=== PATIENT | male | born 1925 | race Caucasian/White ===

== ENCOUNTER 2017-01-08 12:32 | Emergency (ER) | payer OTHER, BC ==
[2017-01-08 12:47] VITALS: TEMP 98.4; BMI 31.3
--- NOTE | 2017-01-08 13:03 | PDOC ---
History of Present Illness - General History Source: Patient, Spouse - History of Present Illness Occurred: reports: this morning Pain Location: reports: lower extremity <Starla Ledbetter - Last Filed: 01/08/17 18:55> <Brianna Hoang - Last Filed: 01/08/17 20:58> - General Chief Complaint: Pain Stated Complaint: HIP PAIN Time Seen by Provider: 01/08/17 12:46 Past History - Past Medical History Anemia: No Asthma: No Cancer: Yes (PROSTATE) Cardiac Disorders: No CVA: Yes (TIA) COPD: Yes CHF: No Dementia: No Diabetes: No GI Disorders: No Disorders: Yes HTN: Yes Hypercholesterolemia: No Liver Disease: No Suicide Attempt (Hx): No Seizures: No Thyroid Disease: No - Surgical History Abdominal Surgery: No Appendectomy: No Cardiac Surgery: Yes (Stents) Cholecystectomy: No Lung Surgery: No Neurologic Surgery: No - Psycho/Social/Smoking Cessation Hx Anxiety: No Suicidal Ideation: No Smoking Status: No Smoking History: Former smoker Have you smoked in the past 12 months: No Number of Cigarettes Smoked Daily: 0 If you are a former smoker, when did you quit?: over 20 years go Information on smoking cessation initiated: No Hx Alcohol Use: No Drug/Substance Use Hx: No Substance Use Type: None Hx Substance Use Treatment: No <Starla Ledbetter - Last Filed: 01/08/17 18:55> <Brianna Hoang - Last Filed: 01/08/17 20:58> - Past Medical History Allergies/Adverse Reactions: Allergies Allergy/AdvReac Type Severity Reaction Status Date / Time Anesthetics - Angle Type- Allergy Unknown Verified 01/08/17 12:45 Parabens [Anesthetics - Angle Type] latex Allergy Verified 01/08/17 12:45 Home Medications: Ambulatory Orders Albuterol 0.083% Nebulizer Lela [Ventolin 0.083% Nebulizer Soln -] 1 neb NEB BID 09/30/14 Amlodipine Besylate [Norvasc -] 5 mg PO DAILY 09/30/14 Aspirin/Dipyridamole [Aggrenox -] 1 combo PO BID 09/30/14 Cholecalciferol (Vitamin D3) [Vitamin D3] 1,000 unit PO DAILY 09/30/14 Cholestyramine/Sucrose [Cholestyramine Packet] 4 gm PO BID PRN 09/30/14 Fluticasone Propionate [Flovent Hfa] 110 mg IH BID 09/30/14 Levetiracetam [Keppra -] 750 mg PO BID 09/30/14 Lipase/Protease/Amylase [Pancrease EC Capsule] 4 each PO DAILY 09/30/14 Loratadine 10 mg PO DAILY 09/30/14 Losartan Potassium 50 mg PO DAILY 09/30/14 Montelukast Na [Singulair -] 10 mg PO HS 09/30/14 Simvastatin [Zocor] 20 mg PO HS 09/30/14 Solifenacin Succinate [Vesicare] 10 mg PO DAILY 09/30/14 Tamsulosin HCl [Flomax -] 0.4 mg PO DAILY 09/30/14 Tiotropium [place] [Spiriva] 1 inh PO DAILY 09/30/14 Lipase/Protease/Amylase [Pancrelipase 5,000 Dr Capsule -] 2 each PO BIDWM #60 cap 10/06/14 Oxymetazoline 0.05% Nasal Soln [Afrin -] 2 spray NS BID PRN #7 spraybtl Ranitidine [Zantac -] 150 mg PO BID #30 tablet 10/06/14 Sulfamethoxazole/Trimethoprim [Bactrim DS -] 1 tab PO BID #14 tablet 01/08/17 Tramadol HCl 50 mg PO Q6H #20 tablet MDD 200mg 01/08/17 Review of Systems - Review of Systems Constitutional: No: Chills, Fever HEENTM: No: Difficulty Swallowing Respiratory: No: Shortness of Breath Cardiac (ROS): No: Chest Pain ABD/GI: No: Nausea, Vomiting : Yes: Flank Pain. No: Dysuria, Hematuria Musculoskeletal: Yes: Joint Pain. No: Back Pain Neurological: Yes: Dizziness. No: Headache, Weakness <Starla Ledbetter - Last Filed: 01/08/17 18:55> *Physical Exam - Vital Signs Last Vital Signs Temp Pulse Resp BP Pulse Ox 98.4 F 88 20 149/74 98 01/08/17 12:39 01/08/17 12:39 01/08/17 12:39 01/08/17 12:39 01/08/17 12:39 - Physical Exam General Appearance: Yes: Appropriately Dressed. No: Apparent Distress HEENT: positive: Normal Voice Neck: positive: Supple Respiratory/Chest: positive: Lungs Clear, Normal Breath Sounds. negative: Respiratory Distress Gastrointestinal/Abdominal: positive: Soft Musculoskeletal: negative: CVA Tenderness Extremity: positive: Normal Inspection, Tender (poorly localized ttp over R flank, no rash) Integumentary: positive: Dry, Warm Neurologic: positive: Fully Oriented, Alert, Normal Mood/Affect, Motor Strength 5/5, Finger to Nose. negative: Facial Droop (Magalie intact, no drift) <Starla Ledbetter - Last Filed: 01/08/17 18:55> - Vital Signs Last Vital Signs Temp Pulse Resp BP Pulse Ox 98.4 F 76 20 116/55 96 01/08/17 12:39 01/08/17 20:07 01/08/17 20:07 01/08/17 20:07 01/08/17 20:07 <Brianna Hoang - Last Filed: 01/08/17 20:58> ED Treatment Course - LABORATORY CBC & Chemistry Diagram: 01/08/17 13:36 01/08/17 13:36 - RADIOLOGY Radiology Studies Ordered: Category Date Time Status CHEST X-RAY PORTABLE* [RAD] Stat Radiology 01/08/17 12:57 Ordered HIP & PELVIS-RIGHT [RAD] Stat Radiology 01/08/17 12:57 Ordered RIBS BILATERAL [RAD] Stat Radiology 01/08/17 12:56 Ordered SPINE-LUMBAR SACRAL [RAD] Stat Radiology 01/08/17 12:57 Ordered <GormaniaStarla - Last Filed: 01/08/17 18:55> - LABORATORY CBC & Chemistry Diagram: 01/08/17 13:36 01/08/17 13:36 - ADDITIONAL ORDERS Additional order review: Laboratory Results 01/08/17 01/08/17 13:36 13:31 Sodium 139 Potassium 5.1 Chloride 102 Carbon Dioxide 26 Anion Gap 11 BUN 31 H D Creatinine 1.2 Creat Clearance w eGFR 57.01 Random Glucose 97 Calcium 9.1 Total Bilirubin 0.4 AST 22 D ALT 20 D Alkaline Phosphatase 68 Creatine Kinase 114 Troponin I < 0.02 Total Protein 7.1 Albumin 3.5 Urine Color Ltyellow Urine Appearance Clear Urine pH 5.0 Ur Specific [place] 1.019 Urine Protein Negative Urine Glucose (UA) Negative Urine Ketones Negative Urine Blood 2+ H Urine Nitrite Negative Urine Bilirubin Negative Urine Urobilinogen Negative Ur Leukocyte Esterase 2+ H Urine RBC 47 Urine WBC 42 Ur Epithelial Cells Rare 01/08/17 13:36 RBC 4.41 MCV 91.7 MCHC 32.2 RDW 16.0 H MPV 7.7 Neutrophils % 86.5 H D Lymphocytes % 6.2 L D Monocytes % 6.2 Eosinophils % 0.4 D Basophils % 0.7 - Medications Given in the ED: ED Medications Discontinued Medications Generic Name Dose Route Start Last Admin Trade Name Jordon PRN Reason Stop Dose Admin Diazepam 5 mg 01/08/17 13:29 01/08/17 13:52 Valium - PO 01/08/17 13:30 5 mg ONCE ONE Administration Ceftriaxone Sodium 1 gm/ 50 mls @ 100 mls/hr 01/08/17 17:56 01/08/17 18:22 Dextrose IVPB 01/08/17 18:25 100 mls/hr ONCE ONE Administration Ketorolac Tromethamine 30 mg 01/08/17 13:30 01/08/17 14:07 Toradol Injection - IVPUSH 01/08/17 13:31 30 mg ONCE ONE Administration Tramadol HCl 50 mg 01/08/17 17:45 01/08/17 17:54 Ultram - PO 01/08/17 17:46 50 mg ONCE ONE Administration <Brianna Hoang - Last Filed: 01/08/17 20:58> Medical Decision Making - Medical Decision Making 01/08/17 12:58 89 yo M, obesity, bladder cancer s/p surgery, prostate ca, s/p chemo/xrt, COPD on oxygen, HTN, CAD w/ stents, CHF, CVA/TIA, ambulate w/ walker, BIB for R hip pain. pt reports waking up with R hip pain this am, unable to describe, constant and has not been able to bear weight since. Denies trauma. Took tylenol w/ no relief. States he has "all sorts of pain" chronically but that this pain is new. Also c/o "whooziness" this am, similar to in the past. Denies vertigo, visual changes, n/v, focal weakness, chest pain or sob. See exam R sided pain No trauma Unclear source at this time as has poorly localized tenderness on exam ?MSK vs renal stone -pain control -XRs -reassess -labs ?dizziness Recurrent No focal deficit on exam No chest/resp complaints -ekg/cxr/labs 01/08/17 13:05 01/08/17 15:49 Wbc 12 w/ +bld and LE on ua. Ucx sent. Will give abx for possibly pyelo as per d /w Dr Geronimo. Will dry scan r/o stone at this time. Pain improved at present 01/08/17 17:48 XRs w/ disc disease to LS spine as d/w ED attg. CR without no stone or s/o infection. Pt continues to c/o pain though improved. Will continue to manage pain and reassess 01/08/17 17:57 01/08/17 18:27 01/08/17 18:56 Pain improved and pt able to bear weight. insisting on us admitting pt as she states she is afraid she cannot adequately care for pt at home. I explained to spouse that as pt feeling better, it is worth it to send him home on pain meds and abx and see if he continues to improve. I explained to her that pt can always return for persistent or worsening of sxs but that here is no medical reason to admit at this time and that ED cannot perform social admissions. informed that she can f/u with PMD to assist w/ home care going forward. verbalized understanding but states she will write "under protest" on discharge paper. offered transport but states she has a close family friend who can come pick pt up and bring his oxygen tank. ED nurse aware 01/08/17 19:08 01/08/17 19:12 <Starla Ledbetter - Last Filed: 01/08/17 18:55> *DC/Admit/Observation/Transfer <Starla Ledbetter - Last Filed: 01/08/17 18:55> <Brianna Hoang - Last Filed: 01/08/17 20:58> Diagnosis at time of Disposition: Flank pain - Discharge Dispostion Disposition: HOME Condition at time of disposition: Improved - Prescriptions Prescriptions: Sulfamethoxazole/Trimethoprim [Bactrim DS -] 1 tab PO BID #14 tablet Tramadol HCl 50 mg PO Q6H #20 tablet MDD 200mg - Referrals Referrals: Karli Walsh MD [Primary Care Provider] - - Patient Instructions Printed Discharge Instructions: Low Back Pain Additional Instructions: Please take medications as prescribed Return to ED for persistent and/or worsening symptoms Please follow with your PMD for assistance with home services
[2017-01-08] MEDS ORDERED: diazePAM 5 MG TABLET PO ONE (13:29)
[2017-01-08] MEDS ORDERED: KETOROLAC TROMETHAMINE 30 MG/1 ML VIAL IVPUSH ONE (13:30)
[2017-01-08] MEDS ORDERED: KETOROLAC TROMETHAMINE 30 MG/1 ML VIAL ONE (13:35)
[2017-01-08] MEDS ORDERED: diazePAM 5 MG TABLET ONE (13:35)
[2017-01-08 14:44] LABS: BASOPHIL 0.7 % (0-2.0); EOSINOPHIL 0.4 % (0-4.5); MCH 29.6 pg (25.7-33.7); MCHC 32.2 g/dl (32.0-35.9); MEAN CELL VOLUME 91.7 fl (80-96); MEAN PLT VOLUME 7.7 fl (7.5-11.1); NEUTROPHILS 86.5 % (42.8-82.8); PLATELET COUNT 172 K/MM3 (134-434)
[2017-01-08 14:59] LABS: ALBUMIN 3.5 g/dl (3.4-5.0); ANION GAP 11 (8-16); BILIRUBIN,TOTAL 0.4 mg/dL (0.2-1.0); CALCIUM 9.1 mg/dL (8.5-10.1); CO2 26 mmol/L (21-32); COCKROFT - GAULT 53.54; CREATININE 1.2 mg/dL (0.7-1.3); GLUCOSE,RANDOM 97 mg/dL (74-106); SGPT/ALT 20 U/L (12-78); TOT PROT 7.1 g/dl (6.4-8.2)
[2017-01-08 15:02] LABS: ALK PHOS 68 U/L (45-117); TROPONIN I < 0.02 ng/ml (0.00-0.05)
[2017-01-08 15:03] LABS: SGOT/AST 22 U/L (15-37)
[2017-01-08 15:26] LABS: URINE APPEARANCE CLEAR; URINE BILIRUBIN NEGATIVE (NEGATIVE); URINE COLOR LTYELLOW; URINE GLUCOSE (UA) NEGATIVE (NEGATIVE); URINE KETONE NEGATIVE (NEGATIVE); URINE NITRITE NEGATIVE (NEGATIVE); URINE PROTEIN NEGATIVE (NEGATIVE); URINE UROBILINOGEN NEGATIVE E.U./dl (0.2-1.0)
[2017-01-08 15:36] LABS: URINE BLOOD 2+ (NEGATIVE); URINE LEUK ESTERASE 2+ (NEGATIVE)
[2017-01-08 16:00] LABS: URINE RBC 47 /hpf (0-3); URINE WBC 42 /hpf (3-5)
--- NOTE | 2017-01-08 17:35 | PDOC ---
[id number] 98 01/08/17 12:39 01/08/17 12:39 01/08/17 12:39 01/08/17 12:39 01/08/17 12:39 ED Treatment Course - LABORATORY CBC & Chemistry Diagram: 01/08/17 13:36 01/08/17 13:36 - ADDITIONAL ORDERS Additional order review: Laboratory Results 01/08/17 01/08/17 13:36 13:31 Sodium 139 Potassium 5.1 Chloride 102 Carbon Dioxide 26 Anion Gap 11 BUN 31 H D Creatinine 1.2 Creat Clearance w eGFR 57.01 Random Glucose 97 Calcium 9.1 Total Bilirubin 0.4 AST 22 D ALT 20 D Alkaline Phosphatase 68 Creatine Kinase 114 Troponin I < 0.02 Total Protein 7.1 Albumin 3.5 Urine Color Ltyellow Urine Appearance Clear Urine pH 5.0 Ur Specific [place] 1.019 Urine Protein Negative Urine Glucose (UA) Negative Urine Ketones Negative Urine Blood 2+ H Urine Nitrite Negative Urine Bilirubin Negative Urine Urobilinogen Negative Ur Leukocyte Esterase 2+ H Urine RBC 47 Urine WBC 42 Ur Epithelial Cells Rare 01/08/17 13:36 RBC 4.41 MCV 91.7 MCHC 32.2 RDW 16.0 H MPV 7.7 Neutrophils % 86.5 H D Lymphocytes % 6.2 L D Monocytes % 6.2 Eosinophils % 0.4 D Basophils % 0.7 - Medications Given in the ED: ED Medications Discontinued Medications Generic Name Dose Route Start Last Admin Trade Name Freq PRN Reason Stop Dose Admin Diazepam 5 mg 01/08/17 13:29 01/08/17 13:52 Valium - PO 01/08/17 13:30 5 mg ONCE ONE Administration Ketorolac Tromethamine 30 mg 01/08/17 13:30 01/08/17 14:07 Toradol Injection - IVPUSH 01/08/17 13:31 30 mg ONCE ONE Administration Medical Decision Making - Medical Decision Making 01/08/17 17:34 Patient seen and evaluated with the nurse practitioner. I agree with the overall evaluation, assessment, and management with the following summary of visit: 89-year-old male with nonspecific right-sided abdominal pain but no other localizing complaints. Workup reveals white count of 12, chemistries within normal limits, negative troponin, but urinalysis with elevated red and white blood cells. Will check CT abdomen and pelvis to rule out obstruction or neoplastic pathology , would otherwise treat for UTI/pyelonephritis with oral antibiotics given well- appearing and afebrile. *DC/Admit/Observation/Transfer Diagnosis at time of Disposition: Flank pain - Discharge Dispostion Disposition: HOME Condition at time of disposition: Improved - Prescriptions Prescriptions: Sulfamethoxazole/Trimethoprim [Bactrim DS -] 1 tab PO BID #14 tablet Tramadol HCl 50 mg PO Q6H #20 tablet MDD 200mg - Referrals Referrals: Karli Walsh MD [Primary Care Provider] - - Patient Instructions Printed Discharge Instructions: Low Back Pain Additional Instructions: Please take medications as prescribed Return to ED for persistent and/or worsening symptoms Please follow with your PMD for assistance with home services
[2017-01-08] MEDS ORDERED: traMADol HCL 50 MG TABLET PO ONE (17:45)
[2017-01-08] MEDS ORDERED: traMADol HCL 50 MG TABLET ONE (17:49)
[2017-01-08] MEDS ORDERED: CEFTRIAXONE 1 GM in DEXTROSE 5%-WATER - 50 ML IVPB ONE (17:56)
[2017-01-08] MEDS ORDERED: CEFTRIAXONE 50 ML ONE (18:00)
[2017-01-08 20:08] VITALS: BP 116/55; PULSE 76
--- NOTE | 2017-01-09 13:30 | EKG ---
Test Reason : Blood Pressure : / mmHG Vent. Rate : 124 BPM Atrial Rate : 077 BPM P-R Int : 000 ms QRS Dur : 148 ms QT Int : 422 ms P-R-T Axes : 040 -28 020 degrees QTc Int : 606 ms SINUS TACHYCARDIA WITH 1ST DEGREE A-V BLOCK RIGHT BUNDLE BRANCH BLOCK ABNORMAL ECG Confirmed by AVANI JOY MD ([id number]) on 01/09/2017 1:30:10 PM Referred By: Confirmed By:AVANI JOY MD
== END 2017-01-08 20:09 | disposition home or self-care (01) ==
LOC: JER 12:32
PROC: 3E03329 Introduction of Other Anti-infective into Peripheral Vein, Percutaneous Approach (ICD-10-PCS; principal; 2017-01-08)
PROC: 3E0333Z Introduction of Anti-inflammatory into Peripheral Vein, Percutaneous Approach (ICD-10-PCS; 2017-01-08)
DX: R10.31 Right lower quadrant pain (principal); I25.10 Atherosclerotic heart disease of native coronary artery without angina pectoris; I11.0 Hypertensive heart disease with heart failure; Z95.5 Presence of coronary angioplasty implant and graft; Z86.73 Personal history of transient ischemic attack (TIA), and cerebral infarction without residual deficits; J44.9 Chronic obstructive pulmonary disease, unspecified; Z99.81 Dependence on supplemental oxygen; Z85.46 Personal history of malignant neoplasm of prostate; Z85.51 Personal history of malignant neoplasm of bladder
CPT/HCPCS: 36415; 71010-TC; 71111-TC; 72100-TC; 73523-TC; 74176-TC; 80053; 81003; 81015; 82550; 84484; 85025; 87086; 93005; 93010; 96365; 96375; 99282-25

== ENCOUNTER 2017-03-08 02:50 | Inpatient (IN) | payer OTHER, BC ==
[2017-03-08 03:10] VITALS: BMI 31.3
[2017-03-08 03:16] LABS: BASOPHIL 0.3 % (0-2.0); EOSINOPHIL 1.4 % (0-4.5); MCH 29.8 pg (25.7-33.7); MCHC 32.6 g/dl (32.0-35.9); MEAN CELL VOLUME 91.6 fl (80-96); MEAN PLT VOLUME 8.5 fl (7.5-11.1); PLATELET COUNT 222 K/MM3 (134-434); RDW 16.2 % (11.9-15.9); WHITE BLOOD COUNT 18.7 K/mm3 (4.0-10.0)
--- NOTE | 2017-03-08 03:29 | PDOC ---
History of Present Illness - General History Source: Patient, EMS, Family, Old Records Exam Limitations: No Limitations - History of Present Illness Initial Comments: 03/08/17 03:56 The patient is a 89 year old male, accompanied by , with a significant past medical history of CHF, COPD, CVA/TIA, hypertension, PVD, prostate cancer, cardiac stents, BIBA to the emergency department today for further evaluation of sudden worsening shortness of breath since. As per EMS the patient was non verbal but was responsive. In the ED the patients confirmed his living will to be DNR and DNI. EMS administered 1 duoneb en route to the emergency department. PCP: Dr. Walsh (not affiliated with [facility]) <Pardeep Marvin - Last Filed: 03/08/17 03:56> <Zora Mccallum - Last Filed: 03/08/17 05:19> - General Chief Complaint: Respiratory Distress Stated Complaint: DIFFICULTY BREATHING Time Seen by Provider: 03/08/17 03:04 Past History <Pardeep Marvin - Last Filed: 03/08/17 03:56> - Past Medical History Anemia: No Asthma: No Cancer: Yes (PROSTATE) Cardiac Disorders: No CVA: Yes (TIA) COPD: Yes CHF: No Dementia: No Diabetes: No GI Disorders: No Disorders: Yes HTN: Yes Hypercholesterolemia: No Liver Disease: No Suicide Attempt (Hx): No Seizures: No Thyroid Disease: No - Surgical History Abdominal Surgery: No Appendectomy: No Cardiac Surgery: Yes (Stents) Cholecystectomy: No Lung Surgery: No Neurologic Surgery: No - Psycho/Social/Smoking Cessation Hx Anxiety: No Suicidal Ideation: No Smoking Status: No Smoking History: Unknown if ever smoked Have you smoked in the past 12 months: No Number of Cigarettes Smoked Daily: 0 If you are a former smoker, when did you quit?: over 20 years go Information on smoking cessation initiated: No Hx Alcohol Use: No Drug/Substance Use Hx: No Substance Use Type: None Hx Substance Use Treatment: No <Zora Mccallum - Last Filed: 03/08/17 05:19> - Past Medical History Allergies/Adverse Reactions: Allergies Allergy/AdvReac Type Severity Reaction Status Date / Time Anesthetics - Angle Type- Allergy Unknown Verified 03/08/17 03:04 Parabens [Anesthetics - Angle Type] latex Allergy Verified 03/08/17 03:04 Home Medications: Ambulatory Orders Albuterol 0.083% Nebulizer Lela [Ventolin 0.083% Nebulizer Soln -] 1 neb NEB BID 09/30/14 Amlodipine Besylate [Norvasc -] 5 mg PO DAILY 09/30/14 Aspirin/Dipyridamole [Aggrenox -] 1 combo PO BID 09/30/14 Cholecalciferol (Vitamin D3) [Vitamin D3] 1,000 unit PO DAILY 09/30/14 Cholestyramine/Sucrose [Cholestyramine Packet] 4 gm PO BID PRN 09/30/14 Fluticasone Propionate [Flovent Hfa] 110 mg IH BID 09/30/14 Levetiracetam [Keppra -] 750 mg PO BID 09/30/14 Lipase/Protease/Amylase [Pancrease EC Capsule] 4 each PO DAILY 09/30/14 Loratadine 10 mg PO DAILY 09/30/14 Losartan Potassium 50 mg PO DAILY 09/30/14 Montelukast Na [Singulair -] 10 mg PO HS 09/30/14 Simvastatin [Zocor] 20 mg PO HS 09/30/14 Solifenacin Succinate [Vesicare] 10 mg PO DAILY 09/30/14 Tamsulosin HCl [Flomax -] 0.4 mg PO DAILY 09/30/14 Tiotropium [place] [Spiriva] 1 inh PO DAILY 09/30/14 Lipase/Protease/Amylase [Pancrelipase 5,000 Dr Capsule -] 2 each PO BIDWM #60 cap 10/06/14 Oxymetazoline 0.05% Nasal Soln [Afrin -] 2 spray NS BID PRN #7 spraybtl Ranitidine [Zantac -] 150 mg PO BID #30 tablet 10/06/14 Sulfamethoxazole/Trimethoprim [Bactrim DS -] 1 tab PO BID #14 tablet 01/08/17 Tramadol HCl 50 mg PO Q6H #20 tablet MDD 200mg 01/08/17 Review of Systems - Review of Systems Able to Perform ROS?: Yes Comments:: 03/08/17 03:56 GENERAL/CONSTITUTIONAL: No fever or chills. No weakness. HEAD, EYES, EARS, NOSE AND THROAT: No change in vision. No ear pain or discharge. No sore throat. GASTROINTESTINAL: No nausea, vomiting, diarrhea or constipation. GENITOURINARY: No dysuria, frequency, or change in urination. CARDIOVASCULAR: No chest pain. RESPIRATORY: (+) Shortness of breath. No cough, wheezing, or hemoptysis. MUSCULOSKELETAL: No joint or muscle swelling or pain. No neck or back pain. SKIN: No rash NEUROLOGIC: No headache, vertigo, loss of consciousness, or change in strength/ sensation. ENDOCRINE: No increased thirst. No abnormal weight change. HEMATOLOGIC/LYMPHATIC: No anemia, easy bleeding, or history of blood clots. ALLERGIC/IMMUNOLOGIC: No hives or skin allergy. <Pardeep Marvin - Last Filed: 03/08/17 03:56> *Physical Exam - Vital Signs Last Vital Signs Temp Pulse Resp BP Pulse Ox 82 32 H 125/59 89 L 03/08/17 03:39 03/08/17 03:39 03/08/17 03:39 03/08/17 03:32 - Physical Exam Comments: 03/08/17 03:56 GENERAL: (+) Awake, alert, diaphoretic HEAD: No signs of trauma EYES: PERRLA, EOMI, sclera anicteric, conjunctiva clear ENT: Auricles normal inspection, nares patent, Moist mucosa NECK: Normal ROM, supple, no lymphadenopathy, JVD, or masses LUNGS: (+) Severe respiratory distress with accessory muscle use and decreased breath sound. HEART: (+) Tachycardic regular rhythm, normal S1 and S2, no murmurs, rubs or gallops ABDOMEN: Soft, nontender, normoactive bowel sounds. No guarding, no rebound. No masses EXTREMITIES: Normal range of motion, no edema. No clubbing or cyanosis. No cords, erythema, or tenderness. NEUROLOGICAL: Normal speech SKIN: (+) Cool, clammy, normal turgor, no rashes or lesions noted. <Pardeep Marvin - Last Filed: 03/08/17 03:56> - Vital Signs Last Vital Signs Temp Pulse Resp BP Pulse Ox 121 H 28 H 125/59 91 L 03/08/17 03:05 03/08/17 02:55 03/08/17 02:55 03/08/17 03:05 <Zora Mccallum - Last Filed: 03/08/17 05:19> Heart Score/ECG Review #1 General ECG Interpretation: Sinus Rhythm, Normal Rate (sinus tachycardia 110, RBBB), Normal Intervals, No acute ischemic changes Compared to previous ECG there are: No significant change - [place]: Left [place] Deviation <Zora Mccallum - Last Filed: 03/08/17 05:19> ED Treatment Course - LABORATORY CBC & Chemistry Diagram: 03/08/17 03:10 03/08/17 03:10 - ADDITIONAL ORDERS Additional order review: Laboratory Results 03/08/17 03/08/17 03/08/17 03:10 03:10 03:10 INR 0.92 PTT (Actin FS) 24.9 L Sodium 141 Potassium 4.9 Chloride 106 Carbon Dioxide 22 Anion Gap 13 BUN 43 H D Creatinine 1.9 H D Creat Clearance w eGFR 33.54 Random Glucose 111 H Calcium 8.7 Total Bilirubin 0.7 D AST 18 ALT 18 Alkaline Phosphatase 60 Creatine Kinase 160 D CK-MB (CK-2) Rel Index Cancelled Troponin I 0.28 H D B-Natriuretic Peptide 1591.26 H Total Protein 6.9 Albumin 3.6 03/08/17 03:10 RBC 4.41 MCV 91.6 MCHC 32.6 RDW 16.2 H MPV 8.5 D Neutrophils % 94.0 H Lymphocytes % 4.1 L D Monocytes % 0.2 L D Eosinophils % 1.4 D Basophils % 0.3 <Pardeep Marvin - Last Filed: 03/08/17 03:56> - LABORATORY CBC & Chemistry Diagram: 03/08/17 03:10 03/08/17 03:10 - ADDITIONAL ORDERS Additional order review: 03/08/17 03:10 RBC 4.41 MCV 91.6 MCHC 32.6 RDW 16.2 H MPV 8.5 D Neutrophils % 94.0 H Lymphocytes % 4.1 L D Monocytes % 0.2 L D Eosinophils % 1.4 D Basophils % 0.3 - RADIOLOGY Radiology Studies Ordered: Category Date Time Status CHEST X-RAY PORTABLE* [RAD] Stat Radiology 03/08/17 03:06 Ordered <Zora Mccallum - Last Filed: 03/08/17 05:19> Medical Decision Making - Critical Care Time Total Critical Care Time (minutes): 30 Critical Care Statement: The care of this patient involved high complexity decision making to prevent further life threatening deterioration of the patient 's condition and/or to evalute & treat vital organ system(s) failure or risk of failure. - Medical Decision Making 03/08/17 03:24 89 yo male with h/o metastatic bladder cancer HTN CAD HLD, severe end stage ecmphysema copd, currently DNR DNI, here wtih sudden onset worsenig sob . pt became very labored and sob. no f/c no cough . no cp. on EMS arrival pt was in resp distress, found to be hypoxic in 80's and hypotensive. 80's systolic. given IVF, due to DNR DNI not intubated in feild. levophed started. duoneb, and 10mg decodron. on cp pt improved and more alert on arrival. at bedside who is health care proxy. on exam awake, alert, diaphoretic, sever resp distress with accessory muscle use , tachypneic, decreased breath sounds bilaterally. heart reg tachycardia, no mrg. abd soft NT ND ext cool clammy. no edema. differential: copd exacerbation PE CHF pneumonia, [place] plan ekg labs port cxr continued BIPAP labs. per discussion with pt health care proxy present pt is DNR DNI., ok with Bipap. 03/08/17 03:30 03/08/17 03:34 03/08/17 05:15 <Zora Mccallum - Last Filed: 03/08/17 05:19> *DC/Admit/Observation/Transfer - Attestations Scribe Attestion: 03/08/17 03:56 Documentation prepared by Pardeep Marvin, acting as medical dermatologist for Zora Mccallum MD. <Pardeep Marvin - Last Filed: 03/08/17 03:56> - Discharge Dispostion Admit: Yes <Zora Mccallum - Last Filed: 03/08/17 05:19> Diagnosis at time of Disposition: COPD (chronic obstructive pulmonary disease), Pneumonia - Discharge Dispostion Condition at time of disposition: Critical - Referrals Referrals: Karli Walsh MD [Primary Care Provider] -
[2017-03-08 03:37] LABS: INR 0.92 (0.82-1.09); PROTHROMBIN TIME (PATIENT) 10.1 SEC (9.98-11.88)
[2017-03-08 03:40] LABS: ACTIVATED PTT 24.9 SECONDS (26.9-34.4)
[2017-03-08 03:43] LABS: ALBUMIN 3.6 g/dl (3.4-5.0); ANION GAP 13 (8-16); BILIRUBIN,TOTAL 0.7 mg/dL (0.2-1.0); CALCIUM 8.7 mg/dL (8.5-10.1); CO2 22 mmol/L (21-32); CREATININE 1.9 mg/dL (0.7-1.3); GLUCOSE,RANDOM 111 mg/dL (74-106); SGOT/AST 18 U/L (15-37); SGPT/ALT 18 U/L (12-78); TOT PROT 6.9 g/dl (6.4-8.2)
[2017-03-08 03:45] LABS: ALK PHOS 60 U/L (45-117); TROPONIN I 0.28 ng/ml (0.00-0.05)
[2017-03-08] MEDS ORDERED: PIPERACILLIN/TAZOB 3.375 GM 3.375 GM in DEXTROSE 5%-WATER - 50 ML IVPB ONE (04:39)
[2017-03-08] MEDS ORDERED: VANCOMYCIN 1 GRAM (PRE-DOCKED) 1,000 MG/250 ML BAG IVPB ONE (04:42)
[2017-03-08] MEDS ORDERED: ALBUTEROL SO4 2.5/IPRATROPIUM 0.5 INH SOL 3 ML VIAL.NEB. NEB ONE ×3 (04:42→12:05)
[2017-03-08] MEDS ORDERED: PIPERACILLIN/TAZOB 3.375 GM 50 ML IVPB ONE (04:45)
[2017-03-08] MEDS ORDERED: VANCOMYCIN 1 GRAM (PRE-DOCKED) 250 ML IVPB ONE (04:45)
[2017-03-08] MEDS ORDERED: SODIUM CHLORIDE 0.9% 1000 ML INFUS.BAG IV ONE (05:19)
--- NOTE | 2017-03-08 05:34 | HP ---
CHIEF COMPLAINT: sob PCP: Dr. Walsh HISTORY OF PRESENT ILLNESS: This is an 89 year old male with significant PMHx of COPD, CHF, CAD, COPD, CVA, brought to the emergency room by EMS, due to worsening shortness of breath. Patient is on 3L of [place] at home 24hrs per day. As per patient was doing well , went to graduation green party, went home, about 1pm daughter noticed he wasn't himself and he vomiting on himself. They asked him to go to the bathroom to wash up and then noticed him to start to deteriorate, un able to ambulate and unresponsive. states that he usually gets short of breath the humiditiy and gets URIs frequency As per chart patient was non verbal but responsive. En route to ER patient was hypotensive, systolic in the 80s, and hypoxic. He was given a duoneb treatment and started on levophed. Arrival to ER , blood pressure improved. Patient still hypoxic. He was started on BiPAP. ROS as per . Denies fever, chills, nausea, chest pain, palpitations. states that hes was recently finished course of antibiotics, ciprofloxacin 500mg bid for 8 days, for UTI. states that he is incontinent of urine at times due to hx of prostate CA. She also stats that after antibiotics he usually has bouts of diarrhea and currently on lactobacillus. ER course notable for tachycardia, tachypnea, leukocytosis. CXR revealing RLL infiltrate. DNR/DNI Recent Travel: no PAST MEDICAL HISTORY: COPD, CAD, COPD, CVA, CHF PAST SURGICAL HISTORY: s/p 2 stents; bladder surgery 2014 to remove cancerous polyps; Social History: Smoking:heavy smoker quit 10-12 years ago Alcohol:1-2 glasses of wine per day Drugs: no Family History: Allergies Anesthetics - Angle Type- Parabens [Anesthetics - Angle Type] Allergy (Unknown, Verified 03/08/17 03:04) latex Allergy (Verified 03/08/17 03:04) HOME MEDICATIONS: Home Medications Medication Instructions Recorded Albuterol 0.083% Nebulizer Lela 1 neb NEB BID 09/30/14 [Ventolin 0.083% Nebulizer Soln -] Amlodipine Besylate [Norvasc -] 5 mg PO DAILY 09/30/14 Aspirin/Dipyridamole [Aggrenox -] 1 combo PO BID 09/30/14 Cholecalciferol (Vitamin D3) 1,000 unit PO DAILY 09/30/14 [Vitamin D3] Cholestyramine/Sucrose 4 gm PO BID PRN 09/30/14 [Cholestyramine Packet] Fluticasone Propionate [Flovent 110 mg IH BID 09/30/14 Hfa] Levetiracetam [Keppra -] 750 mg PO BID 09/30/14 Lipase/Protease/Amylase [Pancrease 4 each PO DAILY 09/30/14 EC Capsule] Loratadine 10 mg PO DAILY 09/30/14 Losartan Potassium 50 mg PO DAILY 09/30/14 Montelukast Na [Singulair -] 10 mg PO HS 09/30/14 Simvastatin [Zocor] 20 mg PO HS 09/30/14 Solifenacin Succinate [Vesicare] 10 mg PO DAILY 09/30/14 Tamsulosin HCl [Flomax -] 0.4 mg PO DAILY 09/30/14 Tiotropium [place] [Spiriva] 1 inh PO DAILY 09/30/14 Lipase/Protease/Amylase 2 each PO BIDWM #60 cap 10/06/14 [Pancrelipase 5,000 Dr Capsule -] Oxymetazoline 0.05% Nasal Soln 2 spray NS BID PRN #7 spraybtl 10/06/14 [Afrin -] Ranitidine [Zantac -] 150 mg PO BID #30 tablet 10/06/14 Sulfamethoxazole/Trimethoprim 1 tab PO BID #14 tablet 01/08/17 [Bactrim DS -] Tramadol HCl 50 mg PO Q6H #20 tablet MDD 200mg 01/08/17 PHYSICAL EXAMINATION Vital Signs - 24 hr 03/08/17 03/08/17 03/08/17 02:55 03:05 03:32 Pulse Rate 120 H 121 H Pulse Rate [ Left Apical] Respiratory 28 H Rate Blood Pressure 125/59 Blood Pressure [Right Arm] O2 Sat by Pulse 90 L 91 L 89 L Oximetry (%) 03/08/17 03/08/17 03:39 05:12 Pulse Rate Pulse Rate [ 82 Left Apical] Respiratory 32 H Rate Blood Pressure Blood Pressure 125/59 [Right Arm] O2 Sat by Pulse 93 L Oximetry (%) GENERAL: Awake, alert, on BiAP, not able to talk; when i asked if he was in pain he nodded yes HEAD: Normal with no signs of trauma. EYES: Pupils equal, round and reactive to light, extraocular movements intact, sclera anicteric, conjunctiva clear. No lid lag. LUNGS: scattered rhonchi HEART:distant heart sound Regular rate and rhythm, normal S1 and S2 ABDOMEN: Soft, nontender, obese, normoactive bowel sounds, no guarding, no rebound, no masses. UPPER EXTREMITIES: 2+ pulses, warm, well-perfused. No cyanosis. No clubbing. No peripheral edema. LOWER EXTREMITIES: 2+ pulses, warm, well-perfused. No calf tenderness. no edema NEUROLOGICAL: on bipap; non verbal SKIN: Warm, dry, normal turgor, no rashes or lesions noted, normal capillary refill. Laboratory Results - last 24 hr 03/08/17 03/08/17 03/08/17 03:10 03:10 03:10 WBC 18.7 H D RBC 4.41 Hgb 13.1 Hct 40.4 MCV 91.6 MCHC 32.6 RDW 16.2 H Plt Count 222 D MPV 8.5 D Neutrophils % 94.0 H Lymphocytes % 4.1 L D Monocytes % 0.2 L D Eosinophils % 1.4 D Basophils % 0.3 INR 0.92 PTT (Actin FS) 24.9 L Sodium 141 Potassium 4.9 Chloride 106 Carbon Dioxide 22 Anion Gap 13 BUN 43 H D Creatinine 1.9 H D Creat Clearance w eGFR 33.54 Random Glucose 111 H Calcium 8.7 Total Bilirubin 0.7 D AST 18 ALT 18 Alkaline Phosphatase 60 Creatine Kinase 160 D Creatine Kinase Index 1.2 CK-MB (CK-2) 1.994 CK-MB (CK-2) Rel Index Troponin I 0.28 H D B-Natriuretic Peptide 1591.26 H Total Protein 6.9 Albumin 3.6 Blood Type Antibody Screen 03/08/17 03/08/17 03:10 03:10 WBC RBC Hgb Hct MCV MCHC RDW Plt Count MPV Neutrophils % Lymphocytes % Monocytes % Eosinophils % Basophils % INR PTT (Actin FS) Sodium Potassium Chloride Carbon Dioxide Anion Gap BUN Creatinine Creat Clearance w eGFR Random Glucose Calcium Total Bilirubin AST ALT Alkaline Phosphatase Creatine Kinase Creatine Kinase Index CK-MB (CK-2) CK-MB (CK-2) Rel Index Cancelled Troponin I B-Natriuretic Peptide Total Protein Albumin Blood Type O POSITIVE Antibody Screen Negative Current Medications Generic Name Dose Route Start Last Admin Trade Name Freq PRN Reason Stop Dose Admin Aclidinium [place] 1 puff 03/08/17 10:00 Tudorza - IH BID SHELBIE Albuterol/Ipratropium 1 amp 03/08/17 06:00 Duoneb - NEB QIDR SHELBIE Amlodipine Besylate 5 mg 03/08/17 10:00 Norvasc - PO DAILY [facility] Dipyridamole/Aspirin 1 combo 03/08/17 10:00 Aggrenox - PO BID [facility] Heparin Sodium (Porcine) 5,000 unit 03/08/17 10:00 Heparin - SQ Q8H-IV [facility] Vancomycin HCl 1,250 mg/ 250 mls @ 250 mls/hr 03/09/17 05:31 Dextrose IVPB 03/09/17 06:30 ONCE ONE Protocol Levetiracetam 750 mg 03/08/17 10:00 Keppra - PO BID [facility] Losartan Potassium 50 mg 03/08/17 10:00 Cozaar - PO DAILY [facility] Methylprednisolone Sodium Succinate 40 mg 03/08/17 12:00 Solu-Medrol - IVPB DAILY [facility] Montelukast Sodium 10 mg 03/08/17 22:00 Singulair - PO HS [facility] Piperacillin Sod/Tazobactam Sod 4.5 gm 03/08/17 09:00 Zosyn 4.5gm Ivpb (Pre-Docked) IVPB Q6H-IV [facility] Tamsulosin HCl 0.4 mg 03/08/17 08:30 Flomax - PO DAILY@0830 [facility] ASSESSMENT/PLAN: 89 year old male with significant PMHx of COPD, CHF, CAD, COPD, CVA, brought to the emergency room by EMS due to shortness of breath, found to be in acute respiratory failure and hypotensive. Admitted for septic secondary to pneumonia. #sepsis secondary to community pneumonia with acute hypoxic respiratory failure: -Sepsis protocol activated -hypotension resolved with levophed -currently on BiPAP -trend wbc -lactic acid 4.8; repeat 2 hrs -stat IV vancomycin and zosyn in ER -continue vancomycin 1250mg IVPB daily -continue zosyn 4.45 IVPB q8h daily -follow up blood cultures -CXR showing RLL infiltrate -ID consulted -r/o dvt; LE doppler #COPD: on home O2 (3L [place]) -albuterol/ipratropium duoneb Q4h -singular 10mg po qd -turdoza 1 buff bid shelbie -solumedrol 40mg IV daily #elevated troponin most likely due to sepsis -trend second -tele -ecg no st/t wave abnormalities #acute kidney injury stage II most likely secondary to sepsis -BUN 43/Cr 1.9, trend -baseline Cr 1.2 -urine lytes, cr; calculate FeNA; -gentle hydration due to CHF -avoid nephro toxic agents #hx of congestive heart failure: -elevated BNP ; does not seem to be in overload -no crackles; no edema #hypertension: -norvasc 5mg po daily -hold losartan due to YEISON; bp stable FEN: Fluids: 75 mls hr Electrolytes: wnl Diet:low na VTE: heparin sq Disposition: tele Problem List - Problem (1) Sepsis Code(s): A41.9 - SEPSIS, UNSPECIFIED ORGANISM (2) Elevated troponin Code(s): R74.8 - ABNORMAL LEVELS OF OTHER SERUM ENZYMES (3) YEISON (acute kidney injury) Code(s): N17.9 - ACUTE KIDNEY FAILURE, UNSPECIFIED Visit type - Emergency Visit Emergency Visit: Yes ED Registration Date: 03/08/17 Care time: The patient presented to the Emergency Department on the above date and was hospitalized for further evaluation of their emergent condition. - New Patient This patient is new to me today: Yes Date on this admission: 03/08/17 - Critical Care Critical Care patient: Yes Total Critical Care Time (in minutes): 35 Critical Care Statement: The care of this patient involved high complexity decision making to prevent further life threatening deterioration of the patient 's condition and/or to evalute & treat vital organ system(s) failure or risk of failure.
[2017-03-08 06:03] LABS: ARTERIAL BLD GAS O2 SATURATION 97.1 % (90-98.9); ARTERIAL BLOOD GAS BASE EXCESS -2.6 meq/l (-2-2); ARTERIAL BLOOD GAS HCO3 21.7 meq/L (22-26); ARTERIAL BLOOD GAS PO2 93.1 mmHg (68-100); ARTERIAL BLOOD GAS pH 7.37 (7.35-7.45)
[2017-03-08 06:05] LABS: ART PUNCT SITE RIGHT BRACHIAL; LPM/O2% 80; MECH. VENT. BIPAP; PT. ON O2? YES; TYPE OF O2 bipap
[2017-03-08 06:06] LABS: VENT RATE 20; VT/PRESS IPAP 16/ EPAP 6
[2017-03-08 06:08] LABS: METHEMOGLOBIN 0.6 % (0.4-1.5)
[2017-03-08] MEDS ORDERED: SODIUM CHLORIDE 1,000 ML IV SCH (07:30)
[2017-03-08] MEDS: ALBUTEROL SO4 2.5/IPRATROPIUM 0.5 INH SOL 3 ML VIAL.NEB. NEB SCH ×3 (07:34→19:07)
--- NOTE | 2017-03-08 07:52 | PN ---
Teaching Attending Note Name of Resident: Rosa Wheatley ATTENDING PHYSICIAN STATEMENT I saw and evaluated the patient. I reviewed the resident's note and discussed the case with the resident. I agree with the resident's findings and plan as documented. SUBJECTIVE: Patient unable to give history due to acute respiratory distress. On bipap, history taken from as documented in H&P OBJECTIVE:Responsive to verbal stimuli, alert and on bipap. B/l scatter rhonchi , distant heart sounds, abdomen soft non distended, NT, BS+, Extremities no edema. ASSESSMENT AND PLAN: Sepsis secondary to CAP, with acute respiratory failure, BIPAP prn and oxygen 3L, trend lactic acid, gentle IVF hydration monitor for fluid overload. Troponin most likely demand ischemia, trend and cardiac monitoring. ID consult Dr Farley. Advance directives: DNR/DNI.
[2017-03-08] MEDS: TAMSULOSIN HCL 0.4 MG CAP.ER.24H (FP) PO SCH (09:00)
[2017-03-08] MEDS ORDERED: PIPERACILLIN/TAZOB 4.5 GM/100 ML PRE-DOCKED IVPB SCH (09:00)
[2017-03-08 09:10] LABS: URINE APPEARANCE CLOUDY; URINE BILIRUBIN NEGATIVE (NEGATIVE); URINE COLOR YELLOW; URINE GLUCOSE (UA) NEGATIVE (NEGATIVE); URINE KETONE NEGATIVE (NEGATIVE); URINE NITRITE NEGATIVE (NEGATIVE); URINE PROTEIN NEGATIVE (NEGATIVE); URINE UROBILINOGEN NEGATIVE E.U./dl (0.2-1.0)
[2017-03-08 09:14] LABS: URINE BLOOD 2+ (NEGATIVE); URINE LEUK ESTERASE 2+ (NEGATIVE)
[2017-03-08 09:19] LABS: URINE BACTERIA MODERATE /hpf (NONE SEEN); URINE HYALINE CAST 4 /lpf; URINE MUCUS RARE; URINE RBC 12 /hpf (0-3); URINE WBC 52 /hpf (3-5)
[2017-03-08] MEDS ORDERED: HEPARIN NA (PORCINE) 5,000 UNITS/ML 1ML VIAL SQ SCH (10:00)
[2017-03-08] MEDS ORDERED: LOSARTAN POTASSIUM 50 MG TABLET (FP) PO SCH (10:00)
--- NOTE | 2017-03-08 10:29 | HOSP ---
Subjective - Review of Symptoms Events since last encounter: Patient is on Bipap, Short of breath .No fever or chills. Temperature 97.8 F 03/08/17 06:01 Pulse Rate 70 03/08/17 10:00 Respiratory Rate 22 03/08/17 10:00 Blood Pressure 140/80 03/08/17 10:00 O2 Sat by Pulse Oximetry (%) 100 03/08/17 10:00 GENERAL: Awake, alert, on BiAP, not able to talk; when i asked if he was in pain he nodded yes HEAD: Normal with no signs of trauma. EYES: Pupils equal, round and reactive to light, extraocular movements intact, sclera anicteric, conjunctiva clear. LUNGS: scattered rhonchi, Decreased BS BL, on Bipap. HEART:distant heart sound Regular rate and rhythm, normal S1 and S2 ABDOMEN: Soft, nontender, obese, normoactive bowel sounds, no guarding, no rebound, no masses. EXTREMITIES: 2+ pulses, warm, well-perfused. No cyanosis. No clubbing. No peripheral edema. NEUROLOGICAL: on bipap; non verbal SKIN: Warm, dry, normal turgor, no rashes or lesions noted, normal capillary refill. CBCD WBC 18.7 K/mm3 (4.0-10.0) H D 03/08/17 03:10 RBC 4.41 M/mm3 (4.00-5.60) 03/08/17 03:10 Hgb 13.1 GM/dL (11.7-16.9) 03/08/17 03:10 Hct 40.4 % (35.4-49) 03/08/17 03:10 MCV 91.6 fl (80-96) 03/08/17 03:10 MCHC 32.6 g/dl (32.0-35.9) 03/08/17 03:10 RDW 16.2 % (11.9-15.9) H 03/08/17 03:10 Plt Count 222 K/MM3 (134-434) D 03/08/17 03:10 MPV 8.5 fl (7.5-11.1) D 03/08/17 03:10 CMP Sodium 141 mmol/L (136-145) 03/08/17 03:10 Potassium 4.9 mmol/L (3.5-5.1) 03/08/17 03:10 Chloride 106 mmol/L (98-107) 03/08/17 03:10 Carbon Dioxide 22 mmol/L (21-32) 03/08/17 03:10 Anion Gap 13 (8-16) 03/08/17 03:10 BUN 43 mg/dL (7-18) H D 03/08/17 03:10 Creatinine 1.9 mg/dL (0.7-1.3) H D 03/08/17 03:10 Creat Clearance w eGFR 33.54 (>60) 03/08/17 03:10 Random Glucose 111 mg/dL (74-106) H 03/08/17 03:10 Calcium 8.7 mg/dL (8.5-10.1) 03/08/17 03:10 Total Bilirubin 0.7 mg/dL (0.2-1.0) D 03/08/17 03:10 AST 18 U/L (15-37) 03/08/17 03:10 ALT 18 U/L (12-78) 03/08/17 03:10 Alkaline Phosphatase 60 U/L (45-117) 03/08/17 03:10 Total Protein 6.9 g/dl (6.4-8.2) 03/08/17 03:10 Albumin 3.6 g/dl (3.4-5.0) 03/08/17 03:10 CARDIAC ENZYMES Creatine Kinase 160 IU/L (39-308) D 03/08/17 03:10 Troponin I 0.28 ng/ml (0.00-0.05) H D 03/08/17 03:10 Current Medications Generic Name Dose Route Start Last Admin Trade Name Freq PRN Reason Stop Dose Admin Aclidinium [place] 1 puff 03/08/17 10:00 Tudorza - IH BID [facility] Albuterol/Ipratropium 1 amp 03/08/17 06:00 03/08/17 07:34 Duoneb - NEB 1 amp QIDR CAREY Administration Amlodipine Besylate 5 mg 03/08/17 10:00 Norvasc - PO DAILY [facility] Dipyridamole/Aspirin 1 combo 03/08/17 10:00 Aggrenox - PO BID [facility] Heparin Sodium (Porcine) 5,000 unit 03/08/17 22:00 Heparin - SQ BID [facility] Vancomycin HCl 1,250 mg/ 250 mls @ 250 mls/hr 03/09/17 05:31 Dextrose IVPB 03/09/17 06:30 ONCE ONE Protocol Azithromycin 500 mg/ Dextrose 250 mls @ 250 mls/hr 03/08/17 10:30 IVPB DAILY [facility] Ceftriaxone Sodium 1 gm/ 50 mls @ 100 mls/hr 03/08/17 10:30 Dextrose IVPB DAILY [facility] Levetiracetam 750 mg 03/08/17 10:00 Keppra - PO BID [facility] Methylprednisolone Sodium Succinate 40 mg 03/08/17 10:15 Solu-Medrol - IVPB Q8H [facility] Montelukast Sodium 10 mg 03/08/17 22:00 Singulair - PO HS [facility] Tamsulosin HCl 0.4 mg 03/08/17 08:30 Flomax - PO DAILY@0830 [facility] Home Medications Medication Instructions Recorded Albuterol 0.083% Nebulizer Lela 1 neb NEB BID 09/30/14 [Ventolin 0.083% Nebulizer Soln -] Amlodipine Besylate [Norvasc -] 5 mg PO DAILY 09/30/14 Aspirin/Dipyridamole [Aggrenox -] 1 combo PO BID 09/30/14 Cholecalciferol (Vitamin D3) 1,000 unit PO DAILY 09/30/14 [Vitamin D3] Cholestyramine/Sucrose 4 gm PO BID PRN 09/30/14 [Cholestyramine Packet] Fluticasone Propionate [Flovent 110 mg IH BID 09/30/14 Hfa] Levetiracetam [Keppra -] 750 mg PO BID 09/30/14 Lipase/Protease/Amylase [Pancrease 4 each PO DAILY 09/30/14 EC Capsule] Loratadine 10 mg PO DAILY 09/30/14 Losartan Potassium 50 mg PO DAILY 09/30/14 Montelukast Na [Singulair -] 10 mg PO HS 09/30/14 Simvastatin [Zocor] 20 mg PO HS 09/30/14 Solifenacin Succinate [Vesicare] 10 mg PO DAILY 09/30/14 Tamsulosin HCl [Flomax -] 0.4 mg PO DAILY 09/30/[address] [place] [Spiriva] 1 inh PO DAILY 09/30/14 Lipase/Protease/Amylase 2 each PO BIDWM #60 cap 10/06/14 [Pancrelipase 5,000 Dr Capsule -] Oxymetazoline 0.05% Nasal Soln 2 spray NS BID PRN #7 spraybtl 10/06/14 [Afrin -] Ranitidine [Zantac -] 150 mg PO BID #30 tablet 10/06/14 Sulfamethoxazole/Trimethoprim 1 tab PO BID #14 tablet 01/08/17 [Bactrim DS -] Tramadol HCl 50 mg PO Q6H #20 tablet MDD 200mg 01/08/17 CXR showing RLL infiltrate A/P: 89 year old male with significant PMHx of COPD, CHF, CAD, COPD, CVA, brought to the emergency room by EMS due to shortness of breath, found to be in acute respiratory failure and hypotensive. Admitted for septic secondary to pneumonia. #Acute sepsis due to community acquired pneumonia with acute hypoxic respiratory failure: ID consulted ; patient is on Bipap, elevated lactic acid 4.8; on IV vancomycin, Rocephin, Zithromax. #Acute COPD exacerbation: dependent on home O2 (3L [place]): albuterol/ipratropium ; singular , ;turdoza ; On solumedrol 40mg IV daily #elevated troponin most likely due to sepsis; will trend second ;admitted on tele; ecg no st/t wave abnormalities #acute kidney injury ;BUN 43/Cr 1.9, trend creatinine #hypertension: On norvasc 5mg po daily continue. Hold losartan due to YEISON; bp stable #hx of congestive heart failure VTE: heparin sq Physical Examination Vital Signs: Vital Signs Temperature 97.8 F 03/08/17 06:01 Pulse Rate 70 03/08/17 10:00 Respiratory Rate 22 03/08/17 10:00 Blood Pressure 140/80 03/08/17 10:00 O2 Sat by Pulse Oximetry (%) 100 03/08/17 10:00
[2017-03-08] MEDS ORDERED: CEFTRIAXONE 50 ML IVPB SCH (10:30)
[2017-03-08] MEDS: ASPIRIN/DIPYRIDAMOLE 25 MG/200 MG CAPSULE (FP) PO SCH ×2 (11:00→23:27)
[2017-03-08] MEDS: levETIRAcetam 250 MG TABLET (FP) PO SCH ×2 (11:00→23:27)
[2017-03-08] MEDS: methylPREDNISolone NA SUCC 40 MG/1 ML VIAL IVPB SCH ×2 (11:00→19:39)
[2017-03-08] MEDS: amLODIPine BESYLATE 5 MG TABLET (FP) PO SCH (11:00)
[2017-03-08] MEDS ORDERED: AZITHROMYCIN IVPB 250 ML IVPB ONE (11:03)
[2017-03-08] MEDS ORDERED: CEFTRIAXONE 50 ML ONE (11:03)
[2017-03-08] MEDS: AZITHROMYCIN IVPB 250 ML IVPB SCH (11:34)
[2017-03-08] MEDS: ACLIDINIUM BROMIDE 400 MCG/INH AERO.POWD IH SCH ×2 (11:44→23:28)
[2017-03-08] MEDS ORDERED: methylPREDNISolone NA SUCC 40 MG/1 ML VIAL IVPB SCH (12:00)
--- NOTE | 2017-03-08 13:36 | CON.NEP ---
Consult Consult Specialty:: Nephrology Referred by:: Dr Jin Reason for Consultation:: YEISON - History of Present Illness Chief Complaint: Dyspnea History of Present Illness: This is an 89 year old male with significant PMHx of COPD, CHF, CAD with Stent , COPD, and CVA brought to the emergency room by EMS for worsening shortness of breath. Patient on continuous oxygen at 3L/min at home. Pt is a poor historian so information obtained from the chart. He denies any CP or palpitations. Had vomiting prior to admission as per family member. He denies any prior kidney issues . As per earlier documentation and per patient was doing well, went to graduation constitution party then had some vomiting. he even had an episode of unresponsiveness and noted to be hypotensive by EMS . Pt now on BiPAP Recently treated for a UTI CXR now suggesting RLL infiltrate. 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: CVA, Dementia, TIA Cardio/Vascular: Yes: CAD, HTN Pulmonary: Yes: COPD Renal/: Yes: Cancer (prostate) - Alcohol/Substance Use Hx Alcohol Use: No - Smoking History Smoking history: Former smoker Have you smoked in the past 12 months: No Aproximately how many cigarettes per day: 0 If you are a former smoker, when did you quit?: over 20 years go - Social History Usual Living Arrangement: With Spouse ADL: Family Assistance History of Recent Travel: No Home Medications - Allergies Allergies/Adverse Reactions: Allergies Allergy/AdvReac Type Severity Reaction Status Date / Time Anesthetics - Angle Type- Allergy Unknown Verified 03/08/17 03:04 Parabens [Anesthetics - Angle Type] latex Allergy Verified 03/08/17 03:04 - Home Medications Home Medications: Ambulatory Orders Albuterol 0.083% Nebulizer Lela [Ventolin 0.083% Nebulizer Soln -] 1 neb NEB BID 09/30/14 Amlodipine Besylate [Norvasc -] 5 mg PO DAILY 09/30/14 Aspirin/Dipyridamole [Aggrenox -] 1 combo PO BID 09/30/14 Cholecalciferol (Vitamin D3) [Vitamin D3] 1,000 unit PO DAILY 09/30/14 Cholestyramine/Sucrose [Cholestyramine Packet] 4 gm PO BID PRN 09/30/14 Fluticasone Propionate [Flovent Hfa] 110 mg IH BID 09/30/14 Levetiracetam [Keppra -] 750 mg PO BID 09/30/14 Lipase/Protease/Amylase [Pancrease EC Capsule] 4 each PO DAILY 09/30/14 Loratadine 10 mg PO DAILY 09/30/14 Losartan Potassium 50 mg PO DAILY 09/30/14 Montelukast Na [Singulair -] 10 mg PO HS 09/30/14 Simvastatin [Zocor] 20 mg PO HS 09/30/14 Solifenacin Succinate [Vesicare] 10 mg PO DAILY 09/30/14 Tamsulosin HCl [Flomax -] 0.4 mg PO DAILY 09/30/14 Tiotropium [place] [Spiriva] 1 inh PO DAILY 09/30/14 Lipase/Protease/Amylase [Pancrelipase 5,000 Dr Capsule -] 2 each PO BIDWM #60 cap 10/06/14 Oxymetazoline 0.05% Nasal Soln [Afrin -] 2 spray NS BID PRN #7 spraybtl Ranitidine [Zantac -] 150 mg PO BID #30 tablet 10/06/14 Sulfamethoxazole/Trimethoprim [Bactrim DS -] 1 tab PO BID #14 tablet 01/08/17 Tramadol HCl 50 mg PO Q6H #20 tablet MDD 200mg 01/08/17 Review of Systems Unable to obtain ROS, reason: Pt is confused Nephrology Consult - Height Height: 5 ft 7 in - Weight Weight: 200 lb - BMI Body Mass Index (BMI): 31.3 - Lab Results CBC,BMP: Laboratory Tests 03/08/17 03/08/17 03:10 08:00 WBC 18.7 H D RBC 4.41 Hgb 13.1 Hct 40.4 MCV 91.6 MCHC 32.6 RDW 16.2 H Plt Count 222 D Neutrophils % 94.0 H Urine Nitrite Negative Hyaline Casts 4 Laboratory Tests 03/08/17 05:50 ABG pH 7.37 ABG pCO2 at Pt Temp 38.1 ABG pO2 at Pt Temp 93.1 ABG HCO3 21.7 L ABG O2 Sat (Measured) 97.1 Laboratory Tests 03/08/17 03/08/17 03/08/17 03:10 05:25 07:12 Sodium 141 Potassium 4.9 Chloride 106 Carbon Dioxide 22 Anion Gap 13 BUN 43 H D Creatinine 1.9 H D Creat Clearance w eGFR 33.54 Random Glucose 111 H Lactic Acid 4.8 H* 4.3 H* Calcium 8.7 Total Bilirubin 0.7 D AST 18 ALT 18 Alkaline Phosphatase 60 Creatine Kinase 160 D Creatine Kinase Index 1.2 CK-MB (CK-2) 1.994 Troponin I 0.28 H D B-Natriuretic Peptide 1591.26 H Total Protein 6.9 Albumin 3.6 03/08/17 11:39 Sodium Potassium Chloride Carbon Dioxide Anion Gap BUN Creatinine Creat Clearance w eGFR Random Glucose Lactic Acid Calcium Total Bilirubin AST ALT Alkaline Phosphatase Creatine Kinase Creatine Kinase Index CK-MB (CK-2) Troponin I 0.95 H* D B-Natriuretic Peptide Total Protein Albumin U/A: Laboratory Tests 03/08/17 08:00 Urine Color Yellow Urine Appearance Cloudy Urine pH 5.0 Ur Specific [place] 1.020 Urine Protein Negative Urine Glucose (UA) Negative Urine Ketones Negative Urine Blood 2+ H Urine Bilirubin Negative Urine Urobilinogen Negative Ur Leukocyte Esterase 2+ H Urine RBC 12 Urine WBC 52 Ur Epithelial Cells Rare Urine Bacteria Moderate Urine Mucus Rare Anion Gap: Anion Gap Anion Gap 13 (8-16) 03/08/17 03:10 - Imaging Chest X-ray: Report Reviewed, Image Reviewed EKG: Other (NSR with RBBB) - Physical Examination Vital Signs: Vital Signs Temperature 99.1 F 03/08/17 11:44 Pulse Rate 73 03/08/17 12:08 Respiratory Rate 23 03/08/17 12:08 Blood Pressure 145/83 03/08/17 12:08 O2 Sat by Pulse Oximetry (%) 100 03/08/17 12:32 Constitutional: Yes: Calm, Other (BiPAP in place) Neck: Yes: Supple, Other (OBESE NECK and unable to appreciate a JVD) Cardiovascular: Yes: S1, S2. No: JVD Respiratory: Yes: Diminished, On BiPap, Other (Decreased BS Bilaterally) Gastrointestinal: Yes: Soft. No: Tenderness, Rebound Edema: No Neurological: Yes: Other (Alert and coooperative but non oriented to year or name of the hospital) Assessment/Plan Impression YEISON from sepsis and prior use of an ARB and Bactrim- R/O ATN since pt had documented hypotension Sepsis from pneumonia +/- Urinary tract infection CHF by history though clinically compensated - Note BNP elevated but difficult to interpret given the renal disease COPD in ex Smoker exacerbated by a pneumonia ? aspiration at time pt became unresponsive CAD with stent and increased TNI from demand ischemia R/O CAD H/O U Bladder polyp and possible BPH based on pre admission meds S/P CVA on Keppra Plan Alan Culture Empiric Abx Cautious IVF now that boluses given since pt has an enlarged heart on CXR and h/ o CHF - 1/2 NS 75 cc/hr Renal and U Bladder US Urine for Spot Na and Cr BiPAP Rpt labs in am Cardiology , Pulmonary and ID consults pending DNR/DNI in effect Awaiting admission to telemetry Discussed with the hospitalist Thank You Dr Hinson
[2017-03-08] MEDS ORDERED: SODIUM CHLORIDE 0.45% 1,000 ML IV SCH (14:00)
--- NOTE | 2017-03-08 14:35 | CONSULT ---
Consult Consult Specialty:: infectious Reason for Consultation:: ams,asp pna - History of Present Illness Chief Complaint: ams History of Present Illness: 89 year old male with significant PMHx of COPD, CHF, CAD with Stent , COPD, and CVA brought to the emergency room by EMS for worsening shortness of breath. Patient on continuous oxygen at 3L/min at home. Pt is on venti mask and also does not remember exact sequence of events so most of the history obtained from the charts As per earlier documentation patient was doing well, went to graduation green party then had some vomiting. 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: CVA, Dementia, TIA Cardio/Vascular: Yes: CAD, HTN Pulmonary: Yes: COPD Renal/: Yes: Cancer (prostate) - Alcohol/Substance Use Hx Alcohol Use: No - Smoking History Smoking history: Former smoker Have you smoked in the past 12 months: No Aproximately how many cigarettes per day: 0 If you are a former smoker, when did you quit?: over 20 years go - Social History Usual Living Arrangement: With Spouse ADL: Family Assistance History of Recent Travel: No Home Medications - Allergies Allergies/Adverse Reactions: Allergies Allergy/AdvReac Type Severity Reaction Status Date / Time Anesthetics - Angle Type- Allergy Unknown Verified 03/08/17 03:04 Parabens [Anesthetics - Angle Type] latex Allergy Verified 03/08/17 03:04 - Home Medications Home Medications: Ambulatory Orders Albuterol 0.083% Nebulizer Lela [Ventolin 0.083% Nebulizer Soln -] 1 neb NEB BID 09/30/14 Amlodipine Besylate [Norvasc -] 5 mg PO DAILY 09/30/14 Aspirin/Dipyridamole [Aggrenox -] 1 combo PO BID 09/30/14 Cholecalciferol (Vitamin D3) [Vitamin D3] 1,000 unit PO DAILY 09/30/14 Cholestyramine/Sucrose [Cholestyramine Packet] 4 gm PO BID PRN 09/30/14 Fluticasone Propionate [Flovent Hfa] 110 mg IH BID 09/30/14 Levetiracetam [Keppra -] 750 mg PO BID 09/30/14 Lipase/Protease/Amylase [Pancrease EC Capsule] 4 each PO DAILY 09/30/14 Loratadine 10 mg PO DAILY 09/30/14 Losartan Potassium 50 mg PO DAILY 09/30/14 Montelukast Na [Singulair -] 10 mg PO HS 09/30/14 Simvastatin [Zocor] 20 mg PO HS 09/30/14 Solifenacin Succinate [Vesicare] 10 mg PO DAILY 09/30/14 Tamsulosin HCl [Flomax -] 0.4 mg PO DAILY 09/30/14 Tiotropium [place] [Spiriva] 1 inh PO DAILY 09/30/14 Lipase/Protease/Amylase [Pancrelipase 5,000 Dr Capsule -] 2 each PO BIDWM #60 cap 10/06/14 Oxymetazoline 0.05% Nasal Soln [Afrin -] 2 spray NS BID PRN #7 spraybtl Ranitidine [Zantac -] 150 mg PO BID #30 tablet 10/06/14 Sulfamethoxazole/Trimethoprim [Bactrim DS -] 1 tab PO BID #14 tablet 01/08/17 Tramadol HCl 50 mg PO Q6H #20 tablet MDD 200mg 01/08/17 Review of Systems Unable to obtain ROS, reason: unable to obtain Physical Exam Vital Signs: Vital Signs Temperature 99.1 F 03/08/17 11:44 Pulse Rate 73 03/08/17 12:08 Respiratory Rate 23 03/08/17 12:08 Blood Pressure 145/83 03/08/17 12:08 O2 Sat by Pulse Oximetry (%) 100 03/08/17 12:32 Constitutional: Yes: Moderate Distress, Obese Eyes: Yes: Conjunctiva Clear HENT: Yes: Atraumatic Neck: Yes: Supple, Trachea Midline Cardiovascular: Yes: Tachycardia, S1, S2 Respiratory: Yes: On BiPap, Poor Air Entry, Rhonchi Gastrointestinal: Yes: Normal Bowel Sounds, Soft, Tenderness (left lower quadrant) Musculoskeletal: Yes: WNL Extremities: Yes: WNL Neurological: Yes: Alert, Other Psychiatric: Yes: Alert, Other Imaging - Results Chest X-ray: Report Reviewed, Image Reviewed Assessment/Plan Problem List - Problems (1) COPD (chronic obstructive pulmonary disease) Code(s): J44.9 - CHRONIC OBSTRUCTIVE PULMONARY DISEASE, UNSPECIFIED (2) Elevated troponin Code(s): R74.8 - ABNORMAL LEVELS OF OTHER SERUM ENZYMES (3) Pneumonia Code(s): J18.9 - PNEUMONIA, UNSPECIFIED ORGANISM (4) Acute respiratory failure Code(s): J96.00 - ACUTE RESPIRATORY FAILURE, UNSP W HYPOXIA OR HYPERCAPNIA after looking at the history patient probably ahs asp pna also patient c/o of left lower quadrant pain plan abx ct scan of abd pul going to follow resp support rest as per primary swallow studies
--- NOTE | 2017-03-08 15:16 | CON.PULM ---
Consult Consult Specialty:: PULM/CCM Referred by:: JOSHUA Reason for Consultation:: Acute Respiratory Failure - History of Present Illness Chief Complaint: SOB History of Present Illness: 89 M, COPD, CHF, CAD, COPD, and CVA. Admitted via the ER due to progressive shortness of breath. Patient is maintained on 3L NC O2. Apparently he was out with family and developed a change a mental status and then vomited on himself. Patient was placed on NIPPV due to severe acute respiratory distress. He is lethargic but arousable. He is a DNR/DNI. No travel history or sick contacts. 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, TIA Cardio/Vascular: Yes: CAD, HTN Pulmonary: Yes: COPD Renal/: Yes: Cancer (prostate) - Alcohol/Substance Use Hx Alcohol Use: No - Smoking History Smoking history: Former smoker Have you smoked in the past 12 months: No Aproximately how many cigarettes per day: 0 If you are a former smoker, when did you quit?: over 20 years go - Social History Usual Living Arrangement: With Spouse ADL: Family Assistance History of Recent Travel: No Home Medications - Allergies Allergies/Adverse Reactions: Allergies Allergy/AdvReac Type Severity Reaction Status Date / Time Anesthetics - Angle Type- Allergy Unknown Verified 03/08/17 03:04 Parabens [Anesthetics - Angle Type] latex Allergy Verified 03/08/17 03:04 - Home Medications Home Medications: Ambulatory Orders Albuterol 0.083% Nebulizer Lela [Ventolin 0.083% Nebulizer Soln -] 1 neb NEB BID 09/30/14 Amlodipine Besylate [Norvasc -] 5 mg PO DAILY 09/30/14 Aspirin/Dipyridamole [Aggrenox -] 1 combo PO BID 09/30/14 Cholecalciferol (Vitamin D3) [Vitamin D3] 1,000 unit PO DAILY 09/30/14 Cholestyramine/Sucrose [Cholestyramine Packet] 4 gm PO BID PRN 09/30/14 Fluticasone Propionate [Flovent Hfa] 110 mg IH BID 09/30/14 Levetiracetam [Keppra -] 750 mg PO BID 09/30/14 Lipase/Protease/Amylase [Pancrease EC Capsule] 4 each PO DAILY 09/30/14 Loratadine 10 mg PO DAILY 09/30/14 Losartan Potassium 50 mg PO DAILY 09/30/14 Montelukast Na [Singulair -] 10 mg PO HS 09/30/14 Simvastatin [Zocor] 20 mg PO HS 09/30/14 Solifenacin Succinate [Vesicare] 10 mg PO DAILY 09/30/14 Tamsulosin HCl [Flomax -] 0.4 mg PO DAILY 09/30/14 Tiotropium [place] [Spiriva] 1 inh PO DAILY 09/30/14 Lipase/Protease/Amylase [Pancrelipase 5,000 Dr Capsule -] 2 each PO BIDWM #60 cap 10/06/14 Oxymetazoline 0.05% Nasal Soln [Afrin -] 2 spray NS BID PRN #7 spraybtl Ranitidine [Zantac -] 150 mg PO BID #30 tablet 10/06/14 Sulfamethoxazole/Trimethoprim [Bactrim DS -] 1 tab PO BID #14 tablet 01/08/17 Tramadol HCl 50 mg PO Q6H #20 tablet MDD 200mg 01/08/17 Review of Systems Unable to obtain ROS, reason: not able to provide Physical Exam Vital Sings: Vital Signs Temperature 99.1 F 03/08/17 11:44 Pulse Rate 73 03/08/17 12:08 Respiratory Rate 23 03/08/17 12:08 Blood Pressure 145/83 03/08/17 12:08 O2 Sat by Pulse Oximetry (%) 100 03/08/17 14:38 Constitutional: Yes: Moderate Distress Eyes: Yes: Conjunctiva Clear HENT: Yes: Atraumatic, Normocephalic Neck: Yes: Supple, Trachea Midline Cardiovascular: Yes: Tachycardia Respiratory: Yes: Accessory Muscle Use, Diminished, On BiPap, Rhonchi, SOB, Tachypnea. No: Stridor, Wheezes ...Inspection: Yes: WNL ...Clubbing: No Gastrointestinal: Yes: Normal Bowel Sounds, Soft Musculoskeletal: Yes: WNL Extremities: Yes: WNL Edema: No Peripheral Pulses WNL: Yes Integumentary: Yes: WNL Neurological: Yes: Confusion, Lethargy Labs: ABG Results ABG pH 7.37 (7.35-7.45) 03/08/17 05:50 ABG pCO2 at Pt Temp 38.1 mmHg (35-45) 03/08/17 05:50 ABG pO2 at Pt Temp 93.1 mmHg (68-100) 03/08/17 05:50 ABG HCO3 21.7 meq/L (22-26) L 03/08/17 05:50 ABG O2 Sat (Measured) 97.1 % (90-98.9) 03/08/17 05:50 ABG O2 Content 17.1 % vol (15-22) 03/08/17 05:50 ABG Base Excess -2.6 meq/l (-2-2) L 03/08/17 05:50 Imaging - Results Chest X-ray: Report Reviewed, Image Reviewed Problem List - Problems (1) COPD (chronic obstructive pulmonary disease) Code(s): J44.9 - CHRONIC OBSTRUCTIVE PULMONARY DISEASE, UNSPECIFIED (2) Elevated troponin Code(s): R74.8 - ABNORMAL LEVELS OF OTHER SERUM ENZYMES (3) Pneumonia Code(s): J18.9 - PNEUMONIA, UNSPECIFIED ORGANISM (4) Acute respiratory failure Code(s): J96.00 - ACUTE RESPIRATORY FAILURE, UNSP W HYPOXIA OR HYPERCAPNIA Assessment/Plan Agree with current NIPPV settings Aspiration precautions IV Medrol BD TX Check cultures Agree with ABX coverage Patient is DNR/DNI 4S/4W monitoring Will follow Thank you. Dr Falk
[2017-03-08] MEDS ORDERED: methylPREDNISolone NA SUCC 40 MG/1 ML VIAL ONE (19:32)
[2017-03-08] MEDS: PIPERACILLIN/TAZOB 2.25 GM 50 ML IVPB SCH (19:39)
[2017-03-08] MEDS: MONTELUKAST NA 10 MG TABLET PO SCH (23:27)
[2017-03-08] MEDS: HEPARIN NA (PORCINE) 5,000 UNITS/ML 1ML VIAL SQ SCH (23:27)
[2017-03-09] MEDS: methylPREDNISolone NA SUCC 40 MG/1 ML VIAL IVPB SCH ×3 (03:40→17:17)
[2017-03-09] MEDS: PIPERACILLIN/TAZOB 2.25 GM 50 ML IVPB SCH ×3 (03:40→17:16)
[2017-03-09] MEDS ORDERED: VANCOMYCIN 1,250 MG in DEXTROSE 5%-WATER - 250 ML IVPB ONE (05:31)
[2017-03-09] MEDS: ALBUTEROL SO4 2.5/IPRATROPIUM 0.5 INH SOL 3 ML VIAL.NEB. NEB SCH ×5 (06:40→23:27)
[2017-03-09 08:19] LABS: MCHC 32.6 g/dl (32.0-35.9); MEAN CELL VOLUME 92.2 fl (80-96); MEAN PLT VOLUME 8.5 fl (7.5-11.1); RDW 16.3 % (11.9-15.9); WHITE BLOOD COUNT 21.2 K/mm3 (4.0-10.0)
[2017-03-09 08:38] LABS: ALBUMIN 2.8 g/dl (3.4-5.0); ALK PHOS 49 U/L (45-117); ANION GAP 11 (8-16); BILIRUBIN,TOTAL 0.5 mg/dL (0.2-1.0); CALCIUM 7.5 mg/dL (8.5-10.1); CO2 24 mmol/L (21-32); CREATININE 1.4 mg/dL (0.7-1.3); GLUCOSE,RANDOM 141 mg/dL (74-106); SGOT/AST 61 U/L (15-37); SGPT/ALT 24 U/L (12-78); TOT PROT 5.9 g/dl (6.4-8.2)
[2017-03-09 09:25] LABS: PLATELET COUNT 117 K/MM3 (134-434); PLATELET ESTIMATE DECREASED (NORMAL)
[2017-03-09] MEDS: ASPIRIN/DIPYRIDAMOLE 25 MG/200 MG CAPSULE (FP) PO SCH ×2 (10:03→21:56)
[2017-03-09] MEDS: HEPARIN NA (PORCINE) 5,000 UNITS/ML 1ML VIAL SQ SCH ×2 (10:03→21:57)
[2017-03-09] MEDS: TAMSULOSIN HCL 0.4 MG CAP.ER.24H (FP) PO SCH (10:03)
[2017-03-09] MEDS: levETIRAcetam 250 MG TABLET (FP) PO SCH ×2 (10:03→21:56)
[2017-03-09] MEDS: AZITHROMYCIN IVPB 250 ML IVPB SCH (10:04)
[2017-03-09] MEDS: amLODIPine BESYLATE 5 MG TABLET (FP) PO SCH (10:04)
[2017-03-09] MEDS ORDERED: PT OWN MED DRAWER 7, Y5N ONE (10:06)
--- NOTE | 2017-03-09 10:54 | PN ---
Progress Note, Physician History of Present Illness: Pt is in less respiratory distress Off BIPAP at this time He is oriebted to the name of the hospital but ot the year NS at 75 cc/hr FeNA < 1% Blood and Urine Cultures negative to date Official report of the renal sonogram pending however no hydronephrosis noted and thinning of the cortices present based on my review of the study DNR/DNI in effect - Current Medication List Current Medications: Active Medications Aclidinium [place] (Tudorza -) 1 puff IH BID [facility] Last Admin: 03/08/17 23:28 Dose: Not Given Albuterol/Ipratropium (Duoneb -) 1 amp NEB QIDR [facility] Last Admin: 03/09/17 06:40 Dose: 1 amp Amlodipine Besylate (Norvasc -) 5 mg PO DAILY [facility] Last Admin: 03/09/17 10:04 Dose: 5 mg Dipyridamole/Aspirin (Aggrenox -) 1 combo PO BID [facility] Last Admin: 03/09/17 10:03 Dose: 1 combo Heparin Sodium (Porcine) (Heparin -) 5,000 unit SQ BID [facility] Last Admin: 03/09/17 10:03 Dose: 5,000 unit Azithromycin (Zithromax 500mg Ivpb (Pre-Docked)) 250 mls @ 250 mls/hr IVPB DAILY [facility] Last Admin: 03/09/17 10:04 Dose: 250 mls/hr Sodium Chloride (1/2 Normal Saline) 1,000 mls @ 75 mls/hr IV ASDIR [facility] Last Admin: 03/08/17 14:10 Dose: 75 mls/hr Piperacillin Sod/Tazobactam Sod (Zosyn 2.25gm Ivpb (Pre-Docked)) 50 mls @ 100 mls/hr IVPB Q8H-IV [facility] PRN Reason: Protocol Last Admin: 03/09/17 10:04 Dose: 100 mls/hr Levetiracetam (Keppra -) 750 mg PO BID [facility] Last Admin: 03/09/17 10:03 Dose: 750 mg Methylprednisolone Sodium Succinate (Solu-Medrol -) 40 mg IVPB Q8H [facility] Last Admin: 03/09/17 10:03 Dose: 40 mg Montelukast Sodium (Singulair -) 10 mg PO HS [facility] Last Admin: 03/08/17 23:27 Dose: 10 mg Tamsulosin HCl (Flomax -) 0.4 mg PO DAILY@0830 [facility] Last Admin: 03/09/17 10:03 Dose: 0.4 mg - Objective Vital Signs: Vital Signs Temperature 97.5 F L 03/09/17 08:00 Pulse Rate 79 03/09/17 08:00 Respiratory Rate 20 03/09/17 08:00 Blood Pressure 141/61 03/09/17 08:00 O2 Sat by Pulse Oximetry (%) 96 03/08/17 22:40 Neck: Yes: Other (Obese and difficult to appreciate the presence or absence of JVD) Cardiovascular: Yes: S1, S2 Respiratory: Yes: Rhonchi Gastrointestinal: Yes: Soft. 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 aspiration since pt had a period of unresponsiveness CAD with stent and increased TNI from demand ischemia R/O CAD H/O U Bladder polyp and possible BPH based on pre admission meds S/P CVA on Keppra Anemia with thrombocytopenia Plan Begin to reduce IVF since pt now eating Renal and U Bladder US- official report pending BiPAP prn Rpt labs in am DNR/DNI in effect Dr Hinson
[2017-03-09] MEDS: ACLIDINIUM BROMIDE 400 MCG/INH AERO.POWD IH SCH (11:54)
[2017-03-09] MEDS: SODIUM CHLORIDE 0.45% 1,000 ML IV SCH (12:59)
--- NOTE | 2017-03-09 14:58 | CON.CARD ---
Consult Consult Specialty:: cardiology Reason for Consultation:: bradycardia - History of Present Illness Chief Complaint: Pt A&O; occasional sharp stabbing chest pain; + dyspnea on mild exertion History of Present Illness: The patient is a 89 year old male, accompanied by , with a significant past medical history of CHF, COPD, CVA/TIA, hypertension, PVD, prostate cancer, cardiac stents, BIBA to the emergency department today for further evaluation of sudden worsening shortness of breath since. As per EMS the patient was non verbal but was responsive. In the ED the patients confirmed his living will to be DNR and DNI. EMS administered 1 duoneb en route to the emergency department. PCP: Dr. 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 Cardio/Vascular: Yes: CAD, HTN Pulmonary: Yes: COPD Renal/: Yes: Cancer (prostate) - Past Surgical History Past Surgical History: Yes: Carotid Endarterectomy (carotid "stent" about 2 years go), Stent (carotid; denies cardiac stent) - Alcohol/Substance Use Hx Alcohol Use: No - Smoking History Smoking history: Former smoker Have you smoked in the past 12 months: No Aproximately how many cigarettes per day: 0 If you are a former smoker, when did you quit?: over 20 years go - Social History Usual Living Arrangement: With Spouse ADL: Family Assistance History of Recent Travel: No Home Medications - Allergies Allergies/Adverse Reactions: Allergies Allergy/AdvReac Type Severity Reaction Status Date / Time Anesthetics - Angle Type- Allergy Unknown Verified 03/08/17 03:04 Parabens [Anesthetics - Angle Type] latex Allergy Verified 03/08/17 03:04 - Home Medications Home Medications: Ambulatory Orders Albuterol 0.083% Nebulizer Lela [Ventolin 0.083% Nebulizer Soln -] 1 neb NEB BID 09/30/14 Amlodipine Besylate [Norvasc -] 5 mg PO DAILY 09/30/14 Aspirin/Dipyridamole [Aggrenox -] 1 combo PO BID 09/30/14 Cholecalciferol (Vitamin D3) [Vitamin D3] 1,000 unit PO DAILY 09/30/14 Cholestyramine/Sucrose [Cholestyramine Packet] 4 gm PO BID PRN 09/30/14 Fluticasone Propionate [Flovent Hfa] 110 mg IH BID 09/30/14 Levetiracetam [Keppra -] 750 mg PO BID 09/30/14 Lipase/Protease/Amylase [Pancrease EC Capsule] 4 each PO DAILY 09/30/14 Loratadine 10 mg PO DAILY 09/30/14 Losartan Potassium 50 mg PO DAILY 09/30/14 Montelukast Na [Singulair -] 10 mg PO HS 09/30/14 Simvastatin [Zocor] 20 mg PO HS 09/30/14 Solifenacin Succinate [Vesicare] 10 mg PO DAILY 09/30/14 Tamsulosin HCl [Flomax -] 0.4 mg PO DAILY 09/30/14 Tiotropium [place] [Spiriva] 1 inh PO DAILY 09/30/14 Lipase/Protease/Amylase [Pancrelipase 5,000 Dr Capsule -] 2 each PO BIDWM #60 cap 10/06/14 Oxymetazoline 0.05% Nasal Soln [Afrin -] 2 spray NS BID PRN #7 spraybtl Ranitidine [Zantac -] 150 mg PO BID #30 tablet 10/06/14 Sulfamethoxazole/Trimethoprim [Bactrim DS -] 1 tab PO BID #14 tablet 01/08/17 Tramadol HCl 50 mg PO Q6H #20 tablet MDD 200mg 01/08/17 Family Disease History - Family Disease History Family History: Denies Review of Systems - Review of Systems Constitutional: reports: Weakness Eyes: reports: No Symptoms HENT: reports: No Symptoms Neck: reports: No Symptoms Cardiovascular: reports: Chest Pain, Shortness of Breath Respiratory: reports: Exercise Intolerance, SOB Gastrointestinal: reports: Indigestion Genitourinary: reports: No Symptoms Breasts: reports: No Symptoms Reported Musculoskeletal: reports: Muscle Weakness Integumentary: reports: No Symptoms Neurological: reports: Weakness Psychiatric: reports: Anxiety - Risk Factors Known Risk Factors: Yes: Age, Gender, Hypercholesterolemia, Hypertension, Physical Inactivity, Prior [place] /Emb Stroke, Smoking (quit 20 yrs ago) Vital Signs: Vital Signs Temperature 97.5 F L 03/09/17 08:00 Pulse Rate 80 03/09/17 11:37 Respiratory Rate 20 03/09/17 08:00 Blood Pressure 141/61 03/09/17 08:00 O2 Sat by Pulse Oximetry (%) 95 03/09/17 11:37 Constitutional: Yes: Calm Eyes: Yes: WNL HENT: Yes: WNL Neck: Yes: WNL Respiratory: Yes: Diminished Gastrointestinal: Yes: Soft, Abdomen, Obese Renal/: No: Anuria Cardiovascular: Yes: Regular Rate and Rhythm Heart Sounds: Yes: S1 (split), S2 (normal) Murmur: Yes: Systolic Murmur, Grade 2 Musculoskeletal: Yes: Muscle Weakness Extremities: Yes: WNL Edema: No Peripheral Pulses WNL: No Peripheral Pulses: 1+ Left Doralis Pedis, 1+ Right Dorsalis Pedis Integumentary: Yes: WNL Neurological: Yes: Alert, Oriented, Weakness (mild rightsided weakness) Psychiatric: Yes: WNL - Other Data Labs, Other Data: CBC, BMP 03/09/17 08:11 03/09/17 08:11 INR, PTT INR 0.92 (0.82-1.09) 03/08/17 03:10 Abnormal Lab Results 03/09/17 03/09/17 03/09/17 08:11 08:11 08:25 WBC 21.2 H RBC 3.73 L Hgb 11.2 L D Hct 34.4 L RDW 16.3 H Plt Count 117 L D Neutrophils % 88.0 H Lymphocytes % 1.0 L D BUN 40 H Creatinine 1.4 H D Random Glucose 141 H D Lactic Acid 2.4 H* Calcium 7.5 L AST 61 H D Total Protein 5.9 L Albumin 2.8 L D Ejection Fraction %: LVEF > or = 40 % (normal LVEF 09/2014 ECHO) Imaging - Results Chest X-ray: Image Reviewed (cardiolmegaly; basilar changes) EKG: Image Reviewed (NSR; 1st degree AVBlock) Problem List - Problems (1) COPD (chronic obstructive pulmonary disease) Assessment/Plan: on bronchodilators, O2 per traveling operator. Code(s): J44.9 - CHRONIC OBSTRUCTIVE PULMONARY DISEASE, UNSPECIFIED (2) Elevated troponin Assessment/Plan: Pt denies hx [place]. TNI 0.28-->0.95; normal CKMB. EKG : NSR: 1st degree AVB; no acute ST-T changes. F/u prior cardiac workup, including stress test. (Pt is DNR/DNI). Code(s): R74.8 - ABNORMAL LEVELS OF OTHER SERUM ENZYMES (3) CVA (cerebral vascular accident) Assessment/Plan: f/u prior records. Code(s): I63.9 - CEREBRAL INFARCTION, UNSPECIFIED (4) Carotid artery stenosis Assessment/Plan: pt reports having had ?left carotid artery stent about 2 yrs ago. Aggressive control of lipids; start statin. F/u records ([facility]) of prior cardiac and carotid workup. Code(s): I65.29 - OCCLUSION AND STENOSIS OF UNSPECIFIED CAROTID ARTERY (5) Sleep apnea Assessment/Plan: consider sleep studies Code(s): G47.30 - SLEEP APNEA, UNSPECIFIED
--- NOTE | 2017-03-09 15:27 | PN ---
Progress Note (short form) - Note Progress Note: Patient seen and examined on the Telemetry unit. Awake on 50% VM. Mildly tachypneic at rest, but less so than yesterday. (Required NIPPV). Intake & Output 03/06/17 03/07/17 03/08/17 03/09/17 23:59 23:59 23:59 23:59 Intake Total 525 750 Output Total 1000 1100 Balance -475 -350 Weight 200 lb Last Vital Signs Temp Pulse Resp BP Pulse Ox 98.3 F 78 21 134/59 95 03/09/17 14:40 03/09/17 14:40 03/09/17 14:40 03/09/17 14:40 03/09/17 11:37 Active Medications Aclidinium [place] (Tudorza -) 1 puff IH BID [facility] Last Admin: 03/09/17 11:54 Dose: 1 puff Albuterol/Ipratropium (Duoneb -) 1 amp NEB QIDR [facility] Last Admin: 03/09/17 11:37 Dose: 1 amp Amlodipine Besylate (Norvasc -) 5 mg PO DAILY [facility] Last Admin: 03/09/17 10:04 Dose: 5 mg Dipyridamole/Aspirin (Aggrenox -) 1 combo PO BID [facility] Last Admin: 03/09/17 10:03 Dose: 1 combo Heparin Sodium (Porcine) (Heparin -) 5,000 unit SQ BID [facility] Last Admin: 03/09/17 10:03 Dose: 5,000 unit Azithromycin (Zithromax 500mg Ivpb (Pre-Docked)) 250 mls @ 250 mls/hr IVPB DAILY [facility] Last Admin: 03/09/17 10:04 Dose: 250 mls/hr Piperacillin Sod/Tazobactam Sod (Zosyn 2.25gm Ivpb (Pre-Docked)) 50 mls @ 100 mls/hr IVPB Q8H-IV [facility] PRN Reason: Protocol Last Admin: 03/09/17 10:04 Dose: 100 mls/hr Sodium Chloride (1/2 Normal Saline) 1,000 mls @ 50 mls/hr IV ASDIR [facility] Last Admin: 03/09/17 12:59 Dose: 50 mls/hr Levetiracetam (Keppra -) 750 mg PO BID [facility] Last Admin: 03/09/17 10:03 Dose: 750 mg Methylprednisolone Sodium Succinate (Solu-Medrol -) 40 mg IVPB Q8H [facility] Last Admin: 03/09/17 10:03 Dose: 40 mg Montelukast Sodium (Singulair -) 10 mg PO HS [facility] Last Admin: 03/08/17 23:27 Dose: 10 mg Tamsulosin HCl (Flomax -) 0.4 mg PO DAILY@0830 [facility] Last Admin: 03/09/17 10:03 Dose: 0.4 mg Constitutional: Yes: Moderate Distress Eyes: Yes: Conjunctiva Clear HENT: Yes: Atraumatic, Normocephalic Neck: Yes: Supple, Trachea Midline Cardiovascular: Yes: Tachycardia Respiratory: Yes: Accessory Muscle Use, Diminished, On BiPap, Rhonchi, SOB, Tachypnea. No: Stridor, Wheezes ...Inspection: Yes: WNL ...Clubbing: No Gastrointestinal: Yes: Normal Bowel Sounds, Soft Musculoskeletal: Yes: WNL Extremities: Yes: WNL Edema: No Peripheral Pulses WNL: Yes Integumentary: Yes: WNL Neurological: Yes: Confusion, Lethargy Labs: Laboratory Results - last 24 hr 03/08/17 03/08/17 03/09/17 15:00 15:00 05:35 WBC RBC Hgb Hct MCV MCHC RDW Plt Count MPV Neutrophils % Lymphocytes % Monocytes % Band Neutrophils Platelet Estimate Platelet Comment Sodium 141 Potassium 4.7 Chloride 106 Carbon Dioxide 27 D Anion Gap BUN Creatinine Creat Clearance w eGFR Random Glucose Lactic Acid Calcium Total Bilirubin AST ALT Alkaline Phosphatase Total Protein Albumin Ur Random Sodium 47 Urine Creatinine 132.0 03/09/17 03/09/17 03/09/17 08:11 08:11 08:25 WBC 21.2 H RBC 3.73 L Hgb 11.2 L D Hct 34.4 L MCV 92.2 MCHC 32.6 RDW 16.3 H Plt Count 117 L D MPV 8.5 Neutrophils % 88.0 H Lymphocytes % 1.0 L D Monocytes % 5.0 D Band Neutrophils 6.0 Platelet Estimate Decreased Platelet Comment No clumping noted Sodium 140 Potassium 4.6 Chloride 105 Carbon Dioxide 24 Anion Gap 11 BUN 40 H Creatinine 1.4 H D Creat Clearance w eGFR 47.72 Random Glucose 141 H D Lactic Acid 2.4 H* Calcium 7.5 L Total Bilirubin 0.5 D AST 61 H D ALT 24 D Alkaline Phosphatase 49 Total Protein 5.9 L Albumin 2.8 L D Ur Random Sodium Urine Creatinine Problem List - Problems (1) COPD (chronic obstructive pulmonary disease) Code(s): J44.9 - CHRONIC OBSTRUCTIVE PULMONARY DISEASE, UNSPECIFIED (2) Elevated troponin Code(s): R74.8 - ABNORMAL LEVELS OF OTHER SERUM ENZYMES (3) Pneumonia Code(s): J18.9 - PNEUMONIA, UNSPECIFIED ORGANISM (4) Acute respiratory failure Code(s): J96.00 - ACUTE RESPIRATORY FAILURE, UNSP W HYPOXIA OR HYPERCAPNIA Assessment/Plan 50% VM O2 alternating with NIPPV as needed Aspiration precautions IV Medrol BD TX Follow cultures Agree with ABX coverage DNR/DNI D/C LAMA as the patient is on Dupned and unlikely can effectively use his inhaling device Dr Falk Problem List - Problems (1) COPD (chronic obstructive pulmonary disease) Code(s): J44.9 - CHRONIC OBSTRUCTIVE PULMONARY DISEASE, UNSPECIFIED (2) Elevated troponin Code(s): R74.8 - ABNORMAL LEVELS OF OTHER SERUM ENZYMES (3) Pneumonia Code(s): J18.9 - PNEUMONIA, UNSPECIFIED ORGANISM (4) Acute respiratory failure Code(s): J96.00 - ACUTE RESPIRATORY FAILURE, UNSP W HYPOXIA OR HYPERCAPNIA
[2017-03-09 18:17] LABS: CHOLESTEROL 117 mg/dL (50-200); LDL CHOLESTEROL (ONLY SJRH) 35 mg/dL (5-100)
--- NOTE | 2017-03-09 19:52 | EKG ---
Test Reason : Blood Pressure : / mmHG Vent. Rate : 080 BPM Atrial Rate : 080 BPM P-R Int : 220 ms QRS Dur : 152 ms QT Int : 418 ms P-R-T Axes : 013 -14 020 degrees QTc Int : 482 ms SINUS RHYTHM WITH 1ST DEGREE A-V BLOCK WITH OCCASIONAL PREMATURE VENTRICULAR COMPLEXES RIGHT BUNDLE BRANCH BLOCK ABNORMAL ECG WHEN COMPARED WITH ECG OF 08-MAR-2017 03:05, PREMATURE VENTRICULAR COMPLEXES ARE NOW PRESENT Confirmed by TUCKER SHARMA, DANYELLE ([id number]) on 03/09/2017 7:51:42 PM Referred By: PHIL CESAR Confirmed By:DANYELLE CEBALLOS MD
--- NOTE | 2017-03-09 19:59 | EKG ---
Test Reason : Blood Pressure : / mmHG Vent. Rate : 110 BPM Atrial Rate : 110 BPM P-R Int : 194 ms QRS Dur : 136 ms QT Int : 346 ms P-R-T Axes : -10 -39 042 degrees QTc Int : 468 ms SINUS TACHYCARDIA LEFT AXIS DEVIATION NONSPECIFIC ST ABNORMALITY RIGHT BUNDLE BRANCH BLOCK ABNORMAL ECG WHEN COMPARED WITH ECG OF 08-JAN-2017 14:32, HEART RATE HAS INCREASED Confirmed by DANYELLE CEBALLOS MD ([id number]) on 03/09/2017 7:59:00 PM Referred By: Confirmed By:DANYELLE CEBALLOS MD
--- NOTE | 2017-03-09 20:34 | PN ---
Progress Note (short form) - Note Progress Note: Patient is feeling better. Temperature 98.8 F 03/09/17 17:00 Pulse Rate 74 03/09/17 17:00 Respiratory Rate 18 03/09/17 17:00 Blood Pressure 145/64 03/09/17 17:00 O2 Sat by Pulse Oximetry (%) 95 03/09/17 11:37 GENERAL: Awake, alert, on BiAP, not able to talk; when i asked if he was in pain he nodded yes HEAD: Normal with no signs of trauma. EYES: Pupils equal, round and reactive to light, extraocular movements intact, sclera anicteric, conjunctiva clear. LUNGS: scattered rhonchi, Decreased BS BL, on Bipap. HEART:distant heart sound Regular rate and rhythm, normal S1 and S2 ABDOMEN: Soft, nontender, obese, normoactive bowel sounds, no guarding, no rebound, no masses. EXTREMITIES: 2+ pulses, warm, well-perfused. No cyanosis. No clubbing. No peripheral edema. NEUROLOGICAL: on bipap; non verbal SKIN: Warm, dry, normal turgor, no rashes or lesions noted, normal capillary refill. CBCD WBC 21.2 K/mm3 (4.0-10.0) H 03/09/17 08:11 RBC 3.73 M/mm3 (4.00-5.60) L 03/09/17 08:11 Hgb 11.2 GM/dL (11.7-16.9) L D 03/09/17 08:11 Hct 34.4 % (35.4-49) L 03/09/17 08:11 MCV 92.2 fl (80-96) 03/09/17 08:11 MCHC 32.6 g/dl (32.0-35.9) 03/09/17 08:11 RDW 16.3 % (11.9-15.9) H 03/09/17 08:11 Plt Count 117 K/MM3 (134-434) L D 03/09/17 08:11 MPV 8.5 fl (7.5-11.1) 03/09/17 08:11 CMP Sodium 140 mmol/L (136-145) 03/09/17 08:11 Potassium 4.6 mmol/L (3.5-5.1) 03/09/17 08:11 Chloride 105 mmol/L (98-107) 03/09/17 08:11 Carbon Dioxide 24 mmol/L (21-32) 03/09/17 08:11 Anion Gap 11 (8-16) 03/09/17 08:11 BUN 40 mg/dL (7-18) H 03/09/17 08:11 Creatinine 1.4 mg/dL (0.7-1.3) H D 03/09/17 08:11 Creat Clearance w eGFR 47.72 (>60) 03/09/17 08:11 Random Glucose 141 mg/dL (74-106) H D 03/09/17 08:11 Calcium 7.5 mg/dL (8.5-10.1) L 03/09/17 08:11 Total Bilirubin 0.5 mg/dL (0.2-1.0) D 03/09/17 08:11 AST 61 U/L (15-37) H D 03/09/17 08:11 ALT 24 U/L (12-78) D 03/09/17 08:11 Alkaline Phosphatase 49 U/L (45-117) 03/09/17 08:11 Total Protein 5.9 g/dl (6.4-8.2) L 03/09/17 08:11 Albumin 2.8 g/dl (3.4-5.0) L D 03/09/17 08:11 CARDIAC ENZYMES Creatine Kinase 160 IU/L (39-308) D 03/08/17 03:10 Troponin I 0.95 ng/ml (0.00-0.05) H* D 03/08/17 11:39 Current Medications Generic Name Dose Route Start Last Admin Trade Name Freq PRN Reason Stop Dose Admin Albuterol/Ipratropium 1 amp 03/08/17 06:00 03/09/17 18:31 Duoneb - NEB 1 amp QIDR [facility] Administration Amlodipine Besylate 5 mg 03/08/17 10:00 03/09/17 10:04 Norvasc - PO 5 mg DAILY [facility] Administration Atorvastatin Calcium 10 mg 03/09/17 22:00 Lipitor - PO HS C[facility] Dipyridamole/Aspirin 1 combo 03/08/17 10:00 03/09/17 10:03 Aggrenox - PO 1 combo BID [facility] Administration Heparin Sodium (Porcine) 5,000 unit 03/08/17 22:00 03/09/17 10:03 Heparin - SQ 5,000 unit BID [facility] Administration Azithromycin 250 mls @ 250 mls/hr 03/08/17 10:30 03/09/17 10:04 Zithromax 500mg Ivpb (Pre-Docked) IVPB 250 mls/hr DAILY [facility] Administration Piperacillin Sod/Tazobactam Sod 50 mls @ 100 mls/hr 03/08/17 18:00 03/09/17 17: 16 Zosyn 2.25gm Ivpb (Pre-Docked) IVPB 100 mls/hr Q8H-IV [facility] Administration Protocol Sodium Chloride 1,000 mls @ 50 mls/hr 03/09/17 11:06 03/09/17 12:59 1/2 Normal Saline IV 50 mls/hr ASDIR [facility] Administration Levetiracetam 750 mg 03/08/17 10:00 03/09/17 10:03 Keppra - PO 750 mg BID [facility] Administration Methylprednisolone Sodium Succinate 40 mg 03/08/17 10:15 03/09/17 17:17 Solu-Medrol - IVPB 40 mg Q8H [facility] Administration Montelukast Sodium 10 mg 03/08/17 22:00 03/08/17 23:27 Singulair - PO 10 mg HS [facility] Administration Tamsulosin HCl 0.4 mg 03/08/17 08:30 03/09/17 10:03 Flomax - PO 0.4 mg DAILY@0830 [facility] Administration Home Medications Medication Instructions Recorded Albuterol 0.083% Nebulizer Lela 1 neb NEB BID 09/30/14 [Ventolin 0.083% Nebulizer Soln -] Amlodipine Besylate [Norvasc -] 5 mg PO DAILY 09/30/14 Aspirin/Dipyridamole [Aggrenox -] 1 combo PO BID 09/30/14 Cholecalciferol (Vitamin D3) 1,000 unit PO DAILY 09/30/14 [Vitamin D3] Cholestyramine/Sucrose 4 gm PO BID PRN 09/30/14 [Cholestyramine Packet] Fluticasone Propionate [Flovent 110 mg IH BID 09/30/14 Hfa] Levetiracetam [Keppra -] 750 mg PO BID 09/30/14 Lipase/Protease/Amylase [Pancrease 4 each PO DAILY 09/30/14 EC Capsule] Loratadine 10 mg PO DAILY 09/30/14 Losartan Potassium 50 mg PO DAILY 09/30/14 Montelukast Na [Singulair -] 10 mg PO HS 09/30/14 Simvastatin [Zocor] 20 mg PO HS 09/30/14 Solifenacin Succinate [Vesicare] 10 mg PO DAILY 09/30/14 Tamsulosin HCl [Flomax -] 0.4 mg PO DAILY 09/30/14 Tiotropium [place] [Spiriva] 1 inh PO DAILY 09/30/14 Lipase/Protease/Amylase 2 each PO BIDWM #60 cap 10/06/14 [Pancrelipase 5,000 Dr Capsule -] Oxymetazoline 0.05% Nasal Soln 2 spray NS BID PRN #7 spraybtl 10/06/14 [Afrin -] Ranitidine [Zantac -] 150 mg PO BID #30 tablet 10/06/14 Sulfamethoxazole/Trimethoprim 1 tab PO BID #14 tablet 01/08/17 [Bactrim DS -] Tramadol HCl 50 mg PO Q6H #20 tablet MDD 200mg 01/08/17 CXR showing RLL infiltrate A/P: 89 year old male with significant PMHx of COPD, CHF, CAD, COPD, CVA, brought to the emergency room by EMS due to shortness of breath, found to be in acute respiratory failure and hypotensive. Admitted for septic shock secondary to pneumonia. #s/p Acute sepsis due to community acquired pneumonia with acute hypoxic respiratory failure: On zosyn and Zithromax continue as per ID recommendations #Acute COPD exacerbation: dependent on home O2 (3L NC): albuterol/ipratropium ; singular , ;turdoza ; On solumedrol 40mg IV daily continue #elevated troponin most likely due to sepsis; will trend second ;admitted on tele; ecg no st/t wave abnormalities #acute kidney injury ;BUN 43/Cr 1.9-->1.4 today , trend creatinine #hypertension: On norvasc 5mg po daily continue. Hold losartan due to YEISON; bp stable #hx of congestive heart failure continue meds VTE: heparin sq Visit type - Emergency Visit Emergency Visit: Yes ED Registration Date: 03/08/17 Care time: The patient presented to the Emergency Department on the above date and was hospitalized for further evaluation of their emergent condition. - New Patient This patient is new to me today: No - Critical Care Critical Care patient: No
[2017-03-09] MEDS: ATORVASTATIN CA 10 MG TABLET (FP) PO SCH (21:55)
[2017-03-09] MEDS: MONTELUKAST NA 10 MG TABLET PO SCH (21:56)
[2017-03-10] MEDS: PIPERACILLIN/TAZOB 2.25 GM 50 ML IVPB SCH ×3 (01:28→17:50)
[2017-03-10] MEDS: methylPREDNISolone NA SUCC 40 MG/1 ML VIAL IVPB SCH ×3 (02:09→17:50)
[2017-03-10] MEDS: SODIUM CHLORIDE 0.45% 1,000 ML IV SCH (05:37)
[2017-03-10] MEDS: ALBUTEROL SO4 2.5/IPRATROPIUM 0.5 INH SOL 3 ML VIAL.NEB. NEB SCH ×3 (06:08→18:43)
[2017-03-10 07:52] LABS: BASOPHIL 0.2 % (0-2.0); MCH 30.2 pg (25.7-33.7); MCHC 32.7 g/dl (32.0-35.9); MEAN CELL VOLUME 92.3 fl (80-96); MEAN PLT VOLUME 8.8 fl (7.5-11.1); NEUTROPHILS 95.2 % (42.8-82.8); PLATELET COUNT 116 K/MM3 (134-434); RDW 16.2 % (11.9-15.9); WHITE BLOOD COUNT 17.9 K/mm3 (4.0-10.0)
[2017-03-10 08:24] LABS: ANION GAP 11 (8-16); BILIRUBIN,TOTAL 0.6 mg/dL (0.2-1.0); CALCIUM 8.2 mg/dL (8.5-10.1); CO2 26 mmol/L (21-32); CREATININE 1.1 mg/dL (0.7-1.3); GLUCOSE,RANDOM 146 mg/dL (74-106); SGOT/AST 54 U/L (15-37); SGPT/ALT 41 U/L (12-78); TOT PROT 6.3 g/dl (6.4-8.2)
[2017-03-10 08:25] LABS: ALK PHOS 60 U/L (45-117)
[2017-03-10] MEDS: AZITHROMYCIN IVPB 250 ML IVPB SCH (09:17)
[2017-03-10] MEDS: HEPARIN NA (PORCINE) 5,000 UNITS/ML 1ML VIAL SQ SCH ×2 (09:17→21:44)
[2017-03-10] MEDS: ASPIRIN/DIPYRIDAMOLE 25 MG/200 MG CAPSULE (FP) PO SCH ×2 (09:17→21:42)
[2017-03-10] MEDS: levETIRAcetam 250 MG TABLET (FP) PO SCH ×2 (09:17→21:42)
[2017-03-10] MEDS: amLODIPine BESYLATE 5 MG TABLET (FP) PO SCH ×2 (09:17→17:50)
[2017-03-10] MEDS: TAMSULOSIN HCL 0.4 MG CAP.ER.24H (FP) PO SCH (09:17)
--- NOTE | 2017-03-10 10:54 | CONSULT ---
Admitting History and Physical - Primary Care Physician PCP: Yves Jin - Admission History of Present Illness: 89 year old male with significant PMHx of COPD, CHF, CAD, COPD, CVA, brought to the emergency room by EMS due to shortness of breath, found to be in acute respiratory failure and hypotensive. Admitted for septic secondary to pneumonia. 50% VM O2 alternating with Bipap as needed Pt reports that he started vomiting after he ate 24 hours ago, became SOB, and went to the hospital. He had breakfast and lunch yesterday, vomited after both, made NPO. He reports that he does not heave and vomit but rather the food comes back up and he spits it out. He has a h/o mild dysphagia, coughing on particulate items such as rice. He was placed on Omeprazole about 2 yrs ago,which he had continued on, with improved swallowing until recently. He reports burning at times in chest and burping. He reports drinking OJ, iced tea, seltzer. He eats dinner at 5, reclines after diinner on the couch, and is in bed by 8. History Source: Patient, Family Member Limitations to Obtaining History: No Limitations - Past Medical History [employer]: Yes: CVA, TIA Cardiovascular: Yes: CAD, HTN Pulmonary: Yes: COPD Renal/: Yes: Cancer (prostate) - Past Surgical History Past Surgical History: Yes: Carotid Endarterectomy (carotid "stent" about 2 years go), Stent (carotid; denies cardiac stent) - Smoking History Smoking history: Former smoker Have you smoked in the past 12 months: No Aproximately how many cigarettes per day: 0 If you are a former smoker, when did you quit?: over 20 years go - Alcohol/Substance Use Hx Alcohol Use: No - Social History ADL: Family Assistance History of Recent Travel: No History - Admission Reason For Visit: CHRONIC OBSTRUCTION PULMONARY DISEASE - Diagnostics X-ray: Report Reviewed - General Mental Status: Alert and Oriented (Good historian), Awake and Alert, Able to Follow Commands Attention: Intact Ability to Follow Directions: Excellent Head/Neck Control: WFL - Hearing Hearing: Functional Speech Evaluation - Communication Primary Language: SALVADOREAN Communication: Yes: Within Normal Limits Oral Expression Ability: Yes: No Impairment - Speech Production Intelligibility: Yes: WNL - Speech Characteristics Voice Loudness: Normal Voice Pitch: Yes: Normal Voice Phonatory-based Quality: Yes: Normal Speech Pattern: Normal Speech Clarity: < 100% Nasal Resonance: Normal Articulation: Yes: Precise - Swallow Evaluation/Bedside Assessment Oral Secretions: Yes: WFL Dentition: Yes: Adequate Facial Symmetry at Rest: Symmetrical Facial Symmetry on Retraction: Symmetrical Against Resistance Opening: Normal Against Resistance Closing: Normal Pucker Lips: Normal Smile: Normal Lingual Movement: Normal Lingual Speed of Movement: Normal Lingual Movement Strgth Against Opposition: Normal Lingual Movement Characteristics: Normal Laryngeal Movement: Able to Palpate Timing of Swallow: WFL Coughing/Throat Clear: No Recommendations - Speech Evaluation, Impression/Plan Impression: Speech/cognition intact. Oral/pharyngeal swallowing function overtly seems intact. Suspect esophageal dysphagia r/o candidiasis, GERD, stricture, tertiary contractions, Schatski's ring,etc. Pt swallowed full cup of water well. However, 1-2 min later, pt reported isomething comming back up, and expectorating thick white bubbly phlegm. - Dysphagia Impressions/Plan Swallowing Skills: Impaired Dysphagia Impressions: Risk of Aspiration, Ongoing Evaluation *Silent aspiration: cannot be R/O at bedside Recommendations: GI Consult, MBS w Esophagus - Recommendations Diet Consistency: NPO Liquids: NPO
--- NOTE | 2017-03-10 11:26 | PN ---
Progress Note, Physician History of Present Illness: PULMONARY ALERT,MILDLY DYSPNEIC ON NASAL O2 - Current Medication List Current Medications: Active Medications Albuterol/Ipratropium (Duoneb -) 1 amp NEB QIDR [facility] Last Admin: 03/10/17 11:12 Dose: 1 amp Amlodipine Besylate (Norvasc -) 5 mg PO DAILY [facility] Last Admin: 03/10/17 09:17 Dose: 5 mg Atorvastatin Calcium (Lipitor -) 10 mg PO HS [facility] Last Admin: 03/09/17 21:55 Dose: 10 mg Dipyridamole/Aspirin (Aggrenox -) 1 combo PO BID [facility] Last Admin: 03/10/17 09:17 Dose: 1 combo Heparin Sodium (Porcine) (Heparin -) 5,000 unit SQ BID [facility] Last Admin: 03/10/17 09:17 Dose: 5,000 unit Azithromycin (Zithromax 500mg Ivpb (Pre-Docked)) 250 mls @ 250 mls/hr IVPB DAILY [facility] Last Admin: 03/10/17 09:17 Dose: 250 mls/hr Piperacillin Sod/Tazobactam Sod (Zosyn 2.25gm Ivpb (Pre-Docked)) 50 mls @ 100 mls/hr IVPB Q8H-IV [facility] PRN Reason: Protocol Last Admin: 03/10/17 09:17 Dose: 100 mls/hr Sodium Chloride (1/2 Normal Saline) 1,000 mls @ 50 mls/hr IV ASDIR [facility] Last Admin: 03/10/17 05:37 Dose: 50 mls/hr Levetiracetam (Keppra -) 750 mg PO BID [facility] Last Admin: 03/10/17 09:17 Dose: 750 mg Methylprednisolone Sodium Succinate (Solu-Medrol -) 40 mg IVPB Q8H [facility] Last Admin: 03/10/17 09:17 Dose: 40 mg Montelukast Sodium (Singulair -) 10 mg PO HS [facility] Last Admin: 03/09/17 21:56 Dose: 10 mg Tamsulosin HCl (Flomax -) 0.4 mg PO DAILY@0830 [facility] Last Admin: 03/10/17 09:17 Dose: 0.4 mg - Objective Vital Signs: Vital Signs Temperature 98.2 F 03/10/17 08:30 Pulse Rate 73 03/10/17 11:12 Respiratory Rate 20 06/26/17 08:30 Blood Pressure 176/66 03/10/17 08:30 O2 Sat by Pulse Oximetry (%) 94 L 03/10/17 11:12 Constitutional: Yes: Calm, Obese Eyes: Yes: WNL HENT: Yes: WNL Neck: Yes: WNL Cardiovascular: Yes: Regular Rate and Rhythm, S1, S2 Respiratory: Yes: Rhonchi (SCATTERED JUDITH RHONCHI) Gastrointestinal: Yes: Normal Bowel Sounds, Soft Extremities: Yes: WNL Edema: No Labs: CBC, BMP 03/10/17 05:57 03/10/17 05:57 INR, PTT INR 0.92 (0.82-1.09) 03/08/17 03:10 Assessment/Plan Problem List - Problems (1) COPD (chronic obstructive pulmonary disease) Code(s): J44.9 - CHRONIC OBSTRUCTIVE PULMONARY DISEASE, UNSPECIFIED (2) Elevated troponin Code(s): R74.8 - ABNORMAL LEVELS OF OTHER SERUM ENZYMES (3) Pneumonia Code(s): J18.9 - PNEUMONIA, UNSPECIFIED ORGANISM (4) Acute respiratory failure Code(s): J96.00 - ACUTE RESPIRATORY FAILURE, UNSP W HYPOXIA OR HYPERCAPNIA Assessment/Plan NASAL O2 ,NIPPV as needed Aspiration precautions IV Medrol same dose BD TX ABX Chest x-ray DR CHILD
--- NOTE | 2017-03-10 13:36 | PN ---
Progress Note, Physician History of Present Illness: Pt seen and examined at bedside. He is awake and appears comfortable. - Current Medication List Current Medications: Active Medications Albuterol/Ipratropium (Duoneb -) 1 amp NEB QIDR [facility] Last Admin: 03/10/17 11:12 Dose: 1 amp Amlodipine Besylate (Norvasc -) 5 mg PO DAILY [facility] Last Admin: 03/10/17 09:17 Dose: 5 mg Atorvastatin Calcium (Lipitor -) [address] [facility] Last Admin: 03/09/17 21:55 Dose: 10 mg Dipyridamole/Aspirin (Aggrenox -) 1 combo PO BID [facility] Last Admin: 03/10/17 09:17 Dose: 1 combo Heparin Sodium (Porcine) (Heparin -) 5,000 unit SQ BID [facility] Last Admin: 03/10/17 09:17 Dose: 5,000 unit Azithromycin (Zithromax 500mg Ivpb (Pre-Docked)) 250 mls @ 250 mls/hr IVPB DAILY [facility] Last Admin: 03/10/17 09:17 Dose: 250 mls/hr Piperacillin Sod/Tazobactam Sod (Zosyn 2.25gm Ivpb (Pre-Docked)) 50 mls @ 100 mls/hr IVPB Q8H-IV [facility] PRN Reason: Protocol Last Admin: 03/10/17 09:17 Dose: 100 mls/hr Sodium Chloride (1/2 Normal Saline) 1,000 mls @ 50 mls/hr IV ASDIR [facility] Last Admin: 03/10/17 05:37 Dose: 50 mls/hr Levetiracetam (Keppra -) 750 mg PO BID [facility] Last Admin: 03/10/17 09:17 Dose: 750 mg Methylprednisolone Sodium Succinate (Solu-Medrol -) 40 mg IVPB Q8H [facility] Last Admin: 03/10/17 09:17 Dose: 40 mg Montelukast Sodium (Singulair -) [address] [facility] Last Admin: 03/09/17 21:56 Dose: 10 mg Tamsulosin HCl (Flomax -) 0.4 mg PO DAILY@0830 [facility] Last Admin: 03/10/17 09:17 Dose: 0.4 mg - Objective Vital Signs: Vital Signs Temperature 98.2 F 03/10/17 08:30 Pulse Rate 73 03/10/17 11:12 Respiratory Rate 20 03/10/17 08:30 Blood Pressure 176/66 03/10/17 08:30 O2 Sat by Pulse Oximetry (%) 94 L 03/10/17 11:12 Constitutional: Yes: Calm Eyes: Yes: Conjunctiva Clear HENT: Yes: Atraumatic Cardiovascular: Yes: S1, S2 Respiratory: Yes: Diminished, On Nasal O2 Gastrointestinal: Yes: Soft Genitourinary: Yes: Sal Present Musculoskeletal: Yes: WNL Edema: Yes Edema: LLE: 1+, RLE: 1+ Neurological: Yes: Oriented Psychiatric: Yes: Oriented Labs: CBC, BMP 03/10/17 05:57 03/10/17 05:57 INR, PTT INR 0.92 (0.82-1.09) 03/08/17 03:10 Problem List - Problems (1) YEISON (acute kidney injury) Code(s): N17.9 - ACUTE KIDNEY FAILURE, UNSPECIFIED (2) COPD (chronic obstructive pulmonary disease) Code(s): J44.9 - CHRONIC OBSTRUCTIVE PULMONARY DISEASE, UNSPECIFIED (3) Sepsis Code(s): A41.9 - SEPSIS, UNSPECIFIED ORGANISM Assessment/Plan Current Medications Generic Name Dose Route Start Last Admin Trade Name Freq PRN Reason Stop Dose Admin Albuterol/Ipratropium 1 amp 03/08/17 06:00 03/10/17 11:12 Duoneb - NEB 1 amp QIDR [facility] Administration Amlodipine Besylate 5 mg 03/08/17 10:00 03/10/17 09:17 Norvasc - PO 5 mg DAILY [facility] Administration Atorvastatin Calcium 10 mg 03/09/17 22:00 03/09/17 21:55 Lipitor - PO 10 mg HS [facility] Administration Dipyridamole/Aspirin 1 combo 03/08/17 10:00 03/10/17 09:17 Aggrenox - PO 1 combo BID [facility] Administration Heparin Sodium (Porcine) 5,000 unit 03/08/17 22:00 03/10/17 09:17 Heparin - SQ 5,000 unit BID [facility] Administration Azithromycin 250 mls @ 250 mls/hr 03/08/17 10:30 03/10/17 09:17 Zithromax 500mg Ivpb (Pre-Docked) IVPB 250 mls/hr DAILY [facility] Administration Piperacillin Sod/Tazobactam Sod 50 mls @ 100 mls/hr 03/08/17 18:00 03/10/17 09: 17 Zosyn 2.25gm Ivpb (Pre-Docked) IVPB 100 mls/hr Q8H-IV [facility] Administration Protocol Sodium Chloride 1,000 mls @ 50 mls/hr 03/09/17 11:06 03/10/17 05:37 1/2 Normal Saline IV 50 mls/hr ASDIR [facility] Administration Levetiracetam 750 mg 03/08/17 10:00 03/10/17 09:17 Keppra - PO 750 mg BID [facility] Administration Methylprednisolone Sodium Succinate 40 mg 03/08/17 10:15 03/10/17 09:17 Solu-Medrol - IVPB 40 mg Q8H [facility] Administration Montelukast Sodium 10 mg 03/08/17 22:00 03/09/17 21:56 Singulair - PO 10 mg HS [facility] Administration Tamsulosin HCl 0.4 mg 03/08/17 08:30 03/10/17 09:17 Flomax - PO 0.4 mg DAILY@0830 [facility] Administration Laboratory Tests 03/08/17 03/09/17 03/10/17 03:10 08:11 05:57 Creatinine 1.9 H D 1.4 H D 1.1 D Impression 1. YEISON 2. Sepsis 3. hx CHF 4. COPD 5. CAD 6. hx CVA 7. anemia Plan - observe off of fluids, will stop saline - arb on hold for now - bactrim may have causes elevated creatinine - renal ultrasound reviewed, negative hydro - monitor urine output - follow up echo Dr Avelar
--- NOTE | 2017-03-10 14:40 | PN ---
Progress Note, Physician History of Present Illness: much better on nasal o2 awake and aler - Current Medication List Current Medications: Active Medications Albuterol/Ipratropium (Duoneb -) 1 amp NEB QIDR [facility] Last Admin: 03/10/17 11:12 Dose: 1 amp Amlodipine Besylate (Norvasc -) 5 mg PO DAILY [facility] Last Admin: 03/10/17 09:17 Dose: 5 mg Atorvastatin Calcium (Lipitor -) 10 mg PO [facility] Last Admin: 03/09/17 21:55 Dose: 10 mg Dipyridamole/Aspirin (Aggrenox -) 1 combo PO BID [facility] Last Admin: 03/10/17 09:17 Dose: 1 combo Heparin Sodium (Porcine) (Heparin -) 5,000 unit SQ BID [facility] Last Admin: 03/10/17 09:17 Dose: 5,000 unit Azithromycin (Zithromax 500mg Ivpb (Pre-Docked)) 250 mls @ 250 mls/hr IVPB DAILY [facility] Last Admin: 03/10/17 09:17 Dose: 250 mls/hr Piperacillin Sod/Tazobactam Sod (Zosyn 2.25gm Ivpb (Pre-Docked)) 50 mls @ 100 mls/hr IVPB Q8H-IV [facility] PRN Reason: Protocol Last Admin: 03/10/17 09:17 Dose: 100 mls/hr Levetiracetam (Keppra -) 750 mg PO BID [facility] Last Admin: 03/10/17 09:17 Dose: 750 mg Methylprednisolone Sodium Succinate (Solu-Medrol -) 40 mg IVPB Q8H [facility] Last Admin: 03/10/17 09:17 Dose: 40 mg Montelukast Sodium (Singulair -) 10 mg PO [facility] Last Admin: 03/09/17 21:56 Dose: 10 mg Tamsulosin HCl (Flomax -) 0.4 mg PO DAILY@0830 [facility] Last Admin: 03/10/17 09:17 Dose: 0.4 mg - Objective Vital Signs: Vital Signs Temperature 98.2 F 03/10/17 08:30 Pulse Rate 73 03/10/17 11:12 Respiratory Rate 20 03/10/17 08:30 Blood Pressure 176/66 03/10/17 08:30 O2 Sat by Pulse Oximetry (%) 94 L 03/10/17 11:12 Constitutional: Yes: No Distress, Calm Cardiovascular: Yes: S1, S2 Respiratory: Yes: On Nasal O2, Poor Air Entry, Rhonchi Gastrointestinal: Yes: Normal Bowel Sounds, Soft Extremities: Yes: Other Edema: LLE: Trace, RLE: Trace Neurological: Yes: Alert Psychiatric: Yes: Alert Labs: CBC, BMP 03/10/17 05:57 03/10/17 05:57 INR, PTT INR 0.92 (0.82-1.09) 03/08/17 03:10 Assessment/Plan Problem List - Problems (1) COPD (chronic obstructive pulmonary disease) Code(s): J44.9 - CHRONIC OBSTRUCTIVE PULMONARY DISEASE, UNSPECIFIED (2) Elevated troponin Code(s): R74.8 - ABNORMAL LEVELS OF OTHER SERUM ENZYMES (3) Pneumonia Code(s): J18.9 - PNEUMONIA, UNSPECIFIED ORGANISM (4) Acute respiratory failure Code(s): J96.00 - ACUTE RESPIRATORY FAILURE, UNSP W HYPOXIA OR HYPERCAPNIA blood cx result noted probably a contaminant plan abx resp support bld cx reordered continue abx incentive shelby
--- NOTE | 2017-03-10 16:18 | PN ---
Progress Note, Physician History of Present Illness: seen and examined today, on bipap. awake and alert. states he is feeling better. - Current Medication List Current Medications: Active Medications Albuterol/Ipratropium (Duoneb -) 1 amp NEB QIDR [facility] Last Admin: 03/10/17 11:12 Dose: 1 amp Amlodipine Besylate (Norvasc -) 5 mg PO DAILY [facility] Last Admin: 03/10/17 09:17 Dose: 5 mg Atorvastatin Calcium (Lipitor -) 10 mg PO HS [facility] Last Admin: 03/09/17 21:55 Dose: 10 mg Dipyridamole/Aspirin (Aggrenox -) 1 combo PO BID [facility] Last Admin: 03/10/17 09:17 Dose: 1 combo Heparin Sodium (Porcine) (Heparin -) 5,000 unit SQ BID [facility] Last Admin: 03/10/17 09:17 Dose: 5,000 unit Azithromycin (Zithromax 500mg Ivpb (Pre-Docked)) 250 mls @ 250 mls/hr IVPB DAILY [facility] Last Admin: 03/10/17 09:17 Dose: 250 mls/hr Piperacillin Sod/Tazobactam Sod (Zosyn 2.25gm Ivpb (Pre-Docked)) 50 mls @ 100 mls/hr IVPB Q8H-IV [facility] PRN Reason: Protocol Last Admin: 03/10/17 09:17 Dose: 100 mls/hr Levetiracetam (Keppra -) 750 mg PO BID [facility] Last Admin: 03/10/17 09:17 Dose: 750 mg Methylprednisolone Sodium Succinate (Solu-Medrol -) 40 mg IVPB Q8H [facility] Last Admin: 03/10/17 09:17 Dose: 40 mg Montelukast Sodium (Singulair -) 10 mg PO HS [facility] Last Admin: 03/09/17 21:56 Dose: 10 mg Tamsulosin HCl (Flomax -) 0.4 mg PO DAILY@0830 [facility] Last Admin: 03/10/17 09:17 Dose: 0.4 mg - Objective Vital Signs: Vital Signs Temperature 98 F 03/10/17 14:39 Pulse Rate 75 03/10/17 14:39 Respiratory Rate 22 03/10/17 14:39 Blood Pressure 154/67 03/10/17 14:39 O2 Sat by Pulse Oximetry (%) 94 L 03/10/17 11:12 Constitutional: Yes: No Distress, Calm Eyes: Yes: Conjunctiva Clear, EOM Intact, PERRL HENT: Yes: Atraumatic, Normocephalic Neck: Yes: Supple, Trachea Midline Cardiovascular: Yes: Regular Rate and Rhythm, S1, S2. No: Bradycardia, Tachycardia, Pulse Irregular, Bruit, JVD, Gallop, Murmur, Rub, S3, S4, Varicosities Respiratory: Yes: Regular, Diminished, On BiPap. No: Rales, Rhonchi, SOB, Wheezes Gastrointestinal: Yes: Normal Bowel Sounds, Soft. No: Distention, Tenderness Edema: No Peripheral Pulses WNL: Yes Peripheral Pulses: Left Doralis Pedis: 2+, Right Dorsalis Pedis: 2+ Neurological: Yes: Alert, Oriented Psychiatric: Yes: Alert, Oriented Labs: CBC, BMP 03/10/17 05:57 03/10/17 05:57 INR, PTT INR 0.92 (0.82-1.09) 03/08/17 03:10 - ....Imaging Chest X-ray: Report Reviewed, Image Reviewed EKG: Report Reviewed, Image Reviewed Other: Report Reviewed, Image Reviewed (tele-nsr, frequent pvcs) Assessment/Plan 89 year old man with a history of HTN, HLD, CAD prior stents, Chronic HF ( unknown type), past CVA/TIA, COPD, Prostate Ca, PVD admitted sob, AMS. SOB-likely secondary to COPD -echo showed no sig structural heart disease, normal LV function, no sig valvular abnl, no change from echo 2014 -would not recc diuresis at this time -pulmonary f/up -ok to dc tele, no sig arrhythmias AMS-unclear etiology, h/o CVA -awake and alert today -as per PMD CAD-troponin did not significantly trend up, unlikely type 1 SC -currently on Aggrenox, ok to use this for CAD (ASA) -no bblocker given h/o sig conduction disease -cont Lipitor HTN-above goal -cont norvasc -holding ARB for now due to JEVON, plan to resume if possible HLD -cont Lipitor Carotid stenosis-with reported stent 2 years ago -cont asa and statin
--- NOTE | 2017-03-10 16:49 | PN ---
Physical Exam: SUBJECTIVE: Patient seen and examined at bedside. No overnight events. No new complaints. Breathing improved. Denies CP, NAVARRETE, palpitations, abd.pain, N/V. OBJECTIVE: Vital Signs Period Temp Pulse Resp BP Sys/Bush Pulse Ox Last 24 Hr 98 F-99.2 F 73-84 18-22 145-177/64-77 94-97 GENERAL: awake and alert, NAD HEAD: AT/NC EYES: PERRL, EOMI, sclera anicteric, conjunctiva clear. No ptosis. NECK:Supple, no jvd LUNGS:on Bipap., diminshed breath sounds. HEART: RRR, S1S2 ABDOMEN: Soft, NT, ND, BS(+) EXTREMITIES: 2+ pulses, warm, well-perfused, no edema. NEUROLOGICAL: Cranial nerves II through XII grossly intact. Normal speech, gait not observed. Laboratory Results - last 24 hr 03/09/17 03/09/17 03/09/17 17:49 17:49 21:54 WBC RBC Hgb Hct MCV MCHC RDW Plt Count MPV Neutrophils % Lymphocytes % Monocytes % Eosinophils % Basophils % Sodium Potassium Chloride Carbon Dioxide Anion Gap BUN Creatinine Creat Clearance w eGFR POC Glucometer 153 Random Glucose Calcium Magnesium Total Bilirubin AST ALT Alkaline Phosphatase Total Protein Albumin Triglycerides 87 Cholesterol 117 Total LDL Cholesterol 35 D HDL Cholesterol 68 H D TSH 0.19 L 03/10/17 03/10/17 03/10/17 05:15 05:57 05:57 WBC 17.9 H RBC 3.70 L Hgb 11.2 L Hct 34.2 L MCV 92.3 MCHC 32.7 RDW 16.2 H Plt Count 116 L MPV 8.8 Neutrophils % 95.2 H Lymphocytes % 1.5 L D Monocytes % 3.1 L Eosinophils % 0.0 D Basophils % 0.2 Sodium 140 Potassium 4.5 Chloride 103 Carbon Dioxide 26 Anion Gap 11 BUN 39 H Creatinine 1.1 D Creat Clearance w eGFR > 60 POC Glucometer 150 Random Glucose 146 H Calcium 8.2 L Magnesium 3.0 H Total Bilirubin 0.6 AST 54 H ALT 41 D Alkaline Phosphatase 60 D Total Protein 6.3 L Albumin 3.0 L Triglycerides Cholesterol Total LDL Cholesterol HDL Cholesterol TSH Active Medications Generic Name Dose Route Start Last Admin Trade Name Freq PRN Reason Stop Dose Admin Albuterol/Ipratropium 1 amp 03/08/17 06:00 03/10/17 11:12 Duoneb - NEB 1 amp QIDR CAREY Administration Amlodipine Besylate 5 mg 03/08/17 10:00 03/10/17 09:17 Norvasc - PO 5 mg DAILY CAREY Administration Atorvastatin Calcium 10 mg 03/09/17 22:00 03/09/17 21:55 Lipitor - PO 10 mg HS CAREY Administration Dipyridamole/Aspirin 1 combo 03/08/17 10:00 03/10/17 09:17 Aggrenox - PO 1 combo BID CAREY Administration Heparin Sodium (Porcine) 5,000 unit 03/08/17 22:00 03/10/17 09:17 Heparin - SQ 5,000 unit BID CAREY Administration Azithromycin 250 mls @ 250 mls/hr 03/08/17 10:30 03/10/17 09:17 Zithromax 500mg Ivpb (Pre-Docked) IVPB 250 mls/hr DAILY CAREY Administration Piperacillin Sod/Tazobactam Sod 50 mls @ 100 mls/hr 03/08/17 18:00 03/10/17 09: 17 Zosyn 2.25gm Ivpb (Pre-Docked) IVPB 100 mls/hr Q8H-IV CAREY Administration Protocol Levetiracetam 750 mg 03/08/17 10:00 03/10/17 09:17 Keppra - PO 750 mg BID CAREY Administration Methylprednisolone Sodium Succinate 40 mg 03/08/17 10:15 03/10/17 09:17 Solu-Medrol - IVPB 40 mg Q8H CAREY Administration Montelukast Sodium 10 mg 03/08/17 22:00 03/09/17 21:56 Singulair - PO 10 mg HS CAREY Administration Tamsulosin HCl 0.4 mg 03/08/17 08:30 03/10/17 09:17 Flomax - PO 0.4 mg DAILY@0830 CAREY Administration ASSESSMENT/PLAN: 89 year old male with significant PMHx of COPD, CHF, CAD, COPD, CVA, brought to the emergency room by EMS due to shortness of breath, found to be in acute respiratory failure and hypotensive. Admitted for sepsis secondary to pneumonia. Problem List - Problems (1) Sepsis Assessment/Plan: * secondary to PNA * WBC trending down * Blood cultures show Coag negative staph * Will continue Zosyn and Azithromycin * ID consult appreciated. * repeat CBC in AM (2) Pneumonia Assessment/Plan: * Continue with current Abx regimen. * repeat CXR in AM * Aspiration precautions. Qualifiers: (3) COPD (chronic obstructive pulmonary disease) Assessment/Plan: * Continue supplemental O2 * Bipap PRN * Continue solumedrol IV 40mg Q8H * Continue Singulair * Duoneb QID * Pulmonary consult appreciated. (4) YEISON (acute kidney injury) Assessment/Plan: * Improved. * Will continue to trend. (5) CHF (congestive heart failure) Assessment/Plan: * Echo-no sig structural heart disease, normal LV function, no sig valvular abnl , no change from echo 2014 * Cardio consult appreciated * No diuresis at this time * Will D/C tele (6) CVA (cerebral vascular accident) Assessment/Plan: * Continue Aggrenox and Lipitor. (7) CAD (coronary artery disease) Assessment/Plan: * Continue Lipitor and aggrenox * NO BB 2/2 h/o conduction disease. (8) HTN (hypertension) Assessment/Plan: * Continue Amlodipine 5mg PO daily * Will resume ARB as YEISON has resolved. Visit type - Emergency Visit Emergency Visit: Yes ED Registration Date: 03/08/17 Care time: The patient presented to the Emergency Department on the above date and was hospitalized for further evaluation of their emergent condition. - New Patient This patient is new to me today: Yes Date on this admission: 03/10/17 - Critical Care Critical Care patient: No - Discharge Referral Referred to [facility] Med P.C.: No
[2017-03-10] MEDS ORDERED: amLODIPine BESYLATE 5 MG TABLET (FP) PO STA (17:50)
--- NOTE | 2017-03-10 20:40 | PN ---
Teaching Attending Note Name of Resident: Ramiro Harley ATTENDING PHYSICIAN STATEMENT I saw and evaluated the patient. I reviewed the resident's note and discussed the case with the resident. I agree with the resident's findings and plan as documented. SUBJECTIVE: Patient is having difficulty swallowing. s/p MBS, NPO for now OBJECTIVE: Vital Signs Temperature 98 F 03/10/17 14:39 Pulse Rate 75 03/10/17 14:39 Respiratory Rate 22 03/10/17 14:39 Blood Pressure 154/67 03/10/17 14:39 O2 Sat by Pulse Oximetry (%) 99 03/10/17 18:42 PE: per resident's note CBCD WBC 17.9 K/mm3 (4.0-10.0) H 03/10/17 05:57 RBC 3.70 M/mm3 (4.00-5.60) L 03/10/17 05:57 Hgb 11.2 GM/dL (11.7-16.9) L 03/10/17 05:57 Hct 34.2 % (35.4-49) L 03/10/17 05:57 MCV 92.3 fl (80-96) 03/10/17 05:57 MCHC 32.7 g/dl (32.0-35.9) 03/10/17 05:57 RDW 16.2 % (11.9-15.9) H 03/10/17 05:57 Plt Count 116 K/MM3 (134-434) L 03/10/17 05:57 MPV 8.8 fl (7.5-11.1) 03/10/17 05:57 CMP Sodium 140 mmol/L (136-145) 03/10/17 05:57 Potassium 4.5 mmol/L (3.5-5.1) 03/10/17 05:57 Chloride 103 mmol/L (98-107) 03/10/17 05:57 Carbon Dioxide 26 mmol/L (21-32) 03/10/17 05:57 Anion Gap 11 (8-16) 03/10/17 05:57 BUN 39 mg/dL (7-18) H 03/10/17 05:57 Creatinine 1.1 mg/dL (0.7-1.3) D 03/10/17 05:57 Creat Clearance w eGFR > 60 (>60) 03/10/17 05:57 Random Glucose 146 mg/dL (74-106) H 03/10/17 05:57 Calcium 8.2 mg/dL (8.5-10.1) L 03/10/17 05:57 Total Bilirubin 0.6 mg/dL (0.2-1.0) 03/10/17 05:57 AST 54 U/L (15-37) H 03/10/17 05:57 ALT 41 U/L (12-78) D 03/10/17 05:57 Alkaline Phosphatase 60 U/L (45-117) D 03/10/17 05:57 Total Protein 6.3 g/dl (6.4-8.2) L 03/10/17 05:57 Albumin 3.0 g/dl (3.4-5.0) L 03/10/17 05:57 CARDIAC ENZYMES Creatine Kinase 160 IU/L (39-308) D 03/08/17 03:10 Troponin I 0.95 ng/ml (0.00-0.05) H* D 03/08/17 11:39 Current Medications Generic Name Dose Route Start Last Admin Trade Name Freq PRN Reason Stop Dose Admin Albuterol/Ipratropium 1 amp 03/08/17 06:00 03/10/17 18:43 Duoneb - NEB 1 amp QIDR CAREY Administration Amlodipine Besylate 5 mg 03/08/17 10:00 03/10/17 17:50 Norvasc - PO 5 mg DAILY CAREY Administration Atorvastatin Calcium 10 mg 03/09/17 22:00 03/09/17 21:55 Lipitor - PO 10 mg HS CAREY Administration Dipyridamole/Aspirin 1 combo 03/08/17 10:00 03/10/17 09:17 Aggrenox - PO 1 combo BID CAREY Administration Heparin Sodium (Porcine) 5,000 unit 03/08/17 22:00 03/10/17 09:17 Heparin - SQ 5,000 unit BID CAREY Administration Azithromycin 250 mls @ 250 mls/hr 03/08/17 10:30 03/10/17 09:17 Zithromax 500mg Ivpb (Pre-Docked) IVPB 250 mls/hr DAILY CAREY Administration Piperacillin Sod/Tazobactam Sod 50 mls @ 100 mls/hr 03/08/17 18:00 03/10/17 17: 50 Zosyn 2.25gm Ivpb (Pre-Docked) IVPB 100 mls/hr Q8H-IV CAREY Administration Protocol Levetiracetam 750 mg 03/08/17 10:00 03/10/17 09:17 Keppra - PO 750 mg BID CAREY Administration Methylprednisolone Sodium Succinate 40 mg 03/08/17 10:15 03/10/17 17:50 Solu-Medrol - IVPB 40 mg Q8H CAREY Administration Montelukast Sodium 10 mg 03/08/17 22:00 03/09/17 21:56 Singulair - PO 10 mg HS CAREY Administration Tamsulosin HCl 0.4 mg 03/08/17 08:30 03/10/17 09:17 Flomax - PO 0.4 mg DAILY@0830 CAREY Administration Home Medications Medication Instructions Recorded Albuterol 0.083% Nebulizer Lela 1 neb NEB BID 09/30/14 [Ventolin 0.083% Nebulizer Soln -] Amlodipine Besylate [Norvasc -] 5 mg PO DAILY 09/30/14 Aspirin/Dipyridamole [Aggrenox -] 1 combo PO BID 09/30/14 Cholecalciferol (Vitamin D3) 1,000 unit PO DAILY 09/30/14 [Vitamin D3] Cholestyramine/Sucrose 4 gm PO BID PRN 09/30/14 [Cholestyramine Packet] Fluticasone Propionate [Flovent 110 mg IH BID 09/30/14 Hfa] Levetiracetam [Keppra -] 750 mg PO BID 09/30/14 Lipase/Protease/Amylase [Pancrease 4 each PO DAILY 09/30/14 EC Capsule] Loratadine 10 mg PO DAILY 09/30/14 Losartan Potassium 50 mg PO DAILY 09/30/14 Montelukast Na [Singulair -] 10 mg PO HS 09/30/14 Simvastatin [Zocor] 20 mg PO HS 09/30/14 Solifenacin Succinate [Vesicare] 10 mg PO DAILY 09/30/14 Tamsulosin HCl [Flomax -] 0.4 mg PO DAILY 09/30/14 Tiotropium [place] [Spiriva] 1 inh PO DAILY 09/30/14 Lipase/Protease/Amylase 2 each PO BIDWM #60 cap 10/06/14 [Pancrelipase 5,000 Dr Capsule -] Oxymetazoline 0.05% Nasal Soln 2 spray NS BID PRN #7 spraybtl 10/06/14 [Afrin -] Ranitidine [Zantac -] 150 mg PO BID #30 tablet 10/06/14 Sulfamethoxazole/Trimethoprim 1 tab PO BID #14 tablet 01/08/17 [Bactrim DS -] Tramadol HCl 50 mg PO Q6H #20 tablet MDD 200mg 01/08/17 CXR showing RLL infiltrate ASSESSMENT AND PLAN: 89 year old male with significant PMHx of COPD, CHF, CAD, COPD, CVA, brought to the emergency room by EMS due to shortness of breath, found to be in acute respiratory failure and hypotensive. Admitted for septic secondary to pneumonia. # Esophageal dysphagia s/p MBS , Gi consult will see the patient #Acute sepsis due to community acquired pneumonia with acute hypoxic respiratory failure: on IV antibiotic continue as per ID #Acute COPD exacerbation: dependent on home O2 (3L NC): albuterol/ipratropium ; singular , ;turdoza ; On solumedrol 40mg Iv continue #elevated troponin most likely due to sepsis; will trend second ;admitted on tele; ecg no st/t wave abnormalities #acute kidney injury ;BUN 43/Cr 1.9-->1.1 today #hypertension: On norvasc 5mg po daily continue. Hold losartan due to YEISON; bp stable #hx of congestive heart failure VTE: heparin sq
[2017-03-10] MEDS: MONTELUKAST NA 10 MG TABLET PO SCH (21:43)
[2017-03-10] MEDS: ATORVASTATIN CA 10 MG TABLET (FP) PO SCH (21:43)
[2017-03-11] MEDS: PIPERACILLIN/TAZOB 2.25 GM 50 ML IVPB SCH ×3 (01:55→18:17)
[2017-03-11] MEDS: methylPREDNISolone NA SUCC 40 MG/1 ML VIAL IVPB SCH ×5 (01:55→21:44)
[2017-03-11] MEDS: ALBUTEROL SO4 2.5/IPRATROPIUM 0.5 INH SOL 3 ML VIAL.NEB. NEB SCH ×4 (06:10→17:57)
[2017-03-11 07:55] LABS: BASOPHIL 0.1 % (0-2.0); MCH 30.1 pg (25.7-33.7); MCHC 32.8 g/dl (32.0-35.9); MEAN CELL VOLUME 91.7 fl (80-96); MEAN PLT VOLUME 8.7 fl (7.5-11.1); NEUTROPHILS 93.6 % (42.8-82.8); PLATELET COUNT 136 K/MM3 (134-434); RDW 15.7 % (11.9-15.9); WHITE BLOOD COUNT 13.2 K/mm3 (4.0-10.0)
[2017-03-11 08:23] LABS: ANION GAP 9 (8-16); CALCIUM 8.2 mg/dL (8.5-10.1); CO2 27 mmol/L (21-32); CREATININE 1.1 mg/dL (0.7-1.3); GLUCOSE,RANDOM 154 mg/dL (74-106)
--- NOTE | 2017-03-11 08:37 | PN ---
Progress Note (short form) - Note Progress Note: GASTROENTEROLOGY CONSULT ORDER PLACED IN COMPUTER BUT NEVER CALLED INTO MY SERVICE. I NOTICED CONSULT ORDER TODAY BUT WILL B UNAVAILABLE FOR THE NEXT 10 DAYS. PLEASE CALL ANOTHER CITY LIBRARY DIRECTOR. SPOKE WITH NURSING STAFF. WILL CALL THE HOSPITALIST KANE SMALLS MD
--- NOTE | 2017-03-11 09:22 | PN ---
Progress Note (short form) - Note Progress Note: Awake on 50% VM. Mildly tachypneic at rest, but has made some clinical improvement. Noted NPO due to suspected aspiration. Intake & Output 03/08/17 03/09/17 03/10/17 03/11/17 23:59 23:59 23:59 23:59 Intake Total 191 944 5100 50 Output Total 1000 1700 1450 400 Balance -475 -950 -110 -350 Weight 200 lb Last Vital Signs Temp Pulse Resp BP Pulse Ox 98.3 F 66 22 159/76 96 03/11/17 07:02 03/11/17 07:02 03/11/17 07:02 03/11/17 07:02 03/10/17 23:00 Active Medications Albuterol/Ipratropium (Duoneb -) 1 amp NEB QIDR [facility] Last Admin: 03/11/17 06:10 Dose: 1 amp Amlodipine Besylate (Norvasc -) 5 mg PO DAILY [facility] Last Admin: 03/10/17 17:50 Dose: 5 mg Atorvastatin Calcium (Lipitor -) 10 mg PO HS [facility] Last Admin: 03/10/17 21:43 Dose: 10 mg Dipyridamole/Aspirin (Aggrenox -) 1 combo PO BID [facility] Last Admin: 03/10/17 21:42 Dose: 1 combo Heparin Sodium (Porcine) (Heparin -) 5,000 unit SQ BID [facility] Last Admin: 03/10/17 21:44 Dose: 5,000 unit Azithromycin (Zithromax 500mg Ivpb (Pre-Docked)) 250 mls @ 250 mls/hr IVPB DAILY [facility] Last Admin: 03/10/17 09:17 Dose: 250 mls/hr Piperacillin Sod/Tazobactam Sod (Zosyn 2.25gm Ivpb (Pre-Docked)) 50 mls @ 100 mls/hr IVPB Q8H-IV [facility] PRN Reason: Protocol Last Admin: 03/11/17 01:55 Dose: 100 mls/hr Levetiracetam (Keppra -) 750 mg PO BID [facility] Last Admin: 03/10/17 21:42 Dose: 750 mg Methylprednisolone Sodium Succinate (Solu-Medrol -) 40 mg IVPB Q8H [facility] Last Admin: 03/11/17 01:55 Dose: 40 mg Montelukast Sodium (Singulair -) 10 mg PO HS [facility] Last Admin: 03/10/17 21:43 Dose: 10 mg Tamsulosin HCl (Flomax -) 0.4 mg PO DAILY@0830 [facility] Last Admin: 03/10/17 09:17 Dose: 0.4 mg Constitutional: Yes: Mildly tachypneic at rest Eyes: Yes: Conjunctiva Clear HENT: Yes: Atraumatic, Normocephalic Neck: Yes: Supple, Trachea Midline Cardiovascular: Yes: Tachycardia Respiratory: Yes: Diminished, Bilateral Rhonchi, Tachypnea. No: Stridor, Wheezes ...Inspection: Yes: WNL ...Clubbing: No Gastrointestinal: Yes: Normal Bowel Sounds, Soft Musculoskeletal: Yes: WNL Extremities: Yes: WNL Edema: No Peripheral Pulses WNL: Yes Integumentary: Yes: WNL Neurological: Yes: Confusion Labs: Laboratory Results - last 24 hr 03/11/17 03/11/17 06:30 06:30 WBC 13.2 H RBC 3.89 L Hgb 11.7 Hct 35.7 MCV 91.7 MCHC 32.8 RDW 15.7 Plt Count 136 MPV 8.7 Neutrophils % 93.6 H Lymphocytes % 2.1 L D Monocytes % 4.2 Eosinophils % 0.0 Basophils % 0.1 Sodium 142 Potassium 4.4 Chloride 106 Carbon Dioxide 27 Anion Gap 9 BUN 39 H Creatinine 1.1 Random Glucose 154 H Calcium 8.2 L Problem List - Problems (1) COPD (chronic obstructive pulmonary disease) Code(s): J44.9 - CHRONIC OBSTRUCTIVE PULMONARY DISEASE, UNSPECIFIED (2) Elevated troponin Code(s): R74.8 - ABNORMAL LEVELS OF OTHER SERUM ENZYMES (3) Pneumonia Code(s): J18.9 - PNEUMONIA, UNSPECIFIED ORGANISM (4) Acute respiratory failure Code(s): J96.00 - ACUTE RESPIRATORY FAILURE, UNSP W HYPOXIA OR HYPERCAPNIA Assessment/Plan 50% VM O2 NIPPV if respiratory status worsens Aspiration precautions BD TX ABX Taper Medrol DNR/DNI Dr Falk Problem List - Problems (1) COPD (chronic obstructive pulmonary disease) Code(s): J44.9 - CHRONIC OBSTRUCTIVE PULMONARY DISEASE, UNSPECIFIED (2) Elevated troponin Code(s): R74.8 - ABNORMAL LEVELS OF OTHER SERUM ENZYMES (3) Pneumonia Code(s): J18.9 - PNEUMONIA, UNSPECIFIED ORGANISM Qualifiers: Pneumonia type: due to unspecified organism (4) Acute respiratory failure Code(s): J96.00 - ACUTE RESPIRATORY FAILURE, UNSP W HYPOXIA OR HYPERCAPNIA
[2017-03-11] MEDS: TAMSULOSIN HCL 0.4 MG CAP.ER.24H (FP) PO SCH (09:30)
[2017-03-11] MEDS: amLODIPine BESYLATE 5 MG TABLET (FP) PO SCH (10:17)
[2017-03-11] MEDS: ASPIRIN/DIPYRIDAMOLE 25 MG/200 MG CAPSULE (FP) PO SCH ×2 (10:17→21:42)
[2017-03-11] MEDS: levETIRAcetam 250 MG TABLET (FP) PO SCH ×2 (10:17→21:41)
[2017-03-11] MEDS: AZITHROMYCIN IVPB 250 ML IVPB SCH (10:17)
[2017-03-11] MEDS: HEPARIN NA (PORCINE) 5,000 UNITS/ML 1ML VIAL SQ SCH ×2 (10:18→21:44)
--- NOTE | 2017-03-11 11:26 | CON.GI ---
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: CVA, Dementia, TIA Cardio/Vascular: Yes: CAD, HTN Pulmonary: Yes: COPD Gastrointestinal: Yes: Other (HX OF PROGRESSIVE REGURGITATION FOR YEARS, PLACED ON OMEPRAZOLE BY PMD NO WORK UP EVER DONE DESPITE SYMPTOMS) Renal/: Yes: Cancer (prostate) - Past Surgical History Past Surgical History: Yes: Carotid Endarterectomy (carotid "stent" about 2 years go), Stent (carotid; denies cardiac stent) - Alcohol/Substance Use Hx Alcohol Use: No - Smoking History Smoking history: Former smoker Have you smoked in the past 12 months: No Aproximately how many cigarettes per day: 0 If you are a former smoker, when did you quit?: over 20 years go - Social History Usual Living Arrangement: With Spouse ADL: Family Assistance History of Recent Travel: No Home Medications - Allergies Allergies/Adverse Reactions: Allergies Allergy/AdvReac Type Severity Reaction Status Date / Time Anesthetics - Angle Type- Allergy Unknown Verified 03/08/17 03:04 Parabens [Anesthetics - Angle Type] latex Allergy Verified 03/08/17 03:04 - Home Medications Home Medications: Ambulatory Orders Albuterol 0.083% Nebulizer Lela [Ventolin 0.083% Nebulizer Soln -] 1 neb NEB BID 09/30/14 Amlodipine Besylate [Norvasc -] 5 mg PO DAILY 09/30/14 Aspirin/Dipyridamole [Aggrenox -] 1 combo PO BID 09/30/14 Cholecalciferol (Vitamin D3) [Vitamin D3] 1,000 unit PO DAILY 09/30/14 Cholestyramine/Sucrose [Cholestyramine Packet] 4 gm PO BID PRN 09/30/14 Fluticasone Propionate [Flovent Hfa] 110 mg IH BID 09/30/14 Levetiracetam [Keppra -] 750 mg PO BID 09/30/14 Lipase/Protease/Amylase [Pancrease EC Capsule] 4 each PO DAILY 09/30/14 Loratadine 10 mg PO DAILY 09/30/14 Losartan Potassium 50 mg PO DAILY 09/30/14 Montelukast Na [Singulair -] 10 mg PO HS 01/16/15 Simvastatin [Zocor] 20 mg PO HS 09/30/14 Solifenacin Succinate [Vesicare] 10 mg PO DAILY 09/30/14 Tamsulosin HCl [Flomax -] 0.4 mg PO DAILY 09/30/14 Tiotropium [place] [Spiriva] 1 inh PO DAILY 09/30/14 Lipase/Protease/Amylase [Pancrelipase 5,000 Dr Capsule -] 2 each PO BIDWM #60 cap 10/06/14 Oxymetazoline 0.05% Nasal Soln [Afrin -] 2 spray NS BID PRN #7 spraybtl Ranitidine [Zantac -] 150 mg PO BID #30 tablet 10/06/14 Sulfamethoxazole/Trimethoprim [Bactrim DS -] 1 tab PO BID #14 tablet 01/08/17 Tramadol HCl 50 mg PO Q6H #20 tablet MDD 200mg 01/08/17 Family Disease History - Family Disease History Family History: Unremarkable Review of Systems - Review of Systems Constitutional: reports: Chills Eyes: reports: No Symptoms HENT: reports: No Symptoms Neck: reports: No Symptoms Cardiovascular: reports: No Symptoms Respiratory: reports: Cough, SOB, SOB on Exertion Gastrointestinal: reports: Other (REGURITATION ONE OTR TWO HOURS AFTER MELAS, NEVER HAD ESOPHAGEAL FOOD IMPACTION, THIS ADMISSION FOR PNEUMONIA) Musculoskeletal: reports: No Symptoms Neurological: reports: No Symptoms Endocrine: reports: No Symptoms Physical Exam-GI Vital Signs: Vital Signs Temperature 98.3 F 03/11/17 07:02 Pulse Rate 66 03/11/17 07:02 Respiratory Rate 22 03/11/17 07:02 Blood Pressure 159/76 03/11/17 07:02 O2 Sat by Pulse Oximetry (%) 96 03/10/17 23:00 Constitutional: Yes: Obese Eyes: Yes: Conjunctiva Clear HENT: Yes: Normocephalic Neck: Yes: Supple Cardiovascular: Yes: Regular Rate and Rhythm Respiratory: Yes: Diminished, Rhonchi ...Auscultate: Yes: Normoactive Bowel Sounds ...Palpate: Yes: Soft, Other (NONTENDER) Extremities: Yes: WNL Labs: CBC, BMP 03/11/17 06:30 03/11/17 06:30 INR, PTT INR 0.92 (0.82-1.09) 03/08/17 03:10 Imaging - Results Chest X-ray: Image Reviewed Cat Scan: Image Reviewed Problem List - Problems (1) Regurgitation Assessment/Plan: HE HAS HAD THIS SYMPTOMS FOR YEARS! HE HAS HAD NO WORKUP. THE SYMPTOMS HAVE BEEN GETTING WORSE NOW. HE IS NOT CLINICALLY WELL ENOUGH YET FOR EGD. SPOKE WITH SPEECH PATHOLOGIST AND THE SWALLOWING WAS GOOD BUT SHE QUESTIONED ESOPHAGEAL DYSMOTILITY. WILL ORDER AN ESOPHAGRAM. IF EGD IS NEEDED THEN WILL NEED PULMONARY AND MEDICAL CLEARANCE TO PERFORM. KANE SMALLS MD Code(s): R11.10 - VOMITING, UNSPECIFIED (2) Esophageal dysmotility Code(s): K22.4 - DYSKINESIA OF ESOPHAGUS (3) Pneumonia Code(s): J18.9 - PNEUMONIA, UNSPECIFIED ORGANISM Qualifiers: Pneumonia type: due to unspecified organism
--- NOTE | 2017-03-11 12:55 | PN ---
Progress Note, BUSINESS PLANNING MANAGER - Note Progress Note: Case reviewed with GI. Dys whole diet/thin liquids ordered. No vomiting reported after breakfast. However, pt was reported to be coughing this am. Staff and pt unsure if this was before or after PO intake. Compensatory strategies reviewed with pt and staff, HOB elevated during and after meals, alternating solid with liquid, slow intake, small bites. Pending esophagram, for further assessment of esophageal structure and function.
[2017-03-11] MEDS: SODIUM CHLORIDE 0.45% 1,000 ML IV SCH (13:31)
--- NOTE | 2017-03-11 13:58 | PN ---
Progress Note, Physician History of Present Illness: patient has suspected aspiration stable says he is improving slowly on nasal cannula and bipap - Current Medication List Current Medications: Active Medications Albuterol/Ipratropium (Duoneb -) 1 amp NEB QIDR [facility] Last Admin: 03/11/17 06:10 Dose: 1 amp Amlodipine Besylate (Norvasc -) 5 mg PO DAILY [facility] Last Admin: 03/11/17 10:17 Dose: 5 mg Atorvastatin Calcium (Lipitor -) 10 mg PO [facility] Last Admin: 03/10/17 21:43 Dose: 10 mg Dipyridamole/Aspirin (Aggrenox -) 1 combo PO BID [facility] Last Admin: 03/11/17 10:17 Dose: 1 combo Heparin Sodium (Porcine) (Heparin -) 5,000 unit SQ BID [facility] Last Admin: 03/11/17 10:18 Dose: 5,000 unit Piperacillin Sod/Tazobactam Sod (Zosyn 2.25gm Ivpb (Pre-Docked)) 50 mls @ 100 mls/hr IVPB Q8H-IV [facility] PRN Reason: Protocol Last Admin: 03/11/17 09:17 Dose: 100 mls/hr Lactobacillus Acidophilus (Bacid -) 1 tab PO BID [facility] Levetiracetam (Keppra -) 750 mg PO BID [facility] Last Admin: 03/11/17 10:17 Dose: 750 mg Methylprednisolone Sodium Succinate (Solu-Medrol -) 30 mg IVPB BID [facility] Last Admin: 03/11/17 10:18 Dose: 30 mg Montelukast Sodium (Singulair -) 10 mg PO [facility] Last Admin: 03/10/17 21:43 Dose: 10 mg Tamsulosin HCl (Flomax -) 0.4 mg PO DAILY@0830 [facility] Last Admin: 03/11/17 09:30 Dose: 0.4 mg - Objective Vital Signs: Vital Signs Temperature 98.3 F 03/11/17 07:02 Pulse Rate 66 03/11/17 07:02 Respiratory Rate 22 03/11/17 07:02 Blood Pressure 159/76 03/11/17 07:02 O2 Sat by Pulse Oximetry (%) 96 03/10/17 23:00 Constitutional: Yes: No Distress, Calm, Obese Cardiovascular: Yes: Regular Rate and Rhythm Respiratory: Yes: Regular, On BiPap, On Nasal O2, Poor Air Entry, Other Gastrointestinal: Yes: Normal Bowel Sounds, Soft Musculoskeletal: Yes: WNL Extremities: Yes: WNL Neurological: Yes: Alert, Oriented Psychiatric: Yes: Alert Labs: CBC, BMP 03/11/17 06:30 03/11/17 06:30 INR, PTT INR 0.92 (0.82-1.09) 03/08/17 03:10 Assessment/Plan Problem List - Problems (1) COPD (chronic obstructive pulmonary disease) Code(s): J44.9 - CHRONIC OBSTRUCTIVE PULMONARY DISEASE, UNSPECIFIED (2) Elevated troponin Code(s): R74.8 - ABNORMAL LEVELS OF OTHER SERUM ENZYMES (3) Pneumonia Code(s): J18.9 - PNEUMONIA, UNSPECIFIED ORGANISM (4) Acute respiratory failure Code(s): J96.00 - ACUTE RESPIRATORY FAILURE, UNSP W HYPOXIA OR HYPERCAPNIA blood cx result noted probably a contaminant plan abx resp support bld cx awaited continue abx incentive [place]
[2017-03-11] MEDS ORDERED: FUROSEMIDE 40 MG/4 ML INJECTABLE VIAL IVPUSH ONE (14:27)
--- NOTE | 2017-03-11 15:11 | PN ---
Progress Note, Physician History of Present Illness: Pt seen and examined at bedside. He is more awake and alert today. - Current Medication List Current Medications: Active Medications Albuterol/Ipratropium (Duoneb -) 1 amp NEB QIDR [facility] Last Admin: 03/11/17 12:17 Dose: 1 amp Amlodipine Besylate (Norvasc -) 5 mg PO DAILY [facility] Last Admin: 03/11/17 10:17 Dose: 5 mg Atorvastatin Calcium (Lipitor -) 10 mg PO [facility] Last Admin: 03/10/17 21:43 Dose: 10 mg Dipyridamole/Aspirin (Aggrenox -) 1 combo PO BID [facility] Last Admin: 03/11/17 10:17 Dose: 1 combo Heparin Sodium (Porcine) (Heparin -) 5,000 unit SQ BID [facility] Last Admin: 03/11/17 10:18 Dose: 5,000 unit Piperacillin Sod/Tazobactam Sod (Zosyn 2.25gm Ivpb (Pre-Docked)) 50 mls @ 100 mls/hr IVPB Q8H-IV [facility] PRN Reason: Protocol Last Admin: 03/11/17 09:17 Dose: 100 mls/hr Lactobacillus Acidophilus (Bacid -) 1 tab PO BID [facility] Levetiracetam (Keppra -) 750 mg PO BID [facility] Last Admin: 03/11/17 10:17 Dose: 750 mg Methylprednisolone Sodium Succinate (Solu-Medrol -) 30 mg IVPB BID [facility] Last Admin: 03/11/17 10:18 Dose: 30 mg Montelukast Sodium (Singulair -) 10 mg PO [facility] Last Admin: 03/10/17 21:43 Dose: 10 mg Tamsulosin HCl (Flomax -) 0.4 mg PO DAILY@0830 [facility] Last Admin: 03/11/17 09:30 Dose: 0.4 mg - Objective Vital Signs: Vital Signs Temperature 98.3 F 03/11/17 07:02 Pulse Rate 66 03/11/17 07:02 Respiratory Rate 22 03/11/17 07:02 Blood Pressure 159/76 03/11/17 07:02 O2 Sat by Pulse Oximetry (%) 96 03/10/17 23:00 Constitutional: Yes: Calm Eyes: Yes: Conjunctiva Clear HENT: Yes: Atraumatic Neck: Yes: Supple Cardiovascular: Yes: S1, S2 Respiratory: Yes: On Nasal O2, Wheezes Gastrointestinal: Yes: Soft, Abdomen, Obese Genitourinary: Yes: Batista Present Musculoskeletal: Yes: Muscle Weakness Edema: Yes Edema: LLE: Trace, RLE: Trace Neurological: Yes: Oriented Psychiatric: Yes: Oriented Labs: CBC, BMP 03/11/17 06:30 03/11/17 06:30 INR, PTT INR 0.92 (0.82-1.09) 03/08/17 03:10 Problem List - Problems (1) YEISON (acute kidney injury) Code(s): N17.9 - ACUTE KIDNEY FAILURE, UNSPECIFIED (2) COPD (chronic obstructive pulmonary disease) Code(s): J44.9 - CHRONIC OBSTRUCTIVE PULMONARY DISEASE, UNSPECIFIED (3) Sepsis Code(s): A41.9 - SEPSIS, UNSPECIFIED ORGANISM Assessment/Plan Current Medications Generic Name Dose Route Start Last Admin Trade Name Freq PRN Reason Stop Dose Admin Albuterol/Ipratropium 1 amp 03/08/17 06:00 03/11/17 12:17 Duoneb - NEB 1 amp QIDR [facility] Administration Amlodipine Besylate 5 mg 03/08/17 10:00 03/11/17 10:17 Norvasc - PO 5 mg DAILY [facility] Administration Atorvastatin Calcium 10 mg 03/09/17 22:00 03/10/17 21:43 Lipitor - PO 10 mg HS [facility] Administration Dipyridamole/Aspirin 1 combo 03/08/17 10:00 03/11/17 10:17 Aggrenox - PO 1 combo BID [facility] Administration Heparin Sodium (Porcine) 5,000 unit 03/08/17 22:00 03/11/17 10:18 Heparin - SQ 5,000 unit BID [facility] Administration Piperacillin Sod/Tazobactam Sod 50 mls @ 100 mls/hr 03/08/17 18:00 03/11/17 09: 17 Zosyn 2.25gm Ivpb (Pre-Docked) IVPB 100 mls/hr Q8H-IV [facility] Administration Protocol Lactobacillus Acidophilus 1 tab 03/11/17 22:00 Bacid - PO BID [facility] Levetiracetam 750 mg 03/08/17 10:00 03/11/17 10:17 Keppra - PO 750 mg BID [facility] Administration Methylprednisolone Sodium Succinate 30 mg 03/11/17 09:30 03/11/17 10:18 Solu-Medrol - IVPB 30 mg BID [facility] Administration Montelukast Sodium 10 mg 03/08/17 22:00 03/10/17 21:43 Singulair - PO 10 mg HS [facility] Administration Tamsulosin HCl 0.4 mg 03/08/17 08:30 03/11/17 09:30 Flomax - PO 0.4 mg DAILY@0830 [facility] Administration Impression 1. YEISON 2. Sepsis 3. hx CHF 4. COPD 5. CAD 6. hx CVA 7. anemia Plan - pt is stable off of fluids - repeat labs in am - avoid bactrim - can restart ARB in am - can d/c batista catheter - echo reviewed Dr Avelar
--- NOTE | 2017-03-11 15:12 | PN ---
Teaching Attending Note Name of Resident: Ramiro Harley ATTENDING PHYSICIAN STATEMENT I saw and evaluated the patient. I reviewed the resident's note and discussed the case with the resident. I agree with the resident's findings and plan as documented. SUBJECTIVE: Patient is feeling better, breathing better, s/p swallowing evaluation. OBJECTIVE: Vital Signs Temperature 98.3 F 03/11/17 07:02 Pulse Rate 66 03/11/17 07:02 Respiratory Rate 22 03/11/17 07:02 Blood Pressure 159/76 03/11/17 07:02 O2 Sat by Pulse Oximetry (%) 96 03/10/17 23:00 CBCD WBC 13.2 K/mm3 (4.0-10.0) H 03/11/17 06:30 RBC 3.89 M/mm3 (4.00-5.60) L 03/11/17 06:30 Hgb 11.7 GM/dL (11.7-16.9) 03/11/17 06:30 Hct 35.7 % (35.4-49) 03/11/17 06:30 MCV 91.7 fl (80-96) 03/11/17 06:30 MCHC 32.8 g/dl (32.0-35.9) 03/11/17 06:30 RDW 15.7 % (11.9-15.9) 03/11/17 06:30 Plt Count 136 K/MM3 (134-434) 03/11/17 06:30 MPV 8.7 fl (7.5-11.1) 03/11/17 06:30 CMP Sodium 142 mmol/L (136-145) 03/11/17 06:30 Potassium 4.4 mmol/L (3.5-5.1) 03/11/17 06:30 Chloride 106 mmol/L (98-107) 03/11/17 06:30 Carbon Dioxide 27 mmol/L (21-32) 03/11/17 06:30 Anion Gap 9 (8-16) 03/11/17 06:30 BUN 39 mg/dL (7-18) H 03/11/17 06:30 Creatinine 1.1 mg/dL (0.7-1.3) 03/11/17 06:30 Creat Clearance w eGFR > 60 (>60) 03/10/17 05:57 Random Glucose 154 mg/dL (74-106) H 03/11/17 06:30 Calcium 8.2 mg/dL (8.5-10.1) L 03/11/17 06:30 Total Bilirubin 0.6 mg/dL (0.2-1.0) 03/10/17 05:57 AST 54 U/L (15-37) H 03/10/17 05:57 ALT 41 U/L (12-78) D 03/10/17 05:57 Alkaline Phosphatase 60 U/L (45-117) D 03/10/17 05:57 Total Protein 6.3 g/dl (6.4-8.2) L 03/10/17 05:57 Albumin 3.0 g/dl (3.4-5.0) L 03/10/17 05:57 CARDIAC ENZYMES Creatine Kinase 160 IU/L (39-308) D 03/08/17 03:10 Troponin I 0.95 ng/ml (0.00-0.05) H* D 03/08/17 11:39 Current Medications Generic Name Dose Route Start Last Admin Trade Name Aaronq PRN Reason Stop Dose Admin Albuterol/Ipratropium 1 amp 03/08/17 06:00 03/11/17 12:17 Duoneb - NEB 1 amp QIDR [facility] Administration Amlodipine Besylate 5 mg 03/08/17 10:00 03/11/17 10:17 Norvasc - PO 5 mg DAILY [facility] Administration Atorvastatin Calcium 10 mg 03/09/17 22:00 03/10/17 21:43 Lipitor - PO 10 mg HS [facility] Administration Dipyridamole/Aspirin 1 combo 03/08/17 10:00 03/11/17 10:17 Aggrenox - PO 1 combo BID [facility] Administration Heparin Sodium (Porcine) 5,000 unit 03/08/17 22:00 03/11/17 10:18 Heparin - SQ 5,000 unit BID [facility] Administration Piperacillin Sod/Tazobactam Sod 50 mls @ 100 mls/hr 03/08/17 18:00 03/11/17 09: 17 Zosyn 2.25gm Ivpb (Pre-Docked) IVPB 100 mls/hr Q8H-IV [facility] Administration Protocol Lactobacillus Acidophilus 1 tab 03/11/17 22:00 Bacid - PO BID [facility] Levetiracetam 750 mg 03/08/17 10:00 03/11/17 10:17 Keppra - PO 750 mg BID [facility] Administration Methylprednisolone Sodium Succinate 30 mg 03/11/17 09:30 03/11/17 10:18 Solu-Medrol - IVPB 30 mg BID [facility] Administration Montelukast Sodium 10 mg 03/08/17 22:00 03/10/17 21:43 Singulair - PO 10 mg HS [facility] Administration Tamsulosin HCl 0.4 mg 03/08/17 08:30 03/11/17 09:30 Flomax - PO 0.4 mg DAILY@0830 [facility] Administration Home Medications Medication Instructions Recorded Albuterol 0.083% Nebulizer Lela 1 neb NEB BID 09/30/14 [Ventolin 0.083% Nebulizer Soln -] Amlodipine Besylate [Norvasc -] 5 mg PO DAILY 09/30/14 Aspirin/Dipyridamole [Aggrenox -] 1 combo PO BID 09/30/14 Cholecalciferol (Vitamin D3) 1,000 unit PO DAILY 09/30/14 [Vitamin D3] Cholestyramine/Sucrose 4 gm PO BID PRN 09/30/14 [Cholestyramine Packet] Fluticasone Propionate [Flovent 110 mg IH BID 09/30/14 Hfa] Levetiracetam [Keppra -] 750 mg PO BID 09/30/14 Lipase/Protease/Amylase [Pancrease 4 each PO DAILY 09/30/14 EC Capsule] Loratadine 10 mg PO DAILY 09/30/14 Losartan Potassium 50 mg PO DAILY 09/30/14 Montelukast Na [Singulair -] 10 mg PO HS 09/30/14 Simvastatin [Zocor] 20 mg PO HS 09/30/14 Solifenacin Succinate [Vesicare] 10 mg PO DAILY 09/30/14 Tamsulosin HCl [Flomax -] 0.4 mg PO DAILY 09/30/14 Tiotropium [place] [Spiriva] 1 inh PO DAILY 09/30/14 Lipase/Protease/Amylase 2 each PO BIDWM #60 cap 10/06/14 [Pancrelipase 5,000 Dr Capsule -] Oxymetazoline 0.05% Nasal Soln 2 spray NS BID PRN #7 spraybtl 10/06/14 [Afrin -] Ranitidine [Zantac -] 150 mg PO BID #30 tablet 10/06/14 Sulfamethoxazole/Trimethoprim 1 tab PO BID #14 tablet 01/08/17 [Bactrim DS -] Tramadol HCl 50 mg PO Q6H #20 tablet MDD 200mg 01/08/17 Microbiology 03/08/17 05:30 Blood - Peripheral Venous Blood Culture - Preliminary Staphylococcus Coagulase Neg 03/08/17 05:31 Blood - Peripheral Venous Blood Culture - Preliminary Gram Positive Bacillus 03/10/17 13:00 Stool Clostridium difficile Antigen (LAMONTE) - Final 03/10/17 13:00 Stool Clostridium difficile Toxin Assay - Final 03/08/17 08:00 Urine - Urine Sal Urine Culture - Final NO GROWTH OBTAINED PE: per resident's note CXR showing RLL infiltrate ASSESSMENT AND PLAN: 89 year old male with significant PMHx of COPD, CHF, CAD, COPD, CVA, brought to the emergency room by EMS due to shortness of breath, found to be in acute respiratory failure and hypotensive. Admitted for severe sepsis secondary to pneumonia. # Esophageal dysphagia s/p MBS , Gi consult , patient is going for esophagram today, follow the result. possible need of EGD #s/p Acute severe sepsis, pre due to community acquired pneumonia with acute hypoxic respiratory failure: ID consulted ; patient is on NC now s/p Bipap, elevated lactic acid 4.8; on Zosyn now s/p IV vancomycin, Rocephin, Zithromax. # S/p Acute respiratory failure s/p BIpap. due to CAP on IV zosyn now #Acute COPD exacerbation: dependent on home O2 (3L NC): albuterol/ipratropium ; singular , ;turdoza ; On solumedrol continue #elevated troponin most likely due to sepsis; admitted on tele; ecg no st/t wave abnormalities #acute kidney injury ;BUN 43/Cr 1.9-->1.1 today , trend creatinine #hypertension: On norvasc 5mg po daily continue. Hold losartan due to YEISON; bp is stable now #hx of congestive heart failure VTE: heparin sq Esophogram result is pending, possible needing EGD ; GI Festus
--- NOTE | 2017-03-11 16:12 | PN ---
Physical Exam: SUBJECTIVE: Patient seen and examined at bedside. No overnight events. No new complaints. Breathing has improved. Off bipap. Denies CP,NAVARRETE, palpitations, abd. pain, N/V. OBJECTIVE: Vital Signs Period Temp Pulse Resp BP Sys/Bush Pulse Ox Last 24 Hr 98.3 F 66 22-22 159/76 96-99 GENERAL: awake and alert, NAD HEAD: AT/NC EYES: PERRL, EOMI, sclera anicteric, conjunctiva clear. No ptosis. NECK:Supple, no jvd LUNGS:on Bipap., diminshed breath sounds. HEART: RRR, S1S2 ABDOMEN: Soft,obese NT, ND, BS(+) EXTREMITIES: 2+ pulses, warm, well-perfused, no edema. NEUROLOGICAL: Cranial nerves II through XII grossly intact. Normal speech, gait not observed. Laboratory Results - last 24 hr 03/11/17 03/11/17 06:30 06:30 WBC 13.2 H RBC 3.89 L Hgb 11.7 Hct 35.7 MCV 91.7 MCHC 32.8 RDW 15.7 Plt Count 136 MPV 8.7 Neutrophils % 93.6 H Lymphocytes % 2.1 L D Monocytes % 4.2 Eosinophils % 0.0 Basophils % 0.1 Sodium 142 Potassium 4.4 Chloride 106 Carbon Dioxide 27 Anion Gap 9 BUN 39 H Creatinine 1.1 Random Glucose 154 H Calcium 8.2 L Active Medications Generic Name Dose Route Start Last Admin Trade Name Freq PRN Reason Stop Dose Admin Albuterol/Ipratropium 1 amp 03/08/17 06:00 03/11/17 12:17 Duoneb - NEB 1 amp QIDR [facility] Administration Amlodipine Besylate 5 mg 03/08/17 10:00 03/11/17 10:17 Norvasc - PO 5 mg DAILY [facility] Administration Atorvastatin Calcium 10 mg 03/09/17 22:00 03/10/17 21:43 Lipitor - PO 10 mg HS [facility] Administration Dipyridamole/Aspirin 1 combo 03/08/17 10:00 03/11/17 10:17 Aggrenox - PO 1 combo BID [facility] Administration Heparin Sodium (Porcine) 5,000 unit 03/08/17 22:00 03/11/17 10:18 Heparin - SQ 5,000 unit BID [facility] Administration Piperacillin Sod/Tazobactam Sod 50 mls @ 100 mls/hr 03/08/17 18:00 03/11/17 09: 17 Zosyn 2.25gm Ivpb (Pre-Docked) IVPB 100 mls/hr Q8H-IV [facility] Administration Protocol Lactobacillus Acidophilus 1 tab 03/11/17 22:00 Bacid - PO BID [facility] Levetiracetam 750 mg 03/08/17 10:00 03/11/17 10:17 Keppra - PO 750 mg BID [facility] Administration Methylprednisolone Sodium Succinate 30 mg 03/11/17 09:30 03/11/17 10:18 Solu-Medrol - IVPB 30 mg BID [facility] Administration Montelukast Sodium 10 mg 03/08/17 22:00 03/10/17 21:43 Singulair - PO 10 mg HS [facility] Administration Tamsulosin HCl 0.4 mg 03/08/17 08:30 03/11/17 09:30 Flomax - PO 0.4 mg DAILY@0830 [facility] Administration ASSESSMENT/PLAN: 89 year old male with significant PMHx of COPD, CHF, CAD, COPD, CVA, brought to the emergency room by EMS due to shortness of breath, found to be in acute respiratory failure and hypotensive. Admitted for sepsis secondary to pneumonia. Problem List - Problems (1) Sepsis Assessment/Plan: * secondary to PNA * WBC trending down * Blood cultures show Coag negative staph * Will continue Zosyn and Azithromycin * ID consult appreciated. * repeat CBC in AM (2) Pneumonia Assessment/Plan: * Continue with current Abx regimen. * repeat CXR in AM * Aspiration precautions. Qualifiers: (3) COPD (chronic obstructive pulmonary disease) Assessment/Plan: * Continue supplemental O2 * Bipap PRN * Continue solumedrol IV 40mg Q8H * Continue Singulair * Duoneb QID * Pulmonary consult appreciated. (4) YEISON (acute kidney injury) Assessment/Plan: * Improved. * Back to baseline. * Will continue to trend. (5) CHF (congestive heart failure) Assessment/Plan: * Echo-no sig structural heart disease, normal LV function, no sig valvular abnl , no change from echo 2014 * Cardio consult appreciated * Given 40mg IV lasix x1 * Will restart ARB as renal function at baseline. (6) CVA (cerebral vascular accident) Assessment/Plan: * Continue Aggrenox and Lipitor. (7) CAD (coronary artery disease) Assessment/Plan: * Continue Lipitor and aggrenox * NO BB 2/2 h/o conduction disease. (8) HTN (hypertension) Assessment/Plan: * Continue Amlodipine 5mg PO daily * Will resume ARB as YEISON has resolved. Visit type - Emergency Visit Emergency Visit: Yes ED Registration Date: 03/08/17 Care time: The patient presented to the Emergency Department on the above date and was hospitalized for further evaluation of their emergent condition. - New Patient This patient is new to me today: No - Critical Care Critical Care patient: No - Discharge Referral Referred to [facility] Med P.C.: No
[2017-03-11] MEDS: CHOLESTYRAMINE/SUCROSE 4 GM PACKET PO SCH ×2 (18:17→21:43)
[2017-03-11] MEDS: ATORVASTATIN CA 10 MG TABLET (FP) PO SCH (21:41)
[2017-03-11] MEDS: MONTELUKAST NA 10 MG TABLET PO SCH (21:42)
[2017-03-11] MEDS: LACTOBACILLUS ACIDOPHILUS 1 EACH TAB (FP) PO SCH (21:42)
[2017-03-12] MEDS: PIPERACILLIN/TAZOB 2.25 GM 50 ML IVPB SCH ×3 (02:38→17:50)
[2017-03-12] MEDS: ALBUTEROL SO4 2.5/IPRATROPIUM 0.5 INH SOL 3 ML VIAL.NEB. NEB SCH ×4 (06:15→17:11)
[2017-03-12 07:59] LABS: MCH 30.6 pg (25.7-33.7); MCHC 33.9 g/dl (32.0-35.9); MEAN CELL VOLUME 90.4 fl (80-96); MEAN PLT VOLUME 8.4 fl (7.5-11.1); PLATELET COUNT 132 K/MM3 (134-434); RDW 15.3 % (11.9-15.9); WHITE BLOOD COUNT 9.8 K/mm3 (4.0-10.0)
[2017-03-12 08:23] LABS: ANION GAP 9 (8-16); CO2 28 mmol/L (21-32); CREATININE 1.2 mg/dL (0.7-1.3); GLUCOSE,RANDOM 137 mg/dL (74-106)
[2017-03-12] MEDS: methylPREDNISolone NA SUCC 40 MG/1 ML VIAL IVPB SCH ×3 (10:01→21:15)
[2017-03-12] MEDS: LOSARTAN POTASSIUM 50 MG TABLET (FP) PO SCH (10:02)
[2017-03-12] MEDS: CHOLESTYRAMINE/ASPARTAME 4 GM PACKET PO SCH ×2 (10:02→21:51)
[2017-03-12] MEDS: HEPARIN NA (PORCINE) 5,000 UNITS/ML 1ML VIAL SQ SCH ×2 (10:02→21:52)
[2017-03-12] MEDS: ASPIRIN/DIPYRIDAMOLE 25 MG/200 MG CAPSULE (FP) PO SCH ×2 (10:02→21:51)
[2017-03-12] MEDS: LACTOBACILLUS ACIDOPHILUS 1 EACH TAB (FP) PO SCH ×2 (10:02→21:51)
[2017-03-12] MEDS: TAMSULOSIN HCL 0.4 MG CAP.ER.24H (FP) PO SCH (10:02)
[2017-03-12] MEDS: levETIRAcetam 250 MG TABLET (FP) PO SCH ×2 (10:02→21:51)
[2017-03-12] MEDS: amLODIPine BESYLATE 5 MG TABLET (FP) PO SCH (10:03)
[2017-03-12 10:06] LABS: PLATELET ESTIMATE SLT DECREASED (NORMAL)
--- NOTE | 2017-03-12 10:18 | PN ---
Progress Note, Physician History of Present Illness: seen and examined today in nad. states he is feeling slightly better today. no overnight events. no new complaints. - Current Medication List Current Medications: Active Medications Albuterol/Ipratropium (Duoneb -) 1 amp NEB QIDR [facility] Last Admin: 03/12/17 06:15 Dose: 1 amp Amlodipine Besylate (Norvasc -) 5 mg PO DAILY [facility] Last Admin: 03/12/17 10:03 Dose: 5 mg Atorvastatin Calcium (Lipitor -) 10 mg PO HS [facility] Last Admin: 03/11/17 21:41 Dose: 10 mg Cholestyramine Resin (Questran Light Packet -) 4 gm PO BID [facility] Last Admin: 03/12/17 10:02 Dose: 4 gm Dipyridamole/Aspirin (Aggrenox -) 1 combo PO BID [facility] Last Admin: 03/12/17 10:02 Dose: 1 combo Heparin Sodium (Porcine) (Heparin -) 5,000 unit SQ BID [facility] Last Admin: 03/12/17 10:02 Dose: 5,000 unit Piperacillin Sod/Tazobactam Sod (Zosyn 2.25gm Ivpb (Pre-Docked)) 50 mls @ 100 mls/hr IVPB Q8H-IV [facility] PRN Reason: Protocol Last Admin: 03/12/17 10:02 Dose: 100 mls/hr Lactobacillus Acidophilus (Bacid -) 1 tab PO BID [facility] Last Admin: 03/12/17 10:02 Dose: 1 tab Levetiracetam (Keppra -) 750 mg PO BID [facility] Last Admin: 03/12/17 10:02 Dose: 750 mg Losartan Potassium (Cozaar -) 50 mg PO DAILY [facility] Last Admin: 03/12/17 10:02 Dose: 50 mg Methylprednisolone Sodium Succinate (Solu-Medrol -) 30 mg IVPB BID [facility] Last Admin: 03/12/17 10:01 Dose: 30 mg Montelukast Sodium (Singulair -) 10 mg PO HS [facility] Last Admin: 03/11/17 21:42 Dose: 10 mg Tamsulosin HCl (Flomax -) 0.4 mg PO DAILY@0830 [facility] Last Admin: 03/12/17 10:02 Dose: 0.4 mg - Objective Vital Signs: Vital Signs Temperature 97.8 F 03/11/17 16:00 Pulse Rate 62 03/12/17 00:40 Respiratory Rate 18 03/11/17 21:00 Blood Pressure 163/71 03/11/17 16:00 O2 Sat by Pulse Oximetry (%) 95 03/12/17 00:40 Constitutional: Yes: No Distress, Calm Eyes: Yes: Conjunctiva Clear, EOM Intact, PERRL HENT: Yes: Atraumatic, Normocephalic Neck: Yes: Supple, Trachea Midline Cardiovascular: Yes: Regular Rate and Rhythm, S1, S2. No: Bradycardia, Tachycardia, Pulse Irregular, Bruit, JVD, Gallop, Murmur, Rub, S3, S4, Varicosities Respiratory: Yes: Regular, Cough, Wheezes (throughout). No: Rales, Rhonchi Gastrointestinal: Yes: Normal Bowel Sounds, Soft. No: Distention, Tenderness Musculoskeletal: Yes: Muscle Weakness Edema: No Peripheral Pulses WNL: Yes Peripheral Pulses: Left Doralis Pedis: 2+, Right Dorsalis Pedis: 2+ Neurological: Yes: Alert, Oriented Psychiatric: Yes: Alert, Oriented Labs: CBC, BMP 03/12/17 06:30 03/12/17 06:30 INR, PTT INR 0.92 (0.82-1.09) 03/08/17 03:10 - ....Imaging Chest X-ray: Report Reviewed, Image Reviewed EKG: Report Reviewed, Image Reviewed Other: Report Reviewed, Image Reviewed Assessment/Plan 89 year old man with a history of HTN, HLD, CAD prior stents, Chronic HF ( unknown type), past CVA/TIA, COPD, Prostate Ca, PVD admitted sob, AMS. SOB-wheezing throughout, no rales on exam, appears primarily secondary to COPD -echo showed no sig structural heart disease, normal LV function, no sig valvular abnl, no change from echo 2015 -despite elevated bnp pt clinically and radiographically does not appear in significant CHF -he was given 1 dose of IV lasix yesterday, would hold off on further lasix at this time, bun/creat verenice today -would dose Lasix prn at this point -pulmonary f/up AMS-unclear etiology, h/o CVA -awake and alert currently -as per PMD CAD-troponin did not significantly trend up, unlikely type 1 NV -currently on Aggrenox, ok to use this for CAD (ASA) -no bblocker given h/o sig conduction disease -cont Lipitor HTN-mildly above snf goal -Losartan was resumed, monitor for adequate BP response, monitor creatinine -cont norvasc HLD -cont Lipitor Carotid stenosis-with reported stent 2 years ago -cont asa and statin
--- NOTE | 2017-03-12 12:53 | PN ---
Progress Note, Physician History of Present Illness: improving feeling better on bipap - Current Medication List Current Medications: Active Medications Albuterol/Ipratropium (Duoneb -) 1 amp NEB QIDR [facility] Last Admin: 03/12/17 12:10 Dose: 1 amp Amlodipine Besylate (Norvasc -) 5 mg PO DAILY [facility] Last Admin: 03/12/17 10:03 Dose: 5 mg Atorvastatin Calcium (Lipitor -) 10 mg PO HS [facility] Last Admin: 03/11/17 21:41 Dose: 10 mg Cholestyramine Resin (Questran Light Packet -) 4 gm PO BID [facility] Last Admin: 03/12/17 10:02 Dose: 4 gm Dipyridamole/Aspirin (Aggrenox -) 1 combo PO BID [facility] Last Admin: 03/12/17 10:02 Dose: 1 combo Heparin Sodium (Porcine) (Heparin -) 5,000 unit SQ BID [facility] Last Admin: 03/12/17 10:02 Dose: 5,000 unit Piperacillin Sod/Tazobactam Sod (Zosyn 2.25gm Ivpb (Pre-Docked)) 50 mls @ 100 mls/hr IVPB Q8H-IV [facility] PRN Reason: Protocol Last Admin: 03/12/17 10:02 Dose: 100 mls/hr Lactobacillus Acidophilus (Bacid -) 1 tab PO BID [facility] Last Admin: 03/12/17 10:02 Dose: 1 tab Levetiracetam (Keppra -) 750 mg PO BID [facility] Last Admin: 03/12/17 10:02 Dose: 750 mg Losartan Potassium (Cozaar -) 50 mg PO DAILY [facility] Last Admin: 03/12/17 10:02 Dose: 50 mg Methylprednisolone Sodium Succinate (Solu-Medrol -) 30 mg IVPB BID [facility] Last Admin: 03/12/17 10:01 Dose: 30 mg Montelukast Sodium (Singulair -) 10 mg PO HS [facility] Last Admin: 03/11/17 21:42 Dose: 10 mg Tamsulosin HCl (Flomax -) 0.4 mg PO DAILY@0830 [facility] Last Admin: 03/12/17 10:02 Dose: 0.4 mg - Objective Vital Signs: Vital Signs Temperature 97.8 F 03/11/17 16:00 Pulse Rate 67 03/12/17 10:10 Respiratory Rate 18 03/11/17 21:00 Blood Pressure 163/71 03/11/17 16:00 O2 Sat by Pulse Oximetry (%) 98 03/12/17 10:10 Constitutional: Yes: No Distress, Calm Cardiovascular: Yes: S1, S2 Respiratory: Yes: On BiPap, Other Gastrointestinal: Yes: Normal Bowel Sounds, Soft Musculoskeletal: Yes: WNL Extremities: Yes: WNL Neurological: Yes: Alert, Oriented Psychiatric: Yes: Alert Labs: CBC, BMP 03/12/17 06:30 03/12/17 06:30 INR, PTT INR 0.92 (0.82-1.09) 03/08/17 03:10 Assessment/Plan Problem List - Problems (1) COPD (chronic obstructive pulmonary disease) Code(s): J44.9 - CHRONIC OBSTRUCTIVE PULMONARY DISEASE, UNSPECIFIED (2) Elevated troponin Code(s): R74.8 - ABNORMAL LEVELS OF OTHER SERUM ENZYMES (3) Pneumonia Code(s): J18.9 - PNEUMONIA, UNSPECIFIED ORGANISM (4) Acute respiratory failure Code(s): J96.00 - ACUTE RESPIRATORY FAILURE, UNSP W HYPOXIA OR HYPERCAPNIA blood cx result noted probably a contaminant plan abx resp support repeat blood cx negative continue abx incentive shelby await for final plan before deescalating
--- NOTE | 2017-03-12 13:17 | PN ---
Progress Note, Physician History of Present Illness: Pt seen and examined at bedside. He is currently on BIPAP. - Current Medication List Current Medications: Active Medications Albuterol/Ipratropium (Duoneb -) 1 amp NEB QIDR [facility] Last Admin: 03/12/17 12:10 Dose: 1 amp Amlodipine Besylate (Norvasc -) 5 mg PO DAILY [facility] Last Admin: 03/12/17 10:03 Dose: 5 mg Atorvastatin Calcium (Lipitor -) 10 mg PO HS [facility] Last Admin: 03/11/17 21:41 Dose: 10 mg Cholestyramine Resin (Questran Light Packet -) 4 gm PO BID [facility] Last Admin: 03/12/17 10:02 Dose: 4 gm Dipyridamole/Aspirin (Aggrenox -) 1 combo PO BID [facility] Last Admin: 03/12/17 10:02 Dose: 1 combo Heparin Sodium (Porcine) (Heparin -) 5,000 unit SQ BID [facility] Last Admin: 03/12/17 10:02 Dose: 5,000 unit Piperacillin Sod/Tazobactam Sod (Zosyn 2.25gm Ivpb (Pre-Docked)) 50 mls @ 100 mls/hr IVPB Q8H-IV [facility] PRN Reason: Protocol Last Admin: 03/12/17 10:02 Dose: 100 mls/hr Lactobacillus Acidophilus (Bacid -) 1 tab PO BID [facility] Last Admin: 03/12/17 10:02 Dose: 1 tab Levetiracetam (Keppra -) 750 mg PO BID [facility] Last Admin: 03/12/17 10:02 Dose: 750 mg Losartan Potassium (Cozaar -) 50 mg PO DAILY [facility] Last Admin: 03/12/17 10:02 Dose: 50 mg Methylprednisolone Sodium Succinate (Solu-Medrol -) 30 mg IVPB BID [facility] Last Admin: 03/12/17 10:01 Dose: 30 mg Montelukast Sodium (Singulair -) 10 mg PO HS [facility] Last Admin: 03/11/17 21:42 Dose: 10 mg Tamsulosin HCl (Flomax -) 0.4 mg PO DAILY@0830 [facility] Last Admin: 03/12/17 10:02 Dose: 0.4 mg - Objective Vital Signs: Vital Signs Temperature 97.8 F 03/11/17 16:00 Pulse Rate 67 03/12/17 10:10 Respiratory Rate 18 06/27/17 21:00 Blood Pressure 163/71 03/11/17 16:00 O2 Sat by Pulse Oximetry (%) 98 03/12/17 10:10 Constitutional: Yes: Calm Eyes: Yes: Conjunctiva Clear HENT: Yes: Atraumatic Neck: Yes: Supple Cardiovascular: Yes: S1, S2 Respiratory: Yes: On BiPap, Wheezes Gastrointestinal: Yes: Soft, Abdomen, Obese Genitourinary: Yes: Sal Present Musculoskeletal: Yes: Muscle Weakness Edema: LLE: Trace, RLE: Trace Neurological: Yes: Oriented Psychiatric: Yes: Oriented Labs: CBC, BMP 03/12/17 06:30 03/12/17 06:30 INR, PTT INR 0.92 (0.82-1.09) 03/08/17 03:10 Problem List - Problems (1) YEISON (acute kidney injury) Code(s): N17.9 - ACUTE KIDNEY FAILURE, UNSPECIFIED (2) COPD (chronic obstructive pulmonary disease) Code(s): J44.9 - CHRONIC OBSTRUCTIVE PULMONARY DISEASE, UNSPECIFIED (3) Sepsis Code(s): A41.9 - SEPSIS, UNSPECIFIED ORGANISM Assessment/Plan Current Medications Generic Name Dose Route Start Last Admin Trade Name Freq PRN Reason Stop Dose Admin Albuterol/Ipratropium 1 amp 03/08/17 06:00 03/12/17 12:10 Duoneb - NEB 1 amp QIDR [facility] Administration Amlodipine Besylate 5 mg 03/08/17 10:00 03/12/17 10:03 Norvasc - PO 5 mg DAILY [facility] Administration Atorvastatin Calcium 10 mg 03/09/17 22:00 03/11/17 21:41 Lipitor - PO 10 mg HS [facility] Administration Cholestyramine Resin 4 gm 03/12/17 10:00 03/12/17 10:02 Questran Light Packet - PO 4 gm BID [facility] Administration Dipyridamole/Aspirin 1 combo 03/08/17 10:00 03/12/17 10:02 Aggrenox - PO 1 combo BID [facility] Administration Heparin Sodium (Porcine) 5,000 unit 03/08/17 22:00 03/12/17 10:02 Heparin - SQ 5,000 unit BID [facility] Administration Piperacillin Sod/Tazobactam Sod 50 mls @ 100 mls/hr 03/08/17 18:00 03/12/17 10: 02 Zosyn 2.25gm Ivpb (Pre-Docked) IVPB 100 mls/hr Q8H-IV [facility] Administration Protocol Lactobacillus Acidophilus 1 tab 03/11/17 22:00 03/12/17 10:02 Bacid - PO 1 tab BID [facility] Administration Levetiracetam 750 mg 03/08/17 10:00 03/12/17 10:02 Keppra - PO 750 mg BID [facility] Administration Losartan Potassium 50 mg 03/12/17 10:00 03/12/17 10:02 Cozaar - PO 50 mg DAILY [facility] Administration Methylprednisolone Sodium Succinate 30 mg 03/11/17 09:30 03/12/17 10:01 Solu-Medrol - IVPB 30 mg BID [facility] Administration Montelukast Sodium 10 mg 03/08/17 22:00 03/11/17 21:42 Singulair - PO 10 mg HS [facility] Administration Tamsulosin HCl 0.4 mg 03/08/17 08:30 03/12/17 10:02 Flomax - PO 0.4 mg DAILY@0830 [facility] Administration Impression 1. YEISON 2. Sepsis 3. hx CHF 4. COPD 5. CAD 6. hx CVA 7. anemia Plan - renal function is stabilizing - repeat labs in am - monitor response to lasix - repeat labs in am - will follow pt - cont with cristopher Avelar
--- NOTE | 2017-03-12 14:08 | PN ---
Progress Note (short form) - Note Progress Note: PULMONARY VSS/AFEBRILE FAMILY PRESENT N/C O2 5L/M ANICTERIC SCATTERED RHONCHI S1S2 BS+ SOFT 1+ EDEMA LABS/MEDS/IMAGING/MICRO/REVIEWED (1) COPD (chronic obstructive pulmonary disease) Code(s): J44.9 - CHRONIC OBSTRUCTIVE PULMONARY DISEASE, UNSPECIFIED (2) Elevated troponin Code(s): R74.8 - ABNORMAL LEVELS OF OTHER SERUM ENZYMES (3) Pneumonia Code(s): J18.9 - PNEUMONIA, UNSPECIFIED ORGANISM (4) Acute respiratory failure Code(s): J96.00 - ACUTE RESPIRATORY FAILURE, UNSP W HYPOXIA OR HYPERCAPNIA 50% VM O2 when not on bipap NIPPV if respiratory status worsens Aspiration precautions BD TX ABX Medrol DNR/DNI Elizabeth PELLETIER MD
--- NOTE | 2017-03-12 15:27 | PN ---
Physical Exam: SUBJECTIVE: Patient seen and examined at bedside. No overnight events. No new complaints. Breathing has improved. Continues to require bipap. Denies CP,NAVARRETE, palpitations, abd. pain, N/V OBJECTIVE: Vital Signs Period Temp Pulse Resp BP Sys/Bush Pulse Ox Last 24 Hr 97.8 F-98.0 F 62-73 16-20 151-163/61-71 95-98 GENERAL: awake and alert, NAD HEAD: AT/NC EYES: PERRL, EOMI, sclera anicteric, conjunctiva clear. No ptosis. NECK:Supple, no jvd LUNGS:on Bipap.,CTAB HEART: RRR, S1S2 ABDOMEN: Soft,obese NT, ND, BS(+) EXTREMITIES: 2+ pulses, warm, well-perfused, no edema. NEUROLOGICAL: Cranial nerves II through XII grossly intact. Normal speech, gait not observed. Laboratory Results - last 24 hr 03/12/17 03/12/17 06:30 06:30 WBC 9.8 RBC 3.90 L Hgb 11.9 Hct 35.2 L MCV 90.4 MCHC 33.9 RDW 15.3 Plt Count 132 L MPV 8.4 Neutrophils % 87.0 H Lymphocytes % 6.0 L D Monocytes % 4.0 Eosinophils % 0.0 Basophils % 0.0 Band Neutrophils 3.0 D Differential Comment Manual diff done Platelet Estimate Slt decreased Platelet Comment No clumping noted Sodium 142 Potassium 4.2 Chloride 105 Carbon Dioxide 28 Anion Gap 9 BUN 41 H Creatinine 1.2 Random Glucose 137 H Calcium 8.0 L Active Medications Generic Name Dose Route Start Last Admin Trade Name Aaronq PRN Reason Stop Dose Admin Albuterol/Ipratropium 1 amp 03/08/17 06:00 03/12/17 12:10 Duoneb - NEB 1 amp QIDR [facility] Administration Amlodipine Besylate 5 mg 03/08/17 10:00 03/12/17 10:03 Norvasc - PO 5 mg DAILY [facility] Administration Atorvastatin Calcium 10 mg 03/09/17 22:00 03/11/17 21:41 Lipitor - PO 10 mg HS [facility] Administration Cholestyramine Resin 4 gm 03/12/17 10:00 03/12/17 10:02 Questran Light Packet - PO 4 gm BID [facility] Administration Dipyridamole/Aspirin 1 combo 03/08/17 10:00 03/12/17 10:02 Aggrenox - PO 1 combo BID [facility] Administration Heparin Sodium (Porcine) 5,000 unit 03/08/17 22:00 03/12/17 10:02 Heparin - SQ 5,000 unit BID [facility] Administration Piperacillin Sod/Tazobactam Sod 50 mls @ 100 mls/hr 03/08/17 18:00 03/12/17 10: 02 Zosyn 2.25gm Ivpb (Pre-Docked) IVPB 100 mls/hr Q8H-IV [facility] Administration Protocol Lactobacillus Acidophilus 1 tab 03/11/17 22:00 03/12/17 10:02 Bacid - PO 1 tab BID [facility] Administration Levetiracetam 750 mg 03/08/17 10:00 03/12/17 10:02 Keppra - PO 750 mg BID [facility] Administration Losartan Potassium 50 mg 03/12/17 10:00 03/12/17 10:02 Cozaar - PO 50 mg DAILY [facility] Administration Methylprednisolone Sodium Succinate 40 mg 03/12/17 15:00 Solu-Medrol - IVPB Q6H-IV [facility] Montelukast Sodium 10 mg 03/08/17 22:00 03/11/17 21:42 Singulair - PO 10 mg HS [facility] Administration Tamsulosin HCl 0.4 mg 03/08/17 08:30 03/12/17 10:02 Flomax - PO 0.4 mg DAILY@0830 [facility] Administration ASSESSMENT/PLAN: 89 year old male with significant PMHx of COPD, CHF, CAD, COPD, CVA, brought to the emergency room by EMS due to shortness of breath, found to be in acute respiratory failure and hypotensive. Admitted for sepsis secondary to pneumonia Problem List - Problems (1) Sepsis Assessment/Plan: * secondary to PNA * WBC trending down * Repeat Blood cultures (-) * Will continue Zosyn and Azithromycin * ID consult appreciated. * repeat CBC in AM (2) Pneumonia Assessment/Plan: * Continue with current Abx regimen. * repeat CXR in AM * Aspiration precautions. Qualifiers: (3) COPD (chronic obstructive pulmonary disease) Assessment/Plan: * Continue supplemental O2 * Bipap PRN * Continue solumedrol IV 40mg Q6H * Continue Singulair * Duoneb QID * Pulmonary consult appreciated. (4) YEISON (acute kidney injury) Assessment/Plan: * Improved. * Back to baseline. * Will continue to trend. (5) CHF (congestive heart failure) Assessment/Plan: * Echo-no sig structural heart disease, normal LV function, no sig valvular abnl , no change from echo 2015 * Cardio consult appreciated * Losartan 50mg PO daily. (6) CVA (cerebral vascular accident) Assessment/Plan: * Continue Aggrenox and Lipitor. * Keppra 750mg PO BID (7) CAD (coronary artery disease) Assessment/Plan: * Continue Lipitor and aggrenox * NO BB 2/2 h/o conduction disease. (8) HTN (hypertension) Assessment/Plan: * Continue Amlodipine 5mg PO daily and Losartan 50mg Po daily (9) DVT prophylaxis Assessment/Plan: * Heparin 5000 units BID SQ Visit type - Emergency Visit Emergency Visit: Yes ED Registration Date: 03/08/17 Care time: The patient presented to the Emergency Department on the above date and was hospitalized for further evaluation of their emergent condition. - New Patient This patient is new to me today: No - Critical Care Critical Care patient: No - Discharge Referral Referred to [facility] Med P.C.: No
--- NOTE | 2017-03-12 18:44 | PN ---
Teaching Attending Note Name of Resident: Ramiro Harley ATTENDING PHYSICIAN STATEMENT I saw and evaluated the patient. I reviewed the resident's note and discussed the case with the resident. I agree with the resident's findings and plan as documented. SUBJECTIVE: seen at 12 pm. SOB is better , denies any abd pain. has diarrhea OBJECTIVE: NAD , awake,alert , cooperative CV: RRR Lungs: good air entry . clear b/l Abd : sfdot, decreased breath sounds , obese . Ext : no edema ASSESSMENT AND PLAN: 89 y/o gentleman with h/o COPD, CHF,HTN, CAD, COPD, CVA who presneted with worsening SOBand was found to have acute resp failure due to acute COPD exacerbation and possible aspiration PNA 1- Acute resp failure due to COPD exacerbation and possible aspiration PNA improved clinically, but still requires BIPAP - cont BIPAP - cont Zosyn - cont steroid taper and Nebs - looks euvolemic , no evidence of acute CHF 2- YEISON : improved . renal US reviewed. stable cr. 3- h/o CAD : cont aggrenox . NOt on BB due to conduction abn appreciate CArd input 4- Dysphagia : with possible motility abnormality on MBS . - follow esophageogram results - Even if he needs EGD , Resp status makes it too risky at this point 5- HLOC OB to chair
[2017-03-12] MEDS: MONTELUKAST NA 10 MG TABLET PO SCH (21:51)
[2017-03-12] MEDS: ATORVASTATIN CA 10 MG TABLET (FP) PO SCH (21:51)
[2017-03-13] MEDS ORDERED: PT OWN MED DRAWER 7, Y5N ONE ×2 (01:29→11:17)
[2017-03-13] MEDS: PIPERACILLIN/TAZOB 2.25 GM 50 ML IVPB SCH ×3 (01:59→17:23)
[2017-03-13] MEDS: methylPREDNISolone NA SUCC 40 MG/1 ML VIAL IVPB SCH ×3 (02:03→17:22)
[2017-03-13] MEDS: ALBUTEROL SO4 2.5/IPRATROPIUM 0.5 INH SOL 3 ML VIAL.NEB. NEB SCH ×5 (06:03→23:04)
[2017-03-13 07:02] LABS: ANION GAP 9 (8-16); CALCIUM 8.5 mg/dL (8.5-10.1); CO2 28 mmol/L (21-32); CREATININE 1.2 mg/dL (0.7-1.3); GLUCOSE,RANDOM 150 mg/dL (74-106)
[2017-03-13 07:07] LABS: MCH 30.2 pg (25.7-33.7); MCHC 33.1 g/dl (32.0-35.9); MEAN CELL VOLUME 91.3 fl (80-96); MEAN PLT VOLUME 8.4 fl (7.5-11.1); PLATELET COUNT 140 K/MM3 (134-434); RDW 15.7 % (11.9-15.9); WHITE BLOOD COUNT 18.7 K/mm3 (4.0-10.0)
[2017-03-13] MEDS: LOSARTAN POTASSIUM 50 MG TABLET (FP) PO SCH ×2 (07:56→11:22)
[2017-03-13] MEDS: amLODIPine BESYLATE 5 MG TABLET (FP) PO SCH ×2 (07:56→11:23)
[2017-03-13] MEDS: TAMSULOSIN HCL 0.4 MG CAP.ER.24H (FP) PO SCH (08:49)
--- NOTE | 2017-03-13 09:08 | PN ---
Progress Note (short form) - Note Progress Note: Awake and responsive on BiPAP. FiO2 reduced to 30% from 50%. No documented acute events overnight. Intake & Output 03/10/17 03/11/17 03/12/17 03/13/17 23:59 23:59 23:59 23:59 Intake Total 1340 1050 450 150 Output Total 1450 1902 Balance -110 -852 450 150 Last Vital Signs Temp Pulse Resp BP Pulse Ox 98.0 F 66 18 190/71 95 03/13/17 06:00 03/13/17 06:00 03/13/17 06:00 03/13/17 06:00 03/13/17 03:00 Active Medications Albuterol/Ipratropium (Duoneb -) 1 amp NEB QIDR [facility] Last Admin: 03/13/17 06:03 Dose: 1 amp Amlodipine Besylate (Norvasc -) 5 mg PO DAILY [facility] Last Admin: 03/13/17 07:56 Dose: 5 mg Atorvastatin Calcium (Lipitor -) 10 mg PO HS [facility] Last Admin: 03/12/17 21:51 Dose: 10 mg Cholestyramine Resin (Questran Light Packet -) 4 gm PO BID [facility] Last Admin: 03/12/17 21:51 Dose: 4 gm Dipyridamole/Aspirin (Aggrenox -) 1 combo PO BID [facility] Last Admin: 03/12/17 21:51 Dose: 1 combo Heparin Sodium (Porcine) (Heparin -) 5,000 unit SQ BID [facility] Last Admin: 03/12/17 21:52 Dose: 5,000 unit Piperacillin Sod/Tazobactam Sod (Zosyn 2.25gm Ivpb (Pre-Docked)) 50 mls @ 100 mls/hr IVPB Q8H-IV [facility] PRN Reason: Protocol Last Admin: 03/13/17 01:59 Dose: 100 mls/hr Lactobacillus Acidophilus (Bacid -) 1 tab PO BID [facility] Last Admin: 03/12/17 21:51 Dose: 1 tab Levetiracetam (Keppra -) 750 mg PO BID [facility] Last Admin: 03/12/17 21:51 Dose: 750 mg Losartan Potassium (Cozaar -) 50 mg PO DAILY [facility] Last Admin: 03/13/17 07:56 Dose: 50 mg Methylprednisolone Sodium Succinate (Solu-Medrol -) 40 mg IVPB Q6H-IV [facility] Last Admin: 03/13/17 08:49 Dose: 40 mg Montelukast Sodium (Singulair -) 10 mg PO HS [facility] Last Admin: 03/12/17 21:51 Dose: 10 mg Tamsulosin HCl (Flomax -) 0.4 mg PO DAILY@0830 [facility] Last Admin: 03/13/17 08:49 Dose: 0.4 mg Constitutional: Yes: Awake and responsive Eyes: Yes: Conjunctiva Clear HENT: Yes: Atraumatic, Normocephalic Neck: Yes: Supple, Trachea Midline Cardiovascular: Yes: Tachycardia Respiratory: Yes: Diminished, Bilateral Rhonchi, Tachypnea. No: Stridor, Wheezes ...Inspection: Yes: WNL ...Clubbing: No Gastrointestinal: Yes: Normal Bowel Sounds, Soft Musculoskeletal: Yes: WNL Extremities: Yes: WNL Edema: No Peripheral Pulses WNL: Yes Integumentary: Yes: WNL Neurological: Yes: Confusion Labs: Laboratory Results - last 24 hr 03/12/17 03/13/17 03/13/17 06:30 06:00 06:00 WBC 9.8 18.7 H D RBC 3.90 L 3.99 L Hgb 11.9 12.1 Hct 35.2 L 36.5 MCV 90.4 91.3 MCHC 33.9 33.1 RDW 15.3 15.7 Plt Count 132 L 140 MPV 8.4 8.4 Neutrophils % 87.0 H Lymphocytes % 6.0 L D Monocytes % 4.0 Eosinophils % 0.0 Basophils % 0.0 Band Neutrophils 3.0 D Differential Comment Manual diff done Platelet Estimate Slt decreased Platelet Comment No clumping noted Sodium 145 Potassium 4.7 Chloride 108 H Carbon Dioxide 28 Anion Gap 9 BUN 42 H Creatinine 1.2 Random Glucose 150 H Calcium 8.5 Problem List - Problems (1) COPD (chronic obstructive pulmonary disease) Code(s): J44.9 - CHRONIC OBSTRUCTIVE PULMONARY DISEASE, UNSPECIFIED (2) Elevated troponin Code(s): R74.8 - ABNORMAL LEVELS OF OTHER SERUM ENZYMES (3) Pneumonia Code(s): J18.9 - PNEUMONIA, UNSPECIFIED ORGANISM (4) Acute respiratory failure Code(s): J96.00 - ACUTE RESPIRATORY FAILURE, UNSP W HYPOXIA OR HYPERCAPNIA Assessment/Plan Trial of 40% VM O2 NIPPV as needed Aspiration precautions BD TX ABX Taper Medrol DNR/DNI Dr Falk Problem List - Problems (1) COPD (chronic obstructive pulmonary disease) Code(s): J44.9 - CHRONIC OBSTRUCTIVE PULMONARY DISEASE, UNSPECIFIED Qualifiers : COPD type: COPD with acute lower respiratory infection Qualified Code(s): J44.0 - Chronic obstructive pulmonary disease with acute lower respiratory infection (2) Elevated troponin Code(s): R74.8 - ABNORMAL LEVELS OF OTHER SERUM ENZYMES (3) Pneumonia Code(s): J18.9 - PNEUMONIA, UNSPECIFIED ORGANISM Qualifiers: Pneumonia type: due to unspecified organism (4) Acute respiratory failure Code(s): J96.00 - ACUTE RESPIRATORY FAILURE, UNSP W HYPOXIA OR HYPERCAPNIA
[2017-03-13] MEDS: LACTOBACILLUS ACIDOPHILUS 1 EACH TAB (FP) PO SCH ×2 (11:21→22:14)
[2017-03-13] MEDS: ASPIRIN/DIPYRIDAMOLE 25 MG/200 MG CAPSULE (FP) PO SCH ×2 (11:21→22:13)
[2017-03-13] MEDS: CHOLESTYRAMINE/ASPARTAME 4 GM PACKET PO SCH ×2 (11:23→22:15)
[2017-03-13] MEDS: HEPARIN NA (PORCINE) 5,000 UNITS/ML 1ML VIAL SQ SCH ×2 (11:23→22:14)
[2017-03-13] MEDS: levETIRAcetam 250 MG TABLET (FP) PO SCH ×2 (11:23→22:14)
--- NOTE | 2017-03-13 12:41 | PN ---
Progress Note, Physician History of Present Illness: seen and examined today in nad. states his sob is about the same as yesterday. still coughing and wheezing. no overnight events. no new complaints. - Current Medication List Current Medications: Active Medications Albuterol/Ipratropium (Duoneb -) 1 amp NEB QIDR [facility] Last Admin: 03/13/17 12:00 Dose: 1 amp Amlodipine Besylate (Norvasc -) 5 mg PO DAILY [facility] Last Admin: 03/13/17 11:23 Dose: Not Given Atorvastatin Calcium (Lipitor -) 10 mg PO HS [facility] Last Admin: 03/12/17 21:51 Dose: 10 mg Cholestyramine Resin (Questran Light Packet -) 4 gm PO BID [facility] Last Admin: 03/13/17 11:23 Dose: 4 gm Dipyridamole/Aspirin (Aggrenox -) 1 combo PO BID [facility] Last Admin: 03/13/17 11:21 Dose: 1 combo Heparin Sodium (Porcine) (Heparin -) 5,000 unit SQ BID [facility] Last Admin: 03/13/17 11:23 Dose: 5,000 unit Piperacillin Sod/Tazobactam Sod (Zosyn 2.25gm Ivpb (Pre-Docked)) 50 mls @ 100 mls/hr IVPB Q8H-IV [facility] PRN Reason: Protocol Last Admin: 03/13/17 11:23 Dose: 100 mls/hr Lactobacillus Acidophilus (Bacid -) 1 tab PO BID [facility] Last Admin: 03/13/17 11:21 Dose: 1 tab Levetiracetam (Keppra -) 750 mg PO BID [facility] Last Admin: 03/13/17 11:23 Dose: 750 mg Losartan Potassium (Cozaar -) 50 mg PO DAILY [facility] Last Admin: 03/13/17 11:22 Dose: Not Given Methylprednisolone Sodium Succinate (Solu-Medrol -) 40 mg IVPB Q8H-IV [facility] Montelukast Sodium (Singulair -) 10 mg PO [facility] Last Admin: 03/12/17 21:51 Dose: 10 mg Tamsulosin HCl (Flomax -) 0.4 mg PO DAILY@0830 [facility] Last Admin: 03/13/17 08:49 Dose: 0.4 mg - Objective Vital Signs: Vital Signs Temperature 98.0 F 03/13/17 06:00 Pulse Rate 66 03/13/17 06:00 Respiratory Rate 18 03/13/17 06:00 Blood Pressure 190/71 03/13/17 06:00 O2 Sat by Pulse Oximetry (%) 95 03/13/17 03:00 Constitutional: Yes: No Distress, Calm, Obese Eyes: Yes: Conjunctiva Clear, EOM Intact HENT: Yes: Atraumatic, Normocephalic Neck: Yes: Supple, Trachea Midline Cardiovascular: Yes: Regular Rate and Rhythm, S1, S2. No: Bradycardia, Tachycardia, Pulse Irregular, Bruit, JVD, Gallop, Murmur, Rub, S3, S4, Varicosities Respiratory: Yes: Regular, Cough, Wheezes. No: Rales, Rhonchi, SOB Gastrointestinal: Yes: Normal Bowel Sounds, Soft. No: Distention, Tenderness Edema: No Peripheral Pulses WNL: Yes Peripheral Pulses: Left Doralis Pedis: 2+, Right Dorsalis Pedis: 2+ Neurological: Yes: Alert, Oriented Psychiatric: Yes: Alert, Oriented Labs: CBC, BMP 03/13/17 06:00 03/13/17 06:00 INR, PTT INR 0.92 (0.82-1.09) 03/08/17 03:10 - ....Imaging Chest X-ray: Report Reviewed, Image Reviewed EKG: Report Reviewed, Image Reviewed Other: Report Reviewed, Image Reviewed Assessment/Plan 89 year old man with a history of HTN, HLD, CAD prior stents, Chronic HF ( unknown type), past CVA/TIA, COPD, Prostate Ca, PVD admitted sob, AMS. SOB-primarily secondary to COPD -still wheezing and coughing -echo showed no sig structural heart disease, normal LV function, no sig valvular abnl, no change from echo 2015 -overall euvolemic -hold off on further lasix at this time, bun/creat verenice today -dose Lasix prn -pulmonary following AMS-unclear etiology, h/o CVA -has remained awake and alert -as per PMD CAD-troponin did not significantly trend up, unlikely type 1 [place] -on Aggrenox, ok to use this for CAD (ASA) -no bblocker given h/o sig conduction disease -cont Lipitor HTN-variable but overall improving -cont Losartan and monitor creatinine -cont norvasc HLD -cont Lipitor Carotid stenosis-with reported stent 2 years ago -cont asa and statin
--- NOTE | 2017-03-13 12:42 | PN ---
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 Compensatory strategies reviewed with pt and staff, HOB elevated during and after meals, alternating solid with liquid, slow intake, small bites. Selected Entries 03/12/17 03/12/17 03/12/17 09:51 15:19 17:00 Breakfast 75% Lunch 100% Supper Temperature 98.0 F 98.7 F 03/12/17 03/12/17 03/13/17 22:00 22:35 06:00 Breakfast Lunch Supper 100% Temperature 98.4 F 98.0 F 03/13/17 11:58 Breakfast 100% Lunch Supper Temperature Laboratory Tests 03/11/17 03/12/17 03/13/17 06:30 06:30 06:00 WBC 13.2 H 9.8 18.7 H D Pt reports reduced appetite today, however, tolerating food without difficulty.
--- NOTE | 2017-03-13 14:11 | PN ---
Progress Note, Physician History of Present Illness: Pt seen and examined at bedside. He is awake and alert. He is out of bed to chair today. - Current Medication List Current Medications: Active Medications Albuterol/Ipratropium (Duoneb -) 1 amp NEB QIDR [facility] Last Admin: 03/13/17 12:00 Dose: 1 amp Amlodipine Besylate (Norvasc -) 5 mg PO DAILY [facility] Last Admin: 03/13/17 11:23 Dose: Not Given Atorvastatin Calcium (Lipitor -) 10 mg PO HS [facility] Last Admin: 03/12/17 21:51 Dose: 10 mg Cholestyramine Resin (Questran Light Packet -) 4 gm PO BID [facility] Last Admin: 03/13/17 11:23 Dose: 4 gm Dipyridamole/Aspirin (Aggrenox -) 1 combo PO BID [facility] Last Admin: 03/13/17 11:21 Dose: 1 combo Heparin Sodium (Porcine) (Heparin -) 5,000 unit SQ BID [facility] Last Admin: 03/13/17 11:23 Dose: 5,000 unit Piperacillin Sod/Tazobactam Sod (Zosyn 2.25gm Ivpb (Pre-Docked)) 50 mls @ 100 mls/hr IVPB Q8H-IV [facility] PRN Reason: Protocol Last Admin: 03/13/17 11:23 Dose: 100 mls/hr Lactobacillus Acidophilus (Bacid -) 1 tab PO BID [facility] Last Admin: 03/13/17 11:21 Dose: 1 tab Levetiracetam (Keppra -) 750 mg PO BID [facility] Last Admin: 03/13/17 11:23 Dose: 750 mg Losartan Potassium (Cozaar -) 50 mg PO DAILY [facility] Last Admin: 03/13/17 11:22 Dose: Not Given Methylprednisolone Sodium Succinate (Solu-Medrol -) 40 mg IVPB Q8H-IV [facility] Montelukast Sodium (Singulair -) 10 mg PO HS [facility] Last Admin: 03/12/17 21:51 Dose: 10 mg Tamsulosin HCl (Flomax -) 0.4 mg PO DAILY@0830 [facility] Last Admin: 03/13/17 08:49 Dose: 0.4 mg - Objective Vital Signs: Vital Signs Temperature 97.2 F L 03/13/17 10:35 Pulse Rate 56 L 03/13/17 11:50 Respiratory Rate 20 03/13/17 10:35 Blood Pressure 142/64 03/13/17 10:35 O2 Sat by Pulse Oximetry (%) 95 03/13/17 11:50 Constitutional: Yes: Calm Eyes: Yes: Conjunctiva Clear HENT: Yes: Atraumatic Neck: Yes: Supple Cardiovascular: Yes: S1, S2 Respiratory: Yes: On Nasal O2, Wheezes Gastrointestinal: Yes: Soft, Abdomen, Obese Genitourinary: Yes: WNL Musculoskeletal: Yes: WNL Edema: No Neurological: Yes: Oriented Psychiatric: Yes: Oriented Labs: CBC, BMP 03/13/17 06:00 03/13/17 06:00 INR, PTT INR 0.92 (0.82-1.09) 03/08/17 03:10 Problem List - Problems (1) YEISON (acute kidney injury) Code(s): N17.9 - ACUTE KIDNEY FAILURE, UNSPECIFIED (2) COPD (chronic obstructive pulmonary disease) Code(s): J44.9 - CHRONIC OBSTRUCTIVE PULMONARY DISEASE, UNSPECIFIED Qualifiers : COPD type: COPD with acute lower respiratory infection Qualified Code(s): J44.0 - Chronic obstructive pulmonary disease with acute lower respiratory infection (3) Sepsis Code(s): A41.9 - SEPSIS, UNSPECIFIED ORGANISM Assessment/Plan Current Medications Generic Name Dose Route Start Last Admin Trade Name Freq PRN Reason Stop Dose Admin Albuterol/Ipratropium 1 amp 03/08/17 06:00 03/13/17 12:00 Duoneb - NEB 1 amp QIDR [facility] Administration Amlodipine Besylate 5 mg 03/08/17 10:00 03/13/17 11:23 Norvasc - PO Not Given DAILY [facility] Atorvastatin Calcium 10 mg 03/09/17 22:00 03/12/17 21:51 Lipitor - PO 10 mg HS [facility] Administration Cholestyramine Resin 4 gm 03/12/17 10:00 03/13/17 11:23 Questran Light Packet - PO 4 gm BID [facility] Administration Dipyridamole/Aspirin 1 combo 03/08/17 10:00 03/13/17 11:21 Aggrenox - PO 1 combo BID [facility] Administration Heparin Sodium (Porcine) 5,000 unit 03/08/17 22:00 03/13/17 11:23 Heparin - SQ 5,000 unit BID [facility] Administration Piperacillin Sod/Tazobactam Sod 50 mls @ 100 mls/hr 03/08/17 18:00 03/13/17 11: 23 Zosyn 2.25gm Ivpb (Pre-Docked) IVPB 100 mls/hr Q8H-IV [facility] Administration Protocol Lactobacillus Acidophilus 1 tab 03/11/17 22:00 03/13/17 11:21 Bacid - PO 1 tab BID [facility] Administration Levetiracetam 750 mg 03/08/17 10:00 03/13/17 11:23 Keppra - PO 750 mg BID [facility] Administration Losartan Potassium 50 mg 03/12/17 10:00 03/13/17 11:22 Cozaar - PO Not Given DAILY [facility] Methylprednisolone Sodium Succinate 40 mg 03/13/17 18:00 Solu-Medrol - IVPB Q8H-IV [facility] Montelukast Sodium 10 mg 03/08/17 22:00 03/12/17 21:51 Singulair - PO 10 mg HS [facility] Administration Tamsulosin HCl 0.4 mg 03/08/17 08:30 03/13/17 08:49 Flomax - PO 0.4 mg DAILY@0830 [facility] Administration Impression 1. YEISON 2. Sepsis 3. hx CHF 4. COPD 5. CAD 6. hx CVA 7. anemia Plan - renal function is stable - cont current meds - will hold off lasix today - will follow pt - cont with cristopher Avelar
--- NOTE | 2017-03-13 14:23 | PN ---
Teaching Attending Note Name of Resident: Ramiro Harley ATTENDING PHYSICIAN STATEMENT I saw and evaluated the patient. I reviewed the resident's note and discussed the case with the resident. I agree with the resident's findings and plan as documented. SUBJECTIVE: seen at 8 am no fever or chills , no abd pain. SOB has improved . BP was elevated this am . had no NAVARRETE , change in vision, CP or weakness OBJECTIVE: NAD awake,alert , cooperative CV: RRR Lungs: good air entry . clear b/l Abd : soft, decreased breath sounds , obese . Ext : no edema ASSESSMENT AND PLAN: 89 y/o gentleman with h/o COPD, CHF,HTN, CAD, COPD, CVA who presented with worsening SOB and was found to have acute resp failure due to acute COPD exacerbation and possible aspiration PNA 1- Acute resp failure due to COPD exacerbation and possible aspiration PNA clinically improved. the sudden increase in WBC is likely due to steroids - BIPAP and Venti mask - cont Zosyn - cont steroid and Nebs - euvolemic . 2- YEISON: improved. stable cr. 3- HTN urgency : no sx . Steroids are likely contributing . gave his AM meds early . BP improved . 4- H/o CAD : cont aggrenox . Not on BB due to conduction abn 5- Dysphagia : with possible motility abnormality on MBS . - follow esophageogram results - high risk resp wiseman for EGD at this point 6- HLOC OB to chair
--- NOTE | 2017-03-13 15:56 | PN ---
Physical Exam: SUBJECTIVE:Patient seen and examined at bedside. No overnight events. No new complaints. Breathing has improved. Continues to require bipap. Denies CP,NAVARRETE, palpitations, abd. pain, N/V OBJECTIVE: Vital Signs Period Temp Pulse Resp BP Sys/Bush Pulse Ox Last 24 Hr 97.2 F-98.7 F 49-75 16-20 125-196/57-91 94-98 GENERAL: awake and alert, NAD HEAD: AT/NC EYES: PERRL, EOMI, sclera anicteric, conjunctiva clear. No ptosis. NECK:Supple, no jvd LUNGS:on Bipap.,CTAB HEART: RRR, S1S2 ABDOMEN: Soft,obese NT, ND, BS(+) EXTREMITIES: 2+ pulses, warm, well-perfused, no edema. NEUROLOGICAL: Cranial nerves II through XII grossly intact. Normal speech, gait not observed. Laboratory Results - last 24 hr 03/13/17 03/13/17 06:00 06:00 WBC 18.7 H D RBC 3.99 L Hgb 12.1 Hct 36.5 MCV 91.3 MCHC 33.1 RDW 15.7 Plt Count 140 MPV 8.4 Sodium 145 Potassium 4.7 Chloride 108 H Carbon Dioxide 28 Anion Gap 9 BUN 42 H Creatinine 1.2 Random Glucose 150 H Calcium 8.5 Active Medications Generic Name Dose Route Start Last Admin Trade Name Freq PRN Reason Stop Dose Admin Albuterol/Ipratropium 1 amp 03/08/17 06:00 03/13/17 12:00 Duoneb - NEB 1 amp QIDR [facility] Administration Amlodipine Besylate 5 mg 03/08/17 10:00 03/13/17 11:23 Norvasc - PO Not Given DAILY [facility] Atorvastatin Calcium 10 mg 03/09/17 22:00 03/12/17 21:51 Lipitor - PO 10 mg HS [facility] Administration Cholestyramine Resin 4 gm 03/12/17 10:00 03/13/17 11:23 Questran Light Packet - PO 4 gm BID [facility] Administration Dipyridamole/Aspirin 1 combo 03/08/17 10:00 03/13/17 11:21 Aggrenox - PO 1 combo BID [facility] Administration Heparin Sodium (Porcine) 5,000 unit 03/08/17 22:00 03/13/17 11:23 Heparin - SQ 5,000 unit BID [facility] Administration Piperacillin Sod/Tazobactam Sod 50 mls @ 100 mls/hr 03/08/17 18:00 03/13/17 11: 23 Zosyn 2.25gm Ivpb (Pre-Docked) IVPB 100 mls/hr Q8H-IV [facility] Administration Protocol Lactobacillus Acidophilus 1 tab 03/11/17 22:00 03/13/17 11:21 Bacid - PO 1 tab BID [facility] Administration Levetiracetam 750 mg 03/08/17 10:00 03/13/17 11:23 Keppra - PO 750 mg BID [facility] Administration Losartan Potassium 50 mg 03/12/17 10:00 03/13/17 11:22 Cozaar - PO Not Given DAILY [facility] Methylprednisolone Sodium Succinate 40 mg 03/13/17 18:00 Solu-Medrol - IVPB Q8H-IV [facility] Montelukast Sodium 10 mg 03/08/17 22:00 03/12/17 21:51 Singulair - PO 10 mg HS [facility] Administration Tamsulosin HCl 0.4 mg 03/08/17 08:30 03/13/17 08:49 Flomax - PO 0.4 mg DAILY@0830 [facility] Administration ASSESSMENT/PLAN: 89 year old male with significant PMHx of COPD, CHF, CAD, COPD, CVA, brought to the emergency room by EMS due to shortness of breath, found to be in acute respiratory failure and hypotensive. Admitted for sepsis secondary to pneumonia Problem List - Problems (1) Sepsis Assessment/Plan: * secondary to PNA * WBC spiked today most likely from Steroids. * Repeat Blood cultures (-) * Will continue Zosyn * ID consult appreciated. * repeat CBC in AM (2) Pneumonia Assessment/Plan: * Continue with current Abx regimen. * repeat CXR * Aspiration precautions. Qualifiers: (3) COPD (chronic obstructive pulmonary disease) Assessment/Plan: * Continue supplemental O2 * Bipap PRN * Continue solumedrol IV 40mg Q6H * Continue Singulair * Duoneb QID * Pulmonary consult appreciated. (4) YEISON (acute kidney injury) Assessment/Plan: * Improved. * Back to baseline. * Will continue to trend. (5) CHF (congestive heart failure) Assessment/Plan: * Echo-no sig structural heart disease, normal LV function, no sig valvular abnl , no change from echo 2014 * Cardio consult appreciated * Losartan 50mg PO daily. (6) CVA (cerebral vascular accident) Assessment/Plan: * Continue Aggrenox and Lipitor. * Keppra 750mg PO BID (7) CAD (coronary artery disease) Assessment/Plan: * Continue Lipitor and aggrenox * NO BB 2/2 h/o conduction disease. (8) HTN (hypertension) Assessment/Plan: * Continue Amlodipine 5mg PO daily and Losartan 50mg Po daily (9) DVT prophylaxis Assessment/Plan: * Heparin 5000 units BID SQ Visit type - Emergency Visit Emergency Visit: Yes ED Registration Date: 03/08/17 Care time: The patient presented to the Emergency Department on the above date and was hospitalized for further evaluation of their emergent condition. - New Patient This patient is new to me today: No - Critical Care Critical Care patient: No - Discharge Referral Referred to [facility] No
--- NOTE | 2017-03-13 16:21 | PN ---
Progress Note, Physician History of Present Illness: patient stable spoke with the patient still requiring resp support also patients mental status still not at par requiring bipap - Current Medication List Current Medications: Active Medications Albuterol/Ipratropium (Duoneb -) 1 amp NEB QIDR [facility] Last Admin: 03/13/17 12:00 Dose: 1 amp Amlodipine Besylate (Norvasc -) 5 mg PO DAILY [facility] Last Admin: 03/13/17 11:23 Dose: Not Given Atorvastatin Calcium (Lipitor -) 10 mg PO HS [facility] Last Admin: 03/12/17 21:51 Dose: 10 mg Cholestyramine Resin (Questran Light Packet -) 4 gm PO BID [facility] Last Admin: 03/13/17 11:23 Dose: 4 gm Dipyridamole/Aspirin (Aggrenox -) 1 combo PO BID [facility] Last Admin: 03/13/17 11:21 Dose: 1 combo Heparin Sodium (Porcine) (Heparin -) 5,000 unit SQ BID [facility] Last Admin: 03/13/17 11:23 Dose: 5,000 unit Piperacillin Sod/Tazobactam Sod (Zosyn 2.25gm Ivpb (Pre-Docked)) 50 mls @ 100 mls/hr IVPB Q8H-IV [facility] PRN Reason: Protocol Last Admin: 03/13/17 11:23 Dose: 100 mls/hr Lactobacillus Acidophilus (Bacid -) 1 tab PO BID [facility] Last Admin: 03/13/17 11:21 Dose: 1 tab Levetiracetam (Keppra -) 750 mg PO BID [facility] Last Admin: 03/13/17 11:23 Dose: 750 mg Losartan Potassium (Cozaar -) 50 mg PO DAILY [facility] Last Admin: 03/13/17 11:22 Dose: Not Given Methylprednisolone Sodium Succinate (Solu-Medrol -) 40 mg IVPB Q8H-IV [facility] Montelukast Sodium (Singulair -) 10 mg PO [facility] Last Admin: 03/12/17 21:51 Dose: 10 mg Tamsulosin HCl (Flomax -) 0.4 mg PO DAILY@0830 [facility] Last Admin: 03/13/17 08:49 Dose: 0.4 mg - Objective Vital Signs: Vital Signs Temperature 98.2 F 03/13/17 14:17 Pulse Rate 75 03/13/17 14:17 Respiratory Rate 16 03/13/17 14:17 Blood Pressure 125/57 03/13/17 14:17 O2 Sat by Pulse Oximetry (%) 95 03/13/17 11:50 Constitutional: Yes: No Distress, Calm, Obese Cardiovascular: Yes: Regular Rate and Rhythm Respiratory: Yes: On BiPap, On Nasal O2, Poor Air Entry Gastrointestinal: Yes: Normal Bowel Sounds, Soft Musculoskeletal: Yes: WNL Extremities: Yes: WNL Neurological: Yes: Alert, Other Psychiatric: Yes: Alert Labs: CBC, BMP 03/13/17 06:00 03/13/17 06:00 INR, PTT INR 0.92 (0.82-1.09) 03/08/17 03:10 Assessment/Plan Problem List - Problems (1) COPD (chronic obstructive pulmonary disease) Code(s): J44.9 - CHRONIC OBSTRUCTIVE PULMONARY DISEASE, UNSPECIFIED (2) Elevated troponin Code(s): R74.8 - ABNORMAL LEVELS OF OTHER SERUM ENZYMES (3) Pneumonia Code(s): J18.9 - PNEUMONIA, UNSPECIFIED ORGANISM (4) Acute respiratory failure Code(s): J96.00 - ACUTE RESPIRATORY FAILURE, UNSP W HYPOXIA OR HYPERCAPNIA blood cx result noted probably a contaminant plan abx resp support repeat blood cx negative continue abx incentive shelby patients wbc has jumped up could be due to steroids will await to see repeat wbc count
[2017-03-13] MEDS: ATORVASTATIN CA 10 MG TABLET (FP) PO SCH (22:14)
[2017-03-13] MEDS: MONTELUKAST NA 10 MG TABLET PO SCH (22:14)
[2017-03-14] MEDS: PIPERACILLIN/TAZOB 2.25 GM 50 ML IVPB SCH ×3 (01:24→17:26)
[2017-03-14] MEDS: methylPREDNISolone NA SUCC 40 MG/1 ML VIAL IVPB SCH ×3 (01:24→17:26)
[2017-03-14] MEDS: ALBUTEROL SO4 2.5/IPRATROPIUM 0.5 INH SOL 3 ML VIAL.NEB. NEB SCH ×4 (06:51→23:30)
[2017-03-14 08:28] LABS: ANION GAP 10 (8-16); CALCIUM 8.7 mg/dL (8.5-10.1); CO2 27 mmol/L (21-32); GLUCOSE,RANDOM 118 mg/dL (74-106)
[2017-03-14] MEDS: TAMSULOSIN HCL 0.4 MG CAP.ER.24H (FP) PO SCH (08:35)
[2017-03-14 09:33] LABS: MCH 29.9 pg (25.7-33.7); MCHC 32.6 g/dl (32.0-35.9); MEAN CELL VOLUME 91.8 fl (80-96); MEAN PLT VOLUME 8.4 fl (7.5-11.1); PLATELET COUNT 136 K/MM3 (134-434); RDW 15.5 % (11.9-15.9); WHITE BLOOD COUNT 20.9 K/mm3 (4.0-10.0)
[2017-03-14] MEDS ORDERED: PT OWN MED DRAWER 7, Y5N ONE (09:45)
[2017-03-14] MEDS: LOSARTAN POTASSIUM 50 MG TABLET (FP) PO SCH (09:57)
[2017-03-14] MEDS: LACTOBACILLUS ACIDOPHILUS 1 EACH TAB (FP) PO SCH ×2 (09:57→22:08)
[2017-03-14] MEDS: levETIRAcetam 250 MG TABLET (FP) PO SCH ×2 (09:57→22:08)
[2017-03-14] MEDS: ASPIRIN/DIPYRIDAMOLE 25 MG/200 MG CAPSULE (FP) PO SCH ×2 (09:57→22:08)
[2017-03-14] MEDS: amLODIPine BESYLATE 5 MG TABLET (FP) PO SCH (09:58)
[2017-03-14] MEDS: CHOLESTYRAMINE/ASPARTAME 4 GM PACKET PO SCH ×2 (09:58→22:08)
[2017-03-14] MEDS: HEPARIN NA (PORCINE) 5,000 UNITS/ML 1ML VIAL SQ SCH ×2 (10:01→22:07)
[2017-03-14 11:55] LABS: PLATELET ESTIMATE DECREASED (NORMAL)
--- NOTE | 2017-03-14 12:06 | PN ---
Progress Note (short form) - Note Progress Note: PULMONARY VSS/AFEBRILE N/C O2 ANICTERIC SCATTERED RHONCHI LESS S1S2 BS+ SOFT 1+ EDEMA LABS/MEDS/IMAGING/MICRO/REVIEWED (1) COPD (chronic obstructive pulmonary disease) Code(s): J44.9 - CHRONIC OBSTRUCTIVE PULMONARY DISEASE, UNSPECIFIED (2) Elevated troponin Code(s): R74.8 - ABNORMAL LEVELS OF OTHER SERUM ENZYMES (3) Pneumonia Code(s): J18.9 - PNEUMONIA, UNSPECIFIED ORGANISM (4) Acute respiratory failure Code(s): J96.00 - ACUTE RESPIRATORY FAILURE, UNSP W HYPOXIA OR HYPERCAPNIA 50% VM O2 when not on bipap NIPPV if respiratory status worsens Aspiration precautions BD TX ABX Medrol Reduced DNR/DNI R LIYAH SHARMA
--- NOTE | 2017-03-14 13:37 | PN ---
Progress Note, Physician History of Present Illness: patient still continues to be confused according to the patient does not remember what he spoke in the morning says now he feels lousy mentions that he was feeling fine in the morning - Current Medication List Current Medications: Active Medications Albuterol/Ipratropium (Duoneb -) 1 amp NEB QIDR [facility] Last Admin: 03/14/17 11:05 Dose: 1 amp Amlodipine Besylate (Norvasc -) 5 mg PO DAILY [facility] Last Admin: 03/14/17 09:58 Dose: 5 mg Atorvastatin Calcium (Lipitor -) 10 mg PO HS [facility] Last Admin: 03/13/17 22:14 Dose: 10 mg Cholestyramine Resin (Questran Light Packet -) 4 gm PO BID [facility] Last Admin: 03/14/17 09:58 Dose: 4 gm Dipyridamole/Aspirin (Aggrenox -) 1 combo PO BID [facility] Last Admin: 03/14/17 09:57 Dose: 1 combo Heparin Sodium (Porcine) (Heparin -) 5,000 unit SQ BID [facility] Last Admin: 03/14/17 10:01 Dose: 5,000 unit Piperacillin Sod/Tazobactam Sod (Zosyn 2.25gm Ivpb (Pre-Docked)) 50 mls @ 100 mls/hr IVPB Q8H-IV [facility] PRN Reason: Protocol Last Admin: 03/14/17 10:00 Dose: 100 mls/hr Lactobacillus Acidophilus (Bacid -) 1 tab PO BID [facility] Last Admin: 03/14/17 09:57 Dose: 1 tab Levetiracetam (Keppra -) 750 mg PO BID [facility] Last Admin: 03/14/17 09:57 Dose: 750 mg Losartan Potassium (Cozaar -) 50 mg PO DAILY [facility] Last Admin: 03/14/17 09:57 Dose: 50 mg Methylprednisolone Sodium Succinate (Solu-Medrol -) 20 mg IVPB Q8H-IV [facility] Montelukast Sodium (Singulair -) 10 mg PO HS [facility] Last Admin: 03/13/17 22:14 Dose: 10 mg Tamsulosin HCl (Flomax -) 0.4 mg PO DAILY@0830 [facility] Last Admin: 03/14/17 08:35 Dose: 0.4 mg - Objective Vital Signs: Vital Signs Temperature 98 F 03/14/17 08:45 Pulse Rate 66 03/14/17 11:56 Respiratory Rate 24 03/14/17 08:45 Blood Pressure 134/51 03/14/17 11:40 O2 Sat by Pulse Oximetry (%) 93 L 03/14/17 11:56 Constitutional: Yes: No Distress, Calm, Other Cardiovascular: Yes: S1, S2 Respiratory: Yes: On Nasal O2, Poor Air Entry, Rhonchi Gastrointestinal: Yes: Normal Bowel Sounds, Soft Musculoskeletal: Yes: Other Extremities: Yes: Other Edema: LLE: Trace, RLE: Trace Neurological: Yes: Alert, Oriented Psychiatric: Yes: Alert Labs: CBC, BMP 03/14/17 09:15 03/14/17 07:40 INR, PTT INR 0.92 (0.82-1.09) 03/08/17 03:10 Assessment/Plan Problem List - Problems (1) COPD (chronic obstructive pulmonary disease) Code(s): J44.9 - CHRONIC OBSTRUCTIVE PULMONARY DISEASE, UNSPECIFIED (2) Elevated troponin Code(s): R74.8 - ABNORMAL LEVELS OF OTHER SERUM ENZYMES (3) Pneumonia Code(s): J18.9 - PNEUMONIA, UNSPECIFIED ORGANISM (4) Acute respiratory failure Code(s): J96.00 - ACUTE RESPIRATORY FAILURE, UNSP W HYPOXIA OR HYPERCAPNIA blood cx result noted probably a contaminant plan will stop abx tomorrow after seeing wbc wbc slightly increased everything negative so far
--- NOTE | 2017-03-14 15:01 | PN ---
Progress Note, Physician History of Present Illness: Pt seen and examined at bedside. He is awake and alert. He is out of bed to chair. Pt still has shortness of breath, most of which is chronic. - Current Medication List Current Medications: Active Medications Albuterol/Ipratropium (Duoneb -) 1 amp NEB QIDR [facility] Last Admin: 03/14/17 11:05 Dose: 1 amp Amlodipine Besylate (Norvasc -) 5 mg PO DAILY [facility] Last Admin: 03/14/17 09:58 Dose: 5 mg Atorvastatin Calcium (Lipitor -) 10 mg PO HS [facility] Last Admin: 03/13/17 22:14 Dose: 10 mg Cholestyramine Resin (Questran Light Packet -) 4 gm PO BID [facility] Last Admin: 03/14/17 09:58 Dose: 4 gm Dipyridamole/Aspirin (Aggrenox -) 1 combo PO BID [facility] Last Admin: 03/14/17 09:57 Dose: 1 combo Heparin Sodium (Porcine) (Heparin -) 5,000 unit SQ BID [facility] Last Admin: 03/14/17 10:01 Dose: 5,000 unit Piperacillin Sod/Tazobactam Sod (Zosyn 2.25gm Ivpb (Pre-Docked)) 50 mls @ 100 mls/hr IVPB Q8H-IV [facility] PRN Reason: Protocol Last Admin: 03/14/17 10:00 Dose: 100 mls/hr Lactobacillus Acidophilus (Bacid -) 1 tab PO BID [facility] Last Admin: 03/14/17 09:57 Dose: 1 tab Levetiracetam (Keppra -) 750 mg PO BID [facility] Last Admin: 03/14/17 09:57 Dose: 750 mg Losartan Potassium (Cozaar -) 50 mg PO DAILY [facility] Last Admin: 03/14/17 09:57 Dose: 50 mg Methylprednisolone Sodium Succinate (Solu-Medrol -) 20 mg IVPB Q8H-IV [facility] Montelukast Sodium (Singulair -) 10 mg PO HS [facility] Last Admin: 03/13/17 22:14 Dose: 10 mg Tamsulosin HCl (Flomax -) 0.4 mg PO DAILY@0830 [facility] Last Admin: 03/14/17 08:35 Dose: 0.4 mg - Objective Vital Signs: Vital Signs Temperature 98 F 03/14/17 08:45 Pulse Rate 66 03/14/17 11:56 Respiratory Rate 24 03/14/17 08:45 Blood Pressure 134/51 03/14/17 11:40 O2 Sat by Pulse Oximetry (%) 93 L 03/14/17 11:56 Constitutional: Yes: Calm Eyes: Yes: Conjunctiva Clear Neck: Yes: Supple Cardiovascular: Yes: S1, S2 Respiratory: Yes: On Nasal O2, Rhonchi Gastrointestinal: Yes: Normal Bowel Sounds, Soft Genitourinary: Yes: WNL Musculoskeletal: Yes: WNL Edema: Yes Edema: LLE: Trace, RLE: Trace Neurological: Yes: Oriented Psychiatric: Yes: Oriented Labs: CBC, BMP 03/14/17 09:15 03/14/17 07:40 INR, PTT INR 0.92 (0.82-1.09) 03/08/17 03:10 Problem List - Problems (1) YEISON (acute kidney injury) Code(s): N17.9 - ACUTE KIDNEY FAILURE, UNSPECIFIED (2) COPD (chronic obstructive pulmonary disease) Code(s): J44.9 - CHRONIC OBSTRUCTIVE PULMONARY DISEASE, UNSPECIFIED Qualifiers : COPD type: COPD with acute lower respiratory infection Qualified Code(s): J44.0 - Chronic obstructive pulmonary disease with acute lower respiratory infection (3) Sepsis Code(s): A41.9 - SEPSIS, UNSPECIFIED ORGANISM Assessment/Plan Current Medications Generic Name Dose Route Start Last Admin Trade Name Freq PRN Reason Stop Dose Admin Albuterol/Ipratropium 1 amp 03/08/17 06:00 03/14/17 11:05 Duoneb - NEB 1 amp QIDR [facility] Administration Amlodipine Besylate 5 mg 03/08/17 10:00 03/14/17 09:58 Norvasc - PO 5 mg DAILY [facility] Administration Atorvastatin Calcium 10 mg 03/09/17 22:00 03/13/17 22:14 Lipitor - PO 10 mg HS [facility] Administration Cholestyramine Resin 4 gm 03/12/17 10:00 03/14/17 09:58 Questran Light Packet - PO 4 gm BID [facility] Administration Dipyridamole/Aspirin 1 combo 03/08/17 10:00 03/14/17 09:57 Aggrenox - PO 1 combo BID [facility] Administration Heparin Sodium (Porcine) 5,000 unit 03/08/17 22:00 03/14/17 10:01 Heparin - SQ 5,000 unit BID [facility] Administration Piperacillin Sod/Tazobactam Sod 50 mls @ 100 mls/hr 03/08/17 18:00 03/14/17 10: 00 Zosyn 2.25gm Ivpb (Pre-Docked) IVPB 100 mls/hr Q8H-IV [facility] Administration Protocol Lactobacillus Acidophilus 1 tab 03/11/17 22:00 03/14/17 09:57 Bacid - PO 1 tab BID [facility] Administration Levetiracetam 750 mg 03/08/17 10:00 03/14/17 09:57 Keppra - PO 750 mg BID [facility] Administration Losartan Potassium 50 mg 03/12/17 10:00 03/14/17 09:57 Cozaar - PO 50 mg DAILY [facility] Administration Methylprednisolone Sodium Succinate 20 mg 03/14/17 18:00 Solu-Medrol - IVPB Q8H-IV [facility] Montelukast Sodium 10 mg 03/08/17 22:00 03/13/17 22:14 Singulair - PO 10 mg HS [facility] Administration Tamsulosin HCl 0.4 mg 03/08/17 08:30 03/14/17 08:35 Flomax - PO 0.4 mg DAILY@0830 [facility] Administration Impression 1. YEISON 2. Sepsis 3. hx CHF 4. COPD 5. CAD 6. hx CVA 7. anemia Plan - start low potassium diet - will give dose of lasix - repeat labs in am - cardio follow up - bipap as needed - will follow pt - cont with cristopher Avelar
[2017-03-14] MEDS ORDERED: FUROSEMIDE 40 MG TABLET (FP) PO ONE (15:03)
--- NOTE | 2017-03-14 16:24 | PN ---
Physical Exam: SUBJECTIVE: Patient seen and examined at bedside.No overnight events. No new complaints.breathing is a liitle better . OBJECTIVE: Vital Signs Period Temp Pulse Resp BP Sys/Bush Pulse Ox Last 24 Hr 97.6 F-98.5 F 66-75 18-24 134-165/51-74 93-97 GENERAL: awake and alert, NAD HEAD: AT/NC EYES: PERRL, EOMI, sclera anicteric, conjunctiva clear. No ptosis. NECK:Supple, no jvd LUNGS:on Bipap.,CTAB HEART: RRR, S1S2 ABDOMEN: Soft,obese NT, ND, BS(+) EXTREMITIES: 2+ pulses, warm, well-perfused, no edema. NEUROLOGICAL: Cranial nerves II through XII grossly intact. Normal speech, gait not observed. Laboratory Results - last 24 hr 03/14/17 03/14/17 03/14/17 07:40 07:40 09:15 WBC Cancelled 20.9 H Corrected WBC (auto) Cancelled RBC Cancelled 3.99 L Hgb Cancelled 11.9 Hct Cancelled 36.7 MCV Cancelled 91.8 MCHC Cancelled 32.6 RDW Cancelled 15.5 Plt Count Cancelled 136 MPV Cancelled 8.4 Neutrophils % 96.0 H Lymphocytes % 1.0 L D Monocytes % 3.0 L Differential Comment Cancelled Manual diff done Platelet Estimate Cancelled Decreased Platelet Comment Cancelled RBC Morphology Cancelled Sodium 143 Potassium 5.5 H Chloride 106 Carbon Dioxide 27 Anion Gap 10 BUN 44 H Creatinine 1.0 Random Glucose 118 H D Calcium 8.7 Active Medications Generic Name Dose Route Start Last Admin Trade Name Jordon PRN Reason Stop Dose Admin Albuterol/Ipratropium 1 amp 03/08/17 06:00 03/14/17 11:05 Duoneb - NEB 1 amp QIDR [facility] Administration Amlodipine Besylate 5 mg 03/08/17 10:00 03/14/17 09:58 Norvasc - PO 5 mg DAILY C[facility] Administration Atorvastatin Calcium 10 mg 03/09/17 22:00 03/13/17 22:14 Lipitor - PO 10 mg HS C[facility]Y Administration Cholestyramine Resin 4 gm 03/12/17 10:00 03/14/17 09:58 Questran Light Packet - PO 4 gm BID [facility] Administration Dipyridamole/Aspirin 1 combo 03/08/17 10:00 03/14/17 09:57 Aggrenox - PO 1 combo BID [facility] Administration Heparin Sodium (Porcine) 5,000 unit 03/08/17 22:00 03/14/17 10:01 Heparin - SQ 5,000 unit BID [facility] Administration Piperacillin Sod/Tazobactam Sod 50 mls @ 100 mls/hr 03/08/17 18:00 03/14/17 10: 00 Zosyn 2.25gm Ivpb (Pre-Docked) IVPB 100 mls/hr Q8H-IV [facility] Administration Protocol Lactobacillus Acidophilus 1 tab 03/11/17 22:00 03/14/17 09:57 Bacid - PO 1 tab BID [facility] Administration Levetiracetam 750 mg 03/08/17 10:00 03/14/17 09:57 Keppra - PO 750 mg BID [facility] Administration Losartan Potassium 50 mg 03/12/17 10:00 03/14/17 09:57 Cozaar - PO 50 mg DAILY [facility] Administration Methylprednisolone Sodium Succinate 20 mg 03/14/17 18:00 Solu-Medrol - IVPB Q8H-IV [facility] Montelukast Sodium 10 mg 03/08/17 22:00 03/13/17 22:14 Singulair - PO 10 mg HS C[facility] Administration Tamsulosin HCl 0.4 mg 03/08/17 08:30 03/14/17 08:35 Flomax - PO 0.4 mg DAILY@0830 C[facility] Administration ASSESSMENT/PLAN: 89 year old male with significant PMHx of COPD, CHF, CAD, COPD, CVA, brought to the emergency room by EMS due to shortness of breath, found to be in acute respiratory failure and hypotensive. Admitted for sepsis secondary to pneumonia Problem List - Problems (1) Sepsis Assessment/Plan: * secondary to PNA * WBC spiked today most likely from Steroids. * Repeat Blood cultures (-) * Will continue Zosyn * ID consult appreciated. * repeat CBC in AM (2) Pneumonia Assessment/Plan: * Continue with current Abx regimen. * repeat CXR * Aspiration precautions. Qualifiers: (3) COPD (chronic obstructive pulmonary disease) Assessment/Plan: * Continue supplemental O2 * Bipap PRN * Continue solumedrol IV 40mg Q6H * Continue Singulair * Duoneb QID * Pulmonary consult appreciated. (4) YEISON (acute kidney injury) Assessment/Plan: * Improved. * Back to baseline. * Will continue to trend. (5) CHF (congestive heart failure) Assessment/Plan: * Echo-no sig structural heart disease, normal LV function, no sig valvular abnl , no change from echo 2015 * Cardio consult appreciated * Losartan 50mg PO daily. (6) CVA (cerebral vascular accident) Assessment/Plan: * Continue Aggrenox and Lipitor. * Keppra 750mg PO BID (7) CAD (coronary artery disease) Assessment/Plan: * Continue Lipitor and aggrenox * NO BB 2/2 h/o conduction disease. (8) HTN (hypertension) Assessment/Plan: * Continue Amlodipine 5mg PO daily and Losartan 50mg Po daily (9) DVT prophylaxis Assessment/Plan: * Heparin 5000 units BID SQ Visit type - Emergency Visit Emergency Visit: Yes ED Registration Date: 03/08/17 Care time: The patient presented to the Emergency Department on the above date and was hospitalized for further evaluation of their emergent condition. - New Patient This patient is new to me today: No - Critical Care Critical Care patient: No - Discharge Referral Referred to [facility] Med [facility] No
--- NOTE | 2017-03-14 18:07 | PN ---
Teaching Attending Note Name of Resident: Ramiro Harley ATTENDING PHYSICIAN STATEMENT I saw and evaluated the patient. I reviewed the resident's note and discussed the case with the resident. I agree with the resident's findings and plan as documented. SUBJECTIVE: no fever or chills . feels better . no abd pain OBJECTIVE: NAD Awake,alert , cooperative CV: RRR Lungs: good air entry . clear b/l Ext : no edema ASSESSMENT AND PLAN: 89 y/o gentleman with h/o COPD, CHF,HTN, CAD, COPD, CVA who presented with worsening SOB and was found to have acute resp failure due to acute COPD exacerbation and possible aspiration PNA 1- Acute resp failure due to COPD exacerbation and possible aspiration PNA clinically improved. leukocytosis might be due to steorids - stable on NC . venti mask and BIPAP as needed - cont Zosyn, possible dc tomorrow - cont steroid taper and Nebs 2- YEISON: improved. stable cr. dose of lasix today 3- HTN : improved . cont meds 4- H/o CAD : cont aggrenox . Not on BB due to conduction abn 5- Dysphagia : with esophageogram showing dysmotility . - high risk resp [facility] for EGD at this point 6- HLOC OB to chair
[2017-03-14] MEDS: ATORVASTATIN CA 10 MG TABLET (FP) PO SCH (22:08)
[2017-03-14] MEDS: MONTELUKAST NA 10 MG TABLET PO SCH (22:09)
[2017-03-15] MEDS: methylPREDNISolone NA SUCC 40 MG/1 ML VIAL IVPB SCH ×3 (01:30→18:05)
[2017-03-15] MEDS: PIPERACILLIN/TAZOB 2.25 GM 50 ML IVPB SCH ×3 (01:31→18:05)
[2017-03-15] MEDS: ALBUTEROL SO4 2.5/IPRATROPIUM 0.5 INH SOL 3 ML VIAL.NEB. NEB SCH ×4 (06:55→23:20)
[2017-03-15] MEDS: amLODIPine BESYLATE 5 MG TABLET (FP) PO SCH ×2 (07:03→11:04)
[2017-03-15] MEDS ORDERED: amLODIPine BESYLATE 5 MG TABLET (FP) PO ONE ×2 (07:41→11:45)
[2017-03-15 09:16] LABS: ALBUMIN 2.9 g/dl (3.4-5.0); ANION GAP 11 (8-16); CALCIUM 8.6 mg/dL (8.5-10.1); CO2 24 mmol/L (21-32); CREATININE 1.2 mg/dL (0.7-1.3); GLUCOSE,RANDOM 122 mg/dL (74-106); SGPT/ALT 27 U/L (12-78)
[2017-03-15 09:18] LABS: ALK PHOS 49 U/L (45-117); BILIRUBIN,TOTAL 0.5 mg/dL (0.2-1.0); TOT PROT 5.9 g/dl (6.4-8.2)
[2017-03-15 09:24] LABS: SGOT/AST 21 U/L (15-37)
[2017-03-15] MEDS: HEPARIN NA (PORCINE) 5,000 UNITS/ML 1ML VIAL SQ SCH ×2 (11:03→21:38)
[2017-03-15] MEDS: CHOLESTYRAMINE/ASPARTAME 4 GM PACKET PO SCH ×2 (11:03→21:38)
[2017-03-15] MEDS: levETIRAcetam 250 MG TABLET (FP) PO SCH ×2 (11:03→21:38)
[2017-03-15] MEDS: ASPIRIN/DIPYRIDAMOLE 25 MG/200 MG CAPSULE (FP) PO SCH ×2 (11:03→21:37)
[2017-03-15] MEDS: LACTOBACILLUS ACIDOPHILUS 1 EACH TAB (FP) PO SCH ×2 (11:03→21:38)
--- NOTE | 2017-03-15 11:03 | PN ---
Progress Note (short form) - Note Progress Note: PULMONARY DIARRHEA CONTINUES/C.DIFF- VSS/AFEBRILE N/C O2 ANICTERIC SCATTERED RHONCHI LESS S1S2 BS+ SOFT 1+ EDEMA LABS/MEDS/IMAGING/MICRO/REVIEWED (1) COPD (chronic obstructive pulmonary disease) Code(s): J44.9 - CHRONIC OBSTRUCTIVE PULMONARY DISEASE, UNSPECIFIED (2) Elevated troponin Code(s): R74.8 - ABNORMAL LEVELS OF OTHER SERUM ENZYMES (3) Pneumonia Code(s): J18.9 - PNEUMONIA, UNSPECIFIED ORGANISM (4) Acute respiratory failure Code(s): J96.00 - ACUTE RESPIRATORY FAILURE, UNSP W HYPOXIA OR HYPERCAPNIA Check ABG on nasal o2 NIPPV if respiratory status worsens Aspiration precautions BD TX ABX Medrol Reduced DNR/DNI Elizabeth PELLETIER MD
[2017-03-15] MEDS: LOSARTAN POTASSIUM 50 MG TABLET (FP) PO SCH (11:04)
[2017-03-15] MEDS: TAMSULOSIN HCL 0.4 MG CAP.ER.24H (FP) PO SCH (11:04)
[2017-03-15 13:23] LABS: URINE APPEARANCE CLOUDY; URINE BILIRUBIN NEGATIVE (NEGATIVE); URINE COLOR YELLOW; URINE GLUCOSE (UA) NEGATIVE (NEGATIVE); URINE KETONE NEGATIVE (NEGATIVE); URINE NITRITE NEGATIVE (NEGATIVE); URINE PROTEIN NEGATIVE (NEGATIVE); URINE UROBILINOGEN NEGATIVE E.U./dl (0.2-1.0)
[2017-03-15 13:24] LABS: URINE BLOOD 3+ (NEGATIVE); URINE LEUK ESTERASE TRACE (NEGATIVE)
[2017-03-15 13:28] LABS: URINE MUCUS RARE; URINE RBC 603 /hpf (0-3); URINE WBC 7 /hpf (3-5)
[2017-03-15 13:45] LABS: ARTERIAL BLOOD GAS BASE EXCESS 0.6 meq/l (-2-2); ARTERIAL BLOOD GAS PO2 61.7 mmHg (68-100); ARTERIAL BLOOD GAS pH 7.49 (7.35-7.45)
[2017-03-15 13:46] LABS: ALLENS TEST POSITIVE; ART PUNCT SITE LEFT RADIAL; LPM/O2% 3L; PT. ON O2? YES; TYPE OF O2 N/C
--- NOTE | 2017-03-15 14:19 | PN ---
Progress Note, Physician - Current Medication List Current Medications: Active Medications Albuterol/Ipratropium (Duoneb -) 1 amp NEB QIDR [facility] Last Admin: 03/15/17 11:30 Dose: 1 amp Amlodipine Besylate (Norvasc -) 10 mg PO DAILY [facility] Atorvastatin Calcium (Lipitor -) 10 mg PO HS [facility] Last Admin: 03/14/17 22:08 Dose: 10 mg Cholestyramine Resin (Questran Light Packet -) 4 gm PO BID [facility] Last Admin: 03/15/17 11:03 Dose: 4 gm Dipyridamole/Aspirin (Aggrenox -) 1 combo PO BID [facility] Last Admin: 03/15/17 11:03 Dose: 1 combo Heparin Sodium (Porcine) (Heparin -) 5,000 unit SQ BID [facility] Last Admin: 03/15/17 11:03 Dose: 5,000 unit Piperacillin Sod/Tazobactam Sod (Zosyn 2.25gm Ivpb (Pre-Docked)) 50 mls @ 100 mls/hr IVPB Q8H-IV [facility] PRN Reason: Protocol Last Admin: 03/15/17 11:02 Dose: 100 mls/hr Lactobacillus Acidophilus (Bacid -) 1 tab PO BID [facility] Last Admin: 03/15/17 11:03 Dose: 1 tab Levetiracetam (Keppra -) 750 mg PO BID [facility] Last Admin: 03/15/17 11:03 Dose: 750 mg Losartan Potassium (Cozaar -) 50 mg PO DAILY [facility] Last Admin: 03/15/17 11:04 Dose: 50 mg Methylprednisolone Sodium Succinate (Solu-Medrol -) 20 mg IVPB Q8H-IV [facility] Last Admin: 03/15/17 11:02 Dose: 20 mg Montelukast Sodium (Singulair -) 10 mg PO HS [facility] Last Admin: 03/14/17 22:09 Dose: 10 mg Tamsulosin HCl (Flomax -) 0.4 mg PO DAILY@0830 [facility] Last Admin: 03/15/17 11:04 Dose: 0.4 mg - Objective Vital Signs: Vital Signs Temperature 97.6 F 03/15/17 07:51 Pulse Rate 66 03/15/17 11:30 Respiratory Rate 20 03/15/17 07:51 Blood Pressure 145/69 03/15/17 07:51 O2 Sat by Pulse Oximetry (%) 93 L 03/15/17 11:30 Eyes: Yes: WNL, Conjunctiva Clear, EOM Intact HENT: Yes: WNL, Atraumatic, Normocephalic Neck: Yes: WNL, Supple, Trachea Midline Cardiovascular: Yes: WNL, Regular Rate and Rhythm Respiratory: Yes: WNL, Regular, CTA Bilaterally Gastrointestinal: Yes: WNL, Normal Bowel Sounds Genitourinary: Yes: WNL Musculoskeletal: Yes: WNL Extremities: Yes: WNL Edema: No Integumentary: Yes: WNL Neurological: Yes: WNL, Alert, Oriented ...Motor Strength: WNL Psychiatric: Yes: WNL Labs: CBC, BMP 03/15/17 08:20 INR, PTT INR 0.92 (0.82-1.09) 03/08/17 03:10 Assessment/Plan 89 year old man with a history of HTN, HLD, CAD prior stents, Chronic HF ( unknown type), past CVA/TIA, COPD, Prostate Ca, PVD admitted sob, AMS. SOB-primarily secondary to COPD -still wheezing and coughing -echo showed no sig structural heart disease, normal LV function, no sig valvular abnl, no change from echo 2015 -overall euvolemic -hold off on further lasix at this time, bun/creat verenice today -dose Lasix prn -pulmonary following AMS-unclear etiology, h/o CVA -has remained awake and alert -as per PMD CAD-troponin did not significantly trend up, unlikely type 1 [place] -on Aggrenox, ok to use this for CAD (ASA) -no bblocker given h/o sig conduction disease -cont Lipitor HTN-variable but overall improving -cont Losartan and monitor creatinine -cont norvasc HLD -cont Lipitor Carotid stenosis-with reported stent 2 years ago -cont asa and statin
--- NOTE | 2017-03-15 14:30 | PN ---
Physical Exam: SUBJECTIVE: Patient seen and examined at bedside. Pt complains of burning on urination. Pt states he did not sleep well due to feeling anxious and admits to diarrhea overnight. Pt also mentioned he does not get erections anymore. He attributes this to aging. Pt denies headache, CP, abdominal pain, SOB, n/v, difficulty eating or drinking. OBJECTIVE: Vital Signs Period Temp Pulse Resp BP Sys/Bush Pulse Ox Last 24 Hr 97.6 F-982 F 66-78 20-20 145-205/54-98 91-93 GENERAL: The patient is awake, alert, and fully oriented, in no acute distress. HEAD: Normal with no signs of trauma. EYES: PERRL, extraocular movements grossly intact, sclera anicteric, conjunctiva clear. No ptosis. ENT: Ears normal, nares patent, oropharynx clear without exudates, moist mucous membranes. Nasal canula in place. NECK: Trachea midline, full range of motion, supple. LUNGS: Diffuse expiratory wheezing present. Breath sounds equal, no crackles, no accessory muscle use. HEART: Regular rate and rhythm, S1, S2 without murmur, rub or gallop. ABDOMEN: Soft, tenderness in LLQ (chronic), nondistended, normoactive bowel sounds, no guarding, no rebound, no hepatosplenomegaly, no masses. EXTREMITIES: 2+ DP and radial pulses, warm, well-perfused, 1+ ankle edema bilaterally. NEUROLOGICAL: Cranial nerves II through XII grossly intact. Normal speech, gait not observed. PSYCH: Normal mood, normal affect. SKIN: Warm, dry, normal turgor, no rashes or lesions noted Laboratory Results - last 24 hr 03/14/17 03/14/17 03/15/17 17:20 19:50 08:20 Puncture Site ABG pH ABG pCO2 at Pt Temp ABG pO2 at Pt Temp ABG HCO3 ABG O2 Sat (Measured) ABG O2 Content ABG Base Excess Damián Test O2 Delivery Device Oxygen Flow Rate PEEP Sodium 137 Potassium 4.8 5.3 H Plasma Potassium Cancelled Chloride 102 Carbon Dioxide 24 Anion Gap 11 BUN 48 H Creatinine 1.2 Creat Clearance w eGFR 57.01 Random Glucose 122 H Calcium 8.6 Total Bilirubin 0.5 AST 21 D ALT 27 D Alkaline Phosphatase 49 Total Protein 5.9 L Albumin 2.9 L Urine Color Urine Appearance Urine pH Urine Protein Urine Glucose (UA) Urine Ketones Urine Blood Urine Nitrite Urine Bilirubin Urine Urobilinogen Ur Leukocyte Esterase Urine RBC Urine WBC Urine Mucus 03/15/17 03/15/17 12:45 13:40 Puncture Site Left radial ABG pH 7.49 H ABG pCO2 at Pt Temp 30.9 L ABG pO2 at Pt Temp 61.7 L D ABG HCO3 23.0 ABG O2 Sat (Measured) 92.0 ABG O2 Content 14.7 L ABG Base Excess 0.6 Damián Test Positive O2 Delivery Device N/c Oxygen Flow Rate 3l PEEP 0.0 Sodium Potassium Plasma Potassium Chloride Carbon Dioxide Anion Gap BUN Creatinine Creat Clearance w eGFR Random Glucose Calcium Total Bilirubin AST ALT Alkaline Phosphatase Total Protein Albumin Urine Color Yellow Urine Appearance Cloudy Urine pH 5.0 Urine Protein Negative Urine Glucose (UA) Negative Urine Ketones Negative Urine Blood 3+ H Urine Nitrite Negative Urine Bilirubin Negative Urine Urobilinogen Negative Ur Leukocyte Esterase Trace H D Urine RBC 603 Urine WBC 7 Urine Mucus Rare Active Medications Generic Name Dose Route Start Last Admin Trade Name Aaronq PRN Reason Stop Dose Admin Albuterol/Ipratropium 1 amp 03/08/17 06:00 03/15/17 11:30 Duoneb - NEB 1 amp QIDR [facility] Administration Amlodipine Besylate 10 mg 03/16/17 10:00 Norvasc - PO DAILY [facility] Atorvastatin Calcium 10 mg 03/09/17 22:00 03/14/17 22:08 Lipitor - PO 10 mg HS C[facility]Y Administration Cholestyramine Resin 4 gm 03/12/17 10:00 03/15/17 11:03 Questran Light Packet - PO 4 gm BID [facility] Administration Dipyridamole/Aspirin 1 combo 03/08/17 10:00 03/15/17 11:03 Aggrenox - PO 1 combo BID [facility] Administration Heparin Sodium (Porcine) 5,000 unit 03/08/17 22:00 03/15/17 11:03 Heparin - SQ 5,000 unit BID [facility] Administration Piperacillin Sod/Tazobactam Sod 50 mls @ 100 mls/hr 03/08/17 18:00 03/15/17 11: 02 Zosyn 2.25gm Ivpb (Pre-Docked) IVPB 100 mls/hr Q8H-IV [facility] Administration Protocol Lactobacillus Acidophilus 1 tab 03/11/17 22:00 07/01/17 11:03 Bacid - PO 1 tab BID [facility] Administration Levetiracetam 750 mg 03/08/17 10:00 03/15/17 11:03 Keppra - PO 750 mg BID [facility] Administration Losartan Potassium 50 mg 03/12/17 10:00 03/15/17 11:04 Cozaar - PO 50 mg DAILY [facility] Administration Methylprednisolone Sodium Succinate 20 mg 03/14/17 18:00 03/15/17 11:02 Solu-Medrol - IVPB 20 mg Q8H-IV [facility] Administration Montelukast Sodium 10 mg 03/08/17 22:00 03/14/17 22:09 Singulair - PO 10 mg HS [facility] Administration Tamsulosin HCl 0.4 mg 03/08/17 08:30 03/15/17 11:04 Flomax - PO 0.4 mg DAILY@0830 [facility] Administration ASSESSMENT/PLAN: 89 y/o gentleman with h/o COPD, CHF, HTN, CAD, COPD, CVA who presented with worsening SOB and was found to have acute resp failure due to acute COPD exacerbation and possible aspiration PNA # Acute resp failure due to COPD exacerbation and possible aspiration PNA. - Wheezing slightly worse today. - leukocytosis might be due to steorids - stable on NC. venti mask and BIPAP as needed - cont Zosyn 2.25mg IVPB Q8. On day 8 - Singulair 10mg - cont steroid taper Solumedrol -Mar 12 (10:00) 30mg IVPB (1 dose) -Mar 12 (15:00) - (09:00) 40mg IVPB Q6H (4 doses) -Mar 13 (18:00) - (10:00) 40mg IVPB Q8H (3 doses) - Nebs Solumedrol 20mg IVPB Q8 -repeat CXR tomorrow due to worsening expiratory wheeze -last CXR on Mar 13 without new effusion or infiltrates # YEISON: improved - Cr stable at 1.0-1.2 - dose of lasix today # Dysuria - UA today (03/15) positive for blood (3+), trace leukocyte esterase, and 7 unine wbcs - Urine culture pending - Continue Zosyn 2.25mg IVPB Q8 # HTN: uncontrolled - BP spiked to 205/98 this AM. Pt given extra dose of Norvasc - Norvasc increased from 5 to 10mg PO daily # H/o CAD : cont aggrenox . - Not on BB due to conduction abn # Dysphagia : with esophageogram showing dysmotility - EGD to be considered at a future date as pt is currently high risk due to Bipap # HLOC - OB to chair # Diet -Dysphagia Whole diet # DVT ppx -Heparin 5,000 u SQH BID # Erectile Dysfunction -Will refer to outpatient for further care # Continue home meds Visit type - Emergency Visit Emergency Visit: No - New Patient This patient is new to me today: Yes Date on this admission: 03/15/17 - Critical Care Critical Care patient: No
[2017-03-15 14:39] LABS: MCH 29.9 pg (25.7-33.7); MCHC 32.7 g/dl (32.0-35.9); MEAN CELL VOLUME 91.6 fl (80-96); PLATELET COUNT 130 K/MM3 (134-434); RDW 15.9 % (11.9-15.9); WHITE BLOOD COUNT 15.7 K/mm3 (4.0-10.0)
--- NOTE | 2017-03-15 15:59 | PN ---
Teaching Attending Note Name of Resident: Nathaniel Canas ATTENDING PHYSICIAN STATEMENT I saw and evaluated the patient. I reviewed the resident's note and discussed the case with the resident. I agree with the resident's findings and plan as documented. SUBJECTIVE: no fever or chills. feels his breathing is worse today. used BIPAP at night last night . still has dysuria . OBJECTIVE: NAD Awake,alert , cooperative CV: RRR Lungs: good air entry . b/l wheezes Ext : no edema Abd; soft , TTP in LLQ , , no rebound tenderness or guarding , ND,ND , NL BS. ASSESSMENT AND PLAN: 89 y/o gentleman with h/o COPD, CHF,HTN, CAD, COPD, CVA who presented with worsening SOB and was found to have acute resp failure due to acute COPD exacerbation and possible aspiration PNA 1- Acute resp failure due to COPD exacerbation and possible aspiration PNA clinically improved. leukocytosis might be due to steorids ( improved ) - cont BIPAP at night and periodically during the day - will stop zosyn today - cont Zosyn, possible dc tomorrow - cont steroid taper and Nebs 2- YEISON: improved. stable cr. hyperkalemia , mild, reepat level 3- HTN : improved . cont meds 4- Dysuria : repeat UA with 7 WBCs. but with significant RBC . this was a straight cath, possible trauma leadingto hematuria. will repeat UA tomorrow 5- diarrhea : repeat c diff pending 6- H/o CAD : cont aggrenox . Not on BB due to conduction abn 7- Dysphagia : with esophageogram showing dysmotility . - high risk resp [facility] for EGD at this point 8- HLOC PT eval
--- NOTE | 2017-03-15 16:20 | PN ---
Progress Note, Physician History of Present Illness: patient stable still breathing not good using bipap and nasal cannula - Current Medication List Current Medications: Active Medications Albuterol/Ipratropium (Duoneb -) 1 amp NEB QIDR [facility] Last Admin: 03/15/17 11:30 Dose: 1 amp Amlodipine Besylate (Norvasc -) 10 mg PO DAILY [facility] Atorvastatin Calcium (Lipitor -) 10 mg PO HS [facility] Last Admin: 03/14/17 22:08 Dose: 10 mg Cholestyramine Resin (Questran Light Packet -) 4 gm PO BID [facility] Last Admin: 03/15/17 11:03 Dose: 4 gm Dipyridamole/Aspirin (Aggrenox -) 1 combo PO BID [facility] Last Admin: 03/15/17 11:03 Dose: 1 combo Heparin Sodium (Porcine) (Heparin -) 5,000 unit SQ BID [facility] Last Admin: 03/15/17 11:03 Dose: 5,000 unit Piperacillin Sod/Tazobactam Sod (Zosyn 2.25gm Ivpb (Pre-Docked)) 50 mls @ 100 mls/hr IVPB Q8H-IV [facility] PRN Reason: Protocol Last Admin: 03/15/17 11:02 Dose: 100 mls/hr Lactobacillus Acidophilus (Bacid -) 1 tab PO BID [facility] Last Admin: 03/15/17 11:03 Dose: 1 tab Levetiracetam (Keppra -) 750 mg PO BID [facility] Last Admin: 03/15/17 11:03 Dose: 750 mg Losartan Potassium (Cozaar -) 50 mg PO DAILY [facility] Last Admin: 03/15/17 11:04 Dose: 50 mg Methylprednisolone Sodium Succinate (Solu-Medrol -) 20 mg IVPB Q8H-IV [facility] Last Admin: 03/15/17 11:02 Dose: 20 mg Montelukast Sodium (Singulair -) 10 mg PO HS [facility] Last Admin: 03/14/17 22:09 Dose: 10 mg Multi-Ingredient Ointment (Zinc Oxide) 1 applic TP BID [facility] Nystatin (Nystop Powder -) 1 applic TP DAILY [facility] Tamsulosin HCl (Flomax -) 0.4 mg PO DAILY@0830 [facility] Last Admin: 03/15/17 11:04 Dose: 0.4 mg - Objective Vital Signs: Vital Signs Temperature 98.6 F 03/15/17 14:30 Pulse Rate 79 03/15/17 14:30 Respiratory Rate 18 03/15/17 14:30 Blood Pressure 157/62 03/15/17 14:30 O2 Sat by Pulse Oximetry (%) 93 L 03/15/17 11:30 Constitutional: Yes: No Distress, Calm, Obese Cardiovascular: Yes: Regular Rate and Rhythm Respiratory: Yes: On BiPap, On Nasal O2, Poor Air Entry Gastrointestinal: Yes: Normal Bowel Sounds, Soft Musculoskeletal: Yes: WNL Extremities: Yes: WNL Neurological: Yes: Alert, Oriented Psychiatric: Yes: Alert, Oriented Labs: CBC, BMP 03/15/17 08:20 03/15/17 08:20 INR, PTT INR 0.92 (0.82-1.09) 03/08/17 03:10 Assessment/Plan Problem List - Problems (1) COPD (chronic obstructive pulmonary disease) Code(s): J44.9 - CHRONIC OBSTRUCTIVE PULMONARY DISEASE, UNSPECIFIED (2) Elevated troponin Code(s): R74.8 - ABNORMAL LEVELS OF OTHER SERUM ENZYMES (3) Pneumonia Code(s): J18.9 - PNEUMONIA, UNSPECIFIED ORGANISM (4) Acute respiratory failure Code(s): J96.00 - ACUTE RESPIRATORY FAILURE, UNSP W HYPOXIA OR HYPERCAPNIA blood cx result noted probably a contaminant plan stop abx tomorrow wbc has stabilized patient still with resp issues physio
--- NOTE | 2017-03-15 16:25 | PN ---
Progress Note, Physician History of Present Illness: Pt seen and examined at bedside. He denies dysuria or heamturia - Current Medication List Current Medications: Active Medications Albuterol/Ipratropium (Duoneb -) 1 amp NEB QIDR [facility] Last Admin: 03/15/17 11:30 Dose: 1 amp Amlodipine Besylate (Norvasc -) 10 mg PO DAILY [facility] Atorvastatin Calcium (Lipitor -) 10 mg PO HS [facility] Last Admin: 03/14/17 22:08 Dose: 10 mg Cholestyramine Resin (Questran Light Packet -) 4 gm PO BID [facility] Last Admin: 03/15/17 11:03 Dose: 4 gm Dipyridamole/Aspirin (Aggrenox -) 1 combo PO BID [facility] Last Admin: 03/15/17 11:03 Dose: 1 combo Heparin Sodium (Porcine) (Heparin -) 5,000 unit SQ BID [facility] Last Admin: 03/15/17 11:03 Dose: 5,000 unit Piperacillin Sod/Tazobactam Sod (Zosyn 2.25gm Ivpb (Pre-Docked)) 50 mls @ 100 mls/hr IVPB Q8H-IV [facility] PRN Reason: Protocol Last Admin: 03/15/17 11:02 Dose: 100 mls/hr Lactobacillus Acidophilus (Bacid -) 1 tab PO BID [facility] Last Admin: 03/15/17 11:03 Dose: 1 tab Levetiracetam (Keppra -) 750 mg PO BID [facility] Last Admin: 03/15/17 11:03 Dose: 750 mg Losartan Potassium (Cozaar -) 50 mg PO DAILY [facility] Last Admin: 03/15/17 11:04 Dose: 50 mg Methylprednisolone Sodium Succinate (Solu-Medrol -) 20 mg IVPB Q8H-IV [facility] Last Admin: 03/15/17 11:02 Dose: 20 mg Montelukast Sodium (Singulair -) 10 mg PO HS [facility] Last Admin: 03/14/17 22:09 Dose: 10 mg Multi-Ingredient Ointment (Zinc Oxide) 1 applic TP BID [facility] Nystatin (Nystop Powder -) 1 applic TP DAILY [facility] Tamsulosin HCl (Flomax -) 0.4 mg PO DAILY@0830 [facility] Last Admin: 03/15/17 11:04 Dose: 0.4 mg - Objective Vital Signs: Vital Signs Temperature 98.6 F 03/15/17 14:30 Pulse Rate 79 03/15/17 14:30 Respiratory Rate 18 03/15/17 14:30 Blood Pressure 157/62 03/15/17 14:30 O2 Sat by Pulse Oximetry (%) 93 L 03/15/17 11:30 Constitutional: Yes: Calm Eyes: Yes: Conjunctiva Clear HENT: Yes: Atraumatic Neck: Yes: Supple Cardiovascular: Yes: S1, S2 Respiratory: Yes: On Nasal O2 Gastrointestinal: Yes: Normal Bowel Sounds, Soft Genitourinary: Yes: WNL Edema: Yes Edema: LLE: Trace, RLE: Trace Neurological: Yes: Oriented Psychiatric: Yes: Oriented Labs: CBC, BMP 03/15/17 08:20 03/15/17 08:20 INR, PTT INR 0.92 (0.82-1.09) 03/08/17 03:10 Problem List - Problems (1) YEISON (acute kidney injury) Code(s): N17.9 - ACUTE KIDNEY FAILURE, UNSPECIFIED (2) COPD (chronic obstructive pulmonary disease) Code(s): J44.9 - CHRONIC OBSTRUCTIVE PULMONARY DISEASE, UNSPECIFIED Qualifiers : COPD type: COPD with acute lower respiratory infection Qualified Code(s): J44.0 - Chronic obstructive pulmonary disease with acute lower respiratory infection (3) Sepsis Code(s): A41.9 - SEPSIS, UNSPECIFIED ORGANISM Assessment/Plan Current Medications Generic Name Dose Route Start Last Admin Trade Name Freq PRN Reason Stop Dose Admin Albuterol/Ipratropium 1 amp 03/08/17 06:00 03/15/17 11:30 Duoneb - NEB 1 amp QIDR C[facility]Y Administration Amlodipine Besylate 10 mg 03/16/17 10:00 Norvasc - PO DAILY C[facility] Atorvastatin Calcium 10 mg 03/09/17 22:00 03/14/17 22:08 Lipitor - PO 10 mg HS C[facility] Administration Cholestyramine Resin 4 gm 03/12/17 10:00 03/15/17 11:03 Questran Light Packet - PO 4 gm BID C[facility]Y Administration Dipyridamole/Aspirin 1 combo 03/08/17 10:00 03/15/17 11:03 Aggrenox - PO 1 combo BID [facility] Administration Heparin Sodium (Porcine) 5,000 unit 03/08/17 22:00 03/15/17 11:03 Heparin - SQ 5,000 unit BID [facility] Administration Piperacillin Sod/Tazobactam Sod 50 mls @ 100 mls/hr 03/08/17 18:00 03/15/17 11: 02 Zosyn 2.25gm Ivpb (Pre-Docked) IVPB 100 mls/hr Q8H-IV [facility] Administration Protocol Lactobacillus Acidophilus 1 tab 03/11/17 22:00 03/15/17 11:03 Bacid - PO 1 tab BID C[facility] Administration Levetiracetam 750 mg 03/08/17 10:00 03/15/17 11:03 Keppra - PO 750 mg BID [facility] Administration Losartan Potassium 50 mg 03/12/17 10:00 03/15/17 11:04 Cozaar - PO 50 mg DAILY [facility] Administration Methylprednisolone Sodium Succinate 20 mg 03/14/17 18:00 03/15/17 11:02 Solu-Medrol - IVPB 20 mg Q8H-IV [facility] Administration Montelukast Sodium 10 mg 03/08/17 22:00 03/14/17 22:09 Singulair - PO 10 mg HS [facility] Administration Multi-Ingredient Ointment 1 applic 03/15/17 22:00 Zinc Oxide TP BID [facility] Nystatin 1 applic 03/15/17 16:00 Nystop Powder - TP DAILY [facility] Tamsulosin HCl 0.4 mg 03/08/17 08:30 03/15/17 11:04 Flomax - PO 0.4 mg DAILY@0830 [facility] Administration Impression 1. YEISON 2. Sepsis 3. hx CHF 4. COPD 5. CAD 6. hx CVA 7. anemia 8. hyperkalemia Plan - discussed meds with pt and his . He was on Losartan on the past and it was stopped secondary to hyperkalemia - will stop losartan - can start hydralazine - repeat labs in am - bp has been elevated - bipap as needed - will follow pt Dr Avelar
[2017-03-15] MEDS: NYSTATIN POWDER 100,000 UNITS/GM - 15 GM TOPICAL POWDER TP SCH (17:55)
[2017-03-15] MEDS: hydrALAZINE HCL 10 MG TABLET PO SCH (21:37)
[2017-03-15] MEDS: MONTELUKAST NA 10 MG TABLET PO SCH (21:38)
[2017-03-15] MEDS: ATORVASTATIN CA 10 MG TABLET (FP) PO SCH (21:38)
[2017-03-15] MEDS: ZINC OXIDE 20% TOPICAL OINTMENT 30 GM TUBE TP SCH (21:39)
[2017-03-16] MEDS: PIPERACILLIN/TAZOB 2.25 GM 50 ML IVPB SCH ×2 (02:34→13:41)
[2017-03-16] MEDS: methylPREDNISolone NA SUCC 40 MG/1 ML VIAL IVPB SCH ×3 (02:34→17:15)
[2017-03-16] MEDS: HEPARIN NA (PORCINE) 5,000 UNITS/ML 1ML VIAL SQ SCH ×3 (06:11→21:31)
[2017-03-16] MEDS: ALBUTEROL SO4 2.5/IPRATROPIUM 0.5 INH SOL 3 ML VIAL.NEB. NEB SCH ×2 (06:55→11:45)
[2017-03-16 08:56] LABS: ANION GAP 11 (8-16); CALCIUM 8.3 mg/dL (8.5-10.1); CO2 26 mmol/L (21-32); CREATININE 1.1 mg/dL (0.7-1.3); GLUCOSE,RANDOM 122 mg/dL (74-106)
--- NOTE | 2017-03-16 10:17 | PN ---
Progress Note (short form) - Note Progress Note: PULMONARY VSS/AFEBRILE N/C O2 ANICTERIC SCATTERED RHONCHI LESS S1S2 BS+ SOFT 1+ EDEMA LABS/MEDS/IMAGING/MICRO/ABG/REVIEWED (1) COPD (chronic obstructive pulmonary disease) Code(s): J44.9 - CHRONIC OBSTRUCTIVE PULMONARY DISEASE, UNSPECIFIED (2) Elevated troponin Code(s): R74.8 - ABNORMAL LEVELS OF OTHER SERUM ENZYMES (3) Pneumonia Code(s): J18.9 - PNEUMONIA, UNSPECIFIED ORGANISM (4) Acute respiratory failure Code(s): J96.00 - ACUTE RESPIRATORY FAILURE, UNSP W HYPOXIA OR HYPERCAPNIA NIPPV if respiratory status worsens Aspiration precautions BD TX ABX Medrol Reduced DNR/DNI R LIYAH SHARMA
[2017-03-16] MEDS ORDERED: PT OWN MED DRAWER 7, Y5N ONE (11:23)
[2017-03-16] MEDS: TAMSULOSIN HCL 0.4 MG CAP.ER.24H (FP) PO SCH (11:35)
[2017-03-16] MEDS: CHOLESTYRAMINE/ASPARTAME 4 GM PACKET PO SCH ×2 (11:37→21:32)
[2017-03-16] MEDS: LACTOBACILLUS ACIDOPHILUS 1 EACH TAB (FP) PO SCH ×2 (11:38→21:31)
[2017-03-16] MEDS: ASPIRIN/DIPYRIDAMOLE 25 MG/200 MG CAPSULE (FP) PO SCH ×2 (11:38→21:30)
[2017-03-16] MEDS: levETIRAcetam 250 MG TABLET (FP) PO SCH ×2 (11:39→21:31)
[2017-03-16] MEDS: amLODIPine BESYLATE 5 MG TABLET (FP) PO SCH (11:39)
[2017-03-16] MEDS: NYSTATIN POWDER 100,000 UNITS/GM - 15 GM TOPICAL POWDER TP SCH (11:40)
[2017-03-16] MEDS: ZINC OXIDE 20% TOPICAL OINTMENT 30 GM TUBE TP SCH ×2 (11:42→21:32)
--- NOTE | 2017-03-16 12:09 | PN ---
Progress Note, Physician - Current Medication List Current Medications: Active Medications Albuterol/Ipratropium (Duoneb -) 1 amp NEB QIDR [facility] Last Admin: 03/16/17 11:45 Dose: 1 amp Amlodipine Besylate (Norvasc -) 10 mg PO DAILY [facility] Last Admin: 03/16/17 11:39 Dose: 10 mg Atorvastatin Calcium (Lipitor -) 10 mg PO HS [facility] Last Admin: 03/15/17 21:38 Dose: 10 mg Cholestyramine Resin (Questran Light Packet -) 4 gm PO BID [facility] Last Admin: 03/16/17 11:37 Dose: 4 gm Dipyridamole/Aspirin (Aggrenox -) 1 combo PO BID [facility] Last Admin: 03/16/17 11:38 Dose: 1 combo Heparin Sodium (Porcine) (Heparin -) 5,000 unit SQ TID [facility] Last Admin: 03/16/17 06:11 Dose: 5,000 unit Hydralazine HCl (Apresoline -) 10 mg PO BID [facility] Last Admin: 03/15/17 21:37 Dose: 10 mg Piperacillin Sod/Tazobactam Sod (Zosyn 2.25gm Ivpb (Pre-Docked)) 50 mls @ 100 mls/hr IVPB Q8H-IV [facility] PRN Reason: Protocol Last Admin: 03/16/17 02:34 Dose: 100 mls/hr Lactobacillus Acidophilus (Bacid -) 1 tab PO BID [facility] Last Admin: 03/16/17 11:38 Dose: 1 tab Levetiracetam (Keppra -) 750 mg PO BID [facility] Last Admin: 03/16/17 11:39 Dose: 750 mg Methylprednisolone Sodium Succinate (Solu-Medrol -) 20 mg IVPB Q8H-IV [facility] Last Admin: 03/16/17 11:42 Dose: 20 mg Montelukast Sodium (Singulair -) 10 mg PO HS [facility] Last Admin: 03/15/17 21:38 Dose: 10 mg Multi-Ingredient Ointment (Zinc Oxide) 1 applic TP BID [facility] Last Admin: 03/16/17 11:42 Dose: 1 applic Nystatin (Nystop Powder -) 1 applic TP DAILY [facility] Last Admin: 03/16/17 11:40 Dose: 1 applic Tamsulosin HCl (Flomax -) 0.4 mg PO DAILY@0830 [facility] Last Admin: 03/16/17 11:35 Dose: 0.4 mg - Objective Vital Signs: Vital Signs Temperature 98.8 F 03/16/17 08:41 Pulse Rate 62 03/16/17 11:52 Respiratory Rate 20 03/16/17 08:41 Blood Pressure 145/61 03/16/17 08:41 O2 Sat by Pulse Oximetry (%) 96 03/16/17 12:00 Eyes: Yes: WNL, Conjunctiva Clear, EOM Intact HENT: Yes: WNL, Atraumatic, Normocephalic Neck: Yes: WNL, Supple, Trachea Midline Cardiovascular: Yes: WNL, Regular Rate and Rhythm Respiratory: Yes: Diminished Gastrointestinal: Yes: WNL, Normal Bowel Sounds Genitourinary: Yes: WNL Musculoskeletal: Yes: WNL Extremities: Yes: WNL Edema: Yes Edema: LLE: 1+, RLE: 1+ Integumentary: Yes: WNL Neurological: Yes: WNL, Alert, Oriented ...Motor Strength: WNL Psychiatric: Yes: WNL Labs: CBC, BMP 03/15/17 08:20 03/16/17 07:50 INR, PTT INR 0.92 (0.82-1.09) 03/08/17 03:10 Assessment/Plan 89 year old man with a history of HTN, HLD, CAD prior stents, Chronic HF ( unknown type), past CVA/TIA, COPD, Prostate Ca, PVD admitted sob, AMS. SOB-primarily secondary to COPD -still wheezing and coughing -echo showed no sig structural heart disease, normal LV function, no sig valvular abnl, no change from echo 2015 -overall euvolemic -hold off on further lasix at this time, bun/creat verenice today -dose Lasix prn -pulmonary following AMS-unclear etiology, h/o CVA -has remained awake and alert -as per PMD CAD-troponin did not significantly trend up, unlikely type 1 UT -on Aggrenox, ok to use this for CAD (ASA) -no bblocker given h/o sig conduction disease -cont Lipitor HTN-variable but overall improving -cont Losartan and monitor creatinine -cont norvasc HLD -cont Lipitor Carotid stenosis-with reported stent 2 years ago -cont asa and statin
[2017-03-16] MEDS: hydrALAZINE HCL 10 MG TABLET PO SCH ×2 (13:04→21:31)
[2017-03-16] MEDS ORDERED: LOPERAMIDE HCL 2 MG CAPSULE PO PRN (13:36)
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
--- NOTE | 2017-03-16 15:48 | PN ---
Progress Note, Physician History of Present Illness: says he is ok but b breathing is lousy - Current Medication List Current Medications: Active Medications Albuterol/Ipratropium (Duoneb -) 1 amp NEB QIDR [facility] Last Admin: 03/16/17 11:45 Dose: 1 amp Amlodipine Besylate (Norvasc -) 10 mg PO DAILY [facility] Last Admin: 03/16/17 11:39 Dose: 10 mg Atorvastatin Calcium (Lipitor -) [address] [facility] Last Admin: 03/15/17 21:38 Dose: 10 mg Bacitracin (Bacitracin -) 1 applic TP DAILY [facility] Cholestyramine Resin (Questran Light Packet -) 4 gm PO BID [facility] Last Admin: 03/16/17 11:37 Dose: 4 gm Dipyridamole/Aspirin (Aggrenox -) 1 combo PO BID [facility] Last Admin: 03/16/17 11:38 Dose: 1 combo Heparin Sodium (Porcine) (Heparin -) 5,000 unit SQ TID [facility] Last Admin: 03/16/17 06:11 Dose: 5,000 unit Hydralazine HCl (Apresoline -) 10 mg PO BID [facility] Last Admin: 03/16/17 13:04 Dose: 10 mg Lactobacillus Acidophilus (Bacid -) 1 tab PO BID [facility] Last Admin: 03/16/17 11:38 Dose: 1 tab Levetiracetam (Keppra -) 750 mg PO BID [facility] Last Admin: 03/16/17 11:39 Dose: 750 mg Loperamide HCl (Imodium -) 2 mg PO Q8H PRN PRN Reason: DIARRHEA Methylprednisolone Sodium Succinate (Solu-Medrol -) 20 mg IVPB Q8H-IV [facility] Last Admin: 03/16/17 11:42 Dose: 20 mg Montelukast Sodium (Singulair -) [address] [facility] Last Admin: 03/15/17 21:38 Dose: 10 mg Multi-Ingredient Ointment (Zinc Oxide) 1 applic TP BID [facility] Last Admin: 03/16/17 11:42 Dose: 1 applic Nystatin (Nystop Powder -) 1 applic TP DAILY [facility] Last Admin: 03/16/17 11:40 Dose: 1 applic Tamsulosin HCl (Flomax -) 0.4 mg PO DAILY@0830 [facility] Last Admin: 03/16/17 11:35 Dose: 0.4 mg - Objective Vital Signs: Vital Signs Temperature 98.8 F 03/16/17 08:41 Pulse Rate 62 03/16/17 11:52 Respiratory Rate 20 03/16/17 08:41 Blood Pressure 145/61 03/16/17 08:41 O2 Sat by Pulse Oximetry (%) 96 03/16/17 12:00 Constitutional: Yes: No Distress, Calm Cardiovascular: Yes: Regular Rate and Rhythm Respiratory: Yes: Regular, On BiPap, On Nasal O2, Poor Air Entry, Rhonchi Gastrointestinal: Yes: Normal Bowel Sounds, Soft Musculoskeletal: Yes: WNL Extremities: Yes: WNL Neurological: Yes: Alert, Oriented Psychiatric: Yes: Alert, Oriented Labs: CBC, BMP 03/15/17 08:20 03/16/17 07:50 INR, PTT INR 0.92 (0.82-1.09) 03/08/17 03:10 Assessment/Plan Problem List - Problems (1) COPD (chronic obstructive pulmonary disease) Code(s): J44.9 - CHRONIC OBSTRUCTIVE PULMONARY DISEASE, UNSPECIFIED (2) Elevated troponin Code(s): R74.8 - ABNORMAL LEVELS OF OTHER SERUM ENZYMES (3) Pneumonia Code(s): J18.9 - PNEUMONIA, UNSPECIFIED ORGANISM (4) Acute respiratory failure Code(s): J96.00 - ACUTE RESPIRATORY FAILURE, UNSP W HYPOXIA OR HYPERCAPNIA plan agree with stopping abx resp support rest continue current mgmt close watch on wbc
--- NOTE | 2017-03-16 16:10 | PN ---
Progress Note, Physician History of Present Illness: Pt seen and examined at bedside. He is awake and alert. He has no complaints today. - Current Medication List Current Medications: Active Medications Albuterol/Ipratropium (Duoneb -) 1 amp NEB QIDR [facility] Last Admin: 03/16/17 11:45 Dose: 1 amp Amlodipine Besylate (Norvasc -) 10 mg PO DAILY [facility] Last Admin: 03/16/17 11:39 Dose: 10 mg Atorvastatin Calcium (Lipitor -) 10 mg PO HS [facility] Last Admin: 03/15/17 21:38 Dose: 10 mg Bacitracin (Bacitracin -) 1 applic TP DAILY [facility] Cholestyramine Resin (Questran Light Packet -) 4 gm PO BID [facility] Last Admin: 03/16/17 11:37 Dose: 4 gm Dipyridamole/Aspirin (Aggrenox -) 1 combo PO BID [facility] Last Admin: 03/16/17 11:38 Dose: 1 combo Heparin Sodium (Porcine) (Heparin -) 5,000 unit SQ TID [facility] Last Admin: 03/16/17 06:11 Dose: 5,000 unit Hydralazine HCl (Apresoline -) 10 mg PO BID [facility] Last Admin: 03/16/17 13:04 Dose: 10 mg Lactobacillus Acidophilus (Bacid -) 1 tab PO BID [facility] Last Admin: 03/16/17 11:38 Dose: 1 tab Levetiracetam (Keppra -) 750 mg PO BID [facility] Last Admin: 03/16/17 11:39 Dose: 750 mg Loperamide HCl (Imodium -) 2 mg PO Q8H PRN PRN Reason: DIARRHEA Methylprednisolone Sodium Succinate (Solu-Medrol -) 20 mg IVPB Q8H-IV [facility] Last Admin: 03/16/17 11:42 Dose: 20 mg Montelukast Sodium (Singulair -) 10 mg PO HS [facility] Last Admin: 03/15/17 21:38 Dose: 10 mg Multi-Ingredient Ointment (Zinc Oxide) 1 applic TP BID [facility] Last Admin: 03/16/17 11:42 Dose: 1 applic Nystatin (Nystop Powder -) 1 applic TP DAILY [facility] Last Admin: 03/16/17 11:40 Dose: 1 applic Tamsulosin HCl (Flomax -) 0.4 mg PO DAILY@0830 [facility] Last Admin: 03/16/17 11:35 Dose: 0.4 mg - Objective Vital Signs: Vital Signs Temperature 98.8 F 03/16/17 08:41 Pulse Rate 62 03/16/17 11:52 Respiratory Rate 20 03/16/17 08:41 Blood Pressure 145/61 03/16/17 08:41 O2 Sat by Pulse Oximetry (%) 96 03/16/17 12:00 Constitutional: Yes: Calm Eyes: Yes: Conjunctiva Clear HENT: Yes: Atraumatic Neck: Yes: Supple Cardiovascular: Yes: S1, S2 Respiratory: Yes: CTA Bilaterally Gastrointestinal: Yes: Normal Bowel Sounds, Soft Genitourinary: Yes: WNL Edema: Yes Edema: LLE: 1+, RLE: 1+ Neurological: Yes: Oriented Psychiatric: Yes: Oriented Labs: CBC, BMP 03/15/17 08:20 03/16/17 07:50 INR, PTT INR 0.92 (0.82-1.09) 03/08/17 03:10 Problem List - Problems (1) YEISON (acute kidney injury) Code(s): N17.9 - ACUTE KIDNEY FAILURE, UNSPECIFIED (2) COPD (chronic obstructive pulmonary disease) Code(s): J44.9 - CHRONIC OBSTRUCTIVE PULMONARY DISEASE, UNSPECIFIED Qualifiers : COPD type: COPD with acute lower respiratory infection Qualified Code(s): J44.0 - Chronic obstructive pulmonary disease with acute lower respiratory infection (3) Sepsis Code(s): A41.9 - SEPSIS, UNSPECIFIED ORGANISM Assessment/Plan Current Medications Generic Name Dose Route Start Last Admin Trade Name Freq PRN Reason Stop Dose Admin Albuterol/Ipratropium 1 amp 03/08/17 06:00 03/16/17 11:45 Duoneb - NEB 1 amp QIDR CAREY Administration Amlodipine Besylate 10 mg 03/16/17 10:00 03/16/17 11:39 Norvasc - PO 10 mg DAILY [facility] Administration Atorvastatin Calcium 10 mg 03/09/17 22:00 03/15/17 21:38 Lipitor - PO 10 mg HS [facility] Administration Bacitracin 1 applic 03/16/17 13:45 Bacitracin - TP DAILY [facility] Cholestyramine Resin 4 gm 03/12/17 10:00 03/16/17 11:37 Questran Light Packet - PO 4 gm BID [facility] Administration Dipyridamole/Aspirin 1 combo 03/08/17 10:00 03/16/17 11:38 Aggrenox - PO 1 combo BID [facility] Administration Heparin Sodium (Porcine) 5,000 unit 03/15/17 22:00 03/16/17 06:11 Heparin - SQ 5,000 unit TID [facility] Administration Hydralazine HCl 10 mg 03/15/17 22:00 03/16/17 13:04 Apresoline - PO 10 mg BID [facility] Administration Lactobacillus Acidophilus 1 tab 03/11/17 22:00 03/16/17 11:38 Bacid - PO 1 tab BID [facility] Administration Levetiracetam 750 mg 03/08/17 10:00 03/16/17 11:39 Keppra - PO 750 mg BID [facility] Administration Loperamide HCl 2 mg 03/16/17 13:36 Imodium - PO Q8H PRN DIARRHEA Methylprednisolone Sodium Succinate 20 mg 03/14/17 18:00 03/16/17 11:42 Solu-Medrol - IVPB 20 mg Q8H-IV [facility] Administration Montelukast Sodium 10 mg 03/08/17 22:00 03/15/17 21:38 Singulair - PO 10 mg HS [facility] Administration Multi-Ingredient Ointment 1 applic 03/15/17 22:00 03/16/17 11:42 Zinc Oxide TP 1 applic BID [facility] Administration Nystatin 1 applic 03/15/17 16:00 03/16/17 11:40 Nystop Powder - TP 1 applic DAILY [facility] Administration Tamsulosin HCl 0.4 mg 03/08/17 08:30 03/16/17 11:35 Flomax - PO 0.4 mg DAILY@0830 [facility] Administration Impression 1. YEISON 2. Sepsis 3. hx CHF 4. COPD 5. CAD 6. hx CVA 7. anemia 8. hyperkalemia Plan - potassium is stable - blood pressure is improving - pt had hyperkalemia in the past with losartan - taper steroids as tolerated - repeat labs in am - bipap as needed - will follow pt Dr Avelar
[2017-03-16 16:38] LABS: URINE APPEARANCE SLCLOUDY; URINE BILIRUBIN NEGATIVE (NEGATIVE); URINE BLOOD 3+ (NEGATIVE); URINE COLOR LTYELLOW; URINE GLUCOSE (UA) NEGATIVE (NEGATIVE); URINE KETONE NEGATIVE (NEGATIVE); URINE LEUK ESTERASE TRACE (NEGATIVE); URINE NITRITE NEGATIVE (NEGATIVE); URINE PROTEIN NEGATIVE (NEGATIVE); URINE UROBILINOGEN NEGATIVE E.U./dl (0.2-1.0)
[2017-03-16 16:40] LABS: URINE MUCUS RARE; URINE RBC 265 /hpf (0-3); URINE WBC 32 /hpf (3-5)
[2017-03-16] MEDS: BACITRACIN 15 GM TUBE TOPICAL OINTMENT TP SCH (16:41)
[2017-03-16] MEDS: ATORVASTATIN CA 10 MG TABLET (FP) PO SCH (21:32)
[2017-03-16] MEDS: MONTELUKAST NA 10 MG TABLET PO SCH (21:32)
[2017-03-17] MEDS: methylPREDNISolone NA SUCC 40 MG/1 ML VIAL IVPB SCH (01:42)
[2017-03-17] MEDS: HEPARIN NA (PORCINE) 5,000 UNITS/ML 1ML VIAL SQ SCH ×3 (06:07→21:29)
[2017-03-17 08:05] LABS: ANION GAP 9 (8-16); CO2 26 mmol/L (21-32); GLUCOSE,RANDOM 127 mg/dL (74-106)
[2017-03-17] MEDS: TAMSULOSIN HCL 0.4 MG CAP.ER.24H (FP) PO SCH (08:07)
[2017-03-17 08:12] LABS: MCH 29.8 pg (25.7-33.7); MCHC 33.1 g/dl (32.0-35.9); MEAN CELL VOLUME 89.9 fl (80-96); MEAN PLT VOLUME 8.4 fl (7.5-11.1); PLATELET COUNT 128 K/MM3 (134-434); RDW 15.8 % (11.9-15.9); WHITE BLOOD COUNT 16.8 K/mm3 (4.0-10.0)
--- NOTE | 2017-03-17 08:39 | PN ---
Physical Exam: SUBJECTIVE: Patient seen and examined at bedside. Pt continues to complain of slight burning during urination and states he still has diarrhea. Pt slept very well with his Bipap last night. No other complaints. Pt denies headache, chest pain, shortness of breath, abdominal pain, nausea, vomiting, weakness. OBJECTIVE: Vital Signs Period Temp Pulse Resp BP Sys/Bush Pulse Ox Last 24 Hr 97.8 F-98.8 F 62-69 20-20 145-162/60-64 93-96 GENERAL: The patient is awake, alert, and fully oriented, in no acute distress. HEAD: Normal with no signs of trauma. EYES: PERRL, extraocular movements intact, sclera anicteric, conjunctiva clear. No ptosis. ENT: Ears normal, nares patent, oropharynx clear without exudates, moist mucous membranes. NECK: Trachea midline, full range of motion, supple. LUNGS: Bilateral inspiratoty and expiratory wheezing. No crackles. No accessory muscle use. HEART: Slightly distant heart sounds. Regular rate and rhythm, S1, S2 without murmur, rub or gallop. ABDOMEN: Soft, nontender, nondistended, normoactive bowel sounds, no guarding, no rebound, no hepatosplenomegaly, no masses. EXTREMITIES: capillary refill <2 sec bilaterally, warm, well-perfused, 1+ pitting edema bilaterally. NEUROLOGICAL: Cranial nerves II through XII grossly intact. Normal speech, gait not observed. PSYCH: Normal mood, normal affect. SKIN: Warm, dry, normal turgor, no rashes or lesions noted Laboratory Results - last 24 hr 03/16/17 03/16/17 03/17/17 07:50 15:15 06:00 Sodium 140 139 Potassium 5.1 5.1 Chloride 103 104 Carbon Dioxide 26 26 Anion Gap 11 9 BUN 51 H 49 H Creatinine 1.1 1.0 Random Glucose 122 H 127 H Calcium 8.3 L 9.0 Urine Color Ltyellow Urine Appearance Slcloudy Urine pH 5.0 Ur Specific [place] 1.015 Urine Protein Negative Urine Glucose (UA) Negative Urine Ketones Negative Urine Blood 3+ H Urine Nitrite Negative Urine Bilirubin Negative Urine Urobilinogen Negative Ur Leukocyte Esterase Trace H Urine RBC 265 Urine WBC 32 Ur Epithelial Cells Rare Urine Mucus Rare Active Medications Generic Name Dose Route Start Last Admin Trade Name Freq PRN Reason Stop Dose Admin Amlodipine Besylate 10 mg 03/16/17 10:00 03/16/17 11:39 Norvasc - PO 10 mg DAILY CAREY Administration Atorvastatin Calcium 10 mg 03/09/17 22:00 03/16/17 21:32 Lipitor - PO 10 mg HS CAREY Administration Bacitracin 1 applic 03/16/17 13:45 03/16/17 16:41 Bacitracin - TP 1 applic DAILY CAREY Administration Cholestyramine Resin 4 gm 03/12/17 10:00 03/16/17 21:32 Questran Light Packet - PO 4 gm BID CAREY Administration Dipyridamole/Aspirin 1 combo 03/08/17 10:00 03/16/17 21:30 Aggrenox - PO 1 combo BID CAREY Administration Heparin Sodium (Porcine) 5,000 unit 03/15/17 22:00 03/17/17 06:07 Heparin - SQ 5,000 unit TID CAREY Administration Hydralazine HCl 10 mg 03/15/17 22:00 03/16/17 21:31 Apresoline - PO 10 mg BID CAREY Administration Lactobacillus Acidophilus 1 tab 03/11/17 22:00 03/16/17 21:31 Bacid - PO 1 tab BID CAREY Administration Levetiracetam 750 mg 03/08/17 10:00 03/16/17 21:31 Keppra - PO 750 mg BID CAREY Administration Loperamide HCl 2 mg 03/16/17 13:36 03/16/17 17:15 Imodium - PO 2 mg Q8H PRN Administration DIARRHEA Methylprednisolone Sodium Succinate 20 mg 03/14/17 18:00 03/17/17 01:42 Solu-Medrol - IVPB 20 mg Q8H-IV CAREY Administration Montelukast Sodium 10 mg 03/08/17 22:00 03/16/17 21:32 Singulair - PO 10 mg HS CARYE Administration Multi-Ingredient Ointment 1 applic 03/15/17 22:00 03/16/17 21:32 Zinc Oxide TP 1 applic BID CAREY Administration Nystatin 1 applic 03/15/17 16:00 03/16/17 11:40 Nystop Powder - TP 1 applic DAILY CAREY Administration Tamsulosin HCl 0.4 mg 03/08/17 08:30 03/17/17 08:07 Flomax - PO 0.4 mg DAILY@0830 CAREY Administration ASSESSMENT/PLAN: 89 y/o gentleman with h/o COPD, CHF, HTN, CAD, COPD, CVA who presented with worsening SOB and was found to have acute resp failure due to acute COPD exacerbation and possible aspiration PNA # Acute resp failure due to COPD exacerbation and possible aspiration PNA. - Wheezing slightly worse this evening. - leukocytosis might be due to steorids - stable on NC. venti mask and BIPAP as needed - Zosyn 2.25mg IVPB Q8 dc'ed by ID Dr. Farley - Singulair 10mg - cont steroid taper Solumedrol - Nebs Solumedrol 20mg IVPB Q8 - CXR today due to worsening insp/expiratory wheeze # YEISON: improved - Cr stable at 1.0-1.2 # Dysuria - UA today (03/15) positive for blood (3+), trace leukocyte esterase, and 7 unine wbcs - Urine culture neg - Zosyn 2.25mg IVPB Q8 dc'ed by ID # HTN: stable - Norvasc increased from 5 to 10mg PO daily # H/o CAD : cont aggrenox . - Not on BB due to conduction abn # Dysphagia : with esophageogram showing dysmotility - EGD to be considered at a future date as pt is currently high risk due to Bipap # HLOC - OB to chair # Diet -Dysphagia Whole diet # DVT ppx -Heparin 5,000 u SQH BID # Erectile Dysfunction -Will refer to outpatient for further care # Continue home meds #FEN -f/u labs -dysphagia whole diet #Dispo Visit type - Emergency Visit Emergency Visit: No - New Patient This patient is new to me today: No - Critical Care Critical Care patient: No
--- NOTE | 2017-03-17 09:57 | PN ---
Progress Note (short form) - Note Progress Note: PULMONARY VSS/AFEBRILE SMILING/SUBJECTIVE IMPROVEMENT N/C O2 ANICTERIC SCATTERED RHONCHI LESS S1S2 BS+ SOFT 1+ EDEMA LABS/MEDS/IMAGING/MICRO/ABG/REVIEWED (1) COPD (chronic obstructive pulmonary disease) Code(s): J44.9 - CHRONIC OBSTRUCTIVE PULMONARY DISEASE, UNSPECIFIED (2) Elevated troponin Code(s): R74.8 - ABNORMAL LEVELS OF OTHER SERUM ENZYMES (3) Pneumonia Code(s): J18.9 - PNEUMONIA, UNSPECIFIED ORGANISM (4) Acute respiratory failure Code(s): J96.00 - ACUTE RESPIRATORY FAILURE, UNSP W HYPOXIA OR HYPERCAPNIA NIPPV if respiratory status worsens Aspiration precautions BD TX ABX Medrol changed to prednisone DNR/DNI R LIYAH SHARMA
[2017-03-17] MEDS: ASPIRIN/DIPYRIDAMOLE 25 MG/200 MG CAPSULE (FP) PO SCH ×2 (10:13→21:29)
[2017-03-17] MEDS: LACTOBACILLUS ACIDOPHILUS 1 EACH TAB (FP) PO SCH ×2 (10:13→22:26)
[2017-03-17] MEDS: hydrALAZINE HCL 10 MG TABLET PO SCH ×2 (10:13→22:23)
[2017-03-17] MEDS: BACITRACIN 15 GM TUBE TOPICAL OINTMENT TP SCH (10:13)
[2017-03-17] MEDS: predniSONE 10 MG TABLET (UD) PO SCH (10:14)
[2017-03-17] MEDS: levETIRAcetam 250 MG TABLET (FP) PO SCH ×2 (10:14→21:44)
[2017-03-17] MEDS: NYSTATIN POWDER 100,000 UNITS/GM - 15 GM TOPICAL POWDER TP SCH (10:15)
[2017-03-17] MEDS: amLODIPine BESYLATE 5 MG TABLET (FP) PO SCH (10:15)
[2017-03-17] MEDS: CHOLESTYRAMINE/ASPARTAME 4 GM PACKET PO SCH ×2 (10:16→21:29)
[2017-03-17] MEDS: ZINC OXIDE 20% TOPICAL OINTMENT 30 GM TUBE TP SCH ×2 (10:16→22:29)
[2017-03-17] MEDS ORDERED: PT OWN MED DRAWER 7, Y5N ONE ×2 (10:43→22:25)
[2017-03-17 10:45] LABS: PLATELET ESTIMATE DECREASED (NORMAL)
--- NOTE | 2017-03-17 13:59 | PN ---
Progress Note, Physician History of Present Illness: stable still feels lousy was not able to do physio - Current Medication List Current Medications: Active Medications Amlodipine Besylate (Norvasc -) 10 mg PO DAILY [facility] Last Admin: 03/17/17 10:15 Dose: 10 mg Atorvastatin Calcium (Lipitor -) 10 mg PO HS [facility] Last Admin: 03/16/17 21:32 Dose: 10 mg Bacitracin (Bacitracin -) 1 applic TP DAILY [facility] Last Admin: 03/17/17 10:13 Dose: 1 applic Cholestyramine Resin (Questran Light Packet -) 4 gm PO BID [facility] Last Admin: 03/17/17 10:16 Dose: 4 gm Dipyridamole/Aspirin (Aggrenox -) 1 combo PO BID [facility] Last Admin: 03/17/17 10:13 Dose: 1 combo Heparin Sodium (Porcine) (Heparin -) 5,000 unit SQ TID [facility] Last Admin: 03/17/17 13:33 Dose: 5,000 unit Hydralazine HCl (Apresoline -) 10 mg PO BID [facility] Last Admin: 03/17/17 10:13 Dose: 10 mg Lactobacillus Acidophilus (Bacid -) 1 tab PO BID [facility] Last Admin: 03/17/17 10:13 Dose: 1 tab Levetiracetam (Keppra -) 750 mg PO BID [facility] Last Admin: 03/17/17 10:14 Dose: 750 mg Loperamide HCl (Imodium -) 2 mg PO Q8H PRN PRN Reason: DIARRHEA Last Admin: 03/16/17 17:15 Dose: 2 mg Montelukast Sodium (Singulair -) 10 mg PO HS [facility] Last Admin: 03/16/17 21:32 Dose: 10 mg Multi-Ingredient Ointment (Zinc Oxide) 1 applic TP BID [facility] Last Admin: 03/17/17 10:16 Dose: 1 applic Nystatin (Nystop Powder -) 1 applic TP DAILY [facility] Last Admin: 03/17/17 10:15 Dose: 1 applic Prednisone (Deltasone -) 30 mg PO DAILY [facility] Last Admin: 03/17/17 10:14 Dose: 30 mg Tamsulosin HCl (Flomax -) 0.4 mg PO DAILY@0830 [facility] Last Admin: 03/17/17 08:07 Dose: 0.4 mg - Objective Vital Signs: Vital Signs Temperature 98.0 F 03/17/17 10:03 Pulse Rate 66 03/17/17 10:32 Respiratory Rate 20 03/17/17 10:03 Blood Pressure 144/70 03/17/17 10:03 O2 Sat by Pulse Oximetry (%) 96 03/17/17 12:10 Constitutional: Yes: Calm, Obese Cardiovascular: Yes: Regular Rate and Rhythm Respiratory: Yes: On Nasal O2, Poor Air Entry Gastrointestinal: Yes: Normal Bowel Sounds, Soft Musculoskeletal: Yes: WNL Extremities: Yes: WNL Neurological: Yes: Alert, Oriented Psychiatric: Yes: Alert Labs: CBC, BMP 03/17/17 06:00 03/17/17 06:00 INR, PTT INR 0.92 (0.82-1.09) 03/08/17 03:10 Assessment/Plan Problem List - Problems (1) COPD (chronic obstructive pulmonary disease) Code(s): J44.9 - CHRONIC OBSTRUCTIVE PULMONARY DISEASE, UNSPECIFIED (2) Elevated troponin Code(s): R74.8 - ABNORMAL LEVELS OF OTHER SERUM ENZYMES (3) Pneumonia Code(s): J18.9 - PNEUMONIA, UNSPECIFIED ORGANISM (4) Acute respiratory failure Code(s): J96.00 - ACUTE RESPIRATORY FAILURE, UNSP W HYPOXIA OR HYPERCAPNIA plan continue monitoring rest as per primary physio
[2017-03-17] MEDS ORDERED: FUROSEMIDE 40 MG/4 ML INJECTABLE VIAL IVPUSH ONE (14:50)
--- NOTE | 2017-03-17 14:52 | PN ---
Physical Exam: SUBJECTIVE: Patient seen and examined at bedside. No overnight events. No new complaints. Breathing continues to be labored. Denies CP,NAVARRETE,palpitations, Abd. pain, N/V. OBJECTIVE: Vital Signs Period Temp Pulse Resp BP Sys/Bush Pulse Ox Last 24 Hr 97.8 F-98.4 F 64-68 20-20 144-162/60-70 93-96 GENERAL: awake and alert, NAD HEAD: AT/NC EYES: PERRL, EOMI, sclera anicteric, conjunctiva clear. No ptosis. NECK:Supple, no jvd LUNGS:scattered rhonci, expiratory wheezing. HEART: RRR, S1S2 ABDOMEN: Soft,obese NT, ND, BS(+) EXTREMITIES: 2+ pulses, warm, well-perfused, 1+ Lower ext. edema. NEUROLOGICAL: Cranial nerves II through XII grossly intact. Normal speech, gait not observed. Laboratory Results - last 24 hr 03/16/17 03/17/17 03/17/17 15:15 06:00 06:00 WBC 16.8 H RBC 4.02 Hgb 12.0 Hct 36.1 MCV 89.9 MCHC 33.1 RDW 15.8 Plt Count 128 L MPV 8.4 Neutrophils % 95.0 H Lymphocytes % 1.0 L Monocytes % 3.0 L D Differential Comment Manual diff done Platelet Estimate Decreased Sodium 139 Potassium 5.1 Chloride 104 Carbon Dioxide 26 Anion Gap 9 BUN 49 H Creatinine 1.0 Random Glucose 127 H Calcium 9.0 Urine Color Ltyellow Urine Appearance Slcloudy Urine pH 5.0 Ur Specific [place] 1.015 Urine Protein Negative Urine Glucose (UA) Negative Urine Ketones Negative Urine Blood 3+ H Urine Nitrite Negative Urine Bilirubin Negative Urine Urobilinogen Negative Ur Leukocyte Esterase Trace H Urine RBC 265 Urine WBC 32 Ur Epithelial Cells Rare Urine Mucus Rare Active Medications Generic Name Dose Route Start Last Admin Trade Name Freq PRN Reason Stop Dose Admin Amlodipine Besylate 10 mg 03/16/17 10:00 03/17/17 10:15 Norvasc - PO 10 mg DAILY CAREY Administration Atorvastatin Calcium 10 mg 03/09/17 22:00 03/16/17 21:32 Lipitor - PO 10 mg HS CAREY Administration Bacitracin 1 applic 03/16/17 13:45 03/17/17 10:13 Bacitracin - TP 1 applic DAILY CAREY Administration Cholestyramine Resin 4 gm 03/12/17 10:00 03/17/17 10:16 Questran Light Packet - PO 4 gm BID CAREY Administration Dipyridamole/Aspirin 1 combo 03/08/17 10:00 03/17/17 10:13 Aggrenox - PO 1 combo BID CAREY Administration Heparin Sodium (Porcine) 5,000 unit 03/15/17 22:00 03/17/17 13:33 Heparin - SQ 5,000 unit TID CAREY Administration Hydralazine HCl 10 mg 03/15/17 22:00 03/17/17 10:13 Apresoline - PO 10 mg BID CAREY Administration Lactobacillus Acidophilus 1 tab 03/11/17 22:00 03/17/17 10:13 Bacid - PO 1 tab BID CAREY Administration Levetiracetam 750 mg 03/08/17 10:00 03/17/17 10:14 Keppra - PO 750 mg BID CAREY Administration Loperamide HCl 2 mg 03/16/17 13:36 03/16/17 17:15 Imodium - PO 2 mg Q8H PRN Administration DIARRHEA Montelukast Sodium 10 mg 03/08/17 22:00 03/16/17 21:32 Singulair - PO 10 mg HS CAREY Administration Multi-Ingredient Ointment 1 applic 03/15/17 22:00 03/17/17 10:16 Zinc Oxide TP 1 applic BID CAREY Administration Nystatin 1 applic 03/15/17 16:00 03/17/17 10:15 Nystop Powder - TP 1 applic DAILY CAREY Administration Prednisone 30 mg 03/17/17 10:00 03/17/17 10:14 Deltasone - PO 30 mg DAILY CAREY Administration Tamsulosin HCl 0.4 mg 03/08/17 08:30 03/17/17 08:07 Flomax - PO 0.4 mg DAILY@0830 CAREY Administration ASSESSMENT/PLAN: 89 year old male with significant PMHx of COPD, CHF, CAD, COPD, CVA, brought to the emergency room by EMS due to shortness of breath, found to be in acute respiratory failure and hypotensive. Admitted for sepsis secondary to pneumonia Problem List - Problems (1) YEISON (acute kidney injury) Assessment/Plan: * Improved. * Back to baseline. * Postassium stable. * hyperkalemia in past on Losartan , therefore stopped. (2) Sepsis Assessment/Plan: * secondary to PNA * afebrile * Repeat Blood cultures (-) * completed antibiotic course. (3) COPD (chronic obstructive pulmonary disease) Assessment/Plan: * Continue supplemental O2 * Bipap PRN * taper steroids * Continue Singulair * Duoneb QID (4) CHF (congestive heart failure) Assessment/Plan: * Echo-no sig structural heart disease, normal LV function, no sig valvular abnl , no change from echo 2014 * Cardio consult appreciated * Losartan 50mg PO daily discontinued. * Sounded congested today will give one time Lasix 20mg IV (5) CVA (cerebral vascular accident) Assessment/Plan: * Continue Aggrenox and Lipitor. * Keppra 750mg PO BID (6) CAD (coronary artery disease) Assessment/Plan: * Continue Lipitor and aggrenox * NO BB 2/2 h/o conduction disease. (7) HTN (hypertension) Assessment/Plan: * Continue Amlodipine 5mg PO daily * started on Hydralazine 10mg BID (8) DVT prophylaxis Assessment/Plan: * Heparin 5000 units BID SQ Visit type - Emergency Visit Emergency Visit: Yes ED Registration Date: 03/08/17 Care time: The patient presented to the Emergency Department on the above date and was hospitalized for further evaluation of their emergent condition. - New Patient This patient is new to me today: No - Critical Care Critical Care patient: No - Discharge Referral Referred to [facility] Med P.C.: No
[2017-03-17] MEDS ORDERED: FUROSEMIDE 40 MG/4 ML INJECTABLE VIAL ONE (15:11)
[2017-03-17] MEDS ORDERED: ALBUTEROL SO4 2.5/IPRATROPIUM 0.5 INH SOL 3 ML VIAL.NEB. NEB PRN (15:22)
--- NOTE | 2017-03-17 16:05 | PN ---
Teaching Attending Note Name of Resident: Ramiro Harley (Nephrology) ATTENDING PHYSICIAN STATEMENT I saw and evaluated the patient. I reviewed the resident's note and discussed the case with the resident. I agree with the resident's findings and plan as documented. Current Medications Generic Name Dose Route Start Last Admin Trade Name Freq PRN Reason Stop Dose Admin Albuterol/Ipratropium 1 amp 03/17/17 15:22 03/17/17 15:54 Duoneb - NEB 1 amp Q6H PRN Administration SHORTNESS OF BREATH Amlodipine Besylate 10 mg 03/16/17 10:00 03/17/17 10:15 Norvasc - PO 10 mg DAILY CAREY Administration Atorvastatin Calcium 10 mg 03/09/17 22:00 03/16/17 21:32 Lipitor - PO 10 mg HS CAREY Administration Bacitracin 1 applic 03/16/17 13:45 03/17/17 10:13 Bacitracin - TP 1 applic DAILY CAREY Administration Cholestyramine Resin 4 gm 03/12/17 10:00 03/17/17 10:16 Questran Light Packet - PO 4 gm BID CAREY Administration Dipyridamole/Aspirin 1 combo 03/08/17 10:00 03/17/17 10:13 Aggrenox - PO 1 combo BID CAREY Administration Heparin Sodium (Porcine) 5,000 unit 03/15/17 22:00 03/17/17 13:33 Heparin - SQ 5,000 unit TID CAREY Administration Hydralazine HCl 10 mg 03/15/17 22:00 03/17/17 10:13 Apresoline - PO 10 mg BID CAREY Administration Lactobacillus Acidophilus 1 tab 03/11/17 22:00 03/17/17 10:13 Bacid - PO 1 tab BID CAREY Administration Levetiracetam 750 mg 03/08/17 10:00 03/17/17 10:14 Keppra - PO 750 mg BID CAREY Administration Loperamide HCl 2 mg 03/16/17 13:36 03/16/17 17:15 Imodium - PO 2 mg Q8H PRN Administration DIARRHEA Montelukast Sodium 10 mg 03/08/17 22:00 03/16/17 21:32 Singulair - PO 10 mg HS CAREY Administration Multi-Ingredient Ointment 1 applic 03/15/17 22:00 03/17/17 10:16 Zinc Oxide TP 1 applic BID CAREY Administration Nystatin 1 applic 03/15/17 16:00 03/17/17 10:15 Nystop Powder - TP 1 applic DAILY CAREY Administration Prednisone 30 mg 03/17/17 10:00 03/17/17 10:14 Deltasone - PO 30 mg DAILY CAREY Administration Tamsulosin HCl 0.4 mg 03/08/17 08:30 03/17/17 08:07 Flomax - PO 0.4 mg DAILY@0830 CAREY Administration Last Vital Signs Temp Pulse Resp BP Pulse Ox 97.8 F 62 20 142/55 96 03/17/17 15:03 03/17/17 15:03 03/17/17 15:03 03/17/17 15:03 03/17/17 12:10 cardio s1s2 reg pulm ronchi GI soft ext trace edema Impression 1. YEISON 2. Sepsis 3. hx CHF 4. COPD 5. CAD 6. hx CVA 7. anemia 8. hyperkalemia Plan - will give dose of lasix - repeat labs in am - monitor blood pressure - taper steroids as tolerated - repeat labs in am - bipap as needed - will follow pt Problem List - Problems (1) YEISON (acute kidney injury) Code(s): N17.9 - ACUTE KIDNEY FAILURE, UNSPECIFIED (2) COPD (chronic obstructive pulmonary disease) Code(s): J44.9 - CHRONIC OBSTRUCTIVE PULMONARY DISEASE, UNSPECIFIED Qualifiers : COPD type: COPD with acute lower respiratory infection Qualified Code(s): J44.0 - Chronic obstructive pulmonary disease with acute lower respiratory infection (3) Sepsis Code(s): A41.9 - SEPSIS, UNSPECIFIED ORGANISM
--- NOTE | 2017-03-17 19:01 | PN ---
Teaching Attending Note Name of Resident: Nathaniel Canas ATTENDING PHYSICIAN STATEMENT I saw and evaluated the patient. I reviewed the resident's note and discussed the case with the resident. I agree with the resident's findings and plan as documented. SUBJECTIVE: seen at 10 am no fever or chills, no abd pain . nO SOB OBJECTIVE: NAD Awake,alert , cooperative CV: RRR Lungs: good air entry. b/l scattered wheezes Ext: no edema ASSESSMENT AND PLAN: 89 y/o gentleman with h/o COPD, CHF,HTN, CAD, COPD, CVA who presented with worsening SOB and was found to have acute resp failure due to acute COPD exacerbation and possible aspiration PNA 1- Acute resp failure due to COPD exacerbation and possible aspiration PNA clinically improved. - cont BIPAP at night and periodically during the day - monitor off ABx -PO steroids and Nebs - dose of lasix today 2- YEISON: improved. stable cr. hyperkalemia resolved cont to hold ARB 3- HTN : improved . cont increased dose of norvasc to 10 cont HZN 10 BID . off losartan now due to hyperkalemia if needed we can increase HZN further 4- Dysuria : no UTI hematuria improved on repaat UA 5- Diarrhea : repeat c diff neg and stool cx neg. no infectious etiology, likely due to abx . and IBS imodium 6- H/o CAD : cont aggrenox . Not on BB due to conduction abn 7- Dysphagia : with esophageogram showing dysmotility . - high risk resp [facility] for EGD at this point 8- HLOC start dc planning. needs rehab
[2017-03-17] MEDS: MONTELUKAST NA 10 MG TABLET PO SCH (21:28)
[2017-03-17] MEDS: ATORVASTATIN CA 10 MG TABLET (FP) PO SCH (21:29)
[2017-03-18] MEDS: HEPARIN NA (PORCINE) 5,000 UNITS/ML 1ML VIAL SQ SCH ×3 (05:46→21:41)
[2017-03-18 08:13] LABS: MCH 30.3 pg (25.7-33.7); MEAN CELL VOLUME 91.7 fl (80-96); MEAN PLT VOLUME 8.4 fl (7.5-11.1); PLATELET COUNT 124 K/MM3 (134-434); RDW 15.7 % (11.9-15.9); WHITE BLOOD COUNT 22.6 K/mm3 (4.0-10.0)
[2017-03-18 08:42] LABS: ANION GAP 9 (8-16); CALCIUM 8.5 mg/dL (8.5-10.1); CO2 26 mmol/L (21-32); GLUCOSE,RANDOM 88 mg/dL (74-106)
[2017-03-18] MEDS ORDERED: PT OWN MED DRAWER 7, Y5N ONE (08:58)
[2017-03-18] MEDS: amLODIPine BESYLATE 5 MG TABLET (FP) PO SCH (09:15)
[2017-03-18] MEDS: CHOLESTYRAMINE/ASPARTAME 4 GM PACKET PO SCH ×2 (09:16→21:41)
[2017-03-18] MEDS: TAMSULOSIN HCL 0.4 MG CAP.ER.24H (FP) PO SCH (09:16)
[2017-03-18] MEDS: predniSONE 10 MG TABLET (UD) PO SCH (09:16)
[2017-03-18] MEDS: levETIRAcetam 250 MG TABLET (FP) PO SCH ×2 (09:16→21:40)
[2017-03-18] MEDS: LACTOBACILLUS ACIDOPHILUS 1 EACH TAB (FP) PO SCH ×2 (09:16→21:39)
[2017-03-18] MEDS: hydrALAZINE HCL 10 MG TABLET PO SCH ×2 (09:17→21:39)
[2017-03-18] MEDS: NYSTATIN POWDER 100,000 UNITS/GM - 15 GM TOPICAL POWDER TP SCH (09:17)
[2017-03-18] MEDS: BACITRACIN 15 GM TUBE TOPICAL OINTMENT TP SCH (09:17)
[2017-03-18] MEDS: ZINC OXIDE 20% TOPICAL OINTMENT 30 GM TUBE TP SCH ×2 (09:17→21:41)
[2017-03-18] MEDS: ASPIRIN/DIPYRIDAMOLE 25 MG/200 MG CAPSULE (FP) PO SCH ×2 (09:20→21:39)
--- NOTE | 2017-03-18 09:29 | PN ---
Progress Note (short form) - Note Progress Note: PULMONARY VSS/AFEBRILE MORE CONGESTED TODAY N/C O2 ANICTERIC SCATTERED RHONCHI S1S2 BS+ SOFT 1+ EDEMA LABS/MEDS/IMAGING/MICRO/ABG/REVIEWED (1) COPD (chronic obstructive pulmonary disease) Code(s): J44.9 - CHRONIC OBSTRUCTIVE PULMONARY DISEASE, UNSPECIFIED (2) Elevated troponin Code(s): R74.8 - ABNORMAL LEVELS OF OTHER SERUM ENZYMES (3) Pneumonia Code(s): J18.9 - PNEUMONIA, UNSPECIFIED ORGANISM (4) Acute respiratory failure Code(s): J96.00 - ACUTE RESPIRATORY FAILURE, UNSP W HYPOXIA OR HYPERCAPNIA NIPPV if respiratory status worsens Aspiration precautions BD TX/CHEST PT/OOB TO CHAIR ABX Medrol changed to prednisone DNR/DNI Elizabeth PELLETIER MD
--- NOTE | 2017-03-18 09:55 | PN ---
Progress Note, Physician - Current Medication List Current Medications: Active Medications Albuterol/Ipratropium (Duoneb -) 1 amp NEB QIDR [facility] Amlodipine Besylate (Norvasc -) 10 mg PO DAILY [facility] Last Admin: 03/18/17 09:15 Dose: 10 mg Atorvastatin Calcium (Lipitor -) 10 mg PO HS [facility] Last Admin: 03/17/17 21:29 Dose: 10 mg Bacitracin (Bacitracin -) 1 applic TP DAILY [facility] Last Admin: 03/18/17 09:17 Dose: 1 applic Cholestyramine Resin (Questran Light Packet -) 4 gm PO BID [facility] Last Admin: 03/18/17 09:16 Dose: 4 gm Dipyridamole/Aspirin (Aggrenox -) 1 combo PO BID [facility] Last Admin: 03/18/17 09:20 Dose: Not Given Heparin Sodium (Porcine) (Heparin -) 5,000 unit SQ TID [facility] Last Admin: 03/18/17 05:46 Dose: 5,000 unit Hydralazine HCl (Apresoline -) 10 mg PO BID [facility] Last Admin: 03/18/17 09:17 Dose: 10 mg Lactobacillus Acidophilus (Bacid -) 1 tab PO BID [facility] Last Admin: 03/18/17 09:16 Dose: 1 tab Levetiracetam (Keppra -) 750 mg PO BID [facility] Last Admin: 03/18/17 09:16 Dose: 750 mg Loperamide HCl (Imodium -) 2 mg PO Q8H PRN PRN Reason: DIARRHEA Last Admin: 03/16/17 17:15 Dose: 2 mg Montelukast Sodium (Singulair -) 10 mg PO [facility] Last Admin: 03/17/17 21:28 Dose: 10 mg Multi-Ingredient Ointment (Zinc Oxide) 1 applic TP BID [facility] Last Admin: 03/18/17 09:17 Dose: 1 applic Nystatin (Nystop Powder -) 1 applic TP DAILY [facility] Last Admin: 03/18/17 09:17 Dose: 1 applic Prednisone (Deltasone -) 30 mg PO DAILY [facility] Last Admin: 03/18/17 09:16 Dose: 30 mg Tamsulosin HCl (Flomax -) 0.4 mg PO DAILY@0830 [facility] Last Admin: 03/18/17 09:16 Dose: 0.4 mg - Objective Vital Signs: Vital Signs Temperature 98 F 07/04/17 06:12 Pulse Rate 62 03/18/17 06:12 Respiratory Rate 20 03/18/17 06:12 Blood Pressure 144/54 03/18/17 06:12 O2 Sat by Pulse Oximetry (%) 96 03/18/17 06:08 Eyes: Yes: WNL, Conjunctiva Clear, EOM Intact HENT: Yes: WNL, Atraumatic, Normocephalic Neck: Yes: WNL, Supple, Trachea Midline Cardiovascular: Yes: WNL, Regular Rate and Rhythm Respiratory: Yes: Diminished Gastrointestinal: Yes: WNL, Normal Bowel Sounds Genitourinary: Yes: WNL Musculoskeletal: Yes: WNL Extremities: Yes: WNL Edema: Yes Edema: LLE: 1+, RLE: 1+ Integumentary: Yes: WNL Neurological: Yes: WNL, Alert, Oriented ...Motor Strength: WNL Psychiatric: Yes: WNL Labs: CBC, BMP 03/18/17 06:10 03/18/17 08:20 INR, PTT INR 0.92 (0.82-1.09) 03/08/17 03:10 Assessment/Plan 89 year old man with a history of HTN, HLD, CAD prior stents, Chronic HF ( unknown type), past CVA/TIA, COPD, Prostate Ca, PVD admitted sob, AMS. SOB-primarily secondary to COPD -still wheezing and coughing -echo showed no sig structural heart disease, normal LV function, no sig valvular abnl, no change from echo 2015 -overall euvolemic -hold off on further lasix at this time, bun/creat verenice today -dose Lasix prn -pulmonary following AMS-unclear etiology, h/o CVA -has remained awake and alert -as per PMD CAD-troponin did not significantly trend up, unlikely type 1 VT -on Aggrenox, ok to use this for CAD (ASA) -no bblocker given h/o sig conduction disease -cont Lipitor HTN-variable but overall improving -cont Losartan and monitor creatinine -cont norvasc HLD -cont Lipitor Carotid stenosis-with reported stent 2 years ago -cont asa and statin
--- NOTE | 2017-03-18 11:13 | PN ---
Progress Note (short form) - Note Progress Note: Subjective: Denies any pain or SOB , used BIPAP at night last night Objective: Vital Signs: Last Vital Signs Temp Pulse Resp BP Pulse Ox 98 F 62 20 144/54 96 03/18/17 06:12 03/18/17 06:12 03/18/17 06:12 03/18/17 06:12 03/18/17 06:08 Laboratory Results - last 24 hr 03/18/17 03/18/17 06:10 08:20 WBC 22.6 H D RBC 3.60 L Hgb 10.9 L Hct 33.0 L MCV 91.7 MCHC 33.0 RDW 15.7 Plt Count 124 L MPV 8.4 Neutrophils % Y Lymphocytes % Y Sodium 141 Potassium 4.2 Chloride 106 Carbon Dioxide 26 Anion Gap 9 BUN 59 H D Creatinine 1.0 Random Glucose 88 D Calcium 8.5 Physical Exam: NAD , Awake,alert , cooperative CV: RRR Lungs: good air entry. course breath sounds and rales Ext: no edema ASSESSMENT AND PLAN: 89 y/o gentleman with h/o COPD, CHF,HTN, CAD, COPD, CVA who presented with worsening SOB and was found to have acute resp failure due to acute COPD exacerbation and possible aspiration PNA 1- Acute resp failure due to COPD exacerbation and possible aspiration PNA vomited yesterday , probably has aspirated again . has increasing rales today on exam - cont BIPAP at night and periodically during the day - monitor off ABx , although leukocytosis has worsened ( could be a stress reaction to aspiration ) . no fever . will hold off resuming ABx -give 20 of PO lasix today -PO steroids and Nebs 2- YEISON: improved. stable cr. hyperkalemia resolved cont to hold ARB 3- HTN : improved . cont increased dose of norvasc to 10 cont HZN 10 BID . off losartan now due to hyperkalemia if needed we can increase HZN further 4- Dysuria : no UTI hematuria ( due to straight cath trauma improved on repaat UA 5- Diarrhea : no infection imodium 6- H/o CAD: cont aggrenox . Not on BB due to conduction abn 7- Dysphagia : with esophageogram showing dysmotility . - high risk resp wiseman for EGD at this point 8- HLOC dicharge planning to rehab . Labs: Imaging: Assessment/Plan: Visit type - Emergency Visit Emergency Visit: Yes ED Registration Date: 03/08/17 Care time: The patient presented to the Emergency Department on the above date and was hospitalized for further evaluation of their emergent condition. - New Patient This patient is new to me today: No - Critical Care Critical Care patient: No
--- NOTE | 2017-03-18 11:14 | PN ---
Progress Note, Physician History of Present Illness: patient still does not feel very well still continues to be sob - Current Medication List Current Medications: Active Medications Albuterol/Ipratropium (Duoneb -) 1 amp NEB QIDR [facility] Amlodipine Besylate (Norvasc -) 10 mg PO DAILY [facility] Last Admin: 03/18/17 09:15 Dose: 10 mg Atorvastatin Calcium (Lipitor -) 10 mg PO HS [facility] Last Admin: 03/17/17 21:29 Dose: 10 mg Bacitracin (Bacitracin -) 1 applic TP DAILY [facility] Last Admin: 03/18/17 09:17 Dose: 1 applic Cholestyramine Resin (Questran Light Packet -) 4 gm PO BID [facility] Last Admin: 03/18/17 09:16 Dose: 4 gm Dipyridamole/Aspirin (Aggrenox -) 1 combo PO BID [facility] Last Admin: 03/18/17 09:20 Dose: Not Given Furosemide (Lasix -) 20 mg PO ONCE ONE Stop: 03/18/17 11:06 Heparin Sodium (Porcine) (Heparin -) 5,000 unit SQ TID [facility] Last Admin: 03/18/17 05:46 Dose: 5,000 unit Hydralazine HCl (Apresoline -) 10 mg PO BID [facility] Last Admin: 03/18/17 09:17 Dose: 10 mg Lactobacillus Acidophilus (Bacid -) 1 tab PO BID [facility] Last Admin: 03/18/17 09:16 Dose: 1 tab Levetiracetam (Keppra -) 750 mg PO BID [facility] Last Admin: 03/18/17 09:16 Dose: 750 mg Loperamide HCl (Imodium -) 2 mg PO Q8H PRN PRN Reason: DIARRHEA Last Admin: 03/16/17 17:15 Dose: 2 mg Montelukast Sodium (Singulair -) 10 mg PO [facility] Last Admin: 03/17/17 21:28 Dose: 10 mg Multi-Ingredient Ointment (Zinc Oxide) 1 applic TP BID [facility] Last Admin: 03/18/17 09:17 Dose: 1 applic Nystatin (Nystop Powder -) 1 applic TP DAILY [facility] Last Admin: 03/18/17 09:17 Dose: 1 applic Prednisone (Deltasone -) 30 mg PO DAILY [facility] Last Admin: 03/18/17 09:16 Dose: 30 mg Tamsulosin HCl (Flomax -) 0.4 mg PO DAILY@0830 [facility] Last Admin: 03/18/17 09:16 Dose: 0.4 mg - Objective Vital Signs: Vital Signs Temperature 98 F 03/18/17 06:12 Pulse Rate 62 03/18/17 06:12 Respiratory Rate 20 03/18/17 06:12 Blood Pressure 144/54 03/18/17 06:12 O2 Sat by Pulse Oximetry (%) 96 03/18/17 06:08 Constitutional: Yes: Calm, Mild Distress, Obese Cardiovascular: Yes: Regular Rate and Rhythm Respiratory: Yes: On BiPap, On Nasal O2, Poor Air Entry, Rhonchi Gastrointestinal: Yes: Normal Bowel Sounds, Soft Musculoskeletal: Yes: Other Extremities: Yes: Other Neurological: Yes: Alert Labs: CBC, BMP 03/18/17 06:10 03/18/17 08:20 INR, PTT INR 0.92 (0.82-1.09) 03/08/17 03:10 - ....Imaging Chest X-ray: Report Reviewed, Image Reviewed Assessment/Plan Problem List - Problems (1) COPD (chronic obstructive pulmonary disease) Code(s): J44.9 - CHRONIC OBSTRUCTIVE PULMONARY DISEASE, UNSPECIFIED (2) Elevated troponin Code(s): R74.8 - ABNORMAL LEVELS OF OTHER SERUM ENZYMES (3) Pneumonia Code(s): J18.9 - PNEUMONIA, UNSPECIFIED ORGANISM (4) Acute respiratory failure Code(s): J96.00 - ACUTE RESPIRATORY FAILURE, UNSP W HYPOXIA OR HYPERCAPNIA wbc has increased close watch on the same plan continue current mgmt will see how patient does incentive shelby rest as per primary
[2017-03-18] MEDS: ALBUTEROL SO4 2.5/IPRATROPIUM 0.5 INH SOL 3 ML VIAL.NEB. NEB SCH ×2 (11:21→23:01)
[2017-03-18] MEDS ORDERED: FUROSEMIDE 20 MG TABLET (FP) PO ONE (12:00)
[2017-03-18 13:19] LABS: PLATELET ESTIMATE SLT DECREASED (NORMAL)
--- NOTE | 2017-03-18 15:25 | PN ---
Progress Note, Physician History of Present Illness: Pt seen and examined at bedside. He is awake. He complains of shortness of breath. - Current Medication List Current Medications: Active Medications Albuterol/Ipratropium (Duoneb -) 1 amp NEB QIDR [facility] Last Admin: 03/18/17 11:21 Dose: 1 amp Amlodipine Besylate (Norvasc -) 10 mg PO DAILY [facility] Last Admin: 03/18/17 09:15 Dose: 10 mg Atorvastatin Calcium (Lipitor -) 10 mg PO HS [facility] Last Admin: 03/17/17 21:29 Dose: 10 mg Bacitracin (Bacitracin -) 1 applic TP DAILY [facility] Last Admin: 03/18/17 09:17 Dose: 1 applic Cholestyramine Resin (Questran Light Packet -) 4 gm PO BID [facility] Last Admin: 03/18/17 09:16 Dose: 4 gm Dipyridamole/Aspirin (Aggrenox -) 1 combo PO BID [facility] Last Admin: 03/18/17 09:20 Dose: Not Given Heparin Sodium (Porcine) (Heparin -) 5,000 unit SQ TID [facility] Last Admin: 03/18/17 13:33 Dose: 5,000 unit Hydralazine HCl (Apresoline -) 10 mg PO BID [facility] Last Admin: 03/18/17 09:17 Dose: 10 mg Lactobacillus Acidophilus (Bacid -) 1 tab PO BID [facility] Last Admin: 03/18/17 09:16 Dose: 1 tab Levetiracetam (Keppra -) 750 mg PO BID [facility] Last Admin: 03/18/17 09:16 Dose: 750 mg Loperamide HCl (Imodium -) 2 mg PO Q8H PRN PRN Reason: DIARRHEA Last Admin: 03/16/17 17:15 Dose: 2 mg Montelukast Sodium (Singulair -) 10 mg PO HS [facility] Last Admin: 03/17/17 21:28 Dose: 10 mg Multi-Ingredient Ointment (Zinc Oxide) 1 applic TP BID [facility] Last Admin: 03/18/17 09:17 Dose: 1 applic Nystatin (Nystop Powder -) 1 applic TP DAILY [facility] 234 [facility] Last Admin: 03/18/17 09:17 Dose: 1 applic Prednisone (Deltasone -) 30 mg PO DAILY [facility] Last Admin: 03/18/17 09:16 Dose: 30 mg Tamsulosin HCl (Flomax -) 0.4 mg PO DAILY@0830 [facility] Last Admin: 03/18/17 09:16 Dose: 0.4 mg - Objective Vital Signs: Vital Signs Temperature 98.1 F 03/18/17 09:00 Pulse Rate 60 03/18/17 11:15 Respiratory Rate 18 03/18/17 09:00 Blood Pressure 135/58 03/18/17 09:00 O2 Sat by Pulse Oximetry (%) 93 L 03/18/17 11:15 Constitutional: Yes: Calm Eyes: Yes: Conjunctiva Clear HENT: Yes: Atraumatic Cardiovascular: Yes: S1, S2 Respiratory: Yes: On Nasal O2, Wheezes Gastrointestinal: Yes: Soft, Abdomen, Obese Genitourinary: Yes: WNL Musculoskeletal: Yes: Muscle Weakness Edema: LLE: Trace, RLE: Trace Neurological: Yes: Oriented Psychiatric: Yes: Oriented Labs: CBC, BMP 03/18/17 06:10 03/18/17 08:20 INR, PTT INR 0.92 (0.82-1.09) 03/08/17 03:10 Problem List - Problems (1) YEISON (acute kidney injury) Code(s): N17.9 - ACUTE KIDNEY FAILURE, UNSPECIFIED (2) COPD (chronic obstructive pulmonary disease) Code(s): J44.9 - CHRONIC OBSTRUCTIVE PULMONARY DISEASE, UNSPECIFIED Qualifiers : COPD type: COPD with acute lower respiratory infection Qualified Code(s): J44.0 - Chronic obstructive pulmonary disease with acute lower respiratory infection (3) Sepsis Code(s): A41.9 - SEPSIS, UNSPECIFIED ORGANISM Assessment/Plan Current Medications Generic Name Dose Route Start Last Admin Trade Name Jordon PRN Reason Stop Dose Admin Albuterol/Ipratropium 1 amp 03/18/17 12:00 03/18/17 11:21 Duoneb - NEB 1 amp QIDR [facility] Administration Amlodipine Besylate 10 mg 03/16/17 10:00 03/18/17 09:15 Norvasc - PO 10 mg DAILY [facility] Administration Atorvastatin Calcium 10 mg 03/09/17 22:00 03/17/17 21:29 Lipitor - PO 10 mg HS [facility] Administration Bacitracin 1 applic 03/16/17 13:45 03/18/17 09:17 Bacitracin - TP 1 applic DAILY [facility] Administration Cholestyramine Resin 4 gm 03/12/17 10:00 03/18/17 09:16 Questran Light Packet - PO 4 gm BID [facility] Administration Dipyridamole/Aspirin 1 combo 03/08/17 10:00 03/18/17 09:20 Aggrenox - PO Not Given BID [facility] Heparin Sodium (Porcine) 5,000 unit 03/15/17 22:00 03/18/17 13:33 Heparin - SQ 5,000 unit TID [facility] Administration Hydralazine HCl 10 mg 03/15/17 22:00 03/18/17 09:17 Apresoline - PO 10 mg BID [facility] Administration Lactobacillus Acidophilus 1 tab 03/11/17 22:00 03/18/17 09:16 Bacid - PO 1 tab BID [facility] Administration Levetiracetam 750 mg 03/08/17 10:00 03/18/17 09:16 Keppra - PO 750 mg BID [facility] Administration Loperamide HCl 2 mg 03/16/17 13:36 03/16/17 17:15 Imodium - PO 2 mg Q8H PRN Administration DIARRHEA Montelukast Sodium 10 mg 03/08/17 22:00 03/17/17 21:28 Singulair - PO 10 mg HS [facility] Administration Multi-Ingredient Ointment 1 applic 03/15/17 22:00 03/18/17 09:17 Zinc Oxide TP 1 applic BID [facility] Administration Nystatin 1 applic 03/15/17 16:00 03/18/17 09:17 Nystop Powder - TP 1 applic DAILY [facility] Administration Prednisone 30 mg 03/17/17 10:00 03/18/17 09:16 Deltasone - PO 30 mg DAILY [facility] Administration Tamsulosin HCl 0.4 mg 03/08/17 08:30 03/18/17 09:16 Flomax - PO 0.4 mg DAILY@0830 [facility] Administration Impression 1. YEISON 2. Sepsis 3. hx CHF 4. COPD 5. CAD 6. hx CVA 7. anemia 8. hyperkalemia Plan - cxr report reviewed - will continue to monitor renal function - agree with dose of lasix, he also received a dose yesterday - cont with hydralazine - pt had hyperkalemia in the past with losartan - taper steroids as tolerated - repeat labs in am - bipap as needed - will follow pt Dr Avelar
[2017-03-18] MEDS: MONTELUKAST NA 10 MG TABLET PO SCH (21:41)
[2017-03-18] MEDS: ATORVASTATIN CA 10 MG TABLET (FP) PO SCH (21:41)
[2017-03-19] MEDS: HEPARIN NA (PORCINE) 5,000 UNITS/ML 1ML VIAL SQ SCH ×2 (06:09→15:04)
[2017-03-19] MEDS: ALBUTEROL SO4 2.5/IPRATROPIUM 0.5 INH SOL 3 ML VIAL.NEB. NEB SCH ×3 (06:50→15:05)
[2017-03-19 08:22] LABS: BASOPHIL 0.1 % (0-2.0); EOSINOPHIL 0.2 % (0-4.5); MCH 29.7 pg (25.7-33.7); MCHC 32.4 g/dl (32.0-35.9); MEAN CELL VOLUME 91.7 fl (80-96); MEAN PLT VOLUME 8.5 fl (7.5-11.1); NEUTROPHILS 90.9 % (42.8-82.8); PLATELET COUNT 129 K/MM3 (134-434); RDW 15.7 % (11.9-15.9); WHITE BLOOD COUNT 17.4 K/mm3 (4.0-10.0)
[2017-03-19 09:07] LABS: ANION GAP 7 (8-16); CALCIUM 8.6 mg/dL (8.5-10.1); CO2 26 mmol/L (21-32); GLUCOSE,RANDOM 96 mg/dL (74-106)
[2017-03-19] MEDS: TAMSULOSIN HCL 0.4 MG CAP.ER.24H (FP) PO SCH (09:14)
--- NOTE | 2017-03-19 10:01 | PN ---
Progress Note, Physician Chief Complaint: feels short of breath this AM No acute distress - Current Medication List Current Medications: Active Medications Albuterol/Ipratropium (Duoneb -) 1 amp NEB QIDR [facility] Last Admin: 03/19/17 06:50 Dose: 1 amp Amlodipine Besylate (Norvasc -) 10 mg PO DAILY [facility] Last Admin: 03/18/17 09:15 Dose: 10 mg Atorvastatin Calcium (Lipitor -) 10 mg PO HS [facility] Last Admin: 03/18/17 21:41 Dose: 10 mg Bacitracin (Bacitracin -) 1 applic TP DAILY [facility] Last Admin: 03/18/17 09:17 Dose: 1 applic Cholestyramine Resin (Questran Light Packet -) 4 gm PO BID [facility] Last Admin: 03/18/17 21:41 Dose: 4 gm Dipyridamole/Aspirin (Aggrenox -) 1 combo PO BID [facility] Last Admin: 03/18/17 21:39 Dose: 1 combo Heparin Sodium (Porcine) (Heparin -) 5,000 unit SQ TID [facility] Last Admin: 03/19/17 06:09 Dose: 5,000 unit Hydralazine HCl (Apresoline -) 10 mg PO BID [facility] Last Admin: 03/18/17 21:39 Dose: 10 mg Lactobacillus Acidophilus (Bacid -) 1 tab PO BID [facility] Last Admin: 03/18/17 21:39 Dose: 1 tab Levetiracetam (Keppra -) 750 mg PO BID [facility] Last Admin: 03/18/17 21:40 Dose: 750 mg Loperamide HCl (Imodium -) 2 mg PO Q8H PRN PRN Reason: DIARRHEA Last Admin: 03/16/17 17:15 Dose: 2 mg Montelukast Sodium (Singulair -) 10 mg PO HS [facility] Last Admin: 03/18/17 21:41 Dose: 10 mg Multi-Ingredient Ointment (Zinc Oxide) 1 applic TP BID [facility] Last Admin: 03/18/17 21:41 Dose: 1 applic Nystatin (Nystop Powder -) 1 applic TP DAILY [facility] Last Admin: 03/18/17 09:17 Dose: 1 applic Prednisone (Deltasone -) 30 mg PO DAILY [facility] Last Admin: 03/18/17 09:16 Dose: 30 mg Tamsulosin HCl (Flomax -) 0.4 mg PO DAILY@0830 [facility] Last Admin: 03/18/17 09:16 Dose: 0.4 mg - Objective Vital Signs: Vital Signs Temperature 98.1 F 03/19/17 06:15 Pulse Rate 62 03/19/17 06:15 Respiratory Rate 20 03/19/17 06:15 Blood Pressure 144/53 03/19/17 06:15 O2 Sat by Pulse Oximetry (%) 98 03/19/17 00:32 Constitutional: Yes: No Distress Eyes: Yes: Conjunctiva Clear Cardiovascular: Yes: Regular Rate and Rhythm Respiratory: Yes: Rhonchi, Other (scattered mild expiratory wheezing) Gastrointestinal: Yes: Soft, Abdomen, Obese Edema: Yes Edema: LLE: 1+, RLE: 1+ Neurological: Yes: Alert Labs: CBC, BMP 03/19/17 06:10 03/19/17 06:10 INR, PTT INR 0.92 (0.82-1.09) 03/08/17 03:10 Assessment/Plan Assessment/Plan 89 year old man with a history of HTN, HLD, CAD prior stents, Chronic diastolic CHF, past CVA/TIA, COPD, Prostate Ca, PVD admitted sob, AMS. SOB-primarily secondary to COPD -still wheezing and coughing -echo showed no sig structural heart disease, normal LV function, no sig valvular abnl, no change from echo 2014 -dose Lasix prn -pulmonary following AMS-unclear etiology, h/o CVA -has remained awake and alert -as per PMD CAD-troponin did not significantly trend up, unlikely type 1 AL -on Aggrenox, ok to use this for CAD (ASA) -no bblocker given h/o sig conduction disease -cont Lipitor HTN-variable but overall improving -cont Losartan and monitor creatinine -cont norvasc HLD -cont Lipitor Carotid stenosis-with reported stent 2 years ago -cont asa and statin
[2017-03-19] MEDS: predniSONE 10 MG TABLET (UD) PO SCH (10:14)
[2017-03-19] MEDS: levETIRAcetam 250 MG TABLET (FP) PO SCH (10:14)
[2017-03-19] MEDS: LACTOBACILLUS ACIDOPHILUS 1 EACH TAB (FP) PO SCH (10:14)
[2017-03-19] MEDS: amLODIPine BESYLATE 5 MG TABLET (FP) PO SCH (10:14)
[2017-03-19] MEDS: ASPIRIN/DIPYRIDAMOLE 25 MG/200 MG CAPSULE (FP) PO SCH (10:14)
[2017-03-19] MEDS: CHOLESTYRAMINE/ASPARTAME 4 GM PACKET PO SCH (10:14)
[2017-03-19] MEDS: hydrALAZINE HCL 10 MG TABLET PO SCH (10:15)
[2017-03-19] MEDS: BACITRACIN 15 GM TUBE TOPICAL OINTMENT TP SCH (10:16)
[2017-03-19] MEDS ORDERED: predniSONE 10 MG TABLET (UD) PO SCH (10:49)
--- NOTE | 2017-03-19 10:49 | PN ---
Progress Note (short form) - Note Progress Note: PULMONARY VSS/AFEBRILE/OOB TO CHAIR LESS CONGESTED TODAY N/C O2 ANICTERIC SCATTERED RHONCHI BILATERALLY S1S2 BS+ SOFT DIMINISHED EDEMA LABS/MEDS/IMAGING/MICRO/ABG/REVIEWED CXR reviewed (1) COPD (chronic obstructive pulmonary disease) Code(s): J44.9 - CHRONIC OBSTRUCTIVE PULMONARY DISEASE, UNSPECIFIED (2) Elevated troponin Code(s): R74.8 - ABNORMAL LEVELS OF OTHER SERUM ENZYMES (3) Pneumonia Code(s): J18.9 - PNEUMONIA, UNSPECIFIED ORGANISM (4) Acute respiratory failure Code(s): J96.00 - ACUTE RESPIRATORY FAILURE, UNSP W HYPOXIA OR HYPERCAPNIA Aspiration precautions BD TX/CHEST PT/OOB TO CHAIR Medrol changed to prednisone to taper DNR/DNI Discharge planning Elizabeth PELLETIER MD
[2017-03-19] MEDS ORDERED: AZITHROMYCIN 250 MG TABLET (FP) PO ONE (11:14)
[2017-03-19] MEDS ORDERED: CEFUROXIME AXETIL 500 MG TABLET PO ONE (11:14)
[2017-03-19] MEDS: NYSTATIN POWDER 100,000 UNITS/GM - 15 GM TOPICAL POWDER TP SCH (11:45)
[2017-03-19] MEDS: ZINC OXIDE 20% TOPICAL OINTMENT 30 GM TUBE TP SCH (11:45)
--- NOTE | 2017-03-19 13:36 | PN ---
Physical Exam: SUBJECTIVE: Patient seen and examined at bedside. No overnight events. No new complaints. Breathing continues to be labored. Denies CP,NAVARRETE,palpitations, Abd. pain, N/V. OBJECTIVE: Vital Signs Period Temp Pulse Resp BP Sys/Bush Pulse Ox Last 24 Hr 97.8 F-98.4 F 64-68 20-20 144-162/60-70 93-96 GENERAL: awake and alert, NAD HEAD: AT/NC EYES: PERRL, EOMI, sclera anicteric, conjunctiva clear. No ptosis. NECK:Supple, no jvd LUNGS:scattered rhonci, expiratory wheezing. HEART: RRR, S1S2 ABDOMEN: Soft,obese NT, ND, BS(+) EXTREMITIES: 2+ pulses, warm, well-perfused,no edema. NEUROLOGICAL: Cranial nerves II through XII grossly intact. Normal speech, gait not observed Laboratory Results - last 24 hr 03/19/17 03/19/17 06:10 06:10 WBC 17.4 H RBC 3.30 L Hgb 9.8 L D Hct 30.2 L MCV 91.7 MCHC 32.4 RDW 15.7 Plt Count 129 L MPV 8.5 Neutrophils % 90.9 H Lymphocytes % 3.6 L D Monocytes % 5.2 D Eosinophils % 0.2 D Basophils % 0.1 D Sodium 141 Potassium 4.1 Chloride 108 H Carbon Dioxide 26 Anion Gap 7 L BUN 52 H Creatinine 1.0 Random Glucose 96 Calcium 8.6 Active Medications Generic Name Dose Route Start Last Admin Trade Name Freq PRN Reason Stop Dose Admin Albuterol/Ipratropium 1 amp 03/18/17 12:00 03/19/17 11:13 Duoneb - NEB 1 amp QIDR [facility] Administration Amlodipine Besylate 10 mg 03/16/17 10:00 03/19/17 10:14 Norvasc - PO 10 mg DAILY [facility] Administration Atorvastatin Calcium 10 mg 03/09/17 22:00 03/18/17 21:41 Lipitor - PO 10 mg HS [facility] Administration Bacitracin 1 applic 03/16/17 13:45 03/19/17 10:16 Bacitracin - TP 1 applic DAILY [facility] Administration Cholestyramine Resin 4 gm 03/12/17 10:00 03/19/17 10:14 Questran Light Packet - PO 4 gm BID [facility] Administration Dipyridamole/Aspirin 1 combo 03/08/17 10:00 03/19/17 10:14 Aggrenox - PO 1 combo BID [facility] Administration Heparin Sodium (Porcine) 5,000 unit 03/15/17 22:00 03/19/17 06:09 Heparin - SQ 5,000 unit TID [facility] Administration Hydralazine HCl 10 mg 03/15/17 22:00 03/19/17 10:15 Apresoline - PO 10 mg BID [facility] Administration Lactobacillus Acidophilus 1 tab 03/11/17 22:00 03/19/17 10:14 Bacid - PO 1 tab BID [facility] Administration Levetiracetam 750 mg 03/08/17 10:00 03/19/17 10:14 Keppra - PO 750 mg BID [facility] Administration Loperamide HCl 2 mg 03/16/17 13:36 03/16/17 17:15 Imodium - PO 2 mg Q8H PRN Administration DIARRHEA Montelukast Sodium 10 mg 03/08/17 22:00 03/18/17 21:41 Singulair - PO 10 mg HS [facility] Administration Multi-Ingredient Ointment 1 applic 03/15/17 22:00 03/19/17 11:45 Zinc Oxide TP 1 applic BID [facility] Administration Nystatin 1 applic 03/15/17 16:00 03/19/17 11:45 Nystop Powder - TP 1 applic DAILY [facility] Administration Prednisone 20 mg 03/19/17 10:49 Deltasone - PO DAILY [facility] Tamsulosin HCl 0.4 mg 03/08/17 08:30 03/19/17 09:14 Flomax - PO 0.4 mg DAILY@0830 [facility] Administration ASSESSMENT/PLAN: 89 year old male with significant PMHx of COPD, CHF, CAD, COPD, CVA, brought to the emergency room by EMS due to shortness of breath, found to be in acute respiratory failure and hypotensive. Admitted for sepsis secondary to pneumonia Problem List - Problems (1) YEISON (acute kidney injury) Assessment/Plan: * Improved. * Back to baseline. * Postassium stable. * hyperkalemia in past on Losartan so it is bieng held (2) Sepsis Assessment/Plan: * secondary to PNA * afebrile * Repeat Blood cultures (-) * completed antibiotic course. (3) COPD (chronic obstructive pulmonary disease) Assessment/Plan: * Continue supplemental O2 * Bipap PRN * taper steroids * Continue Singulair * Duoneb QID (4) CHF (congestive heart failure) Assessment/Plan: * Echo-no sig structural heart disease, normal LV function, no sig valvular abnl , no change from echo 2015 * Cardio consult appreciated * Losartan 50mg PO daily discontinued. * no evidence of fluid overload; no diuretics today. (5) CVA (cerebral vascular accident) Assessment/Plan: * Continue Aggrenox and Lipitor. * Keppra 750mg PO BID (6) CAD (coronary artery disease) Assessment/Plan: * Continue Lipitor and aggrenox * NO BB 2/2 h/o conduction disease. (7) HTN (hypertension) Assessment/Plan: * Continue Amlodipine 5mg PO daily * started on Hydralazine 10mg BID (8) DVT prophylaxis Assessment/Plan: * Heparin 5000 units BID SQ Visit type - Emergency Visit Emergency Visit: Yes ED Registration Date: 03/08/17 Care time: The patient presented to the Emergency Department on the above date and was hospitalized for further evaluation of their emergent condition. - New Patient This patient is new to me today: No - Critical Care Critical Care patient: No
--- NOTE | 2017-03-19 15:00 | PN ---
Progress Note, Physician History of Present Illness: still not feling well breathing still an issues less congested on nasal cannula - Current Medication List Current Medications: Active Medications Albuterol/Ipratropium (Duoneb -) 1 amp NEB QIDR [facility] Last Admin: 03/19/17 11:13 Dose: 1 amp Amlodipine Besylate (Norvasc -) 10 mg PO DAILY [facility] Last Admin: 03/19/17 10:14 Dose: 10 mg Atorvastatin Calcium (Lipitor -) 10 mg PO HS [facility] Last Admin: 03/18/17 21:41 Dose: 10 mg Bacitracin (Bacitracin -) 1 applic TP DAILY [facility] Last Admin: 03/19/17 10:16 Dose: 1 applic Cholestyramine Resin (Questran Light Packet -) 4 gm PO BID [facility] Last Admin: 03/19/17 10:14 Dose: 4 gm Dipyridamole/Aspirin (Aggrenox -) 1 combo PO BID [facility] Last Admin: 03/19/17 10:14 Dose: 1 combo Heparin Sodium (Porcine) (Heparin -) 5,000 unit SQ TID [facility] Last Admin: 03/19/17 06:09 Dose: 5,000 unit Hydralazine HCl (Apresoline -) 10 mg PO BID [facility] Last Admin: 03/19/17 10:15 Dose: 10 mg Lactobacillus Acidophilus (Bacid -) 1 tab PO BID [facility] Last Admin: 03/19/17 10:14 Dose: 1 tab Levetiracetam (Keppra -) 750 mg PO BID [facility] Last Admin: 03/19/17 10:14 Dose: 750 mg Loperamide HCl (Imodium -) 2 mg PO Q8H PRN PRN Reason: DIARRHEA Last Admin: 03/16/17 17:15 Dose: 2 mg Montelukast Sodium (Singulair -) 10 mg PO HS [facility] Last Admin: 03/18/17 21:41 Dose: 10 mg Multi-Ingredient Ointment (Zinc Oxide) 1 applic TP BID [facility] Last Admin: 03/19/17 11:45 Dose: 1 applic Nystatin (Nystop Powder -) 1 applic TP DAILY [facility] Last Admin: 03/19/17 11:45 Dose: 1 applic Prednisone (Deltasone -) 20 mg PO DAILY [facility] Tamsulosin HCl (Flomax -) 0.4 mg PO DAILY@0830 [facility] Last Admin: 03/19/17 09:14 Dose: 0.4 mg - Objective Vital Signs: Vital Signs Temperature 98.1 F 03/19/17 09:00 Pulse Rate 65 03/19/17 11:13 Respiratory Rate 22 03/19/17 09:00 Blood Pressure 124/48 03/19/17 09:00 O2 Sat by Pulse Oximetry (%) 95 03/19/17 11:13 Constitutional: Yes: Calm, Mild Distress, Obese Cardiovascular: Yes: S1, S2 Respiratory: Yes: On Nasal O2, Poor Air Entry, Rales, Rhonchi, Other (bipap use) Gastrointestinal: Yes: Normal Bowel Sounds, Soft Musculoskeletal: Yes: Other Extremities: Yes: Other Neurological: Yes: Alert Psychiatric: Yes: Alert Labs: CBC, BMP 03/19/17 06:10 03/19/17 06:10 INR, PTT INR 0.92 (0.82-1.09) 03/08/17 03:10 Assessment/Plan Problem List - Problems (1) COPD (chronic obstructive pulmonary disease) Code(s): J44.9 - CHRONIC OBSTRUCTIVE PULMONARY DISEASE, UNSPECIFIED (2) Elevated troponin Code(s): R74.8 - ABNORMAL LEVELS OF OTHER SERUM ENZYMES (3) Pneumonia Code(s): J18.9 - PNEUMONIA, UNSPECIFIED ORGANISM (4) Acute respiratory failure Code(s): J96.00 - ACUTE RESPIRATORY FAILURE, UNSP W HYPOXIA OR HYPERCAPNIA wbc has increased close watch on the same plan continue current mgmt patient worked with physio a little nutrition rest as per pulmonary
--- NOTE | 2017-03-19 15:40 | DS ---
Physical Exam: SUBJECTIVE: Patient seen and examined at bedside. Pt complains of mild cough productive of yellow sputum. No other complaints. Pt denies headache, cp, abdominal pain, nausea, vomiting, diarrhea. OBJECTIVE: Vital Signs Period Temp Pulse Resp BP Sys/Bush Pulse Ox Last 24 Hr 98.1 F-99.2 F 62-71 20-22 124-144/48-54 93-98 PHYSICAL EXAM GENERAL: The patient is awake, alert, and fully oriented, in no acute distress. HEAD: Normal with no signs of trauma. EYES: PERRL, extraocular movements intact, sclera anicteric, conjunctiva clear. ENT: Ears normal, nares patent, oropharynx clear without exudates, moist mucous membranes. NECK: Trachea midline, full range of motion, supple. LUNGS: bilateral wheezes and crackles, no accessory muscle use. HEART: Distant heart sounds. Regular rate and rhythm, S1, S2 without murmur, rub or gallop. ABDOMEN: Soft, nontender, nondistended, normoactive bowel sounds, no guarding, no rebound, no hepatosplenomegaly, no masses. EXTREMITIES: 2+ pulses, warm, well-perfused, no edema. NEUROLOGICAL: Cranial nerves II through XII grossly intact. Normal speech, gait not observed. PSYCH: Normal mood, normal affect. SKIN: Warm, dry, normal turgor, no rashes or lesions noted. LABS Laboratory Results - last 24 hr 03/19/17 03/19/17 06:10 06:10 WBC 17.4 H RBC 3.30 L Hgb 9.8 L D Hct 30.2 L MCV 91.7 MCHC 32.4 RDW 15.7 Plt Count 129 L MPV 8.5 Neutrophils % 90.9 H Lymphocytes % 3.6 L D Monocytes % 5.2 D Eosinophils % 0.2 D Basophils % 0.1 D Sodium 141 Potassium 4.1 Chloride 108 H Carbon Dioxide 26 Anion Gap 7 L BUN 52 H Creatinine 1.0 Random Glucose 96 Calcium 8.6 HOSPITAL COURSE: Date of Admission:03/08/17 Date of Discharge: 03/19/17 This is an 89 y/o man with significant past medical history of COPD, CHF, CAD, COPD, CVA who was brought to the ED by EMS on 03/08/17 because of worsening shortness of breath. He was admitted for COPD exacerbation with acute respiratory failure and sepsis possibly 2/2 aspiration pneumonia after vomiting. During his course, he was seen by Nephrology for YEISON (2/2 sepsis), which resolved, ID for PNA and Discharge Summary Reason For Visit: CHRONIC OBSTRUCTION PULMONARY DISEASE Current Active Problems YEISON (acute kidney injury) (Acute) Acute respiratory failure (Acute) CAD (coronary artery disease) (Acute) CHF (congestive heart failure) (Acute) COPD (chronic obstructive pulmonary disease) (Acute) CVA (cerebral vascular accident) (Acute) Carotid artery stenosis (Acute) DVT prophylaxis (Acute) Elevated troponin (Acute) Esophageal dysmotility (Acute) Fall (Acute) HTN (hypertension) (Acute) Head injury (Acute) Pneumonia (Acute) Regurgitation (Acute) Sepsis (Acute) Sleep apnea (Acute) Condition: Critical - Instructions Referrals: Karli Walsh MD [Primary Care Provider] - - Home Medications Comprehensive Discharge Medication List: Ambulatory Orders Albuterol 0.083% Nebulizer Lela [Ventolin 0.083% Nebulizer Soln -] 1 neb NEB BID 09/30/14 Amlodipine Besylate [Norvasc -] 5 mg PO DAILY 09/30/14 Aspirin/Dipyridamole [Aggrenox -] 1 combo PO BID 09/30/14 Cholecalciferol (Vitamin D3) [Vitamin D3] 1,000 unit PO DAILY 09/30/14 Cholestyramine/Sucrose [Cholestyramine Packet] 4 gm PO BID PRN 09/30/14 Fluticasone Propionate [Flovent Hfa] 110 mg IH BID 09/30/14 Levetiracetam [Keppra -] 750 mg PO BID 09/30/14 Lipase/Protease/Amylase [Pancrease EC Capsule] 4 each PO DAILY 09/30/14 Loratadine 10 mg PO DAILY 09/30/14 Losartan Potassium 50 mg PO DAILY 09/30/14 Montelukast Na [Singulair -] 10 mg PO HS 09/30/14 Simvastatin [Zocor] 20 mg PO HS 09/30/14 Solifenacin Succinate [Vesicare] 10 mg PO DAILY 09/30/14 Tamsulosin HCl [Flomax -] 0.4 mg PO DAILY 09/30/14 Tiotropium [place] [Spiriva] 1 inh PO DAILY 09/30/14 Lipase/Protease/Amylase [Pancrelipase 5,000 Dr Capsule -] 2 each PO BIDWM #60 cap 10/06/14 Oxymetazoline 0.05% Nasal Soln [Afrin -] 2 spray NS BID PRN #7 spraybtl Ranitidine [Zantac -] 150 mg PO BID #30 tablet 10/06/14 Sulfamethoxazole/Trimethoprim [Bactrim DS -] 1 tab PO BID #14 tablet 01/08/17 Tramadol HCl 50 mg PO Q6H #20 tablet MDD 200mg 01/08/17 - Discharge Referral [facility]erred to [facility] No
[2017-03-19 15:49] VITALS: BP 112/52; PULSE 72; TEMP 98.4
--- NOTE | 2017-03-19 16:15 | DS ---
Physical Exam: SUBJECTIVE: Patient seen and examined at bedside. He complains of mild cough productive of yellow sputum. No other complaints. Pt denies headache, chest pain , abdominal pain, nausea, vomiting, diarrhea. OBJECTIVE: Vital Signs Period Temp Pulse Resp BP Sys/Bush Pulse Ox Last 24 Hr 98.1 F-99.2 F 62-72 18-22 112-144/48-53 93-98 PHYSICAL EXAM GENERAL: The patient is awake, alert, and fully oriented, in no acute distress. HEAD: Normal with no signs of trauma. EYES: PERRL, extraocular movements intact, sclera anicteric, conjunctiva clear. ENT: Ears normal, nares patent, oropharynx clear without exudates, moist mucous membranes. NECK: Trachea midline, full range of motion, supple. LUNGS: diffuse inspiratory/expiratory wheezes, no crackles, no accessory muscle use. HEART: distant heart sounds. Regular rate and rhythm, S1, S2 without murmur, rub or gallop. ABDOMEN: Soft, nontender, nondistended, normoactive bowel sounds, no guarding, no rebound, no hepatosplenomegaly, no masses. EXTREMITIES: 2+ pulses, warm, well-perfused, no edema. NEUROLOGICAL: Cranial nerves II through XII grossly intact. Normal speech, gait not observed. PSYCH: Normal mood, normal affect. SKIN: Warm, dry, normal turgor, no rashes or lesions noted. LABS Laboratory Results - last 24 hr 03/19/17 03/19/17 06:10 06:10 WBC 17.4 H RBC 3.30 L Hgb 9.8 L D Hct 30.2 L MCV 91.7 MCHC 32.4 RDW 15.7 Plt Count 129 L MPV 8.5 Neutrophils % 90.9 H Lymphocytes % 3.6 L D Monocytes % 5.2 D Eosinophils % 0.2 D Basophils % 0.1 D Sodium 141 Potassium 4.1 Chloride 108 H Carbon Dioxide 26 Anion Gap 7 L BUN 52 H Creatinine 1.0 Random Glucose 96 Calcium 8.6 HOSPITAL COURSE: Date of Admission:03/08/17 Date of Discharge: 03/19/17 This is an 89 yo man with significant PMHx of COPD, CHF, CAD, COPD, CVA, who was brought to the emergency room by EMS, due to worsening shortness of breath. He was admitted with acute respiratory failure and sepsis likely secondary to aspiration pneumonia. Throughout his stay, he was seen by Nephrology for YEISON, which resolved, by ID for his Pneumonia, Cardiology, and by Pulmonology for management of his COPD and pneumonia. The patient received several chest x-rays , modified barium swallow, renal and bladder ultrasounds, and an abdominal CT. Imaging studies revealed a hiatal hernia which will be addressed later on an outpatient basis. He has been on Bipap which has been optimized during his hospital stay. He now uses it when sleeping. He will be going home with Azithromycin and Cefin for his cough and yellow sputum. He will receive a steroid taper and will resume his home medications. [facility]. Minutes to complete discharge: 45 Discharge Summary Reason For Visit: CHRONIC OBSTRUCTION PULMONARY DISEASE Current Active Problems YEISON (acute kidney injury) (Acute) Acute respiratory failure (Acute) Elevated troponin (Acute) Pneumonia (Acute) Sepsis (Acute) CAD (coronary artery disease) (Chronic) CHF (congestive heart failure) (Chronic) COPD (chronic obstructive pulmonary disease) (Chronic) CVA (cerebral vascular accident) (Chronic) Carotid artery stenosis (Chronic) Esophageal dysmotility (Chronic) HTN (hypertension) (Chronic) Regurgitation (Chronic) Sleep apnea (Chronic) Condition: Improved - Instructions Diet, Activity, Other Instructions: You were admitted to the hospital for a lung infection (aspiration pneumonia). You need to: -Take the following medication -Ceftin for 1 week -Azithromycin for 5 days -Take prednisone in tapering doses -all other medications as directed -Follow up -Dr. Catalan (ammonium hydroxide operator) in 1 week -Dr. Walsh in (PCP) 1 week If your symptoms return back please come back to the hospital. BIPAP FOR THE NIGHT O2 4-5 l via NC during the day may take shower Activity as tolerated Aspiration precautions Referrals: Manpreet Acevedo MD [Staff Physician] - Juan Pablo Catalan MD [Staff Physician] - 1 Week Karli Walsh MD [Primary Care Provider] - 1 Week Disposition: HALF-WAY FACILITY - Home Medications Comprehensive Discharge Medication List: Ambulatory Orders Albuterol 0.083% Nebulizer Lela [Ventolin 0.083% Nebulizer Soln -] 1 neb NEB BID 09/30/14 Aspirin/Dipyridamole [Aggrenox -] 1 combo PO BID 09/30/14 Cholecalciferol (Vitamin D3) [Vitamin D3] 1,000 unit PO DAILY 09/30/14 Cholestyramine/Sucrose [Cholestyramine Packet] 4 gm PO BID PRN 09/30/14 Fluticasone Propionate [Flovent Hfa] 110 mg IH BID 09/30/14 Levetiracetam [Keppra -] 750 mg PO BID 09/30/14 Lipase/Protease/Amylase [Pancrease EC Capsule] 4 each PO DAILY 09/30/14 Loratadine 10 mg PO DAILY 09/30/14 Montelukast Na [Singulair -] 10 mg PO HS 09/30/14 Simvastatin [Zocor] 20 mg PO HS 09/30/14 Solifenacin Succinate [Vesicare] 10 mg PO DAILY 09/30/14 Tamsulosin HCl [Flomax -] 0.4 mg PO DAILY 09/30/14 Tiotropium [place] [Spiriva] 1 inh PO DAILY 09/30/14 Lipase/Protease/Amylase [Pancrelipase 5,000 Dr Capsule -] 2 each PO BIDWM #60 cap 10/06/14 Oxymetazoline 0.05% Nasal Soln [Afrin -] 2 spray NS BID PRN #7 spraybtl Ranitidine [Zantac -] 150 mg PO BID #30 tablet 10/06/14 Tramadol HCl 50 mg PO Q6H #20 tablet MDD 200mg 01/08/17 Amlodipine Besylate [Norvasc -] 10 mg PO DAILY #30 tablet 03/19/17 Azithromycin 500 mg PO DAILY #5 tablet 03/19/17 Cefuroxime Axetil [Ceftin -] 500 mg PO BID #14 tablet 03/19/17 Hydralazine HCl 10 mg PO BID #60 tablet 03/19/17 Prednisone [Deltasone -] See Taper PO DAILY #30 tablet 03/19/17 This patient is new to me today: No Emergency Visit: No Critical Care patient: No - Discharge Referral [facility]erred to [facility] No
--- NOTE | 2017-03-19 17:39 | PN ---
Teaching Attending Note Name of Resident: Ramiro Harley (Nephrology) ATTENDING PHYSICIAN STATEMENT I saw and evaluated the patient. I reviewed the resident's note and discussed the case with the resident. I agree with the resident's findings and plan as documented. Current Medications Generic Name Dose Route Start Last Admin Trade Name Freq PRN Reason Stop Dose Admin Albuterol/Ipratropium 1 amp 03/18/17 12:00 03/19/17 15:05 Duoneb - NEB Not Given QIDR CAREY Amlodipine Besylate 10 mg 03/16/17 10:00 03/19/17 10:14 Norvasc - PO 10 mg DAILY CAREY Administration Atorvastatin Calcium 10 mg 03/09/17 22:00 03/18/17 21:41 Lipitor - PO 10 mg HS CAREY Administration Bacitracin 1 applic 03/16/17 13:45 03/19/17 10:16 Bacitracin - TP 1 applic DAILY CAREY Administration Cholestyramine Resin 4 gm 03/12/17 10:00 03/19/17 10:14 Questran Light Packet - PO 4 gm BID CAREY Administration Dipyridamole/Aspirin 1 combo 03/08/17 10:00 03/19/17 10:14 Aggrenox - PO 1 combo BID CAREY Administration Heparin Sodium (Porcine) 5,000 unit 03/15/17 22:00 03/19/17 15:04 Heparin - SQ 5,000 unit TID CAREY Administration Hydralazine HCl 10 mg 03/15/17 22:00 03/19/17 10:15 Apresoline - PO 10 mg BID CAREY Administration Lactobacillus Acidophilus 1 tab 03/11/17 22:00 03/19/17 10:14 Bacid - PO 1 tab BID CAREY Administration Levetiracetam 750 mg 03/08/17 10:00 03/19/17 10:14 Keppra - PO 750 mg BID CAREY Administration Loperamide HCl 2 mg 03/16/17 13:36 03/16/17 17:15 Imodium - PO 2 mg Q8H PRN Administration DIARRHEA Montelukast Sodium 10 mg 03/08/17 22:00 03/18/17 21:41 Singulair - PO 10 mg HS CAREY Administration Multi-Ingredient Ointment 1 applic 03/15/17 22:00 03/19/17 11:45 Zinc Oxide TP 1 applic BID CAREY Administration Nystatin 1 applic 03/15/17 16:00 03/19/17 11:45 Nystop Powder - TP 1 applic DAILY CAREY Administration Prednisone 20 mg 03/19/17 10:49 Deltasone - PO DAILY CAREY Tamsulosin HCl 0.4 mg 03/08/17 08:30 03/19/17 09:14 Flomax - PO 0.4 mg DAILY@0830 CAREY Administration cardio s1s2 pulm wheeze gi soft ext neg edema Impression 1. YEISON 2. Sepsis 3. hx CHF 4. COPD 5. CAD 6. hx CVA 7. anemia 8. hyperkalemia Plan - renal function is stable - creatinine is stable - bun likely elevated secondary to steroid use - cxr reviewed - will hold off lasix today Problem List - Problems (1) YEISON (acute kidney injury) Code(s): N17.9 - ACUTE KIDNEY FAILURE, UNSPECIFIED (2) COPD (chronic obstructive pulmonary disease) Code(s): J44.9 - CHRONIC OBSTRUCTIVE PULMONARY DISEASE, UNSPECIFIED Qualifiers : COPD type: COPD with acute lower respiratory infection Qualified Code(s): J44.0 - Chronic obstructive pulmonary disease with acute lower respiratory infection (3) Sepsis Code(s): A41.9 - SEPSIS, UNSPECIFIED ORGANISM
--- NOTE | 2017-03-19 20:16 | PN ---
Teaching Attending Note Name of Resident: Nathaniel Canas ATTENDING PHYSICIAN STATEMENT I saw and evaluated the patient. I reviewed the resident's note and discussed the case with the resident. I agree with the resident's findings and plan as documented. SUBJECTIVE: Patient is comfortable with no acute distress. OBJECTIVE: Vital Signs Temperature 98.4 F 03/19/17 15:46 Pulse Rate 72 03/19/17 15:46 Respiratory Rate 18 03/19/17 15:46 Blood Pressure 112/52 03/19/17 15:46 O2 Sat by Pulse Oximetry (%) 95 03/19/17 11:13 PE: per resident's note CBCD WBC 17.4 K/mm3 (4.0-10.0) H 03/19/17 06:10 RBC 3.30 M/mm3 (4.00-5.60) L 03/19/17 06:10 Hgb 9.8 GM/dL (11.7-16.9) L D 03/19/17 06:10 Hct 30.2 % (35.4-49) L 03/19/17 06:10 MCV 91.7 fl (80-96) 03/19/17 06:10 MCHC 32.4 g/dl (32.0-35.9) 03/19/17 06:10 RDW 15.7 % (11.9-15.9) 03/19/17 06:10 Plt Count 129 K/MM3 (134-434) L 03/19/17 06:10 MPV 8.5 fl (7.5-11.1) 03/19/17 06:10 CMP Sodium 141 mmol/L (136-145) 03/19/17 06:10 Potassium 4.1 mmol/L (3.5-5.1) 03/19/17 06:10 Chloride 108 mmol/L (98-107) H 03/19/17 06:10 Carbon Dioxide 26 mmol/L (21-32) 03/19/17 06:10 Anion Gap 7 (8-16) L 03/19/17 06:10 BUN 52 mg/dL (7-18) H 03/19/17 06:10 Creatinine 1.0 mg/dL (0.7-1.3) 03/19/17 06:10 Creat Clearance w eGFR 57.01 (>60) 03/15/17 08:20 Random Glucose 96 mg/dL (74-106) 03/19/17 06:10 Calcium 8.6 mg/dL (8.5-10.1) 03/19/17 06:10 Total Bilirubin 0.5 mg/dL (0.2-1.0) 03/15/17 08:20 AST 21 U/L (15-37) D 03/15/17 08:20 ALT 27 U/L (12-78) D 03/15/17 08:20 Alkaline Phosphatase 49 U/L (45-117) 03/15/17 08:20 Total Protein 5.9 g/dl (6.4-8.2) L 03/15/17 08:20 Albumin 2.9 g/dl (3.4-5.0) L 03/15/17 08:20 CARDIAC ENZYMES Creatine Kinase 160 IU/L (39-308) D 03/08/17 03:10 Troponin I 0.95 ng/ml (0.00-0.05) H* D 03/08/17 11:39 Home Medications Medication Instructions Recorded Albuterol 0.083% Nebulizer Lela 1 neb NEB BID 09/30/14 [Ventolin 0.083% Nebulizer Soln -] Aspirin/Dipyridamole [Aggrenox -] 1 combo PO BID 09/30/14 Cholecalciferol (Vitamin D3) 1,000 unit PO DAILY 09/30/14 [Vitamin D3] Cholestyramine/Sucrose 4 gm PO BID PRN 09/30/14 [Cholestyramine Packet] Fluticasone Propionate [Flovent 110 mg IH BID 09/30/14 Hfa] Levetiracetam [Keppra -] 750 mg PO BID 09/30/14 Lipase/Protease/Amylase [Pancrease 4 each PO DAILY 09/30/14 EC Capsule] Loratadine 10 mg PO DAILY 09/30/14 Montelukast Na [Singulair -] 10 mg PO HS 09/30/14 Simvastatin [Zocor] 20 mg PO HS 09/30/14 Solifenacin Succinate [Vesicare] 10 mg PO DAILY 09/30/14 Tamsulosin HCl [Flomax -] 0.4 mg PO DAILY 09/30/14 Tiotropium [place] [Spiriva] 1 inh PO DAILY 09/30/14 Lipase/Protease/Amylase 2 each PO BIDWM #60 cap 10/06/14 [Pancrelipase 5,000 Dr Capsule -] Oxymetazoline 0.05% Nasal Soln 2 spray NS BID PRN #7 spraybtl 10/06/14 [Afrin -] Ranitidine [Zantac -] 150 mg PO BID #30 tablet 10/06/14 Tramadol HCl 50 mg PO Q6H #20 tablet MDD 200mg 01/08/17 Amlodipine Besylate [Norvasc -] 10 mg PO DAILY #30 tablet 03/19/17 Azithromycin 500 mg PO DAILY #5 tablet 03/19/17 Cefuroxime Axetil [Ceftin -] 500 mg PO BID #14 tablet 03/19/17 Hydralazine HCl 10 mg PO BID #60 tablet 03/19/17 Prednisone [Deltasone -] See Taper PO DAILY #30 tablet 03/19/17 ASSESSMENT AND PLAN: 89 y/o gentleman with h/o COPD, CHF,HTN, CAD, COPD, CVA who presented with worsening SOB and was found to have acute resp failure due to acute COPD exacerbation and possible aspiration PNA # s/p Acute resp failure due to COPD exacerbation and possible aspiration PNA continue ceftin and Zithromax # YEISON: improved ;stable cr. # s/p hyperkalemia resolved #HTN : improved . continue norvasc to 10. # Dysuria no UTI # Diarrhea : no infection # H/o CAD: cont aggrenox , Not on BB due to conduction abn # Dysphagia : with esophageogram showing dysmotility, high risk for EGD at this time. Discharged to rehab .
== END 2017-03-19 18:10 | DRG 871 ==
LOC: JER 02:50 → JERBED 05:16 → J4W 21:54 → J8W 03-10 20:20
PROVIDERS: ADMIT Internal Medicine; ATTEND Internal Medicine
PROC: 5A09557 Assistance with Respiratory Ventilation, Greater than 96 Consecutive Hours, Continuous Positive Airway Pressure (ICD-10-PCS; principal; 2017-03-09)
DX: A41.9 Sepsis, unspecified organism (principal); J96.01 Acute respiratory failure with hypoxia; J69.0 Pneumonitis due to inhalation of food and vomit; N17.9 Acute kidney failure, unspecified; J44.1 Chronic obstructive pulmonary disease with (acute) exacerbation; E87.5 Hyperkalemia; R19.7 Diarrhea, unspecified; R13.10 Dysphagia, unspecified; D64.9 Anemia, unspecified; Z86.73 Personal history of transient ischemic attack (TIA), and cerebral infarction without residual deficits; G47.30 Sleep apnea, unspecified; I11.0 Hypertensive heart disease with heart failure; I50.9 Heart failure, unspecified; I25.10 Atherosclerotic heart disease of native coronary artery without angina pectoris; Z98.61 Coronary angioplasty status; R65.20 Severe sepsis without septic shock; Z87.891 Personal history of nicotine dependence; D69.6 Thrombocytopenia, unspecified
CPT/HCPCS: 36415; 36600; 71010-TC; 74150-TC; 74220-TC; 74230-TC; 76775-TC; 76856-TC; 80048; 80051; 80053; 80061; 81003; 81015; 82375; 82550; 82553; 82570; 82803; 83050; 83605; 83721; 83735; 83880; 84132; 84300; 84443; 84484; 85025; 85027; 85610; 85730; 86850; 86900; 86901; 87040; 87045; 87046; 87077; 87086; 87186; 87324; 87449; 92611-GN; 93005; 93010; 93306-TC; 94640; 94660; 97116-GP; 97162-GP; 99285-25; J1644

== ENCOUNTER 2017-03-20 16:58 | Inpatient (IN) | payer OTHER, BC ==
--- NOTE | 2017-03-20 17:04 | PDOC ---
History of Present Illness - General History Source: Spouse Exam Limitations: Clinical Condition - History of Present Illness Initial Comments: The patient is a 89 yo M with a past medical history significant for CHF, CAD, COPD, CVA,and hernia who was discharged from [facility] 24 hours ago to SNF with Azithromycin and Cefin for his cough and yellow sputum who presents with SOB and wheezing. As per patients , patient has also developed diarrhea recently and has been extremely lethargic. As per patients , patient had a PT and OT evaluation today and was able to eat lunch. As per , patient is typically AAOx3 at baseline. Patient denies chest pain but endorses mild abdominal pain and mild nausea. Dr. Farley saw him earlier this afternoon and requested that he return to [facility]. Patient is DNR/DNI. PCP: Dr. Acevedo <Halley Harrington - Last Filed: 03/20/17 20:19> - General History Source: Patient Exam Limitations: No Limitations <Jolie Zapata - Last Filed: 03/20/17 20:35> - General Stated Complaint: SHORTNESS OF BREATH Time Seen by Provider: 03/20/17 17:03 Past History <Halley Harrington - Last Filed: 03/20/17 20:19> - Past Medical History Anemia: No Cancer: Yes (PROSTATE) CVA: Yes (TIA) COPD: Yes Disorders: Yes HTN: Yes Suicide Attempt (Hx): No - Surgical History Cardiac Surgery: Yes (Stents) - Immunization History Immunization Up to Date: Yes - Psycho/Social/Smoking Cessation Hx Anxiety: No Suicidal Ideation: No Smoking Status: No Smoking History: Former smoker Have you smoked in the past 12 months: No Number of Cigarettes Smoked Daily: 0 If you are a former smoker, when did you quit?: over 20 years go Hx Alcohol Use: No Drug/Substance Use Hx: No Substance Use Type: None Hx Substance Use Treatment: No <Jolie Zapata - Last Filed: 03/20/17 20:35> - Past Medical History Allergies/Adverse Reactions: Allergies Allergy/AdvReac Type Severity Reaction Status Date / Time Anesthetics - Angle Type- Allergy Unknown Verified 03/20/17 17:27 Parabens [Anesthetics - Angle Type] latex Allergy Verified 03/20/17 17:27 Home Medications: Ambulatory Orders Albuterol 0.083% Nebulizer Lela [Ventolin 0.083% Nebulizer Soln -] 1 neb NEB BID 09/30/14 Aspirin/Dipyridamole [Aggrenox -] 1 combo PO BID 09/30/14 Cholecalciferol (Vitamin D3) [Vitamin D3] 1,000 unit PO DAILY 09/30/14 Cholestyramine/Sucrose [Cholestyramine Packet] 4 gm PO BID PRN 09/30/14 Fluticasone Propionate [Flovent Hfa] 110 mg IH BID 09/30/14 Levetiracetam [Keppra -] 750 mg PO BID 09/30/14 Lipase/Protease/Amylase [Pancrease EC Capsule] 4 each PO DAILY 09/30/14 Loratadine 10 mg PO DAILY 09/30/14 Montelukast Na [Singulair -] 10 mg PO HS 09/30/14 Simvastatin [Zocor] 20 mg PO HS 09/30/14 Solifenacin Succinate [Vesicare] 10 mg PO DAILY 09/30/14 Tamsulosin HCl [Flomax -] 0.4 mg PO DAILY 09/30/14 Tiotropium [place] [Spiriva] 1 inh PO DAILY 09/30/14 Lipase/Protease/Amylase [Pancrelipase 5,000 Dr Capsule -] 2 each PO BIDWM #60 cap 10/06/14 Oxymetazoline 0.05% Nasal Soln [Afrin -] 2 spray NS BID PRN #7 spraybtl Ranitidine [Zantac -] 150 mg PO BID #30 tablet 10/06/14 Tramadol HCl 50 mg PO Q6H #20 tablet MDD 200mg 01/08/17 Amlodipine Besylate [Norvasc -] 10 mg PO DAILY #30 tablet 03/19/17 Azithromycin 500 mg PO DAILY #5 tablet 03/19/17 Cefuroxime Axetil [Ceftin -] 500 mg PO BID #14 tablet 03/19/17 Hydralazine HCl 10 mg PO BID #60 tablet 03/19/17 Prednisone [Deltasone -] See Taper PO DAILY #30 tablet 03/19/17 Menthol/Zinc Oxide [Calmoseptine Ointment] 71 gm TP QID 03/20/17 Nystatin Powder [Nystop Topical Powder -] 15 gm TP BID 03/20/17 Review of Systems - Review of Systems Able to Perform ROS?: Yes Comments:: GENERAL/CONSTITUTIONAL: (+) lethargy No: fever, chills, loss of appetite. HEAD, EYES, EARS, NOSE AND THROAT: No: change in vision, ear pain, discharge, sore throat, throat swelling. CARDIOVASCULAR: No: chest pain, lightheadedness, palpitations, syncope RESPIRATORY: (+) cough, SOB, wheezing No: hemoptysis, stridor. GASTROINTESTINAL: (+) diarrhea, mild abdominal pain, nausea. No: vomiting, rectal bleeding, constipation. GENITOURINARY: No: dysuria, hematuria, frequency, urgency, flank pain. MUSCULOSKELETAL: No: back pain, neck pain, joint pain, muscle swelling or pain SKIN AND BREASTS: No: lesions, pallor, rash or easy bruising. NEUROLOGIC: No: headache, vertigo, paresthesias, weakness <Halley Harrington - Last Filed: 03/20/17 20:19> *Physical Exam - Physical Exam Comments: GENERAL: Awake and responding to questions. HEAD: Normal with no signs of trauma. EYES: PERRLA, EOMI, sclera anicteric, conjunctiva clear. ENT: Ears normal, nares patent, oropharynx clear without exudates. Dry mucous membranes. NECK: Normal range of motion, supple without lymphadenopathy, JVD, or masses. LUNGS: SOB, diffuse rhonchorous coarse breath sounds bilaterally. HEART: Tachycardia. Unable to appreciate a murmur. Normal S1 and S2 without rub or gallop. ABDOMEN: Soft, nontender, normoactive bowel sounds. No guarding, no rebound. EXTREMITIES: Normal range of motion, no edema. No clubbing or cyanosis. No erythema, or tenderness. NEUROLOGICAL: No gross focal neurological deficits. MUSCULOSKELETAL: Back non-tender to palpation, no CVA tenderness SKIN: Warm, Dry, normal turgor, no rashes or lesions noted. <Halley Harrington - Last Filed: 03/20/17 20:19> Heart Score/ECG Review - ECG Intrepretation Comment:: ECG: Sinus rhythm @ 75 bpm with first degree AV block. R bundle branch block. <Halley Harrington - Last Filed: 03/20/17 20:19> #1 ECG reviewed & interpreted by me at: 18:20 03/20/17 18:20 Twelve-lead EKG was performed and reviewed by me. There is normal sinus rhythm with a normal rate of 75 bpm. The axis is normal. The intervals are normal - pr: 216ms (prolonged), QRS:136ms (prolonged), QTc: 460ms. RBBB. There are no ST elevations or depressions. T wave nml 03/20/17 18:22 <Jolie Zapata - Last Filed: 03/20/17 20:35> ED Treatment Course - LABORATORY CBC & Chemistry Diagram: 03/20/17 17:05 03/20/17 17:05 <Halley Harrington - Last Filed: 03/20/17 20:19> - LABORATORY CBC & Chemistry Diagram: 03/20/17 17:05 03/20/17 17:05 <Jolie Zapata - Last Filed: 03/20/17 20:35> Medical Decision Making - Medical Decision Making Dr. Acevedo was paged @20:08. Awaiting call back. Received call back @ 20:19. Case was discussed. <OdinHalley auguste - Last Filed: 03/20/17 20:19> - Medical Decision Making 03/20/17 17:04 A portion of this note was documented by scribe services under my direction. I have reviewed the details of the note, within reason, and agree with the documentation with the following case summary and management plan written by me. Nursing documentation reviewed and incorporated into medical decision making 03/20/17 18:14 This is an 89 yo M h/o COPD, CHF, CAD, COPD, CVA, who was brought to the emergency room by EMS, due to worsening shortness of breath Pt was discharged yesterday after admission for pneumonia Pt was well this morning this afternoon he reported that he was fatigued He was seen by Dr Farley this afternoon who requested that patient be transferred back to the ER Laboratory Tests 03/19/17 03/20/17 06:10 17:05 WBC 17.4 H 18.8 H Hgb 9.8 L D 9.8 L Hct 30.2 L 29.9 L Plt Count 129 L 186 D 03/20/17 18:16 03/20/17 18:17 03/20/17 18:27 Laboratory Tests 03/19/17 03/20/17 06:10 17:05 Sodium 141 140 Potassium 4.1 5.2 H D Chloride 108 H 107 Carbon Dioxide 26 26 BUN 52 H 59 H Creatinine 1.0 1.1 Random Glucose 174 H D Creatine Kinase 62 Troponin I 0.05 D 03/20/17 20:29 CXR: widened mediastinum CT chest: Ascending Aortic aneurysm 4.4, pneumonic infiltrated L> R Pt seen in the ER by Dr farley he requests that pt be given Ertapenam 03/20/17 20:[address] Acevedo Covered by Dr Chi Admit to [facility] Clinical Impression: respiratory distress, leukocytosis, pneumonia <Jolie Zapata - Last Filed: 03/20/17 20:35> *DC/Admit/Observation/Transfer - Attestations Scribe Attestion: Documentation prepared by Halley Harrington, acting as medical concierge for Jolie Zapata MD/DO. <Halley Harrington - Last Filed: 03/20/17 20:19> - Discharge Dispostion Admit: Yes <Jolie Zapata - Last Filed: 03/20/17 20:35> Diagnosis at time of Disposition: Respiratory distress Pneumonia Qualifiers: Pneumonia type: due to unspecified organism Laterality: bilateral Lung location : lower lobe of lung Qualified Code(s): J18.9 - Pneumonia, unspecified organism - Discharge Dispostion Condition at time of disposition: Stable - Referrals Referrals: Manpreet Acevedo MD [Primary Care Provider] -
[2017-03-20] MEDS ORDERED: ALBUTEROL SO4 2.5/IPRATROPIUM 0.5 INH SOL 3 ML VIAL.NEB. NEB ONE ×2 (17:13→17:44)
[2017-03-20] MEDS ORDERED: SODIUM CHLORIDE 500 ML IV STA (17:17)
[2017-03-20 18:02] LABS: BASOPHIL 0.2 % (0-2.0); EOSINOPHIL 0.1 % (0-4.5); MCH 29.8 pg (25.7-33.7); MCHC 32.8 g/dl (32.0-35.9); MEAN CELL VOLUME 91.1 fl (80-96); MEAN PLT VOLUME 8.7 fl (7.5-11.1); PLATELET COUNT 186 K/MM3 (134-434); WHITE BLOOD COUNT 18.8 K/mm3 (4.0-10.0)
[2017-03-20 18:20] LABS: ALBUMIN 2.7 g/dl (3.4-5.0); ANION GAP 7 (8-16); BILIRUBIN,TOTAL 0.6 mg/dL (0.2-1.0); CALCIUM 8.5 mg/dL (8.5-10.1); CO2 26 mmol/L (21-32); CREATININE 1.1 mg/dL (0.7-1.3); GLUCOSE,RANDOM 174 mg/dL (74-106); SGOT/AST 15 U/L (15-37); SGPT/ALT 26 U/L (12-78); TOT PROT 5.8 g/dl (6.4-8.2)
[2017-03-20] MEDS ORDERED: ERTAPENEM SODIUM 1 GM in SODIUM CHLORIDE 50 ML IVPB ONE (18:21)
[2017-03-20 18:22] LABS: ALK PHOS 53 U/L (45-117); TROPONIN I 0.05 ng/ml (0.00-0.05)
[2017-03-20 18:24] LABS: INR 1.06 (0.82-1.09); PROTHROMBIN TIME (PATIENT) 11.7 SEC (9.98-11.88)
[2017-03-20 18:51] LABS: ARTERIAL BLD GAS O2 SATURATION 92.6 % (90-98.9); ARTERIAL BLOOD GAS BASE EXCESS -1.1 meq/l (-2-2); ARTERIAL BLOOD GAS HCO3 22.5 meq/L (22-26); ARTERIAL BLOOD GAS PO2 65.6 mmHg (68-100); ARTERIAL BLOOD GAS pH 7.43 (7.35-7.45)
[2017-03-20 18:52] LABS: ALLENS TEST POSITIVE; ART PUNCT SITE RIGHT RADIAL; LPM/O2% 3L; PT. ON O2? YES; TYPE OF O2 NASAL
[2017-03-20 18:58] LABS: URINE APPEARANCE CLEAR; URINE BILIRUBIN NEGATIVE (NEGATIVE); URINE COLOR LT. YELLOW; URINE GLUCOSE (UA) NEGATIVE (NEGATIVE); URINE KETONE NEGATIVE (NEGATIVE); URINE NITRITE NEGATIVE (NEGATIVE); URINE PROTEIN NEGATIVE (NEGATIVE); URINE UROBILINOGEN 0.2 E.U/dl E.U./dl (0.2-1.0)
[2017-03-20 19:03] LABS: URINE BLOOD 1+ (NEGATIVE); URINE LEUK ESTERASE TRACE (NEGATIVE)
[2017-03-20 19:05] LABS: PH,URINE 6.5 (5.0-8.0)
[2017-03-20 22:45] LABS: URINE MUCUS RARE; URINE RBC 5 /hpf (0-3); URINE WBC 9 /hpf (3-5); YEAST FEW
[2017-03-20] MEDS ORDERED: OXYMETAZOLINE 0.05% NASAL SOLUTION 15 ML BOTTLE NS PRN (23:00)
[2017-03-20] MEDS ORDERED: CHOLESTYRAMINE/SUCROSE 4 GM PACKET PO SCH (23:11)
[2017-03-20] MEDS ORDERED: ALBUTEROL SO4 0.083% IH SOL 2.5 MG/3 ML VIAL.NEB. NEB SCH (23:30)
[2017-03-21] MEDS ORDERED: ALBUTEROL SO4 0.083% IH SOL 2.5 MG/3 ML VIAL.NEB. NEB SCH (00:21)
[2017-03-21 00:44] VITALS: BMI 32.5
--- NOTE | 2017-03-21 08:22 | PN ---
Progress Note, Physician Chief Complaint: Recently discharged after admission w/ PNA, bacteremia and COPD exacerbation. Now with worsened SOB. Denies chest pain/palps/PND Repeat CT shows bilateral infiltrates c/w PNA. Elevated WBC. CT does not reveal significant pulmonary edema. History of Present Illness: PMH: Prior CVA, Thoracic Aneurysm 4.4 CM, PAD with carotid atheromatous disease , COPD, BPH, former Smoker, chronic HTN Recent Echo in our system reviewed: Normal LV systolic function with no sig valve disease. ALL: Noted in EMR. MEDS: Reviewed in EMR. FH: Non-contributory to this presentation SH: Former smoker, DNR/DNI - Current Medication List Current Medications: Active Medications Aclidinium [place] (Tudorza -) 1 puff IH BID CAREY Albuterol Sulfate (Ventolin 0.083% Nebulizer Soln -) 1 amp NEB BID CAREY Amlodipine Besylate (Norvasc -) 10 mg PO DAILY CAREY Atorvastatin Calcium (Lipitor -) 10 mg PO HS CAREY Cholecalciferol (Vitamin D3 -) 1,000 unit PO DAILY CAREY Cholestyramine Resin (Questran Light Packet -) 4 gm PO BID CAREY Dipyridamole/Aspirin (Aggrenox -) 1 combo PO BID CAREY Hydralazine HCl (Apresoline -) 10 mg PO BID CAREY Levetiracetam 250 mg/ (Levetiracetam 500 mg) 750 mg PO BID CAREY Loratadine (Claritin -) 10 mg PO DAILY CAREY Mometasone Furoate (Asmanex 220mcg -) 1 puff IH HS CAREY Montelukast Sodium (Singulair -) 10 mg PO HS CAREY Non-Formulary Medication (Lipase/Protease/Amylase [Pancrease Ec Capsule]) 4 each PO DAILY CAREY Non-Formulary Medication (Menthol/Zinc Oxide [Calmoseptine Ointment]) 71 gm TP QID CAREY Nystatin (Nystop Powder -) 1 applic TP BID CAREY Oxymetazoline HCl (Afrin -) 2 spray NS BID PRN PRN Reason: NASAL CONGESTION Prednisone (Deltasone -) 20 mg PO DAILY CAREY Ranitidine HCl (Zantac -) 150 mg PO BID CAREY Solifenacin (Vesicare -) 10 mg PO DAILY CAREY Tamsulosin HCl (Flomax -) 0.4 mg PO DAILY CAREY - Objective Vital Signs: Vital Signs Temperature 98.0 F 03/21/17 06:00 Pulse Rate 73 03/21/17 06:00 Respiratory Rate 20 03/21/17 07:00 Blood Pressure 143/58 03/21/17 06:00 O2 Sat by Pulse Oximetry (%) 94 L 03/20/17 22:00 Constitutional: Yes: Calm Eyes: Yes: Conjunctiva Clear Neck: Yes: Supple, Other (No JVD) Cardiovascular: Yes: Regular Rate and Rhythm Respiratory: Yes: Other (Bilateral scattered expiratory wheezing and b/l rhonchi ) Gastrointestinal: Yes: Soft (non-tender) Edema: Yes Edema: LLE: Trace, RLE: Trace Neurological: Yes: Alert Labs: INR, PTT INR 1.06 (0.82-1.09) 03/20/17 17:05 Laboratory Tests 03/19/17 03/19/17 03/20/17 06:10 06:10 17:05 WBC 17.4 H 18.8 H Hgb 9.8 L D 9.8 L Hct 30.2 L Plt Count 129 L 186 D ABG pH ABG pCO2 at Pt Temp ABG pO2 at Pt Temp Oxygen Flow Rate Sodium 141 Potassium 4.1 BUN 52 H Creatinine 1.0 Calcium 8.6 ALT Alkaline Phosphatase Troponin I 03/20/17 03/20/17 17:05 18:42 WBC Hgb Hct Plt Count ABG pH 7.43 ABG pCO2 at Pt Temp 35.0 ABG pO2 at Pt Temp 65.6 L Oxygen Flow Rate 3l Sodium 140 Potassium 5.2 H D BUN 59 H Creatinine 1.1 Calcium ALT 26 Alkaline Phosphatase 53 Troponin I 0.05 D - ....Imaging Chest X-ray: Report Reviewed, Image Reviewed Cat Scan: Report Reviewed, Image Reviewed EKG: Image Reviewed (NSR, RBBB) Problem List - Problems (1) Pneumonia Code(s): J18.9 - PNEUMONIA, UNSPECIFIED ORGANISM Qualifiers: Pneumonia type: due to unspecified organism Laterality: bilateral Lung location: lower lobe of lung Qualified Code(s): J18.9 - Pneumonia, unspecified organism (2) COPD exacerbation Code(s): J44.1 - CHRONIC OBSTRUCTIVE PULMONARY DISEASE W (ACUTE) EXACERBATION (3) Respiratory distress Code(s): R06.00 - DYSPNEA, UNSPECIFIED (4) CVA (cerebral vascular accident) Assessment/Plan: -Old Code(s): I63.9 - CEREBRAL INFARCTION, UNSPECIFIED Qualifiers: CVA mechanism: unspecified Qualified Code(s): I63.9 - Cerebral infarction, unspecified (5) HTN (hypertension) Code(s): I10 - ESSENTIAL (PRIMARY) HYPERTENSION Qualifiers: Hypertension type: essential hypertension Qualified Code(s): I10 - Essential (primary) hypertension (6) Thoracic aneurysm without mention of rupture Code(s): I71.2 - THORACIC AORTIC ANEURYSM, WITHOUT RUPTURE Qualifiers: Presence of rupture: without rupture Qualified Code(s): I71.2 - Thoracic aortic aneurysm, without rupture (7) Peripheral arterial disease Code(s): I73.9 - PERIPHERAL VASCULAR DISEASE, UNSPECIFIED Assessment/Plan 89 year old man with a history of HTN, HLD, CAD, Chronic diastolic CHF, past CVA/TIA, COPD, Prostate Ca, PAD with recent admission for PNA/sepsis, COPD exacerbation now readmitted with respiratory distress, leukocytosis and CT showing bilateral PNA. SOB-primarily secondary to COPD and bilateral PNA. CT does not show significant volume overload. -echo showed no sig structural heart disease, normal LV function, no sig valvular abnl, no change from echo 2015 -Would not diurese at this time, will follow clinically and diurese PRN if volume overload develops. -Suppliment O2 and abx as per ID and Pulmonary. CAD- Mild troponin elevation last admission did not significantly trend up, unlikely type 1 FL. Probably secondary to underlying infection -on Aggrenox, ok to use this for CAD (ASA) -no bblocker given h/o sig conduction disease and COPD -cont Lipitor
--- NOTE | 2017-03-21 09:01 | EKG ---
Test Reason : Blood Pressure : / mmHG Vent. Rate : 075 BPM Atrial Rate : 075 BPM P-R Int : 216 ms QRS Dur : 136 ms QT Int : 412 ms P-R-T Axes : 012 -21 019 degrees QTc Int : 460 ms POOR DATA QUALITY, INTERPRETATION MAY BE ADVERSELY AFFECTED SINUS RHYTHM WITH 1ST DEGREE A-V BLOCK RIGHT BUNDLE BRANCH BLOCK ABNORMAL ECG WHEN COMPARED WITH ECG OF 09-MAR-2017 13:47, PREMATURE VENTRICULAR COMPLEXES ARE NO LONGER PRESENT Confirmed by PARTH KINNEY MD ([id number]) on 03/21/2017 9:01:16 AM Referred By: Confirmed By:PARTH KINNEY MD
--- NOTE | 2017-03-21 09:07 | HP ---
Admitting History and Physical - Primary Care Physician PCP: Manpreet Acevedo - Admission Chief Complaint: worsening SOB, diarrhea History of Present Illness: 89 year old man with significant past medical history of hypertension, hyperlipidemia, CAD, Chronic diastolic CHF, h/o CVA/TIA, COPD, Prostate Ca, PAD with recent admission for PNA/sepsis, COPD exacerbation now readmitted with worsening shortness of breath. He also c/o having loose bowel movements and nausea. CT Chest shows: Bilateral Pneumonia. Patient seen and examined. C/O Shortness of breath which is worse than before. C/O Nausea and mild abdominal discomfort. 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: Yes: CVA, Dementia, TIA Cardiovascular: Yes: CAD, HTN Pulmonary: Yes: COPD Gastrointestinal: Yes: Other (HX OF PROGRESSIVE REGURGITATION FOR YEARS, PLACED ON OMEPRAZOLE BY PMD NO WORK UP EVER DONE DESPITE SYMPTOMS) Renal/: Yes: Cancer (prostate) - Past Surgical History Past Surgical History: Yes: Carotid Endarterectomy (carotid "stent" about 2 years go), Stent (carotid; denies cardiac stent) - Advance Directives Advance Directives: Yes: Living Will, Health Care Proxy, DNR - Smoking History Smoking history: Former smoker Have you smoked in the past 12 months: No Aproximately how many cigarettes per day: 0 If you are a former smoker, when did you quit?: over 20 years go - Alcohol/Substance Use Hx Alcohol Use: No - Social History ADL: Family Assistance History of Recent Travel: No Home Medications - Allergies Allergies/Adverse Reactions: Allergies Allergy/AdvReac Type Severity Reaction Status Date / Time Anesthetics - Angle Type- Allergy Unknown Verified 03/20/17 17:27 Parabens [Anesthetics - Angle Type] latex Allergy Verified 03/20/17 17:27 - Home Medications Home Medications: Ambulatory Orders Albuterol 0.083% Nebulizer Lela [Ventolin 0.083% Nebulizer Soln -] 1 neb NEB BID 09/30/14 Aspirin/Dipyridamole [Aggrenox -] 1 combo PO BID 09/30/14 Cholecalciferol (Vitamin D3) [Vitamin D3] 1,000 unit PO DAILY 09/30/14 Cholestyramine/Sucrose [Cholestyramine Packet] 4 gm PO BID PRN 09/30/14 Fluticasone Propionate [Flovent Hfa] 110 mg IH BID 09/30/14 Levetiracetam [Keppra -] 750 mg PO BID 09/30/14 Lipase/Protease/Amylase [Pancrease EC Capsule] 4 each PO DAILY 09/30/14 Loratadine 10 mg PO DAILY 09/30/14 Montelukast Na [Singulair -] 10 mg PO HS 09/30/14 Simvastatin [Zocor] 20 mg PO HS 09/30/14 Solifenacin Succinate [Vesicare] 10 mg PO DAILY 09/30/14 Tamsulosin HCl [Flomax -] 0.4 mg PO DAILY 09/30/14 Tiotropium [place] [Spiriva] 1 inh PO DAILY 09/30/14 Lipase/Protease/Amylase [Pancrelipase 5,000 Dr Capsule -] 2 each PO BIDWM #60 cap 10/06/14 Oxymetazoline 0.05% Nasal Soln [Afrin -] 2 spray NS BID PRN #7 spraybtl Ranitidine [Zantac -] 150 mg PO BID #30 tablet 10/06/14 Tramadol HCl 50 mg PO Q6H #20 tablet MDD 200mg 01/08/17 Amlodipine Besylate [Norvasc -] 10 mg PO DAILY #30 tablet 03/19/17 Azithromycin 500 mg PO DAILY #5 tablet 03/19/17 Cefuroxime Axetil [Ceftin -] 500 mg PO BID #14 tablet 03/19/17 Hydralazine HCl 10 mg PO BID #60 tablet 03/19/17 Prednisone [Deltasone -] See Taper PO DAILY #30 tablet 03/19/17 Menthol/Zinc Oxide [Calmoseptine Ointment] 71 gm TP QID 03/20/17 Nystatin Powder [Nystop Topical Powder -] 15 gm TP BID 03/20/17 Review of Systems - Review of Systems Constitutional: reports: Lethargy, Weakness Eyes: reports: No Symptoms HENT: reports: No Symptoms Neck: reports: Stiffness Cardiovascular: reports: Shortness of Breath Respiratory: reports: Cough, SOB, Wheezing Gastrointestinal: reports: Nausea Genitourinary: reports: No Symptoms Musculoskeletal: reports: Back Pain Neurological: reports: No Symptoms Physical Examination Vital Signs: Vital Signs Temperature 98.0 F 03/21/17 06:00 Pulse Rate 73 03/21/17 06:00 Respiratory Rate 20 03/21/17 07:00 Blood Pressure 143/58 03/21/17 06:00 O2 Sat by Pulse Oximetry (%) 94 L 03/20/17 22:00 Constitutional: Yes: Moderate Distress, Obese Eyes: Yes: Conjunctiva Clear, EOM Intact HENT: Yes: Atraumatic, Normocephalic Neck: Yes: Supple, Trachea Midline Cardiovascular: Yes: Regular Rate and Rhythm Respiratory: Yes: Diminished (air entry decreased b/l lung base) Gastrointestinal: Yes: Normal Bowel Sounds, Soft ...Rectal Exam: Yes: Deferred Musculoskeletal: Yes: Back Pain Neurological: Yes: Alert, Oriented ...Motor Strength: WNL Psychiatric: Yes: Alert Imaging - Results Chest X-ray: Report Reviewed Cat Scan: Report Reviewed Problem List - Problems (1) Pneumonia Assessment/Plan: Bilateral Infiltrates on CT Scan noted. Leukocytosis. IV abx. Pulmonary and ID consulted. Code(s): J18.9 - PNEUMONIA, UNSPECIFIED ORGANISM Qualifiers: Pneumonia type: due to unspecified organism Laterality: bilateral Lung location: lower lobe of lung Qualified Code(s): J18.9 - Pneumonia, unspecified organism (2) COPD exacerbation Assessment/Plan: With acute exacerbation. O2 NC/Inhaled bronchodilators/Solumedrol. Pulmonary consulted. Code(s): J44.1 - CHRONIC OBSTRUCTIVE PULMONARY DISEASE W (ACUTE) EXACERBATION (3) YEISON (acute kidney injury) Assessment/Plan: BUN a touch high as compared to on the day of discharge. Renal consulted. Code(s): N17.9 - ACUTE KIDNEY FAILURE, UNSPECIFIED (4) Acute respiratory failure Code(s): J96.00 - ACUTE RESPIRATORY FAILURE, UNSP W HYPOXIA OR HYPERCAPNIA (5) CHF (congestive heart failure) Assessment/Plan: Cardiology follow up appreciated. Will continue current management. Code(s): I50.9 - HEART FAILURE, UNSPECIFIED Qualifiers: Congestive heart failure type: unspecified congestive heart failure type Congestive heart failure chronicity: unspecified congestive heart failure chronicity Qualified Code(s): I50.9 - Heart failure, unspecified (6) CVA (cerebral vascular accident) Assessment/Plan: stable. Continue aggrenox Code(s): I63.9 - CEREBRAL INFARCTION, UNSPECIFIED Qualifiers: CVA mechanism: unspecified Qualified Code(s): I63.9 - Cerebral infarction, unspecified (7) HTN (hypertension) Code(s): I10 - ESSENTIAL (PRIMARY) HYPERTENSION Qualifiers: Hypertension type: essential hypertension Qualified Code(s): I10 - Essential (primary) hypertension (8) Duodenitis Assessment/Plan: CT Scan shows duodenitis. Patient with nausea, abdominal discomfort. GI consulted. Code(s): K29.80 - DUODENITIS WITHOUT BLEEDING
[2017-03-21] MEDS ORDERED: levETIRAcetam 250 MG TABLET (FP) PO ONE (09:24)
[2017-03-21] MEDS ORDERED: levETIRAcetam 500 MG TABLET (FP) PO ONE (09:24)
[2017-03-21] MEDS ORDERED: PT OWN MED DRAWER 7, Y5N ONE ×3 (09:25→17:47)
[2017-03-21] MEDS ORDERED: PATIENT'S OWN MEDICATION (NON-FORMULARY) (Menthol/Zinc Oxide [Calmoseptine Ointment] 71 GM TP SCH (10:00)
[2017-03-21] MEDS ORDERED: predniSONE 20 MG TABLET (UD) PO SCH (10:00)
[2017-03-21] MEDS ORDERED: ASPIRIN/DIPYRIDAMOLE 25 MG/200 MG CAPSULE (FP) PO SCH (10:00)
[2017-03-21] MEDS ORDERED: PATIENT'S OWN MEDICATION (NON-FORMULARY) (Levetiracetam [Keppra -] 750 MG) PO SCH (10:00)
[2017-03-21] MEDS ORDERED: RANITIDINE HCL 150 MG TABLET (FP) PO SCH (10:00)
--- NOTE | 2017-03-21 11:12 | CONSULT ---
Consultation: REQUESTING PROVIDER: CONSULT REQUEST: We have been asked to medically evaluate this patient for worsening SOB. CC: Worsening SOB HISTORY OF PRESENT ILLNESS: 89 y/o man with pmh of HTN, diastolic CHF, COPD, prior CVA/TIA, Prostate Ca, PAD , CAD, who was recently admitted for PNA/sepsis and COPD exacerbation and now is readmitted for worsening SOB. Pt was admitted on 03/08 for suspected PNA and COPD exacerbation due to SOB and cough with sputum production and presented with acute mental status change in acute respiratory distress. Pt was managed with Bipap for respiratory support, receiving abx and was discharged on a steroid taper upon improving clinically on 03/19. He saw Dr. Farley in clinic yesterday and was urged to return to ED due to worsening of SOB and declining respiratory status. Patient confirmed increased SOB, abdominal discomfort, and recent diarrhea. He endorses fever, N/V, new chest pain, diarrhea and productive cough. He denies hemoptysis, dysuria, dizziness. Patient has been admitted for prior COPD exacerbation, but has never been intubated. Denies any recent travel, sick contacts, or changes in diet/routine. Source: Patient, prior notes. History limited by patient's clinical condition. PMHx: CAD, HTN COPD - diagnosed roughly 4-5 years ago. GERD - No significant work-up performed Prostate Ca PSHx - Carotid stent/endarterectomy 2 years ago Meds Home Medications Medication Instructions Recorded RX: Albuterol 0.083% Nebulizer Lela 1 neb NEB BID 09/30/14 [Ventolin 0.083% Nebulizer Soln -] RX: Aspirin/Dipyridamole [Aggrenox 1 combo PO BID 09/30/14 -] RX: Cholecalciferol (Vitamin D3) 1,000 unit PO DAILY 09/30/14 [Vitamin D3] RX: Cholestyramine/Sucrose 4 gm PO BID PRN 09/30/14 [Cholestyramine Packet] RX: Fluticasone Propionate 110 mg IH BID 09/30/14 [Flovent Hfa] RX: Levetiracetam [Keppra -] 750 mg PO BID 09/30/14 RX: Lipase/Protease/Amylase 4 each PO DAILY 09/30/14 [Pancrease EC Capsule] RX: Loratadine 10 mg PO DAILY 09/30/14 RX: Montelukast Na [Singulair -] 10 mg PO HS 09/30/14 RX: Simvastatin [Zocor] 20 mg PO HS 09/30/14 RX: Solifenacin Succinate 10 mg PO DAILY 09/30/14 [Vesicare] RX: Tamsulosin HCl [Flomax -] 0.4 mg PO DAILY 09/30/14 RX: Tiotropium [employer] [Spiriva] 1 inh PO DAILY 09/30/14 RX: Lipase/Protease/Amylase 2 each PO BIDWM #60 cap 10/06/14 [Pancrelipase 5,000 Dr Capsule -] RX: Oxymetazoline 0.05% Nasal Soln 2 spray NS BID PRN #7 spraybtl 10/06/14 [Afrin -] RX: Ranitidine [Zantac -] 150 mg PO BID #30 tablet 10/06/14 RX: Tramadol HCl 50 mg PO Q6H #20 tablet MDD 200mg 01/08/17 Cefuroxime Axetil [Ceftin -] 500 mg PO BID #14 tablet 03/19/17 RX: Amlodipine Besylate [Norvasc -] 10 mg PO DAILY #30 tablet 03/19/17 RX: Azithromycin 500 mg PO DAILY #5 tablet 03/19/17 RX: Hydralazine HCl 10 mg PO BID #60 tablet 03/19/17 RX: Prednisone [Deltasone -] See Taper PO DAILY #30 tablet 03/19/17 Menthol/Zinc Oxide [Calmoseptine 71 gm TP QID 03/20/17 Ointment] Nystatin Powder [Nystop Topical 15 gm TP BID 03/20/17 Powder -] Allergies : Allergies Allergy/AdvReac Type Severity Reaction Status Date / Time Anesthetics - Angle Type- Allergy Unknown Verified 03/20/17 17:27 Parabens [Anesthetics - Angle Type] latex Allergy Verified 03/20/17 17:27 Social Hx: No recent travel. Employment Hx not obtained. Family assitance with ADLs Prior smoker, stop 20 years ago. PYs not determined. Denies alcohol, drug use Family Hx: Noncontributory REVIEW OF SYSTEMS: CONSTITUTIONAL: Fevers, malaise Absent: generalized weakness HEENT: Absent: rhinorrhea, nasal congestion, throat pain CARDIOVASCULAR: Chest pain, palpitations, irregular heart rate, BL LE Edema Absent: RESPIRATORY: Worsening SOB, productive cough, dyspnea w/ exertion Absent: orthopnea, hemoptysis GASTROINTESTINAL: Abdominal pain, N/V, diarrhea Absent: constipation, hematochezia GENITOURINARY: Absent: dysuria, hematuria, flank pain MUSCULOSKELETAL: Absent: myalgia, arthralgia, joint swelling SKIN: Absent: rash HEMATOLOGIC/IMMUNOLOGIC: easy bleeding, easy bruising Absent: NEUROLOGIC: Occasional [place] Absent: dizziness, bladder or bowel incontinence PHYSICAL EXAMINATION Vital Signs - 24 hr 03/21/17 03/21/17 03/21/17 02:00 06:00 07:00 Temperature 97.7 F 98.0 F Pulse Rate 70 73 Respiratory 24 20 20 Rate Blood Pressure 117/51 143/58 O2 Sat by Pulse Oximetry (%) 03/21/17 09:48 Temperature Pulse Rate 70 Respiratory Rate Blood Pressure O2 Sat by Pulse 94 L Oximetry (%) GENERAL: Somnolent w/ mild delirium. Significant WOB/respiratory effort. HEAD: Normal with no signs of trauma. No temporal arteritis or wasting. EYES: Pupils equal, round and reactive to light, extraocular movements intact, sclera anicteric, conjunctiva clear. EARS, NOSE, THROAT: Ears normal, nares patent. Dried blood on lips and tongue. NECK: supple without lymphadenopathy. JVD to angle of mandible LUNGS: Bilateral rales across all lung pineda. Prominent expiratory wheeze auscultated bilaterally. No accessory muscle use. No tactile fremitus. HEART: Difficult to appreciate. Distant heart sounds. Regular rate and rhythm, normal S1 and S2 w/o m/c/g/r per limited auscultation. ABDOMEN: Soft, nontender, distended, hypoactive bowel sounds. No guarding, no rebound, no masses. Negative joseph's sign. MUSCULOSKELETAL: No bony deformities or tenderness. No CVA tenderness. Tenderness to palpation over sternum. UPPER EXTREMITIES: warm, well-perfused. No cyanosis. No clubbing. No peripheral edema. LOWER EXTREMITIES: 2+ pulses, cool to touch bilaterally. 2+ bilateral pitting edema. NEUROLOGICAL: Slow speech. Gait not evaluated. PSYCHIATRIC: Cooperative. Intermittent eye contact. Waxing and waning attention during exam. SKIN: Warm, dry, no rashes or lesions noted. Active Medications Generic Name Dose Route Start Last Admin Trade Name Freq PRN Reason Stop Dose Admin Aclidinium [employer] 1 puff 03/21/17 10:00 Tudorza - IH BID [facility] Albuterol/Ipratropium 1 amp 03/21/17 12:00 Duoneb - NEB QIDR [facility] Amlodipine Besylate 10 mg 03/21/17 10:00 Norvasc - PO DAILY [facility] Atorvastatin Calcium 10 mg 03/21/17 22:00 Lipitor - PO HS [facility] Cholecalciferol 1,000 unit 03/21/17 10:00 Vitamin D3 - PO DAILY [facility] Cholestyramine Resin 4 gm 03/21/17 05:58 Questran Light Packet - PO BID [facility] Dipyridamole/Aspirin 1 combo 03/21/17 10:00 Aggrenox - PO BID [facility] Guaifenesin 600 mg 03/21/17 10:00 Mucinex - PO BID [facility] Hydralazine HCl 10 mg 03/21/17 10:00 Apresoline - PO BID [facility] Levetiracetam 250 mg/ 750 mg 03/21/17 10:00 Levetiracetam 500 mg PO BID [facility] Loratadine 10 mg 03/21/17 10:00 Claritin - PO DAILY [facility] Methylprednisolone Sodium Succinate 40 mg 03/21/17 10:00 Solu-Medrol - IVPB Q8H-IV [facility] Mometasone Furoate 1 puff 03/21/17 22:00 Asmanex 220mcg - IH HS [facility] Montelukast Sodium 10 mg 03/21/17 22:00 Singulair - PO HS [facility] Non-Formulary Medication 4 each 03/21/17 10:00 Lipase/Protease/Amylase [Pancrease Ec Capsule] PO DAILY [facility] Non-Formulary Medication 71 gm 03/21/17 10:00 Menthol/Zinc Oxide [Calmoseptine Ointment] TP QID [facility] Nystatin 1 applic 03/21/17 10:00 Nystop Powder - TP BID [facility] Oxymetazoline HCl 2 spray 03/20/17 23:00 Afrin - NS BID PRN [facility]ST[facility] Ranitidine HCl 150 mg 03/21/17 10:00 Zantac - PO BID [facility] Solifenacin 10 mg 03/21/17 10:00 Vesicare - PO DAILY [facility] Tamsulosin HCl 0.4 mg 03/21/17 10:00 Flomax - PO DAILY [facility] Labs: CBC, BMP 03/20/17 17:05 03/20/17 17:05 ABG Results ABG pH 7.43 (7.35-7.45) 03/20/17 18:42 ABG pCO2 at Pt Temp 35.0 mmHg (35-45) 03/20/17 18:42 ABG pO2 at Pt Temp 65.6 mmHg (68-100) L 03/20/17 18:42 ABG HCO3 22.5 meq/L (22-26) 03/20/17 18:42 ABG O2 Sat (Measured) 92.6 % (90-98.9) 03/20/17 18:42 ABG O2 Content 10.8 % vol (15-22) L 03/20/17 18:42 ABG Base Excess -1.1 meq/l (-2-2) 03/20/17 18:42 Microbiology 03/21/17 09:55 Clostridium difficile Antigen (LAMONTE) - Final Stool Clostridium difficile Toxin Assay - Final Laboratory Last Values WBC 18.8 K/mm3 (4.0-10.0) H 03/20/17 17:05 RBC 3.28 M/mm3 (4.00-5.60) L 03/20/17 17:05 Hgb 9.8 GM/dL (11.7-16.9) L 03/20/17 17:05 Hct 29.9 % (35.4-49) L 03/20/17 17:05 MCV 91.1 fl (80-96) 03/20/17 17:05 MCHC 32.8 g/dl (32.0-35.9) 03/20/17 17:05 RDW 16.0 % (11.9-15.9) H 03/20/17 17:05 Plt Count 186 K/MM3 (134-434) D 03/20/17 17:05 MPV 8.7 fl (7.5-11.1) 03/20/17 17:05 Neutrophils % 96.0 % (42.8-82.8) H 03/20/17 17:05 Lymphocytes % 1.7 % (8-40) L D 03/20/17 17:05 Monocytes % 2.0 % (3.8-10.2) L 03/20/17 17:05 Eosinophils % 0.1 % (0-4.5) 03/20/17 17:05 Basophils % 0.2 % (0-2.0) 03/20/17 17:05 INR 1.06 (0.82-1.09) 03/20/17 17:05 PTT (Actin FS) 25.0 SECONDS (26.9-34.4) L 03/20/17 17:05 Puncture Site Right radial 03/20/17 18:42 ABG pH 7.43 (7.35-7.45) 03/20/17 18:42 ABG pCO2 at Pt Temp 35.0 mmHg (35-45) 03/20/17 18:42 ABG pO2 at Pt Temp 65.6 mmHg (68-100) L 03/20/17 18:42 ABG HCO3 22.5 meq/L (22-26) 03/20/17 18:42 ABG O2 Sat (Measured) 92.6 % (90-98.9) 03/20/17 18:42 ABG O2 Content 10.8 % vol (15-22) L 03/20/17 18:42 ABG Base Excess -1.1 meq/l (-2-2) 03/20/17 18:42 Damián Test Positive 03/20/17 18:42 O2 Delivery Device Nasal 03/20/17 18:42 Oxygen Flow Rate 3l 03/20/17 18:42 PEEP 0.0 cmH2O 03/20/17 18:42 Sodium 140 mmol/L (136-145) 03/20/17 17:05 Potassium 5.2 mmol/L (3.5-5.1) H D 03/20/17 17:05 Chloride 107 mmol/L (98-107) 03/20/17 17:05 Carbon Dioxide 26 mmol/L (21-32) 03/20/17 17:05 Anion Gap 7 (8-16) L 03/20/17 17:05 BUN 59 mg/dL (7-18) H 03/20/17 17:05 Creatinine 1.1 mg/dL (0.7-1.3) 03/20/17 17:05 Creat Clearance w eGFR > 60 (>60) 03/20/17 17:05 Random Glucose 174 mg/dL (74-106) H D 03/20/17 17:05 Lactic Acid 1.3 mmol/L (0.4-2.0) 03/20/17 17:05 Calcium 8.5 mg/dL (8.5-10.1) 03/20/17 17:05 Total Bilirubin 0.6 mg/dL (0.2-1.0) 03/20/17 17:05 AST 15 U/L (15-37) D 03/20/17 17:05 ALT 26 U/L (12-78) 03/20/17 17:05 Alkaline Phosphatase 53 U/L (45-117) 03/20/17 17:05 Creatine Kinase 62 IU/L (39-308) 03/20/17 17:05 Troponin I 0.05 ng/ml (0.00-0.05) D 03/20/17 17:05 Total Protein 5.8 g/dl (6.4-8.2) L 03/20/17 17:05 Albumin 2.7 g/dl (3.4-5.0) L 03/20/17 17:05 Urine Color Lt. yellow 03/20/17 18:11 Urine Appearance Clear 03/20/17 18:11 Urine pH 6.5 (5.0-8.0) D 03/20/17 18:11 Ur Specific [place] 1.020 (1.005-1.025) 03/20/17 18:11 Urine Protein Negative (NEGATIVE) 03/20/17 18:11 Urine Glucose (UA) Negative (NEGATIVE) 03/20/17 18:11 Urine Ketones Negative (NEGATIVE) 03/20/17 18:11 Urine Blood 1+ (NEGATIVE) H 03/20/17 18:11 Urine Nitrite Negative (NEGATIVE) 03/20/17 18:11 Urine Bilirubin Negative (NEGATIVE) 03/20/17 18:11 Urine Urobilinogen 0.2 e.u/dl E.U./dl (0.2-1.0) 03/20/17 18:11 Ur Leukocyte Esterase Trace (NEGATIVE) H 03/20/17 18:11 Urine RBC 5 /hpf (0-3) 03/20/17 18:11 Urine WBC 9 /hpf (3-5) 03/20/17 18:11 Ur Epithelial Cells Rare /hpf (FEW) 03/20/17 18:11 Urine Mucus Rare 03/20/17 18:11 Urine Yeast Few 03/20/17 18:11 Blood Type O POSITIVE 03/20/17 17:05 Antibody Screen Negative 03/20/17 17:05 Studies: ECG (03/20) - NSR Rate 75. 1st degree av block. RBBB Echo (03/10) - Suboptimal. Grossly normal ventricular anatomy. Biatrial enlargement. CXR (03/20) - (my read) Increased cardiac silhouette. Widened mediastinum. Possible pericardial effusion. CT (03/20) - (per radiology read) Small pericardial effusion. Aneurysmal dilatation of the aorta. No mediastinal lymphadenopathy. Chronic interstitial thickening in RUL. Bibasilar atelctatic changes and pneumonic infiltrates. Fat stranding suggestive of duodenitis. ASSESSMENT/PLAN: Impression: 89 y/o man with pmh of HTN, diastolic CHF, COPD, Prostate Ca, CAD, who presented to ED in acute respiratory distress on the night of 03/20 with worsening SOB and productive cough w/ new onset diarrhea and abdominal discomfort, following a prior admission for COPD exacerbation and PNA on 03/08 and recent discharge on 03/19. Patient appears toxic, with mild delirium, worsening SOB/dyspnea, elevated WBC w/ left shift, and possible bibasilar infiltrates on CXR. CT notable for possible pericardial effusion. Differential includes a possible HCAP PNA given recent hospitalization w/ concurrent COPD exacerbation, however must also consider possible cardiogenic causes given possible pericardial effusion and clinical findings of JVD, muffled heart sounds , and bilateral rales on lung exam. Recommend abx coverage for HCAP and continuation of steroid regimen/o2 supp/inhaled BA/ICS. Consider escalation to Bipap if respiratory status declines. Plan: #PNA/Sepsis - Blaze/Zosyn for HCAP Coverage - Blood, sputum, urine cx - IV hydration. Monitor volume status - Trend lactate #COPD - Continue Solumedrol 40mg BID - Duoneb #Respiratory Distress - 2nd ABG - Continue 3L NC. Escalate to Bipap if respiratory status worsens #Pericardial effusion - Echo to evaluate for suspected effusion on CT - BNP Irwin Dhillon MD, PGY1 Plan discussed with attending, Dr. Ho Dispo: We will continue to follow the patient. Thank you for this consultative opportunity. Problem List - Problems (1) COPD exacerbation Code(s): J44.1 - CHRONIC OBSTRUCTIVE PULMONARY DISEASE W (ACUTE) EXACERBATION (2) Pneumonia Code(s): J18.9 - PNEUMONIA, UNSPECIFIED ORGANISM Qualifiers: Pneumonia type: due to unspecified organism Laterality: bilateral Lung location: lower lobe of lung Qualified Code(s): J18.9 - Pneumonia, unspecified organism (3) Respiratory distress Code(s): R06.00 - DYSPNEA, UNSPECIFIED (4) Acute respiratory failure Code(s): J96.00 - ACUTE RESPIRATORY FAILURE, UNSP W HYPOXIA OR HYPERCAPNIA Qualifiers: Respiratory failure complication: hypoxia Qualified Code(s): J96.01 - Acute respiratory failure with hypoxia Visit type - Emergency Visit Emergency Visit: No - New Patient This patient is new to me today: Yes Date on this admission: 03/21/17 - Critical Care Critical Care patient: No
[2017-03-21] MEDS: LEVETIRACETAM 250 MG, LEVETIRACETAM 500 MG PO SCH ×2 (11:24→22:30)
[2017-03-21] MEDS: LORATADINE 10 MG TABLET PO SCH (11:25)
[2017-03-21] MEDS: CHOLECALCIFEROL (VITAMIN D3) 1,000 UNIT TABLET (FP) PO SCH (11:25)
[2017-03-21] MEDS: SOLIFENACIN SUCCINATE 5 MG TAB (FP) PO SCH (11:25)
[2017-03-21] MEDS: amLODIPine BESYLATE 10 MG TABLET (FP) PO SCH (11:25)
[2017-03-21] MEDS: TAMSULOSIN HCL 0.4 MG CAP.ER.24H (FP) PO SCH (11:26)
[2017-03-21] MEDS: NYSTATIN POWDER 100,000 UNITS/GM - 15 GM TOPICAL POWDER TP SCH ×2 (11:26→21:33)
[2017-03-21] MEDS: CHOLESTYRAMINE/ASPARTAME 4 GM PACKET PO SCH ×2 (11:27→22:30)
[2017-03-21] MEDS: ACLIDINIUM BROMIDE 400 MCG/INH AERO.POWD IH SCH ×2 (11:27→21:34)
[2017-03-21] MEDS: ALBUTEROL SO4 2.5/IPRATROPIUM 0.5 INH SOL 3 ML VIAL.NEB. NEB SCH ×3 (11:44→23:01)
[2017-03-21] MEDS: methylPREDNISolone NA SUCC 40 MG/1 ML VIAL IVPB SCH ×2 (11:55→18:14)
[2017-03-21] MEDS: guaiFENesin 600 MG TABLET.ER (FP) PO SCH ×2 (11:56→21:29)
[2017-03-21] MEDS ORDERED: PIPERACILLIN/TAZOB 3.375 GM/50 ML PRE-DOCKED IVPB ONE (14:15)
--- NOTE | 2017-03-21 15:08 | CONSULT ---
Consult Consult Specialty:: infectious diseases Referred by:: Reason for Consultation:: pneumonia,resp failure - History of Present Illness Chief Complaint: resp distress History of Present Illness: this patient known to me from the last admission who was discharged and send to rehab patient was evaluated in rehab by and found to be in sever resp distress and using accessory muscles of respiration patient also was lethargic and and was showing signs of ams patient was admitted with resp failure before and with pneumonia and was treated wiht abx that time and was switched to oral abx and then send to rhabd now patient worked up and found to have pneumonia patient also is having bleeding per rectum and is going to be seen by gi currently the patients resp status is improving and is being monitored in icu - History Source History Provided By: Family Member Limitations to Obtaining History: Clinical Condition - Past Medical History 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, 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, 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 Cardio/Vascular: Yes: CAD, HTN Pulmonary: Yes: COPD Gastrointestinal: Yes: Other (HX OF PROGRESSIVE REGURGITATION FOR YEARS, PLACED ON OMEPRAZOLE BY PMD NO WORK UP EVER DONE DESPITE SYMPTOMS) Renal/: Yes: Cancer (prostate) - Past Surgical History Past Surgical History: Yes: Carotid Endarterectomy (carotid "stent" about 2 years go), Stent (carotid; denies cardiac stent) - Alcohol/Substance Use Hx Alcohol Use: No - Smoking History Smoking history: Former smoker Have you smoked in the past 12 months: No Aproximately how many cigarettes per day: 0 If you are a former smoker, when did you quit?: over 20 years go - Social History Usual Living Arrangement: With Spouse ADL: Family Assistance History of Recent Travel: No Home Medications - Allergies Allergies/Adverse Reactions: Allergies Allergy/AdvReac Type Severity Reaction Status Date / Time Anesthetics - Angle Type- Allergy Unknown Verified 03/20/17 17:27 Parabens [Anesthetics - Angle Type] latex Allergy Verified 03/20/17 17:27 - Home Medications Home Medications: Ambulatory Orders Albuterol 0.083% Nebulizer Lela [Ventolin 0.083% Nebulizer Soln -] 1 neb NEB BID 09/30/14 Aspirin/Dipyridamole [Aggrenox -] 1 combo PO BID 09/30/14 Cholecalciferol (Vitamin D3) [Vitamin D3] 1,000 unit PO DAILY 09/30/14 Cholestyramine/Sucrose [Cholestyramine Packet] 4 gm PO BID PRN 09/30/14 Fluticasone Propionate [Flovent Hfa] 110 mg IH BID 09/30/14 Levetiracetam [Keppra -] 750 mg PO BID 09/30/14 Lipase/Protease/Amylase [Pancrease EC Capsule] 4 each PO DAILY 09/30/14 Loratadine 10 mg PO DAILY 09/30/14 Montelukast Na [Singulair -] 10 mg PO HS 09/30/14 Simvastatin [Zocor] 20 mg PO HS 09/30/14 Solifenacin Succinate [Vesicare] 10 mg PO DAILY 09/30/14 Tamsulosin HCl [Flomax -] 0.4 mg PO DAILY 09/30/14 Tiotropium [place] [Spiriva] 1 inh PO DAILY 09/30/14 Lipase/Protease/Amylase [Pancrelipase 5,000 Dr Capsule -] 2 each PO BIDWM #60 cap 10/06/14 Oxymetazoline 0.05% Nasal Soln [Afrin -] 2 spray NS BID PRN #7 spraybtl Ranitidine [Zantac -] 150 mg PO BID #30 tablet 10/06/14 Tramadol HCl 50 mg PO Q6H #20 tablet MDD 200mg 01/08/17 Amlodipine Besylate [Norvasc -] 10 mg PO DAILY #30 tablet 03/19/17 Azithromycin 500 mg PO DAILY #5 tablet 03/19/17 Cefuroxime Axetil [Ceftin -] 500 mg PO BID #14 tablet 03/19/17 Hydralazine HCl 10 mg PO BID #60 tablet 03/19/17 Prednisone [Deltasone -] See Taper PO DAILY #30 tablet 03/19/17 Menthol/Zinc Oxide [Calmoseptine Ointment] 71 gm TP QID 03/20/17 Nystatin Powder [Nystop Topical Powder -] 15 gm TP BID 03/20/17 Review of Systems - Review of Systems Constitutional: reports: Lethargy Eyes: reports: No Symptoms HENT: reports: No Symptoms Neck: reports: No Symptoms Cardiovascular: reports: No Symptoms Respiratory: reports: Cough, SOB, SOB on Exertion Gastrointestinal: reports: No Symptoms Musculoskeletal: reports: No Symptoms Integumentary: reports: No Symptoms Neurological: reports: No Symptoms Endocrine: reports: No Symptoms Hematology/Lymphatic: reports: No Symptoms Psychiatric: reports: No Symptoms Physical Exam Vital Signs: Vital Signs Temperature 98.6 F 03/21/17 14:17 Pulse Rate 84 03/21/17 14:17 Respiratory Rate 21 03/21/17 14:17 Blood Pressure 150/59 03/21/17 14:17 O2 Sat by Pulse Oximetry (%) 93 L 03/21/17 10:00 Constitutional: Yes: Moderate Distress, Other Neck: Yes: Supple, Trachea Midline Cardiovascular: Yes: Regular Rate and Rhythm, Tachycardia Respiratory: Yes: On Nasal O2, Poor Air Entry, Rhonchi Gastrointestinal: Yes: Normal Bowel Sounds, Soft Musculoskeletal: Yes: Other Extremities: Yes: Other Neurological: Yes: Alert, Confusion Psychiatric: Yes: Alert, Other Imaging - Results Chest X-ray: Report Reviewed, Image Reviewed Cat Scan: Report Reviewed, Image Reviewed Other: Report Reviewed, Image Reviewed Assessment/Plan Problem List - Problems (1) Pneumonia Code(s): J18.9 - PNEUMONIA, UNSPECIFIED ORGANISM Qualifiers: Pneumonia type: due to unspecified organism Laterality: bilateral Lung location: lower lobe of lung Qualified Code(s): J18.9 - Pneumonia, unspecified organism (2) COPD exacerbation Code(s): J44.1 - CHRONIC OBSTRUCTIVE PULMONARY DISEASE W (ACUTE) EXACERBATION (3) YEISON (acute kidney injury) Code(s): N17.9 - ACUTE KIDNEY FAILURE, UNSPECIFIED (4) Acute respiratory failure Code(s): J96.00 - ACUTE RESPIRATORY FAILURE, UNSP W HYPOXIA OR HYPERCAPNIA (5) CHF (congestive heart failure) Code(s): I50.9 - HEART FAILURE, UNSPECIFIED Qualifiers: Congestive heart failure type: unspecified congestive heart failure type Congestive heart failure chronicity: unspecified congestive heart failure chronicity Qualified Code(s): I50.9 - Heart failure, unspecified (6) CVA (cerebral vascular accident) Code(s): I63.9 - CEREBRAL INFARCTION, UNSPECIFIED Qualifiers: CVA mechanism: unspecified Qualified Code(s): I63.9 - Cerebral infarction, unspecified (7) HTN (hypertension) Code(s): I10 - ESSENTIAL (PRIMARY) HYPERTENSION Qualifiers: Hypertension type: essential hypertension Qualified Code(s): I10 - Essential (primary) hypertension (8) Duodenitis Code(s): K29.80 - DUODENITIS WITHOUT BLEEDING plan will start patient on abx close monitoring await for gi to evaluate might need transfusions rest continue as per primary icu mgmt cc time 45 min
[2017-03-21] MEDS: hydrALAZINE HCL 50 MG TABLET (FP) PO SCH ×2 (15:39→21:29)
[2017-03-21] MEDS: ZINC OXIDE 20% TOPICAL OINTMENT 30 GM TUBE TP SCH ×2 (15:40→21:36)
--- NOTE | 2017-03-21 15:40 | CONSULT ---
Consultation: REQUESTING PROVIDER: CONSULT REQUEST: We have been asked to medically evaluate this patient for CKD HISTORY OF PRESENT ILLNESS: 89 year old male with significant PMHx of COPD, CHF, CAD, COPD, CVA, brought to the emergency room by EMS c/o having loose bowel movements and nausea. Recently discharged following a admission for sepsis secondary treated with IV antibiotics and discharged in stable condition. Denies CP, NAVARRETE,palpitations, fever, or chills. 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: CVA, Dementia, TIA Cardiovascular: Yes: CAD, HTN Pulmonary: Yes: COPD Gastrointestinal: Yes: Other (HX OF PROGRESSIVE REGURGITATION FOR YEARS, PLACED ON OMEPRAZOLE BY PMD NO WORK UP EVER DONE DESPITE SYMPTOMS) Renal/: Yes: Cancer (prostate) - Past Surgical History Past Surgical History: Yes: Carotid Endarterectomy (carotid "stent" about 2 years go), Stent (carotid; denies cardiac stent) - Advance Directives Advance Directives: Yes: Living Will, Health Care Proxy, DNR - Smoking History Smoking history: Former smoker Have you smoked in the past 12 months: No Aproximately how many cigarettes per day: 0 If you are a former smoker, when did you quit?: over 20 years go - Alcohol/Substance Use Hx Alcohol Use: No REVIEW OF SYSTEMS: CONSTITUTIONAL: (+) generalized weakness, malaise, loss of appetite, Absent: fever, chills, diaphoresis, weight change HEENT: Absent: rhinorrhea, nasal congestion, throat pain, throat swelling, difficulty swallowing, mouth swelling, ear pain, eye pain, visual changes CARDIOVASCULAR: Absent: chest pain, syncope, palpitations, irregular heart rate, lightheadedness , peripheral edema RESPIRATORY:(+)shortness of breath, dyspnea with exertion Absent: cough, , orthopnea, wheezing, stridor, hemoptysis GASTROINTESTINAL:(+)abdominal pain, abdominal distension, nausea, vomiting Absent: , diarrhea, constipation, melena, hematochezia GENITOURINARY: Absent: dysuria, frequency, urgency, hesitancy, hematuria, flank pain, genital pain MUSCULOSKELETAL: Absent: myalgia, arthralgia, joint swelling, back pain, neck pain SKIN: Absent: rash, itching, pallor HEMATOLOGIC/IMMUNOLOGIC: Absent: easy bleeding, easy bruising, lymphadenopathy, frequent infections ENDOCRINE: Absent: unexplained weight gain, unexplained weight loss, heat intolerance, cold intolerance NEUROLOGIC: Absent: headache, focal weakness or paresthesias, dizziness, unsteady gait, seizure, mental status changes, bladder or bowel incontinence PSYCHIATRIC: Absent: anxiety, depression, suicidal or homicidal ideation, hallucinations. PHYSICAL EXAMINATION Vital Signs - 24 hr 03/21/17 14:17 Temperature 98.6 F Pulse Rate 84 Respiratory 21 Rate Blood Pressure 150/59 GENERAL: awake and alert, moderate distress. HEAD: AT/NC EYES: PERRL, EOMI, sclera anicteric, conjunctiva clear. No ptosis. NECK:Supple, no jvd LUNGS:scattered rhonci, expiratory wheezing. HEART: RRR, S1S2 ABDOMEN: Soft,obese , epigastric tenderness, mild distention. EXTREMITIES: 2+ pulses, warm, well-perfused, 1+ Lower ext. edema. Active Medications Generic Name Dose Route Start Last Admin Trade Name Freq PRN Reason Stop Dose Admin Aclidinium [place] 1 puff 03/21/17 10:00 03/21/17 11:27 Tudorza - IH 1 puff BID CAREY Administration Albuterol/Ipratropium 1 amp 03/21/17 12:00 03/21/17 11:44 Duoneb - NEB 1 amp QIDR CAREY Administration Amlodipine Besylate 10 mg 03/21/17 10:00 03/21/17 11:25 Norvasc - PO 10 mg DAILY CAREY Administration Atorvastatin Calcium 10 mg 03/21/17 22:00 Lipitor - PO HS CAREY Cholecalciferol 1,000 unit 03/21/17 10:00 03/21/17 11:25 Vitamin D3 - PO 1,000 unit DAILY CAREY Administration Cholestyramine Resin 4 gm 03/21/17 05:58 03/21/17 11:27 Questran Light Packet - PO 4 gm BID CAREY Administration Guaifenesin 600 mg 03/21/17 10:00 03/21/17 11:56 Mucinex - PO 600 mg BID CAREY Administration Hydralazine HCl 10 mg 03/21/17 10:00 Apresoline - PO BID CAREY Pantoprazole Sodium 80 mg/ 100 mls @ 10 mls/hr 03/21/17 14:45 Sodium Chloride IVPB Q10H CAREY 8 MG/HR Metronidazole 100 mls @ 100 mls/hr 03/21/17 15:15 Flagyl 500mg Premixed Ivpb - IVPB Q8H-IV CAREY Meropenem 1 gm/ Dextrose 100 mls @ 100 mls/hr 03/21/17 15:15 IVPB Q8H-IV CAREY Protocol Levetiracetam 250 mg/ 750 mg 03/21/17 10:00 03/21/17 11:24 Levetiracetam 500 mg PO 750 mg BID CAREY Administration Loratadine 10 mg 03/21/17 10:00 03/21/17 11:25 Claritin - PO 10 mg DAILY CAREY Administration Methylprednisolone Sodium Succinate 40 mg 03/21/17 10:00 03/21/17 11:55 Solu-Medrol - IVPB 40 mg Q8H-IV CAREY Administration Mometasone Furoate 1 puff 03/21/17 22:00 Asmanex 220mcg - IH HS CAREY Montelukast Sodium 10 mg 03/21/17 22:00 Singulair - PO HS CAREY Multi-Ingredient Ointment 1 applic 03/21/17 14:00 Zinc Oxide TP TID CAREY Non-Formulary Medication 4 each 03/21/17 10:00 Lipase/Protease/Amylase [Pancrease Ec Capsule] PO DAILY CAREY Nystatin 1 applic 03/21/17 10:00 03/21/17 11:26 Nystop Powder - TP 1 applic BID CAREY Administration Oxymetazoline HCl 2 spray 03/20/17 23:00 03/21/17 11:28 Afrin - NS 2 spray BID PRN Administration NASAL CONGESTION Piperacillin Sod/Tazobactam Sod 3.375 gm 03/21/17 18:00 Zosyn 3.375gm Ivpb (Pre-Docked) IVPB Q8H-IV CAREY Protocol Solifenacin 10 mg 03/21/17 10:00 03/21/17 11:25 Vesicare - PO 10 mg DAILY CAREY Administration Tamsulosin HCl 0.4 mg 03/21/17 10:00 03/21/17 11:26 Flomax - PO 0.4 mg DAILY CAREY Administration ASSESSMENT/PLAN: 89 year old male with significant PMHx of COPD, CHF, CAD, COPD, CVA, brought to the emergency room by EMS c/o having loose bowel movements and nausea. Admitted for acute GI bleed. Dispo: We will continue to follow the patient. Thank you for this consultative opportunity. Problem List - Problems (1) YEISON (acute kidney injury) Assessment/Plan: * Kidney function is at baseline. * No intervention at this time. * Avoid nephrotoxings. * Will continue to follow. (2) Duodenitis Assessment/Plan: * GI bleed. * Not a candidate for scope, * Evaluated by GI. (3) COPD exacerbation Assessment/Plan: * Continue supplemental O2 * Bipap PRN * taper steroids * Continue Singulair * Duoneb QID (4) HTN (hypertension) Assessment/Plan: * Continue Amlodipine 5mg PO daily * started on Hydralazine 10mg BID (5) CHF (congestive heart failure) Assessment/Plan: * Echo-no sig structural heart disease, normal LV function, no sig valvular abnl , no change from echo 2014 * Cardio consult appreciated * Losartan 50mg PO daily discontinued. * Sounded congested today will give one time Lasix 20mg IV Visit type - Emergency Visit Emergency Visit: Yes ED Registration Date: 03/21/17 Care time: The patient presented to the Emergency Department on the above date and was hospitalized for further evaluation of their emergent condition. - New Patient This patient is new to me today: Yes Date on this admission: 03/21/17 - Critical Care Critical Care patient: No
[2017-03-21 15:48] LABS: MCH 29.4 pg (25.7-33.7); MCHC 31.8 g/dl (32.0-35.9); MEAN CELL VOLUME 92.2 fl (80-96); MEAN PLT VOLUME 8.1 fl (7.5-11.1); PLATELET COUNT 191 K/MM3 (134-434); RDW 16.1 % (11.9-15.9); WHITE BLOOD COUNT 17.2 K/mm3 (4.0-10.0)
--- NOTE | 2017-03-21 15:58 | PN ---
Teaching Attending Note Name of Resident: Ramiro Harley (Nephrology) ATTENDING PHYSICIAN STATEMENT I saw and evaluated the patient. I reviewed the resident's note and discussed the case with the resident. I agree with the resident's findings and plan as documented. Nephrology Consult Please see consult filled out by resident. Pt is an 89 year old male with pmhx of CHF, COPD, CVA, CKD and hyperkalemia who presents with shortness of breath and wheezing. He was discharged from the hospital yesterday. He is now awake. He complains of shortness of breath. Current Medications Generic Name Dose Route Start Last Admin Trade Name Freq PRN Reason Stop Dose Admin Aclidinium [place] 1 puff 03/21/17 10:00 03/21/17 11:27 Tudorza - IH 1 puff BID CAREY Administration Albuterol/Ipratropium 1 amp 03/21/17 12:00 03/21/17 11:44 Duoneb - NEB 1 amp QIDR CAREY Administration Amlodipine Besylate 10 mg 03/21/17 10:00 03/21/17 11:25 Norvasc - PO 10 mg DAILY CAREY Administration Atorvastatin Calcium 10 mg 03/21/17 22:00 Lipitor - PO HS CAREY Cholecalciferol 1,000 unit 03/21/17 10:00 03/21/17 11:25 Vitamin D3 - PO 1,000 unit DAILY CAREY Administration Cholestyramine Resin 4 gm 03/21/17 05:58 03/21/17 11:27 Questran Light Packet - PO 4 gm BID CAREY Administration Guaifenesin 600 mg 03/21/17 10:00 03/21/17 11:56 Mucinex - PO 600 mg BID CAREY Administration Hydralazine HCl 10 mg 03/21/17 10:00 03/21/17 15:39 Apresoline - PO Not Given BID CAREY Pantoprazole Sodium 80 mg/ 100 mls @ 10 mls/hr 03/21/17 14:45 Sodium Chloride IVPB Q10H CAREY 8 MG/HR Metronidazole 100 mls @ 100 mls/hr 03/21/17 15:15 Flagyl 500mg Premixed Ivpb - IVPB Q8H-IV CAREY Meropenem 1 gm/ Dextrose 100 mls @ 100 mls/hr 03/21/17 15:15 IVPB Q8H-IV CAREY Protocol Levetiracetam 250 mg/ 750 mg 03/21/17 10:00 03/21/17 11:24 Levetiracetam 500 mg PO 750 mg BID CAREY Administration Loratadine 10 mg 03/21/17 10:00 03/21/17 11:25 Claritin - PO 10 mg DAILY CAREY Administration Methylprednisolone Sodium Succinate 40 mg 03/21/17 10:00 03/21/17 11:55 Solu-Medrol - IVPB 40 mg Q8H-IV CAREY Administration Mometasone Furoate 1 puff 03/21/17 22:00 Asmanex 220mcg - IH HS CAREY Montelukast Sodium 10 mg 03/21/17 22:00 Singulair - PO HS CAREY Multi-Ingredient Ointment 1 applic 03/21/17 14:00 03/21/17 15:40 Zinc Oxide TP Not Given TID CAREY Non-Formulary Medication 4 each 03/21/17 10:00 Lipase/Protease/Amylase [Pancrease Ec Capsule] PO DAILY CAREY Nystatin 1 applic 03/21/17 10:00 03/21/17 11:26 Nystop Powder - TP 1 applic BID CAREY Administration Oxymetazoline HCl 2 spray 03/20/17 23:00 03/21/17 11:28 Afrin - NS 2 spray BID PRN Administration NASAL CONGESTION Piperacillin Sod/Tazobactam Sod 3.375 gm 03/21/17 18:00 Zosyn 3.375gm Ivpb (Pre-Docked) IVPB Q8H-IV [facility] Protocol Solifenacin 10 mg 03/21/17 10:00 03/21/17 11:25 Vesicare - PO 10 mg DAILY CAREY Administration Tamsulosin HCl 0.4 mg 03/21/17 10:00 03/21/17 11:26 Flomax - PO 0.4 mg DAILY CAREY Administration Laboratory Tests 03/20/17 17:05 Sodium 140 Potassium 5.2 H D BUN 59 H Creatinine 1.1 cardio s1s2 pulm ronchi, tachypnea GI soft ext trace edema neuro awake Impression 1. YEISON has been resolving 2. Sepsis 3. hx CHF 4. COPD 5. CAD 6. hx CVA 7. anemia 8. hyperkalemia 9. GI bleed Plan - monitor renal function - low potassium diet - do not give kayexylate - get echo - will give a dose of lasix - transfer pt to ICU for closer monitoring - discussed with GI - monitor Hg - pulmonary/critical care eval
[2017-03-21] MEDS ORDERED: FUROSEMIDE 40 MG/4 ML INJECTABLE VIAL IVPUSH ONE (16:00)
[2017-03-21 16:13] LABS: ANION GAP 11 (8-16); CALCIUM 8.2 mg/dL (8.5-10.1); CO2 23 mmol/L (21-32); CREATININE 1.2 mg/dL (0.7-1.3)
[2017-03-21 16:18] LABS: GLUCOSE,RANDOM 315 mg/dL (74-106)
--- NOTE | 2017-03-21 16:28 | CONSULT ---
Consultation: REQUESTING PROVIDER: Dr. Acevedo CONSULT REQUEST: We have been asked to medically evaluate this patient for acute GI bleed. HISTORY OF PRESENT ILLNESS: 89 yo M with h/o COPD on home O2 3L at all time, HFpEF, CAD s/p stents, prostate CA and CVA transferred from med-surg to ICU for upper GI bleed and worsening shortness of breath. The patient was re-admitted through ED 2 days ago for sepsis 2/2 community acquired pneumonia in the setting of COPD exacerbation. He was hospitalized from 03/08 to 03/19 for the same diagnosis and discharged to SNF on predisone taper + azitromycin + ceftin. While he was at Dr. Farley's clinic yesterday, patient's found to have respiratory distress and was sent to the ED. Subsequently, he was admitted as inpatient and treated for pneumonia and COPD exacerbation with duoneb QID and solumedrol 40mg IV Q8H. At 5pm today, he's transferred to the unit for suspected acute upper GIB with HGB of 7.1 and acute hypoxemic respiratory distress. Patient denies fever, chills, chest pain, n/v. PMH: As above PSH: s/p 2 stents and endarterectomy; bladder surgery 2014 to remove cancerous polyps FH: Non contributory SH: Living situation: Came from SNF Smoking: heavy smoker quit 10-12 years ago Alcohol: 1-2 glasses of wine daily Drugs: Denies Allergies Allergy/AdvReac Type Severity Reaction Status Date / Time Anesthetics - Angle Type- Allergy Unknown Verified 03/20/17 17:27 Parabens [Anesthetics - Angle Type] latex Allergy Verified 03/20/17 17:27 Home Medications Medication Instructions Recorded Albuterol 0.083% Nebulizer Lela 1 neb NEB BID 09/30/14 [Ventolin 0.083% Nebulizer Soln -] Aspirin/Dipyridamole [Aggrenox -] 1 combo PO BID 09/30/14 Cholecalciferol (Vitamin D3) 1,000 unit PO DAILY 09/30/14 [Vitamin D3] Cholestyramine/Sucrose 4 gm PO BID PRN 09/30/14 [Cholestyramine Packet] Fluticasone Propionate [Flovent 110 mg IH BID 09/30/14 Hfa] Levetiracetam [Keppra -] 750 mg PO BID 09/30/14 Lipase/Protease/Amylase [Pancrease 4 each PO DAILY 09/30/14 EC Capsule] Loratadine 10 mg PO DAILY 09/30/14 Montelukast Na [Singulair -] 10 mg PO HS 09/30/14 Simvastatin [Zocor] 20 mg PO HS 09/30/14 Solifenacin Succinate [Vesicare] 10 mg PO DAILY 09/30/14 Tamsulosin HCl [Flomax -] 0.4 mg PO DAILY 09/30/14 Tiotropium [place] [Spiriva] 1 inh PO DAILY 09/30/14 Lipase/Protease/Amylase 2 each PO BIDWM #60 cap 10/06/14 [Pancrelipase 5,000 Dr Capsule -] Oxymetazoline 0.05% Nasal Soln 2 spray NS BID PRN #7 spraybtl 10/06/14 [Afrin -] Ranitidine [Zantac -] 150 mg PO BID #30 tablet 10/06/14 Tramadol HCl 50 mg PO Q6H #20 tablet MDD 200mg 01/08/17 Amlodipine Besylate [Norvasc -] 10 mg PO DAILY #30 tablet 03/19/17 Azithromycin 500 mg PO DAILY #5 tablet 03/19/17 Cefuroxime Axetil [Ceftin -] 500 mg PO BID #14 tablet 03/19/17 Hydralazine HCl 10 mg PO BID #60 tablet 03/19/17 Prednisone [Deltasone -] See Taper PO DAILY #30 tablet 03/19/17 Menthol/Zinc Oxide [Calmoseptine 71 gm TP QID 03/20/17 Ointment] Nystatin Powder [Nystop Topical 15 gm TP BID 03/20/17 Powder -] REVIEW OF SYSTEMS: CONSTITUTIONAL: generalized weakness, malaise, loss of appetite Absent: fever, chills, diaphoresis, weight change HEENT: Absent: rhinorrhea, nasal congestion, throat pain, throat swelling, difficulty swallowing, mouth swelling, ear pain, eye pain, visual changes CARDIOVASCULAR: Absent: chest pain, syncope, palpitations, irregular heart rate, lightheadedness , peripheral edema RESPIRATORY: cough, shortness of breath, dyspnea with exertion, orthopnea, wheezing Absent: stridor, hemoptysis GASTROINTESTINAL: abdominal pain Absent: , abdominal distension, nausea, vomiting, diarrhea, constipation, melena , hematochezia GENITOURINARY: Absent: dysuria, frequency, urgency, hesitancy, hematuria, flank pain, genital pain MUSCULOSKELETAL: Absent: myalgia, arthralgia, joint swelling, back pain, neck pain SKIN: Absent: rash, itching, pallor HEMATOLOGIC/IMMUNOLOGIC: Absent: easy bleeding, easy bruising, lymphadenopathy, frequent infections ENDOCRINE: Absent: unexplained weight gain, unexplained weight loss, heat intolerance, cold intolerance NEUROLOGIC: Absent: headache, focal weakness or paresthesias, dizziness, unsteady gait, seizure, mental status changes, bladder or bowel incontinence PSYCHIATRIC: Absent: anxiety, depression, suicidal or homicidal ideation, hallucinations. PHYSICAL EXAMINATION Last Vital Signs Temp Pulse Resp BP Pulse Ox 98.4 F 87 38 H 136/46 98 03/21/17 16:00 03/21/17 16:00 03/21/17 16:00 03/21/17 16:00 03/21/17 16:00 GENERAL: Awake, alert, oriented to place only, appears weak, lethargic, able to answer questions and follow commands, in moderate distress on NC 3L HEAD: AC. NT EYES: sclera anicteric, conjunctiva clear NECK: No JVD LUNGS: Poor air entry with bilateral expiratory wheezing and fine crackles at bases. +accessory muscle use. HEART: obscured heart sounds ABDOMEN: Soft, non-distended, normoactive bs, diffusely tender across all quadrants on deep palpations, no guarding, subjective rebound tenderness, dark stool on diaper EXTREMITIES: 2+ pulses, warm, No peripheral edema. SKIN: Warm, dry, normal turgor, no rashes or lesions noted. CBCD WBC 17.2 K/mm3 (4.0-10.0) H 03/21/17 15:00 RBC 2.43 M/mm3 (4.00-5.60) L D 03/21/17 15:00 Hgb 7.1 GM/dL (11.7-16.9) L D 03/21/17 15:00 Hct 22.4 % (35.4-49) L D 03/21/17 15:00 MCV 92.2 fl (80-96) 03/21/17 15:00 MCHC 31.8 g/dl (32.0-35.9) L 03/21/17 15:00 RDW 16.1 % (11.9-15.9) H 03/21/17 15:00 Plt Count 191 K/MM3 (134-434) 03/21/17 15:00 MPV 8.1 fl (7.5-11.1) 03/21/17 15:00 CMP Sodium 144 mmol/L (136-145) 03/21/17 15:00 Potassium 5.0 mmol/L (3.5-5.1) 03/21/17 15:00 Chloride 110 mmol/L (98-107) H 03/21/17 15:00 Carbon Dioxide 23 mmol/L (21-32) 03/21/17 15:00 Anion Gap 11 (8-16) 03/21/17 15:00 BUN 58 mg/dL (7-18) H 03/21/17 15:00 Creatinine 1.2 mg/dL (0.7-1.3) 03/21/17 15:00 Creat Clearance w eGFR > 60 (>60) 03/20/17 17:05 Calcium 8.2 mg/dL (8.5-10.1) L 03/21/17 15:00 Total Bilirubin 0.6 mg/dL (0.2-1.0) 03/20/17 17:05 AST 15 U/L (15-37) D 03/20/17 17:05 ALT 26 U/L (12-78) 03/20/17 17:05 Alkaline Phosphatase 53 U/L (45-117) 03/20/17 17:05 Total Protein 5.8 g/dl (6.4-8.2) L 03/20/17 17:05 Albumin 2.7 g/dl (3.4-5.0) L 03/20/17 17:05 Urine Test Results Urine Color Lt. yellow 03/20/17 18:11 Urine Appearance Clear 03/20/17 18:11 Urine pH 6.5 (5.0-8.0) D 03/20/17 18:11 Ur Specific [place] 1.020 (1.005-1.025) 03/20/17 18:11 Urine Protein Negative (NEGATIVE) 03/20/17 18:11 Urine Glucose (UA) Negative (NEGATIVE) 03/20/17 18:11 Urine Ketones Negative (NEGATIVE) 03/20/17 18:11 Urine Blood 1+ (NEGATIVE) H 03/20/17 18:11 Urine Nitrite Negative (NEGATIVE) 03/20/17 18:11 Urine Bilirubin Negative (NEGATIVE) 03/20/17 18:11 Ur Leukocyte Esterase Trace (NEGATIVE) H 03/20/17 18:11 Urine RBC 5 /hpf (0-3) 03/20/17 18:11 Urine WBC 9 /hpf (3-5) 03/20/17 18:11 Ur Epithelial Cells Rare /hpf (FEW) 03/20/17 18:11 Urine Mucus Rare 03/20/17 18:11 ABG Results ABG pH 7.45 (7.35-7.45) 03/21/17 16:35 ABG pCO2 at Pt Temp 32.1 mmHg (35-45) L 03/21/17 16:35 ABG pO2 at Pt Temp 112.0 mmHg (68-100) H D 03/21/17 16:35 ABG HCO3 21.7 meq/L (22-26) L 03/21/17 16:35 ABG O2 Sat (Measured) 99.1 % (90-98.9) H 03/21/17 16:35 ABG O2 Content 9.7 % vol (15-22) L* 03/21/17 16:35 ABG Base Excess -1.6 meq/l (-2-2) 03/21/17 16:35 Active Medications Generic Name Dose Route Start Last Admin Trade Name Aaronq PRN Reason Stop Dose Admin Aclidinium [place] 1 puff 03/21/17 10:00 03/21/17 11:27 Tudorza - IH 1 puff BID CAREY Administration Albuterol/Ipratropium 1 amp 03/21/17 12:00 03/21/17 11:44 Duoneb - NEB 1 amp QIDR CAREY Administration Amlodipine Besylate 10 mg 03/21/17 10:00 03/21/17 11:25 Norvasc - PO 10 mg DAILY CAREY Administration Atorvastatin Calcium 10 mg 03/21/17 22:00 Lipitor - PO HS [facility] Cholecalciferol 1,000 unit 03/21/17 10:00 03/21/17 11:25 Vitamin D3 - PO 1,000 unit DAILY CAREY Administration Cholestyramine Resin 4 gm 03/21/17 05:58 03/21/17 11:27 Questran Light Packet - PO 4 gm BID CAREY Administration Furosemide 20 mg 03/21/17 16:00 Lasix Injection - IVPUSH 03/21/17 16:01 ONCE ONE Guaifenesin 600 mg 03/21/17 10:00 03/21/17 11:56 Mucinex - PO 600 mg BID CAREY Administration Hydralazine HCl 10 mg 03/21/17 10:00 03/21/17 15:39 Apresoline - PO Not Given BID CAREY Pantoprazole Sodium 80 mg/ 100 mls @ 10 mls/hr 03/21/17 14:45 Sodium Chloride IVPB Q10H CAREY 8 MG/HR Metronidazole 100 mls @ 100 mls/hr 03/21/17 15:15 Flagyl 500mg Premixed Ivpb - IVPB Q8H-IV CAREY Meropenem 1 gm/ Dextrose 100 mls @ 100 mls/hr 03/21/17 15:15 IVPB Q8H-IV CAREY Protocol Levetiracetam 250 mg/ 750 mg 03/21/17 10:00 03/21/17 11:24 Levetiracetam 500 mg PO 750 mg BID CAREY Administration Loratadine 10 mg 03/21/17 10:00 03/21/17 11:25 Claritin - PO 10 mg DAILY CAREY Administration Methylprednisolone Sodium Succinate 40 mg 03/21/17 10:00 03/21/17 11:55 Solu-Medrol - IVPB 40 mg Q8H-IV CAREY Administration Mometasone Furoate 1 puff 03/21/17 22:00 Asmanex 220mcg - IH HS CAREY Montelukast Sodium 10 mg 03/21/17 22:00 Singulair - PO HS CAREY Multi-Ingredient Ointment 1 applic 03/21/17 14:00 03/21/17 15:40 Zinc Oxide TP Not Given TID CAREY Non-Formulary Medication 4 each 03/21/17 10:00 Lipase/Protease/Amylase [Pancrease Ec Capsule] PO DAILY CAREY Nystatin 1 applic 03/21/17 10:00 03/21/17 11:26 Nystop Powder - TP 1 applic BID CAREY Administration Oxymetazoline HCl 2 spray 03/20/17 23:00 03/21/17 11:28 Afrin - NS 2 spray BID PRN Administration NASAL CONGESTION Piperacillin Sod/Tazobactam Sod 3.375 gm 03/21/17 18:00 Zosyn 3.375gm Ivpb (Pre-Docked) IVPB Q8H-IV CAREY Protocol Solifenacin 10 mg 03/21/17 10:00 03/21/17 11:25 Vesicare - PO 10 mg DAILY CAREY Administration Tamsulosin HCl 0.4 mg 03/21/17 10:00 03/21/17 11:26 Flomax - PO 0.4 mg DAILY CAREY Administration Microbiology 03/20/17 17:05 Blood Culture - Preliminary Blood - Peripheral Venous NO GROWTH OBTAINED AFTER 24 HOURS, INCUBATION TO CONTINUE FOR 4 DAYS. 03/20/17 17:05 Blood Culture - Preliminary Blood - Peripheral Venous NO GROWTH OBTAINED AFTER 24 HOURS, INCUBATION TO CONTINUE FOR 4 DAYS. 03/21/17 09:55 Clostridium difficile Antigen (LAMONTE) - Final Stool Clostridium difficile Toxin Assay - Final IMAGING CT chest on 03/21: dilated ascending aorta (4.4cm), chronic interstitial disease in RUL, probably pneumonic infiltrates L > R, fatty infiltrate in pancreas, duodenitis CXR on 03/20: possible pericardial effusion ASSESSMENT/PLAN: 89 yo M with h/o COPD on home O2 3L at all time, HFpEF, CAD s/p stents, prostate CA and CVA transferred from med-surg to ICU for upper GI bleed and worsening shortness of breath. GI: Upper/Lower GI bleed - Diverticulosis vs. Duodenal ulcer - 2 peripheral IV 20G established - 2 PRBC + 20mg lasix IVPUSH in between * recheck CBC after 2nd bag * transfusion threshold < 9 - On protonix gtt - Aggrenox held - EGD when medically stable - GI onboard ID: Sepsis 2/2 pneumonia - Improving - WBC trending down, afrebile, normal lactate - Cultures pending - Started on meropenem 1g IV Q8H (day 1) and flagyl 500mg IV Q8H (day 1) Pulm: Acute hypoxemic respiratory distress - 2/2 COPD exacerbation, in the setting of PNA - Cont. O2 maintain sat between 88 to 92% * BiPAP PRN - Cont. solumedrol 40mg IV BID - Cont. duoneb QID CAREY - Cont. asmanex and turorza and afrin - Pending ECHO to r/o effusion Cardiac: CAD s/p stents; HTN - Cont. all home BP meds - Hold aggrenox - Not on BB due to conduction abnormality Renal: Hyperkalemia - Resolved - YEISON in previous admission - Cont. to monitor Cr - IVF if necessary FEN - Euvolumic, no IVF indicated - Cont. to monitor K+ - NPO Prophylaxis - DVT: SCDs - GI: on protonix gtt Dispo - Cont. to monitor in ICU MANUELA Paul PGY-2 Pager: [phone] Visit type - Emergency Visit Emergency Visit: No - New Patient This patient is new to me today: Yes Date on this admission: 03/21/17 - Critical Care Critical Care patient: Yes Total Critical Care Time (in minutes): 45 Critical Care Statement: The care of this patient involved high complexity decision making to prevent further life threatening deterioration of the patient 's condition and/or to evalute & treat vital organ system(s) failure or risk of failure.
--- NOTE | 2017-03-21 16:29 | PN ---
Teaching Attending Note Name of Resident: Irwin Dhillon ATTENDING PHYSICIAN STATEMENT I saw and evaluated the patient. I reviewed the resident's note and discussed the case with the resident. I agree with the resident's findings and plan as documented. PULMONARY IMP ACUTE ON CHRONIC HYPOXEMIC RESPIRATORY FAILURE HCAP COPD O2 DEPENDENT ? CHF AZOTEMIA LYMPHOMA PERICARDIAL EFFUSION GI BLEED ABDOMINAL PAIN PLAN IV ANTIBIOTICS INHALED BRONCHODILATORS O2 NIPPV IF DEVELOPES INCREASED RESP DISTRESS IVF ECHO F/U CHEST X-RAY CULTURES MONITOR LYTES.CBC TRANSFUSE NEEDED DR CHILD Problem List - Problems (1) COPD exacerbation Code(s): J44.1 - CHRONIC OBSTRUCTIVE PULMONARY DISEASE W (ACUTE) EXACERBATION (2) Duodenitis Code(s): K29.80 - DUODENITIS WITHOUT BLEEDING (3) GI bleed Code(s): K92.2 - GASTROINTESTINAL HEMORRHAGE, UNSPECIFIED (4) Peripheral arterial disease Code(s): I73.9 - PERIPHERAL VASCULAR DISEASE, UNSPECIFIED (5) Pneumonia Code(s): J18.9 - PNEUMONIA, UNSPECIFIED ORGANISM Qualifiers: Pneumonia type: due to unspecified organism Laterality: bilateral Lung location: lower lobe of lung Qualified Code(s): J18.9 - Pneumonia, unspecified organism (6) Respiratory distress Code(s): R06.00 - DYSPNEA, UNSPECIFIED (7) YEISON (acute kidney injury) Code(s): N17.9 - ACUTE KIDNEY FAILURE, UNSPECIFIED (8) CAD (coronary artery disease) Code(s): I25.10 - ATHSCL HEART DISEASE OF [place] CORONARY ARTERY W/O ANG PCTRS Qualifiers: Coronary Disease-Associated Artery/Lesion type: [place] artery [place] vs. transplanted heart: [place] heart Associated angina: angina presence unspecified Qualified Code(s): I25.10 - Atherosclerotic heart disease of [place] coronary artery without angina pectoris (9) CHF (congestive heart failure) Code(s): I50.9 - HEART FAILURE, UNSPECIFIED Qualifiers: Congestive heart failure type: unspecified congestive heart failure type Congestive heart failure chronicity: unspecified congestive heart failure chronicity Qualified Code(s): I50.9 - Heart failure, unspecified (10) CVA (cerebral vascular accident) Code(s): I63.9 - CEREBRAL INFARCTION, UNSPECIFIED Qualifiers: CVA mechanism: unspecified Qualified Code(s): I63.9 - Cerebral infarction, unspecified (11) Acute and chronic respiratory failure with hypoxia Code(s): J96.21 - ACUTE AND CHRONIC RESPIRATORY FAILURE WITH HYPOXIA
[2017-03-21 16:40] LABS: ARTERIAL BLD GAS O2 SATURATION 99.1 % (90-98.9); ARTERIAL BLOOD GAS BASE EXCESS -1.6 meq/l (-2-2); ARTERIAL BLOOD GAS HCO3 21.7 meq/L (22-26); ARTERIAL BLOOD GAS pH 7.45 (7.35-7.45)
[2017-03-21] MEDS: PANTOPRAZOLE SODIUM 80 MG in SODIUM CHLORIDE 100 ML IVPB SCH (16:40)
[2017-03-21 16:42] LABS: ALLENS TEST POSITIVE; ART PUNCT SITE RIGHT RADIAL; LPM/O2% 50; PT. ON O2? YES; TYPE OF O2 VENTI MASK
[2017-03-21] MEDS: METRONIDAZOLE 500 MG PREMIXED 100 ML IVPB SCH ×2 (16:51→17:29)
--- NOTE | 2017-03-21 17:09 | CON.GI ---
Consult Consult Specialty:: Gastroenterology - History of Present Illness Chief Complaint: shortness of breath maroon stool History of Present Illness: this is an 89-year-old male who I saw on his last admission who was readmitted today with progressive shortness of breath nausea vomiting and diarrhea. He does complain of a little bit of abdominal pain. His last hospitalization was for severe bilateral pneumonia this was exacerbated by progressive dysphasia which are I was called on to evaluate. At that point Mr. Oropeza was to much in respiratory distress to do any endoscopic evaluation. An esophagram was performed which revealed a small hiatal hernia and some mild esophageal dysmotility. He was complaining of progressive regurgitation and dysphasia. During that hospitalization he was found that he was aspirating. He was discharged on a dysphagia type diet. It was suggested that he continue a proton pump inhibitor as he was on (Aggrenox) and steroids. He was discharged on prednisone and ranitidine in addition to Aggrenox. He is now back in the hospital with progressive shortness of breath nausea vomiting and diarrhea. He is now having maroon stools and a worsening anemia. He is extremely short of breath. He has trouble carrying on a conversation during this interview. He is is dyspneic at rest. She has not had labs for over 24 hours. - History Source History Provided By: Patient Limitations to Obtaining History: Clinical Condition - Past Medical History BIOCHEMISTRY SPECIALIST: Yes: CVA, Dementia, TIA Cardio/Vascular: Yes: CAD, HTN Pulmonary: Yes: COPD Gastrointestinal: Yes: Other (HX OF PROGRESSIVE REGURGITATION FOR YEARS, PLACED ON OMEPRAZOLE BY PMD NO WORK UP EVER DONE DESPITE SYMPTOMS) Renal/: Yes: Cancer (prostate) - Past Surgical History Past Surgical History: Yes: Carotid Endarterectomy (carotid "stent" about 2 years go), Stent (carotid; denies cardiac stent) - Alcohol/Substance Use Hx Alcohol Use: No - Smoking History Smoking history: Former smoker Have you smoked in the past 12 months: No Aproximately how many cigarettes per day: 0 If you are a former smoker, when did you quit?: over 20 years go - Social History Usual Living Arrangement: With Spouse ADL: Family Assistance History of Recent Travel: No Home Medications - Allergies Allergies/Adverse Reactions: Allergies Allergy/AdvReac Type Severity Reaction Status Date / Time Anesthetics - Angle Type- Allergy Unknown Verified 03/20/17 17:27 Parabens [Anesthetics - Angle Type] latex Allergy Verified 03/20/17 17:27 - Home Medications Home Medications: Ambulatory Orders Albuterol 0.083% Nebulizer Lela [Ventolin 0.083% Nebulizer Soln -] 1 neb NEB BID 09/30/14 Aspirin/Dipyridamole [Aggrenox -] 1 combo PO BID 09/30/14 Cholecalciferol (Vitamin D3) [Vitamin D3] 1,000 unit PO DAILY 09/30/14 Cholestyramine/Sucrose [Cholestyramine Packet] 4 gm PO BID PRN 09/30/14 Fluticasone Propionate [Flovent Hfa] 110 mg IH BID 09/30/14 Levetiracetam [Keppra -] 750 mg PO BID 09/30/14 Lipase/Protease/Amylase [Pancrease EC Capsule] 4 each PO DAILY 09/30/14 Loratadine 10 mg PO DAILY 09/30/14 Montelukast Na [Singulair -] 10 mg PO HS 09/30/14 Simvastatin [Zocor] 20 mg PO HS 09/30/14 Solifenacin Succinate [Vesicare] 10 mg PO DAILY 09/30/14 Tamsulosin HCl [Flomax -] 0.4 mg PO DAILY 09/30/14 Tiotropium [place] [Spiriva] 1 inh PO DAILY 09/30/14 Lipase/Protease/Amylase [Pancrelipase 5,000 Dr Capsule -] 2 each PO BIDWM #60 cap 10/06/14 Oxymetazoline 0.05% Nasal Soln [Afrin -] 2 spray NS BID PRN #7 spraybtl Ranitidine [Zantac -] 150 mg PO BID #30 tablet 10/06/14 Tramadol HCl 50 mg PO Q6H #20 tablet MDD 200mg 01/08/17 Amlodipine Besylate [Norvasc -] 10 mg PO DAILY #30 tablet 03/19/17 Azithromycin 500 mg PO DAILY #5 tablet 03/19/17 Cefuroxime Axetil [Ceftin -] 500 mg PO BID #14 tablet 03/19/17 Hydralazine HCl 10 mg PO BID #60 tablet 03/19/17 Prednisone [Deltasone -] See Taper PO DAILY #30 tablet 03/19/17 Menthol/Zinc Oxide [Calmoseptine Ointment] 71 gm TP QID 03/20/17 Nystatin Powder [Nystop Topical Powder -] 15 gm TP BID 03/20/17 Review of Systems Unable to obtain ROS, reason: Clinical condition Physical Exam-GI Vital Signs: Vital Signs Temperature 98.6 F 03/21/17 14:17 Pulse Rate 84 03/21/17 14:17 Respiratory Rate 21 03/21/17 14:17 Blood Pressure 150/59 03/21/17 14:17 O2 Sat by Pulse Oximetry (%) 93 L 03/21/17 10:00 Constitutional: Yes: Anxious, Mild Distress Eyes: Yes: Conjunctiva Clear HENT: Yes: Atraumatic Neck: Yes: Supple Cardiovascular: Yes: Pulse Irregular Respiratory: Yes: Rales, Rhonchi, SOB ...Auscultate: Yes: Normoactive Bowel Sounds ...Palpate: Yes: Soft ...Rectal Exam: Yes: Guaiac Positive, Other ( dark maroon loose stools) Extremities: Yes: Cool Edema: Yes Labs: CBC, BMP 03/21/17 15:00 03/21/17 15:00 INR, PTT INR 1.06 (0.82-1.09) 03/20/17 17:05 Laboratory Tests 03/20/17 03/20/17 03/20/17 17:05 17:05 17:05 WBC 18.8 H RBC 3.28 L Hgb 9.8 L Hct 29.9 L MCV 91.1 MCH 29.8 MCHC 32.8 RDW 16.0 H Plt Count 186 D MPV 8.7 Neutrophils % 96.0 H Lymphocytes % 1.7 L D Monocytes % 2.0 L Eosinophils % 0.1 Basophils % 0.2 INR 1.06 Sodium 140 Potassium 5.2 H D Chloride 107 Carbon Dioxide 26 Anion Gap 7 L BUN 59 H Creatinine 1.1 Creat Clearance w eGFR > 60 Random Glucose 174 H D Lactic Acid Calcium 8.5 Total Bilirubin 0.6 AST 15 D ALT 26 Alkaline Phosphatase 53 Creatine Kinase 62 Troponin I 0.05 D Total Protein 5.8 L Albumin 2.7 L 03/20/17 17:05 WBC RBC Hgb Hct MCV MCH MCHC RDW Plt Count MPV Neutrophils % Lymphocytes % Monocytes % Eosinophils % Basophils % INR Sodium Potassium Chloride Carbon Dioxide Anion Gap BUN Creatinine Creat Clearance w eGFR Random Glucose Lactic Acid 1.3 Calcium Total Bilirubin AST ALT Alkaline Phosphatase Creatine Kinase Troponin I Total Protein Albumin Imaging - Results Cat Scan: Image Reviewed ( bilateral pneumonia and possible duodenitis) Problem List - Problems (1) GI bleed Assessment/Plan: Both myself and Dr. Avelar have seen the patient today and agree patient be should be transferred to the intensive care unit. I believe is having GI bleed from either an upper source or or diverticulosis. If the patient remains on prednisone and an NSAID prophylactic treatment with an H2 genna is not adequate prophylaxis. Patient needs to be on a proton pump inhibitor alone or proton pump inhibitor plus misprostil. New to thank you Patient is too unstable respiratory wiseman perform any endoscopic procedure at this current time. His vital signs are stable however we do not know what his latest hemoglobin is as he has not had any repeat labs in over 24 hours. I have started him on a Protonix drip. I sent off a repeat CBC and a basic metabolic profile. If the CBC hemoglobin is less than 8 I would start transfusing packed red blood cells today. I stopped the Aggrenox for at least 24 hours. His respiratory status needs to improve before any endoscopic upper or lower evaluation is performed. I discussed these plans with the floor nurse who understands the plan and is calling to arrange transfer to the ICU.. Dr. Collins will be covering today after 5:00 till Friday morning at 8 AM. Code(s): K92.2 - GASTROINTESTINAL HEMORRHAGE, UNSPECIFIED (2) Esophageal dysmotility Code(s): K22.4 - DYSKINESIA OF ESOPHAGUS (3) COPD exacerbation Code(s): J44.1 - CHRONIC OBSTRUCTIVE PULMONARY DISEASE W (ACUTE) EXACERBATION (4) Duodenitis Code(s): K29.80 - DUODENITIS WITHOUT BLEEDING (5) Peripheral arterial disease Code(s): I73.9 - PERIPHERAL VASCULAR DISEASE, UNSPECIFIED (6) Pneumonia Code(s): J18.9 - PNEUMONIA, UNSPECIFIED ORGANISM Qualifiers: Pneumonia type: due to unspecified organism Laterality: bilateral Lung location: lower lobe of lung Qualified Code(s): J18.9 - Pneumonia, unspecified organism (7) Respiratory distress Code(s): R06.00 - DYSPNEA, UNSPECIFIED (8) Thoracic aneurysm without mention of rupture Code(s): I71.2 - THORACIC AORTIC ANEURYSM, WITHOUT RUPTURE Qualifiers: Presence of rupture: without rupture Qualified Code(s): I71.2 - Thoracic aortic aneurysm, without rupture (9) Acute respiratory failure Code(s): J96.00 - ACUTE RESPIRATORY FAILURE, UNSP W HYPOXIA OR HYPERCAPNIA Qualifiers: Respiratory failure complication: hypoxia Qualified Code(s): J96.01 - Acute respiratory failure with hypoxia (10) CHF (congestive heart failure) Code(s): I50.9 - HEART FAILURE, UNSPECIFIED Qualifiers: Congestive heart failure type: unspecified congestive heart failure type Congestive heart failure chronicity: unspecified congestive heart failure chronicity Qualified Code(s): I50.9 - Heart failure, unspecified (11) CVA (cerebral vascular accident) Code(s): I63.9 - CEREBRAL INFARCTION, UNSPECIFIED Qualifiers: CVA mechanism: unspecified Qualified Code(s): I63.9 - Cerebral infarction, unspecified
[2017-03-21] MEDS ORDERED: PIPERACILLIN/TAZOB 3.375 GM/50 ML PRE-DOCKED IVPB SCH (18:00)
[2017-03-21] MEDS: MEROPENEM 1 GM in DEXTROSE 5%-WATER - 100 ML IVPB SCH ×2 (18:14→18:30)
[2017-03-21] MEDS: MOMETASONE FUROATE 220 MCG/IH INHALER IH SCH (21:33)
[2017-03-21] MEDS: MUPIROCIN 2% TOPICAL OINTMENT FOR DECOLONIZATION NS SCH (21:39)
[2017-03-21] MEDS: CHLORHEXIDINE GLUCONATE 4% CLEANSER FOR DECOLONIZATION TP SCH (21:41)
[2017-03-21] MEDS ORDERED: FUROSEMIDE 40 MG/4 ML INJECTABLE VIAL ONE (21:53)
[2017-03-21] MEDS: ATORVASTATIN CA 10 MG TABLET (FP) PO SCH (21:56)
[2017-03-21] MEDS: MONTELUKAST NA 10 MG TABLET PO SCH (21:56)
[2017-03-22] MEDS: PANTOPRAZOLE SODIUM 80 MG in SODIUM CHLORIDE 100 ML IVPB SCH ×3 (01:04→22:17)
[2017-03-22] MEDS: methylPREDNISolone NA SUCC 40 MG/1 ML VIAL IVPB SCH ×3 (01:05→17:16)
[2017-03-22] MEDS: MEROPENEM 1 GM in DEXTROSE 5%-WATER - 100 ML IVPB SCH ×3 (01:05→18:31)
[2017-03-22] MEDS: METRONIDAZOLE 500 MG PREMIXED 100 ML IVPB SCH ×3 (01:05→17:16)
[2017-03-22 05:52] LABS: BASOPHIL 0.2 % (0-2.0); EOSINOPHIL 0.1 % (0-4.5); MCH 29.4 pg (25.7-33.7); MEAN CELL VOLUME 88.9 fl (80-96); NEUTROPHILS 97.6 % (42.8-82.8); PLATELET COUNT 170 K/MM3 (134-434); RDW 16.2 % (11.9-15.9); WHITE BLOOD COUNT 14.3 K/mm3 (4.0-10.0)
[2017-03-22] MEDS: ZINC OXIDE 20% TOPICAL OINTMENT 30 GM TUBE TP SCH ×3 (06:00→22:13)
[2017-03-22] MEDS: ALBUTEROL SO4 2.5/IPRATROPIUM 0.5 INH SOL 3 ML VIAL.NEB. NEB SCH ×4 (06:00→23:30)
[2017-03-22 06:13] LABS: ALBUMIN 2.5 g/dl (3.4-5.0); ALK PHOS 45 U/L (45-117); ANION GAP 11 (8-16); BILIRUBIN,TOTAL 0.8 mg/dL (0.2-1.0); CALCIUM 8.1 mg/dL (8.5-10.1); CO2 25 mmol/L (21-32); CREATININE 1.2 mg/dL (0.7-1.3); GLUCOSE,RANDOM 200 mg/dL (74-106); MAGNESIUM 2.7 mg/dL (1.8-2.4); PHOSPHOROUS 3.3 mg/dL (2.5-4.9); SGOT/AST 8 U/L (15-37); SGPT/ALT 20 U/L (12-78); TOT PROT 5.1 g/dl (6.4-8.2)
[2017-03-22 06:14] LABS: INR 1.03 (0.82-1.09); PROTHROMBIN TIME (PATIENT) 11.3 SEC (9.98-11.88)
[2017-03-22 06:17] LABS: ACTIVATED PTT 25.9 SECONDS (26.9-34.4)
--- NOTE | 2017-03-22 09:31 | PN ---
Progress Note (short form) - Note Progress Note: RENAL Pt is awake and alert he is now in the ICU has a facemask on and is saturating at 98 percent Last Vital Signs Temp Pulse Resp BP Pulse Ox 97.9 F 74 27 H 155/53 98 03/22/17 06:00 03/22/17 06:00 03/22/17 06:00 03/22/17 06:00 03/21/17 21:20 lungs bilat rhonchi cvs s1s2 distant abd soft ext no edema neuro a+ox3 urinates in diaper Current Medications Generic Name Dose Route Start Last Admin Trade Name Freq PRN Reason Stop Dose Admin Acetaminophen 650 mg 03/21/17 17:00 Tylenol - PO Q4H PRN FEVER OR PAIN Aclidinium [place] 1 puff 03/21/17 10:00 03/21/17 21:34 Tudorza - IH 1 puff BID C[facility] Administration Albuterol/Ipratropium 1 amp 03/21/17 12:00 03/22/17 06:00 Duoneb - NEB 1 amp QIDR [facility] Administration Amlodipine Besylate 10 mg 03/21/17 10:00 03/21/17 11:25 Norvasc - PO 10 mg DAILY [facility] Administration Atorvastatin Calcium 10 mg 03/21/17 22:00 03/21/17 21:56 Lipitor - PO 10 mg HS C[facility]Y Administration Chlorhexidine Gluconate 1 applic 03/21/17 22:00 03/21/17 21:41 Hibiclens For Decolonization - TP 1 applic HS [facility]Y Administration Cholecalciferol 1,000 unit 03/21/17 10:00 03/21/17 11:25 Vitamin D3 - PO 1,000 unit DAILY [facility] Administration Cholestyramine Resin 4 gm 03/21/17 05:58 03/21/17 22:30 Questran Light Packet - PO 4 gm BID [facility] Administration Guaifenesin 600 mg 03/21/17 10:00 03/21/17 21:29 Mucinex - PO 600 mg BID [facility] Administration Hydralazine HCl 10 mg 03/21/17 10:00 03/21/17 21:29 Apresoline - PO 10 mg BID [facility] Administration Pantoprazole Sodium 80 mg/ 100 mls @ 10 mls/hr 03/21/17 14:45 03/22/17 01:04 Sodium Chloride IVPB 10 mls/hr Q10H [facility] Administration 8 MG/HR Metronidazole 100 mls @ 100 mls/hr 03/21/17 15:15 03/22/17 01:05 Flagyl 500mg Premixed Ivpb - IVPB 100 mls/hr Q8H-IV [facility] Administration Meropenem 1 gm/ Dextrose 100 mls @ 100 mls/hr 03/21/17 15:15 03/22/17 01:05 IVPB 100 mls/hr Q8H-IV [facility] Administration Protocol Levetiracetam 250 mg/ 750 mg 03/21/17 10:00 03/21/17 22:30 Levetiracetam 500 mg PO 750 mg BID [facility] Administration Loratadine 10 mg 03/21/17 10:00 03/21/17 11:25 Claritin - PO 10 mg DAILY [facility] Administration Methylprednisolone Sodium Succinate 40 mg 03/21/17 10:00 03/22/17 01:05 Solu-Medrol - IVPB 40 mg Q8H-IV [facility] Administration Mometasone Furoate 1 puff 03/21/17 22:00 03/21/17 21:33 Asmanex 220mcg - IH 1 puff HS [facility] Administration Montelukast Sodium 10 mg 03/21/17 22:00 03/21/17 21:56 Singulair - PO 10 mg HS [facility] Administration Multi-Ingredient Ointment 1 applic 03/21/17 14:00 03/22/17 06:00 Zinc Oxide TP 1 applic TID [facility] Administration Mupirocin 1 applic 03/21/17 22:00 03/21/17 21:39 Bactroban Ointment (For Decolonization) - NS 03/26/17 21:59 1 applic BID [facility] Administration Non-Formulary Medication 4 each 03/21/17 10:00 Lipase/Protease/Amylase [Pancrease Ec Capsule] PO DAILY [facility] Nystatin 1 applic 03/21/17 10:00 03/21/17 21:33 Nystop Powder - TP 1 applic BID [facility] Administration Oxymetazoline HCl 2 spray 03/20/17 23:00 03/21/17 11:28 Afrin - NS 2 spray BID PRN Administration NASAL CONGESTION Piperacillin Sod/Tazobactam Sod 3.375 gm 03/21/17 18:00 Zosyn 3.375gm Ivpb (Pre-Docked) IVPB Q8H-IV [facility] Protocol Solifenacin 10 mg 03/21/17 10:00 03/21/17 11:25 Vesicare - PO 10 mg DAILY [facility] Administration Tamsulosin HCl 0.4 mg 03/21/17 10:00 03/21/17 11:26 Flomax - PO 0.4 mg DAILY [facility] Administration CBC, BMP 03/22/17 05:15 03/22/17 05:15 Impression 1. YEISON has been resolving 2. Sepsis 3. hx CHF 4. COPD 5. CAD 6. hx CVA 7. anemia 8. hyperkalemia resolved 9. GI bleed 10. thoracic aortic aneurysm Plan -?need for AFRIN since its an alpha agonist -monitor renal function and hemoglobin -sodium is rising so probably does not need diuretics MV
--- NOTE | 2017-03-22 09:33 | PN ---
Progress Note (short form) - Note Progress Note: PULMONARY/CCM Pt seen and examined in the ICU. On 40% ventimask, reports shortness of breath but does not like mask. +cough with thick sputum. No fevers recorded. Denies abdominal pain. Last Vital Signs Temp Pulse Resp BP Pulse Ox 97.9 F 74 27 H 155/53 98 03/22/17 06:00 03/22/17 06:00 03/22/17 06:00 03/22/17 06:00 03/21/17 21:20 Intake & Output 03/19/17 03/20/17 03/21/17 03/22/17 23:59 23:59 23:59 23:59 Intake Total 0 760 582 Balance 0 760 582 Weight 208 lb Gen: tachypneic at rest Heart: RRR Lung: bilateral rhonchi Abd: soft, nontender Ext: no edema CBC, BMP 03/22/17 05:15 03/22/17 05:15 Active Medications Acetaminophen (Tylenol -) 650 mg PO Q4H PRN PRN Reason: FEVER OR PAIN Aclidinium [place] ([place]udorza -) 1 puff IH BID [facility] Last Admin: 03/21/17 21:34 Dose: 1 puff Albuterol/Ipratropium (Duoneb -) 1 amp NEB QIDR [facility] Last Admin: 03/22/17 06:00 Dose: 1 amp Amlodipine Besylate (Norvasc -) 10 mg PO DAILY [facility] Last Admin: 03/21/17 11:25 Dose: 10 mg Atorvastatin Calcium (Lipitor -) [address] [facility] Last Admin: 03/21/17 21:56 Dose: 10 mg Chlorhexidine Gluconate (Hibiclens For Decolonization -) [address] [facility] Last Admin: 03/21/17 21:41 Dose: 1 applic Cholecalciferol (Vitamin D3 -) 1,000 unit PO DAILY [facility] Last Admin: 03/21/17 11:25 Dose: 1,000 unit Cholestyramine Resin (Questran Light Packet -) 4 gm PO BID [facility] Last Admin: 03/21/17 22:30 Dose: 4 gm Guaifenesin (Mucinex -) 600 mg PO BID [facility] Last Admin: 03/21/17 21:29 Dose: 600 mg Hydralazine HCl (Apresoline -) 10 mg PO BID [facility] Last Admin: 03/21/17 21:29 Dose: 10 mg Pantoprazole Sodium 80 mg/ (Sodium Chloride) 100 mls @ 10 mls/hr IVPB Q10H [facility] PRN Reason: 8 MG/HR Last Admin: 03/22/17 01:04 Dose: 10 mls/hr Metronidazole (Flagyl 500mg Premixed Ivpb -) 100 mls @ 100 mls/hr IVPB Q8H-IV [facility] Last Admin: 03/22/17 01:05 Dose: 100 mls/hr Meropenem 1 gm/ Dextrose 100 mls @ 100 mls/hr IVPB Q8H-IV [facility] PRN Reason: Protocol Last Admin: 03/22/17 01:05 Dose: 100 mls/hr Levetiracetam 250 mg/ (Levetiracetam 500 mg) 750 mg PO BID [facility] Last Admin: 03/21/17 22:30 Dose: 750 mg Loratadine (Claritin -) 10 mg PO DAILY [facility] Last Admin: 03/21/17 11:25 Dose: 10 mg Methylprednisolone Sodium Succinate (Solu-Medrol -) 40 mg IVPB Q8H-IV [facility] Last Admin: 03/22/17 01:05 Dose: 40 mg Mometasone Furoate (Asmanex 220mcg -) [address] [facility] Last Admin: 03/21/17 21:33 Dose: 1 puff Montelukast Sodium (Singulair -) [address] [facility] Last Admin: 03/21/17 21:56 Dose: 10 mg Multi-Ingredient Ointment (Zinc Oxide) 1 applic TP TID [facility] Last Admin: 03/22/17 06:00 Dose: 1 applic Mupirocin (Bactroban Ointment (For Decolonization) -) 1 applic NS BID [facility] Stop: 03/26/17 21:59 Last Admin: 03/21/17 21:39 Dose: 1 applic Non-Formulary Medication (Lipase/Protease/Amylase [Pancrease Ec Capsule]) 4 each PO DAILY [facility] Nystatin (Nystop Powder -) 1 applic TP BID [facility] Last Admin: 03/21/17 21:33 Dose: 1 applic Oxymetazoline HCl (Afrin -) 2 spray NS BID PRN PRN Reason: NASAL CONGESTION Last Admin: 03/21/17 11:28 Dose: 2 spray Piperacillin Sod/Tazobactam Sod (Zosyn 3.375gm Ivpb (Pre-Docked)) 3.375 gm IVPB Q8H-IV [facility] PRN Reason: Protocol Solifenacin (Vesicare -) 10 mg PO DAILY [facility] Last Admin: 03/21/17 11:25 Dose: 10 mg Tamsulosin HCl (Flomax -) 0.4 mg PO DAILY [facility] Last Admin: 03/21/17 11:26 Dose: 0.4 mg A/P Acute on Chronic Hypoxic Respiratory Failure Pneumonia COPD CAD LV Diastolic Dysfunction GI Bleed Anemia Lymphoma - antibiotics per ID - f/u cultures - continue IV medrol - inhaled bronchodilators - O2 to keep SpO2 >90% - aspiration precautions - on protonix gtt - monitor H/H, signs of bleeding - BiPAP as needed to assist in work of breathing - DVT prophylaxis - continue ICU monitoring critical care time spent in reviewing chart, evaluating patient and formulating plan 35 min
--- NOTE | 2017-03-22 09:48 | PN ---
Progress Note, Physician Chief Complaint: Patient with coughing today, notes breathing is "lousy". Notes slight abd pain diffusely. Received PRBC yesterday, this morning hgb 9.2. - Current Medication List Current Medications: Active Medications Acetaminophen (Tylenol -) 650 mg PO Q4H PRN PRN Reason: FEVER OR PAIN Albuterol/Ipratropium (Duoneb -) 1 amp NEB QIDR [facility] Last Admin: 03/22/17 06:00 Dose: 1 amp Amlodipine Besylate (Norvasc -) 10 mg PO DAILY [facility] Last Admin: 03/21/17 11:25 Dose: 10 mg Atorvastatin Calcium (Lipitor -) 10 mg PO HS [facility] Last Admin: 03/21/17 21:56 Dose: 10 mg Chlorhexidine Gluconate (Hibiclens For Decolonization -) 1 applic TP [facility] Last Admin: 03/21/17 21:41 Dose: 1 applic Cholecalciferol (Vitamin D3 -) 1,000 unit PO DAILY [facility] Last Admin: 03/21/17 11:25 Dose: 1,000 unit Cholestyramine Resin (Questran Light Packet -) 4 gm PO BID [facility] Last Admin: 03/21/17 22:30 Dose: 4 gm Guaifenesin (Mucinex -) 600 mg PO BID [facility] Last Admin: 03/21/17 21:29 Dose: 600 mg Hydralazine HCl (Apresoline -) 10 mg PO BID [facility] Last Admin: 03/21/17 21:29 Dose: 10 mg Pantoprazole Sodium 80 mg/ (Sodium Chloride) 100 mls @ 10 mls/hr IVPB Q10H [facility] PRN Reason: 8 MG/HR Last Admin: 03/22/17 01:04 Dose: 10 mls/hr Metronidazole (Flagyl 500mg Premixed Ivpb -) 100 mls @ 100 mls/hr IVPB Q8H-IV [facility] Last Admin: 03/22/17 01:05 Dose: 100 mls/hr Meropenem 1 gm/ Dextrose 100 mls @ 100 mls/hr IVPB Q8H-IV [facility] PRN Reason: Protocol Last Admin: 03/22/17 01:05 Dose: 100 mls/hr Levetiracetam 250 mg/ (Levetiracetam 500 mg) 750 mg PO BID [facility] Last Admin: 03/21/17 22:30 Dose: 750 mg Loratadine (Claritin -) 10 mg PO DAILY [facility] Last Admin: 03/21/17 11:25 Dose: 10 mg Methylprednisolone Sodium Succinate (Solu-Medrol -) 40 mg IVPB Q8H-IV [facility] Last Admin: 03/22/17 01:05 Dose: 40 mg Mometasone Furoate (Asmanex 220mcg -) 1 puff IH HS [facility] Last Admin: 03/21/17 21:33 Dose: 1 puff Montelukast Sodium (Singulair -) 10 mg PO HS [facility] Last Admin: 03/21/17 21:56 Dose: 10 mg Multi-Ingredient Ointment (Zinc Oxide) 1 applic TP TID [facility] Last Admin: 03/22/17 06:00 Dose: 1 applic Mupirocin (Bactroban Ointment (For Decolonization) -) 1 applic NS BID [facility] Stop: 03/26/17 21:59 Last Admin: 03/21/17 21:39 Dose: 1 applic Non-Formulary Medication (Lipase/Protease/Amylase [Pancrease Ec Capsule]) 4 each PO DAILY [facility] Nystatin (Nystop Powder -) 1 applic TP BID [facility] Last Admin: 03/21/17 21:33 Dose: 1 applic Oxymetazoline HCl (Afrin -) 2 spray NS BID PRN PRN Reason: NASAL CONGESTION Last Admin: 03/21/17 11:28 Dose: 2 spray Piperacillin Sod/Tazobactam Sod (Zosyn 3.375gm Ivpb (Pre-Docked)) 3.375 gm IVPB Q8H-IV [facility] PRN Reason: Protocol Solifenacin (Vesicare -) 10 mg PO DAILY [facility] Last Admin: 03/21/17 11:25 Dose: 10 mg Tamsulosin HCl (Flomax -) 0.4 mg PO DAILY [facility] Last Admin: 03/21/17 11:26 Dose: 0.4 mg - Objective Vital Signs: Vital Signs Temperature 97.9 F 03/22/17 06:00 Pulse Rate 74 03/22/17 06:00 Respiratory Rate 27 H 03/22/17 06:00 Blood Pressure 155/53 03/22/17 06:00 O2 Sat by Pulse Oximetry (%) 98 03/21/17 21:20 Constitutional: Yes: Mild Distress (due to coughing, congestion) Eyes: Yes: Conjunctiva Clear, EOM Intact HENT: Yes: Atraumatic, Normocephalic Cardiovascular: Yes: Regular Rate and Rhythm, S1, S2. No: Murmur Respiratory: Yes: Regular, Rhonchi (bilaterally) Gastrointestinal: Yes: Normal Bowel Sounds, Soft, Tenderness (, mild, greatest in LLQ) Edema: No Neurological: Yes: Alert, Oriented Labs: CBC, BMP 03/22/17 05:15 03/22/17 05:15 INR, PTT INR 1.03 (0.82-1.09) 03/22/17 05:15 Assessment/Plan Current Active Problems Acute and chronic respiratory failure with hypoxia (Acute) COPD exacerbation (Acute) Duodenitis (Acute) GI bleed (Acute) Peripheral arterial disease (Acute) Pneumonia (Acute) Respiratory distress (Acute) Thoracic aneurysm without mention of rupture (Acute) -cont abx, O2, breathing tx for bilateral PNA -recheck CBC this afternoon for GI bleed (on protonix drip)
[2017-03-22] MEDS ORDERED: PT OWN MED DRAWER 7, Y5N ONE ×2 (09:50→12:04)
[2017-03-22] MEDS: amLODIPine BESYLATE 10 MG TABLET (FP) PO SCH (09:55)
[2017-03-22] MEDS: TAMSULOSIN HCL 0.4 MG CAP.ER.24H (FP) PO SCH (09:55)
[2017-03-22] MEDS: CHOLECALCIFEROL (VITAMIN D3) 1,000 UNIT TABLET (FP) PO SCH (09:55)
[2017-03-22] MEDS: LEVETIRACETAM 250 MG, LEVETIRACETAM 500 MG PO SCH ×2 (09:56→22:08)
[2017-03-22] MEDS: guaiFENesin 600 MG TABLET.ER (FP) PO SCH ×2 (09:56→22:09)
[2017-03-22] MEDS: LORATADINE 10 MG TABLET PO SCH (09:56)
[2017-03-22] MEDS: SOLIFENACIN SUCCINATE 5 MG TAB (FP) PO SCH (09:56)
[2017-03-22] MEDS: MUPIROCIN 2% TOPICAL OINTMENT FOR DECOLONIZATION NS SCH ×2 (09:57→22:13)
[2017-03-22] MEDS: CHOLESTYRAMINE/ASPARTAME 4 GM PACKET PO SCH ×2 (09:59→22:09)
[2017-03-22] MEDS: NYSTATIN POWDER 100,000 UNITS/GM - 15 GM TOPICAL POWDER TP SCH ×2 (09:59→22:15)
[2017-03-22] MEDS ORDERED: PANTOPRAZOLE SODIUM 100 ML IVPB SCH (10:00)
[2017-03-22] MEDS ORDERED: hydrALAZINE HCL 10 MG TABLET PO SCH (10:46)
[2017-03-22] MEDS: hydrALAZINE HCL 10 MG TABLET PO SCH ×2 (11:09→22:10)
--- NOTE | 2017-03-22 11:15 | PN ---
Progress Note, Physician History of Present Illness: seen and examined today. states his sob is unchanged. no overnight events. - Current Medication List Current Medications: Active Medications Acetaminophen (Tylenol -) 650 mg PO Q4H PRN PRN Reason: FEVER OR PAIN Albuterol/Ipratropium (Duoneb -) 1 amp NEB QIDR [facility] Last Admin: 03/22/17 06:00 Dose: 1 amp Amlodipine Besylate (Norvasc -) 10 mg PO DAILY [facility] Last Admin: 03/22/17 09:55 Dose: 10 mg Atorvastatin Calcium (Lipitor -) 10 mg PO HS [facility] Last Admin: 03/21/17 21:56 Dose: 10 mg Chlorhexidine Gluconate (Hibiclens For Decolonization -) 1 applic TP [facility] Last Admin: 03/21/17 21:41 Dose: 1 applic Cholecalciferol (Vitamin D3 -) 1,000 unit PO DAILY [facility] Last Admin: 03/22/17 09:55 Dose: 1,000 unit Cholestyramine Resin (Questran Light Packet -) 4 gm PO BID [facility] Last Admin: 03/22/17 09:59 Dose: 4 gm Guaifenesin (Mucinex -) 600 mg PO BID [facility] Last Admin: 03/22/17 09:56 Dose: 600 mg Hydralazine HCl (Apresoline -) 10 mg PO BID [facility] Last Admin: 03/22/17 11:09 Dose: 10 mg Pantoprazole Sodium 80 mg/ (Sodium Chloride) 100 mls @ 10 mls/hr IVPB Q10H [facility] PRN Reason: 8 MG/HR Last Admin: 03/22/17 01:04 Dose: 10 mls/hr Metronidazole (Flagyl 500mg Premixed Ivpb -) 100 mls @ 100 mls/hr IVPB Q8H-IV [facility] Last Admin: 03/22/17 09:55 Dose: 100 mls/hr Meropenem 1 gm/ Dextrose 100 mls @ 100 mls/hr IVPB Q8H-IV [facility] PRN Reason: Protocol Last Admin: 03/22/17 11:07 Dose: 100 mls/hr Levetiracetam 250 mg/ (Levetiracetam 500 mg) 750 mg PO BID [facility] Last Admin: 03/22/17 09:56 Dose: 750 mg Loratadine (Claritin -) 10 mg PO DAILY [facility] Last Admin: 03/22/17 09:56 Dose: 10 mg Methylprednisolone Sodium Succinate (Solu-Medrol -) 40 mg IVPB Q8H-IV [facility] Last Admin: 03/22/17 09:54 Dose: 40 mg Mometasone Furoate (Asmanex 220mcg -) 1 puff IH HS [facility] Last Admin: 03/21/17 21:33 Dose: 1 puff Montelukast Sodium (Singulair -) 10 mg PO HS [facility] Last Admin: 03/21/17 21:56 Dose: 10 mg Multi-Ingredient Ointment (Zinc Oxide) 1 applic TP TID [facility] Last Admin: 03/22/17 06:00 Dose: 1 applic Mupirocin (Bactroban Ointment (For Decolonization) -) 1 applic NS BID [facility] Stop: 03/26/17 21:59 Last Admin: 03/22/17 09:57 Dose: 1 applic Non-Formulary Medication (Lipase/Protease/Amylase [Pancrease Ec Capsule]) 4 each PO DAILY [facility] Nystatin (Nystop Powder -) 1 applic TP BID [facility] Last Admin: 03/22/17 09:59 Dose: 1 applic Oxymetazoline HCl (Afrin -) 2 spray NS BID PRN PRN Reason: NASAL CONGESTION Last Admin: 03/21/17 11:28 Dose: 2 spray Piperacillin Sod/Tazobactam Sod (Zosyn 3.375gm Ivpb (Pre-Docked)) 3.375 gm IVPB Q8H-IV [facility] PRN Reason: Protocol Solifenacin (Vesicare -) 10 mg PO DAILY [facility] Last Admin: 03/22/17 09:56 Dose: 10 mg Tamsulosin HCl (Flomax -) 0.4 mg PO DAILY [facility] Last Admin: 03/22/17 09:55 Dose: 0.4 mg - Objective Vital Signs: Vital Signs Temperature 97.9 F 03/22/17 06:00 Pulse Rate 75 03/22/17 10:00 Respiratory Rate 24 03/22/17 10:00 Blood Pressure 148/53 03/22/17 10:00 O2 Sat by Pulse Oximetry (%) 99 03/22/17 10:00 Constitutional: Yes: No Distress, Calm Eyes: Yes: Conjunctiva Clear, EOM Intact, PERRL HENT: Yes: Atraumatic, Normocephalic Neck: Yes: Supple, Trachea Midline Cardiovascular: Yes: Regular Rate and Rhythm, S1, S2. No: Bradycardia, Tachycardia, Pulse Irregular, Bruit, JVD, Gallop, Murmur, Rub, S3, S4, Varicosities Respiratory: Yes: Regular, On Venti-Mask, Rhonchi, Wheezes. No: Rales Gastrointestinal: Yes: Normal Bowel Sounds, Soft. No: Distention, Tenderness Edema: LLE: Trace, RLE: Trace Peripheral Pulses WNL: Yes Peripheral Pulses: Left Doralis Pedis: 2+, Right Dorsalis Pedis: 2+ Integumentary: Yes: WNL Neurological: Yes: Alert, Oriented Psychiatric: Yes: Alert, Oriented Labs: CBC, BMP 03/22/17 05:15 03/22/17 05:15 INR, PTT INR 1.03 (0.82-1.09) 03/22/17 05:15 - ....Imaging Chest X-ray: Report Reviewed, Image Reviewed EKG: Report Reviewed, Image Reviewed Other: Report Reviewed, Image Reviewed (tele-nsr, occ pvcs, no sig arrhythmia) Assessment/Plan 89 year old man with a history of HTN, HLD, CAD, Chronic diastolic CHF, past CVA /TIA, COPD, Prostate Ca, PAD with recent admission for PNA/sepsis, COPD exacerbation now readmitted with respiratory distress, leukocytosis and CT showing bilateral PNA. SOB-primarily secondary to COPD and bilateral PNA. CT does not show significant volume overload, h/o chronic diastolic CHF -echo on recent admission showed no sig structural heart disease, normal LV function, no sig valvular abnl, no change from echo 2014 -pt does not appear to be in decompensated CHF, but monitor closely for development of fluid overload with steroids -mild LE edema noted, no rales on lung exam -pt was given 1 dose of IV Lasix yesterday -Hold additional Lasix at this time, would diurese prn if significant volume overload develops -Suppliment O2 and abx as per ID and Pulmonary. CAD- reported h/o CAD, unknown details, Mild troponin elevation last admission did not significantly trend up, unlikely type 1 GA. Probably secondary to underlying infection -currently stable -clarify why aggrenox stopped (was on this for prior CVA but ASA component beneficial for CAD and PAD) -no bblocker given h/o sig conduction disease and COPD -cont Lipitor HTN-variable but overall improving -cont amlodipine and hydralazine and adjust as needed -previously on Losartan but stopped last admission in setting of JEVON HLD -cont Lipitor Carotid stenosis-with reported stents and CEA -clarify why aggrenox stopped -cont statin
[2017-03-22] MEDS ORDERED: NITROGLYCERIN SUBLINGUAL 1/150 0.4 MG TAB SL ONE (12:15)
[2017-03-22] MEDS ORDERED: NITROGLYCERIN SUBLINGUAL 1/150 0.4 MG TAB ONE (12:17)
--- NOTE | 2017-03-22 12:59 | PN ---
Progress Note, Physician History of Present Illness: patient looks much calmer had a episode of chest pain currently no pain says he feels lousy received 2 units of blood - Current Medication List Current Medications: Active Medications Acetaminophen (Tylenol -) 650 mg PO Q4H PRN PRN Reason: FEVER OR PAIN Albuterol/Ipratropium (Duoneb -) 1 amp NEB QIDR [facility] Last Admin: 03/22/17 11:05 Dose: 1 amp Amlodipine Besylate (Norvasc -) 10 mg PO DAILY [facility] Last Admin: 03/22/17 09:55 Dose: 10 mg Atorvastatin Calcium (Lipitor -) 10 mg PO HS [facility] Last Admin: 03/21/17 21:56 Dose: 10 mg Chlorhexidine Gluconate (Hibiclens For Decolonization -) 1 applic TP [facility] Last Admin: 03/21/17 21:41 Dose: 1 applic Cholecalciferol (Vitamin D3 -) 1,000 unit PO DAILY [facility] Last Admin: 03/22/17 09:55 Dose: 1,000 unit Cholestyramine Resin (Questran Light Packet -) 4 gm PO BID [facility] Last Admin: 03/22/17 09:59 Dose: 4 gm Guaifenesin (Mucinex -) 600 mg PO BID [facility] Last Admin: 03/22/17 09:56 Dose: 600 mg Hydralazine HCl (Apresoline -) 10 mg PO BID [facility] Last Admin: 03/22/17 11:09 Dose: 10 mg Pantoprazole Sodium 80 mg/ (Sodium Chloride) 100 mls @ 10 mls/hr IVPB Q10H [facility] PRN Reason: 8 MG/HR Last Admin: 03/22/17 01:04 Dose: 10 mls/hr Metronidazole (Flagyl 500mg Premixed Ivpb -) 100 mls @ 100 mls/hr IVPB Q8H-IV [facility] Last Admin: 03/22/17 09:55 Dose: 100 mls/hr Meropenem 1 gm/ Dextrose 100 mls @ 100 mls/hr IVPB Q8H-IV [facility] PRN Reason: Protocol Last Admin: 03/22/17 11:07 Dose: 100 mls/hr Levetiracetam 250 mg/ (Levetiracetam 500 mg) 750 mg PO BID [facility] Last Admin: 03/22/17 09:56 Dose: 750 mg Loratadine (Claritin -) 10 mg PO DAILY [facility] Last Admin: 03/22/17 09:56 Dose: 10 mg Methylprednisolone Sodium Succinate (Solu-Medrol -) 40 mg IVPB Q8H-IV [facility] Last Admin: 03/22/17 09:54 Dose: 40 mg Mometasone Furoate (Asmanex 220mcg -) 1 puff IH HS [facility] Last Admin: 03/21/17 21:33 Dose: 1 puff Montelukast Sodium (Singulair -) 10 mg PO HS [facility] Last Admin: 03/21/17 21:56 Dose: 10 mg Multi-Ingredient Ointment (Zinc Oxide) 1 applic TP TID [facility] Last Admin: 03/22/17 06:00 Dose: 1 applic Mupirocin (Bactroban Ointment (For Decolonization) -) 1 applic NS BID [facility] Stop: 03/26/17 21:59 Last Admin: 03/22/17 09:57 Dose: 1 applic Non-Formulary Medication (Lipase/Protease/Amylase [Pancrease Ec Capsule]) 4 each PO DAILY [facility] Nystatin (Nystop Powder -) 1 applic TP BID [facility] Last Admin: 03/22/17 09:59 Dose: 1 applic Oxymetazoline HCl (Afrin -) 2 spray NS BID PRN PRN Reason: NASAL CONGESTION Last Admin: 03/21/17 11:28 Dose: 2 spray Piperacillin Sod/Tazobactam Sod (Zosyn 3.375gm Ivpb (Pre-Docked)) 3.375 gm IVPB Q8H-IV [facility] PRN Reason: Protocol Solifenacin (Vesicare -) 10 mg PO DAILY [facility] Last Admin: 03/22/17 09:56 Dose: 10 mg Tamsulosin HCl (Flomax -) 0.4 mg PO DAILY [facility] Last Admin: 03/22/17 09:55 Dose: 0.4 mg - Objective Vital Signs: Vital Signs Temperature 97.9 F 03/22/17 06:00 Pulse Rate 77 03/22/17 12:00 Respiratory Rate 26 H 03/22/17 12:00 Blood Pressure 161/44 03/22/17 12:00 O2 Sat by Pulse Oximetry (%) 99 03/22/17 10:00 Constitutional: Yes: Calm, Mild Distress Cardiovascular: Yes: Regular Rate and Rhythm, Pulse Irregular, S1, S2 Respiratory: Yes: On Nasal O2, Poor Air Entry, Rhonchi Gastrointestinal: Yes: Normal Bowel Sounds, Soft Musculoskeletal: Yes: WNL Extremities: Yes: WNL Edema: LLE: Trace, RLE: Trace Neurological: Yes: Alert, Oriented Psychiatric: Yes: Alert, Oriented Labs: CBC, BMP 03/22/17 05:15 03/22/17 05:15 INR, PTT INR 1.03 (0.82-1.09) 03/22/17 05:15 Assessment/Plan Problem List - Problems (1) Pneumonia Code(s): J18.9 - PNEUMONIA, UNSPECIFIED ORGANISM Qualifiers: Pneumonia type: due to unspecified organism Laterality: bilateral Lung location: lower lobe of lung Qualified Code(s): J18.9 - Pneumonia, unspecified organism (2) COPD exacerbation Code(s): J44.1 - CHRONIC OBSTRUCTIVE PULMONARY DISEASE W (ACUTE) EXACERBATION (3) YEISON (acute kidney injury) Code(s): N17.9 - ACUTE KIDNEY FAILURE, UNSPECIFIED (4) Acute respiratory failure Code(s): J96.00 - ACUTE RESPIRATORY FAILURE, UNSP W HYPOXIA OR HYPERCAPNIA (5) CHF (congestive heart failure) Code(s): I50.9 - HEART FAILURE, UNSPECIFIED Qualifiers: Congestive heart failure type: unspecified congestive heart failure type Congestive heart failure chronicity: unspecified congestive heart failure chronicity Qualified Code(s): I50.9 - Heart failure, unspecified (6) CVA (cerebral vascular accident) Code(s): I63.9 - CEREBRAL INFARCTION, UNSPECIFIED Qualifiers: CVA mechanism: unspecified Qualified Code(s): I63.9 - Cerebral infarction, unspecified (7) HTN (hypertension) Code(s): I10 - ESSENTIAL (PRIMARY) HYPERTENSION Qualifiers: Hypertension type: essential hypertension Qualified Code(s): I10 - Essential (primary) hypertension (8) Duodenitis Code(s): K29.80 - DUODENITIS WITHOUT BLEEDING plan continue abx continue protonix drip close monitoring of resp status rest as per icu cc time 40 min
--- NOTE | 2017-03-22 14:38 | PN ---
GI Progress Note Subjective: GI ( covering Dr Mortensen): Had two maroon stools today but the 2nd was but a smudge. Hb is 9.2 after transfusion. Denies abdominal pain and wants something to drink. Denies swallowing difficulties. - Objective Vital Signs: Vital Signs Temperature 97.9 F 03/22/17 06:00 Pulse Rate 77 03/22/17 12:00 Respiratory Rate 26 H 03/22/17 12:00 Blood Pressure 161/44 03/22/17 12:00 O2 Sat by Pulse Oximetry (%) 99 03/22/17 10:00 Constitutional: Calm Gastrointestinal Inspection: Yes: Distention ...Auscultate: Yes: Normoactive Bowel Sounds ...Palpate: Yes: Soft, Other (nontender) Labs: CBC, BMP 03/22/17 05:15 03/22/17 05:15 INR, PTT INR 1.03 (0.82-1.09) 03/22/17 05:15 Laboratory Tests 03/20/17 03/21/17 03/22/17 17:05 15:00 05:15 WBC 18.8 H 14.3 H Hgb 9.8 L 7.1 L D 9.2 L D Assessment/Plan GI bleeding, appears to be subsiding. Repeat CBC about to be drawn. Will allow clear liquids. Continue PPI drip.
[2017-03-22 15:56] LABS: MCH 29.2 pg (25.7-33.7); MCHC 32.6 g/dl (32.0-35.9); MEAN CELL VOLUME 89.6 fl (80-96); MEAN PLT VOLUME 7.7 fl (7.5-11.1); PLATELET COUNT 172 K/MM3 (134-434); RDW 16.8 % (11.9-15.9); WHITE BLOOD COUNT 15.7 K/mm3 (4.0-10.0)
[2017-03-22] MEDS ORDERED: NITROGLYCERIN SUBLINGUAL 1/150 0.4 MG TAB SL PRN (18:41)
[2017-03-22 20:26] LABS: TROPONIN I 0.05 ng/ml (0.00-0.05)
[2017-03-22] MEDS: ACETAMINOPHEN 325 MG TABLET (FP) PO PRN (20:31)
[2017-03-22] MEDS: MONTELUKAST NA 10 MG TABLET PO SCH (22:09)
[2017-03-22] MEDS: ATORVASTATIN CA 10 MG TABLET (FP) PO SCH (22:09)
[2017-03-22] MEDS: MOMETASONE FUROATE 220 MCG/IH INHALER IH SCH (22:12)
[2017-03-22] MEDS: CHLORHEXIDINE GLUCONATE 4% CLEANSER FOR DECOLONIZATION TP SCH (22:15)
[2017-03-23] MEDS: ACETAMINOPHEN 325 MG TABLET (FP) PO PRN ×3 (01:02→21:26)
[2017-03-23] MEDS: MEROPENEM 1 GM in DEXTROSE 5%-WATER - 100 ML IVPB SCH ×3 (01:03→17:46)
[2017-03-23] MEDS: methylPREDNISolone NA SUCC 40 MG/1 ML VIAL IVPB SCH ×3 (01:03→17:46)
[2017-03-23] MEDS: METRONIDAZOLE 500 MG PREMIXED 100 ML IVPB SCH ×3 (01:03→17:46)
[2017-03-23 05:46] LABS: BASOPHIL 0.2 % (0-2.0); EOSINOPHIL 0.1 % (0-4.5); MCH 29.5 pg (25.7-33.7); MCHC 32.8 g/dl (32.0-35.9); MEAN CELL VOLUME 89.7 fl (80-96); MEAN PLT VOLUME 7.6 fl (7.5-11.1); PLATELET COUNT 170 K/MM3 (134-434); RDW 16.6 % (11.9-15.9)
[2017-03-23] MEDS: ZINC OXIDE 20% TOPICAL OINTMENT 30 GM TUBE TP SCH ×3 (06:02→22:22)
[2017-03-23 06:19] LABS: ALBUMIN 2.6 g/dl (3.4-5.0); ANION GAP 7 (8-16); CALCIUM 8.1 mg/dL (8.5-10.1); CO2 28 mmol/L (21-32); GLUCOSE,RANDOM 178 mg/dL (74-106); MAGNESIUM 2.7 mg/dL (1.8-2.4)
[2017-03-23] MEDS: ALBUTEROL SO4 2.5/IPRATROPIUM 0.5 INH SOL 3 ML VIAL.NEB. NEB SCH ×4 (06:20→23:05)
[2017-03-23 06:24] LABS: ALK PHOS 48 U/L (45-117); BILIRUBIN,TOTAL 0.4 mg/dL (0.2-1.0); CREATININE 1.2 mg/dL (0.7-1.3); PHOSPHOROUS 3.2 mg/dL (2.5-4.9); SGOT/AST 14 U/L (15-37); SGPT/ALT 20 U/L (12-78); TOT PROT 5.3 g/dl (6.4-8.2)
[2017-03-23 08:53] LABS: TROPONIN I 0.05 ng/ml (0.00-0.05)
[2017-03-23] MEDS: PANTOPRAZOLE SODIUM 80 MG in SODIUM CHLORIDE 100 ML IVPB SCH ×2 (09:07→18:48)
[2017-03-23] MEDS ORDERED: PT OWN MED DRAWER 7, Y5N ONE ×2 (09:23→17:41)
[2017-03-23] MEDS: CHOLECALCIFEROL (VITAMIN D3) 1,000 UNIT TABLET (FP) PO SCH (09:25)
[2017-03-23] MEDS: amLODIPine BESYLATE 10 MG TABLET (FP) PO SCH (09:26)
[2017-03-23] MEDS: TAMSULOSIN HCL 0.4 MG CAP.ER.24H (FP) PO SCH (09:26)
[2017-03-23] MEDS: guaiFENesin 600 MG TABLET.ER (FP) PO SCH ×2 (09:26→21:25)
[2017-03-23] MEDS: LORATADINE 10 MG TABLET PO SCH (09:26)
[2017-03-23] MEDS: SOLIFENACIN SUCCINATE 5 MG TAB (FP) PO SCH (09:26)
[2017-03-23] MEDS: hydrALAZINE HCL 10 MG TABLET PO SCH ×2 (09:27→21:23)
[2017-03-23] MEDS: CHOLESTYRAMINE/ASPARTAME 4 GM PACKET PO SCH ×2 (09:27→21:25)
[2017-03-23] MEDS: LEVETIRACETAM 250 MG, LEVETIRACETAM 500 MG PO SCH ×2 (09:28→21:24)
[2017-03-23] MEDS: MUPIROCIN 2% TOPICAL OINTMENT FOR DECOLONIZATION NS SCH ×2 (09:31→22:22)
[2017-03-23] MEDS: NYSTATIN POWDER 100,000 UNITS/GM - 15 GM TOPICAL POWDER TP SCH ×2 (09:31→22:22)
--- NOTE | 2017-03-23 09:40 | PN ---
Progress Note (short form) - Note Progress Note: PULMONARY/CCM Pt seen and examined in the ICU. Still with shortness of breath and +cough with thick sputum. No fevers recorded. Denies abdominal pain. Saturating better on nasal cannula. Last Vital Signs Temp Pulse Resp BP Pulse Ox 97.1 F L 75 19 158/57 97 03/23/17 06:00 03/23/17 08:00 03/23/17 08:00 03/23/17 08:00 03/22/17 22:00 Intake & Output 03/20/17 03/21/17 03/22/17 03/23/17 23:59 23:59 23:59 23:59 Intake Total 0 760 1852 320 Balance 0 760 1852 320 Weight 208 lb 190 lb 11.2 oz 190 lb 6.4 oz Gen: tachypneic at rest Heart: RRR Lung: bilateral rhonchi Abd: soft, nontender Ext: no edema CBC, BMP 03/23/17 05:15 03/23/17 05:15 Active Medications Acetaminophen (Tylenol -) 650 mg PO Q4H PRN PRN Reason: FEVER OR PAIN Last Admin: 03/23/17 06:02 Dose: 650 mg Albuterol/Ipratropium (Duoneb -) 1 amp NEB QIDR [facility] Last Admin: 03/23/17 06:20 Dose: 1 amp Amlodipine Besylate (Norvasc -) 10 mg PO DAILY [facility] Last Admin: 03/23/17 09:26 Dose: 10 mg Atorvastatin Calcium (Lipitor -) 10 mg PO [facility] Last Admin: 03/22/17 22:09 Dose: 10 mg Chlorhexidine Gluconate (Hibiclens For Decolonization -) 1 applic TP [facility] Last Admin: 03/22/17 22:15 Dose: 1 applic Cholecalciferol (Vitamin D3 -) 1,000 unit PO DAILY [facility] Last Admin: 03/23/17 09:25 Dose: 1,000 unit Cholestyramine Resin (Questran Light Packet -) 4 gm PO BID [facility] Last Admin: 03/23/17 09:27 Dose: 4 gm Guaifenesin (Mucinex -) 600 mg PO BID [facility] Last Admin: 03/23/17 09:26 Dose: 600 mg Hydralazine HCl (Apresoline -) 10 mg PO BID [facility] Last Admin: 03/23/17 09:27 Dose: 10 mg Pantoprazole Sodium 80 mg/ (Sodium Chloride) 100 mls @ 10 mls/hr IVPB Q10H [facility] PRN Reason: 8 MG/HR Last Admin: 03/23/17 09:07 Dose: 10 mls/hr Metronidazole (Flagyl 500mg Premixed Ivpb -) 100 mls @ 100 mls/hr IVPB Q8H-IV [facility] Last Admin: 03/23/17 09:25 Dose: 100 mls/hr Meropenem 1 gm/ Dextrose 100 mls @ 100 mls/hr IVPB Q8H-IV [facility] PRN Reason: Protocol Last Admin: 03/23/17 09:25 Dose: 100 mls/hr Levetiracetam 250 mg/ (Levetiracetam 500 mg) 750 mg PO BID [facility] Last Admin: 03/23/17 09:28 Dose: 750 mg Loratadine (Claritin -) 10 mg PO DAILY [facility] Last Admin: 03/23/17 09:26 Dose: 10 mg Methylprednisolone Sodium Succinate (Solu-Medrol -) 40 mg IVPB Q8H-IV [facility] Last Admin: 03/23/17 09:25 Dose: 40 mg Mometasone Furoate (Asmanex 220mcg -) 1 puff IH [facility] Last Admin: 03/22/17 22:12 Dose: 1 puff Montelukast Sodium (Singulair -) 10 mg PO HS [facility] Last Admin: 03/22/17 22:09 Dose: 10 mg Multi-Ingredient Ointment (Zinc Oxide) 1 applic TP TID [facility] Last Admin: 03/23/17 06:02 Dose: 1 applic Mupirocin (Bactroban Ointment (For Decolonization) -) 1 applic NS BID [facility] Stop: 03/26/17 21:59 Last Admin: 03/23/17 09:31 Dose: 1 applic Nitroglycerin (Nitrostat -) 0.4 mg SL [id number] PRN PRN Reason: CHEST PAIN Non-Formulary Medication (Lipase/Protease/Amylase [Pancrease Ec Capsule]) 4 each PO DAILY [facility] Nystatin (Nystop Powder -) 1 applic TP BID [facility] Last Admin: 03/23/17 09:31 Dose: 1 applic Oxymetazoline HCl (Afrin -) 2 spray NS BID PRN PRN Reason: NASAL CONGESTION Last Admin: 03/21/17 11:28 Dose: 2 spray Piperacillin Sod/Tazobactam Sod (Zosyn 3.375gm Ivpb (Pre-Docked)) 3.375 gm IVPB Q8H-IV [facility] PRN Reason: Protocol Solifenacin (Vesicare -) 10 mg PO DAILY [facility] Last Admin: 03/23/17 09:26 Dose: 10 mg Tamsulosin HCl (Flomax -) 0.4 mg PO DAILY [facility] Last Admin: 03/23/17 09:26 Dose: 0.4 mg A/P Acute on Chronic Hypoxic Respiratory Failure Pneumonia COPD CAD LV Diastolic Dysfunction GI Bleed Anemia Lymphoma - antibiotics per ID - f/u cultures - continue medrol - inhaled bronchodilators - O2 to keep SpO2 >90% - aspiration precautions - on protonix gtt - monitor H/H, signs of bleeding - BiPAP as needed to assist in work of breathing - DVT prophylaxis - continue ICU monitoring critical care time spent in reviewing chart, evaluating patient and formulating plan 35 min
--- NOTE | 2017-03-23 10:20 | PN ---
Progress Note, Physician History of Present Illness: seen and examined today in nad. reported episodes of chest pain yesterday and this am. feeling slightly better today. - Current Medication List Current Medications: Active Medications Acetaminophen (Tylenol -) 650 mg PO Q4H PRN PRN Reason: FEVER OR PAIN Last Admin: 03/23/17 06:02 Dose: 650 mg Albuterol/Ipratropium (Duoneb -) 1 amp NEB QIDR [facility] Last Admin: 03/23/17 06:20 Dose: 1 amp Amlodipine Besylate (Norvasc -) 10 mg PO DAILY [facility] Last Admin: 03/23/17 09:26 Dose: 10 mg Atorvastatin Calcium (Lipitor -) 10 mg PO HS [facility] Last Admin: 03/22/17 22:09 Dose: 10 mg Chlorhexidine Gluconate (Hibiclens For Decolonization -) 1 applic TP [facility] Last Admin: 03/22/17 22:15 Dose: 1 applic Cholecalciferol (Vitamin D3 -) 1,000 unit PO DAILY [facility] Last Admin: 03/23/17 09:25 Dose: 1,000 unit Cholestyramine Resin (Questran Light Packet -) 4 gm PO BID [facility] Last Admin: 03/23/17 09:27 Dose: 4 gm Guaifenesin (Mucinex -) 600 mg PO BID [facility] Last Admin: 03/23/17 09:26 Dose: 600 mg Hydralazine HCl (Apresoline -) 10 mg PO BID [facility] Last Admin: 03/23/17 09:27 Dose: 10 mg Pantoprazole Sodium 80 mg/ (Sodium Chloride) 100 mls @ 10 mls/hr IVPB Q10H [facility] PRN Reason: 8 MG/HR Last Admin: 03/23/17 09:07 Dose: 10 mls/hr Metronidazole (Flagyl 500mg Premixed Ivpb -) 100 mls @ 100 mls/hr IVPB Q8H-IV [facility] Last Admin: 03/23/17 09:25 Dose: 100 mls/hr Meropenem 1 gm/ Dextrose 100 mls @ 100 mls/hr IVPB Q8H-IV [facility] PRN Reason: Protocol Last Admin: 03/23/17 09:25 Dose: 100 mls/hr Levetiracetam 250 mg/ (Levetiracetam 500 mg) 750 mg PO BID [facility] Last Admin: 03/23/17 09:28 Dose: 750 mg Loratadine (Claritin -) 10 mg PO DAILY [facility] Last Admin: 03/23/17 09:26 Dose: 10 mg Methylprednisolone Sodium Succinate (Solu-Medrol -) 40 mg IVPB Q8H-IV [facility] Last Admin: 03/23/17 09:25 Dose: 40 mg Mometasone Furoate (Asmanex 220mcg -) 1 puff IH HS [facility] Last Admin: 03/22/17 22:12 Dose: 1 puff Montelukast Sodium (Singulair -) 10 mg PO HS [facility] Last Admin: 03/22/17 22:09 Dose: 10 mg Multi-Ingredient Ointment (Zinc Oxide) 1 applic TP TID [facility] Last Admin: 03/23/17 06:02 Dose: 1 applic Mupirocin (Bactroban Ointment (For Decolonization) -) 1 applic NS BID [facility] Stop: 03/26/17 21:59 Last Admin: 03/23/17 09:31 Dose: 1 applic Nitroglycerin (Nitrostat -) 0.4 mg SL [id number] PRN PRN Reason: CHEST PAIN Non-Formulary Medication (Lipase/Protease/Amylase [Pancrease Ec Capsule]) 4 each PO DAILY [facility] Nystatin (Nystop Powder -) 1 applic TP BID [facility] Last Admin: 03/23/17 09:31 Dose: 1 applic Oxymetazoline HCl (Afrin -) 2 spray NS BID PRN PRN Reason: NASAL CONGESTION Last Admin: 03/21/17 11:28 Dose: 2 spray Piperacillin Sod/Tazobactam Sod (Zosyn 3.375gm Ivpb (Pre-Docked)) 3.375 gm IVPB Q8H-IV [facility] PRN Reason: Protocol Solifenacin (Vesicare -) 10 mg PO DAILY [facility] Last Admin: 03/23/17 09:26 Dose: 10 mg Tamsulosin HCl (Flomax -) 0.4 mg PO DAILY [facility] Last Admin: 03/23/17 09:26 Dose: 0.4 mg - Objective Vital Signs: Vital Signs Temperature 97.1 F L 03/23/17 06:00 Pulse Rate 75 03/23/17 08:00 Respiratory Rate 19 03/23/17 08:00 Blood Pressure 158/57 03/23/17 08:00 O2 Sat by Pulse Oximetry (%) 97 03/22/17 22:00 Constitutional: Yes: No Distress, Calm, Obese Eyes: Yes: Conjunctiva Clear, EOM Intact, PERRL HENT: Yes: Atraumatic, Normocephalic Neck: Yes: Supple, Trachea Midline Cardiovascular: Yes: Regular Rate and Rhythm, S1, S2. No: Bradycardia, Tachycardia, Pulse Irregular, Bruit, JVD, Gallop, Murmur, Rub, S3, S4, Varicosities Respiratory: Yes: Regular, Diminished, Rhonchi, SOB, Wheezes. No: Rales Gastrointestinal: Yes: Normal Bowel Sounds, Soft. No: Distention, Tenderness Musculoskeletal: Yes: Muscle Weakness Extremities: Yes: WNL Edema: No Peripheral Pulses WNL: Yes Peripheral Pulses: Left Doralis Pedis: 2+, Right Dorsalis Pedis: 2+ Integumentary: Yes: WNL Neurological: Yes: Alert, Oriented Psychiatric: Yes: Alert, Oriented Labs: CBC, BMP 03/23/17 05:15 03/23/17 05:15 INR, PTT INR 1.03 (0.82-1.09) 03/22/17 05:15 - ....Imaging Chest X-ray: Report Reviewed, Image Reviewed EKG: Report Reviewed, Image Reviewed Other: Report Reviewed, Image Reviewed (tele-nsr, pvcs, no sig arrhythmias) Assessment/Plan 89 year old man with a history of HTN, HLD, CAD, Chronic diastolic CHF, past CVA /TIA, COPD, Prostate Ca, PAD with recent admission for PNA/sepsis, COPD exacerbation now readmitted with respiratory distress, leukocytosis and CT showing bilateral PNA. SOB-AE COPD and bilateral PNA, h/o chronic diastolic CHF -echo on recent admission showed no sig structural heart disease, normal LV function, no sig valvular abnl, no change from echo 2014 -does not appear to be in decompensated CHF, but monitoring closely for development of fluid overload with steroids -Cxr today read as clear -holding standing Lasix, diurese prn -receiving supp O2 and Abx Chest pain-reported by RN yesterday afternoon and pt was given NTG SL, h/o reported CAD -when asked today pt states that he has the same episodes of chest pain 4-5x per day for a long time and he has attributed it to a hiatal hernia -cardiac enzymes wnl yesterday, ekg not significantly changed from prior ekgs, no arrhythmias on tele -repeat cardiac enzymes this am were also wnl -clarify why aggrenox stopped (was on this for prior CVA but ASA component beneficial for CAD and PAD) -no bblocker given h/o sig conduction disease and COPD -cont Lipitor HTN-variable, above goal at times -cont amlodipine and hydralazine and adjust as needed -previously on Losartan but stopped last admission in setting of JEVON HLD -cont Lipitor Carotid stenosis-with reported stents and CEA -clarify why aggrenox stopped -cont statin
--- NOTE | 2017-03-23 10:39 | PN ---
Progress Note, Physician History of Present Illness: States feels "about the same" today, but appears more comfortable (was coughing , dyspneic yesterday, more comfortable appearing today). H/H stable yesterday, after the blood transfusion - Current Medication List Current Medications: Active Medications Acetaminophen (Tylenol -) 650 mg PO Q4H PRN PRN Reason: FEVER OR PAIN Last Admin: 03/23/17 06:02 Dose: 650 mg Albuterol/Ipratropium (Duoneb -) 1 amp NEB QIDR [facility] Last Admin: 03/23/17 06:20 Dose: 1 amp Amlodipine Besylate (Norvasc -) 10 mg PO DAILY [facility] Last Admin: 03/23/17 09:26 Dose: 10 mg Atorvastatin Calcium (Lipitor -) 10 mg PO [facility] Last Admin: 03/22/17 22:09 Dose: 10 mg Chlorhexidine Gluconate (Hibiclens For Decolonization -) 1 applic TP [facility] Last Admin: 03/22/17 22:15 Dose: 1 applic Cholecalciferol (Vitamin D3 -) 1,000 unit PO DAILY [facility] Last Admin: 03/23/17 09:25 Dose: 1,000 unit Cholestyramine Resin (Questran Light Packet -) 4 gm PO BID [facility] Last Admin: 03/23/17 09:27 Dose: 4 gm Guaifenesin (Mucinex -) 600 mg PO BID [facility] Last Admin: 03/23/17 09:26 Dose: 600 mg Hydralazine HCl (Apresoline -) 10 mg PO BID [facility] Last Admin: 03/23/17 09:27 Dose: 10 mg Pantoprazole Sodium 80 mg/ (Sodium Chloride) 100 mls @ 10 mls/hr IVPB Q10H [facility] PRN Reason: 8 MG/HR Last Admin: 03/23/17 09:07 Dose: 10 mls/hr Metronidazole (Flagyl 500mg Premixed Ivpb -) 100 mls @ 100 mls/hr IVPB Q8H-IV [facility] Last Admin: 03/23/17 09:25 Dose: 100 mls/hr Meropenem 1 gm/ Dextrose 100 mls @ 100 mls/hr IVPB Q8H-IV [facility] PRN Reason: Protocol Last Admin: 03/23/17 09:25 Dose: 100 mls/hr Levetiracetam 250 mg/ (Levetiracetam 500 mg) 750 mg PO BID [facility] Last Admin: 03/23/17 09:28 Dose: 750 mg Loratadine (Claritin -) 10 mg PO DAILY [facility] Last Admin: 03/23/17 09:26 Dose: 10 mg Methylprednisolone Sodium Succinate (Solu-Medrol -) 40 mg IVPB Q8H-IV [facility] Last Admin: 03/23/17 09:25 Dose: 40 mg Mometasone Furoate (Asmanex 220mcg -) 1 puff IH [facility] Last Admin: 03/22/17 22:12 Dose: 1 puff Montelukast Sodium (Singulair -) 10 mg PO HS [facility] Last Admin: 03/22/17 22:09 Dose: 10 mg Multi-Ingredient Ointment (Zinc Oxide) 1 applic TP TID [facility] Last Admin: 03/23/17 06:02 Dose: 1 applic Mupirocin (Bactroban Ointment (For Decolonization) -) 1 applic NS BID [facility] Stop: 03/26/17 21:59 Last Admin: 03/23/17 09:31 Dose: 1 applic Nitroglycerin (Nitrostat -) 0.4 mg SL [id number] PRN PRN Reason: CHEST PAIN Non-Formulary Medication (Lipase/Protease/Amylase [Pancrease Ec Capsule]) 4 each PO DAILY [facility] Nystatin (Nystop Powder -) 1 applic TP BID [facility] Last Admin: 03/23/17 09:31 Dose: 1 applic Oxymetazoline HCl (Afrin -) 2 spray NS BID PRN PRN Reason: NASAL CONGESTION Last Admin: 03/21/17 11:28 Dose: 2 spray Piperacillin Sod/Tazobactam Sod (Zosyn 3.375gm Ivpb (Pre-Docked)) 3.375 gm IVPB Q8H-IV [facility] PRN Reason: Protocol Solifenacin (Vesicare -) 10 mg PO DAILY [facility] Last Admin: 03/23/17 09:26 Dose: 10 mg Tamsulosin HCl (Flomax -) 0.4 mg PO DAILY [facility] Last Admin: 03/23/17 09:26 Dose: 0.4 mg - Objective Vital Signs: Vital Signs Temperature 97.1 F L 03/23/17 06:00 Pulse Rate 75 03/23/17 08:00 Respiratory Rate 19 03/23/17 08:00 Blood Pressure 158/57 03/23/17 08:00 O2 Sat by Pulse Oximetry (%) 97 03/22/17 22:00 Constitutional: Yes: No Distress, Calm Eyes: Yes: Conjunctiva Clear, EOM Intact HENT: Yes: Atraumatic, Normocephalic Neck: Yes: Supple, Trachea Midline Cardiovascular: Yes: Regular Rate and Rhythm, S1, S2. No: Murmur Respiratory: Yes: Regular, Rhonchi (bilaterally), Wheezes (mild, bilaterally) Gastrointestinal: Yes: Normal Bowel Sounds, Soft. No: Distention, Tenderness Edema: LLE: Trace, RLE: Trace Labs: CBC, BMP 03/23/17 05:15 03/23/17 05:15 INR, PTT INR 1.03 (0.82-1.09) 03/22/17 05:15 Assessment/Plan Current Active Problems Acute and chronic respiratory failure with hypoxia (Acute) COPD exacerbation (Acute) Duodenitis (Acute) GI bleed (Acute) Peripheral arterial disease (Acute) Pneumonia (Acute) Respiratory distress (Acute) Thoracic aneurysm without mention of rupture (Acute) CAD -cont abx, O2, breathing tx for bilateral PNA -follow CBC's, to start on clear diet
--- NOTE | 2017-03-23 10:47 | PN ---
Progress Note (short form) - Note Progress Note: RENAL Pt is awake and alert he is now in the ICU now with O2 by NC Last Vital Signs Temp Pulse Resp BP Pulse Ox 97.1 F L 75 19 158/57 97 03/23/17 06:00 03/23/17 08:00 03/23/17 08:00 03/23/17 08:00 03/22/17 22:00 lungs bilat rhonchi cvs s1s2 distant abd soft ext no edema neuro a+ox3 urinates in diaper Current Medications Generic Name Dose Route Start Last Admin Trade Name Freq PRN Reason Stop Dose Admin Acetaminophen 650 mg 03/21/17 17:00 03/23/17 06:02 Tylenol - PO 650 mg Q4H PRN Administration FEVER OR PAIN Albuterol/Ipratropium 1 amp 03/21/17 12:00 03/23/17 06:20 Duoneb - NEB 1 amp QIDR [facility] Administration Amlodipine Besylate 10 mg 03/21/17 10:00 03/23/17 09:26 Norvasc - PO 10 mg DAILY [facility] Administration Atorvastatin Calcium 10 mg 03/21/17 22:00 03/22/17 22:09 Lipitor - PO 10 mg HS [facility] Administration Chlorhexidine Gluconate 1 applic 03/21/17 22:00 03/22/17 22:15 Hibiclens For Decolonization - TP 1 applic HS [facility] Administration Cholecalciferol 1,000 unit 03/21/17 10:00 03/23/17 09:25 Vitamin D3 - PO 1,000 unit DAILY [facility] Administration Cholestyramine Resin 4 gm 03/21/17 05:58 03/23/17 09:27 Questran Light Packet - PO 4 gm BID [facility] Administration Guaifenesin 600 mg 03/21/17 10:00 03/23/17 09:26 Mucinex - PO 600 mg BID [facility] Administration Hydralazine HCl 10 mg 03/22/17 11:15 03/23/17 09:27 Apresoline - PO 10 mg BID [facility] Administration Pantoprazole Sodium 80 mg/ 100 mls @ 10 mls/hr 03/21/17 14:45 03/23/17 09:07 Sodium Chloride IVPB 10 mls/hr Q10H [facility] Administration 8 MG/HR Metronidazole 100 mls @ 100 mls/hr 03/21/17 15:15 03/23/17 09:25 Flagyl 500mg Premixed Ivpb - IVPB 100 mls/hr Q8H-IV [facility] Administration Meropenem 1 gm/ Dextrose 100 mls @ 100 mls/hr 03/21/17 15:15 03/23/17 09:25 IVPB 100 mls/hr Q8H-IV [facility] Administration Protocol Levetiracetam 250 mg/ 750 mg 03/21/17 10:00 03/23/17 09:28 Levetiracetam 500 mg PO 750 mg BID [facility] Administration Loratadine 10 mg 03/21/17 10:00 03/23/17 09:26 Claritin - PO 10 mg DAILY [facility] Administration Methylprednisolone Sodium Succinate 40 mg 03/21/17 10:00 03/23/17 09:25 Solu-Medrol - IVPB 40 mg Q8H-IV [facility] Administration Mometasone Furoate 1 puff 03/21/17 22:00 03/22/17 22:12 Asmanex 220mcg - IH 1 puff HS [facility] Administration Montelukast Sodium 10 mg 03/21/17 22:00 03/22/17 22:09 Singulair - PO 10 mg HS [facility] Administration Multi-Ingredient Ointment 1 applic 03/21/17 14:00 03/23/17 06:02 Zinc Oxide TP 1 applic TID [facility] Administration Mupirocin 1 applic 03/21/17 22:00 03/23/17 09:31 Bactroban Ointment (For Decolonization) - NS 03/26/17 21:59 1 applic BID [facility] Administration Nitroglycerin 0.4 mg 03/22/17 18:41 Nitrostat - SL [id number] PRN CHEST PAIN Non-Formulary Medication 4 each 03/21/17 10:00 Lipase/Protease/Amylase [Pancrease Ec Capsule] PO DAILY [facility] Nystatin 1 applic 03/21/17 10:00 03/23/17 09:31 Nystop Powder - TP 1 applic BID [facility] Administration Oxymetazoline HCl 2 spray 03/20/17 23:00 03/21/17 11:28 Afrin - NS 2 spray BID PRN Administration NASAL CONGESTION Piperacillin Sod/Tazobactam Sod 3.375 gm 03/21/17 18:00 Zosyn 3.375gm Ivpb (Pre-Docked) IVPB Q8H-IV [facility] Protocol Solifenacin 10 mg 03/21/17 10:00 03/23/17 09:26 Vesicare - PO 10 mg DAILY [facility] Administration Tamsulosin HCl 0.4 mg 03/21/17 10:00 03/23/17 09:26 Flomax - PO 0.4 mg DAILY [facility] Administration CBC, BMP 03/23/17 05:15 03/23/17 05:15 Impression 1. YEISON has been resolving 2. Sepsis 3. hx CHF 4. COPD 5. CAD 6. hx CVA 7. anemia 8. hyperkalemia resolved 9. GI bleed- not actively bleeding 10. thoracic aortic aneurysm Plan -?need for AFRIN since its an alpha agonist -monitor renal function and hemoglobin - muriel BARBOUR
--- NOTE | 2017-03-23 11:07 | PN ---
GI Progress Note Subjective: GI NOte ( covering for Dr Mortensen) : Breathing more comfortably. Tolerated clear liquids. No BMs overnight. - Objective Vital Signs: Vital Signs Temperature 97.1 F L 03/23/17 06:00 Pulse Rate 75 03/23/17 08:00 Respiratory Rate 19 03/23/17 08:00 Blood Pressure 158/57 03/23/17 08:00 O2 Sat by Pulse Oximetry (%) 97 03/22/17 22:00 Constitutional: Calm ...Auscultate: Yes: Normoactive Bowel Sounds ...Palpate: Yes: Soft, Other (nontender) Labs: CBC, BMP 03/23/17 05:15 03/23/17 05:15 INR, PTT INR 1.03 (0.82-1.09) 03/22/17 05:15 Laboratory Tests 03/22/17 03/23/17 03/23/17 15:45 05:15 05:15 Hgb 9.3 L 8.9 L Retic Count BUN 49 H Creatinine 1.2 Ferritin Total Bilirubin 0.4 D AST 14 L D ALT 20 Alkaline Phosphatase 48 03/23/17 03/23/17 05:15 05:15 Hgb Retic Count 2.64 H BUN Creatinine Ferritin 292.313 Total Bilirubin AST ALT Alkaline Phosphatase Assessment/Plan GI bleeding, appears to be subsiding. Will allow full liquids and give Mylanta. Continue PPI drip. Dr. Mortensen will return tomorrow.
[2017-03-23] MEDS: MAG HYDROX/AL HYDROX/SIMETH 30 ML UNIT-DOSE CUP PO SCH ×2 (13:00→17:46)
--- NOTE | 2017-03-23 14:47 | PN ---
Progress Note, Physician History of Present Illness: patient says he is feeling better no bm overnight stable - Current Medication List Current Medications: Active Medications Acetaminophen (Tylenol -) 650 mg PO Q4H PRN PRN Reason: FEVER OR PAIN Last Admin: 03/23/17 06:02 Dose: 650 mg Al Hydroxide/Mg Hydroxide (Mylanta Oral Suspension -) 30 ml PO Q6HPO [facility] Albuterol/Ipratropium (Duoneb -) 1 amp NEB QIDR [facility] Last Admin: 03/23/17 11:11 Dose: 1 amp Amlodipine Besylate (Norvasc -) 10 mg PO DAILY [facility] Last Admin: 03/23/17 09:26 Dose: 10 mg Atorvastatin Calcium (Lipitor -) 10 mg PO HS [facility] Last Admin: 03/22/17 22:09 Dose: 10 mg Chlorhexidine Gluconate (Hibiclens For Decolonization -) 1 applic TP [facility] Last Admin: 03/22/17 22:15 Dose: 1 applic Cholecalciferol (Vitamin D3 -) 1,000 unit PO DAILY [facility] Last Admin: 03/23/17 09:25 Dose: 1,000 unit Cholestyramine Resin (Questran Light Packet -) 4 gm PO BID [facility] Last Admin: 03/23/17 09:27 Dose: 4 gm Guaifenesin (Mucinex -) 600 mg PO BID [facility] Last Admin: 03/23/17 09:26 Dose: 600 mg Hydralazine HCl (Apresoline -) 10 mg PO BID [facility] Last Admin: 03/23/17 09:27 Dose: 10 mg Pantoprazole Sodium 80 mg/ (Sodium Chloride) 100 mls @ 10 mls/hr IVPB Q10H [facility] PRN Reason: 8 MG/HR Last Admin: 03/23/17 09:07 Dose: 10 mls/hr Metronidazole (Flagyl 500mg Premixed Ivpb -) 100 mls @ 100 mls/hr IVPB Q8H-IV [facility] Last Admin: 03/23/17 09:25 Dose: 100 mls/hr Meropenem 1 gm/ Dextrose 100 mls @ 100 mls/hr IVPB Q8H-IV [facility] PRN Reason: Protocol Last Admin: 03/23/17 09:25 Dose: 100 mls/hr Levetiracetam 250 mg/ (Levetiracetam 500 mg) 750 mg PO BID [facility] Last Admin: 03/23/17 09:28 Dose: 750 mg Loratadine (Claritin -) 10 mg PO DAILY [facility] Last Admin: 03/23/17 09:26 Dose: 10 mg Methylprednisolone Sodium Succinate (Solu-Medrol -) 40 mg IVPB Q8H-IV [facility] Last Admin: 03/23/17 09:25 Dose: 40 mg Mometasone Furoate (Asmanex 220mcg -) 1 puff IH HS [facility] Last Admin: 03/22/17 22:12 Dose: 1 puff Montelukast Sodium (Singulair -) 10 mg PO HS [facility] Last Admin: 03/22/17 22:09 Dose: 10 mg Multi-Ingredient Ointment (Zinc Oxide) 1 applic TP TID [facility] Last Admin: 03/23/17 06:02 Dose: 1 applic Mupirocin (Bactroban Ointment (For Decolonization) -) 1 applic NS BID [facility] Stop: 03/26/17 21:59 Last Admin: 03/23/17 09:31 Dose: 1 applic Nitroglycerin (Nitrostat -) 0.4 mg SL [id number] PRN PRN Reason: CHEST PAIN Non-Formulary Medication (Lipase/Protease/Amylase [Pancrease Ec Capsule]) 4 each PO DAILY [facility] Nystatin (Nystop Powder -) 1 applic TP BID [facility] Last Admin: 03/23/17 09:31 Dose: 1 applic Oxymetazoline HCl (Afrin -) 2 spray NS BID PRN PRN Reason: NASAL CONGESTION Last Admin: 03/21/17 11:28 Dose: 2 spray Piperacillin Sod/Tazobactam Sod (Zosyn 3.375gm Ivpb (Pre-Docked)) 3.375 gm IVPB Q8H-IV [facility] PRN Reason: Protocol Solifenacin (Vesicare -) 10 mg PO DAILY [facility] Last Admin: 03/23/17 09:26 Dose: 10 mg Tamsulosin HCl (Flomax -) 0.4 mg PO DAILY [facility] Last Admin: 03/23/17 09:26 Dose: 0.4 mg - Objective Vital Signs: Vital Signs Temperature 97.4 F L 03/23/17 10:00 Pulse Rate 75 03/23/17 10:00 Respiratory Rate 19 03/23/17 10:00 Blood Pressure 154/51 03/23/17 10:00 O2 Sat by Pulse Oximetry (%) 97 03/23/17 10:00 Constitutional: Yes: No Distress, Calm Respiratory: Yes: Regular, Rhonchi, Other (cough) Gastrointestinal: Yes: Normal Bowel Sounds, Soft Musculoskeletal: Yes: WNL Extremities: Yes: WNL Neurological: Yes: Alert, Oriented Psychiatric: Yes: Alert, Oriented Labs: CBC, BMP 03/23/17 05:15 03/23/17 05:15 INR, PTT INR 1.03 (0.82-1.09) 03/22/17 05:15 Assessment/Plan Problem List - Problems (1) Pneumonia Code(s): J18.9 - PNEUMONIA, UNSPECIFIED ORGANISM Qualifiers: Pneumonia type: due to unspecified organism Laterality: bilateral Lung location: lower lobe of lung Qualified Code(s): J18.9 - Pneumonia, unspecified organism (2) COPD exacerbation Code(s): J44.1 - CHRONIC OBSTRUCTIVE PULMONARY DISEASE W (ACUTE) EXACERBATION (3) YEISON (acute kidney injury) Code(s): N17.9 - ACUTE KIDNEY FAILURE, UNSPECIFIED (4) Acute respiratory failure Code(s): J96.00 - ACUTE RESPIRATORY FAILURE, UNSP W HYPOXIA OR HYPERCAPNIA (5) CHF (congestive heart failure) Code(s): I50.9 - HEART FAILURE, UNSPECIFIED Qualifiers: Congestive heart failure type: unspecified congestive heart failure type Congestive heart failure chronicity: unspecified congestive heart failure chronicity Qualified Code(s): I50.9 - Heart failure, unspecified (6) CVA (cerebral vascular accident) Code(s): I63.9 - CEREBRAL INFARCTION, UNSPECIFIED Qualifiers: CVA mechanism: unspecified Qualified Code(s): I63.9 - Cerebral infarction, unspecified (7) HTN (hypertension) Code(s): I10 - ESSENTIAL (PRIMARY) HYPERTENSION Qualifiers: Hypertension type: essential hypertension Qualified Code(s): I10 - Essential (primary) hypertension (8) Duodenitis Code(s): K29.80 - DUODENITIS WITHOUT BLEEDING plan mssa pneumonia continue meropenam await for sensitivities rest continue as per primary once we ahve the sensitivites will down grade cc time 40 min
[2017-03-23] MEDS: ATORVASTATIN CA 10 MG TABLET (FP) PO SCH (21:24)
[2017-03-23] MEDS: CHLORHEXIDINE GLUCONATE 4% CLEANSER FOR DECOLONIZATION TP SCH (21:24)
[2017-03-23] MEDS: MONTELUKAST NA 10 MG TABLET PO SCH (21:38)
[2017-03-23] MEDS: MOMETASONE FUROATE 220 MCG/IH INHALER IH SCH (22:22)
[2017-03-24] MEDS: MAG HYDROX/AL HYDROX/SIMETH 30 ML UNIT-DOSE CUP PO SCH ×4 (00:14→18:38)
[2017-03-24] MEDS: MEROPENEM 1 GM in DEXTROSE 5%-WATER - 100 ML IVPB SCH ×3 (01:47→18:38)
[2017-03-24] MEDS: METRONIDAZOLE 500 MG PREMIXED 100 ML IVPB SCH ×3 (01:47→18:38)
[2017-03-24] MEDS: methylPREDNISolone NA SUCC 40 MG/1 ML VIAL IVPB SCH ×3 (01:48→18:43)
[2017-03-24] MEDS: PANTOPRAZOLE SODIUM 80 MG in SODIUM CHLORIDE 100 ML IVPB SCH ×2 (02:27→16:43)
[2017-03-24 05:39] LABS: MCH 29.6 pg (25.7-33.7); MCHC 32.7 g/dl (32.0-35.9); MEAN CELL VOLUME 90.5 fl (80-96); MEAN PLT VOLUME 7.5 fl (7.5-11.1); PLATELET COUNT 175 K/MM3 (134-434); RDW 16.5 % (11.9-15.9); WHITE BLOOD COUNT 14.9 K/mm3 (4.0-10.0)
[2017-03-24] MEDS: ZINC OXIDE 20% TOPICAL OINTMENT 30 GM TUBE TP SCH ×3 (06:01→21:31)
[2017-03-24] MEDS: ACETAMINOPHEN 325 MG TABLET (FP) PO PRN ×3 (06:02→21:23)
[2017-03-24] MEDS: ALBUTEROL SO4 2.5/IPRATROPIUM 0.5 INH SOL 3 ML VIAL.NEB. NEB SCH ×3 (06:20→17:12)
[2017-03-24 06:34] LABS: ALBUMIN 2.4 g/dl (3.4-5.0); ANION GAP 6 (8-16); CALCIUM 7.8 mg/dL (8.5-10.1); CO2 26 mmol/L (21-32); GLUCOSE,RANDOM 150 mg/dL (74-106); MAGNESIUM 2.7 mg/dL (1.8-2.4); PHOSPHOROUS 2.6 mg/dL (2.5-4.9); SGOT/AST 12 U/L (15-37); SGPT/ALT 20 U/L (12-78)
[2017-03-24 06:36] LABS: ALK PHOS 47 U/L (45-117); BILIRUBIN,TOTAL 0.4 mg/dL (0.2-1.0); TOT PROT 4.8 g/dl (6.4-8.2)
[2017-03-24] MEDS ORDERED: PT OWN MED DRAWER 7, Y5N ONE ×5 (07:44→23:11)
[2017-03-24] MEDS: SOLIFENACIN SUCCINATE 5 MG TAB (FP) PO SCH (09:20)
[2017-03-24] MEDS: LORATADINE 10 MG TABLET PO SCH (09:25)
[2017-03-24] MEDS: TAMSULOSIN HCL 0.4 MG CAP.ER.24H (FP) PO SCH (09:25)
[2017-03-24] MEDS: amLODIPine BESYLATE 10 MG TABLET (FP) PO SCH (09:25)
[2017-03-24] MEDS: guaiFENesin 600 MG TABLET.ER (FP) PO SCH ×2 (09:26→21:24)
--- NOTE | 2017-03-24 09:47 | PN ---
Progress Note, Physician History of Present Illness: seen and examined today in nad. states he thinks his sob is improved today. no overnight events. no new complaints. - Current Medication List Current Medications: Active Medications Acetaminophen (Tylenol -) 650 mg PO Q4H PRN PRN Reason: FEVER OR PAIN Last Admin: 03/24/17 06:02 Dose: 650 mg Al Hydroxide/Mg Hydroxide (Mylanta Oral Suspension -) 30 ml PO Q6HPO [facility] Last Admin: 03/24/17 06:01 Dose: 30 ml Albuterol/Ipratropium (Duoneb -) 1 amp NEB QIDR [facility] Last Admin: 03/24/17 06:20 Dose: 1 amp Amlodipine Besylate (Norvasc -) 10 mg PO DAILY [facility] Last Admin: 03/24/17 09:25 Dose: 10 mg Atorvastatin Calcium (Lipitor -) 10 mg PO HS [facility] Last Admin: 03/23/17 21:24 Dose: 10 mg Chlorhexidine Gluconate (Hibiclens For Decolonization -) 1 applic TP HS [facility] Last Admin: 03/23/17 21:24 Dose: 1 applic Cholecalciferol (Vitamin D3 -) 1,000 unit PO DAILY [facility] Last Admin: 03/23/17 09:25 Dose: 1,000 unit Cholestyramine Resin (Questran Light Packet -) 4 gm PO BID [facility] Last Admin: 03/23/17 21:25 Dose: 4 gm Guaifenesin (Mucinex -) 600 mg PO BID [facility] Last Admin: 03/24/17 09:26 Dose: 600 mg Hydralazine HCl (Apresoline -) 10 mg PO BID [facility] Last Admin: 03/23/17 21:23 Dose: 10 mg Pantoprazole Sodium 80 mg/ (Sodium Chloride) 100 mls @ 10 mls/hr IVPB Q10H [facility] PRN Reason: 8 MG/HR Last Admin: 03/24/17 02:27 Dose: 10 mls/hr Metronidazole (Flagyl 500mg Premixed Ivpb -) 100 mls @ 100 mls/hr IVPB Q8H-IV [facility] Last Admin: 03/24/17 09:23 Dose: 100 mls/hr Meropenem 1 gm/ Dextrose 100 mls @ 100 mls/hr IVPB Q8H-IV [facility] PRN Reason: Protocol Last Admin: 03/24/17 09:23 Dose: 100 mls/hr Levetiracetam 250 mg/ (Levetiracetam 500 mg) 750 mg PO BID [facility] Last Admin: 03/23/17 21:24 Dose: 750 mg Loratadine (Claritin -) 10 mg PO DAILY [facility] Last Admin: 03/24/17 09:25 Dose: 10 mg Methylprednisolone Sodium Succinate (Solu-Medrol -) 40 mg IVPB Q8H-IV [facility] Last Admin: 03/24/17 09:24 Dose: 40 mg Mometasone Furoate (Asmanex 220mcg -) 1 puff IH HS [facility] Last Admin: 03/23/17 22:22 Dose: 1 puff Montelukast Sodium (Singulair -) 10 mg PO HS [facility] Last Admin: 03/23/17 21:38 Dose: 10 mg Multi-Ingredient Ointment (Zinc Oxide) 1 applic TP TID [facility] Last Admin: 03/24/17 06:01 Dose: 1 applic Mupirocin (Bactroban Ointment (For Decolonization) -) 1 applic NS BID [facility] Stop: 03/26/17 21:59 Last Admin: 03/23/17 22:22 Dose: 1 applic Nitroglycerin (Nitrostat -) 0.4 mg SL [id number] PRN PRN Reason: CHEST PAIN Non-Formulary Medication (Lipase/Protease/Amylase [Pancrease Ec Capsule]) 4 each PO DAILY [facility] Nystatin (Nystop Powder -) 1 applic TP BID [facility] Last Admin: 03/23/17 22:22 Dose: 1 applic Oxymetazoline HCl (Afrin -) 2 spray NS BID PRN PRN Reason: NASAL CONGESTION Last Admin: 03/21/17 11:28 Dose: 2 spray Piperacillin Sod/Tazobactam Sod (Zosyn 3.375gm Ivpb (Pre-Docked)) 3.375 gm IVPB Q8H-IV [facility] PRN Reason: Protocol Solifenacin (Vesicare -) 10 mg PO DAILY [facility] Last Admin: 03/24/17 09:20 Dose: 10 mg Tamsulosin HCl (Flomax -) 0.4 mg PO DAILY [facility] Last Admin: 03/24/17 09:25 Dose: 0.4 mg - Objective Vital Signs: Vital Signs Temperature 97.4 F L 03/24/17 09:29 Pulse Rate 76 03/24/17 09:29 Respiratory Rate 22 03/24/17 09:29 Blood Pressure 119/73 03/24/17 09:29 O2 Sat by Pulse Oximetry (%) 96 03/24/17 09:00 Constitutional: Yes: No Distress, Calm, Obese Eyes: Yes: Conjunctiva Clear, EOM Intact, PERRL HENT: Yes: Atraumatic, Normocephalic Neck: Yes: Supple, Trachea Midline Cardiovascular: Yes: Regular Rate and Rhythm, S1, S2. No: Bradycardia, Tachycardia, Pulse Irregular, Bruit, JVD, Gallop, Murmur, Rub, S3, S4, Varicosities Respiratory: Yes: Regular, Diminished, On Nasal O2, Rhonchi, SOB, Wheezes. No: Rales Gastrointestinal: Yes: Normal Bowel Sounds, Soft. No: Distention, Tenderness Musculoskeletal: Yes: Muscle Weakness Edema: LLE: Trace, RLE: Trace Integumentary: Yes: WNL Neurological: Yes: Alert, Oriented Psychiatric: Yes: Alert, Oriented Labs: CBC, BMP 03/24/17 05:05 03/24/17 06:00 INR, PTT INR 1.03 (0.82-1.09) 03/22/17 05:15 - ....Imaging Chest X-ray: Report Reviewed, Image Reviewed EKG: Report Reviewed, Image Reviewed Other: Report Reviewed, Image Reviewed (tele-nsr, no events recorded) Assessment/Plan 89 year old man with a history of HTN, HLD, CAD, Chronic diastolic CHF, past CVA /TIA, COPD, Prostate Ca, PAD with recent admission for PNA/sepsis, COPD exacerbation now readmitted with respiratory distress, leukocytosis and CT showing bilateral PNA. SOB-AE COPD and bilateral PNA, h/o chronic diastolic CHF -Cxr again today read as no pulm edema or sig effusion -echo on recent admission showed no sig structural heart disease, normal LV function, no sig valvular abnl, no change from echo 2014 -holding standing Lasix, diurese prn -receiving supp O2 and Abx Chest pain-reported by RN yesterday afternoon and pt was given NTG SL, h/o reported CAD -pt reports chronic daily episodes of chest pain 4-5x per day attributed to a hiatal hernia -cardiac enzymes wnl, ekg not significantly changed from prior ekgs, no arrhythmias on tele -clarify why aggrenox stopped (was on this for prior CVA but ASA component beneficial for CAD and PAD) -would start ASA 81mg daily if aggrenox no longer needed and if no contraindications -no bblocker given h/o sig conduction disease and COPD -cont Lipitor HTN-variable, above goal at times, currently adequately controlled -cont amlodipine and hydralazine and adjust as needed -previously on Losartan but stopped last admission in setting of JEVON HLD -cont Lipitor Carotid stenosis-with reported stents and CEA -clarify why aggrenox stopped and start ASA as above -cont statin
[2017-03-24 09:48] LABS: PLATELET ESTIMATE ADEQUATE (NORMAL)
[2017-03-24] MEDS: hydrALAZINE HCL 10 MG TABLET PO SCH ×2 (10:08→22:46)
[2017-03-24] MEDS: LEVETIRACETAM 250 MG, LEVETIRACETAM 500 MG PO SCH ×2 (10:08→22:46)
[2017-03-24] MEDS: CHOLESTYRAMINE/ASPARTAME 4 GM PACKET PO SCH ×2 (10:08→22:48)
[2017-03-24] MEDS: CHOLECALCIFEROL (VITAMIN D3) 1,000 UNIT TABLET (FP) PO SCH (10:15)
[2017-03-24] MEDS: MUPIROCIN 2% TOPICAL OINTMENT FOR DECOLONIZATION NS SCH ×2 (10:17→21:30)
--- NOTE | 2017-03-24 10:42 | PN ---
Progress Note (short form) - Note Progress Note: Patient seen and examined. Events over the weekend noted. Breathing improved. Shortness of breath on & off. Denies chest pain, palpitation, dizziness. Afebrile. 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 Cardiovascular: Yes: CAD, HTN Pulmonary: Yes: COPD Gastrointestinal: Yes: Other (HX OF PROGRESSIVE REGURGITATION FOR YEARS, PLACED ON OMEPRAZOLE BY PMD NO WORK UP EVER DONE DESPITE SYMPTOMS) Renal/: Yes: Cancer (prostate) - Past Surgical History Past Surgical History: Yes: Carotid Endarterectomy (carotid "stent" about 2 years go), Stent (carotid; denies cardiac stent) - Advance Directives Advance Directives: Yes: Living Will, Health Care Proxy, DNR - Smoking History Smoking history: Former smoker Have you smoked in the past 12 months: No Aproximately how many cigarettes per day: 0 If you are a former smoker, when did you quit?: over 20 years go - Alcohol/Substance Use Hx Alcohol Use: No - Social History ADL: Family Assistance History of Recent Travel: No Home Medications - Allergies Allergies/Adverse Reactions: Allergies Allergy/AdvReac Type Severity Reaction Status Date / Time Anesthetics - Angle Type- Allergy Unknown Verified 03/20/17 17:27 Parabens [Anesthetics - Angle Type] latex Allergy Verified 03/20/17 17:27 - Home Medications Home Medications: Ambulatory Orders Albuterol 0.083% Nebulizer Lela [Ventolin 0.083% Nebulizer Soln -] 1 neb NEB BID 09/30/14 Aspirin/Dipyridamole [Aggrenox -] 1 combo PO BID 09/30/14 Cholecalciferol (Vitamin D3) [Vitamin D3] 1,000 unit PO DAILY 09/30/14 Cholestyramine/Sucrose [Cholestyramine Packet] 4 gm PO BID PRN 09/30/14 Fluticasone Propionate [Flovent Hfa] 110 mg IH BID 09/30/14 Levetiracetam [Keppra -] 750 mg PO BID 09/30/14 Lipase/Protease/Amylase [Pancrease EC Capsule] 4 each PO DAILY 09/30/14 Loratadine 10 mg PO DAILY 09/30/14 Montelukast Na [Singulair -] 10 mg PO HS 09/30/14 Simvastatin [Zocor] 20 mg PO HS 09/30/14 Solifenacin Succinate [Vesicare] 10 mg PO DAILY 09/30/14 Tamsulosin HCl [Flomax -] 0.4 mg PO DAILY 09/30/14 Tiotropium [place] [Spiriva] 1 inh PO DAILY 09/30/14 Lipase/Protease/Amylase [Pancrelipase 5,000 Dr Capsule -] 2 each PO BIDWM #60 cap 10/06/14 Oxymetazoline 0.05% Nasal Soln [Afrin -] 2 spray NS BID PRN #7 spraybtl Ranitidine [Zantac -] 150 mg PO BID #30 tablet 10/06/14 Tramadol HCl 50 mg PO Q6H #20 tablet MDD 200mg 01/08/17 Amlodipine Besylate [Norvasc -] 10 mg PO DAILY #30 tablet 03/19/17 Azithromycin 500 mg PO DAILY #5 tablet 03/19/17 Cefuroxime Axetil [Ceftin -] 500 mg PO BID #14 tablet 03/19/17 Hydralazine HCl 10 mg PO BID #60 tablet 03/19/17 Prednisone [Deltasone -] See Taper PO DAILY #30 tablet 03/19/17 Menthol/Zinc Oxide [Calmoseptine Ointment] 71 gm TP QID 03/20/17 Nystatin Powder [Nystop Topical Powder -] 15 gm TP BID 03/20/17 Review of Systems - Review of Systems Constitutional: reports: Lethargy, Weakness Eyes: reports: No Symptoms HENT: reports: No Symptoms Neck: reports: Stiffness Cardiovascular: reports: Shortness of Breath Respiratory: reports: Cough, SOB, Wheezing Gastrointestinal: reports: Nausea Genitourinary: reports: No Symptoms Musculoskeletal: reports: Back Pain Neurological: reports: No Symptoms Physical Examination Vital Signs: Vital Signs Period Temp Pulse Resp BP Sys/Bush Pulse Ox Last 24 Hr 97 F-98 F 64-89 18-26 119-166/45-73 94-97 Constitutional: Yes: Moderate Distress, Obese Eyes: Yes: Conjunctiva Clear, EOM Intact HENT: Yes: Atraumatic, Normocephalic Neck: Yes: Supple, Trachea Midline Cardiovascular: Yes: Regular Rate and Rhythm Respiratory: Yes: Diminished (air entry decreased b/l lung base) Gastrointestinal: Yes: Normal Bowel Sounds, Soft ...Rectal Exam: Yes: Deferred Musculoskeletal: Yes: Back Pain Neurological: Yes: Alert, Oriented ...Motor Strength: WNL Psychiatric: Yes: Alert Imaging - Results Chest X-ray: Report Reviewed Cat Scan: Report Reviewed Problem List - Problems (1) Pneumonia Assessment/Plan: Improving. Whit count improving. Continue IV abx. Pulmonary and ID follow up appreciated. Code(s): J18.9 - PNEUMONIA, UNSPECIFIED ORGANISM Qualifiers: Pneumonia type: due to unspecified organism Laterality: bilateral Lung location: lower lobe of lung Qualified Code(s): J18.9 - Pneumonia, unspecified organism (2) COPD exacerbation Assessment/Plan: With acute exacerbation. Improving. Continue O2 NC/Inhaled bronchodilators/Solumedrol. Pulmonary follow up appreciated. Code(s): J44.1 - CHRONIC OBSTRUCTIVE PULMONARY DISEASE W (ACUTE) EXACERBATION (3) YEISON (acute kidney injury) Assessment/Plan: Improving. Renal follow up appreciated. Code(s): N17.9 - ACUTE KIDNEY FAILURE, UNSPECIFIED (4) Acute respiratory failure Code(s): J96.00 - ACUTE RESPIRATORY FAILURE, UNSP W HYPOXIA OR HYPERCAPNIA Improving. Continue current management. (5) CHF (congestive heart failure) Assessment/Plan: Stable. Chest x ray improved. Cardiology follow up appreciated. Will continue current management. Code(s): I50.9 - HEART FAILURE, UNSPECIFIED Qualifiers: Congestive heart failure type: unspecified congestive heart failure type Congestive heart failure chronicity: unspecified congestive heart failure chronicity Qualified Code(s): I50.9 - Heart failure, unspecified (6) CVA (cerebral vascular accident) Assessment/Plan: stable. Aggrenox on hold because of GI bleed Code(s): I63.9 - CEREBRAL INFARCTION, UNSPECIFIED Qualifiers: CVA mechanism: unspecified Qualified Code(s): I63.9 - Cerebral infarction, unspecified (7) HTN (hypertension) Code(s): I10 - ESSENTIAL (PRIMARY) HYPERTENSION Qualifiers: Hypertension type: essential hypertension Qualified Code(s): I10 - Essential (primary) hypertension Reasonable control. Continue current meds. (8) Duodenitis Assessment/Plan: CT Scan shows duodenitis. Patient with nausea, abdominal discomfort. GI follow up appreciated. Code(s): K29.80 - DUODENITIS WITHOUT BLEEDING 9) GI Bleed: S/P Transfusion. Had brownish bowel movement in the morning. H/H down today. Will monitor. GI follow up appreciated. 35 minutes spent with the patient. Problem List - Problems (1) Pneumonia Code(s): J18.9 - PNEUMONIA, UNSPECIFIED ORGANISM Qualifiers: Pneumonia type: due to unspecified organism Laterality: bilateral Lung location: lower lobe of lung Qualified Code(s): J18.9 - Pneumonia, unspecified organism (2) COPD exacerbation Code(s): J44.1 - CHRONIC OBSTRUCTIVE PULMONARY DISEASE W (ACUTE) EXACERBATION (3) YEISON (acute kidney injury) Code(s): N17.9 - ACUTE KIDNEY FAILURE, UNSPECIFIED (4) Acute respiratory failure Code(s): J96.00 - ACUTE RESPIRATORY FAILURE, UNSP W HYPOXIA OR HYPERCAPNIA Qualifiers: Respiratory failure complication: hypoxia Qualified Code(s): J96.01 - Acute respiratory failure with hypoxia (5) CHF (congestive heart failure) Code(s): I50.9 - HEART FAILURE, UNSPECIFIED Qualifiers: Congestive heart failure type: unspecified congestive heart failure type Congestive heart failure chronicity: unspecified congestive heart failure chronicity Qualified Code(s): I50.9 - Heart failure, unspecified (6) CVA (cerebral vascular accident) Code(s): I63.9 - CEREBRAL INFARCTION, UNSPECIFIED Qualifiers: CVA mechanism: unspecified Qualified Code(s): I63.9 - Cerebral infarction, unspecified (7) HTN (hypertension) Code(s): I10 - ESSENTIAL (PRIMARY) HYPERTENSION Qualifiers: Hypertension type: essential hypertension Qualified Code(s): I10 - Essential (primary) hypertension (8) Duodenitis Code(s): K29.80 - DUODENITIS WITHOUT BLEEDING
[2017-03-24] MEDS: NYSTATIN POWDER 100,000 UNITS/GM - 15 GM TOPICAL POWDER TP SCH ×2 (11:00→22:47)
[2017-03-24] MEDS ORDERED: ALBUTEROL SO4 0.083% IH SOL 2.5 MG/3 ML VIAL.NEB. NEB PRN (11:20)
--- NOTE | 2017-03-24 12:02 | PN ---
Teaching Attending Note Name of Resident: Ayan Spears ATTENDING PHYSICIAN STATEMENT I saw and evaluated the patient. I reviewed the resident's note and discussed the case with the resident. I agree with the resident's findings and plan as documented. SUBJECTIVE: Pt seen and examined in the ICU. States breathing is better today but still visibly tachypneic at rest. +nonproductive cough. No fevers recorded. OBJECTIVE: Last Vital Signs Temp Pulse Resp BP Pulse Ox 97.4 F L 89 22 119/73 94 L 03/24/17 09:29 03/24/17 09:57 03/24/17 09:29 03/24/17 09:29 03/24/17 09:57 Intake & Output 03/21/17 03/22/17 03/23/17 03/24/17 23:59 23:59 23:59 23:59 Intake Total 760 1852 2040 370 Output Total 260 Balance 760 1852 1780 370 Weight 190 lb 11.2 oz 190 lb 6.4 oz 194 lb 9.6 oz Gen: tachypneic at rest Heart: RRR Lung: scattered rhonchi, wheezes Abd: soft, nontender Ext: no edema CBC, BMP 03/24/17 05:05 03/24/17 06:00 Active Medications Acetaminophen (Tylenol -) 650 mg PO Q4H PRN PRN Reason: FEVER OR PAIN Last Admin: 03/24/17 06:02 Dose: 650 mg Al Hydroxide/Mg Hydroxide (Mylanta Oral Suspension -) 30 ml PO Q6HPO [facility] Last Admin: 03/24/17 06:01 Dose: 30 ml Albuterol Sulfate (Ventolin 0.083% Nebulizer Soln -) 1 amp NEB Q4H PRN PRN Reason: SHORT OF BREATH/WHEEZING Albuterol/Ipratropium (Duoneb -) 1 amp NEB QIDR [facility] Last Admin: 03/24/17 11:08 Dose: 1 amp Amlodipine Besylate (Norvasc -) 10 mg PO DAILY [facility] Last Admin: 03/24/17 09:25 Dose: 10 mg Atorvastatin Calcium (Lipitor -) 10 mg PO [facility] Last Admin: 03/23/17 21:24 Dose: 10 mg Chlorhexidine Gluconate (Hibiclens For Decolonization -) 1 applic TP HS [facility] Last Admin: 03/23/17 21:24 Dose: 1 applic Cholecalciferol (Vitamin D3 -) 1,000 unit PO DAILY [facility] Last Admin: 03/24/17 10:15 Dose: 1,000 unit Cholestyramine Resin (Questran Light Packet -) 4 gm PO BID [facility] Last Admin: 03/24/17 10:08 Dose: 4 gm Guaifenesin (Mucinex -) 600 mg PO BID [facility] Last Admin: 03/24/17 09:26 Dose: 600 mg Hydralazine HCl (Apresoline -) 10 mg PO BID [facility] Last Admin: 03/24/17 10:08 Dose: 10 mg Pantoprazole Sodium 80 mg/ (Sodium Chloride) 100 mls @ 10 mls/hr IVPB Q10H [facility] PRN Reason: 8 MG/HR Last Admin: 03/24/17 02:27 Dose: 10 mls/hr Metronidazole (Flagyl 500mg Premixed Ivpb -) 100 mls @ 100 mls/hr IVPB Q8H-IV [facility] Last Admin: 03/24/17 09:23 Dose: 100 mls/hr Meropenem 1 gm/ Dextrose 100 mls @ 100 mls/hr IVPB Q8H-IV [facility] PRN Reason: Protocol Last Admin: 03/24/17 09:23 Dose: 100 mls/hr Levetiracetam 250 mg/ (Levetiracetam 500 mg) 750 mg PO BID [facility] Last Admin: 03/24/17 10:08 Dose: 750 mg Loratadine (Claritin -) 10 mg PO DAILY [facility] Last Admin: 03/24/17 09:25 Dose: 10 mg Methylprednisolone Sodium Succinate (Solu-Medrol -) 40 mg IVPB Q8H-IV [facility] Last Admin: 03/24/17 09:24 Dose: 40 mg Mometasone Furoate (Asmanex 220mcg -) 1 puff IH HS [facility] Last Admin: 03/23/17 22:22 Dose: 1 puff Montelukast Sodium (Singulair -) 10 mg PO HS [facility] Last Admin: 03/23/17 21:38 Dose: 10 mg Multi-Ingredient Ointment (Zinc Oxide) 1 applic TP TID [facility] Last Admin: 03/24/17 06:01 Dose: 1 applic Mupirocin (Bactroban Ointment (For Decolonization) -) 1 applic NS BID [facility] Stop: 03/26/17 21:59 Last Admin: 03/24/17 10:17 Dose: 1 applic Nitroglycerin (Nitrostat -) 0.4 mg SL [id number] PRN PRN Reason: CHEST PAIN Non-Formulary Medication (Lipase/Protease/Amylase [Pancrease Ec Capsule]) 4 each PO DAILY [facility] Nystatin (Nystop Powder -) 1 applic TP BID [facility] Last Admin: 03/23/17 22:22 Dose: 1 applic Oxymetazoline HCl (Afrin -) 2 spray NS BID PRN PRN Reason: NASAL CONGESTION Last Admin: 03/21/17 11:28 Dose: 2 spray Piperacillin Sod/Tazobactam Sod (Zosyn 3.375gm Ivpb (Pre-Docked)) 3.375 gm IVPB Q8H-IV [facility] PRN Reason: Protocol Solifenacin (Vesicare -) 10 mg PO DAILY [facility] Last Admin: 03/24/17 09:20 Dose: 10 mg Tamsulosin HCl (Flomax -) 0.4 mg PO DAILY [facility] Last Admin: 03/24/17 09:25 Dose: 0.4 mg ASSESSMENT AND PLAN: Acute on Chronic Hypoxic Respiratory Failure Pneumonia COPD CAD LV Diastolic Dysfunction GI Bleed Anemia Lymphoma - antibiotics per ID - f/u cultures - continue medrol - inhaled bronchodilators - O2 to keep SpO2 >90% - aspiration precautions - on protonix gtt - monitor H/H, signs of bleeding - BiPAP as needed to assist in work of breathing - DVT prophylaxis - continue ICU monitoring critical care time spent in reviewing chart, evaluating patient and formulating plan 35 min
--- NOTE | 2017-03-24 13:31 | PN ---
Physical Exam: SUBJECTIVE: Patient seen and examined at bedside. No overnight events. No new complaints. Feels better overall. Breathing is improved. Denies CP,NAVARRETE, palpitations, N/V. OBJECTIVE: Vital Signs Period Temp Pulse Resp BP Sys/Bush Pulse Ox Last 24 Hr 97 F-98 F 64-89 18-26 119-166/45-73 94-97 GENERAL: awake and alert, moderate distress. HEAD: AT/NC EYES: PERRL, EOMI, sclera anicteric, conjunctiva clear. No ptosis. NECK:Supple, no jvd LUNGS:scattered rhonci, expiratory wheezing. HEART: RRR, S1S2 ABDOMEN: Soft,obese , epigastric tenderness, mild distention. EXTREMITIES: 2+ pulses, warm, well-perfused, 1+ Lower ext. edema. Laboratory Results - last 24 hr 03/24/17 03/24/17 05:05 06:00 WBC 14.9 H RBC 2.79 L Hgb 8.2 L Hct 25.2 L MCV 90.5 MCH 29.6 MCHC 32.7 RDW 16.5 H Plt Count 175 MPV 7.5 Neutrophils % 94.0 H Lymphocytes % 2.0 L D Eosinophils % 1.0 D Band Neutrophils 3.0 Platelet Estimate Adequate Sodium 144 Potassium 4.9 Chloride 112 H Carbon Dioxide 26 Anion Gap 6 L BUN 42 H Creatinine 1.0 Creat Clearance w eGFR > 60 Random Glucose 150 H Calcium 7.8 L Phosphorus 2.6 Magnesium 2.7 H Total Bilirubin 0.4 AST 12 L ALT 20 Alkaline Phosphatase 47 Total Protein 4.8 L Albumin 2.4 L Active Medications Generic Name Dose Route Start Last Admin Trade Name Aaronq PRN Reason Stop Dose Admin Acetaminophen 650 mg 03/21/17 17:00 03/24/17 06:02 Tylenol - PO 650 mg Q4H PRN Administration FEVER OR PAIN Al Hydroxide/Mg Hydroxide 30 ml 03/23/17 12:00 03/24/17 06:01 Mylanta Oral Suspension - PO 30 ml Q6HPO [facility] Administration Albuterol Sulfate 1 amp 03/24/17 11:20 Ventolin 0.083% Nebulizer Soln - NEB Q4H PRN SHORT OF BREATH/WHEEZING Albuterol/Ipratropium 1 amp 03/21/17 12:00 03/24/17 11:08 Duoneb - NEB 1 amp QIDR [facility] Administration Amlodipine Besylate 10 mg 03/21/17 10:00 03/24/17 09:25 Norvasc - PO 10 mg DAILY [facility] Administration Atorvastatin Calcium 10 mg 03/21/17 22:00 03/23/17 21:24 Lipitor - PO 10 mg HS [facility] Administration Chlorhexidine Gluconate 1 applic 03/21/17 22:00 03/23/17 21:24 Hibiclens For Decolonization - TP 1 applic HS [facility] Administration Cholecalciferol 1,000 unit 03/21/17 10:00 03/24/17 10:15 Vitamin D3 - PO 1,000 unit DAILY [facility] Administration Cholestyramine Resin 4 gm 03/21/17 05:58 03/24/17 10:08 Questran Light Packet - PO 4 gm BID [facility] Administration Guaifenesin 600 mg 03/21/17 10:00 03/24/17 09:26 Mucinex - PO 600 mg BID [facility] Administration Hydralazine HCl 10 mg 03/22/17 11:15 03/24/17 10:08 Apresoline - PO 10 mg BID [facility] Administration Pantoprazole Sodium 80 mg/ 100 mls @ 10 mls/hr 03/21/17 14:45 03/24/17 02:27 Sodium Chloride IVPB 10 mls/hr Q10H [facility] Administration 8 MG/HR Metronidazole 100 mls @ 100 mls/hr 03/21/17 15:15 03/24/17 09:23 Flagyl 500mg Premixed Ivpb - IVPB 100 mls/hr Q8H-IV [facility] Administration Meropenem 1 gm/ Dextrose 100 mls @ 100 mls/hr 03/21/17 15:15 03/24/17 09:23 IVPB 100 mls/hr Q8H-IV [facility] Administration Protocol Levetiracetam 250 mg/ 750 mg 03/21/17 10:00 03/24/17 10:08 Levetiracetam 500 mg PO 750 mg BID [facility] Administration Loratadine 10 mg 03/21/17 10:00 03/24/17 09:25 Claritin - PO 10 mg DAILY [facility] Administration Methylprednisolone Sodium Succinate 40 mg 03/21/17 10:00 03/24/17 09:24 Solu-Medrol - IVPB 40 mg Q8H-IV [facility] Administration Mometasone Furoate 1 puff 03/21/17 22:00 03/23/17 22:22 Asmanex 220mcg - IH 1 puff HS [facility] Administration Montelukast Sodium 10 mg 03/21/17 22:00 03/23/17 21:38 Singulair - PO 10 mg HS [facility] Administration Multi-Ingredient Ointment 1 applic 03/21/17 14:00 03/24/17 06:01 Zinc Oxide TP 1 applic TID [facility] Administration Mupirocin 1 applic 03/21/17 22:00 03/24/17 10:17 Bactroban Ointment (For Decolonization) - NS 03/26/17 21:59 1 applic BID [facility] Administration Nitroglycerin 0.4 mg 03/22/17 18:41 Nitrostat - SL [id number] PRN CHEST PAIN Non-Formulary Medication 4 each 03/21/17 10:00 Lipase/Protease/Amylase [Pancrease Ec Capsule] PO DAILY [facility] Nystatin 1 applic 03/21/17 10:00 03/23/17 22:22 Nystop Powder - TP 1 applic BID [facility] Administration Oxymetazoline HCl 2 spray 03/20/17 23:00 03/21/17 11:28 Afrin - NS 2 spray BID PRN Administration NASAL CONGESTION Piperacillin Sod/Tazobactam Sod 3.375 gm 03/21/17 18:00 Zosyn 3.375gm Ivpb (Pre-Docked) IVPB Q8H-IV [facility] Protocol Solifenacin 10 mg 03/21/17 10:00 03/24/17 09:20 Vesicare - PO 10 mg DAILY [facility] Administration Tamsulosin HCl 0.4 mg 03/21/17 10:00 03/24/17 09:25 Flomax - PO 0.4 mg DAILY [facility] Administration ASSESSMENT/PLAN: 89 year old male with significant PMHx of COPD, CHF, CAD, COPD, CVA, brought to the emergency room by EMS c/o having loose bowel movements and nausea. Admitted for acute GI bleed. Problem List - Problems (1) YEISON (acute kidney injury) Assessment/Plan: * Kidney function is at baseline. * No intervention at this time. * Avoid nephrotoxins. (2) Duodenitis Assessment/Plan: * GI bleed. * Not a candidate for scope, * Evaluated by GI. (3) COPD exacerbation Assessment/Plan: * Continue supplemental O2 * Bipap PRN * taper steroids * Continue Singulair * Duoneb QID (4) HTN (hypertension) Assessment/Plan: * Continue Amlodipine 5mg PO daily * started on Hydralazine 10mg BID (5) CHF (congestive heart failure) Assessment/Plan: * Echo pending * Cardio consult appreciated Visit type - Emergency Visit Emergency Visit: Yes ED Registration Date: 03/21/17 Care time: The patient presented to the Emergency Department on the above date and was hospitalized for further evaluation of their emergent condition. - New Patient This patient is new to me today: No - Critical Care Critical Care patient: No - Discharge Referral Referred to [facility] No
--- NOTE | 2017-03-24 13:49 | PN ---
Physical Exam: SUBJECTIVE: Patient seen and examined at bedside. Pt states his breathing is not improved at this time compared to when he came in and state he has a cough with no sputum production. Pt also c/o chronic chest pain and pain is described as sharp with no radiation. Otherwise pt has no new complaints. Pt denies N/V/F/ C. No acute events overnight. OBJECTIVE: Vital Signs Temperature 97.4 F L 03/24/17 10:00 Pulse Rate 74 03/24/17 12:00 Respiratory Rate 22 03/24/17 12:00 Blood Pressure 125/55 03/24/17 12:00 O2 Sat by Pulse Oximetry (%) 94 L 03/24/17 09:57 GENERAL: The patient is awake, alert, and in no acute distress. HEAD: Normal with no signs of trauma. EYES: extraocular movements intact, sclera anicteric ENT: Ears normal, nares patent NECK: Trachea midline LUNGS: b/l wheezing HEART: Regular rate and rhythm, S1, S2 ABDOMEN: Soft, nontender, nondistended, normoactive bowel sounds EXTREMITIES: warm, well-perfused, no edema. NEUROLOGICAL: Normal speech, gait not observed. PSYCH: Normal mood, normal affect. SKIN: Warm, dry Laboratory Results - last 24 hr 03/24/17 03/24/17 05:05 06:00 WBC 14.9 H RBC 2.79 L Hgb 8.2 L Hct 25.2 L MCV 90.5 MCH 29.6 MCHC 32.7 RDW 16.5 H Plt Count 175 MPV 7.5 Neutrophils % 94.0 H Lymphocytes % 2.0 L D Eosinophils % 1.0 D Band Neutrophils 3.0 Platelet Estimate Adequate Sodium 144 Potassium 4.9 Chloride 112 H Carbon Dioxide 26 Anion Gap 6 L BUN 42 H Creatinine 1.0 Creat Clearance w eGFR > 60 Random Glucose 150 H Calcium 7.8 L Phosphorus 2.6 Magnesium 2.7 H Total Bilirubin 0.4 AST 12 L ALT 20 Alkaline Phosphatase 47 Total Protein 4.8 L Albumin 2.4 L Imaging: CXR: no evidence of CHF, pneumothorax, or large pleural effusion. No airspace opacities seen in the visualized lungs. Active Medications Generic Name Dose Route Start Last Admin Trade Name Freq PRN Reason Stop Dose Admin Acetaminophen 650 mg 03/21/17 17:00 03/24/17 06:02 Tylenol - PO 650 mg Q4H PRN Administration FEVER OR PAIN Al Hydroxide/Mg Hydroxide 30 ml 03/23/17 12:00 03/24/17 06:01 Mylanta Oral Suspension - PO 30 ml Q6HPO [facility] Administration Albuterol Sulfate 1 amp 03/24/17 11:20 Ventolin 0.083% Nebulizer Soln - NEB Q4H PRN SHORT OF BREATH/WHEEZING Albuterol/Ipratropium 1 amp 03/21/17 12:00 03/24/17 11:08 Duoneb - NEB 1 amp QIDR [facility] Administration Amlodipine Besylate 10 mg 03/21/17 10:00 03/24/17 09:25 Norvasc - PO 10 mg DAILY [facility] Administration Atorvastatin Calcium 10 mg 03/21/17 22:00 03/23/17 21:24 Lipitor - PO 10 mg HS C[facility] Administration Chlorhexidine Gluconate 1 applic 03/21/17 22:00 03/23/17 21:24 Hibiclens For Decolonization - TP 1 applic HS [facility] Administration Cholecalciferol 1,000 unit 03/21/17 10:00 03/24/17 10:15 Vitamin D3 - PO 1,000 unit DAILY [facility] Administration Cholestyramine Resin 4 gm 03/21/17 05:58 03/24/17 10:08 Questran Light Packet - PO 4 gm BID C[facility] Administration Guaifenesin 600 mg 03/21/17 10:00 03/24/17 09:26 Mucinex - PO 600 mg BID [facility] Administration Hydralazine HCl 10 mg 03/22/17 11:15 03/24/17 10:08 Apresoline - PO 10 mg BID [facility] Administration Pantoprazole Sodium 80 mg/ 100 mls @ 10 mls/hr 03/21/17 14:45 03/24/17 02:27 Sodium Chloride IVPB 10 mls/hr Q10H [facility] Administration 8 MG/HR Metronidazole 100 mls @ 100 mls/hr 03/21/17 15:15 03/24/17 09:23 Flagyl 500mg Premixed Ivpb - IVPB 100 mls/hr Q8H-IV [facility] Administration Meropenem 1 gm/ Dextrose 100 mls @ 100 mls/hr 03/21/17 15:15 03/24/17 09:23 IVPB 100 mls/hr Q8H-IV [facility] Administration Protocol Levetiracetam 250 mg/ 750 mg 03/21/17 10:00 03/24/17 10:08 Levetiracetam 500 mg PO 750 mg BID [facility] Administration Loratadine 10 mg 03/21/17 10:00 03/24/17 09:25 Claritin - PO 10 mg DAILY [facility] Administration Methylprednisolone Sodium Succinate 40 mg 03/21/17 10:00 03/24/17 09:24 Solu-Medrol - IVPB 40 mg Q8H-IV [facility] Administration Mometasone Furoate 1 puff 03/21/17 22:00 03/23/17 22:22 Asmanex 220mcg - IH 1 puff HS [facility] Administration Montelukast Sodium 10 mg 03/21/17 22:00 03/23/17 21:38 Singulair - PO 10 mg HS [facility] Administration Multi-Ingredient Ointment 1 applic 03/21/17 14:00 03/24/17 06:01 Zinc Oxide TP 1 applic TID C[facility] Administration Mupirocin 1 applic 03/21/17 22:00 03/24/17 10:17 Bactroban Ointment (For Decolonization) - NS 03/26/17 21:59 1 applic BID [facility] Administration Nitroglycerin 0.4 mg 03/22/17 18:41 Nitrostat - SL [id number] PRN CHEST PAIN Non-Formulary Medication 4 each 03/21/17 10:00 Lipase/Protease/Amylase [Pancrease Ec Capsule] PO DAILY [facility] Nystatin 1 applic 03/21/17 10:00 03/23/17 22:22 Nystop Powder - TP 1 applic BID [facility] Administration Oxymetazoline HCl 2 spray 03/20/17 23:00 03/21/17 11:28 Afrin - NS 2 spray BID PRN Administration NASAL CONGESTION Piperacillin Sod/Tazobactam Sod 3.375 gm 03/21/17 18:00 Zosyn 3.375gm Ivpb (Pre-Docked) IVPB Q8H-IV C[facility] Protocol Solifenacin 10 mg 03/21/17 10:00 03/24/17 09:20 Vesicare - PO 10 mg DAILY [facility] Administration Tamsulosin HCl 0.4 mg 03/21/17 10:00 03/24/17 09:25 Flomax - PO 0.4 mg DAILY [facility] Administration ASSESSMENT/PLAN: 89 y/o M w/PMH of HTN, HLD, CAD, dCHF, CVA/TIA, COPD, prostate ca, PAD presented to ER with SOB and admitted for SOB/acute respiratory failure secondary to pneumonia with superimposed COPD exacerbation. Currently in ICU. -Neuro -mental status intact -Pulm -Acute on chronic hypoxic respiratory failure secondary to PNA w/ superimposed acute on chronic COPD exacerbation -c/w methylprednisone 40 mg iv q8h, asmanex, duo-neb QIDR, alb nebs q4h prn, singulair -MSSA pna, pending final report -meropenem as per ID -ID on board -O2 supplementation to keep O2 saturation above 90%, bipap PRN -GI -GI bleed, subsiding, H/H stable, continue to monitor -GI on board -Protonix drip Renal -YEISON - BUN 42, Cr 1 -renal on board -Cardio -chronic diastolic CHF -stale at this time -HTN -c/w hydralazine 10 mg po bid, norvasc 10 mg po qd -Not on BB due to conduction abnormality -CAD -c/w atorvastatin 10 mg po qhs -Anemia, normocytic -H/H stable at this time, will continue to monitor -Prophylaxis -DVT ppx : SCDs -GI : on protonix drip -FEN -not on fluids at this time -hyperchloremia- monitor -full liquid, low sodium diet -Code status: -DNR/DNI -Dispo: -continue to monitor in ICU Visit type - Emergency Visit Emergency Visit: Yes ED Registration Date: 03/21/17 Care time: The patient presented to the Emergency Department on the above date and was hospitalized for further evaluation of their emergent condition. - New Patient This patient is new to me today: Yes Date on this admission: 03/24/17 - Critical Care Critical Care patient: Yes Total Critical Care Time (in minutes): 40 Critical Care Statement: The care of this patient involved high complexity decision making to prevent further life threatening deterioration of the patient 's condition and/or to evalute & treat vital organ system(s) failure or risk of failure.
--- NOTE | 2017-03-24 13:50 | EKG ---
Test Reason : Blood Pressure : / mmHG Vent. Rate : 081 BPM Atrial Rate : 081 BPM P-R Int : 226 ms QRS Dur : 140 ms QT Int : 428 ms P-R-T Axes : -12 -25 -15 degrees QTc Int : 497 ms SINUS RHYTHM WITH 1ST DEGREE A-V BLOCK RIGHT BUNDLE BRANCH BLOCK ABNORMAL ECG WHEN COMPARED WITH ECG OF 20-MAR-2017 17:31, NO SIGNIFICANT CHANGE WAS FOUND Confirmed by NARCISO SALAZAR MD ([id number]) on 03/24/2017 1:50:20 PM Referred By: Confirmed By:NARCISO SALAZAR MD
--- NOTE | 2017-03-24 14:03 | PN ---
Teaching Attending Note Name of Resident: Ramiro Harley ATTENDING PHYSICIAN STATEMENT I saw and evaluated the patient. I reviewed the resident's note and discussed the case with the resident. I agree with the resident's findings and plan as documented. Current Medications Generic Name Dose Route Start Last Admin Trade Name Freq PRN Reason Stop Dose Admin Acetaminophen 650 mg 03/21/17 17:00 03/24/17 06:02 Tylenol - PO 650 mg Q4H PRN Administration FEVER OR PAIN Al Hydroxide/Mg Hydroxide 30 ml 03/23/17 12:00 03/24/17 06:01 Mylanta Oral Suspension - PO 30 ml Q6HPO [facility]Y Administration Albuterol Sulfate 1 amp 03/24/17 11:20 Ventolin 0.083% Nebulizer Soln - NEB Q4H PRN SHORT OF BREATH/WHEEZING Albuterol/Ipratropium 1 amp 03/21/17 12:00 03/24/17 11:08 Duoneb - NEB 1 amp QIDR [facility]Y Administration Amlodipine Besylate 10 mg 03/21/17 10:00 03/24/17 09:25 Norvasc - PO 10 mg DAILY [facility] Administration Atorvastatin Calcium 10 mg 03/21/17 22:00 03/23/17 21:24 Lipitor - PO 10 mg HS CAREY Administration Chlorhexidine Gluconate 1 applic 03/21/17 22:00 03/23/17 21:24 Hibiclens For Decolonization - TP 1 applic HS C[facility]Y Administration Cholecalciferol 1,000 unit 03/21/17 10:00 03/24/17 10:15 Vitamin D3 - PO 1,000 unit DAILY [facility] Administration Cholestyramine Resin 4 gm 03/21/17 05:58 03/24/17 10:08 Questran Light Packet - PO 4 gm BID C[facility]Y Administration Guaifenesin 600 mg 03/21/17 10:00 03/24/17 09:26 Mucinex - PO 600 mg BID [facility] Administration Hydralazine HCl 10 mg 03/22/17 11:15 03/24/17 10:08 Apresoline - PO 10 mg BID C[facility] Administration Pantoprazole Sodium 80 mg/ 100 mls @ 10 mls/hr 03/21/17 14:45 03/24/17 02:27 Sodium Chloride IVPB 10 mls/hr Q10H C[facility]Y Administration 8 MG/HR Metronidazole 100 mls @ 100 mls/hr 03/21/17 15:15 03/24/17 09:23 Flagyl 500mg Premixed Ivpb - IVPB 100 mls/hr Q8H-IV [facility] Administration Meropenem 1 gm/ Dextrose 100 mls @ 100 mls/hr 03/21/17 15:15 03/24/17 09:23 IVPB 100 mls/hr Q8H-IV C[facility]Y Administration Protocol Levetiracetam 250 mg/ 750 mg 03/21/17 10:00 03/24/17 10:08 Levetiracetam 500 mg PO 750 mg BID C[facility] Administration Loratadine 10 mg 03/21/17 10:00 03/24/17 09:25 Claritin - PO 10 mg DAILY [facility] Administration Methylprednisolone Sodium Succinate 40 mg 03/21/17 10:00 03/24/17 09:24 Solu-Medrol - IVPB 40 mg Q8H-IV [facility]Y Administration Mometasone Furoate 1 puff 03/21/17 22:00 03/23/17 22:22 Asmanex 220mcg - IH 1 puff HS C[facility]Y Administration Montelukast Sodium 10 mg 03/21/17 22:00 03/23/17 21:38 Singulair - PO 10 mg HS C[facility]Y Administration Multi-Ingredient Ointment 1 applic 03/21/17 14:00 03/24/17 06:01 Zinc Oxide TP 1 applic TID C[facility]Y Administration Mupirocin 1 applic 03/21/17 22:00 03/24/17 10:17 Bactroban Ointment (For Decolonization) - NS 03/26/17 21:59 1 applic BID [facility] Administration Nitroglycerin 0.4 mg 03/22/17 18:41 Nitrostat - SL [id number] PRN CHEST PAIN Non-Formulary Medication 4 each 03/21/17 10:00 Lipase/Protease/Amylase [Pancrease Ec Capsule] PO DAILY [facility] Nystatin 1 applic 03/21/17 10:00 03/23/17 22:22 Nystop Powder - TP 1 applic BID [facility] Administration Oxymetazoline HCl 2 spray 03/20/17 23:00 03/21/17 11:28 Afrin - NS 2 spray BID PRN Administration NASAL CONGESTION Solifenacin 10 mg 03/21/17 10:00 03/24/17 09:20 Vesicare - PO 10 mg DAILY [facility] Administration Tamsulosin HCl 0.4 mg 03/21/17 10:00 03/24/17 09:25 Flomax - PO 0.4 mg DAILY CAREY Administration cardio s1s2 pulm ronchi, tachypnea GI soft ext trace edema neuro awake Impression 1. YEISON has been resolving 2. Sepsis 3. hx CHF 4. COPD 5. CAD 6. hx CVA 7. anemia 8. hyperkalemia 9. GI bleed Plan - renal function is stable - follow up echo - potassium is stable - discussed with resident - will follow PRN - monitor hg
[2017-03-24 14:10] LABS: SERUM IRON 61 ug/dL (38-169); TOTAL IRON BINDING CAPACITY 260 ug/dL (250-450); UIBC 199 ug/dL (111-343)
--- NOTE | 2017-03-24 15:49 | PN ---
GI Progress Note Subjective: GASTROENTEROLOGY SEEN IN THE ICU TODAY BLEEDING HAS SLOWED OR STOPPED BROWN LIQUID STOOL TODAY WITH MILD STREAKS OF [place] STILL TACHYPNEIC AT REST, EXHAUSTED AFTER BEDSIDE PT H&H OK, ON FULL LIQUID DIET, NO ABDOMINAL PAIN - Objective Vital Signs: Vital Signs Temperature 97.6 F 03/24/17 14:00 Pulse Rate 78 03/24/17 14:00 Respiratory Rate 22 03/24/17 14:00 Blood Pressure 133/49 03/24/17 14:00 O2 Sat by Pulse Oximetry (%) 94 L 03/24/17 09:57 Constitutional: Other (TACHYPNEA) Eyes: Yes: Conjunctiva Clear HENT: Yes: Normocephalic Neck: Yes: Supple Cardiovascular: Yes: Regular Rate and Rhythm Respiratory: Yes: Rhonchi, Tachypnea Gastrointestinal Inspection: Yes: WNL ...Auscultate: Yes: Normoactive Bowel Sounds ...Palpate: Yes: Soft Extremities: Yes: WNL Labs: CBC, BMP 03/24/17 05:05 03/24/17 06:00 INR, PTT INR 1.03 (0.82-1.09) 03/22/17 05:15 Problem List - Problems (1) GI bleed Assessment/Plan: RESOLVING, FULL LIQUID DIET, D/C PROTONIX GTT START IV PROTONIX BID SOME LOOSE STOOLS C DIFF NEG 3 DAYS AGO, CK STOOL FAT AND WBC FOLLOW CBC STILL NOT GOOD CANDIDATE FOR SCOPES KANE SMALLS MD ICU TIME :35 MINUTES Code(s): K92.2 - GASTROINTESTINAL HEMORRHAGE, UNSPECIFIED (2) Esophageal dysmotility Code(s): K22.4 - DYSKINESIA OF ESOPHAGUS (3) COPD exacerbation Code(s): J44.1 - CHRONIC OBSTRUCTIVE PULMONARY DISEASE W (ACUTE) EXACERBATION (4) Duodenitis Code(s): K29.80 - DUODENITIS WITHOUT BLEEDING (5) Peripheral arterial disease Code(s): I73.9 - PERIPHERAL VASCULAR DISEASE, UNSPECIFIED (6) Pneumonia Code(s): J18.9 - PNEUMONIA, UNSPECIFIED ORGANISM Qualifiers: Pneumonia type: due to unspecified organism Laterality: bilateral Lung location: lower lobe of lung Qualified Code(s): J18.9 - Pneumonia, unspecified organism (7) Respiratory distress Code(s): R06.00 - DYSPNEA, UNSPECIFIED (8) Thoracic aneurysm without mention of rupture Code(s): I71.2 - THORACIC AORTIC ANEURYSM, WITHOUT RUPTURE Qualifiers: Presence of rupture: without rupture Qualified Code(s): I71.2 - Thoracic aortic aneurysm, without rupture (9) Acute respiratory failure Code(s): J96.00 - ACUTE RESPIRATORY FAILURE, UNSP W HYPOXIA OR HYPERCAPNIA Qualifiers: Respiratory failure complication: hypoxia Qualified Code(s): J96.01 - Acute respiratory failure with hypoxia (10) CHF (congestive heart failure) Code(s): I50.9 - HEART FAILURE, UNSPECIFIED Qualifiers: Congestive heart failure type: unspecified congestive heart failure type Congestive heart failure chronicity: unspecified congestive heart failure chronicity Qualified Code(s): I50.9 - Heart failure, unspecified (11) CVA (cerebral vascular accident) Code(s): I63.9 - CEREBRAL INFARCTION, UNSPECIFIED Qualifiers: CVA mechanism: unspecified Qualified Code(s): I63.9 - Cerebral infarction, unspecified
--- NOTE | 2017-03-24 19:02 | PN ---
Progress Note, Physician History of Present Illness: stable sob off and on gi note noted looks stable from there point of view - Current Medication List Current Medications: Active Medications Acetaminophen (Tylenol -) 650 mg PO Q4H PRN PRN Reason: FEVER OR PAIN Last Admin: 03/24/17 16:48 Dose: 650 mg Al Hydroxide/Mg Hydroxide (Mylanta Oral Suspension -) 30 ml PO Q6HPO CAREY Last Admin: 03/24/17 18:38 Dose: 30 ml Albuterol Sulfate (Ventolin 0.083% Nebulizer Soln -) 1 amp NEB Q4H PRN PRN Reason: SHORT OF BREATH/WHEEZING Albuterol/Ipratropium (Duoneb -) 1 amp NEB QIDR [facility] Last Admin: 03/24/17 17:12 Dose: 1 amp Amlodipine Besylate (Norvasc -) 10 mg PO DAILY [facility] Last Admin: 03/24/17 09:25 Dose: 10 mg Atorvastatin Calcium (Lipitor -) 10 mg PO HS [facility] Last Admin: 03/23/17 21:24 Dose: 10 mg Chlorhexidine Gluconate (Hibiclens For Decolonization -) 1 applic TP HS [facility] Last Admin: 03/23/17 21:24 Dose: 1 applic Cholecalciferol (Vitamin D3 -) 1,000 unit PO DAILY [facility] Last Admin: 03/24/17 10:15 Dose: 1,000 unit Cholestyramine Resin (Questran Light Packet -) 4 gm PO BID [facility] Last Admin: 03/24/17 10:08 Dose: 4 gm Guaifenesin (Mucinex -) 600 mg PO BID [facility] Last Admin: 03/24/17 09:26 Dose: 600 mg Hydralazine HCl (Apresoline -) 10 mg PO BID [facility] Last Admin: 03/24/17 10:08 Dose: 10 mg Metronidazole (Flagyl 500mg Premixed Ivpb -) 100 mls @ 100 mls/hr IVPB Q8H-IV [facility] Last Admin: 03/24/17 18:38 Dose: 100 mls/hr Meropenem 1 gm/ Dextrose 100 mls @ 100 mls/hr IVPB Q8H-IV [facility] PRN Reason: Protocol Last Admin: 03/24/17 18:38 Dose: 100 mls/hr Pantoprazole Sodium (Protonix 40mg Ivpb (Pre-Docked)) 100 mls @ 200 mls/hr IVPB BID [facility] Levetiracetam 250 mg/ (Levetiracetam 500 mg) 750 mg PO BID [facility] Last Admin: 03/24/17 10:08 Dose: 750 mg Loratadine (Claritin -) 10 mg PO DAILY [facility] Last Admin: 03/24/17 09:25 Dose: 10 mg Methylprednisolone Sodium Succinate (Solu-Medrol -) 40 mg IVPB Q8H-IV [facility] Last Admin: 03/24/17 18:43 Dose: 40 mg Mometasone Furoate (Asmanex 220mcg -) 1 puff IH HS [facility] Last Admin: 03/23/17 22:22 Dose: 1 puff Montelukast Sodium (Singulair -) 10 mg PO HS [facility] Last Admin: 03/23/17 21:38 Dose: 10 mg Multi-Ingredient Ointment (Zinc Oxide) 1 applic TP TID [facility] Last Admin: 03/24/17 15:00 Dose: 1 applic Mupirocin (Bactroban Ointment (For Decolonization) -) 1 applic NS BID [facility] Stop: 03/26/17 21:59 Last Admin: 03/24/17 10:17 Dose: 1 applic Nitroglycerin (Nitrostat -) 0.4 mg SL [id number] PRN PRN Reason: CHEST PAIN Non-Formulary Medication (Lipase/Protease/Amylase [Pancrease Ec Capsule]) 4 each PO DAILY [facility] Nystatin (Nystop Powder -) 1 applic TP BID [facility] Last Admin: 03/24/17 11:00 Dose: 1 applic Oxymetazoline HCl (Afrin -) 2 spray NS BID PRN PRN Reason: NASAL CONGESTION Last Admin: 03/21/17 11:28 Dose: 2 spray Solifenacin (Vesicare -) 10 mg PO DAILY [facility] Last Admin: 03/24/17 09:20 Dose: 10 mg Tamsulosin HCl (Flomax -) 0.4 mg PO DAILY [facility] Last Admin: 03/24/17 09:25 Dose: 0.4 mg - Objective Vital Signs: Vital Signs Temperature 97.8 F 03/24/17 18:00 Pulse Rate 80 03/24/17 18:00 Respiratory Rate 26 H 03/24/17 18:00 Blood Pressure 135/50 03/24/17 18:00 O2 Sat by Pulse Oximetry (%) 94 L 03/24/17 09:57 Constitutional: Yes: Calm, Mild Distress Cardiovascular: Yes: Regular Rate and Rhythm Respiratory: Yes: Regular, On Nasal O2, Poor Air Entry Gastrointestinal: Yes: Normal Bowel Sounds, Soft Musculoskeletal: Yes: Other Extremities: Yes: Other Edema: LLE: Trace, RLE: Trace Neurological: Yes: Alert, Oriented Psychiatric: Yes: Alert, Oriented Labs: CBC, BMP 03/24/17 05:05 03/24/17 06:00 INR, PTT INR 1.03 (0.82-1.09) 03/22/17 05:15 Assessment/Plan Problem List - Problems (1) Pneumonia Code(s): J18.9 - PNEUMONIA, UNSPECIFIED ORGANISM Qualifiers: Pneumonia type: due to unspecified organism Laterality: bilateral Lung location: lower lobe of lung Qualified Code(s): J18.9 - Pneumonia, unspecified organism (2) COPD exacerbation Code(s): J44.1 - CHRONIC OBSTRUCTIVE PULMONARY DISEASE W (ACUTE) EXACERBATION (3) YEISON (acute kidney injury) Code(s): N17.9 - ACUTE KIDNEY FAILURE, UNSPECIFIED (4) Acute respiratory failure Code(s): J96.00 - ACUTE RESPIRATORY FAILURE, UNSP W HYPOXIA OR HYPERCAPNIA (5) CHF (congestive heart failure) Code(s): I50.9 - HEART FAILURE, UNSPECIFIED Qualifiers: Congestive heart failure type: unspecified congestive heart failure type Congestive heart failure chronicity: unspecified congestive heart failure chronicity Qualified Code(s): I50.9 - Heart failure, unspecified (6) CVA (cerebral vascular accident) Code(s): I63.9 - CEREBRAL INFARCTION, UNSPECIFIED Qualifiers: CVA mechanism: unspecified Qualified Code(s): I63.9 - Cerebral infarction, unspecified (7) HTN (hypertension) Code(s): I10 - ESSENTIAL (PRIMARY) HYPERTENSION Qualifiers: Hypertension type: essential hypertension Qualified Code(s): I10 - Essential (primary) hypertension (8) Duodenitis Code(s): K29.80 - DUODENITIS WITHOUT BLEEDING plan mssa pneumonia will stop meropenam will switch to cefazolin rest continue as per primary cc time 40 min
[2017-03-24] MEDS ORDERED: ACETAMINOPHEN 325 MG TABLET (FP) ONE (21:13)
[2017-03-24] MEDS: MONTELUKAST NA 10 MG TABLET PO SCH (21:23)
[2017-03-24] MEDS: ATORVASTATIN CA 10 MG TABLET (FP) PO SCH (21:23)
[2017-03-24] MEDS: CHLORHEXIDINE GLUCONATE 4% CLEANSER FOR DECOLONIZATION TP SCH (21:24)
[2017-03-24] MEDS: PANTOPRAZOLE SODIUM 100 ML IVPB SCH (21:29)
[2017-03-24] MEDS: MOMETASONE FUROATE 220 MCG/IH INHALER IH SCH (21:32)
[2017-03-25] MEDS: CEFAZOLIN (PRE-DOCKED) 50 ML IVPB SCH ×2 (01:40→09:28)
[2017-03-25] MEDS: METRONIDAZOLE 500 MG PREMIXED 100 ML IVPB SCH ×2 (01:40→10:09)
[2017-03-25] MEDS: methylPREDNISolone NA SUCC 40 MG/1 ML VIAL IVPB SCH ×3 (01:41→22:11)
[2017-03-25 05:48] LABS: BASOPHIL 0.1 % (0-2.0); EOSINOPHIL 0.1 % (0-4.5); MCH 29.7 pg (25.7-33.7); MCHC 32.7 g/dl (32.0-35.9); MEAN CELL VOLUME 90.9 fl (80-96); MEAN PLT VOLUME 7.2 fl (7.5-11.1); NEUTROPHILS 97.5 % (42.8-82.8); PLATELET COUNT 168 K/MM3 (134-434); RDW 16.4 % (11.9-15.9); WHITE BLOOD COUNT 15.3 K/mm3 (4.0-10.0)
[2017-03-25] MEDS: ALBUTEROL SO4 2.5/IPRATROPIUM 0.5 INH SOL 3 ML VIAL.NEB. NEB SCH ×4 (06:00→19:04)
[2017-03-25] MEDS: ZINC OXIDE 20% TOPICAL OINTMENT 30 GM TUBE TP SCH ×3 (06:12→22:11)
[2017-03-25] MEDS: MAG HYDROX/AL HYDROX/SIMETH 30 ML UNIT-DOSE CUP PO SCH ×4 (06:12→18:15)
[2017-03-25 06:16] LABS: ALBUMIN 2.7 g/dl (3.4-5.0); ALK PHOS 52 U/L (45-117); ANION GAP 9 (8-16); BILIRUBIN,TOTAL 0.5 mg/dL (0.2-1.0); CO2 25 mmol/L (21-32); GLUCOSE,RANDOM 156 mg/dL (74-106); SGOT/AST 17 U/L (15-37); SGPT/ALT 22 U/L (12-78)
[2017-03-25] MEDS: ACETAMINOPHEN 325 MG TABLET (FP) PO PRN (07:30)
[2017-03-25] MEDS ORDERED: PT OWN MED DRAWER 7, Y5N ONE ×3 (08:46→22:03)
[2017-03-25] MEDS: PANTOPRAZOLE SODIUM 100 ML IVPB SCH ×2 (09:00→22:10)
[2017-03-25] MEDS: guaiFENesin 600 MG TABLET.ER (FP) PO SCH ×2 (09:05→22:09)
[2017-03-25] MEDS: SOLIFENACIN SUCCINATE 5 MG TAB (FP) PO SCH (09:06)
[2017-03-25] MEDS: CHOLECALCIFEROL (VITAMIN D3) 1,000 UNIT TABLET (FP) PO SCH (09:06)
[2017-03-25] MEDS: amLODIPine BESYLATE 10 MG TABLET (FP) PO SCH (09:06)
[2017-03-25] MEDS: LORATADINE 10 MG TABLET PO SCH (09:06)
[2017-03-25] MEDS: TAMSULOSIN HCL 0.4 MG CAP.ER.24H (FP) PO SCH (09:06)
[2017-03-25] MEDS: hydrALAZINE HCL 10 MG TABLET PO SCH ×2 (09:07→22:08)
[2017-03-25] MEDS: CHOLESTYRAMINE/ASPARTAME 4 GM PACKET PO SCH ×2 (09:07→22:11)
[2017-03-25] MEDS: LEVETIRACETAM 250 MG, LEVETIRACETAM 500 MG PO SCH ×2 (09:07→22:09)
--- NOTE | 2017-03-25 09:25 | PN ---
Progress Note, Physician Chief Complaint: TELE: NSR, VPCs rare Appears clinically improved, less dyspneic than last week - Current Medication List Current Medications: Active Medications Acetaminophen (Tylenol -) 650 mg PO Q4H PRN PRN Reason: FEVER OR PAIN Last Admin: 03/24/17 21:23 Dose: 650 mg Al Hydroxide/Mg Hydroxide (Mylanta Oral Suspension -) 30 ml PO Q6HPO [facility] Last Admin: 03/25/17 06:12 Dose: 30 ml Albuterol Sulfate (Ventolin 0.083% Nebulizer Soln -) 1 amp NEB Q4H PRN PRN Reason: SHORT OF BREATH/WHEEZING Albuterol/Ipratropium (Duoneb -) 1 amp NEB QIDR [facility] Last Admin: 03/25/17 06:00 Dose: 1 amp Amlodipine Besylate (Norvasc -) 10 mg PO DAILY [facility] Last Admin: 03/24/17 09:25 Dose: 10 mg Atorvastatin Calcium (Lipitor -) 10 mg PO HS [facility] Last Admin: 03/24/17 21:23 Dose: 10 mg Chlorhexidine Gluconate (Hibiclens For Decolonization -) 1 applic TP HS [facility] Last Admin: 03/24/17 21:24 Dose: 1 applic Cholecalciferol (Vitamin D3 -) 1,000 unit PO DAILY [facility] Last Admin: 03/24/17 10:15 Dose: 1,000 unit Cholestyramine Resin (Questran Light Packet -) 4 gm PO BID [facility] Last Admin: 03/24/17 22:48 Dose: 4 gm Guaifenesin (Mucinex -) 600 mg PO BID [facility] Last Admin: 03/24/17 21:24 Dose: 600 mg Hydralazine HCl (Apresoline -) 10 mg PO BID [facility] Last Admin: 03/24/17 22:46 Dose: 10 mg Metronidazole (Flagyl 500mg Premixed Ivpb -) 100 mls @ 100 mls/hr IVPB Q8H-IV [facility] Last Admin: 03/25/17 01:40 Dose: 100 mls/hr Pantoprazole Sodium (Protonix 40mg Ivpb (Pre-Docked)) 100 mls @ 200 mls/hr IVPB BID [facility] Last Admin: 03/24/17 21:29 Dose: 200 mls/hr Cefazolin Sodium (Ancef 1gm Ivpb (Pre-Docked)) 50 mls @ 100 mls/hr IVPB Q8H-IV [facility] Last Admin: 03/25/17 01:40 Dose: 100 mls/hr Levetiracetam 250 mg/ (Levetiracetam 500 mg) 750 mg PO BID [facility] Last Admin: 03/24/17 22:46 Dose: 750 mg Loratadine (Claritin -) 10 mg PO DAILY [facility] Last Admin: 03/24/17 09:25 Dose: 10 mg Methylprednisolone Sodium Succinate (Solu-Medrol -) 40 mg IVPB Q8H-IV [facility] Last Admin: 03/25/17 01:41 Dose: 40 mg Mometasone Furoate (Asmanex 220mcg -) 1 puff IH HS [facility] Last Admin: 03/24/17 21:32 Dose: 1 puff Montelukast Sodium (Singulair -) 10 mg PO HS [facility] Last Admin: 03/24/17 21:23 Dose: 10 mg Multi-Ingredient Ointment (Zinc Oxide) 1 applic TP TID [facility] Last Admin: 03/25/17 06:12 Dose: 1 applic Mupirocin (Bactroban Ointment (For Decolonization) -) 1 applic NS BID [facility] Stop: 03/26/17 21:59 Last Admin: 03/24/17 21:30 Dose: 1 applic Nitroglycerin (Nitrostat -) 0.4 mg SL [id number] PRN PRN Reason: CHEST PAIN Non-Formulary Medication (Lipase/Protease/Amylase [Pancrease Ec Capsule]) 4 each PO DAILY [facility] Nystatin (Nystop Powder -) 1 applic TP BID [facility] Last Admin: 03/24/17 22:47 Dose: 1 applic Oxymetazoline HCl (Afrin -) 2 spray NS BID PRN PRN Reason: NASAL CONGESTION Last Admin: 03/21/17 11:28 Dose: 2 spray Solifenacin (Vesicare -) 10 mg PO DAILY [facility] Last Admin: 03/24/17 09:20 Dose: 10 mg Tamsulosin HCl (Flomax -) 0.4 mg PO DAILY [facility] Last Admin: 03/24/17 09:25 Dose: 0.4 mg - Objective Vital Signs: Vital Signs Temperature 97.8 F 03/25/17 02:00 Pulse Rate 81 03/25/17 08:00 Respiratory Rate 28 H 03/25/17 08:00 Blood Pressure 179/98 03/25/17 08:00 O2 Sat by Pulse Oximetry (%) 96 03/24/17 22:00 Constitutional: Yes: No Distress, Calm Eyes: Yes: Conjunctiva Clear Neck: Yes: Supple Cardiovascular: Yes: Regular Rate and Rhythm Respiratory: Yes: Other (diffusely decreased breath sounds; bilateral rhonchi. No wheezing.) Gastrointestinal: Yes: Soft (non-tender.) Edema: Yes Edema: LLE: 1+, RLE: 1+ Neurological: Yes: Alert Labs: CBC, BMP 03/25/17 05:10 03/25/17 05:10 INR, PTT INR 1.03 (0.82-1.09) 03/22/17 05:15 Microbiology 03/21/17 16:45 Sputum - Expectorated Gram Stain - Final 03/20/17 18:11 Urine - Urine Clean Catch Urine Culture - Final Yeast Like Organism 03/21/17 16:45 Sputum - Expectorated Sputum Culture - Preliminary Presumptive Mssa (Pbp2a Neg) Laboratory Tests 03/25/17 03/25/17 05:10 05:10 WBC 15.3 H Hgb 8.6 L Hct 26.4 L Plt Count 168 Sodium 142 Potassium 5.2 H BUN 39 H Creatinine 1.0 Creat Clearance w eGFR > 60 Random Glucose 156 H Total Bilirubin 0.5 D AST 17 D ALT 22 Alkaline Phosphatase 52 - ....Imaging EKG: Image Reviewed Problem List - Problems (1) Pneumonia Code(s): J18.9 - PNEUMONIA, UNSPECIFIED ORGANISM Qualifiers: Pneumonia type: due to unspecified organism Laterality: bilateral Lung location: lower lobe of lung Qualified Code(s): J18.9 - Pneumonia, unspecified organism (2) COPD exacerbation Code(s): J44.1 - CHRONIC OBSTRUCTIVE PULMONARY DISEASE W (ACUTE) EXACERBATION (3) Respiratory distress Code(s): R06.00 - DYSPNEA, UNSPECIFIED (4) CVA (cerebral vascular accident) Code(s): I63.9 - CEREBRAL INFARCTION, UNSPECIFIED Qualifiers: CVA mechanism: unspecified Qualified Code(s): I63.9 - Cerebral infarction, unspecified (5) HTN (hypertension) Code(s): I10 - ESSENTIAL (PRIMARY) HYPERTENSION Qualifiers: Hypertension type: essential hypertension Qualified Code(s): I10 - Essential (primary) hypertension (6) Thoracic aneurysm without mention of rupture Code(s): I71.2 - THORACIC AORTIC ANEURYSM, WITHOUT RUPTURE Qualifiers: Presence of rupture: without rupture Qualified Code(s): I71.2 - Thoracic aortic aneurysm, without rupture (7) Peripheral arterial disease Code(s): I73.9 - PERIPHERAL VASCULAR DISEASE, UNSPECIFIED Assessment/Plan Assessment/Plan 89 year old man with a history of HTN, HLD, CAD, Chronic diastolic CHF, past CVA /TIA, COPD, Prostate Ca, PAD with recent admission for PNA/sepsis, COPD exacerbation now readmitted with respiratory distress, leukocytosis and CT showing bilateral PNA. SOB-AE COPD and bilateral PNA -echo showed no sig structural heart disease, normal LV function, no sig valvular abnl, no change from echo 2014 -holding standing Lasix, diurese prn -receiving supp O2 and Abx Chest pain-reported by RN yesterday afternoon and pt was given NTG SL, h/o reported CAD -pt reports chronic daily episodes of chest pain 4-5x per day attributed to a hiatal hernia and upon further detailed questioning occur consistently after eating meals. -cardiac enzymes wnl, ekg not significantly changed from prior ekgs, no arrhythmias on tele -would start ASA 81mg daily if aggrenox no longer needed and if no contraindications -no bblocker given h/o sig conduction disease and COPD -cont Lipitor HTN-variable, above goal at times, currently adequately controlled -cont amlodipine and hydralazine and adjust as needed -previously on Losartan but stopped last admission in setting of JEVON Carotid stenosis-with reported stents and CEA -clarify why aggrenox stopped and start ASA as above -cont statin
[2017-03-25] MEDS: MUPIROCIN 2% TOPICAL OINTMENT FOR DECOLONIZATION NS SCH ×2 (09:30→22:09)
--- NOTE | 2017-03-25 10:32 | CONSULT ---
Admitting History and Physical - Primary Care Physician PCP: Manpreet Acevedo - Admission History of Present Illness: 89-year-old male, known to me from last admission, readmitted with progressive shortness of breath nausea vomiting and diarrhea, with acute GI bleed. His last hospitalization was for severe bilateral pneumonia,with pt reporting vomiting after meals, that subsided during hospitalization. MBS was negative for aspiration,but a small HH and mild dysmotility was observed. Swallowing compensatory strategies reviewed with pt and staff on last admission included HOB elevated during and after meals, alternating solid with liquid, slow intake, small bites. PMHx of COPD, CHF, CAD, COPD, CVA Diet orders-03/20 reg, 02/20 clear liquid, 03/23 full liquid Selected Entries 03/24/17 03/24/17 03/24/17 02:00 06:00 09:00 Breakfast 100% Lunch Supper Temperature 97.8 F 97 F L 03/24/17 03/24/17 03/24/17 10:00 13:32 14:00 Breakfast Lunch 100% Supper Temperature 97.4 F L 97.6 F 03/24/17 03/24/17 03/24/17 18:00 22:00 22:40 Breakfast Lunch Supper 100% Temperature 97.8 F 98 F 03/25/17 02:00 Breakfast Lunch Supper Temperature 97.8 F Laboratory Tests 03/23/17 03/24/17 03/25/17 05:15 05:05 05:10 WBC 15.0 H 14.9 H 15.3 H EGD deferred as pt was not medically stable for scoping. / Noted to be coughing on liquids, improved with chin tuck technique per nursing note. Swallowing evaluation order placed. 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 Cardiovascular: Yes: CAD, HTN Pulmonary: Yes: COPD Gastrointestinal: Yes: Other (HX OF PROGRESSIVE REGURGITATION FOR YEARS, PLACED ON OMEPRAZOLE BY PMD NO WORK UP EVER DONE DESPITE SYMPTOMS) Renal/: Yes: Cancer (prostate) - Past Surgical History Past Surgical History: Yes: Carotid Endarterectomy (carotid "stent" about 2 years go), Stent (carotid; denies cardiac stent) - Advance Directives Advance Directives: Yes: Living Will, Health Care Proxy, DNR - Smoking History Smoking history: Former smoker Have you smoked in the past 12 months: No Aproximately how many cigarettes per day: 0 If you are a former smoker, when did you quit?: over 20 years go - Alcohol/Substance Use Hx Alcohol Use: No - Social History ADL: Family Assistance History of Recent Travel: No History - Admission Reason For Visit: RESPIRATORY DISTRESS - Diagnostics X-ray: Report Reviewed - General Mental Status: Alert and Oriented (good historian. o x 3. Appropriate.), Awake and Alert, Able to Follow Commands Attention: Intact (eyes closed but able to open them. Followed all commands and responded to all questions.) Ability to Follow Directions: Good - Hearing Hearing: Functional Hearing Aide: No With Patient: No Speech Evaluation - Communication Primary Language: ARMENIAN Communication: Yes: Within Normal Limits Oral Expression Ability: Yes: No Impairment - Speech Production Able to Make Needs Known: Yes: WNL Intelligibility: Yes: WNL - Speech Characteristics Voice Loudness: Mildly Soft/Quiet Voice Pitch: Yes: Normal Voice Phonatory-based Quality: Yes: Dysphonia (slight, possibly secondary to overall weakness) Speech Pattern: Normal Speech Clarity: < 100% Nasal Resonance: Normal Articulation: Yes: Precise Voice, Other Observations: Yes: Progressively Weak Voice - Language/Verbal Expression Able to Respond to Simple Queries: Yes: WNL Able to Communicate Wants and Needs: Yes: WNL Functional Communication Status: Yes: WNL Attention: Yes: Intact - Memory/Perception halfway Memory: Yes: WNL Short Term Memory: Yes: WNL - Swallow Evaluation/Bedside Assessment Current Nutritional Intake: Full Liquids, Thin Liquids Facial Symmetry at Rest: Symmetrical Facial Symmetry on Retraction: Symmetrical Facial Movement: Controlled Pucker Lips: Normal Smile: Normal Lingual Movement: Normal (c/o pain on tongue tip. Tongue cleaned this am and crust removed. Some yellowish/white crusting remains. Monitor for thrush), Symmetric Lingual Speed of Movement: Normal Lingual Movement Strgth Against Opposition: Normal Lingual Movement Characteristics: Normal Velopharyngeal Movement: Normal Laryngeal Movement: Labored,delay initiation Rate of Intake: WFL Bolus Size: WFL Labial Seal: WFL Oral Prep Time: WFL A-P Transit: WFL Pocketing: None Timing of Swallow: Delayed Coughing/Throat Clear: Yes (thin and nectar) Recommendations - Speech Evaluation, Impression/Plan Impression: Pt on VM, reports coughing when drinking. Deglutition and respiration on reciprocal functions. Increased RR, adversely affects airway protection. Aspiration suspected. - Dysphagia Impressions/Plan Swallowing Skills: Impaired Dysphagia Impressions: Mild Impairment, Moderate Impairment, Suspect Aspiration *Silent aspiration: cannot be R/O at bedside Dysphagia Treatment Plan: Elevate HOB during feed, Other (SINGLE SIPS. NO CONTINUOUS DRINKING) Recommendations: Modified Barium Swallow (if cough with PO intake continues), Other (Monitor pulmonary/nutritional status.) - Recommendations Diet Consistency: Dysphagia Pureed (if approved by GI) Medication Administration: Crushed with applesauce Liquids: Honey Thick Supplement: Magic Cup, Ensure Pudding
[2017-03-25] MEDS ORDERED: FUROSEMIDE 40 MG/4 ML INJECTABLE VIAL IVPUSH ONE ×2 (11:15→22:20)
--- NOTE | 2017-03-25 11:30 | PN ---
Teaching Attending Note Name of Resident: Ayan Spears ATTENDING PHYSICIAN STATEMENT I saw and evaluated the patient. I reviewed the resident's note and discussed the case with the resident. I agree with the resident's findings and plan as documented. SUBJECTIVE: Pt seen and examined in the ICU. States breathing continues to slowly improve. + nonproductive cough. No fevers or chills. No chest pain. OBJECTIVE: Last Vital Signs Temp Pulse Resp BP Pulse Ox 97.8 F 77 26 H 150/59 96 03/25/17 02:00 03/25/17 10:00 03/25/17 10:00 03/25/17 10:00 03/24/17 22:00 Intake & Output 03/22/17 03/23/17 03/24/17 03/25/17 23:59 23:59 23:59 23:59 Intake Total 1852 0 1940 920 Output Total 260 Balance 1852 1780 1940 920 Weight 190 lb 11.2 oz 190 lb 6.4 oz 194 lb 9.6 oz 195 lb 5 oz Gen: less tachypneic Heart: RRR Lung: scattered rhonchi, wheezes Abd: soft, nontender Ext: trace edema CBC, BMP 03/25/17 05:10 03/25/17 05:10 Active Medications Acetaminophen (Tylenol -) 650 mg PO Q4H PRN PRN Reason: FEVER OR PAIN Last Admin: 03/25/17 07:30 Dose: 650 mg Al Hydroxide/Mg Hydroxide (Mylanta Oral Suspension -) 30 ml PO Q6HPO [facility] Last Admin: 03/25/17 06:12 Dose: 30 ml Albuterol Sulfate (Ventolin 0.083% Nebulizer Soln -) 1 amp NEB Q4H PRN PRN Reason: SHORT OF BREATH/WHEEZING Albuterol Sulfate (Ventolin 0.083% Nebulizer Soln -) 2 amp NEB ONCE ONE Stop: 03/25/17 10:57 Albuterol/Ipratropium (Duoneb -) 1 amp NEB QIDR [facility] Last Admin: 03/25/17 06:00 Dose: 1 amp Amlodipine Besylate (Norvasc -) 10 mg PO DAILY [facility] Last Admin: 03/25/17 09:06 Dose: 10 mg Atorvastatin Calcium (Lipitor -) 10 mg PO HS [facility] Last Admin: 03/24/17 21:23 Dose: 10 mg Chlorhexidine Gluconate (Hibiclens For Decolonization -) 1 applic TP HS [facility] Last Admin: 03/24/17 21:24 Dose: 1 applic Cholecalciferol (Vitamin D3 -) 1,000 unit PO DAILY [facility] Last Admin: 03/25/17 09:06 Dose: 1,000 unit Cholestyramine Resin (Questran Light Packet -) 4 gm PO BID [facility] Last Admin: 03/25/17 09:07 Dose: 4 gm Guaifenesin (Mucinex -) 600 mg PO BID [facility] Last Admin: 03/25/17 09:05 Dose: 600 mg Hydralazine HCl (Apresoline -) 10 mg PO BID [facility] Last Admin: 03/25/17 09:07 Dose: 10 mg Metronidazole (Flagyl 500mg Premixed Ivpb -) 100 mls @ 100 mls/hr IVPB Q8H-IV [facility] Last Admin: 03/25/17 10:09 Dose: 100 mls/hr Pantoprazole Sodium (Protonix 40mg Ivpb (Pre-Docked)) 100 mls @ 200 mls/hr IVPB BID [facility] Last Admin: 03/25/17 09:00 Dose: 200 mls/hr Cefazolin Sodium (Ancef 1gm Ivpb (Pre-Docked)) 50 mls @ 100 mls/hr IVPB Q8H-IV [facility] Last Admin: 03/25/17 09:28 Dose: 100 mls/hr Levetiracetam 250 mg/ (Levetiracetam 500 mg) 750 mg PO BID [facility] Last Admin: 03/25/17 09:07 Dose: 750 mg Loratadine (Claritin -) 10 mg PO DAILY [facility] Last Admin: 03/25/17 09:06 Dose: 10 mg Methylprednisolone Sodium Succinate (Solu-Medrol -) 40 mg IVPB BID [facility] Mometasone Furoate (Asmanex 220mcg -) 1 puff IH HS [facility] Last Admin: 03/24/17 21:32 Dose: 1 puff Montelukast Sodium (Singulair -) 10 mg PO HS [facility] Last Admin: 03/24/17 21:23 Dose: 10 mg Multi-Ingredient Ointment (Zinc Oxide) 1 applic TP TID [facility] Last Admin: 03/25/17 06:12 Dose: 1 applic Mupirocin (Bactroban Ointment (For Decolonization) -) 1 applic NS BID [facility] Stop: 03/26/17 21:59 Last Admin: 03/25/17 09:30 Dose: 1 applic Nitroglycerin (Nitrostat -) 0.4 mg SL [id number] PRN PRN Reason: CHEST PAIN Non-Formulary Medication (Lipase/Protease/Amylase [Pancrease Ec Capsule]) 4 each PO DAILY [facility] Nystatin (Nystop Powder -) 1 applic TP BID [facility] Last Admin: 03/24/17 22:47 Dose: 1 applic Oxymetazoline HCl (Afrin -) 2 spray NS BID PRN PRN Reason: NASAL CONGESTION Last Admin: 03/21/17 11:28 Dose: 2 spray Solifenacin (Vesicare -) 10 mg PO DAILY [facility] Last Admin: 03/25/17 09:06 Dose: 10 mg Tamsulosin HCl (Flomax -) 0.4 mg PO DAILY [facility] Last Admin: 03/25/17 09:06 Dose: 0.4 mg ASSESSMENT AND PLAN: Acute on Chronic Hypoxic Respiratory Failure Pneumonia COPD Exacerbation CAD LV Diastolic Dysfunction GI Bleed Anemia Lymphoma - antibiotics per ID - continue medrol, can decrease to 40mg q12h - inhaled bronchodilators - O2 to keep SpO2 >90% - aspiration precautions - continue protonix - BiPAP as needed to assist in work of breathing - DVT prophylaxis - continue ICU monitoring critical care time spent in reviewing chart, evaluating patient and formulating plan 35 min
--- NOTE | 2017-03-25 12:00 | PN ---
Progress Note (short form) - Note Progress Note: Patient seen and examined. Awake, alert. Responds to verbal commands. Labored breathing. Denies chest pain, palpitation. Afebrile. present by the bedside. 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: CVA, Dementia, TIA Cardiovascular: Yes: CAD, HTN Pulmonary: Yes: COPD Gastrointestinal: Yes: Other (HX OF PROGRESSIVE REGURGITATION FOR YEARS, PLACED ON OMEPRAZOLE BY PMD NO WORK UP EVER DONE DESPITE SYMPTOMS) Renal/: Yes: Cancer (prostate) - Past Surgical History Past Surgical History: Yes: Carotid Endarterectomy (carotid "stent" about 2 years go), Stent (carotid; denies cardiac stent) - Advance Directives Advance Directives: Yes: Living Will, Health Care Proxy, DNR - Smoking History Smoking history: Former smoker Have you smoked in the past 12 months: No Aproximately how many cigarettes per day: 0 If you are a former smoker, when did you quit?: over 20 years go - Alcohol/Substance Use Hx Alcohol Use: No - Social History ADL: Family Assistance History of Recent Travel: No Home Medications - Allergies Allergies/Adverse Reactions: Allergies Allergy/AdvReac Type Severity Reaction Status Date / Time Anesthetics - Angle Type- Allergy Unknown Verified 03/20/17 17:27 Parabens [Anesthetics - Angle Type] latex Allergy Verified 03/20/17 17:27 - Home Medications Home Medications: Ambulatory Orders Albuterol 0.083% Nebulizer Lela [Ventolin 0.083% Nebulizer Soln -] 1 neb NEB BID 09/30/14 Aspirin/Dipyridamole [Aggrenox -] 1 combo PO BID 09/30/14 Cholecalciferol (Vitamin D3) [Vitamin D3] 1,000 unit PO DAILY 09/30/14 Cholestyramine/Sucrose [Cholestyramine Packet] 4 gm PO BID PRN 09/30/14 Fluticasone Propionate [Flovent Hfa] 110 mg IH BID 09/30/14 Levetiracetam [Keppra -] 750 mg PO BID 09/30/14 Lipase/Protease/Amylase [Pancrease EC Capsule] 4 each PO DAILY 09/30/14 Loratadine 10 mg PO DAILY 09/30/14 Montelukast Na [Singulair -] 10 mg PO HS 09/30/14 Simvastatin [Zocor] 20 mg PO HS 09/30/14 Solifenacin Succinate [Vesicare] 10 mg PO DAILY 09/30/14 Tamsulosin HCl [Flomax -] 0.4 mg PO DAILY 09/30/14 Tiotropium [place] [Spiriva] 1 inh PO DAILY 09/30/14 Lipase/Protease/Amylase [Pancrelipase 5,000 Dr Capsule -] 2 each PO BIDWM #60 cap 10/06/14 Oxymetazoline 0.05% Nasal Soln [Afrin -] 2 spray NS BID PRN #7 spraybtl Ranitidine [Zantac -] 150 mg PO BID #30 tablet 10/06/14 Tramadol HCl 50 mg PO Q6H #20 tablet MDD 200mg 01/08/17 Amlodipine Besylate [Norvasc -] 10 mg PO DAILY #30 tablet 03/19/17 Azithromycin 500 mg PO DAILY #5 tablet 03/19/17 Cefuroxime Axetil [Ceftin -] 500 mg PO BID #14 tablet 03/19/17 Hydralazine HCl 10 mg PO BID #60 tablet 03/19/17 Prednisone [Deltasone -] See Taper PO DAILY #30 tablet 03/19/17 Menthol/Zinc Oxide [Calmoseptine Ointment] 71 gm TP QID 03/20/17 Nystatin Powder [Nystop Topical Powder -] 15 gm TP BID 03/20/17 Review of Systems - Review of Systems Constitutional: reports: Lethargy, Weakness Eyes: reports: No Symptoms HENT: reports: No Symptoms Neck: reports: Stiffness Cardiovascular: reports: Shortness of Breath Respiratory: reports: Cough, SOB, Wheezing Gastrointestinal: reports: Nausea Genitourinary: reports: No Symptoms Musculoskeletal: reports: Back Pain Neurological: reports: No Symptoms Physical Examination Vital Signs: Vital Signs Period Temp Pulse Resp BP Sys/Bush Pulse Ox Last 24 Hr 97.6 F-99.8 F 68-94 20-31 125-179/48-98 94-97 Constitutional: Yes: Moderate Distress, Obese Eyes: Yes: Conjunctiva Clear, EOM Intact HENT: Yes: Atraumatic, Normocephalic Neck: Yes: Supple, Trachea Midline Cardiovascular: Yes: Regular Rate and Rhythm Respiratory: Yes: Diminished (air entry decreased b/l lung base) Gastrointestinal: Yes: Normal Bowel Sounds, Soft ...Rectal Exam: Yes: Deferred Musculoskeletal: Yes: Back Pain Neurological: Yes: Alert, Oriented ...Motor Strength: WNL Psychiatric: Yes: Alert Imaging - Results Chest X-ray: Report Reviewed Cat Scan: Report Reviewed Active Medications Acetaminophen (Tylenol -) 650 mg PO Q4H PRN PRN Reason: FEVER OR PAIN Last Admin: 03/25/17 07:30 Dose: 650 mg Al Hydroxide/Mg Hydroxide (Mylanta Oral Suspension -) 30 ml PO Q6HPO [facility] Last Admin: 03/25/17 06:12 Dose: 30 ml Albuterol Sulfate (Ventolin 0.083% Nebulizer Soln -) 1 amp NEB Q4H PRN PRN Reason: SHORT OF BREATH/WHEEZING Albuterol Sulfate (Ventolin 0.083% Nebulizer Soln -) 2 amp NEB ONCE ONE Stop: 03/25/17 10:57 Albuterol/Ipratropium (Duoneb -) 1 amp NEB QIDR [facility] Last Admin: 03/25/17 06:00 Dose: 1 amp Amlodipine Besylate (Norvasc -) 10 mg PO DAILY [facility] Last Admin: 03/25/17 09:06 Dose: 10 mg Atorvastatin Calcium (Lipitor -) 10 mg PO HS [facility] Last Admin: 03/24/17 21:23 Dose: 10 mg Chlorhexidine Gluconate (Hibiclens For Decolonization -) 1 applic TP [facility] Last Admin: 03/24/17 21:24 Dose: 1 applic Cholecalciferol (Vitamin D3 -) 1,000 unit PO DAILY [facility] Last Admin: 03/25/17 09:06 Dose: 1,000 unit Cholestyramine Resin (Questran Light Packet -) 4 gm PO BID [facility] Last Admin: 03/25/17 09:07 Dose: 4 gm Guaifenesin (Mucinex -) 600 mg PO BID [facility] Last Admin: 03/25/17 09:05 Dose: 600 mg Hydralazine HCl (Apresoline -) 10 mg PO BID [facility] Last Admin: 03/25/17 09:07 Dose: 10 mg Metronidazole (Flagyl 500mg Premixed Ivpb -) 100 mls @ 100 mls/hr IVPB Q8H-IV [facility] Last Admin: 03/25/17 10:09 Dose: 100 mls/hr Pantoprazole Sodium (Protonix 40mg Ivpb (Pre-Docked)) 100 mls @ 200 mls/hr IVPB BID [facility] Last Admin: 03/25/17 09:00 Dose: 200 mls/hr Cefazolin Sodium (Ancef 1gm Ivpb (Pre-Docked)) 50 mls @ 100 mls/hr IVPB Q8H-IV [facility] Last Admin: 03/25/17 09:28 Dose: 100 mls/hr Levetiracetam 250 mg/ (Levetiracetam 500 mg) 750 mg PO BID [facility] Last Admin: 03/25/17 09:07 Dose: 750 mg Loratadine (Claritin -) 10 mg PO DAILY [facility] Last Admin: 03/25/17 09:06 Dose: 10 mg Methylprednisolone Sodium Succinate (Solu-Medrol -) 40 mg IVPB BID [facility] Mometasone Furoate (Asmanex 220mcg -) 1 puff IH [facility] Last Admin: 03/24/17 21:32 Dose: 1 puff Montelukast Sodium (Singulair -) 10 mg PO HS [facility] Last Admin: 03/24/17 21:23 Dose: 10 mg Multi-Ingredient Ointment (Zinc Oxide) 1 applic TP TID [facility] Last Admin: 03/25/17 06:12 Dose: 1 applic Mupirocin (Bactroban Ointment (For Decolonization) -) 1 applic NS BID [facility] Stop: 03/26/17 21:59 Last Admin: 03/25/17 09:30 Dose: 1 applic Nitroglycerin (Nitrostat -) 0.4 mg SL [id number] PRN PRN Reason: CHEST PAIN Non-Formulary Medication (Lipase/Protease/Amylase [Pancrease Ec Capsule]) 4 each PO DAILY [facility] Nystatin (Nystop Powder -) 1 applic TP BID [facility] Last Admin: 03/24/17 22:47 Dose: 1 applic Oxymetazoline HCl (Afrin -) 2 spray NS BID PRN PRN Reason: NASAL CONGESTION Last Admin: 03/21/17 11:28 Dose: 2 spray Solifenacin (Vesicare -) 10 mg PO DAILY [facility] Last Admin: 03/25/17 09:06 Dose: 10 mg Tamsulosin HCl (Flomax -) 0.4 mg PO DAILY [facility] Last Admin: 03/25/17 09:06 Dose: 0.4 mg Problem List - Problems (1) Pneumonia Assessment/Plan: MSSA Pneumonia Antibiotic switched to Cefazolin. Pulmonary and ID follow up appreciated. Code(s): J18.9 - PNEUMONIA, UNSPECIFIED ORGANISM Qualifiers: Pneumonia type: due to unspecified organism Laterality: bilateral Lung location: lower lobe of lung Qualified Code(s): J18.9 - Pneumonia, unspecified organism (2) COPD exacerbation Assessment/Plan: With acute exacerbation. Improving. Continue O2 NC/Inhaled bronchodilators/Solumedrol. Pulmonary follow up appreciated. Code(s): J44.1 - CHRONIC OBSTRUCTIVE PULMONARY DISEASE W (ACUTE) EXACERBATION (3) YEISON (acute kidney injury) Assessment/Plan: Improving. Renal follow up appreciated. Code(s): N17.9 - ACUTE KIDNEY FAILURE, UNSPECIFIED (4) Acute respiratory failure Code(s): J96.00 - ACUTE RESPIRATORY FAILURE, UNSP W HYPOXIA OR HYPERCAPNIA Improving. Continue current management. BiPaP as needed. (5) CHF (congestive heart failure) Assessment/Plan: Stable. Chest x ray improved. Cardiology follow up appreciated. Will continue current management. Code(s): I50.9 - HEART FAILURE, UNSPECIFIED Qualifiers: Congestive heart failure type: unspecified congestive heart failure type Congestive heart failure chronicity: unspecified congestive heart failure chronicity Qualified Code(s): I50.9 - Heart failure, unspecified (6) CVA (cerebral vascular accident) Assessment/Plan: stable. Aggrenox on hold because of GI bleed Code(s): I63.9 - CEREBRAL INFARCTION, UNSPECIFIED Qualifiers: CVA mechanism: unspecified Qualified Code(s): I63.9 - Cerebral infarction, unspecified (7) HTN (hypertension) Code(s): I10 - ESSENTIAL (PRIMARY) HYPERTENSION Qualifiers: Hypertension type: essential hypertension Qualified Code(s): I10 - Essential (primary) hypertension Reasonable control. Continue current meds. (8) Duodenitis Assessment/Plan: CT Scan shows duodenitis. Patient with nausea, abdominal discomfort. GI follow up appreciated. Code(s): K29.80 - DUODENITIS WITHOUT BLEEDING 9) GI Bleed: S/P Transfusion. H/H stable. GI follow up appreciated. Discussed in detail with about the overall condition of the patient. Reviewed labs, consults with her. More than 35 minutes spent with the patient and the family. Problem List - Problems (1) Pneumonia Code(s): J18.9 - PNEUMONIA, UNSPECIFIED ORGANISM Qualifiers: Pneumonia type: due to unspecified organism Laterality: bilateral Lung location: lower lobe of lung Qualified Code(s): J18.9 - Pneumonia, unspecified organism (2) COPD exacerbation Code(s): J44.1 - CHRONIC OBSTRUCTIVE PULMONARY DISEASE W (ACUTE) EXACERBATION (3) YEISON (acute kidney injury) Code(s): N17.9 - ACUTE KIDNEY FAILURE, UNSPECIFIED (4) Acute respiratory failure Code(s): J96.00 - ACUTE RESPIRATORY FAILURE, UNSP W HYPOXIA OR HYPERCAPNIA Qualifiers: Respiratory failure complication: hypoxia Qualified Code(s): J96.01 - Acute respiratory failure with hypoxia (5) CHF (congestive heart failure) Code(s): I50.9 - HEART FAILURE, UNSPECIFIED Qualifiers: Congestive heart failure type: unspecified congestive heart failure type Congestive heart failure chronicity: unspecified congestive heart failure chronicity Qualified Code(s): I50.9 - Heart failure, unspecified (6) CVA (cerebral vascular accident) Code(s): I63.9 - CEREBRAL INFARCTION, UNSPECIFIED Qualifiers: CVA mechanism: unspecified Qualified Code(s): I63.9 - Cerebral infarction, unspecified (7) HTN (hypertension) Code(s): I10 - ESSENTIAL (PRIMARY) HYPERTENSION Qualifiers: Hypertension type: essential hypertension Qualified Code(s): I10 - Essential (primary) hypertension (8) Duodenitis Code(s): K29.80 - DUODENITIS WITHOUT BLEEDING
--- NOTE | 2017-03-25 12:32 | PN ---
Physical Exam: SUBJECTIVE: Patient seen and examined at bedside in ICU. Pt states he feels better today and his breathing feels better today. He denies fevers, chills, nausea, vomiting, new chest pains, abd pain. OBJECTIVE: Vital Signs Temperature 99.8 F H 03/25/17 11:00 Pulse Rate 77 03/25/17 10:00 Respiratory Rate 26 H 03/25/17 10:00 Blood Pressure 150/59 03/25/17 10:00 O2 Sat by Pulse Oximetry (%) 97 03/25/17 10:00 GENERAL: The patient is awake, alert, and in no acute distress. HEAD: Normal with no signs of trauma. EYES: extraocular movements intact, sclera anicteric ENT: Ears normal, nares patent NECK: Trachea midline LUNGS: b/l wheezing HEART: Regular rate and rhythm, S1, S2 ABDOMEN: Soft, nontender, nondistended, normoactive bowel sounds EXTREMITIES: warm, well-perfused, no edema. NEUROLOGICAL: Normal speech, gait not observed. PSYCH: Normal mood, normal affect. SKIN: Warm, dry Laboratory Results - last 24 hr 03/23/17 03/25/17 03/25/17 05:15 05:10 05:10 WBC 15.3 H RBC 2.90 L Hgb 8.6 L Hct 26.4 L MCV 90.9 MCH 29.7 MCHC 32.7 RDW 16.4 H Plt Count 168 MPV 7.2 L Neutrophils % 97.5 H Lymphocytes % 1.7 L Monocytes % 0.6 L Eosinophils % 0.1 D Basophils % 0.1 Sodium 142 Potassium 5.2 H Chloride 108 H Carbon Dioxide 25 Anion Gap 9 BUN 39 H Creatinine 1.0 Creat Clearance w eGFR > 60 Random Glucose 156 H Calcium 8.0 L Iron 61 TIBC 260 Iron Saturation 23 Total Bilirubin 0.5 D AST 17 D ALT 22 Alkaline Phosphatase 52 Total Protein 5.0 L Albumin 2.7 L Imaging: CXR: L angle not well visualized, R angle blunted, increased congestive changes. Active Medications Generic Name Dose Route Start Last Admin Trade Name Freq PRN Reason Stop Dose Admin Acetaminophen 650 mg 03/21/17 17:00 03/25/17 07:30 Tylenol - PO 650 mg Q4H PRN Administration FEVER OR PAIN Al Hydroxide/Mg Hydroxide 30 ml 03/23/17 12:00 03/25/17 06:12 Mylanta Oral Suspension - PO 30 ml Q6HPO [facility] Administration Albuterol Sulfate 1 amp 03/24/17 11:20 Ventolin 0.083% Nebulizer Soln - NEB Q4H PRN SHORT OF BREATH/WHEEZING Albuterol Sulfate 2 amp 03/25/17 10:56 Ventolin 0.083% Nebulizer Soln - NEB 03/25/17 10:57 ONCE ONE Albuterol/Ipratropium 1 amp 03/21/17 12:00 03/25/17 06:00 Duoneb - NEB 1 amp QIDR [facility] Administration Amlodipine Besylate 10 mg 03/21/17 10:00 03/25/17 09:06 Norvasc - PO 10 mg DAILY [facility] Administration Atorvastatin Calcium 10 mg 03/21/17 22:00 03/24/17 21:23 Lipitor - PO 10 mg HS [facility] Administration Chlorhexidine Gluconate 1 applic 03/21/17 22:00 03/24/17 21:24 Hibiclens For Decolonization - TP 1 applic HS [facility] Administration Cholecalciferol 1,000 unit 03/21/17 10:00 03/25/17 09:06 Vitamin D3 - PO 1,000 unit DAILY [facility] Administration Cholestyramine Resin 4 gm 03/21/17 05:58 03/25/17 09:07 Questran Light Packet - PO 4 gm BID [facility] Administration Guaifenesin 600 mg 03/21/17 10:00 03/25/17 09:05 Mucinex - PO 600 mg BID [facility] Administration Hydralazine HCl 10 mg 03/22/17 11:15 03/25/17 09:07 Apresoline - PO 10 mg BID [facility] Administration Pantoprazole Sodium 100 mls @ 200 mls/hr 03/24/17 22:00 03/25/17 09:00 Protonix 40mg Ivpb (Pre-Docked) IVPB 200 mls/hr BID [facility] Administration Vancomycin HCl 1,250 mg/ 250 mls @ 250 mls/hr 03/25/17 12:23 Dextrose IVPB 03/25/17 13:22 ONCE ONE Protocol Levetiracetam 250 mg/ 750 mg 03/21/17 10:00 03/25/17 09:07 Levetiracetam 500 mg PO 750 mg BID [facility] Administration Loratadine 10 mg 03/21/17 10:00 07/11/17 09:06 Claritin - PO 10 mg DAILY [facility] Administration Methylprednisolone Sodium Succinate 40 mg 03/25/17 22:00 Solu-Medrol - IVPB BID [facility] Mometasone Furoate 1 puff 03/21/17 22:00 03/24/17 21:32 Asmanex 220mcg - IH 1 puff HS [facility] Administration Montelukast Sodium 10 mg 03/21/17 22:00 03/24/17 21:23 Singulair - PO 10 mg HS [facility] Administration Multi-Ingredient Ointment 1 applic 03/21/17 14:00 03/25/17 06:12 Zinc Oxide TP 1 applic TID [facility] Administration Mupirocin 1 applic 03/21/17 22:00 03/25/17 09:30 Bactroban Ointment (For Decolonization) - NS 03/26/17 21:59 1 applic BID [facility] Administration Nitroglycerin 0.4 mg 03/22/17 18:41 Nitrostat - SL [id number] PRN CHEST PAIN Non-Formulary Medication 4 each 03/21/17 10:00 Lipase/Protease/Amylase [Pancrease Ec Capsule] PO DAILY [facility] Nystatin 1 applic 03/21/17 10:00 03/24/17 22:47 Nystop Powder - TP 1 applic BID [facility] Administration Oxymetazoline HCl 2 spray 03/20/17 23:00 03/21/17 11:28 Afrin - NS 2 spray BID PRN Administration NASAL CONGESTION Solifenacin 10 mg 03/21/17 10:00 03/25/17 09:06 Vesicare - PO 10 mg DAILY [facility] Administration Tamsulosin HCl 0.4 mg 03/21/17 10:00 03/25/17 09:06 Flomax - PO 0.4 mg DAILY [facility] Administration ASSESSMENT/PLAN: 89 y/o M w/PMH of HTN, HLD, CAD, dCHF, CVA/TIA, COPD, prostate ca, PAD presented to ER with SOB and admitted for SOB/acute respiratory failure secondary to pneumonia with superimposed COPD exacerbation. Currently in ICU. -Neuro -mental status intact -Pulm -Acute on chronic hypoxic respiratory failure secondary to PNA w/ superimposed acute on chronic COPD exacerbation -c/w methylprednisone 40 mg iv q8h, asmanex, duo-neb QIDR, alb nebs q4h prn, singulair -MRSA pna -d/c'd cefazolin -vanco 1250 mg IV once ordered -contact precautions -ID on board -O2 supplementation to keep O2 saturation above 90%, bipap PRN -GI -GI bleed, subsiding, H/H stable, continue to monitor -GI on board -Protonix 40 mg IV bid Renal -YEISON - BUN 49, Cr 1 -Cardio -chronic diastolic CHF -increased congestive changes on CXR -IV lasix 40 mg once ordered -HTN -c/w hydralazine 10 mg po bid, norvasc 10 mg po qd -Not on BB due to conduction abnormality -CAD -c/w atorvastatin 10 mg po qhs -Anemia, normocytic -H/H stable at this time, will continue to monitor -Prophylaxis -DVT ppx : SCDs -GI : on protonix 40 mg IV bid -FEN -not on fluids at this time -hyperkalemia - alb x2 and lasix iv 40mg once ordered -full liquid, low sodium and potassium diet. -If approved by GI: Dysphagia Pureed (if approved by GI) w/honey thickened liquids. Meds crushed w/applesauce -Code status: -DNR/DNI -Dispo: -continue to monitor in ICU Problem List - Problems (1) Acute and chronic respiratory failure with hypoxia Code(s): J96.21 - ACUTE AND CHRONIC RESPIRATORY FAILURE WITH HYPOXIA (2) COPD exacerbation Code(s): J44.1 - CHRONIC OBSTRUCTIVE PULMONARY DISEASE W (ACUTE) EXACERBATION (3) Duodenitis Code(s): K29.80 - DUODENITIS WITHOUT BLEEDING (4) GI bleed Code(s): K92.2 - GASTROINTESTINAL HEMORRHAGE, UNSPECIFIED (5) Pneumonia Code(s): J18.9 - PNEUMONIA, UNSPECIFIED ORGANISM Qualifiers: Pneumonia type: due to unspecified organism Laterality: bilateral Lung location: lower lobe of lung Qualified Code(s): J18.9 - Pneumonia, unspecified organism (6) YEISON (acute kidney injury) Code(s): N17.9 - ACUTE KIDNEY FAILURE, UNSPECIFIED (7) Acute respiratory failure Code(s): J96.00 - ACUTE RESPIRATORY FAILURE, UNSP W HYPOXIA OR HYPERCAPNIA Qualifiers: Respiratory failure complication: hypoxia Qualified Code(s): J96.01 - Acute respiratory failure with hypoxia (8) CHF (congestive heart failure) Code(s): I50.9 - HEART FAILURE, UNSPECIFIED Qualifiers: Congestive heart failure type: unspecified congestive heart failure type Congestive heart failure chronicity: unspecified congestive heart failure chronicity Qualified Code(s): I50.9 - Heart failure, unspecified (9) DVT prophylaxis Code(s): [id number] - (10) HTN (hypertension) Code(s): I10 - ESSENTIAL (PRIMARY) HYPERTENSION Qualifiers: Hypertension type: essential hypertension Qualified Code(s): I10 - Essential (primary) hypertension Visit type - Emergency Visit Emergency Visit: Yes ED Registration Date: 03/21/17 Care time: The patient presented to the Emergency Department on the above date and was hospitalized for further evaluation of their emergent condition. - New Patient This patient is new to me today: No - Critical Care Critical Care patient: Yes Total Critical Care Time (in minutes): 35 Critical Care Statement: The care of this patient involved high complexity decision making to prevent further life threatening deterioration of the patient 's condition and/or to evalute & treat vital organ system(s) failure or risk of failure.
[2017-03-25] MEDS: NYSTATIN POWDER 100,000 UNITS/GM - 15 GM TOPICAL POWDER TP SCH ×2 (12:36→22:10)
[2017-03-25] MEDS ORDERED: VANCOMYCIN 1,250 MG in DEXTROSE 5%-WATER - 250 ML IVPB ONE (12:45)
[2017-03-25] MEDS ORDERED: ALBUTEROL SO4 0.083% IH SOL 2.5 MG/3 ML VIAL.NEB. NEB ONE ×2 (12:45→13:00)
--- NOTE | 2017-03-25 13:52 | PN ---
Progress Note, Physician History of Present Illness: Pt seen and examined at bedside. He is awake and alert. He does have shortness of breath. - Current Medication List Current Medications: Active Medications Acetaminophen (Tylenol -) 650 mg PO Q4H PRN PRN Reason: FEVER OR PAIN Last Admin: 03/25/17 07:30 Dose: 650 mg Al Hydroxide/Mg Hydroxide (Mylanta Oral Suspension -) 30 ml PO Q6HPO [facility] Last Admin: 03/25/17 06:12 Dose: 30 ml Albuterol Sulfate (Ventolin 0.083% Nebulizer Soln -) 1 amp NEB Q4H PRN PRN Reason: SHORT OF BREATH/WHEEZING Albuterol/Ipratropium (Duoneb -) 1 amp NEB QIDR [facility] Last Admin: 03/25/17 12:05 Dose: 1 amp Amlodipine Besylate (Norvasc -) 10 mg PO DAILY [facility] Last Admin: 03/25/17 09:06 Dose: 10 mg Atorvastatin Calcium (Lipitor -) 10 mg PO HS [facility] Last Admin: 03/24/17 21:23 Dose: 10 mg Chlorhexidine Gluconate (Hibiclens For Decolonization -) 1 applic TP HS [facility] Last Admin: 03/24/17 21:24 Dose: 1 applic Cholecalciferol (Vitamin D3 -) 1,000 unit PO DAILY [facility] Last Admin: 03/25/17 09:06 Dose: 1,000 unit Cholestyramine Resin (Questran Light Packet -) 4 gm PO BID [facility] Last Admin: 03/25/17 09:07 Dose: 4 gm Guaifenesin (Mucinex -) 600 mg PO BID [facility] Last Admin: 03/25/17 09:05 Dose: 600 mg Hydralazine HCl (Apresoline -) 10 mg PO BID [facility] Last Admin: 03/25/17 09:07 Dose: 10 mg Pantoprazole Sodium (Protonix 40mg Ivpb (Pre-Docked)) 100 mls @ 200 mls/hr IVPB BID [facility] Last Admin: 03/25/17 09:00 Dose: 200 mls/hr Vancomycin HCl 1,250 mg/ (Dextrose) 250 mls @ 166.667 mls/hr IVPB ONCE ONE PRN Reason: Protocol Stop: 03/25/17 14:14 Levetiracetam 250 mg/ (Levetiracetam 500 mg) 750 mg PO BID [facility] Last Admin: 03/25/17 09:07 Dose: 750 mg Loratadine (Claritin -) 10 mg PO DAILY [facility] Last Admin: 03/25/17 09:06 Dose: 10 mg Methylprednisolone Sodium Succinate (Solu-Medrol -) 40 mg IVPB BID [facility] Mometasone Furoate (Asmanex 220mcg -) 1 puff IH [facility] Last Admin: 03/24/17 21:32 Dose: 1 puff Montelukast Sodium (Singulair -) 10 mg PO HS [facility] Last Admin: 03/24/17 21:23 Dose: 10 mg Multi-Ingredient Ointment (Zinc Oxide) 1 applic TP TID [facility] Last Admin: 03/25/17 06:12 Dose: 1 applic Mupirocin (Bactroban Ointment (For Decolonization) -) 1 applic NS BID [facility] Stop: 03/26/17 21:59 Last Admin: 03/25/17 09:30 Dose: 1 applic Nitroglycerin (Nitrostat -) 0.4 mg SL [id number] PRN PRN Reason: CHEST PAIN Non-Formulary Medication (Lipase/Protease/Amylase [Pancrease Ec Capsule]) 4 each PO DAILY [facility] Nystatin (Nystop Powder -) 1 applic TP BID [facility] Last Admin: 03/25/17 12:36 Dose: 1 applic Oxymetazoline HCl (Afrin -) 2 spray NS BID PRN PRN Reason: NASAL CONGESTION Last Admin: 03/21/17 11:28 Dose: 2 spray Solifenacin (Vesicare -) 10 mg PO DAILY [facility] Last Admin: 03/25/17 09:06 Dose: 10 mg Tamsulosin HCl (Flomax -) 0.4 mg PO DAILY [facility] Last Admin: 03/25/17 09:06 Dose: 0.4 mg - Objective Vital Signs: Vital Signs Temperature 99.8 F H 03/25/17 11:00 Pulse Rate 77 03/25/17 10:00 Respiratory Rate 26 H 03/25/17 10:00 Blood Pressure 150/59 03/25/17 10:00 O2 Sat by Pulse Oximetry (%) 97 03/25/17 10:00 Constitutional: Yes: Calm Eyes: Yes: Conjunctiva Clear HENT: Yes: Atraumatic Cardiovascular: Yes: S1, S2 Respiratory: Yes: On Venti-Mask, Rhonchi Gastrointestinal: Yes: Soft Genitourinary: Yes: Incontinence Musculoskeletal: Yes: Muscle Weakness Edema: Yes Edema: LLE: 1+, RLE: 1+ Neurological: Yes: Oriented Psychiatric: Yes: Oriented Labs: CBC, BMP 03/25/17 05:10 03/25/17 05:10 INR, PTT INR 1.03 (0.82-1.09) 03/22/17 05:15 Problem List - Problems (1) Acute and chronic respiratory failure with hypoxia Code(s): J96.21 - ACUTE AND CHRONIC RESPIRATORY FAILURE WITH HYPOXIA (2) GI bleed Code(s): K92.2 - GASTROINTESTINAL HEMORRHAGE, UNSPECIFIED Assessment/Plan Current Medications Generic Name Dose Route Start Last Admin Trade Name Freq PRN Reason Stop Dose Admin Acetaminophen 650 mg 03/21/17 17:00 03/25/17 07:30 Tylenol - PO 650 mg Q4H PRN Administration FEVER OR PAIN Al Hydroxide/Mg Hydroxide 30 ml 03/23/17 12:00 03/25/17 06:12 Mylanta Oral Suspension - PO 30 ml Q6HPO [facility] Administration Albuterol Sulfate 1 amp 03/24/17 11:20 Ventolin 0.083% Nebulizer Soln - NEB Q4H PRN SHORT OF BREATH/WHEEZING Albuterol/Ipratropium 1 amp 03/21/17 12:00 03/25/17 12:05 Duoneb - NEB 1 amp QIDR [facility] Administration Amlodipine Besylate 10 mg 03/21/17 10:00 03/25/17 09:06 Norvasc - PO 10 mg DAILY [facility] Administration Atorvastatin Calcium 10 mg 03/21/17 22:00 03/24/17 21:23 Lipitor - PO 10 mg HS [facility] Administration Chlorhexidine Gluconate 1 applic 03/21/17 22:00 03/24/17 21:24 Hibiclens For Decolonization - TP 1 applic HS [facility] Administration Cholecalciferol 1,000 unit 03/21/17 10:00 03/25/17 09:06 Vitamin D3 - PO 1,000 unit DAILY [facility] Administration Cholestyramine Resin 4 gm 03/21/17 05:58 03/25/17 09:07 Questran Light Packet - PO 4 gm BID [facility] Administration Guaifenesin 600 mg 03/21/17 10:00 03/25/17 09:05 Mucinex - PO 600 mg BID [facility] Administration Hydralazine HCl 10 mg 03/22/17 11:15 03/25/17 09:07 Apresoline - PO 10 mg BID [facility] Administration Pantoprazole Sodium 100 mls @ 200 mls/hr 03/24/17 22:00 03/25/17 09:00 Protonix 40mg Ivpb (Pre-Docked) IVPB 200 mls/hr BID [facility] Administration Vancomycin HCl 1,250 mg/ 250 mls @ 166.667 mls/hr 03/25/17 12:45 Dextrose IVPB 03/25/17 14:14 ONCE ONE Protocol Levetiracetam 250 mg/ 750 mg 03/21/17 10:00 03/25/17 09:07 Levetiracetam 500 mg PO 750 mg BID [facility] Administration Loratadine 10 mg 03/21/17 10:00 03/25/17 09:06 Claritin - PO 10 mg DAILY [facility] Administration Methylprednisolone Sodium Succinate 40 mg 03/25/17 22:00 Solu-Medrol - IVPB BID [facility] Mometasone Furoate 1 puff 03/21/17 22:00 03/24/17 21:32 Asmanex 220mcg - IH 1 puff HS [facility] Administration Montelukast Sodium 10 mg 03/21/17 22:00 03/24/17 21:23 Singulair - PO 10 mg HS [facility] Administration Multi-Ingredient Ointment 1 applic 03/21/17 14:00 03/25/17 06:12 Zinc Oxide TP 1 applic TID [facility] Administration Mupirocin 1 applic 03/21/17 22:00 03/25/17 09:30 Bactroban Ointment (For Decolonization) - NS 03/26/17 21:59 1 applic BID [facility] Administration Nitroglycerin 0.4 mg 03/22/17 18:41 Nitrostat - SL [id number] PRN CHEST PAIN Non-Formulary Medication 4 each 03/21/17 10:00 Lipase/Protease/Amylase [Pancrease Ec Capsule] PO DAILY [facility] Nystatin 1 applic 03/21/17 10:00 03/25/17 12:36 Nystop Powder - TP 1 applic BID [facility] Administration Oxymetazoline HCl 2 spray 03/20/17 23:00 03/21/17 11:28 Afrin - NS 2 spray BID PRN Administration NASAL CONGESTION Solifenacin 10 mg 03/21/17 10:00 03/25/17 09:06 Vesicare - PO 10 mg DAILY [facility] Administration Tamsulosin HCl 0.4 mg 03/21/17 10:00 03/25/17 09:06 Flomax - PO 0.4 mg DAILY [facility] Administration Impression 1. YEISON has been resolving 2. Sepsis 3. hx CHF 4. COPD 5. CAD 6. hx CVA 7. anemia 8. hyperkalemia 9. GI bleed Plan - discussed with ICU team - low potassium diet - dose of lasix should help with potassium - monitor hg - discussed with resident - will follow PRN - monitor hg
--- NOTE | 2017-03-25 16:57 | PN ---
Progress Note, Physician History of Present Illness: stable off and on sob says he feels well - Current Medication List Current Medications: Active Medications Acetaminophen (Tylenol -) 650 mg PO Q4H PRN PRN Reason: FEVER OR PAIN Last Admin: 03/25/17 07:30 Dose: 650 mg Al Hydroxide/Mg Hydroxide (Mylanta Oral Suspension -) 30 ml PO Q6HPO [facility] Last Admin: 03/25/17 13:00 Dose: 30 ml Albuterol Sulfate (Ventolin 0.083% Nebulizer Soln -) 1 amp NEB Q4H PRN PRN Reason: SHORT OF BREATH/WHEEZING Albuterol/Ipratropium (Duoneb -) 1 amp NEB QIDR [facility] Last Admin: 03/25/17 12:05 Dose: 1 amp Amlodipine Besylate (Norvasc -) 10 mg PO DAILY [facility] Last Admin: 03/25/17 09:06 Dose: 10 mg Atorvastatin Calcium (Lipitor -) 10 mg PO HS [facility] Last Admin: 03/24/17 21:23 Dose: 10 mg Chlorhexidine Gluconate (Hibiclens For Decolonization -) [address] [facility] Last Admin: 03/24/17 21:24 Dose: 1 applic Cholecalciferol (Vitamin D3 -) 1,000 unit PO DAILY [facility] Last Admin: 03/25/17 09:06 Dose: 1,000 unit Cholestyramine Resin (Questran Light Packet -) 4 gm PO BID [facility] Last Admin: 03/25/17 09:07 Dose: 4 gm Guaifenesin (Mucinex -) 600 mg PO BID [facility] Last Admin: 03/25/17 09:05 Dose: 600 mg Hydralazine HCl (Apresoline -) 10 mg PO BID [facility] Last Admin: 03/25/17 09:07 Dose: 10 mg Pantoprazole Sodium (Protonix 40mg Ivpb (Pre-Docked)) 100 mls @ 200 mls/hr IVPB BID [facility] Last Admin: 03/25/17 09:00 Dose: 200 mls/hr Levetiracetam 250 mg/ (Levetiracetam 500 mg) 750 mg PO BID [facility] Last Admin: 03/25/17 09:07 Dose: 750 mg Loratadine (Claritin -) 10 mg PO DAILY [facility] Last Admin: 03/25/17 09:06 Dose: 10 mg Methylprednisolone Sodium Succinate (Solu-Medrol -) 40 mg IVPB BID [facility] Mometasone Furoate (Asmanex 220mcg -) 1 puff IH HS [facility] Last Admin: 03/24/17 21:32 Dose: 1 puff Montelukast Sodium (Singulair -) 10 mg PO HS [facility] Last Admin: 03/24/17 21:23 Dose: 10 mg Multi-Ingredient Ointment (Zinc Oxide) 1 applic TP TID [facility] Last Admin: 03/25/17 06:12 Dose: 1 applic Mupirocin (Bactroban Ointment (For Decolonization) -) 1 applic NS BID [facility] Stop: 03/26/17 21:59 Last Admin: 03/25/17 09:30 Dose: 1 applic Nitroglycerin (Nitrostat -) 0.4 mg SL [id number] PRN PRN Reason: CHEST PAIN Non-Formulary Medication (Lipase/Protease/Amylase [Pancrease Ec Capsule]) 4 each PO DAILY [facility] Nystatin (Nystop Powder -) 1 applic TP BID [facility] Last Admin: 03/25/17 12:36 Dose: 1 applic Oxymetazoline HCl (Afrin -) 2 spray NS BID PRN PRN Reason: NASAL CONGESTION Last Admin: 03/21/17 11:28 Dose: 2 spray Solifenacin (Vesicare -) 10 mg PO DAILY [facility] Last Admin: 03/25/17 09:06 Dose: 10 mg Tamsulosin HCl (Flomax -) 0.4 mg PO DAILY [facility] Last Admin: 03/25/17 09:06 Dose: 0.4 mg - Objective Vital Signs: Vital Signs Temperature 99.6 F 03/25/17 14:00 Pulse Rate 73 03/25/17 16:00 Respiratory Rate 26 H 03/25/17 16:00 Blood Pressure 153/63 03/25/17 16:00 O2 Sat by Pulse Oximetry (%) 97 03/25/17 10:00 Constitutional: Yes: Calm, Mild Distress Cardiovascular: Yes: S1, S2 Respiratory: Yes: Regular, On Nasal O2, Poor Air Entry, Rhonchi Gastrointestinal: Yes: Normal Bowel Sounds, Soft Musculoskeletal: Yes: Other Extremities: Yes: Other Neurological: Yes: Alert, Oriented Psychiatric: Yes: Alert, Oriented Labs: CBC, BMP 03/25/17 05:10 03/25/17 05:10 INR, PTT INR 1.03 (0.82-1.09) 03/22/17 05:15 Assessment/Plan Problem List - Problems (1) Pneumonia Code(s): J18.9 - PNEUMONIA, UNSPECIFIED ORGANISM Qualifiers: Pneumonia type: due to unspecified organism Laterality: bilateral Lung location: lower lobe of lung Qualified Code(s): J18.9 - Pneumonia, unspecified organism (2) COPD exacerbation Code(s): J44.1 - CHRONIC OBSTRUCTIVE PULMONARY DISEASE W (ACUTE) EXACERBATION (3) YEISON (acute kidney injury) Code(s): N17.9 - ACUTE KIDNEY FAILURE, UNSPECIFIED (4) Acute respiratory failure Code(s): J96.00 - ACUTE RESPIRATORY FAILURE, UNSP W HYPOXIA OR HYPERCAPNIA (5) CHF (congestive heart failure) Code(s): I50.9 - HEART FAILURE, UNSPECIFIED Qualifiers: Congestive heart failure type: unspecified congestive heart failure type Congestive heart failure chronicity: unspecified congestive heart failure chronicity Qualified Code(s): I50.9 - Heart failure, unspecified (6) CVA (cerebral vascular accident) Code(s): I63.9 - CEREBRAL INFARCTION, UNSPECIFIED Qualifiers: CVA mechanism: unspecified Qualified Code(s): I63.9 - Cerebral infarction, unspecified (7) HTN (hypertension) Code(s): I10 - ESSENTIAL (PRIMARY) HYPERTENSION Qualifiers: Hypertension type: essential hypertension Qualified Code(s): I10 - Essential (primary) hypertension (8) Duodenitis Code(s): K29.80 - DUODENITIS WITHOUT BLEEDING 9 mrsa pneumonia patients sputum cx has now been changed to mrsa pneumonia from mssa pneumonia patient got one dose of vanco plan mrsa pneumonia will start vanco on the patient stopped all other abx incentive shelby rest as per primary cc time 40 min
--- NOTE | 2017-03-25 18:30 | PN ---
GI Progress Note Subjective: GASTROENTEROLOGY FEELS OK , SAYS DOESN'T KNOW IF BREATHING IS BETTER BECAUSE HE WAS ASLEEP ALL DAY NO REPORTED BLEEDING STOOL FAT, WBC STILL PENDING H&H STABLE - Objective Vital Signs: Vital Signs Temperature 99.6 F 03/25/17 14:00 Pulse Rate 72 03/25/17 18:00 Respiratory Rate 26 H 03/25/17 18:00 Blood Pressure 151/63 03/25/17 18:00 O2 Sat by Pulse Oximetry (%) 97 03/25/17 10:00 Constitutional: No Distress, Calm Eyes: Yes: Conjunctiva Clear HENT: Yes: Atraumatic Neck: Yes: Supple Cardiovascular: Yes: Regular Rate and Rhythm Respiratory: Yes: Rhonchi, Tachypnea ...Auscultate: Yes: Normoactive Bowel Sounds ...Palpate: Yes: Soft Extremities: Yes: WNL Neurological: Yes: Alert, Oriented Labs: CBC, BMP 03/25/17 05:10 03/25/17 05:10 INR, PTT INR 1.03 (0.82-1.09) 03/22/17 05:15 Problem List - Problems (1) GI bleed Assessment/Plan: RESOLVING, DYSPHAGIA PUREED DIET STARTS TOMORROW, D/C'ed PROTONIX GTT STARTED IV PROTONIX BID SOME LOOSE STOOLS C DIFF NEG 3 DAYS AGO, STOOL FAT AND WBC PENDING FOLLOW CBC STILL NOT GOOD CANDIDATE FOR SCOPES KANE SMALLS MD ICU TIME :35 MINUTES Code(s): K92.2 - GASTROINTESTINAL HEMORRHAGE, UNSPECIFIED (2) Esophageal dysmotility Code(s): K22.4 - DYSKINESIA OF ESOPHAGUS (3) COPD exacerbation Code(s): J44.1 - CHRONIC OBSTRUCTIVE PULMONARY DISEASE W (ACUTE) EXACERBATION (4) Duodenitis Code(s): K29.80 - DUODENITIS WITHOUT BLEEDING (5) Peripheral arterial disease Code(s): I73.9 - PERIPHERAL VASCULAR DISEASE, UNSPECIFIED (6) Pneumonia Code(s): J18.9 - PNEUMONIA, UNSPECIFIED ORGANISM Qualifiers: Pneumonia type: due to unspecified organism Laterality: bilateral Lung location: lower lobe of lung Qualified Code(s): J18.9 - Pneumonia, unspecified organism (7) Respiratory distress Code(s): R06.00 - DYSPNEA, UNSPECIFIED (8) Thoracic aneurysm without mention of rupture Code(s): I71.2 - THORACIC AORTIC ANEURYSM, WITHOUT RUPTURE Qualifiers: Presence of rupture: without rupture Qualified Code(s): I71.2 - Thoracic aortic aneurysm, without rupture (9) Acute respiratory failure Code(s): J96.00 - ACUTE RESPIRATORY FAILURE, UNSP W HYPOXIA OR HYPERCAPNIA Qualifiers: Respiratory failure complication: hypoxia Qualified Code(s): J96.01 - Acute respiratory failure with hypoxia (10) CHF (congestive heart failure) Code(s): I50.9 - HEART FAILURE, UNSPECIFIED Qualifiers: Congestive heart failure type: unspecified congestive heart failure type Congestive heart failure chronicity: unspecified congestive heart failure chronicity Qualified Code(s): I50.9 - Heart failure, unspecified (11) CVA (cerebral vascular accident) Code(s): I63.9 - CEREBRAL INFARCTION, UNSPECIFIED Qualifiers: CVA mechanism: unspecified Qualified Code(s): I63.9 - Cerebral infarction, unspecified
[2017-03-25] MEDS: MOMETASONE FUROATE 220 MCG/IH INHALER IH SCH (22:08)
[2017-03-25] MEDS: ATORVASTATIN CA 10 MG TABLET (FP) PO SCH (22:09)
[2017-03-25] MEDS: CHLORHEXIDINE GLUCONATE 4% CLEANSER FOR DECOLONIZATION TP SCH (22:09)
[2017-03-25] MEDS: MONTELUKAST NA 10 MG TABLET PO SCH (22:11)
[2017-03-26] MEDS ORDERED: hydrALAZINE HCL 20 MG/ML VIAL ONE (03:19)
[2017-03-26] MEDS ORDERED: PT OWN MED DRAWER 7, Y5N ONE ×2 (03:26→08:21)
[2017-03-26] MEDS: MAG HYDROX/AL HYDROX/SIMETH 30 ML UNIT-DOSE CUP PO SCH ×3 (03:31→13:30)
[2017-03-26] MEDS: ALBUTEROL SO4 2.5/IPRATROPIUM 0.5 INH SOL 3 ML VIAL.NEB. NEB SCH ×4 (05:30→17:15)
[2017-03-26 06:14] LABS: BASOPHIL 0.1 % (0-2.0); MCH 29.6 pg (25.7-33.7); MCHC 32.4 g/dl (32.0-35.9); MEAN CELL VOLUME 91.4 fl (80-96); MEAN PLT VOLUME 7.5 fl (7.5-11.1); NEUTROPHILS 95.9 % (42.8-82.8); PLATELET COUNT 159 K/MM3 (134-434); RDW 16.6 % (11.9-15.9); WHITE BLOOD COUNT 16.1 K/mm3 (4.0-10.0)
[2017-03-26 06:36] LABS: ALBUMIN 2.8 g/dl (3.4-5.0); ANION GAP 9 (8-16); CALCIUM 7.6 mg/dL (8.5-10.1); CO2 29 mmol/L (21-32); GLUCOSE,RANDOM 150 mg/dL (74-106)
[2017-03-26 06:39] LABS: ALK PHOS 53 U/L (45-117); BILIRUBIN,TOTAL 0.6 mg/dL (0.2-1.0); SGOT/AST 16 U/L (15-37); SGPT/ALT 22 U/L (12-78); TOT PROT 5.1 g/dl (6.4-8.2)
[2017-03-26] MEDS: ZINC OXIDE 20% TOPICAL OINTMENT 30 GM TUBE TP SCH ×2 (06:44→15:00)
--- NOTE | 2017-03-26 09:13 | PN ---
Progress Note, Physician Chief Complaint: alert Feels less SOB TELE: NSR CXR: reviewed, slight improvement at left base History of Present Illness: Now on isolation for MRSA PNA - Current Medication List Current Medications: Active Medications Acetaminophen (Tylenol -) 650 mg PO Q4H PRN PRN Reason: FEVER OR PAIN Last Admin: 03/25/17 07:30 Dose: 650 mg Al Hydroxide/Mg Hydroxide (Mylanta Oral Suspension -) 30 ml PO Q6HPO [facility] Last Admin: 03/26/17 06:44 Dose: Not Given Albuterol Sulfate (Ventolin 0.083% Nebulizer Soln -) 1 amp NEB Q4H PRN PRN Reason: SHORT OF BREATH/WHEEZING Albuterol/Ipratropium (Duoneb -) 1 amp NEB QIDR [facility] Last Admin: 03/26/17 05:30 Dose: 1 amp Amlodipine Besylate (Norvasc -) 10 mg PO DAILY [facility] Last Admin: 03/25/17 09:06 Dose: 10 mg Atorvastatin Calcium (Lipitor -) 10 mg PO HS [facility] Last Admin: 03/25/17 22:09 Dose: 10 mg Chlorhexidine Gluconate (Hibiclens For Decolonization -) 1 applic TP HS [facility] Last Admin: 03/25/17 22:09 Dose: 1 applic Cholecalciferol (Vitamin D3 -) 1,000 unit PO DAILY [facility] Last Admin: 03/25/17 09:06 Dose: 1,000 unit Cholestyramine Resin (Questran Light Packet -) 4 gm PO BID [facility] Last Admin: 03/25/17 22:11 Dose: 4 gm Guaifenesin (Mucinex -) 600 mg PO BID [facility] Last Admin: 03/25/17 22:09 Dose: 600 mg Hydralazine HCl (Apresoline -) 10 mg PO BID [facility] Last Admin: 03/25/17 22:08 Dose: 10 mg Pantoprazole Sodium (Protonix 40mg Ivpb (Pre-Docked)) 100 mls @ 200 mls/hr IVPB BID [facility] Last Admin: 03/25/17 22:10 Dose: 200 mls/hr Vancomycin HCl 1,250 mg/ (Dextrose) 250 mls @ 166.667 mls/hr IVPB DAILY@1400 [facility] PRN Reason: Protocol Levetiracetam 250 mg/ (Levetiracetam 500 mg) 750 mg PO BID [facility] Last Admin: 03/25/17 22:09 Dose: 750 mg Loratadine (Claritin -) 10 mg PO DAILY [facility] Last Admin: 03/25/17 09:06 Dose: 10 mg Methylprednisolone Sodium Succinate (Solu-Medrol -) 40 mg IVPB BID [facility] Last Admin: 03/25/17 22:11 Dose: 40 mg Mometasone Furoate (Asmanex 220mcg -) 1 puff IH [facility] Last Admin: 03/25/17 22:08 Dose: 1 puff Montelukast Sodium (Singulair -) 10 mg PO HS [facility] Last Admin: 03/25/17 22:11 Dose: 10 mg Multi-Ingredient Ointment (Zinc Oxide) 1 applic TP TID [facility] Last Admin: 03/26/17 06:44 Dose: 1 applic Mupirocin (Bactroban Ointment (For Decolonization) -) 1 applic NS BID [facility] Stop: 03/26/17 21:59 Last Admin: 03/25/17 22:09 Dose: 1 applic Nitroglycerin (Nitrostat -) 0.4 mg SL [id number] PRN PRN Reason: CHEST PAIN Non-Formulary Medication (Lipase/Protease/Amylase [Pancrease Ec Capsule]) 4 each PO DAILY [facility] Nystatin (Nystop Powder -) 1 applic TP BID [facility] Last Admin: 03/25/17 22:10 Dose: 1 applic Oxymetazoline HCl (Afrin -) 2 spray NS BID PRN PRN Reason: NASAL CONGESTION Last Admin: 03/21/17 11:28 Dose: 2 spray Solifenacin (Vesicare -) 10 mg PO DAILY [facility] Last Admin: 03/25/17 09:06 Dose: 10 mg Tamsulosin HCl (Flomax -) 0.4 mg PO DAILY [facility] Last Admin: 03/25/17 09:06 Dose: 0.4 mg - Objective Vital Signs: Vital Signs Temperature 98.1 F 03/26/17 06:00 Pulse Rate 80 03/26/17 06:00 Respiratory Rate 20 03/26/17 06:00 Blood Pressure 131/58 03/26/17 06:00 O2 Sat by Pulse Oximetry (%) 97 03/25/17 20:03 Constitutional: Yes: Calm Eyes: Yes: Conjunctiva Clear Cardiovascular: Yes: Regular Rate and Rhythm Respiratory: Yes: Other (no rales or wheezing) Gastrointestinal: Yes: Soft (non-tender), Abdomen, Obese Edema: Yes Edema: LLE: 1+ (venodynes), RLE: 1+ (venodynes) Neurological: Yes: Alert Labs: CBC, BMP 03/26/17 05:20 03/26/17 05:20 INR, PTT INR 1.03 (0.82-1.09) 03/22/17 05:15 - ....Imaging X-ray: Image Reviewed EKG: Image Reviewed Problem List - Problems (1) Pneumonia Code(s): J18.9 - PNEUMONIA, UNSPECIFIED ORGANISM Qualifiers: Pneumonia type: due to unspecified organism Laterality: bilateral Lung location: lower lobe of lung Qualified Code(s): J18.9 - Pneumonia, unspecified organism (2) COPD exacerbation Code(s): J44.1 - CHRONIC OBSTRUCTIVE PULMONARY DISEASE W (ACUTE) EXACERBATION (3) Respiratory distress Code(s): R06.00 - DYSPNEA, UNSPECIFIED (4) CVA (cerebral vascular accident) Code(s): I63.9 - CEREBRAL INFARCTION, UNSPECIFIED Qualifiers: CVA mechanism: unspecified Qualified Code(s): I63.9 - Cerebral infarction, unspecified (5) HTN (hypertension) Code(s): I10 - ESSENTIAL (PRIMARY) HYPERTENSION Qualifiers: Hypertension type: essential hypertension Qualified Code(s): I10 - Essential (primary) hypertension (6) Thoracic aneurysm without mention of rupture Code(s): I71.2 - THORACIC AORTIC ANEURYSM, WITHOUT RUPTURE Qualifiers: Presence of rupture: without rupture Qualified Code(s): I71.2 - Thoracic aortic aneurysm, without rupture (7) Peripheral arterial disease Code(s): I73.9 - PERIPHERAL VASCULAR DISEASE, UNSPECIFIED Assessment/Plan Assessment/Plan 89 year old man with a history of HTN, HLD, CAD, Chronic diastolic CHF, past CVA /TIA, COPD, Prostate Ca, PAD with recent admission for PNA/sepsis, COPD exacerbation now readmitted with respiratory distress, leukocytosis and CT showing bilateral MRSA PNA. SOB-AE COPD and bilateral MRSA PNA: -echo showed no sig structural heart disease, normal LV function -holding standing Lasix, diurese prn -receiving supp O2 and Abx Chest pain- -pt reports chronic daily episodes of chest pain 4-5x per day attributed to a hiatal hernia and upon further detailed questioning occur consistently after eating meals. -cardiac enzymes wnl, ekg not significantly changed from prior ekgs, no arrhythmias on tele -would start ASA 81mg daily if aggrenox no longer needed and if no contraindications -no bblocker given h/o sig conduction disease and COPD -cont Lipitor HTN-currently adequately controlled -Continue current meds Carotid stenosis-with reported stents and CEA -clarify why aggrenox stopped and start ASA as above -cont statin
[2017-03-26] MEDS: hydrALAZINE HCL 10 MG TABLET PO SCH (09:36)
[2017-03-26] MEDS: amLODIPine BESYLATE 10 MG TABLET (FP) PO SCH (09:36)
[2017-03-26] MEDS: TAMSULOSIN HCL 0.4 MG CAP.ER.24H (FP) PO SCH (09:36)
[2017-03-26] MEDS: CHOLESTYRAMINE/ASPARTAME 4 GM PACKET PO SCH (09:37)
[2017-03-26] MEDS: SOLIFENACIN SUCCINATE 5 MG TAB (FP) PO SCH (09:37)
[2017-03-26] MEDS: guaiFENesin 600 MG TABLET.ER (FP) PO SCH (09:37)
[2017-03-26] MEDS: CHOLECALCIFEROL (VITAMIN D3) 1,000 UNIT TABLET (FP) PO SCH (09:37)
[2017-03-26] MEDS: LEVETIRACETAM 250 MG, LEVETIRACETAM 500 MG PO SCH (09:37)
[2017-03-26] MEDS: methylPREDNISolone NA SUCC 40 MG/1 ML VIAL IVPB SCH (09:38)
[2017-03-26] MEDS: LORATADINE 10 MG TABLET PO SCH (09:38)
[2017-03-26] MEDS: PANTOPRAZOLE SODIUM 100 ML IVPB SCH (09:38)
[2017-03-26] MEDS: MUPIROCIN 2% TOPICAL OINTMENT FOR DECOLONIZATION NS SCH (09:38)
[2017-03-26] MEDS: NYSTATIN POWDER 100,000 UNITS/GM - 15 GM TOPICAL POWDER TP SCH (09:39)
--- NOTE | 2017-03-26 10:49 | PN ---
Teaching Attending Note Name of Resident: Ayan Spears ATTENDING PHYSICIAN STATEMENT I saw and evaluated the patient. I reviewed the resident's note and discussed the case with the resident. I agree with the resident's findings and plan as documented. SUBJECTIVE: Pt seen and examined in the ICU. Breathing continues to improve. Saturating well on nasal cannula. No fevers or chills. OBJECTIVE: Last Vital Signs Temp Pulse Resp BP Pulse Ox 98 F 71 20 123/59 97 03/26/17 10:00 03/26/17 10:00 03/26/17 10:00 03/26/17 10:00 03/25/17 20:03 Intake & Output 03/23/17 03/24/17 03/25/17 03/26/17 23:59 23:59 23:59 23:59 Intake Total 2039 1939 1949 Output Total 260 Balance 1779 1939 1949 Weight 190 lb 6.4 oz 194 lb 9.6 oz 195 lb 5 oz 194 lb 8 oz Gen: less tachypneic Heart: RRR Lung: scattered wheezes, rhonchi Abd: soft, nontender Ext: no edema CBC, BMP 03/26/17 05:20 03/26/17 05:20 Active Medications Acetaminophen (Tylenol -) 650 mg PO Q4H PRN PRN Reason: FEVER OR PAIN Last Admin: 03/25/17 07:30 Dose: 650 mg Al Hydroxide/Mg Hydroxide (Mylanta Oral Suspension -) 30 ml PO Q6HPO [facility] Last Admin: 03/26/17 06:44 Dose: Not Given Albuterol Sulfate (Ventolin 0.083% Nebulizer Soln -) 1 amp NEB Q4H PRN PRN Reason: SHORT OF BREATH/WHEEZING Albuterol/Ipratropium (Duoneb -) 1 amp NEB QIDR [facility] Last Admin: 03/26/17 05:30 Dose: 1 amp Amlodipine Besylate (Norvasc -) 10 mg PO DAILY [facility] Last Admin: 03/26/17 09:36 Dose: 10 mg Atorvastatin Calcium (Lipitor -) 10 mg PO HS [facility] Last Admin: 03/25/17 22:09 Dose: 10 mg Chlorhexidine Gluconate (Hibiclens For Decolonization -) 1 applic TP [facility] Last Admin: 03/25/17 22:09 Dose: 1 applic Cholecalciferol (Vitamin D3 -) 1,000 unit PO DAILY [facility] Last Admin: 03/26/17 09:37 Dose: 1,000 unit Cholestyramine Resin (Questran Light Packet -) 4 gm PO BID [facility] Last Admin: 03/26/17 09:37 Dose: 4 gm Furosemide (Lasix Injection -) 40 mg IVPUSH ONCE ONE Stop: 03/26/17 10:42 Guaifenesin (Mucinex -) 600 mg PO BID [facility] Last Admin: 03/26/17 09:37 Dose: 600 mg Hydralazine HCl (Apresoline -) 10 mg PO BID [facility] Last Admin: 03/26/17 09:36 Dose: 10 mg Pantoprazole Sodium (Protonix 40mg Ivpb (Pre-Docked)) 100 mls @ 200 mls/hr IVPB BID [facility] Last Admin: 03/26/17 09:38 Dose: 200 mls/hr Vancomycin HCl 1,250 mg/ (Dextrose) 250 mls @ 166.667 mls/hr IVPB DAILY@1400 [facility] PRN Reason: Protocol Levetiracetam 250 mg/ (Levetiracetam 500 mg) 750 mg PO BID [facility] Last Admin: 03/26/17 09:37 Dose: 750 mg Loratadine (Claritin -) 10 mg PO DAILY [facility] Last Admin: 03/26/17 09:38 Dose: 10 mg Methylprednisolone Sodium Succinate (Solu-Medrol -) 40 mg IVPB BID [facility] Last Admin: 03/26/17 09:38 Dose: 40 mg Mometasone Furoate (Asmanex 220mcg -) 1 puff IH [facility] Last Admin: 03/25/17 22:08 Dose: 1 puff Montelukast Sodium (Singulair -) 10 mg PO HS [facility] Last Admin: 03/25/17 22:11 Dose: 10 mg Multi-Ingredient Ointment (Zinc Oxide) 1 applic TP TID [facility] Last Admin: 03/26/17 06:44 Dose: 1 applic Mupirocin (Bactroban Ointment (For Decolonization) -) 1 applic NS BID [facility] Stop: 03/26/17 21:59 Last Admin: 03/26/17 09:38 Dose: 1 applic Nitroglycerin (Nitrostat -) 0.4 mg SL [id number] PRN PRN Reason: CHEST PAIN Non-Formulary Medication (Lipase/Protease/Amylase [Pancrease Ec Capsule]) 4 each PO DAILY [facility] Nystatin (Nystop Powder -) 1 applic TP BID [facility] Last Admin: 03/26/17 09:39 Dose: 1 applic Oxymetazoline HCl (Afrin -) 2 spray NS BID PRN PRN Reason: NASAL CONGESTION Last Admin: 03/21/17 11:28 Dose: 2 spray Solifenacin (Vesicare -) 10 mg PO DAILY [facility] Last Admin: 03/26/17 09:37 Dose: 10 mg Tamsulosin HCl (Flomax -) 0.4 mg PO DAILY [facility] Last Admin: 03/26/17 09:36 Dose: 0.4 mg ASSESSMENT AND PLAN: Acute on Chronic Hypoxic Respiratory Failure Pneumonia COPD Exacerbation CAD LV Diastolic Dysfunction GI Bleed Anemia Lymphoma - antibiotics per ID - continue medrol, can likely taper in AM - inhaled bronchodilators - lasix 40mg IVP today - O2 to keep SpO2 >90% - aspiration precautions - continue protonix - BiPAP as needed to assist in work of breathing - DVT prophylaxis - can monitor on telemetry - continue ICU monitoring
[2017-03-26] MEDS ORDERED: FUROSEMIDE 40 MG/4 ML INJECTABLE VIAL IVPUSH ONE (12:00)
--- NOTE | 2017-03-26 12:39 | PN ---
Physical Exam: SUBJECTIVE: Patient seen and examined at bedside in ICU. Pt states his breathing is improved compared to yesterday. No new complaints today. Denies N/V /F/C, new chest pain. No acute events overnight. OBJECTIVE: Vital Signs Temperature 98 F 03/26/17 10:00 Pulse Rate 71 03/26/17 10:00 Respiratory Rate 20 03/26/17 10:00 Blood Pressure 123/59 03/26/17 10:00 O2 Sat by Pulse Oximetry (%) 97 03/25/17 20:03 GENERAL: The patient is awake, alert, fully oriented and in no acute distress. HEAD: Normal with no signs of trauma. EYES: extraocular movements intact, sclera anicteric ENT: Ears normal, nares patent NECK: Trachea midline LUNGS: auscultated anteriorly, b/l coarse breath sounds HEART: Regular rate and rhythm, S1, S2 ABDOMEN: Soft, nontender, nondistended, normoactive bowel sounds EXTREMITIES: warm, well-perfused, no edema. NEUROLOGICAL: Normal speech, gait not observed. PSYCH: Normal mood, normal affect. SKIN: Warm, dry Laboratory Results - last 24 hr 03/26/17 03/26/17 05:20 05:20 WBC 16.1 H RBC 3.03 L Hgb 9.0 L Hct 27.7 L MCV 91.4 MCH 29.6 MCHC 32.4 RDW 16.6 H Plt Count 159 MPV 7.5 Neutrophils % 95.9 H Lymphocytes % 2.2 L D Monocytes % 1.8 L D Eosinophils % 0.0 D Basophils % 0.1 Sodium 140 Potassium 4.6 Chloride 102 Carbon Dioxide 29 Anion Gap 9 BUN 36 H Creatinine 1.0 Creat Clearance w eGFR > 60 Random Glucose 150 H Calcium 7.6 L Total Bilirubin 0.6 AST 16 ALT 22 Alkaline Phosphatase 53 Total Protein 5.1 L Albumin 2.8 L Imaging: CXR: Mild improvement compared to previous CXR. Active Medications Generic Name Dose Route Start Last Admin Trade Name Freq PRN Reason Stop Dose Admin Acetaminophen 650 mg 03/21/17 17:00 03/25/17 07:30 Tylenol - PO 650 mg Q4H PRN Administration FEVER OR PAIN Al Hydroxide/Mg Hydroxide 30 ml 03/23/17 12:00 03/26/17 06:44 Mylanta Oral Suspension - PO Not Given Q6HPO [facility] Albuterol Sulfate 1 amp 03/24/17 11:20 Ventolin 0.083% Nebulizer Soln - NEB Q4H PRN SHORT OF BREATH/WHEEZING Albuterol/Ipratropium 1 amp 03/21/17 12:00 03/26/17 05:30 Duoneb - NEB 1 amp QIDR [facility] Administration Amlodipine Besylate 10 mg 03/21/17 10:00 03/26/17 09:36 Norvasc - PO 10 mg DAILY [facility] Administration Atorvastatin Calcium 10 mg 03/21/17 22:00 03/25/17 22:09 Lipitor - PO 10 mg HS [facility] Administration Chlorhexidine Gluconate 1 applic 03/21/17 22:00 03/25/17 22:09 Hibiclens For Decolonization - TP 1 applic HS [facility] Administration Cholecalciferol 1,000 unit 03/21/17 10:00 03/26/17 09:37 Vitamin D3 - PO 1,000 unit DAILY [facility] Administration Cholestyramine Resin 4 gm 03/21/17 05:58 03/26/17 09:37 Questran Light Packet - PO 4 gm BID [facility] Administration Guaifenesin 600 mg 03/21/17 10:00 03/26/17 09:37 Mucinex - PO 600 mg BID [facility] Administration Hydralazine HCl 10 mg 03/22/17 11:15 03/26/17 09:36 Apresoline - PO 10 mg BID [facility] Administration Pantoprazole Sodium 100 mls @ 200 mls/hr 03/24/17 22:00 03/26/17 09:38 Protonix 40mg Ivpb (Pre-Docked) IVPB 200 mls/hr BID [facility] Administration Vancomycin HCl 1,250 mg/ 250 mls @ 166.667 mls/hr 03/26/17 14:00 Dextrose IVPB DAILY@1400 [facility] Protocol Levetiracetam 250 mg/ 750 mg 03/21/17 10:00 03/26/17 09:37 Levetiracetam 500 mg PO 750 mg BID [facility] Administration Loratadine 10 mg 03/21/17 10:00 03/26/17 09:38 Claritin - PO 10 mg DAILY [facility] Administration Methylprednisolone Sodium Succinate 40 mg 03/25/17 22:00 03/26/17 09:38 Solu-Medrol - IVPB 40 mg BID [facility] Administration Mometasone Furoate 1 puff 03/21/17 22:00 03/25/17 22:08 Asmanex 220mcg - IH 1 puff HS [facility] Administration Montelukast Sodium 10 mg 03/21/17 22:00 03/25/17 22:11 Singulair - PO 10 mg HS [facility] Administration Multi-Ingredient Ointment 1 applic 03/21/17 14:00 03/26/17 06:44 Zinc Oxide TP 1 applic TID [facility] Administration Mupirocin 1 applic 03/21/17 22:00 03/26/17 09:38 Bactroban Ointment (For Decolonization) - NS 03/26/17 21:59 1 applic BID [facility] Administration Nitroglycerin 0.4 mg 03/22/17 18:41 Nitrostat - SL [id number] PRN CHEST PAIN Non-Formulary Medication 4 each 03/21/17 10:00 Lipase/Protease/Amylase [Pancrease Ec Capsule] PO DAILY [facility] Nystatin 1 applic 03/21/17 10:00 03/26/17 09:39 Nystop Powder - TP 1 applic BID [facility] Administration Oxymetazoline HCl 2 spray 03/20/17 23:00 03/21/17 11:28 Afrin - NS 2 spray BID PRN Administration NASAL CONGESTION Solifenacin 10 mg 03/21/17 10:00 03/26/17 09:37 Vesicare - PO 10 mg DAILY [facility] Administration Tamsulosin HCl 0.4 mg 03/21/17 10:00 03/26/17 09:36 Flomax - PO 0.4 mg DAILY [facility] Administration ASSESSMENT/PLAN: 89 y/o M w/PMH of HTN, HLD, CAD, dCHF, CVA/TIA, COPD, prostate ca, PAD presented to ER with SOB and admitted for SOB/acute respiratory failure secondary to pneumonia with superimposed COPD exacerbation. Currently in ICU. -Neuro -mental status intact -Pulm -Acute on chronic hypoxic respiratory failure secondary to PNA w/ superimposed acute on chronic COPD exacerbation -c/w methylprednisone 40 mg iv q12h, asmanex, duo-neb QIDR, alb nebs q4h prn , singulair -if pt continues to improve, can decrease methylprednisone to 40 mg qd -MRSA pna -vanco 1250 mg IV. Will need vanco trough after 4th dose. -contact precautions -ID on board -O2 supplementation to keep O2 saturation above 90% -GI -GI bleed, subsiding, H/H stable, continue to monitor -GI on board -Protonix 40 mg IV bid Renal -YEISON, improving - BUN 36, Cr 1 -Cardio -chronic diastolic CHF -IV lasix 40 mg once ordered for today. -HTN -c/w hydralazine 10 mg po bid, norvasc 10 mg po qd -Not on BB due to conduction abnormality -CAD -c/w atorvastatin 10 mg po qhs -Anemia, normocytic -H/H stable at this time, will continue to monitor -Prophylaxis -DVT ppx : SCDs -GI : on protonix 40 mg IV bid -FEN -not on fluids at this time -monitor electrolytes, replete as necessary -Dysphagia Pureed - low potassium, w/honey thickened liquids. Meds crushed w/ applesauce -Code status: -DNR/DNI -Dispo: -continue to monitor in ICU Problem List - Problems (1) Acute and chronic respiratory failure with hypoxia Code(s): J96.21 - ACUTE AND CHRONIC RESPIRATORY FAILURE WITH HYPOXIA (2) COPD exacerbation Code(s): J44.1 - CHRONIC OBSTRUCTIVE PULMONARY DISEASE W (ACUTE) EXACERBATION (3) Duodenitis Code(s): K29.80 - DUODENITIS WITHOUT BLEEDING (4) GI bleed Code(s): K92.2 - GASTROINTESTINAL HEMORRHAGE, UNSPECIFIED (5) Pneumonia Code(s): J18.9 - PNEUMONIA, UNSPECIFIED ORGANISM Qualifiers: Pneumonia type: due to unspecified organism Laterality: bilateral Lung location: lower lobe of lung Qualified Code(s): J18.9 - Pneumonia, unspecified organism (6) YEISON (acute kidney injury) Code(s): N17.9 - ACUTE KIDNEY FAILURE, UNSPECIFIED (7) Acute respiratory failure Code(s): J96.00 - ACUTE RESPIRATORY FAILURE, UNSP W HYPOXIA OR HYPERCAPNIA Qualifiers: Respiratory failure complication: hypoxia Qualified Code(s): J96.01 - Acute respiratory failure with hypoxia (8) CHF (congestive heart failure) Code(s): I50.9 - HEART FAILURE, UNSPECIFIED Qualifiers: Congestive heart failure type: unspecified congestive heart failure type Congestive heart failure chronicity: unspecified congestive heart failure chronicity Qualified Code(s): I50.9 - Heart failure, unspecified (9) DVT prophylaxis Code(s): YFR9003 - (10) HTN (hypertension) Code(s): I10 - ESSENTIAL (PRIMARY) HYPERTENSION Qualifiers: Hypertension type: essential hypertension Qualified Code(s): I10 - Essential (primary) hypertension Visit type - Emergency Visit Emergency Visit: Yes ED Registration Date: 03/21/17 Care time: The patient presented to the Emergency Department on the above date and was hospitalized for further evaluation of their emergent condition. - New Patient This patient is new to me today: No - Critical Care Critical Care patient: Yes Total Critical Care Time (in minutes): 35 Critical Care Statement: The care of this patient involved high complexity decision making to prevent further life threatening deterioration of the patient 's condition and/or to evalute & treat vital organ system(s) failure or risk of failure.
--- NOTE | 2017-03-26 13:42 | PN ---
Physical Exam: SUBJECTIVE: Patient seen and examined at bedside. No overnight events. No new complaints. Denies OBJECTIVE: Vital Signs Period Temp Pulse Resp BP Sys/Bush Pulse Ox Last 24 Hr 98 F-99.6 F 68-80 20-28 123-167/51-63 97-98 GGENERAL: awake and alert, moderate distress. HEAD: AT/NC EYES: PERRL, EOMI, sclera anicteric, conjunctiva clear. No ptosis. NECK:Supple, no jvd LUNGS:scattered rhonci, expiratory wheezing. HEART: RRR, S1S2 ABDOMEN: Soft,obese , epigastric tenderness, mild distention. EXTREMITIES: 2+ pulses, warm, well-perfused, 1+ Lower ext. edema. Laboratory Results - last 24 hr 03/26/17 03/26/17 05:20 05:20 WBC 16.1 H RBC 3.03 L Hgb 9.0 L Hct 27.7 L MCV 91.4 MCH 29.6 MCHC 32.4 RDW 16.6 H Plt Count 159 MPV 7.5 Neutrophils % 95.9 H Lymphocytes % 2.2 L D Monocytes % 1.8 L D Eosinophils % 0.0 D Basophils % 0.1 Sodium 140 Potassium 4.6 Chloride 102 Carbon Dioxide 29 Anion Gap 9 BUN 36 H Creatinine 1.0 Creat Clearance w eGFR > 60 Random Glucose 150 H Calcium 7.6 L Total Bilirubin 0.6 AST 16 ALT 22 Alkaline Phosphatase 53 Total Protein 5.1 L Albumin 2.8 L Active Medications Generic Name Dose Route Start Last Admin Trade Name Freq PRN Reason Stop Dose Admin Acetaminophen 650 mg 03/21/17 17:00 03/25/17 07:30 Tylenol - PO 650 mg Q4H PRN Administration FEVER OR PAIN Al Hydroxide/Mg Hydroxide 30 ml 03/23/17 12:00 03/26/17 06:44 Mylanta Oral Suspension - PO Not Given Q6HPO [facility] Albuterol Sulfate 1 amp 03/24/17 11:20 Ventolin 0.083% Nebulizer Soln - NEB Q4H PRN SHORT OF BREATH/WHEEZING Albuterol/Ipratropium 1 amp 03/21/17 12:00 03/26/17 05:30 Duoneb - NEB 1 amp QIDR [facility] Administration Amlodipine Besylate 10 mg 03/21/17 10:00 03/26/17 09:36 Norvasc - PO 10 mg DAILY [facility] Administration Atorvastatin Calcium 10 mg 03/21/17 22:00 03/25/17 22:09 Lipitor - PO 10 mg HS [facility] Administration Chlorhexidine Gluconate 1 applic 03/21/17 22:00 03/25/17 22:09 Hibiclens For Decolonization - TP 1 applic HS [facility] Administration Cholecalciferol 1,000 unit 03/21/17 10:00 03/26/17 09:37 Vitamin D3 - PO 1,000 unit DAILY [facility] Administration Cholestyramine Resin 4 gm 03/21/17 05:58 03/26/17 09:37 Questran Light Packet - PO 4 gm BID [facility] Administration Guaifenesin 600 mg 03/21/17 10:00 03/26/17 09:37 Mucinex - PO 600 mg BID [facility] Administration Hydralazine HCl 10 mg 03/22/17 11:15 03/26/17 09:36 Apresoline - PO 10 mg BID [facility] Administration Pantoprazole Sodium 100 mls @ 200 mls/hr 03/24/17 22:00 03/26/17 09:38 Protonix 40mg Ivpb (Pre-Docked) IVPB 200 mls/hr BID [facility] Administration Vancomycin HCl 1,250 mg/ 250 mls @ 166.667 mls/hr 03/26/17 14:00 Dextrose IVPB DAILY@1400 [facility] Protocol Levetiracetam 250 mg/ 750 mg 03/21/17 10:00 03/26/17 09:37 Levetiracetam 500 mg PO 750 mg BID [facility] Administration Loratadine 10 mg 03/21/17 10:00 03/26/17 09:38 Claritin - PO 10 mg DAILY [facility] Administration Methylprednisolone Sodium Succinate 40 mg 03/25/17 22:00 03/26/17 09:38 Solu-Medrol - IVPB 40 mg BID [facility] Administration Mometasone Furoate 1 puff 03/21/17 22:00 03/25/17 22:08 Asmanex 220mcg - IH 1 puff HS [facility] Administration Montelukast Sodium 10 mg 03/21/17 22:00 03/25/17 22:11 Singulair - PO 10 mg HS [facility] Administration Multi-Ingredient Ointment 1 applic 03/21/17 14:00 03/26/17 06:44 Zinc Oxide TP 1 applic TID [facility] Administration Mupirocin 1 applic 03/21/17 22:00 03/26/17 09:38 Bactroban Ointment (For Decolonization) - NS 03/26/17 21:59 1 applic BID [facility] Administration Nitroglycerin 0.4 mg 03/22/17 18:41 Nitrostat - SL [id number] PRN CHEST PAIN Non-Formulary Medication 4 each 03/21/17 10:00 Lipase/Protease/Amylase [Pancrease Ec Capsule] PO DAILY [facility] Nystatin 1 applic 03/21/17 10:00 03/26/17 09:39 Nystop Powder - TP 1 applic BID [facility] Administration Oxymetazoline HCl 2 spray 03/20/17 23:00 03/21/17 11:28 Afrin - NS 2 spray BID PRN Administration NASAL CONGESTION Solifenacin 10 mg 03/21/17 10:00 03/26/17 09:37 Vesicare - PO 10 mg DAILY [facility] Administration Tamsulosin HCl 0.4 mg 03/21/17 10:00 03/26/17 09:36 Flomax - PO 0.4 mg DAILY [facility] Administration ASSESSMENT/PLAN: 89 year old male with significant PMHx of COPD, CHF, CAD, COPD, CVA, brought to the emergency room by EMS c/o having loose bowel movements and nausea. Admitted for acute GI bleed. Problem List - Problems (1) YEISON (acute kidney injury) Assessment/Plan: * Kidney function is at baseline. * No intervention at this time. * Avoid nephrotoxins. (2) Duodenitis Assessment/Plan: * GI bleed. * Not a candidate for scope, * Evaluated by GI. (3) COPD exacerbation Assessment/Plan: * Continue supplemental O2 * Bipap PRN * taper steroids * Continue Singulair * Duoneb QID (4) HTN (hypertension) Assessment/Plan: * Continue Amlodipine 5mg PO daily * started on Hydralazine 10mg BID (5) CHF (congestive heart failure) Assessment/Plan: * Echo pending * Cardio consult appreciated Visit type - Emergency Visit Emergency Visit: Yes ED Registration Date: 03/21/17 Care time: The patient presented to the Emergency Department on the above date and was hospitalized for further evaluation of their emergent condition. - New Patient This patient is new to me today: Yes Date on this admission: 03/26/17 - Critical Care Critical Care patient: Yes Total Critical Care Time (in minutes): 30 Critical Care Statement: The care of this patient involved high complexity decision making to prevent further life threatening deterioration of the patient 's condition and/or to evalute & treat vital organ system(s) failure or risk of failure.
[2017-03-26] MEDS: VANCOMYCIN 1,250 MG in DEXTROSE 5%-WATER - 250 ML IVPB SCH (15:00)
--- NOTE | 2017-03-26 16:09 | PN ---
Progress Note, Physician History of Present Illness: stable off and on sob says he feels well - Current Medication List Current Medications: Active Medications Acetaminophen (Tylenol -) 650 mg PO Q4H PRN PRN Reason: FEVER OR PAIN Last Admin: 03/25/17 07:30 Dose: 650 mg Al Hydroxide/Mg Hydroxide (Mylanta Oral Suspension -) 30 ml PO Q6HPO [facility] Last Admin: 03/26/17 06:44 Dose: Not Given Albuterol Sulfate (Ventolin 0.083% Nebulizer Soln -) 1 amp NEB Q4H PRN PRN Reason: SHORT OF BREATH/WHEEZING Albuterol/Ipratropium (Duoneb -) 1 amp NEB QIDR [facility] Last Admin: 03/26/17 11:15 Dose: 1 amp Amlodipine Besylate (Norvasc -) 10 mg PO DAILY [facility] Last Admin: 03/26/17 09:36 Dose: 10 mg Atorvastatin Calcium (Lipitor -) 10 mg PO HS [facility] Last Admin: 03/25/17 22:09 Dose: 10 mg Chlorhexidine Gluconate (Hibiclens For Decolonization -) 1 applic TP [facility] Last Admin: 03/25/17 22:09 Dose: 1 applic Cholecalciferol (Vitamin D3 -) 1,000 unit PO DAILY [facility] Last Admin: 03/26/17 09:37 Dose: 1,000 unit Cholestyramine Resin (Questran Light Packet -) 4 gm PO BID [facility] Last Admin: 03/26/17 09:37 Dose: 4 gm Guaifenesin (Mucinex -) 600 mg PO BID [facility] Last Admin: 03/26/17 09:37 Dose: 600 mg Hydralazine HCl (Apresoline -) 10 mg PO BID [facility] Last Admin: 03/26/17 09:36 Dose: 10 mg Pantoprazole Sodium (Protonix 40mg Ivpb (Pre-Docked)) 100 mls @ 200 mls/hr IVPB BID [facility] Last Admin: 03/26/17 09:38 Dose: 200 mls/hr Vancomycin HCl 1,250 mg/ (Dextrose) 250 mls @ 166.667 mls/hr IVPB DAILY@1400 [facility] PRN Reason: Protocol Levetiracetam 250 mg/ (Levetiracetam 500 mg) 750 mg PO BID [facility] Last Admin: 03/26/17 09:37 Dose: 750 mg Loratadine (Claritin -) 10 mg PO DAILY [facility] Last Admin: 03/26/17 09:38 Dose: 10 mg Methylprednisolone Sodium Succinate (Solu-Medrol -) 40 mg IVPB BID [facility] Last Admin: 03/26/17 09:38 Dose: 40 mg Mometasone Furoate (Asmanex 220mcg -) 1 puff IH HS [facility] Last Admin: 03/25/17 22:08 Dose: 1 puff Montelukast Sodium (Singulair -) 10 mg PO HS [facility] Last Admin: 03/25/17 22:11 Dose: 10 mg Multi-Ingredient Ointment (Zinc Oxide) 1 applic TP TID [facility] Last Admin: 03/26/17 06:44 Dose: 1 applic Mupirocin (Bactroban Ointment (For Decolonization) -) 1 applic NS BID [facility] Stop: 03/26/17 21:59 Last Admin: 03/26/17 09:38 Dose: 1 applic Nitroglycerin (Nitrostat -) 0.4 mg SL [id number] PRN PRN Reason: CHEST PAIN Non-Formulary Medication (Lipase/Protease/Amylase [Pancrease Ec Capsule]) 4 each PO DAILY [facility] Nystatin (Nystop Powder -) 1 applic TP BID [facility] Last Admin: 03/26/17 09:39 Dose: 1 applic Oxymetazoline HCl (Afrin -) 2 spray NS BID PRN PRN Reason: NASAL CONGESTION Last Admin: 03/21/17 11:28 Dose: 2 spray Solifenacin (Vesicare -) 10 mg PO DAILY [facility] Last Admin: 03/26/17 09:37 Dose: 10 mg Tamsulosin HCl (Flomax -) 0.4 mg PO DAILY [facility] Last Admin: 03/26/17 09:36 Dose: 0.4 mg - Objective Vital Signs: Vital Signs Temperature 98.6 F 03/26/17 14:00 Pulse Rate 76 03/26/17 14:00 Respiratory Rate 20 03/26/17 14:00 Blood Pressure 136/58 03/26/17 14:00 O2 Sat by Pulse Oximetry (%) 98 03/26/17 09:00 Constitutional: Yes: No Distress, Calm Respiratory: Yes: Regular, Rhonchi, Other Gastrointestinal: Yes: Normal Bowel Sounds, Soft Musculoskeletal: Yes: WNL Extremities: Yes: WNL Neurological: Yes: Alert, Oriented Psychiatric: Yes: Alert, Oriented Labs: CBC, BMP 03/26/17 05:20 03/26/17 05:20 INR, PTT INR 1.03 (0.82-1.09) 03/22/17 05:15 Assessment/Plan Problem List - Problems (1) Pneumonia Code(s): J18.9 - PNEUMONIA, UNSPECIFIED ORGANISM Qualifiers: Pneumonia type: due to unspecified organism Laterality: bilateral Lung location: lower lobe of lung Qualified Code(s): J18.9 - Pneumonia, unspecified organism (2) COPD exacerbation Code(s): J44.1 - CHRONIC OBSTRUCTIVE PULMONARY DISEASE W (ACUTE) EXACERBATION (3) YEISON (acute kidney injury) Code(s): N17.9 - ACUTE KIDNEY FAILURE, UNSPECIFIED (4) Acute respiratory failure Code(s): J96.00 - ACUTE RESPIRATORY FAILURE, UNSP W HYPOXIA OR HYPERCAPNIA (5) CHF (congestive heart failure) Code(s): I50.9 - HEART FAILURE, UNSPECIFIED Qualifiers: Congestive heart failure type: unspecified congestive heart failure type Congestive heart failure chronicity: unspecified congestive heart failure chronicity Qualified Code(s): I50.9 - Heart failure, unspecified (6) CVA (cerebral vascular accident) Code(s): I63.9 - CEREBRAL INFARCTION, UNSPECIFIED Qualifiers: CVA mechanism: unspecified Qualified Code(s): I63.9 - Cerebral infarction, unspecified (7) HTN (hypertension) Code(s): I10 - ESSENTIAL (PRIMARY) HYPERTENSION Qualifiers: Hypertension type: essential hypertension Qualified Code(s): I10 - Essential (primary) hypertension (8) Duodenitis Code(s): K29.80 - DUODENITIS WITHOUT BLEEDING 9 mrsa pneumonia plan mrsa pneumonia continue abx close monitoring resp support incentive shelby rest as per primary cc time 40 min
--- NOTE | 2017-03-26 16:58 | PN ---
Teaching Attending Note Name of Resident: Ramiro Harley (Nephrology) ATTENDING PHYSICIAN STATEMENT I saw and evaluated the patient. I reviewed the resident's note and discussed the case with the resident. I agree with the resident's findings and plan as documented. Current Medications Generic Name Dose Route Start Last Admin Trade Name Freq PRN Reason Stop Dose Admin Acetaminophen 650 mg 03/21/17 17:00 03/25/17 07:30 Tylenol - PO 650 mg Q4H PRN Administration FEVER OR PAIN Al Hydroxide/Mg Hydroxide 30 ml 03/23/17 12:00 03/26/17 06:44 Mylanta Oral Suspension - PO Not Given Q6HPO [facility] Albuterol Sulfate 1 amp 03/24/17 11:20 Ventolin 0.083% Nebulizer Soln - NEB Q4H PRN SHORT OF BREATH/WHEEZING Albuterol/Ipratropium 1 amp 03/21/17 12:00 03/26/17 11:15 Duoneb - NEB 1 amp QIDR [facility] Administration Amlodipine Besylate 10 mg 03/21/17 10:00 03/26/17 09:36 Norvasc - PO 10 mg DAILY [facility] Administration Atorvastatin Calcium 10 mg 03/21/17 22:00 03/25/17 22:09 Lipitor - PO 10 mg HS [facility] Administration Chlorhexidine Gluconate 1 applic 03/21/17 22:00 03/25/17 22:09 Hibiclens For Decolonization - TP 1 applic HS [facility] Administration Cholecalciferol 1,000 unit 03/21/17 10:00 03/26/17 09:37 Vitamin D3 - PO 1,000 unit DAILY [facility] Administration Cholestyramine Resin 4 gm 03/21/17 05:58 03/26/17 09:37 Questran Light Packet - PO 4 gm BID [facility] Administration Guaifenesin 600 mg 03/21/17 10:00 03/26/17 09:37 Mucinex - PO 600 mg BID [facility] Administration Hydralazine HCl 10 mg 03/22/17 11:15 03/26/17 09:36 Apresoline - PO 10 mg BID [facility] Administration Pantoprazole Sodium 100 mls @ 200 mls/hr 03/24/17 22:00 03/26/17 09:38 Protonix 40mg Ivpb (Pre-Docked) IVPB 200 mls/hr BID [facility] Administration Vancomycin HCl 1,250 mg/ 250 mls @ 166.667 mls/hr 03/26/17 14:00 Dextrose IVPB DAILY@1400 [facility] Protocol Levetiracetam 250 mg/ 750 mg 03/21/17 10:00 03/26/17 09:37 Levetiracetam 500 mg PO 750 mg BID [facility] Administration Loratadine 10 mg 03/21/17 10:00 03/26/17 09:38 Claritin - PO 10 mg DAILY [facility] Administration Methylprednisolone Sodium Succinate 40 mg 03/25/17 22:00 03/26/17 09:38 Solu-Medrol - IVPB 40 mg BID [facility] Administration Mometasone Furoate 1 puff 03/21/17 22:00 03/25/17 22:08 Asmanex 220mcg - IH 1 puff HS [facility] Administration Montelukast Sodium 10 mg 03/21/17 22:00 03/25/17 22:11 Singulair - PO 10 mg HS [facility] Administration Multi-Ingredient Ointment 1 applic 03/21/17 14:00 03/26/17 06:44 Zinc Oxide TP 1 applic TID [facility] Administration Mupirocin 1 applic 03/21/17 22:00 03/26/17 09:38 Bactroban Ointment (For Decolonization) - NS 03/26/17 21:59 1 applic BID [facility] Administration Nitroglycerin 0.4 mg 03/22/17 18:41 Nitrostat - SL [id number] PRN CHEST PAIN Non-Formulary Medication 4 each 03/21/17 10:00 Lipase/Protease/Amylase [Pancrease Ec Capsule] PO DAILY [facility] Nystatin 1 applic 03/21/17 10:00 03/26/17 09:39 Nystop Powder - TP 1 applic BID [facility] Administration Oxymetazoline HCl 2 spray 03/20/17 23:00 03/21/17 11:28 Afrin - NS 2 spray BID PRN Administration NASAL CONGESTION Solifenacin 10 mg 03/21/17 10:00 03/26/17 09:37 Vesicare - PO 10 mg DAILY [facility] Administration Tamsulosin HCl 0.4 mg 03/21/17 10:00 03/26/17 09:36 Flomax - PO 0.4 mg DAILY [facility] Administration Laboratory Tests 03/26/17 05:20 Potassium 4.6 Creatinine 1.0 Impression 1. YEISON has been resolving 2. Sepsis 3. hx CHF 4. COPD 5. CAD 6. hx CVA 7. anemia 8. hyperkalemia 9. GI bleed Plan - renal function stable - potassium stable - avoid nsaids and nephrotoxins - will follow PRN Dr Avelar Problem List - Problems (1) Acute and chronic respiratory failure with hypoxia Code(s): J96.21 - ACUTE AND CHRONIC RESPIRATORY FAILURE WITH HYPOXIA (2) GI bleed Code(s): K92.2 - GASTROINTESTINAL HEMORRHAGE, UNSPECIFIED
--- NOTE | 2017-03-26 18:53 | PN ---
Progress Note (short form) - Note Progress Note: Patient seen and examined. Breathing better as compared to yesterday. Awake, alert. Responds to verbal commands. Denies chest pain, palpitation. Afebrile. 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, TIA Cardiovascular: Yes: CAD, HTN Pulmonary: Yes: COPD Gastrointestinal: Yes: Other (HX OF PROGRESSIVE REGURGITATION FOR YEARS, PLACED ON OMEPRAZOLE BY PMD NO WORK UP EVER DONE DESPITE SYMPTOMS) Renal/: Yes: Cancer (prostate) - Past Surgical History Past Surgical History: Yes: Carotid Endarterectomy (carotid "stent" about 2 years go), Stent (carotid; denies cardiac stent) - Advance Directives Advance Directives: Yes: Living Will, Health Care Proxy, DNR - Smoking History Smoking history: Former smoker Have you smoked in the past 12 months: No Aproximately how many cigarettes per day: 0 If you are a former smoker, when did you quit?: over 20 years go - Alcohol/Substance Use Hx Alcohol Use: No - Social History ADL: Family Assistance History of Recent Travel: No Home Medications - Allergies Allergies/Adverse Reactions: Allergies Allergy/AdvReac Type Severity Reaction Status Date / Time Anesthetics - Angle Type- Allergy Unknown Verified 03/20/17 17:27 Parabens [Anesthetics - Angle Type] latex Allergy Verified 03/20/17 17:27 - Home Medications Home Medications: Ambulatory Orders Albuterol 0.083% Nebulizer Lela [Ventolin 0.083% Nebulizer Soln -] 1 neb NEB BID 09/30/14 Aspirin/Dipyridamole [Aggrenox -] 1 combo PO BID 09/30/14 Cholecalciferol (Vitamin D3) [Vitamin D3] 1,000 unit PO DAILY 09/30/14 Cholestyramine/Sucrose [Cholestyramine Packet] 4 gm PO BID PRN 09/30/14 Fluticasone Propionate [Flovent Hfa] 110 mg IH BID 09/30/14 Levetiracetam [Keppra -] 750 mg PO BID 09/30/14 Lipase/Protease/Amylase [Pancrease EC Capsule] 4 each PO DAILY 09/30/14 Loratadine 10 mg PO DAILY 09/30/14 Montelukast Na [Singulair -] 10 mg PO HS 09/30/14 Simvastatin [Zocor] 20 mg PO HS 09/30/14 Solifenacin Succinate [Vesicare] 10 mg PO DAILY 09/30/14 Tamsulosin HCl [Flomax -] 0.4 mg PO DAILY 09/30/14 Tiotropium [place] [Spiriva] 1 inh PO DAILY 09/30/14 Lipase/Protease/Amylase [Pancrelipase 5,000 Dr Capsule -] 2 each PO BIDWM #60 cap 10/06/14 Oxymetazoline 0.05% Nasal Soln [Afrin -] 2 spray NS BID PRN #7 spraybtl Ranitidine [Zantac -] 150 mg PO BID #30 tablet 10/06/14 Tramadol HCl 50 mg PO Q6H #20 tablet MDD 200mg 01/08/17 Amlodipine Besylate [Norvasc -] 10 mg PO DAILY #30 tablet 03/19/17 Azithromycin 500 mg PO DAILY #5 tablet 03/19/17 Cefuroxime Axetil [Ceftin -] 500 mg PO BID #14 tablet 03/19/17 Hydralazine HCl 10 mg PO BID #60 tablet 03/19/17 Prednisone [Deltasone -] See Taper PO DAILY #30 tablet 03/19/17 Menthol/Zinc Oxide [Calmoseptine Ointment] 71 gm TP QID 03/20/17 Nystatin Powder [Nystop Topical Powder -] 15 gm TP BID 03/20/17 Review of Systems - Review of Systems Constitutional: reports: Lethargy, Weakness Eyes: reports: No Symptoms HENT: reports: No Symptoms Neck: reports: Stiffness Cardiovascular: reports: Shortness of Breath Respiratory: reports: Cough, SOB, Wheezing Gastrointestinal: reports: Nausea Genitourinary: reports: No Symptoms Musculoskeletal: reports: Back Pain Neurological: reports: No Symptoms Physical Examination Vital Signs: Vital Signs Period Temp Pulse Resp BP Sys/Bush Pulse Ox Last 24 Hr 98 F-99.4 F 68-80 20-30 123-167/51-62 97-98 Constitutional: Yes: Moderate Distress, Obese Eyes: Yes: Conjunctiva Clear, EOM Intact HENT: Yes: Atraumatic, Normocephalic Neck: Yes: Supple, Trachea Midline Cardiovascular: Yes: Regular Rate and Rhythm Respiratory: Yes: Diminished (air entry decreased b/l lung base) Gastrointestinal: Yes: Normal Bowel Sounds, Soft ...Rectal Exam: Yes: Deferred Musculoskeletal: Yes: Back Pain Neurological: Yes: Alert, Oriented ...Motor Strength: WNL Psychiatric: Yes: Alert Imaging - Results Chest X-ray: Report Reviewed Cat Scan: Report Reviewed Active Medications Acetaminophen (Tylenol -) 650 mg PO Q4H PRN PRN Reason: FEVER OR PAIN Last Admin: 03/25/17 07:30 Dose: 650 mg Al Hydroxide/Mg Hydroxide (Mylanta Oral Suspension -) 30 ml PO Q6HPO [facility] Last Admin: 03/25/17 06:12 Dose: 30 ml Albuterol Sulfate (Ventolin 0.083% Nebulizer Soln -) 1 amp NEB Q4H PRN PRN Reason: SHORT OF BREATH/WHEEZING Albuterol Sulfate (Ventolin 0.083% Nebulizer Soln -) 2 amp NEB ONCE ONE Stop: 03/25/17 10:57 Albuterol/Ipratropium (Duoneb -) 1 amp NEB QIDR [facility] Last Admin: 03/25/17 06:00 Dose: 1 amp Amlodipine Besylate (Norvasc -) 10 mg PO DAILY [facility] Last Admin: 03/25/17 09:06 Dose: 10 mg Atorvastatin Calcium (Lipitor -) 10 mg PO HS [facility] Last Admin: 03/24/17 21:23 Dose: 10 mg Chlorhexidine Gluconate (Hibiclens For Decolonization -) 1 applic TP [facility] Last Admin: 03/24/17 21:24 Dose: 1 applic Cholecalciferol (Vitamin D3 -) 1,000 unit PO DAILY [facility] Last Admin: 03/25/17 09:06 Dose: 1,000 unit Cholestyramine Resin (Questran Light Packet -) 4 gm PO BID [facility] Last Admin: 03/25/17 09:07 Dose: 4 gm Guaifenesin (Mucinex -) 600 mg PO BID [facility] Last Admin: 03/25/17 09:05 Dose: 600 mg Hydralazine HCl (Apresoline -) 10 mg PO BID [facility] Last Admin: 03/25/17 09:07 Dose: 10 mg Metronidazole (Flagyl 500mg Premixed Ivpb -) 100 mls @ 100 mls/hr IVPB Q8H-IV [facility] Last Admin: 03/25/17 10:09 Dose: 100 mls/hr Pantoprazole Sodium (Protonix 40mg Ivpb (Pre-Docked)) 100 mls @ 200 mls/hr IVPB BID [facility] Last Admin: 03/25/17 09:00 Dose: 200 mls/hr Cefazolin Sodium (Ancef 1gm Ivpb (Pre-Docked)) 50 mls @ 100 mls/hr IVPB Q8H-IV [facility] Last Admin: 03/25/17 09:28 Dose: 100 mls/hr Levetiracetam 250 mg/ (Levetiracetam 500 mg) 750 mg PO BID [facility] Last Admin: 03/25/17 09:07 Dose: 750 mg Loratadine (Claritin -) 10 mg PO DAILY [facility] Last Admin: 03/25/17 09:06 Dose: 10 mg Methylprednisolone Sodium Succinate (Solu-Medrol -) 40 mg IVPB BID [facility] Mometasone Furoate (Asmanex 220mcg -) 1 puff IH [facility] Last Admin: 03/24/17 21:32 Dose: 1 puff Montelukast Sodium (Singulair -) 10 mg PO HS [facility] Last Admin: 03/24/17 21:23 Dose: 10 mg Multi-Ingredient Ointment (Zinc Oxide) 1 applic TP TID [facility] Last Admin: 03/25/17 06:12 Dose: 1 applic Mupirocin (Bactroban Ointment (For Decolonization) -) 1 applic NS BID [facility] Stop: 03/26/17 21:59 Last Admin: 03/25/17 09:30 Dose: 1 applic Nitroglycerin (Nitrostat -) 0.4 mg SL [id number] PRN PRN Reason: CHEST PAIN Non-Formulary Medication (Lipase/Protease/Amylase [Pancrease Ec Capsule]) 4 each PO DAILY [facility] Nystatin (Nystop Powder -) 1 applic TP BID [facility] Last Admin: 03/24/17 22:47 Dose: 1 applic Oxymetazoline HCl (Afrin -) 2 spray NS BID PRN PRN Reason: NASAL CONGESTION Last Admin: 03/21/17 11:28 Dose: 2 spray Solifenacin (Vesicare -) 10 mg PO DAILY [facility] Last Admin: 03/25/17 09:06 Dose: 10 mg Tamsulosin HCl (Flomax -) 0.4 mg PO DAILY [facility] Last Admin: 03/25/17 09:06 Dose: 0.4 mg Problem List - Problems (1) Pneumonia Assessment/Plan: Imroving. MSSA Pneumonia Antibiotic switched to Cefazolin. Pulmonary and ID follow up appreciated. Code(s): J18.9 - PNEUMONIA, UNSPECIFIED ORGANISM Qualifiers: Pneumonia type: due to unspecified organism Laterality: bilateral Lung location: lower lobe of lung Qualified Code(s): J18.9 - Pneumonia, unspecified organism (2) COPD exacerbation Assessment/Plan: With acute exacerbation. Improving. Continue O2 NC/Inhaled bronchodilators/Solumedrol. Pulmonary follow up appreciated. Code(s): J44.1 - CHRONIC OBSTRUCTIVE PULMONARY DISEASE W (ACUTE) EXACERBATION (3) YEISON (acute kidney injury) Assessment/Plan: Improving. Renal follow up appreciated. Code(s): N17.9 - ACUTE KIDNEY FAILURE, UNSPECIFIED (4) Acute respiratory failure Code(s): J96.00 - ACUTE RESPIRATORY FAILURE, UNSP W HYPOXIA OR HYPERCAPNIA Improving. Continue current management. BiPaP as needed. (5) CHF (congestive heart failure) Assessment/Plan: Stable. Chest x ray improved. Cardiology follow up appreciated. Will continue current management. Code(s): I50.9 - HEART FAILURE, UNSPECIFIED Qualifiers: Congestive heart failure type: unspecified congestive heart failure type Congestive heart failure chronicity: unspecified congestive heart failure chronicity Qualified Code(s): I50.9 - Heart failure, unspecified (6) CVA (cerebral vascular accident) Assessment/Plan: stable. Aggrenox on hold because of GI bleed Code(s): I63.9 - CEREBRAL INFARCTION, UNSPECIFIED Qualifiers: CVA mechanism: unspecified Qualified Code(s): I63.9 - Cerebral infarction, unspecified (7) HTN (hypertension) Code(s): I10 - ESSENTIAL (PRIMARY) HYPERTENSION Qualifiers: Hypertension type: essential hypertension Qualified Code(s): I10 - Essential (primary) hypertension Reasonable control. Continue current meds. (8) Duodenitis Assessment/Plan: CT Scan shows duodenitis. Patient with nausea, abdominal discomfort. GI follow up appreciated. Code(s): K29.80 - DUODENITIS WITHOUT BLEEDING 9) GI Bleed: S/P Transfusion. H/H stable. GI follow up appreciated. Problem List - Problems (1) Pneumonia Code(s): J18.9 - PNEUMONIA, UNSPECIFIED ORGANISM Qualifiers: Pneumonia type: due to unspecified organism Laterality: bilateral Lung location: lower lobe of lung Qualified Code(s): J18.9 - Pneumonia, unspecified organism (2) COPD exacerbation Code(s): J44.1 - CHRONIC OBSTRUCTIVE PULMONARY DISEASE W (ACUTE) EXACERBATION (3) YEISON (acute kidney injury) Code(s): N17.9 - ACUTE KIDNEY FAILURE, UNSPECIFIED (4) Acute respiratory failure Code(s): J96.00 - ACUTE RESPIRATORY FAILURE, UNSP W HYPOXIA OR HYPERCAPNIA Qualifiers: Respiratory failure complication: hypoxia Qualified Code(s): J96.01 - Acute respiratory failure with hypoxia (5) CHF (congestive heart failure) Code(s): I50.9 - HEART FAILURE, UNSPECIFIED Qualifiers: Congestive heart failure type: unspecified congestive heart failure type Congestive heart failure chronicity: unspecified congestive heart failure chronicity Qualified Code(s): I50.9 - Heart failure, unspecified (6) CVA (cerebral vascular accident) Code(s): I63.9 - CEREBRAL INFARCTION, UNSPECIFIED Qualifiers: CVA mechanism: unspecified Qualified Code(s): I63.9 - Cerebral infarction, unspecified (7) HTN (hypertension) Code(s): I10 - ESSENTIAL (PRIMARY) HYPERTENSION Qualifiers: Hypertension type: essential hypertension Qualified Code(s): I10 - Essential (primary) hypertension (8) Duodenitis Code(s): K29.80 - DUODENITIS WITHOUT BLEEDING
[2017-03-26] MEDS ORDERED: levETIRAcetam 250 MG TABLET (FP) PO ONE (22:53)
[2017-03-26] MEDS ORDERED: levETIRAcetam 500 MG TABLET (FP) PO ONE (22:54)
[2017-03-27] MEDS: MAG HYDROX/AL HYDROX/SIMETH 30 ML UNIT-DOSE CUP PO SCH ×3 (00:09→13:39)
[2017-03-27] MEDS: MONTELUKAST NA 10 MG TABLET PO SCH ×2 (00:10→22:01)
[2017-03-27] MEDS: hydrALAZINE HCL 10 MG TABLET PO SCH ×3 (00:10→22:01)
[2017-03-27] MEDS: ATORVASTATIN CA 10 MG TABLET (FP) PO SCH ×2 (00:10→22:01)
[2017-03-27] MEDS: guaiFENesin 600 MG TABLET.ER (FP) PO SCH ×3 (00:10→22:02)
[2017-03-27] MEDS: PANTOPRAZOLE SODIUM 100 ML IVPB SCH ×3 (00:10→22:02)
[2017-03-27] MEDS: LEVETIRACETAM 250 MG, LEVETIRACETAM 500 MG PO SCH ×3 (00:10→22:01)
[2017-03-27] MEDS: CHOLESTYRAMINE/ASPARTAME 4 GM PACKET PO SCH ×3 (00:10→22:01)
[2017-03-27] MEDS: methylPREDNISolone NA SUCC 40 MG/1 ML VIAL IVPB SCH ×3 (00:11→22:00)
[2017-03-27] MEDS: CHLORHEXIDINE GLUCONATE 4% CLEANSER FOR DECOLONIZATION TP SCH ×2 (00:11→22:03)
[2017-03-27] MEDS: MOMETASONE FUROATE 220 MCG/IH INHALER IH SCH ×2 (00:11→22:15)
[2017-03-27] MEDS: ZINC OXIDE 20% TOPICAL OINTMENT 30 GM TUBE TP SCH ×4 (00:11→22:03)
[2017-03-27] MEDS: NYSTATIN POWDER 100,000 UNITS/GM - 15 GM TOPICAL POWDER TP SCH ×3 (00:11→22:15)
[2017-03-27] MEDS: ALBUTEROL SO4 2.5/IPRATROPIUM 0.5 INH SOL 3 ML VIAL.NEB. NEB SCH ×5 (00:18→23:44)
[2017-03-27 08:24] LABS: MCH 29.9 pg (25.7-33.7); MCHC 33.1 g/dl (32.0-35.9); MEAN CELL VOLUME 90.5 fl (80-96); MEAN PLT VOLUME 7.3 fl (7.5-11.1); PLATELET COUNT 123 K/MM3 (134-434); RDW 16.7 % (11.9-15.9); WHITE BLOOD COUNT 12.2 K/mm3 (4.0-10.0)
--- NOTE | 2017-03-27 08:54 | PN ---
Progress Note, Physician Chief Complaint: alert CXR basically stable. says he is comfortable History of Present Illness: Blood pressure is reasonably controlled - Current Medication List Current Medications: Active Medications Acetaminophen (Tylenol -) 650 mg PO Q4H PRN PRN Reason: FEVER OR PAIN Last Admin: 03/25/17 07:30 Dose: 650 mg Al Hydroxide/Mg Hydroxide (Mylanta Oral Suspension -) 30 ml PO Q6HPO [facility] Last Admin: 03/27/17 07:39 Dose: Not Given Albuterol Sulfate (Ventolin 0.083% Nebulizer Soln -) 1 amp NEB Q4H PRN PRN Reason: SHORT OF BREATH/WHEEZING Albuterol/Ipratropium (Duoneb -) 1 amp NEB QIDR [facility] Last Admin: 03/27/17 06:18 Dose: 1 amp Amlodipine Besylate (Norvasc -) 10 mg PO DAILY [facility] Last Admin: 03/26/17 09:36 Dose: 10 mg Atorvastatin Calcium (Lipitor -) 10 mg PO HS [facility] Last Admin: 03/27/17 00:10 Dose: 10 mg Chlorhexidine Gluconate (Hibiclens For Decolonization -) 1 applic TP [facility] Last Admin: 03/27/17 00:11 Dose: Not Given Cholecalciferol (Vitamin D3 -) 1,000 unit PO DAILY [facility] Last Admin: 03/26/17 09:37 Dose: 1,000 unit Cholestyramine Resin (Questran Light Packet -) 4 gm PO BID [facility] Last Admin: 03/27/17 00:10 Dose: 4 gm Guaifenesin (Mucinex -) 600 mg PO BID [facility] Last Admin: 03/27/17 00:10 Dose: 600 mg Hydralazine HCl (Apresoline -) 10 mg PO BID [facility] Last Admin: 03/27/17 00:10 Dose: 10 mg Pantoprazole Sodium (Protonix 40mg Ivpb (Pre-Docked)) 100 mls @ 200 mls/hr IVPB BID [facility] Last Admin: 03/27/17 00:10 Dose: 200 mls/hr Vancomycin HCl 1,250 mg/ (Dextrose) 250 mls @ 166.667 mls/hr IVPB DAILY@1400 [facility] PRN Reason: Protocol Last Admin: 03/26/17 15:00 Dose: 166.667 mls/hr Levetiracetam 250 mg/ (Levetiracetam 500 mg) 750 mg PO BID [facility] Last Admin: 03/27/17 00:10 Dose: 750 mg Loratadine (Claritin -) 10 mg PO DAILY [facility] Last Admin: 03/26/17 09:38 Dose: 10 mg Methylprednisolone Sodium Succinate (Solu-Medrol -) 40 mg IVPB BID [facility] Last Admin: 03/27/17 00:11 Dose: 40 mg Mometasone Furoate (Asmanex 220mcg -) 1 puff IH [facility] Last Admin: 03/27/17 00:11 Dose: 1 puff Montelukast Sodium (Singulair -) 10 mg PO HS [facility] Last Admin: 03/27/17 00:10 Dose: 10 mg Multi-Ingredient Ointment (Zinc Oxide) 1 applic TP TID [facility] Last Admin: 03/27/17 00:11 Dose: 1 applic Nitroglycerin (Nitrostat -) 0.4 mg SL [id number] PRN PRN Reason: CHEST PAIN Non-Formulary Medication (Lipase/Protease/Amylase [Pancrease Ec Capsule]) 4 each PO DAILY [facility] Nystatin (Nystop Powder -) 1 applic TP BID [facility] Last Admin: 03/27/17 00:11 Dose: 1 applic Oxymetazoline HCl (Afrin -) 2 spray NS BID PRN PRN Reason: NASAL CONGESTION Last Admin: 03/21/17 11:28 Dose: 2 spray Solifenacin (Vesicare -) 10 mg PO DAILY [facility] Last Admin: 03/26/17 09:37 Dose: 10 mg Tamsulosin HCl (Flomax -) 0.4 mg PO DAILY [facility] Last Admin: 03/26/17 09:36 Dose: 0.4 mg - Objective Vital Signs: Vital Signs Temperature 98.9 F 03/27/17 06:00 Pulse Rate 81 03/27/17 06:00 Respiratory Rate 20 03/27/17 06:00 Blood Pressure 156/70 03/27/17 06:00 O2 Sat by Pulse Oximetry (%) 96 03/26/17 20:44 Constitutional: Yes: No Distress Eyes: Yes: Conjunctiva Clear Cardiovascular: Yes: Regular Rate and Rhythm Respiratory: Yes: Other (mild expiratory wheezing) Gastrointestinal: Yes: Soft (nontender), Abdomen, Obese Edema: Yes Edema: LLE: 1+, RLE: 1+ Labs: CBC, BMP 03/27/17 07:45 INR, PTT INR 1.03 (0.82-1.09) 03/22/17 05:15 Laboratory Tests 03/27/17 03/27/17 07:45 07:45 WBC 12.2 H Hgb 9.3 L Plt Count 123 L D Sodium Pending Potassium Pending Creatinine Pending Problem List - Problems (1) Pneumonia Code(s): J18.9 - PNEUMONIA, UNSPECIFIED ORGANISM Qualifiers: Pneumonia type: due to unspecified organism Laterality: bilateral Lung location: lower lobe of lung Qualified Code(s): J18.9 - Pneumonia, unspecified organism (2) COPD exacerbation Code(s): J44.1 - CHRONIC OBSTRUCTIVE PULMONARY DISEASE W (ACUTE) EXACERBATION (3) Respiratory distress Code(s): R06.00 - DYSPNEA, UNSPECIFIED (4) CVA (cerebral vascular accident) Code(s): I63.9 - CEREBRAL INFARCTION, UNSPECIFIED Qualifiers: CVA mechanism: unspecified Qualified Code(s): I63.9 - Cerebral infarction, unspecified (5) HTN (hypertension) Code(s): I10 - ESSENTIAL (PRIMARY) HYPERTENSION Qualifiers: Hypertension type: essential hypertension Qualified Code(s): I10 - Essential (primary) hypertension (6) Thoracic aneurysm without mention of rupture Code(s): I71.2 - THORACIC AORTIC ANEURYSM, WITHOUT RUPTURE Qualifiers: Presence of rupture: without rupture Qualified Code(s): I71.2 - Thoracic aortic aneurysm, without rupture (7) Peripheral arterial disease Code(s): I73.9 - PERIPHERAL VASCULAR DISEASE, UNSPECIFIED Assessment/Plan 89 year old man with a history of HTN, HLD, CAD, Chronic diastolic CHF, past CVA /TIA, COPD, Prostate Ca, PAD with recent admission for PNA/sepsis, COPD exacerbation now readmitted with respiratory distress, leukocytosis and CT showing bilateral MRSA PNA. SOB-AE COPD and bilateral MRSA PNA: -receiving supp O2 and Abx Chest pain- -pt reports chronic daily episodes of chest pain 4-5x per day attributed to a hiatal hernia and upon further detailed questioning occur consistently after eating meals. -Normal LV function -cardiac enzymes wnl, ekg not significantly changed from prior ekgs, no arrhythmias on tele -would start ASA 81mg daily if aggrenox no longer needed and if no contraindications -no bblocker given h/o sig conduction disease and COPD HTN-currently adequately controlled -Continue current meds Carotid stenosis-with reported stents and CEA -ASA 81mg daily if tolerated -cont statin
--- NOTE | 2017-03-27 09:31 | CONSULT ---
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 Cardiovascular: Yes: CAD, HTN Pulmonary: Yes: COPD Gastrointestinal: Yes: Other (HX OF PROGRESSIVE REGURGITATION FOR YEARS, PLACED ON OMEPRAZOLE BY PMD NO WORK UP EVER DONE DESPITE SYMPTOMS) Renal/: Yes: Cancer (prostate) - Past Surgical History Past Surgical History: Yes: Carotid Endarterectomy (carotid "stent" about 2 years go), Stent (carotid; denies cardiac stent) - Advance Directives Advance Directives: Yes: Living Will, Health Care Proxy, DNR - Smoking History Smoking history: Former smoker Have you smoked in the past 12 months: No Aproximately how many cigarettes per day: 0 If you are a former smoker, when did you quit?: over 20 years go - Alcohol/Substance Use Hx Alcohol Use: No - Social History ADL: Family Assistance History of Recent Travel: No History - Admission Reason For Visit: RESPIRATORY DISTRESS - General Mental Status: Alert and Oriented (good historian. o x 3. Appropriate.), Awake and Alert, Able to Follow Commands Attention: Intact (eyes closed but able to open them. Followed all commands and responded to all questions.) Ability to Follow Directions: Good - Hearing Hearing: Functional Hearing Aide: No With Patient: No Speech Evaluation - Communication Primary Language: [place] Communication: Yes: Within Normal Limits Oral Expression Ability: Yes: No Impairment - Speech Production Intelligibility: Yes: WNL - Speech Characteristics Voice Loudness: Mildly Soft/Quiet Voice Pitch: Yes: Normal Voice Phonatory-based Quality: Yes: Dysphonia (slight, possibly secondary to overall weakness) Speech Pattern: Normal Speech Clarity: < 100% Nasal Resonance: Normal Articulation: Yes: Precise Voice, Other Observations: Yes: Progressively Weak Voice - Language/Verbal Expression Able to Respond to Simple Queries: Yes: WNL Able to Communicate Wants and Needs: Yes: WNL Functional Communication Status: Yes: WNL Attention: Yes: Intact - Memory/Perception FCI Memory: Yes: WNL Short Term Memory: Yes: WNL - Swallow Evaluation/Bedside Assessment Facial Symmetry at Rest: Symmetrical Facial Symmetry on Retraction: Symmetrical Facial Movement: Controlled Pucker Lips: Normal Smile: Normal Lingual Movement: Normal (c/o pain on tongue tip. Tongue cleaned this am and crust removed. Some yellowish/white crusting remains. Monitor for thrush), Symmetric Lingual Speed of Movement: Normal Lingual Movement Strgth Against Opposition: Normal Lingual Movement Characteristics: Normal Velopharyngeal Movement: Normal Laryngeal Movement: Labored,delay initiation Bolus Size: WFL Labial Seal: WFL Oral Prep Time: WFL A-P Transit: WFL Pocketing: None Timing of Swallow: Delayed Coughing/Throat Clear: Yes (thin and nectar)
--- NOTE | 2017-03-27 09:43 | PN ---
Progress Note, TAKE OFF MAN - Note Progress Note: 89 year old male seen at bedside for follow up to swallow eval with recommendations for dysphagia pureed and honey thicken liquids by TAKE OFF MAN Rik. Pt is reportedly being suctioned at time for coughing during meals. Seen during breakfast, pt is consuming pureed with assistance. Good acceptance, bolus formation and transport with adequate. Pharyngeal swallow is mildly delayed with no s/s of aspiration at this time. Pt given po trial of thicken liquids via spoon were unremarkable for dysphagia and or aspiration at this time. Pt had thin liquids on breakfast tray. Pt should be receiving thicken liquids. Chart review of diet order revealed that pt is receiving unrestricted liquids (thin). Recommendations: Continue dysphagia pureed change liquids to honey thicken liquids via spoon. . Crush medications in purees. Observe standard aspiration precautions. Consider nutritional supplements magic cup ensure pudding. Results given verbally to pharmacist in chargeMALLIKA Fung and to pcp via chart.
[2017-03-27] MEDS ORDERED: levETIRAcetam 500 MG TABLET (FP) PO ONE ×2 (09:45→21:53)
[2017-03-27] MEDS ORDERED: levETIRAcetam 250 MG TABLET (FP) PO ONE ×2 (09:45→21:53)
[2017-03-27 09:52] LABS: ALBUMIN 2.6 g/dl (3.4-5.0); ALK PHOS 52 U/L (45-117); ANION GAP 8 (8-16); BILIRUBIN,TOTAL 0.7 mg/dL (0.2-1.0); CALCIUM 7.9 mg/dL (8.5-10.1); CO2 28 mmol/L (21-32); CREATININE 0.9 mg/dL (0.7-1.3); GLUCOSE,RANDOM 141 mg/dL (74-106); SGOT/AST 16 U/L (15-37); SGPT/ALT 23 U/L (12-78); TOT PROT 5.1 g/dl (6.4-8.2)
[2017-03-27 09:57] LABS: PLATELET ESTIMATE ADEQUATE (NORMAL)
[2017-03-27] MEDS: CHOLECALCIFEROL (VITAMIN D3) 1,000 UNIT TABLET (FP) PO SCH (10:30)
[2017-03-27] MEDS: TAMSULOSIN HCL 0.4 MG CAP.ER.24H (FP) PO SCH (10:31)
[2017-03-27] MEDS: LORATADINE 10 MG TABLET PO SCH (10:31)
[2017-03-27] MEDS: SOLIFENACIN SUCCINATE 5 MG TAB (FP) PO SCH (10:31)
[2017-03-27] MEDS: amLODIPine BESYLATE 10 MG TABLET (FP) PO SCH (10:31)
--- NOTE | 2017-03-27 10:51 | PN ---
Progress Note (short form) - Note Progress Note: Patient seen and examined. Denies chest pain, shortness of breath, palpitation or dizziness. Afebrile. 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 Cardiovascular: Yes: CAD, HTN Pulmonary: Yes: COPD Gastrointestinal: Yes: Other (HX OF PROGRESSIVE REGURGITATION FOR YEARS, PLACED ON OMEPRAZOLE BY PMD NO WORK UP EVER DONE DESPITE SYMPTOMS) Renal/: Yes: Cancer (prostate) - Past Surgical History Past Surgical History: Yes: Carotid Endarterectomy (carotid "stent" about 2 years go), Stent (carotid; denies cardiac stent) - Advance Directives Advance Directives: Yes: Living Will, Health Care Proxy, DNR - Smoking History Smoking history: Former smoker Have you smoked in the past 12 months: No Aproximately how many cigarettes per day: 0 If you are a former smoker, when did you quit?: over 20 years go - Alcohol/Substance Use Hx Alcohol Use: No - Social History ADL: Family Assistance History of Recent Travel: No Home Medications - Allergies Allergies/Adverse Reactions: Allergies Allergy/AdvReac Type Severity Reaction Status Date / Time Anesthetics - Angle Type- Allergy Unknown Verified 03/20/17 17:27 Parabens [Anesthetics - Angle Type] latex Allergy Verified 03/20/17 17:27 - Home Medications Home Medications: Ambulatory Orders Albuterol 0.083% Nebulizer Lela [Ventolin 0.083% Nebulizer Soln -] 1 neb NEB BID 09/30/14 Aspirin/Dipyridamole [Aggrenox -] 1 combo PO BID 09/30/14 Cholecalciferol (Vitamin D3) [Vitamin D3] 1,000 unit PO DAILY 09/30/14 Cholestyramine/Sucrose [Cholestyramine Packet] 4 gm PO BID PRN 09/30/14 Fluticasone Propionate [Flovent Hfa] 110 mg IH BID 09/30/14 Levetiracetam [Keppra -] 750 mg PO BID 09/30/14 Lipase/Protease/Amylase [Pancrease EC Capsule] 4 each PO DAILY 09/30/14 Loratadine 10 mg PO DAILY 09/30/14 Montelukast Na [Singulair -] 10 mg PO HS 09/30/14 Simvastatin [Zocor] 20 mg PO HS 09/30/14 Solifenacin Succinate [Vesicare] 10 mg PO DAILY 09/30/14 Tamsulosin HCl [Flomax -] 0.4 mg PO DAILY 09/30/14 Tiotropium [place] [Spiriva] 1 inh PO DAILY 09/30/14 Lipase/Protease/Amylase [Pancrelipase 5,000 Dr Capsule -] 2 each PO BIDWM #60 cap 10/06/14 Oxymetazoline 0.05% Nasal Soln [Afrin -] 2 spray NS BID PRN #7 spraybtl Ranitidine [Zantac -] 150 mg PO BID #30 tablet 10/06/14 Tramadol HCl 50 mg PO Q6H #20 tablet MDD 200mg 01/08/17 Amlodipine Besylate [Norvasc -] 10 mg PO DAILY #30 tablet 03/19/17 Azithromycin 500 mg PO DAILY #5 tablet 03/19/17 Cefuroxime Axetil [Ceftin -] 500 mg PO BID #14 tablet 03/19/17 Hydralazine HCl 10 mg PO BID #60 tablet 03/19/17 Prednisone [Deltasone -] See Taper PO DAILY #30 tablet 03/19/17 Menthol/Zinc Oxide [Calmoseptine Ointment] 71 gm TP QID 03/20/17 Nystatin Powder [Nystop Topical Powder -] 15 gm TP BID 03/20/17 Review of Systems - Review of Systems Constitutional: reports: Lethargy, Weakness Eyes: reports: No Symptoms HENT: reports: No Symptoms Neck: reports: Stiffness Cardiovascular: reports: Shortness of Breath Respiratory: reports: Cough, SOB, Wheezing Gastrointestinal: reports: Nausea Genitourinary: reports: No Symptoms Musculoskeletal: reports: Back Pain Neurological: reports: No Symptoms Physical Examination Vital Signs: Vital Signs Period Temp Pulse Resp BP Sys/Bush Pulse Ox Last 24 Hr 98.4 F-98.9 F 70-81 20-30 136-169/51-74 96 Constitutional: Yes: Moderate Distress, Obese Eyes: Yes: Conjunctiva Clear, EOM Intact HENT: Yes: Atraumatic, Normocephalic Neck: Yes: Supple, Trachea Midline Cardiovascular: Yes: Regular Rate and Rhythm Respiratory: Yes: Diminished (air entry decreased b/l lung base) Gastrointestinal: Yes: Normal Bowel Sounds, Soft ...Rectal Exam: Yes: Deferred Musculoskeletal: Yes: Back Pain Neurological: Yes: Alert, Oriented ...Motor Strength: WNL Psychiatric: Yes: Alert Imaging - Results Chest X-ray: Report Reviewed Cat Scan: Report Reviewed Current Medications Acetaminophen (Tylenol -) 650 mg PO Q4H PRN PRN Reason: FEVER OR PAIN Last Admin: 03/25/17 07:30 Dose: 650 mg Al Hydroxide/Mg Hydroxide (Mylanta Oral Suspension -) 30 ml PO Q6HPO [facility] Last Admin: 03/27/17 07:39 Dose: Not Given Albuterol Sulfate (Ventolin 0.083% Nebulizer Soln -) 1 amp NEB Q4H PRN PRN Reason: SHORT OF BREATH/WHEEZING Albuterol/Ipratropium (Duoneb -) 1 amp NEB QIDR [facility] Last Admin: 03/27/17 06:18 Dose: 1 amp Amlodipine Besylate (Norvasc -) 10 mg PO DAILY [facility] Last Admin: 03/27/17 10:31 Dose: 10 mg Atorvastatin Calcium (Lipitor -) 10 mg PO HS [facility] Last Admin: 03/27/17 00:10 Dose: 10 mg Chlorhexidine Gluconate (Hibiclens For Decolonization -) 1 applic TP [facility] Last Admin: 03/27/17 00:11 Dose: Not Given Cholecalciferol (Vitamin D3 -) 1,000 unit PO DAILY [facility] Last Admin: 03/27/17 10:30 Dose: 1,000 unit Cholestyramine Resin (Questran Light Packet -) 4 gm PO BID [facility] Last Admin: 03/27/17 10:32 Dose: 4 gm Guaifenesin (Mucinex -) 600 mg PO BID [facility] Last Admin: 03/27/17 10:31 Dose: 600 mg Hydralazine HCl (Apresoline -) 10 mg PO BID [facility] Last Admin: 03/27/17 10:31 Dose: 10 mg Pantoprazole Sodium (Protonix 40mg Ivpb (Pre-Docked)) 100 mls @ 200 mls/hr IVPB BID [facility] Last Admin: 03/27/17 10:32 Dose: 200 mls/hr Vancomycin HCl 1,250 mg/ (Dextrose) 250 mls @ 166.667 mls/hr IVPB DAILY@1400 CAREY PRN Reason: Protocol Last Admin: 03/26/17 15:00 Dose: 166.667 mls/hr Levetiracetam 250 mg/ (Levetiracetam 500 mg) 750 mg PO BID [facility] Last Admin: 03/27/17 10:30 Dose: 750 mg Loratadine (Claritin -) 10 mg PO DAILY [facility] Last Admin: 03/27/17 10:31 Dose: 10 mg Methylprednisolone Sodium Succinate (Solu-Medrol -) 40 mg IVPB BID [facility] Last Admin: 03/27/17 10:32 Dose: 40 mg Mometasone Furoate (Asmanex 220mcg -) 1 puff IH [facility] Last Admin: 03/27/17 00:11 Dose: 1 puff Montelukast Sodium (Singulair -) 10 mg PO [facility] Last Admin: 03/27/17 00:10 Dose: 10 mg Multi-Ingredient Ointment (Zinc Oxide) 1 applic TP TID [facility] Last Admin: 03/27/17 00:11 Dose: 1 applic Nitroglycerin (Nitrostat -) 0.4 mg SL [id number] PRN PRN Reason: CHEST PAIN Non-Formulary Medication (Lipase/Protease/Amylase [Pancrease Ec Capsule]) 4 each PO DAILY [facility] Nystatin (Nystop Powder -) 1 applic TP BID [facility] Last Admin: 03/27/17 10:33 Dose: 1 applic Oxymetazoline HCl (Afrin -) 2 spray NS BID PRN PRN Reason: NASAL CONGESTION Last Admin: 03/21/17 11:28 Dose: 2 spray Solifenacin (Vesicare -) 10 mg PO DAILY [facility] Last Admin: 03/27/17 10:31 Dose: 10 mg Tamsulosin HCl (Flomax -) 0.4 mg PO DAILY [facility] Last Admin: 03/27/17 10:31 Dose: 0.4 mg Problem List - Problems (1) Pneumonia Assessment/Plan: Imroving. MSSA Pneumonia Continue IV abx. Pulmonary and ID follow up appreciated. Code(s): J18.9 - PNEUMONIA, UNSPECIFIED ORGANISM Qualifiers: Pneumonia type: due to unspecified organism Laterality: bilateral Lung location: lower lobe of lung Qualified Code(s): J18.9 - Pneumonia, unspecified organism (2) COPD exacerbation Assessment/Plan: With acute exacerbation. Improving. Continue O2 NC/Inhaled bronchodilators/Solumedrol. Management per pulmonary. Code(s): J44.1 - CHRONIC OBSTRUCTIVE PULMONARY DISEASE W (ACUTE) EXACERBATION (3) YEISON (acute kidney injury) Assessment/Plan: Improving. Renal follow up appreciated. Code(s): N17.9 - ACUTE KIDNEY FAILURE, UNSPECIFIED (4) Acute respiratory failure Code(s): J96.00 - ACUTE RESPIRATORY FAILURE, UNSP W HYPOXIA OR HYPERCAPNIA Improving. Continue current management. BiPaP as needed. (5) CHF (congestive heart failure) Assessment/Plan: Stable. Chest x ray improved. Cardiology follow up appreciated. Will continue current management. Code(s): I50.9 - HEART FAILURE, UNSPECIFIED Qualifiers: Congestive heart failure type: unspecified congestive heart failure type Congestive heart failure chronicity: unspecified congestive heart failure chronicity Qualified Code(s): I50.9 - Heart failure, unspecified (6) CVA (cerebral vascular accident) Assessment/Plan: stable. Aggrenox on hold because of GI bleed Code(s): I63.9 - CEREBRAL INFARCTION, UNSPECIFIED Qualifiers: CVA mechanism: unspecified Qualified Code(s): I63.9 - Cerebral infarction, unspecified (7) HTN (hypertension) Code(s): I10 - ESSENTIAL (PRIMARY) HYPERTENSION Qualifiers: Hypertension type: essential hypertension Qualified Code(s): I10 - Essential (primary) hypertension Reasonable control. Continue current meds. (8) Duodenitis Assessment/Plan: CT Scan shows duodenitis. Patient with nausea, abdominal discomfort. GI follow up appreciated. Code(s): K29.80 - DUODENITIS WITHOUT BLEEDING 9) GI Bleed: S/P Transfusion. H/H improving. GI follow up appreciated. Problem List - Problems (1) Pneumonia Code(s): J18.9 - PNEUMONIA, UNSPECIFIED ORGANISM Qualifiers: Pneumonia type: due to unspecified organism Laterality: bilateral Lung location: lower lobe of lung Qualified Code(s): J18.9 - Pneumonia, unspecified organism (2) COPD exacerbation Code(s): J44.1 - CHRONIC OBSTRUCTIVE PULMONARY DISEASE W (ACUTE) EXACERBATION (3) YEISON (acute kidney injury) Code(s): N17.9 - ACUTE KIDNEY FAILURE, UNSPECIFIED (4) Acute respiratory failure Code(s): J96.00 - ACUTE RESPIRATORY FAILURE, UNSP W HYPOXIA OR HYPERCAPNIA Qualifiers: Respiratory failure complication: hypoxia Qualified Code(s): J96.01 - Acute respiratory failure with hypoxia (5) CHF (congestive heart failure) Code(s): I50.9 - HEART FAILURE, UNSPECIFIED Qualifiers: Congestive heart failure type: unspecified congestive heart failure type Congestive heart failure chronicity: unspecified congestive heart failure chronicity Qualified Code(s): I50.9 - Heart failure, unspecified (6) CVA (cerebral vascular accident) Code(s): I63.9 - CEREBRAL INFARCTION, UNSPECIFIED Qualifiers: CVA mechanism: unspecified Qualified Code(s): I63.9 - Cerebral infarction, unspecified (7) HTN (hypertension) Code(s): I10 - ESSENTIAL (PRIMARY) HYPERTENSION Qualifiers: Hypertension type: essential hypertension Qualified Code(s): I10 - Essential (primary) hypertension (8) Duodenitis Code(s): K29.80 - DUODENITIS WITHOUT BLEEDING
[2017-03-27] MEDS: VANCOMYCIN 1,250 MG in DEXTROSE 5%-WATER - 250 ML IVPB SCH (13:43)
--- NOTE | 2017-03-27 15:29 | PN ---
Progress Note (short form) - Note Progress Note: NAD on NC O2. Breathing seems to be improving. Intake & Output 03/24/17 03/25/17 03/26/17 03/27/17 23:59 23:59 23:59 23:59 Intake Total 1939 1949 300 250 Output Total 850 Balance 1939 1949 300 -600 Weight 194 lb 9.6 oz 195 lb 5 oz 194 lb 8 oz 201 lb 2 oz Last Vital Signs Temp Pulse Resp BP Pulse Ox 98.1 F 82 20 111/56 95 03/27/17 14:00 03/27/17 14:00 03/27/17 14:00 03/27/17 14:00 03/27/17 12:06 Active Medications Acetaminophen (Tylenol -) 650 mg PO Q4H PRN PRN Reason: FEVER OR PAIN Last Admin: 03/25/17 07:30 Dose: 650 mg Al Hydroxide/Mg Hydroxide (Mylanta Oral Suspension -) 30 ml PO Q6HPO [facility] Last Admin: 03/27/17 13:39 Dose: Not Given Albuterol Sulfate (Ventolin 0.083% Nebulizer Soln -) 1 amp NEB Q4H PRN PRN Reason: SHORT OF BREATH/WHEEZING Albuterol/Ipratropium (Duoneb -) 1 amp NEB QIDR [facility] Last Admin: 03/27/17 12:08 Dose: 1 amp Amlodipine Besylate (Norvasc -) 10 mg PO DAILY [facility] Last Admin: 03/27/17 10:31 Dose: 10 mg Atorvastatin Calcium (Lipitor -) 10 mg PO [facility] Last Admin: 03/27/17 00:10 Dose: 10 mg Chlorhexidine Gluconate (Hibiclens For Decolonization -) 1 applic TP [facility] Last Admin: 03/27/17 00:11 Dose: Not Given Cholecalciferol (Vitamin D3 -) 1,000 unit PO DAILY [facility] Last Admin: 03/27/17 10:30 Dose: 1,000 unit Cholestyramine Resin (Questran Light Packet -) 4 gm PO BID [facility] Last Admin: 03/27/17 10:32 Dose: 4 gm Guaifenesin (Mucinex -) 600 mg PO BID [facility] Last Admin: 03/27/17 10:31 Dose: 600 mg Hydralazine HCl (Apresoline -) 10 mg PO BID [facility] Last Admin: 03/27/17 10:31 Dose: 10 mg Pantoprazole Sodium (Protonix 40mg Ivpb (Pre-Docked)) 100 mls @ 200 mls/hr IVPB BID [facility] Last Admin: 03/27/17 10:32 Dose: 200 mls/hr Vancomycin HCl 1,250 mg/ (Dextrose) 250 mls @ 166.667 mls/hr IVPB DAILY@1400 CAREY PRN Reason: Protocol Last Admin: 03/27/17 13:43 Dose: 166.667 mls/hr Levetiracetam 250 mg/ (Levetiracetam 500 mg) 750 mg PO BID [facility] Last Admin: 03/27/17 10:30 Dose: 750 mg Loratadine (Claritin -) 10 mg PO DAILY [facility] Last Admin: 03/27/17 10:31 Dose: 10 mg Methylprednisolone Sodium Succinate (Solu-Medrol -) 40 mg IVPB BID [facility] Last Admin: 03/27/17 10:32 Dose: 40 mg Mometasone Furoate (Asmanex 220mcg -) 1 puff IH [facility] Last Admin: 03/27/17 00:11 Dose: 1 puff Montelukast Sodium (Singulair -) 10 mg PO [facility] Last Admin: 03/27/17 00:10 Dose: 10 mg Multi-Ingredient Ointment (Zinc Oxide) 1 applic TP TID [facility] Last Admin: 03/27/17 13:39 Dose: 1 applic Nitroglycerin (Nitrostat -) 0.4 mg SL [id number] PRN PRN Reason: CHEST PAIN Non-Formulary Medication (Lipase/Protease/Amylase [Pancrease Ec Capsule]) 4 each PO DAILY [facility] Nystatin (Nystop Powder -) 1 applic TP BID [facility] Last Admin: 03/27/17 10:33 Dose: 1 applic Oxymetazoline HCl (Afrin -) 2 spray NS BID PRN PRN Reason: NASAL CONGESTION Last Admin: 03/21/17 11:28 Dose: 2 spray Solifenacin (Vesicare -) 10 mg PO DAILY [facility] Last Admin: 03/27/17 10:31 Dose: 10 mg Tamsulosin HCl (Flomax -) 0.4 mg PO DAILY [facility] Last Admin: 03/27/17 10:31 Dose: 0.4 mg Gen: NAD Heart: RRR Lung: scattered rhonchi Abd: soft, nontender Ext: no edema Laboratory Results - last 24 hr 03/27/17 03/27/17 07:45 07:45 WBC 12.2 H RBC 3.11 L Hgb 9.3 L Hct 28.2 L MCV 90.5 MCH 29.9 MCHC 33.1 RDW 16.7 H Plt Count 123 L D MPV 7.3 L Neutrophils % 96.0 H Lymphocytes % 3.0 L D Monocytes % 1.0 L Differential Comment Manual diff done Platelet Estimate Adequate Sodium 142 Potassium 4.5 Chloride 106 Carbon Dioxide 28 Anion Gap 8 BUN 36 H Creatinine 0.9 Creat Clearance w eGFR > 60 Random Glucose 141 H Calcium 7.9 L Total Bilirubin 0.7 AST 16 ALT 23 Alkaline Phosphatase 52 Total Protein 5.1 L Albumin 2.6 L ASSESSMENT AND PLAN: Acute on Chronic Hypoxic Respiratory Failure Pneumonia COPD Exacerbation CAD LV Diastolic Dysfunction GI Bleed Anemia Lymphoma - antibiotics per ID - Steroid taper - inhaled bronchodilators - O2 to keep SpO2 >90% - aspiration precautions - PPI - NIPPV as needed to assist in work of breathing - DVT prophylaxis - Telemetry monitoring Dr Falk
--- NOTE | 2017-03-27 16:54 | PN ---
Progress Note, Physician History of Present Illness: stable off and on sob no complaints still continues to get confused - Current Medication List Current Medications: Active Medications Acetaminophen (Tylenol -) 650 mg PO Q4H PRN PRN Reason: FEVER OR PAIN Last Admin: 03/25/17 07:30 Dose: 650 mg Al Hydroxide/Mg Hydroxide (Mylanta Oral Suspension -) 30 ml PO Q6HPO [facility] Last Admin: 03/27/17 13:39 Dose: Not Given Albuterol Sulfate (Ventolin 0.083% Nebulizer Soln -) 1 amp NEB Q4H PRN PRN Reason: SHORT OF BREATH/WHEEZING Albuterol/Ipratropium (Duoneb -) 1 amp NEB QIDR [facility] Last Admin: 03/27/17 12:08 Dose: 1 amp Amlodipine Besylate (Norvasc -) 10 mg PO DAILY [facility] Last Admin: 03/27/17 10:31 Dose: 10 mg Atorvastatin Calcium (Lipitor -) 10 mg PO HS [facility] Last Admin: 03/27/17 00:10 Dose: 10 mg Chlorhexidine Gluconate (Hibiclens For Decolonization -) 1 applic TP [facility] Last Admin: 03/27/17 00:11 Dose: Not Given Cholecalciferol (Vitamin D3 -) 1,000 unit PO DAILY [facility] Last Admin: 03/27/17 10:30 Dose: 1,000 unit Cholestyramine Resin (Questran Light Packet -) 4 gm PO BID [facility] Last Admin: 03/27/17 10:32 Dose: 4 gm Guaifenesin (Mucinex -) 600 mg PO BID [facility] Last Admin: 03/27/17 10:31 Dose: 600 mg Hydralazine HCl (Apresoline -) 10 mg PO BID [facility] Last Admin: 03/27/17 10:31 Dose: 10 mg Pantoprazole Sodium (Protonix 40mg Ivpb (Pre-Docked)) 100 mls @ 200 mls/hr IVPB BID [facility] Last Admin: 03/27/17 10:32 Dose: 200 mls/hr Vancomycin HCl 1,250 mg/ (Dextrose) 250 mls @ 166.667 mls/hr IVPB DAILY@1400 CAREY PRN Reason: Protocol Last Admin: 03/27/17 13:43 Dose: 166.667 mls/hr Levetiracetam 250 mg/ (Levetiracetam 500 mg) 750 mg PO BID [facility] Last Admin: 03/27/17 10:30 Dose: 750 mg Loratadine (Claritin -) 10 mg PO DAILY [facility] Last Admin: 03/27/17 10:31 Dose: 10 mg Methylprednisolone Sodium Succinate (Solu-Medrol -) 40 mg IVPB BID [facility] Last Admin: 03/27/17 10:32 Dose: 40 mg Mometasone Furoate (Asmanex 220mcg -) 1 puff IH HS [facility] Last Admin: 03/27/17 00:11 Dose: 1 puff Montelukast Sodium (Singulair -) 10 mg PO HS [facility] Last Admin: 03/27/17 00:10 Dose: 10 mg Multi-Ingredient Ointment (Zinc Oxide) 1 applic TP TID [facility] Last Admin: 03/27/17 13:39 Dose: 1 applic Nitroglycerin (Nitrostat -) 0.4 mg SL [id number] PRN PRN Reason: CHEST PAIN Non-Formulary Medication (Lipase/Protease/Amylase [Pancrease Ec Capsule]) 4 each PO DAILY [facility] Nystatin (Nystop Powder -) 1 applic TP BID [facility] Last Admin: 03/27/17 10:33 Dose: 1 applic Oxymetazoline HCl (Afrin -) 2 spray NS BID PRN PRN Reason: NASAL CONGESTION Last Admin: 03/21/17 11:28 Dose: 2 spray Solifenacin (Vesicare -) 10 mg PO DAILY [facility] Last Admin: 03/27/17 10:31 Dose: 10 mg Tamsulosin HCl (Flomax -) 0.4 mg PO DAILY [facility] Last Admin: 03/27/17 10:31 Dose: 0.4 mg - Objective Vital Signs: Vital Signs Temperature 98.1 F 03/27/17 14:00 Pulse Rate 87 03/27/17 16:44 Respiratory Rate 20 03/27/17 14:00 Blood Pressure 111/56 03/27/17 14:00 O2 Sat by Pulse Oximetry (%) 94 L 03/27/17 16:44 Constitutional: Yes: No Distress, Calm Cardiovascular: Yes: Regular Rate and Rhythm, S1, S2 Respiratory: Yes: On Nasal O2, Poor Air Entry, Rhonchi Gastrointestinal: Yes: Normal Bowel Sounds, Soft Musculoskeletal: Yes: Other Extremities: Yes: Other Edema: LLE: Trace, RLE: Trace Neurological: Yes: Alert, Oriented Psychiatric: Yes: Alert, Oriented Labs: CBC, BMP 03/27/17 07:45 03/27/17 07:45 INR, PTT INR 1.03 (0.82-1.09) 03/22/17 05:15 Assessment/Plan Problem List - Problems (1) Pneumonia Code(s): J18.9 - PNEUMONIA, UNSPECIFIED ORGANISM Qualifiers: Pneumonia type: due to unspecified organism Laterality: bilateral Lung location: lower lobe of lung Qualified Code(s): J18.9 - Pneumonia, unspecified organism (2) COPD exacerbation Code(s): J44.1 - CHRONIC OBSTRUCTIVE PULMONARY DISEASE W (ACUTE) EXACERBATION (3) YEISON (acute kidney injury) Code(s): N17.9 - ACUTE KIDNEY FAILURE, UNSPECIFIED (4) Acute respiratory failure Code(s): J96.00 - ACUTE RESPIRATORY FAILURE, UNSP W HYPOXIA OR HYPERCAPNIA (5) CHF (congestive heart failure) Code(s): I50.9 - HEART FAILURE, UNSPECIFIED Qualifiers: Congestive heart failure type: unspecified congestive heart failure type Congestive heart failure chronicity: unspecified congestive heart failure chronicity Qualified Code(s): I50.9 - Heart failure, unspecified (6) CVA (cerebral vascular accident) Code(s): I63.9 - CEREBRAL INFARCTION, UNSPECIFIED Qualifiers: CVA mechanism: unspecified Qualified Code(s): I63.9 - Cerebral infarction, unspecified (7) HTN (hypertension) Code(s): I10 - ESSENTIAL (PRIMARY) HYPERTENSION Qualifiers: Hypertension type: essential hypertension Qualified Code(s): I10 - Essential (primary) hypertension (8) Duodenitis Code(s): K29.80 - DUODENITIS WITHOUT BLEEDING 9 mrsa pneumonia plan mrsa pneumonia continue abx continue to monitor trough rest as per primary
[2017-03-28] MEDS: ZINC OXIDE 20% TOPICAL OINTMENT 30 GM TUBE TP SCH ×3 (06:31→21:41)
[2017-03-28] MEDS: MAG HYDROX/AL HYDROX/SIMETH 30 ML UNIT-DOSE CUP PO SCH ×5 (06:32→23:15)
[2017-03-28] MEDS: ALBUTEROL SO4 2.5/IPRATROPIUM 0.5 INH SOL 3 ML VIAL.NEB. NEB SCH ×3 (06:58→17:10)
[2017-03-28 07:24] LABS: MCH 30.3 pg (25.7-33.7); MCHC 32.9 g/dl (32.0-35.9); MEAN CELL VOLUME 92.1 fl (80-96); MEAN PLT VOLUME 7.8 fl (7.5-11.1); PLATELET COUNT 125 K/MM3 (134-434); RDW 16.7 % (11.9-15.9); WHITE BLOOD COUNT 14.4 K/mm3 (4.0-10.0)
[2017-03-28 07:43] LABS: ALBUMIN 2.7 g/dl (3.4-5.0); ANION GAP 8 (8-16); CALCIUM 7.9 mg/dL (8.5-10.1); CO2 26 mmol/L (21-32); CREATININE 0.9 mg/dL (0.7-1.3); GLUCOSE,RANDOM 149 mg/dL (74-106); SGOT/AST 26 U/L (15-37); SGPT/ALT 31 U/L (12-78)
[2017-03-28 07:45] LABS: ALK PHOS 58 U/L (45-117); BILIRUBIN,TOTAL 0.6 mg/dL (0.2-1.0); TOT PROT 5.2 g/dl (6.4-8.2)
--- NOTE | 2017-03-28 08:41 | PN ---
Progress Note, Physician Chief Complaint: awake, no acute distress Feels slightly more SOB - Current Medication List Current Medications: Active Medications Acetaminophen (Tylenol -) 650 mg PO Q4H PRN PRN Reason: FEVER OR PAIN Last Admin: 03/25/17 07:30 Dose: 650 mg Al Hydroxide/Mg Hydroxide (Mylanta Oral Suspension -) 30 ml PO Q6HPO [facility] Last Admin: 03/28/17 06:32 Dose: Not Given Albuterol Sulfate (Ventolin 0.083% Nebulizer Soln -) 1 amp NEB Q4H PRN PRN Reason: SHORT OF BREATH/WHEEZING Albuterol/Ipratropium (Duoneb -) 1 amp NEB QIDR [facility] Last Admin: 03/28/17 06:58 Dose: 1 amp Amlodipine Besylate (Norvasc -) 10 mg PO DAILY [facility] Last Admin: 03/27/17 10:31 Dose: 10 mg Atorvastatin Calcium (Lipitor -) 10 mg PO HS [facility] Last Admin: 03/27/17 22:01 Dose: 10 mg Chlorhexidine Gluconate (Hibiclens For Decolonization -) 1 applic TP [facility] Last Admin: 03/27/17 22:03 Dose: 1 applic Cholecalciferol (Vitamin D3 -) 1,000 unit PO DAILY [facility] Last Admin: 03/27/17 10:30 Dose: 1,000 unit Cholestyramine Resin (Questran Light Packet -) 4 gm PO BID [facility] Last Admin: 03/27/17 22:01 Dose: 4 gm Guaifenesin (Mucinex -) 600 mg PO BID [facility] Last Admin: 03/27/17 22:02 Dose: 600 mg Hydralazine HCl (Apresoline -) 10 mg PO BID [facility] Last Admin: 03/27/17 22:01 Dose: 10 mg Pantoprazole Sodium (Protonix 40mg Ivpb (Pre-Docked)) 100 mls @ 200 mls/hr IVPB BID [facility] Last Admin: 03/27/17 22:02 Dose: 200 mls/hr Vancomycin HCl 1,250 mg/ (Dextrose) 250 mls @ 166.667 mls/hr IVPB DAILY@1400 CAREY PRN Reason: Protocol Last Admin: 03/27/17 13:43 Dose: 166.667 mls/hr Levetiracetam 250 mg/ (Levetiracetam 500 mg) 750 mg PO BID [facility] Last Admin: 03/27/17 22:01 Dose: 750 mg Loratadine (Claritin -) 10 mg PO DAILY [facility] Last Admin: 03/27/17 10:31 Dose: 10 mg Methylprednisolone Sodium Succinate (Solu-Medrol -) 40 mg IVPB BID [facility] Last Admin: 03/27/17 22:00 Dose: 40 mg Mometasone Furoate (Asmanex 220mcg -) 1 puff IH [facility] Last Admin: 03/27/17 22:15 Dose: 1 puff Montelukast Sodium (Singulair -) 10 mg PO HS [facility] Last Admin: 03/27/17 22:01 Dose: 10 mg Multi-Ingredient Ointment (Zinc Oxide) 1 applic TP TID [facility] Last Admin: 03/28/17 06:31 Dose: 1 applic Nitroglycerin (Nitrostat -) 0.4 mg SL [id number] PRN PRN Reason: CHEST PAIN Non-Formulary Medication (Lipase/Protease/Amylase [Pancrease Ec Capsule]) 4 each PO DAILY [facility] Nystatin (Nystop Powder -) 1 applic TP BID [facility] Last Admin: 03/27/17 22:15 Dose: 1 applic Oxymetazoline HCl (Afrin -) 2 spray NS BID PRN PRN Reason: NASAL CONGESTION Last Admin: 03/21/17 11:28 Dose: 2 spray Solifenacin (Vesicare -) 10 mg PO DAILY [facility] Last Admin: 03/27/17 10:31 Dose: 10 mg Tamsulosin HCl (Flomax -) 0.4 mg PO DAILY [facility] Last Admin: 03/27/17 10:31 Dose: 0.4 mg - Objective Vital Signs: Vital Signs Temperature 98.0 F 03/28/17 01:00 Pulse Rate 71 03/28/17 05:00 Respiratory Rate 20 03/28/17 05:00 Blood Pressure 161/68 03/28/17 05:00 O2 Sat by Pulse Oximetry (%) 94 L 03/27/17 20:18 Constitutional: Yes: Calm Eyes: Yes: Conjunctiva Clear Cardiovascular: Yes: Regular Rate and Rhythm Respiratory: Yes: Other (bilateral rhonchi) Gastrointestinal: Yes: Soft (nontender) Edema: No Neurological: Yes: Alert Labs: CBC, BMP 03/28/17 05:35 03/28/17 05:35 INR, PTT INR 1.03 (0.82-1.09) 03/22/17 05:15 Laboratory Tests 03/28/17 03/28/17 05:35 05:35 WBC 14.4 H Hgb 9.8 L Plt Count 125 L Sodium 142 Potassium 4.8 BUN 37 H Creatinine 0.9 Random Glucose 149 H Problem List - Problems (1) Pneumonia Code(s): J18.9 - PNEUMONIA, UNSPECIFIED ORGANISM Qualifiers: Pneumonia type: due to unspecified organism Laterality: bilateral Lung location: lower lobe of lung Qualified Code(s): J18.9 - Pneumonia, unspecified organism (2) COPD exacerbation Code(s): J44.1 - CHRONIC OBSTRUCTIVE PULMONARY DISEASE W (ACUTE) EXACERBATION (3) Respiratory distress Code(s): R06.00 - DYSPNEA, UNSPECIFIED (4) CVA (cerebral vascular accident) Code(s): I63.9 - CEREBRAL INFARCTION, UNSPECIFIED Qualifiers: CVA mechanism: unspecified Qualified Code(s): I63.9 - Cerebral infarction, unspecified (5) HTN (hypertension) Code(s): I10 - ESSENTIAL (PRIMARY) HYPERTENSION Qualifiers: Hypertension type: essential hypertension Qualified Code(s): I10 - Essential (primary) hypertension (6) Thoracic aneurysm without mention of rupture Code(s): I71.2 - THORACIC AORTIC ANEURYSM, WITHOUT RUPTURE Qualifiers: Presence of rupture: without rupture Qualified Code(s): I71.2 - Thoracic aortic aneurysm, without rupture (7) Peripheral arterial disease Code(s): I73.9 - PERIPHERAL VASCULAR DISEASE, UNSPECIFIED Assessment/Plan Assessment/Plan 89 year old man with a history of HTN, HLD, CAD, Chronic diastolic CHF, past CVA /TIA, COPD, Prostate Ca, PAD with recent admission for PNA/sepsis, COPD exacerbation now readmitted with respiratory distress, leukocytosis and CT showing bilateral MRSA PNA. SOB-AE COPD and bilateral MRSA PNA: -receiving supp O2 and Abx Chest/Epigastric pain- -pt reports chronic daily episodes of chest pain 4-5x per day attributed to a hiatal hernia and upon further detailed questioning occur consistently after eating meals. CT scan shows duodenitits. -Normal LV function -cardiac enzymes wnl, ekg not significantly changed from prior ekgs, no arrhythmias on tele -ASA held due to duodenitis/GI bleed. -no bblocker given h/o sig conduction disease and COPD HTN-currently adequately controlled -Continue current meds Carotid stenosis-with reported stents and CEA -ASA 81mg daily if/when tolerated (see above)
[2017-03-28] MEDS ORDERED: levETIRAcetam 500 MG TABLET (FP) PO ONE (10:59)
[2017-03-28] MEDS ORDERED: levETIRAcetam 250 MG TABLET (FP) PO ONE (10:59)
[2017-03-28] MEDS ORDERED: PT OWN MED DRAWER 7, Y5N ONE ×2 (10:59→22:52)
--- NOTE | 2017-03-28 11:00 | PN ---
Progress Note, Physician History of Present Illness: PULMONARY ALERT,ON NASAL O2 ,LESS DYSPNEIC - Current Medication List Current Medications: Active Medications Acetaminophen (Tylenol -) 650 mg PO Q4H PRN PRN Reason: FEVER OR PAIN Last Admin: 03/25/17 07:30 Dose: 650 mg Al Hydroxide/Mg Hydroxide (Mylanta Oral Suspension -) 30 ml PO Q6HPO [facility] Last Admin: 03/28/17 06:32 Dose: Not Given Albuterol Sulfate (Ventolin 0.083% Nebulizer Soln -) 1 amp NEB Q4H PRN PRN Reason: SHORT OF BREATH/WHEEZING Albuterol/Ipratropium (Duoneb -) 1 amp NEB QIDR [facility] Last Admin: 03/28/17 06:58 Dose: 1 amp Amlodipine Besylate (Norvasc -) 10 mg PO DAILY [facility] Last Admin: 03/27/17 10:31 Dose: 10 mg Atorvastatin Calcium (Lipitor -) 10 mg PO HS [facility] Last Admin: 03/27/17 22:01 Dose: 10 mg Chlorhexidine Gluconate (Hibiclens For Decolonization -) 1 applic TP [facility] Last Admin: 03/27/17 22:03 Dose: 1 applic Cholecalciferol (Vitamin D3 -) 1,000 unit PO DAILY [facility] Last Admin: 03/27/17 10:30 Dose: 1,000 unit Cholestyramine Resin (Questran Light Packet -) 4 gm PO BID [facility] Last Admin: 03/27/17 22:01 Dose: 4 gm Guaifenesin (Mucinex -) 600 mg PO BID [facility] Last Admin: 03/27/17 22:02 Dose: 600 mg Hydralazine HCl (Apresoline -) 10 mg PO BID [facility] Last Admin: 03/27/17 22:01 Dose: 10 mg Pantoprazole Sodium (Protonix 40mg Ivpb (Pre-Docked)) 100 mls @ 200 mls/hr IVPB BID [facility] Last Admin: 03/27/17 22:02 Dose: 200 mls/hr Vancomycin HCl 1,250 mg/ (Dextrose) 250 mls @ 166.667 mls/hr IVPB DAILY@1400 CAREY PRN Reason: Protocol Last Admin: 03/27/17 13:43 Dose: 166.667 mls/hr Levetiracetam 250 mg/ (Levetiracetam 500 mg) 750 mg PO BID [facility] Last Admin: 03/27/17 22:01 Dose: 750 mg Loratadine (Claritin -) 10 mg PO DAILY [facility] Last Admin: 03/27/17 10:31 Dose: 10 mg Methylprednisolone Sodium Succinate (Solu-Medrol -) 40 mg IVPB BID [facility] Last Admin: 03/27/17 22:00 Dose: 40 mg Mometasone Furoate (Asmanex 220mcg -) 1 puff IH [facility] Last Admin: 03/27/17 22:15 Dose: 1 puff Montelukast Sodium (Singulair -) 10 mg PO HS [facility] Last Admin: 03/27/17 22:01 Dose: 10 mg Multi-Ingredient Ointment (Zinc Oxide) 1 applic TP TID [facility] Last Admin: 03/28/17 06:31 Dose: 1 applic Nitroglycerin (Nitrostat -) 0.4 mg SL [id number] PRN PRN Reason: CHEST PAIN Non-Formulary Medication (Lipase/Protease/Amylase [Pancrease Ec Capsule]) 4 each PO DAILY [facility] Nystatin (Nystop Powder -) 1 applic TP BID [facility] Last Admin: 03/27/17 22:15 Dose: 1 applic Oxymetazoline HCl (Afrin -) 2 spray NS BID PRN PRN Reason: NASAL CONGESTION Last Admin: 03/21/17 11:28 Dose: 2 spray Solifenacin (Vesicare -) 10 mg PO DAILY [facility] Last Admin: 03/27/17 10:31 Dose: 10 mg Tamsulosin HCl (Flomax -) 0.4 mg PO DAILY [facility] Last Admin: 03/27/17 10:31 Dose: 0.4 mg - Objective Vital Signs: Vital Signs Temperature 98 F 03/28/17 08:53 Pulse Rate 69 03/28/17 08:53 Respiratory Rate 20 03/28/17 08:53 Blood Pressure 168/67 03/28/17 08:53 O2 Sat by Pulse Oximetry (%) 94 L 03/27/17 20:18 Constitutional: Yes: Well Nourished, Calm Eyes: Yes: WNL HENT: Yes: WNL Neck: Yes: WNL Cardiovascular: Yes: Regular Rate and Rhythm, S1, S2 Respiratory: Yes: Rhonchi (SCATTERED JUDITH RHONCHI) Gastrointestinal: Yes: Normal Bowel Sounds, Soft Extremities: Yes: WNL Edema: Yes Labs: CBC, BMP 03/28/17 05:35 03/28/17 05:35 INR, PTT INR 1.03 (0.82-1.09) 03/22/17 05:15 Problem List - Problems (1) COPD exacerbation Code(s): J44.1 - CHRONIC OBSTRUCTIVE PULMONARY DISEASE W (ACUTE) EXACERBATION (2) Duodenitis Code(s): K29.80 - DUODENITIS WITHOUT BLEEDING (3) GI bleed Code(s): K92.2 - GASTROINTESTINAL HEMORRHAGE, UNSPECIFIED (4) Peripheral arterial disease Code(s): I73.9 - PERIPHERAL VASCULAR DISEASE, UNSPECIFIED (5) Pneumonia Code(s): J18.9 - PNEUMONIA, UNSPECIFIED ORGANISM Qualifiers: Pneumonia type: due to unspecified organism Laterality: bilateral Lung location: lower lobe of lung Qualified Code(s): J18.9 - Pneumonia, unspecified organism (6) Respiratory distress Code(s): R06.00 - DYSPNEA, UNSPECIFIED (7) YEISON (acute kidney injury) Code(s): N17.9 - ACUTE KIDNEY FAILURE, UNSPECIFIED (8) CAD (coronary artery disease) Code(s): I25.10 - ATHSCL HEART DISEASE OF [place] CORONARY ARTERY W/O ANG PCTRS Qualifiers: Coronary Disease-Associated Artery/Lesion type: [place] artery [place] vs. transplanted heart: [place] heart Associated angina: angina presence unspecified Qualified Code(s): I25.10 - Atherosclerotic heart disease of [place] coronary artery without angina pectoris (9) CHF (congestive heart failure) Code(s): I50.9 - HEART FAILURE, UNSPECIFIED Qualifiers: Congestive heart failure type: unspecified congestive heart failure type Congestive heart failure chronicity: unspecified congestive heart failure chronicity Qualified Code(s): I50.9 - Heart failure, unspecified (10) CVA (cerebral vascular accident) Code(s): I63.9 - CEREBRAL INFARCTION, UNSPECIFIED Qualifiers: CVA mechanism: unspecified Qualified Code(s): I63.9 - Cerebral infarction, unspecified (11) Acute and chronic respiratory failure with hypoxia Code(s): J96.21 - ACUTE AND CHRONIC RESPIRATORY FAILURE WITH HYPOXIA (12) Thoracic aneurysm without mention of rupture Code(s): I71.2 - THORACIC AORTIC ANEURYSM, WITHOUT RUPTURE Qualifiers: Presence of rupture: without rupture Qualified Code(s): I71.2 - Thoracic aortic aneurysm, without rupture (13) Acute respiratory failure Code(s): J96.00 - ACUTE RESPIRATORY FAILURE, UNSP W HYPOXIA OR HYPERCAPNIA Qualifiers: Respiratory failure complication: hypoxia Qualified Code(s): J96.01 - Acute respiratory failure with hypoxia Assessment/Plan ASSESSMENT AND PLAN: Acute on Chronic Hypoxic Respiratory Failure Pneumonia COPD Exacerbation CAD LV Diastolic Dysfunction GI Bleed Anemia Lymphoma - antibiotics per ID - medrol - inhaled bronchodilators - O2 to keep SpO2 >90% - aspiration precautions - continue protonix - BiPAP as needed to assist in work of breathing - DVT prophylaxis DR CHILD
[2017-03-28] MEDS: CHOLECALCIFEROL (VITAMIN D3) 1,000 UNIT TABLET (FP) PO SCH (11:07)
[2017-03-28] MEDS: CHOLESTYRAMINE/ASPARTAME 4 GM PACKET PO SCH ×2 (11:07→21:41)
[2017-03-28] MEDS: LORATADINE 10 MG TABLET PO SCH (11:07)
[2017-03-28] MEDS: methylPREDNISolone NA SUCC 40 MG/1 ML VIAL IVPB SCH ×2 (11:07→21:41)
[2017-03-28] MEDS: TAMSULOSIN HCL 0.4 MG CAP.ER.24H (FP) PO SCH (11:07)
[2017-03-28] MEDS: amLODIPine BESYLATE 10 MG TABLET (FP) PO SCH (11:07)
[2017-03-28] MEDS: PANTOPRAZOLE SODIUM 100 ML IVPB SCH (11:08)
[2017-03-28] MEDS: hydrALAZINE HCL 10 MG TABLET PO SCH (11:08)
[2017-03-28] MEDS: SOLIFENACIN SUCCINATE 5 MG TAB (FP) PO SCH (11:08)
[2017-03-28] MEDS: guaiFENesin 600 MG TABLET.ER (FP) PO SCH ×2 (11:08→21:38)
[2017-03-28] MEDS: LEVETIRACETAM 250 MG, LEVETIRACETAM 500 MG PO SCH ×2 (11:08→21:40)
[2017-03-28 11:31] LABS: PLATELET ESTIMATE ADEQUATE (NORMAL)
--- NOTE | 2017-03-28 13:09 | PN ---
Progress Note (short form) - Note Progress Note: No acute event overnight. Not in respiratory distress Denies chest pain, palpitation or dizziness. Afebrile. 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: CVA, Dementia, TIA Cardiovascular: Yes: CAD, HTN Pulmonary: Yes: COPD Gastrointestinal: Yes: Other (HX OF PROGRESSIVE REGURGITATION FOR YEARS, PLACED ON OMEPRAZOLE BY PMD NO WORK UP EVER DONE DESPITE SYMPTOMS) Renal/: Yes: Cancer (prostate) - Past Surgical History Past Surgical History: Yes: Carotid Endarterectomy (carotid "stent" about 2 years go), Stent (carotid; denies cardiac stent) - Advance Directives Advance Directives: Yes: Living Will, Health Care Proxy, DNR - Smoking History Smoking history: Former smoker Have you smoked in the past 12 months: No Aproximately how many cigarettes per day: 0 If you are a former smoker, when did you quit?: over 20 years go - Alcohol/Substance Use Hx Alcohol Use: No - Social History ADL: Family Assistance History of Recent Travel: No Home Medications - Allergies Allergies/Adverse Reactions: Allergies Allergy/AdvReac Type Severity Reaction Status Date / Time Anesthetics - Angle Type- Allergy Unknown Verified 03/20/17 17:27 Parabens [Anesthetics - Angle Type] latex Allergy Verified 03/20/17 17:27 - Home Medications Home Medications: Ambulatory Orders Albuterol 0.083% Nebulizer Lela [Ventolin 0.083% Nebulizer Soln -] 1 neb NEB BID 09/30/14 Aspirin/Dipyridamole [Aggrenox -] 1 combo PO BID 09/30/14 Cholecalciferol (Vitamin D3) [Vitamin D3] 1,000 unit PO DAILY 09/30/14 Cholestyramine/Sucrose [Cholestyramine Packet] 4 gm PO BID PRN 09/30/14 Fluticasone Propionate [Flovent Hfa] 110 mg IH BID 09/30/14 Levetiracetam [Keppra -] 750 mg PO BID 09/30/14 Lipase/Protease/Amylase [Pancrease EC Capsule] 4 each PO DAILY 09/30/14 Loratadine 10 mg PO DAILY 09/30/14 Montelukast Na [Singulair -] 10 mg PO HS 09/30/14 Simvastatin [Zocor] 20 mg PO HS 09/30/14 Solifenacin Succinate [Vesicare] 10 mg PO DAILY 09/30/14 Tamsulosin HCl [Flomax -] 0.4 mg PO DAILY 09/30/14 Tiotropium [place] [Spiriva] 1 inh PO DAILY 09/30/14 Lipase/Protease/Amylase [Pancrelipase 5,000 Dr Capsule -] 2 each PO BIDWM #60 cap 10/06/14 Oxymetazoline 0.05% Nasal Soln [Afrin -] 2 spray NS BID PRN #7 spraybtl Ranitidine [Zantac -] 150 mg PO BID #30 tablet 10/06/14 Tramadol HCl 50 mg PO Q6H #20 tablet MDD 200mg 01/08/17 Amlodipine Besylate [Norvasc -] 10 mg PO DAILY #30 tablet 03/19/17 Azithromycin 500 mg PO DAILY #5 tablet 03/19/17 Cefuroxime Axetil [Ceftin -] 500 mg PO BID #14 tablet 03/19/17 Hydralazine HCl 10 mg PO BID #60 tablet 03/19/17 Prednisone [Deltasone -] See Taper PO DAILY #30 tablet 03/19/17 Menthol/Zinc Oxide [Calmoseptine Ointment] 71 gm TP QID 03/20/17 Nystatin Powder [Nystop Topical Powder -] 15 gm TP BID 03/20/17 Review of Systems - Review of Systems Constitutional: reports: Lethargy, Weakness Eyes: reports: No Symptoms HENT: reports: No Symptoms Neck: reports: Stiffness Cardiovascular: reports: Shortness of Breath Respiratory: reports: Cough, SOB, Wheezing Gastrointestinal: reports: Nausea Genitourinary: reports: No Symptoms Musculoskeletal: reports: Back Pain Neurological: reports: No Symptoms Physical Examination Vital Signs: Vital Signs Period Temp Pulse Resp BP Sys/Bush Pulse Ox Last 24 Hr 98 F-99.1 F 69-87 20-20 111-168/48-68 94-94 Constitutional: Yes: Moderate Distress, Obese Eyes: Yes: Conjunctiva Clear, EOM Intact HENT: Yes: Atraumatic, Normocephalic Neck: Yes: Supple, Trachea Midline Cardiovascular: Yes: Regular Rate and Rhythm Respiratory: Yes: Diminished (air entry decreased b/l lung base) Gastrointestinal: Yes: Normal Bowel Sounds, Soft ...Rectal Exam: Yes: Deferred Musculoskeletal: Yes: Back Pain Neurological: Yes: Alert, Oriented ...Motor Strength: WNL Psychiatric: Yes: Alert Imaging - Results Chest X-ray: Report Reviewed Cat Scan: Report Reviewed Current Medications Acetaminophen (Tylenol -) 650 mg PO Q4H PRN PRN Reason: FEVER OR PAIN Last Admin: 03/25/17 07:30 Dose: 650 mg Al Hydroxide/Mg Hydroxide (Mylanta Oral Suspension -) 30 ml PO Q6HPO [facility] Last Admin: 03/27/17 07:39 Dose: Not Given Albuterol Sulfate (Ventolin 0.083% Nebulizer Soln -) 1 amp NEB Q4H PRN PRN Reason: SHORT OF BREATH/WHEEZING Albuterol/Ipratropium (Duoneb -) 1 amp NEB QIDR [facility] Last Admin: 03/27/17 06:18 Dose: 1 amp Amlodipine Besylate (Norvasc -) 10 mg PO DAILY [facility] Last Admin: 03/27/17 10:31 Dose: 10 mg Atorvastatin Calcium (Lipitor -) 10 mg PO HS [facility] Last Admin: 03/27/17 00:10 Dose: 10 mg Chlorhexidine Gluconate (Hibiclens For Decolonization -) [address] [facility] Last Admin: 03/27/17 00:11 Dose: Not Given Cholecalciferol (Vitamin D3 -) 1,000 unit PO DAILY [facility] Last Admin: 03/27/17 10:30 Dose: 1,000 unit Cholestyramine Resin (Questran Light Packet -) 4 gm PO BID [facility] Last Admin: 03/27/17 10:32 Dose: 4 gm Guaifenesin (Mucinex -) 600 mg PO BID [facility] Last Admin: 03/27/17 10:31 Dose: 600 mg Hydralazine HCl (Apresoline -) 10 mg PO BID [facility] Last Admin: 03/27/17 10:31 Dose: 10 mg Pantoprazole Sodium (Protonix 40mg Ivpb (Pre-Docked)) 100 mls @ 200 mls/hr IVPB BID [facility] Last Admin: 03/27/17 10:32 Dose: 200 mls/hr Vancomycin HCl 1,250 mg/ (Dextrose) 250 mls @ 166.667 mls/hr IVPB DAILY@1400 CAREY PRN Reason: Protocol Last Admin: 03/26/17 15:00 Dose: 166.667 mls/hr Levetiracetam 250 mg/ (Levetiracetam 500 mg) 750 mg PO BID [facility] Last Admin: 03/27/17 10:30 Dose: 750 mg Loratadine (Claritin -) 10 mg PO DAILY [facility] Last Admin: 03/27/17 10:31 Dose: 10 mg Methylprednisolone Sodium Succinate (Solu-Medrol -) 40 mg IVPB BID [facility] Last Admin: 03/27/17 10:32 Dose: 40 mg Mometasone Furoate (Asmanex 220mcg -) [address] [facility] Last Admin: 03/27/17 00:11 Dose: 1 puff Montelukast Sodium (Singulair -) [address] [facility] Last Admin: 03/27/17 00:10 Dose: 10 mg Multi-Ingredient Ointment (Zinc Oxide) 1 applic TP TID [facility] Last Admin: 03/27/17 00:11 Dose: 1 applic Nitroglycerin (Nitrostat -) 0.4 mg SL [id number] PRN PRN Reason: CHEST PAIN Non-Formulary Medication (Lipase/Protease/Amylase [Pancrease Ec Capsule]) 4 each PO DAILY [facility] Nystatin (Nystop Powder -) 1 applic TP BID [facility] Last Admin: 03/27/17 10:33 Dose: 1 applic Oxymetazoline HCl (Afrin -) 2 spray NS BID PRN PRN Reason: NASAL CONGESTION Last Admin: 03/21/17 11:28 Dose: 2 spray Solifenacin (Vesicare -) 10 mg PO DAILY [facility] Last Admin: 03/27/17 10:31 Dose: 10 mg Tamsulosin HCl (Flomax -) 0.4 mg PO DAILY [facility] Last Admin: 03/27/17 10:31 Dose: 0.4 mg Problem List - Problems (1) Pneumonia Assessment/Plan: Imroving. MSSA Pneumonia Continue IV abx. Pulmonary and ID follow up appreciated. Code(s): J18.9 - PNEUMONIA, UNSPECIFIED ORGANISM Qualifiers: Pneumonia type: due to unspecified organism Laterality: bilateral Lung location: lower lobe of lung Qualified Code(s): J18.9 - Pneumonia, unspecified organism (2) COPD exacerbation Assessment/Plan: Improving. Continue O2 NC/Inhaled bronchodilators/Solumedrol. Management per pulmonary. Code(s): J44.1 - CHRONIC OBSTRUCTIVE PULMONARY DISEASE W (ACUTE) EXACERBATION (3) YEISON (acute kidney injury) Assessment/Plan: Improving. Renal follow up appreciated. Code(s): N17.9 - ACUTE KIDNEY FAILURE, UNSPECIFIED (4) Acute respiratory failure Code(s): J96.00 - ACUTE RESPIRATORY FAILURE, UNSP W HYPOXIA OR HYPERCAPNIA Improving. Continue current management. BiPaP as needed. (5) CHF (congestive heart failure) Assessment/Plan: Stable. Chest x ray improved. Cardiology follow up appreciated. Will continue current management. Code(s): I50.9 - HEART FAILURE, UNSPECIFIED Qualifiers: Congestive heart failure type: unspecified congestive heart failure type Congestive heart failure chronicity: unspecified congestive heart failure chronicity Qualified Code(s): I50.9 - Heart failure, unspecified (6) CVA (cerebral vascular accident) Assessment/Plan: stable. Aggrenox on hold because of GI bleed Code(s): I63.9 - CEREBRAL INFARCTION, UNSPECIFIED Qualifiers: CVA mechanism: unspecified Qualified Code(s): I63.9 - Cerebral infarction, unspecified (7) HTN (hypertension) Code(s): I10 - ESSENTIAL (PRIMARY) HYPERTENSION Qualifiers: Hypertension type: essential hypertension Qualified Code(s): I10 - Essential (primary) hypertension Reasonable control. Continue current meds. (8) Duodenitis Assessment/Plan: CT Scan shows duodenitis. Patient with nausea, abdominal discomfort. GI follow up appreciated. Code(s): K29.80 - DUODENITIS WITHOUT BLEEDING 9) GI Bleed: S/P Transfusion. H/H improving. GI follow up appreciated. Problem List - Problems (1) Pneumonia Code(s): J18.9 - PNEUMONIA, UNSPECIFIED ORGANISM Qualifiers: Pneumonia type: due to unspecified organism Laterality: bilateral Lung location: lower lobe of lung Qualified Code(s): J18.9 - Pneumonia, unspecified organism (2) COPD exacerbation Code(s): J44.1 - CHRONIC OBSTRUCTIVE PULMONARY DISEASE W (ACUTE) EXACERBATION (3) YEISON (acute kidney injury) Code(s): N17.9 - ACUTE KIDNEY FAILURE, UNSPECIFIED (4) Acute respiratory failure Code(s): J96.00 - ACUTE RESPIRATORY FAILURE, UNSP W HYPOXIA OR HYPERCAPNIA Qualifiers: Respiratory failure complication: hypoxia Qualified Code(s): J96.01 - Acute respiratory failure with hypoxia (5) CHF (congestive heart failure) Code(s): I50.9 - HEART FAILURE, UNSPECIFIED Qualifiers: Congestive heart failure type: unspecified congestive heart failure type Congestive heart failure chronicity: unspecified congestive heart failure chronicity Qualified Code(s): I50.9 - Heart failure, unspecified (6) CVA (cerebral vascular accident) Code(s): I63.9 - CEREBRAL INFARCTION, UNSPECIFIED Qualifiers: CVA mechanism: unspecified Qualified Code(s): I63.9 - Cerebral infarction, unspecified (7) HTN (hypertension) Code(s): I10 - ESSENTIAL (PRIMARY) HYPERTENSION Qualifiers: Hypertension type: essential hypertension Qualified Code(s): I10 - Essential (primary) hypertension (8) Duodenitis Code(s): K29.80 - DUODENITIS WITHOUT BLEEDING
[2017-03-28] MEDS: NYSTATIN POWDER 100,000 UNITS/GM - 15 GM TOPICAL POWDER TP SCH ×2 (14:31→21:41)
[2017-03-28] MEDS: VANCOMYCIN 1,250 MG in DEXTROSE 5%-WATER - 250 ML IVPB SCH (14:31)
--- NOTE | 2017-03-28 15:38 | PN ---
Progress Note, Physician History of Present Illness: stable no new issues confusion - Current Medication List Current Medications: Active Medications Acetaminophen (Tylenol -) 650 mg PO Q4H PRN PRN Reason: FEVER OR PAIN Last Admin: 03/25/17 07:30 Dose: 650 mg Al Hydroxide/Mg Hydroxide (Mylanta Oral Suspension -) 30 ml PO Q6HPO [facility] Last Admin: 03/28/17 11:16 Dose: Not Given Albuterol Sulfate (Ventolin 0.083% Nebulizer Soln -) 1 amp NEB Q4H PRN PRN Reason: SHORT OF BREATH/WHEEZING Albuterol/Ipratropium (Duoneb -) 1 amp NEB QIDR [facility] Last Admin: 03/28/17 11:10 Dose: 1 amp Amlodipine Besylate (Norvasc -) 10 mg PO DAILY [facility] Last Admin: 03/28/17 11:07 Dose: 10 mg Atorvastatin Calcium (Lipitor -) 10 mg PO HS [facility] Last Admin: 03/27/17 22:01 Dose: 10 mg Chlorhexidine Gluconate (Hibiclens For Decolonization -) 1 applic TP [facility] Last Admin: 03/27/17 22:03 Dose: 1 applic Cholecalciferol (Vitamin D3 -) 1,000 unit PO DAILY [facility] Last Admin: 03/28/17 11:07 Dose: 1,000 unit Cholestyramine Resin (Questran Light Packet -) 4 gm PO BID [facility] Last Admin: 03/28/17 11:07 Dose: 4 gm Guaifenesin (Mucinex -) 600 mg PO BID [facility] Last Admin: 03/28/17 11:08 Dose: 600 mg Hydralazine HCl (Apresoline -) 25 mg PO BID [facility] Pantoprazole Sodium (Protonix 40mg Ivpb (Pre-Docked)) 100 mls @ 200 mls/hr IVPB BID [facility] Last Admin: 03/28/17 11:08 Dose: 200 mls/hr Vancomycin HCl 1,250 mg/ (Dextrose) 250 mls @ 166.667 mls/hr IVPB DAILY@1400 [facility] PRN Reason: Protocol Last Admin: 03/28/17 14:31 Dose: 166.667 mls/hr Levetiracetam 250 mg/ (Levetiracetam 500 mg) 750 mg PO BID [facility] Last Admin: 03/28/17 11:08 Dose: 750 mg Loratadine (Claritin -) 10 mg PO DAILY [facility] Last Admin: 03/28/17 11:07 Dose: 10 mg Methylprednisolone Sodium Succinate (Solu-Medrol -) 40 mg IVPB BID [facility] Last Admin: 03/28/17 11:07 Dose: 40 mg Mometasone Furoate (Asmanex 220mcg -) 1 puff IH HS [facility] Last Admin: 03/27/17 22:15 Dose: 1 puff Montelukast Sodium (Singulair -) 10 mg PO HS [facility] Last Admin: 03/27/17 22:01 Dose: 10 mg Multi-Ingredient Ointment (Zinc Oxide) 1 applic TP TID [facility] Last Admin: 03/28/17 14:32 Dose: 1 applic Nitroglycerin (Nitrostat -) 0.4 mg SL [id number] PRN PRN Reason: CHEST PAIN Non-Formulary Medication (Lipase/Protease/Amylase [Pancrease Ec Capsule]) 4 each PO DAILY [facility] Nystatin (Nystop Powder -) 1 applic TP BID [facility] Last Admin: 03/28/17 14:31 Dose: 1 applic Oxymetazoline HCl (Afrin -) 2 spray NS BID PRN PRN Reason: NASAL CONGESTION Last Admin: 03/21/17 11:28 Dose: 2 spray Solifenacin (Vesicare -) 10 mg PO DAILY [facility] Last Admin: 03/28/17 11:08 Dose: 10 mg Tamsulosin HCl (Flomax -) 0.4 mg PO DAILY [facility] Last Admin: 03/28/17 11:07 Dose: 0.4 mg - Objective Vital Signs: Vital Signs Temperature 98 F 03/28/17 08:53 Pulse Rate 75 03/28/17 10:45 Respiratory Rate 20 03/28/17 08:53 Blood Pressure 168/67 03/28/17 08:53 O2 Sat by Pulse Oximetry (%) 94 L 03/28/17 10:45 Constitutional: Yes: No Distress, Calm Cardiovascular: Yes: S1, S2 Respiratory: Yes: Regular, On Nasal O2, Poor Air Entry, Rhonchi Gastrointestinal: Yes: Normal Bowel Sounds, Soft Musculoskeletal: Yes: Other Extremities: Yes: Other Edema: LLE: Trace, RLE: Trace Neurological: Yes: Alert, Other Psychiatric: Yes: Alert Labs: CBC, BMP 03/28/17 05:35 03/28/17 05:35 INR, PTT INR 1.03 (0.82-1.09) 03/22/17 05:15 Assessment/Plan Problem List - Problems (1) Pneumonia Code(s): J18.9 - PNEUMONIA, UNSPECIFIED ORGANISM Qualifiers: Pneumonia type: due to unspecified organism Laterality: bilateral Lung location: lower lobe of lung Qualified Code(s): J18.9 - Pneumonia, unspecified organism (2) COPD exacerbation Code(s): J44.1 - CHRONIC OBSTRUCTIVE PULMONARY DISEASE W (ACUTE) EXACERBATION (3) YEISON (acute kidney injury) Code(s): N17.9 - ACUTE KIDNEY FAILURE, UNSPECIFIED (4) Acute respiratory failure Code(s): J96.00 - ACUTE RESPIRATORY FAILURE, UNSP W HYPOXIA OR HYPERCAPNIA (5) CHF (congestive heart failure) Code(s): I50.9 - HEART FAILURE, UNSPECIFIED Qualifiers: Congestive heart failure type: unspecified congestive heart failure type Congestive heart failure chronicity: unspecified congestive heart failure chronicity Qualified Code(s): I50.9 - Heart failure, unspecified (6) CVA (cerebral vascular accident) Code(s): I63.9 - CEREBRAL INFARCTION, UNSPECIFIED Qualifiers: CVA mechanism: unspecified Qualified Code(s): I63.9 - Cerebral infarction, unspecified (7) HTN (hypertension) Code(s): I10 - ESSENTIAL (PRIMARY) HYPERTENSION Qualifiers: Hypertension type: essential hypertension Qualified Code(s): I10 - Essential (primary) hypertension (8) Duodenitis Code(s): K29.80 - DUODENITIS WITHOUT BLEEDING 9 mrsa pneumonia plan mrsa pneumonia continue abx vanco trough noted will recheck it tomorrow
--- NOTE | 2017-03-28 16:28 | PN ---
GI Progress Note Subjective: GASTROENTEROLOGY NO DIARRHEA, H&H IMPROVING WELL RESPIRATORY STATUS HE IS EATING , NO REGURGITATION AND NO VOMITING, NO BLEEDING - Objective Vital Signs: Vital Signs Temperature 98.3 F 03/28/17 15:00 Pulse Rate 96 H 03/28/17 15:00 Respiratory Rate 20 03/28/17 15:00 Blood Pressure 131/76 03/28/17 15:00 O2 Sat by Pulse Oximetry (%) 94 L 03/28/17 10:45 Eyes: Yes: Conjunctiva Clear HENT: Yes: Normocephalic Cardiovascular: Yes: Regular Rate and Rhythm Respiratory: Yes: SOB, Other (BUT IMPROVED) ...Auscultate: Yes: Normoactive Bowel Sounds ...Palpate: Yes: Soft Extremities: Yes: WNL Labs: CBC, BMP 03/28/17 05:35 03/28/17 05:35 INR, PTT INR 1.03 (0.82-1.09) 03/22/17 05:15 Laboratory Tests 03/23/17 03/25/17 05:15 12:30 Retic Count 2.64 H Stool Fat, Qual Pending Problem List - Problems (1) GI bleed Assessment/Plan: RESOLVING, DYSPHAGIA PUREED DIET WELL TOLERATED, D/C'ed IV PROTONIX , STARTED PO PROTONIX C DIFF NEG, STOOL FAT STILL PENDING!!!! AND WBC NEG PULMONARY CLEARANCE FOR EGD KANE SMALLS MD ICU TIME :35 MINUTES Code(s): K92.2 - GASTROINTESTINAL HEMORRHAGE, UNSPECIFIED (2) Esophageal dysmotility Code(s): K22.4 - DYSKINESIA OF ESOPHAGUS (3) COPD exacerbation Code(s): J44.1 - CHRONIC OBSTRUCTIVE PULMONARY DISEASE W (ACUTE) EXACERBATION (4) Duodenitis Code(s): K29.80 - DUODENITIS WITHOUT BLEEDING (5) Peripheral arterial disease Code(s): I73.9 - PERIPHERAL VASCULAR DISEASE, UNSPECIFIED (6) Pneumonia Code(s): J18.9 - PNEUMONIA, UNSPECIFIED ORGANISM Qualifiers: Pneumonia type: due to unspecified organism Laterality: bilateral Lung location: lower lobe of lung Qualified Code(s): J18.9 - Pneumonia, unspecified organism (7) Respiratory distress Code(s): R06.00 - DYSPNEA, UNSPECIFIED (8) Thoracic aneurysm without mention of rupture Code(s): I71.2 - THORACIC AORTIC ANEURYSM, WITHOUT RUPTURE Qualifiers: Presence of rupture: without rupture Qualified Code(s): I71.2 - Thoracic aortic aneurysm, without rupture (9) Acute respiratory failure Code(s): J96.00 - ACUTE RESPIRATORY FAILURE, UNSP W HYPOXIA OR HYPERCAPNIA Qualifiers: Respiratory failure complication: hypoxia Qualified Code(s): J96.01 - Acute respiratory failure with hypoxia (10) CHF (congestive heart failure) Code(s): I50.9 - HEART FAILURE, UNSPECIFIED Qualifiers: Congestive heart failure type: unspecified congestive heart failure type Congestive heart failure chronicity: unspecified congestive heart failure chronicity Qualified Code(s): I50.9 - Heart failure, unspecified (11) CVA (cerebral vascular accident) Code(s): I63.9 - CEREBRAL INFARCTION, UNSPECIFIED Qualifiers: CVA mechanism: unspecified Qualified Code(s): I63.9 - Cerebral infarction, unspecified
--- NOTE | 2017-03-28 17:11 | PN ---
Progress Note, ACCOUNT ADMINISTRATOR - Note Progress Note: New dysphagia consultation received 03/27/17. Pt was seen yesterday by ACCOUNT ADMINISTRATOR with recommendations for continued pureed and HONEY thicken liquids. Pt is now getting thicken liquids and is doing well with the diet. Chart review of oral intake. Pt is consuming 100% of meals at this time without s/s of aspiration. ACCOUNT ADMINISTRATOR will continue to monitor as needed.
[2017-03-28] MEDS ORDERED: OXYMETAZOLINE 0.05% NASAL SOLUTION 15 ML BOTTLE NS PRN (18:24)
[2017-03-28] MEDS ORDERED: ALBUTEROL SO4 0.083% IH SOL 2.5 MG/3 ML VIAL.NEB. NEB ONE (18:24)
[2017-03-28] MEDS ORDERED: NITROGLYCERIN SUBLINGUAL 1/150 0.4 MG TAB SL PRN (18:24)
[2017-03-28] MEDS: [UNRECOGNIZED DRUG - OTHER] PO SCH (20:35)
[2017-03-28] MEDS: LIPASE PO SCH (20:35)
[2017-03-28] MEDS: AMYLASE PO SCH (20:35)
[2017-03-28] MEDS: PROTEASE PO SCH (20:35)
[2017-03-28] MEDS: ALBUTEROL SO4 0.083% IH SOL 2.5 MG/3 ML VIAL.NEB. NEB PRN (21:00)
[2017-03-28] MEDS: ATORVASTATIN CA 10 MG TABLET (FP) PO SCH (21:38)
[2017-03-28] MEDS: MONTELUKAST NA 10 MG TABLET PO SCH (21:39)
[2017-03-28] MEDS: MOMETASONE FUROATE 220 MCG/IH INHALER IH SCH (21:40)
[2017-03-28] MEDS: hydrALAZINE HCL 25 MG TABLET (FP) PO SCH (21:40)
[2017-03-28] MEDS ORDERED: CHLORHEXIDINE GLUCONATE 4% CLEANSER FOR DECOLONIZATION TP SCH (22:00)
[2017-03-28 23:03] LABS: ARTERIAL BLD GAS O2 SATURATION 99.5 % (90-98.9); ARTERIAL BLOOD GAS BASE EXCESS 1.6 meq/l (-2-2); ARTERIAL BLOOD GAS HCO3 25.1 meq/L (22-26)
[2017-03-28 23:05] LABS: ALLENS TEST POSITIVE; ART PUNCT SITE RIGHT RADIAL; LPM/O2% 100%; PT. ON O2? YES; TYPE OF O2 NONREBRETHER MASK
[2017-03-28 23:06] LABS: ARTERIAL BLOOD GAS pH 7.45 (7.35-7.45)
[2017-03-28] MEDS: ACETAMINOPHEN 325 MG TABLET (FP) PO PRN (23:11)
[2017-03-29] MEDS: ALBUTEROL SO4 2.5/IPRATROPIUM 0.5 INH SOL 3 ML VIAL.NEB. NEB SCH ×4 (00:15→17:46)
[2017-03-29] MEDS: MAG HYDROX/AL HYDROX/SIMETH 30 ML UNIT-DOSE CUP PO SCH ×3 (06:21→17:26)
[2017-03-29] MEDS: ZINC OXIDE 20% TOPICAL OINTMENT 30 GM TUBE TP SCH ×3 (06:21→21:47)
[2017-03-29] MEDS ORDERED: PT OWN MED DRAWER 7, Y5N ONE ×3 (06:33→21:40)
[2017-03-29 07:28] LABS: MCH 30.4 pg (25.7-33.7); MCHC 33.3 g/dl (32.0-35.9); MEAN CELL VOLUME 91.3 fl (80-96); MEAN PLT VOLUME 7.7 fl (7.5-11.1); PLATELET COUNT 113 K/MM3 (134-434); RDW 17.2 % (11.9-15.9); WHITE BLOOD COUNT 11.5 K/mm3 (4.0-10.0)
[2017-03-29 07:59] LABS: ALBUMIN 2.7 g/dl (3.4-5.0); ALK PHOS 59 U/L (45-117); ANION GAP 9 (8-16); BILIRUBIN,TOTAL 0.6 mg/dL (0.2-1.0); CALCIUM 7.8 mg/dL (8.5-10.1); CO2 28 mmol/L (21-32); CREATININE 0.9 mg/dL (0.7-1.3); GLUCOSE,RANDOM 149 mg/dL (74-106); SGOT/AST 23 U/L (15-37); SGPT/ALT 35 U/L (12-78); TOT PROT 5.2 g/dl (6.4-8.2)
--- NOTE | 2017-03-29 08:22 | PN ---
Progress Note, Physician - Current Medication List Current Medications: Active Medications Acetaminophen (Tylenol -) 650 mg PO Q4H PRN PRN Reason: FEVER OR PAIN Last Admin: 03/28/17 23:11 Dose: 650 mg Al Hydroxide/Mg Hydroxide (Mylanta Oral Suspension -) 30 ml PO Q6HPO [facility] Last Admin: 03/29/17 06:21 Dose: 30 ml Albuterol Sulfate (Ventolin 0.083% Nebulizer Soln -) 1 amp NEB Q4H PRN PRN Reason: SHORT OF BREATH/WHEEZING Last Admin: 03/28/17 21:00 Dose: 1 amp Albuterol/Ipratropium (Duoneb -) 1 amp NEB QIDR [facility] Last Admin: 03/29/17 07:20 Dose: 1 amp Amlodipine Besylate (Norvasc -) 10 mg PO DAILY [facility] Atorvastatin Calcium (Lipitor -) 10 mg PO HS [facility] Last Admin: 03/28/17 21:38 Dose: 10 mg Cholecalciferol (Vitamin D3 -) 1,000 unit PO DAILY [facility] Cholestyramine Resin (Questran Light Packet -) 4 gm PO BID [facility] Last Admin: 03/28/17 21:41 Dose: 4 gm Guaifenesin (Mucinex -) 600 mg PO BID [facility] Last Admin: 03/28/17 21:38 Dose: 600 mg Hydralazine HCl (Apresoline -) 25 mg PO BID [facility] Last Admin: 03/28/17 21:40 Dose: 25 mg Vancomycin HCl 1,250 mg/ (Dextrose) 250 mls @ 166.667 mls/hr IVPB DAILY@1400 [facility] PRN Reason: Protocol Levetiracetam 250 mg/ (Levetiracetam 500 mg) 750 mg PO BID [facility] Last Admin: 03/28/17 21:40 Dose: 750 mg Loratadine (Claritin -) 10 mg PO DAILY [facility] Methylprednisolone Sodium Succinate (Solu-Medrol -) 40 mg IVPB BID [facility] Last Admin: 03/28/17 21:41 Dose: 40 mg Mometasone Furoate (Asmanex 220mcg -) 1 puff IH HS [facility] Last Admin: 03/28/17 21:40 Dose: 1 puff Montelukast Sodium (Singulair -) 10 mg PO [facility] Last Admin: 03/28/17 21:39 Dose: 10 mg Multi-Ingredient Ointment (Zinc Oxide) 1 applic TP TID [facility] Last Admin: 03/29/17 06:21 Dose: 1 applic Nitroglycerin (Nitrostat -) 0.4 mg SL Q5M PRN PRN Reason: CHEST PAIN Non-Formulary Medication (Lipase/Protease/Amylase [Pancrease Ec Capsule]) 4 each PO DAILY [facility] Nystatin (Nystop Powder -) 1 applic TP BID [facility] Last Admin: 03/28/17 21:41 Dose: 1 applic Oxymetazoline HCl (Afrin -) 2 spray NS BID PRN PRN Reason: NASAL CONGESTION Solifenacin (Vesicare -) 10 mg PO DAILY [facility] Tamsulosin HCl (Flomax -) 0.4 mg PO DAILY@0830 [facility] - Objective Vital Signs: Vital Signs Temperature 98.6 F 03/29/17 05:30 Pulse Rate 85 03/29/17 06:47 Respiratory Rate 24 03/29/17 05:30 Blood Pressure 148/62 03/29/17 06:47 O2 Sat by Pulse Oximetry (%) 93 L 03/28/17 23:00 Eyes: Yes: WNL, Conjunctiva Clear, EOM Intact HENT: Yes: WNL, Atraumatic, Normocephalic Neck: Yes: WNL, Supple, Trachea Midline Cardiovascular: Yes: WNL, Regular Rate and Rhythm Respiratory: Yes: WNL, Regular, CTA Bilaterally Gastrointestinal: Yes: WNL, Normal Bowel Sounds Genitourinary: Yes: WNL Musculoskeletal: Yes: WNL Extremities: Yes: WNL Edema: No Integumentary: Yes: WNL Neurological: Yes: WNL, Alert, Oriented ...Motor Strength: WNL Psychiatric: Yes: WNL Labs: CBC, BMP 03/29/17 06:00 03/29/17 06:00 INR, PTT INR 1.03 (0.82-1.09) 03/22/17 05:15 Assessment/Plan Problems (1) Pneumonia Code(s): J18.9 - PNEUMONIA, UNSPECIFIED ORGANISM Qualifiers: Pneumonia type: due to unspecified organism Laterality: bilateral Lung location: lower lobe of lung Qualified Code(s): J18.9 - Pneumonia, unspecified organism (2) COPD exacerbation Code(s): J44.1 - CHRONIC OBSTRUCTIVE PULMONARY DISEASE W (ACUTE) EXACERBATION (3) Respiratory distress Code(s): R06.00 - DYSPNEA, UNSPECIFIED (4) CVA (cerebral vascular accident) Code(s): I63.9 - CEREBRAL INFARCTION, UNSPECIFIED Qualifiers: CVA mechanism: unspecified Qualified Code(s): I63.9 - Cerebral infarction, unspecified (5) HTN (hypertension) Code(s): I10 - ESSENTIAL (PRIMARY) HYPERTENSION Qualifiers: Hypertension type: essential hypertension Qualified Code(s): I10 - Essential (primary) hypertension (6) Thoracic aneurysm without mention of rupture Code(s): I71.2 - THORACIC AORTIC ANEURYSM, WITHOUT RUPTURE Qualifiers: Presence of rupture: without rupture Qualified Code(s): I71.2 - Thoracic aortic aneurysm, without rupture (7) Peripheral arterial disease Code(s): I73.9 - PERIPHERAL VASCULAR DISEASE, UNSPECIFIED Assessment/Plan Assessment/Plan 89 year old man with a history of HTN, HLD, CAD, Chronic diastolic CHF, past CVA /TIA, COPD, Prostate Ca, PAD with recent admission for PNA/sepsis, COPD exacerbation now readmitted with respiratory distress, leukocytosis and CT showing bilateral MRSA PNA. SOB-AE COPD and bilateral MRSA PNA: -receiving supp O2 and Abx Chest/Epigastric pain- -pt reports chronic daily episodes of chest pain 4-5x per day attributed to a hiatal hernia and upon further detailed questioning occur consistently after eating meals. CT scan shows duodenitits. -Normal LV function -cardiac enzymes wnl, ekg not significantly changed from prior ekgs, no arrhythmias on tele -ASA held due to duodenitis/GI bleed. -no bblocker given h/o sig conduction disease and COPD HTN-currently adequately controlled -Continue current meds Carotid stenosis-with reported stents and CEA -ASA 81mg daily if/when tolerated (see above)
[2017-03-29 08:50] LABS: PLATELET ESTIMATE ADEQUATE (NORMAL)
[2017-03-29] MEDS ORDERED: SOLIFENACIN SUCCINATE 5 MG TAB (FP) PO SCH (10:00)
[2017-03-29] MEDS ORDERED: PROTEASE PO SCH (10:00)
[2017-03-29] MEDS ORDERED: [UNRECOGNIZED DRUG - OTHER] PO SCH (10:00)
[2017-03-29] MEDS ORDERED: AMYLASE PO SCH (10:00)
[2017-03-29] MEDS ORDERED: LIPASE PO SCH (10:00)
[2017-03-29] MEDS: methylPREDNISolone NA SUCC 40 MG/1 ML VIAL IVPB SCH ×2 (10:32→21:47)
[2017-03-29] MEDS: amLODIPine BESYLATE 10 MG TABLET (FP) PO SCH (10:33)
[2017-03-29] MEDS: LORATADINE 10 MG TABLET PO SCH (10:33)
[2017-03-29] MEDS: CHOLECALCIFEROL (VITAMIN D3) 1,000 UNIT TABLET (FP) PO SCH (10:33)
[2017-03-29] MEDS: hydrALAZINE HCL 25 MG TABLET (FP) PO SCH ×2 (10:33→21:47)
[2017-03-29] MEDS: TAMSULOSIN HCL 0.4 MG CAP.ER.24H (FP) PO SCH (10:33)
[2017-03-29] MEDS: guaiFENesin 600 MG TABLET.ER (FP) PO SCH ×2 (10:33→21:46)
[2017-03-29] MEDS: CHOLESTYRAMINE/ASPARTAME 4 GM PACKET PO SCH ×2 (10:34→21:45)
[2017-03-29] MEDS: LEVETIRACETAM 250 MG, LEVETIRACETAM 500 MG PO SCH ×2 (10:34→21:46)
[2017-03-29] MEDS: NYSTATIN POWDER 100,000 UNITS/GM - 15 GM TOPICAL POWDER TP SCH ×2 (10:35→21:47)
--- NOTE | 2017-03-29 11:49 | PN ---
Progress Note, Physician History of Present Illness: PULMONARY DROWSY,LESS DYSPNEIC - Current Medication List Current Medications: Active Medications Acetaminophen (Tylenol -) 650 mg PO Q4H PRN PRN Reason: FEVER OR PAIN Last Admin: 03/28/17 23:11 Dose: 650 mg Al Hydroxide/Mg Hydroxide (Mylanta Oral Suspension -) 30 ml PO Q6HPO [facility] Last Admin: 03/29/17 06:21 Dose: 30 ml Albuterol Sulfate (Ventolin 0.083% Nebulizer Soln -) 1 amp NEB Q4H PRN PRN Reason: SHORT OF BREATH/WHEEZING Last Admin: 03/28/17 21:00 Dose: 1 amp Albuterol/Ipratropium (Duoneb -) 1 amp NEB QIDR [facility] Last Admin: 03/29/17 11:07 Dose: 1 amp Amlodipine Besylate (Norvasc -) 10 mg PO DAILY [facility] Last Admin: 03/29/17 10:33 Dose: 10 mg Atorvastatin Calcium (Lipitor -) 10 mg PO HS [facility] Last Admin: 03/28/17 21:38 Dose: 10 mg Cholecalciferol (Vitamin D3 -) 1,000 unit PO DAILY [facility] Last Admin: 03/29/17 10:33 Dose: 1,000 unit Cholestyramine Resin (Questran Light Packet -) 4 gm PO BID [facility] Last Admin: 03/29/17 10:34 Dose: 4 gm Guaifenesin (Mucinex -) 600 mg PO BID [facility] Last Admin: 03/29/17 10:33 Dose: 600 mg Hydralazine HCl (Apresoline -) 25 mg PO BID [facility] Last Admin: 03/29/17 10:33 Dose: 25 mg Vancomycin HCl 1,250 mg/ (Dextrose) 250 mls @ 166.667 mls/hr IVPB DAILY@1400 [facility] PRN Reason: Protocol Levetiracetam 250 mg/ (Levetiracetam 500 mg) 750 mg PO BID [facility] Last Admin: 03/29/17 10:34 Dose: 750 mg Loratadine (Claritin -) 10 mg PO DAILY [facility] Last Admin: 03/29/17 10:33 Dose: 10 mg Methylprednisolone Sodium Succinate (Solu-Medrol -) 40 mg IVPB BID [facility] Last Admin: 03/29/17 10:32 Dose: 40 mg Mometasone Furoate (Asmanex 220mcg -) 1 puff IH HS [facility] Last Admin: 03/28/17 21:40 Dose: 1 puff Montelukast Sodium (Singulair -) 10 mg PO HS [facility] Last Admin: 03/28/17 21:39 Dose: 10 mg Multi-Ingredient Ointment (Zinc Oxide) 1 applic TP TID [facility] Last Admin: 03/29/17 06:21 Dose: 1 applic Nitroglycerin (Nitrostat -) 0.4 mg SL Q5M PRN PRN Reason: CHEST PAIN Non-Formulary Medication (Lipase/Protease/Amylase [Pancrease Ec Capsule]) 4 each PO DAILY [facility] Nystatin (Nystop Powder -) 1 applic TP BID [facility] Last Admin: 03/29/17 10:35 Dose: 1 applic Oxymetazoline HCl (Afrin -) 2 spray NS BID PRN PRN Reason: NASAL CONGESTION Solifenacin (Vesicare -) 10 mg PO DAILY [facility] Last Admin: 03/29/17 10:33 Dose: 10 mg Tamsulosin HCl (Flomax -) 0.4 mg PO DAILY@0830 [facility] Last Admin: 03/29/17 10:33 Dose: 0.4 mg - Objective Vital Signs: Vital Signs Temperature 98.8 F 03/29/17 10:30 Pulse Rate 80 03/29/17 11:08 Respiratory Rate 22 03/29/17 10:30 Blood Pressure 130/60 03/29/17 10:30 O2 Sat by Pulse Oximetry (%) 93 L 03/29/17 11:08 Constitutional: Yes: Well Nourished, Mild Distress, Other (DROWSY) Eyes: Yes: WNL, Occular Prosthesis Neck: Yes: WNL Cardiovascular: Yes: Regular Rate and Rhythm, S1, S2 Respiratory: Yes: Rales (SCATTERED RHONCHI,BIBASILAR RALES), Rhonchi Gastrointestinal: Yes: Normal Bowel Sounds, Soft Extremities: Yes: WNL Edema: Yes Labs: CBC, BMP 03/29/17 06:00 03/29/17 06:00 INR, PTT INR 1.03 (0.82-1.09) 03/22/17 05:15 Problem List - Problems (1) COPD exacerbation Code(s): J44.1 - CHRONIC OBSTRUCTIVE PULMONARY DISEASE W (ACUTE) EXACERBATION (2) Duodenitis Code(s): K29.80 - DUODENITIS WITHOUT BLEEDING (3) GI bleed Code(s): K92.2 - GASTROINTESTINAL HEMORRHAGE, UNSPECIFIED (4) Peripheral arterial disease Code(s): I73.9 - PERIPHERAL VASCULAR DISEASE, UNSPECIFIED (5) Pneumonia Code(s): J18.9 - PNEUMONIA, UNSPECIFIED ORGANISM Qualifiers: Pneumonia type: due to unspecified organism Laterality: bilateral Lung location: lower lobe of lung Qualified Code(s): J18.9 - Pneumonia, unspecified organism (6) Respiratory distress Code(s): R06.00 - DYSPNEA, UNSPECIFIED (7) YEISON (acute kidney injury) Code(s): N17.9 - ACUTE KIDNEY FAILURE, UNSPECIFIED (8) CAD (coronary artery disease) Code(s): I25.10 - ATHSCL HEART DISEASE OF [place] CORONARY ARTERY W/O ANG PCTRS Qualifiers: Coronary Disease-Associated Artery/Lesion type: [place] artery [place] vs. transplanted heart: [place] heart Associated angina: angina presence unspecified Qualified Code(s): I25.10 - Atherosclerotic heart disease of [place] coronary artery without angina pectoris (9) CHF (congestive heart failure) Code(s): I50.9 - HEART FAILURE, UNSPECIFIED Qualifiers: Congestive heart failure type: unspecified congestive heart failure type Congestive heart failure chronicity: unspecified congestive heart failure chronicity Qualified Code(s): I50.9 - Heart failure, unspecified (10) CVA (cerebral vascular accident) Code(s): I63.9 - CEREBRAL INFARCTION, UNSPECIFIED Qualifiers: CVA mechanism: unspecified Qualified Code(s): I63.9 - Cerebral infarction, unspecified (11) Acute and chronic respiratory failure with hypoxia Code(s): J96.21 - ACUTE AND CHRONIC RESPIRATORY FAILURE WITH HYPOXIA (12) Thoracic aneurysm without mention of rupture Code(s): I71.2 - THORACIC AORTIC ANEURYSM, WITHOUT RUPTURE Qualifiers: Presence of rupture: without rupture Qualified Code(s): I71.2 - Thoracic aortic aneurysm, without rupture (13) Acute respiratory failure Code(s): J96.00 - ACUTE RESPIRATORY FAILURE, UNSP W HYPOXIA OR HYPERCAPNIA Qualifiers: Respiratory failure complication: hypoxia Qualified Code(s): J96.01 - Acute respiratory failure with hypoxia Assessment/Plan ASSESSMENT AND PLAN: Acute on Chronic Hypoxic Respiratory Failure Pneumonia COPD Exacerbation CAD LV Diastolic Dysfunction GI Bleed Anemia Lymphoma - antibiotics per ID - medrol same dose - inhaled bronchodilators - O2 to keep SpO2 >90% - aspiration precautions - BiPAP PRN - DVT prophylaxis DR CHILD
--- NOTE | 2017-03-29 12:23 | PN ---
Progress Note, Physician History of Present Illness: patient looking much better in room weakness persists patient worked very little with physio in the room - Current Medication List Current Medications: Active Medications Acetaminophen (Tylenol -) 650 mg PO Q4H PRN PRN Reason: FEVER OR PAIN Last Admin: 03/28/17 23:11 Dose: 650 mg Al Hydroxide/Mg Hydroxide (Mylanta Oral Suspension -) 30 ml PO Q6HPO [facility] Last Admin: 03/29/17 11:47 Dose: 30 ml Albuterol Sulfate (Ventolin 0.083% Nebulizer Soln -) 1 amp NEB Q4H PRN PRN Reason: SHORT OF BREATH/WHEEZING Last Admin: 03/28/17 21:00 Dose: 1 amp Albuterol/Ipratropium (Duoneb -) 1 amp NEB QIDR [facility] Last Admin: 03/29/17 11:07 Dose: 1 amp Amlodipine Besylate (Norvasc -) 10 mg PO DAILY [facility] Last Admin: 03/29/17 10:33 Dose: 10 mg Atorvastatin Calcium (Lipitor -) 10 mg PO HS [facility] Last Admin: 03/28/17 21:38 Dose: 10 mg Cholecalciferol (Vitamin D3 -) 1,000 unit PO DAILY [facility] Last Admin: 03/29/17 10:33 Dose: 1,000 unit Cholestyramine Resin (Questran Light Packet -) 4 gm PO BID [facility] Last Admin: 03/29/17 10:34 Dose: 4 gm Guaifenesin (Mucinex -) 600 mg PO BID [facility] Last Admin: 03/29/17 10:33 Dose: 600 mg Hydralazine HCl (Apresoline -) 25 mg PO BID [facility] Last Admin: 03/29/17 10:33 Dose: 25 mg Vancomycin HCl 1,250 mg/ (Dextrose) 250 mls @ 166.667 mls/hr IVPB DAILY@1400 [facility] PRN Reason: Protocol Levetiracetam 250 mg/ (Levetiracetam 500 mg) 750 mg PO BID [facility] Last Admin: 03/29/17 10:34 Dose: 750 mg Loratadine (Claritin -) 10 mg PO DAILY [facility] Last Admin: 03/29/17 10:33 Dose: 10 mg Methylprednisolone Sodium Succinate (Solu-Medrol -) 40 mg IVPB BID [facility] Last Admin: 07/15/17 10:32 Dose: 40 mg Mometasone Furoate (Asmanex 220mcg -) 1 puff IH HS [facility] Last Admin: 03/28/17 21:40 Dose: 1 puff Montelukast Sodium (Singulair -) 10 mg PO HS [facility] Last Admin: 03/28/17 21:39 Dose: 10 mg Multi-Ingredient Ointment (Zinc Oxide) 1 applic TP TID [facility] Last Admin: 03/29/17 06:21 Dose: 1 applic Nitroglycerin (Nitrostat -) 0.4 mg SL Q5M PRN PRN Reason: CHEST PAIN Non-Formulary Medication (Lipase/Protease/Amylase [Pancrease Ec Capsule]) 4 each PO DAILY [facility] Nystatin (Nystop Powder -) 1 applic TP BID [facility] Last Admin: 03/29/17 10:35 Dose: 1 applic Oxymetazoline HCl (Afrin -) 2 spray NS BID PRN PRN Reason: NASAL CONGESTION Solifenacin (Vesicare -) 10 mg PO DAILY [facility] Last Admin: 03/29/17 10:33 Dose: 10 mg Tamsulosin HCl (Flomax -) 0.4 mg PO DAILY@0830 [facility] Last Admin: 03/29/17 10:33 Dose: 0.4 mg - Objective Vital Signs: Vital Signs Temperature 98.8 F 03/29/17 10:30 Pulse Rate 80 03/29/17 11:08 Respiratory Rate 22 03/29/17 10:30 Blood Pressure 130/60 03/29/17 10:30 O2 Sat by Pulse Oximetry (%) 93 L 03/29/17 11:08 Constitutional: Yes: No Distress, Calm Cardiovascular: Yes: S1, S2 Respiratory: Yes: Regular, On Nasal O2, Poor Air Entry, Rhonchi, Other Gastrointestinal: Yes: Normal Bowel Sounds, Soft Musculoskeletal: Yes: WNL Extremities: Yes: Other Edema: LLE: Trace, RLE: Trace Neurological: Yes: Alert, Oriented Psychiatric: Yes: Alert, Oriented Labs: CBC, BMP 03/29/17 06:00 03/29/17 06:00 INR, PTT INR 1.03 (0.82-1.09) 03/22/17 05:15 - ....Imaging Chest X-ray: Report Reviewed, Image Reviewed Assessment/Plan Problem List - Problems (1) Pneumonia Code(s): J18.9 - PNEUMONIA, UNSPECIFIED ORGANISM Qualifiers: Pneumonia type: due to unspecified organism Laterality: bilateral Lung location: lower lobe of lung Qualified Code(s): J18.9 - Pneumonia, unspecified organism (2) COPD exacerbation Code(s): J44.1 - CHRONIC OBSTRUCTIVE PULMONARY DISEASE W (ACUTE) EXACERBATION (3) YEISON (acute kidney injury) Code(s): N17.9 - ACUTE KIDNEY FAILURE, UNSPECIFIED (4) Acute respiratory failure Code(s): J96.00 - ACUTE RESPIRATORY FAILURE, UNSP W HYPOXIA OR HYPERCAPNIA (5) CHF (congestive heart failure) Code(s): I50.9 - HEART FAILURE, UNSPECIFIED Qualifiers: Congestive heart failure type: unspecified congestive heart failure type Congestive heart failure chronicity: unspecified congestive heart failure chronicity Qualified Code(s): I50.9 - Heart failure, unspecified (6) CVA (cerebral vascular accident) Code(s): I63.9 - CEREBRAL INFARCTION, UNSPECIFIED Qualifiers: CVA mechanism: unspecified Qualified Code(s): I63.9 - Cerebral infarction, unspecified (7) HTN (hypertension) Code(s): I10 - ESSENTIAL (PRIMARY) HYPERTENSION Qualifiers: Hypertension type: essential hypertension Qualified Code(s): I10 - Essential (primary) hypertension (8) Duodenitis Code(s): K29.80 - DUODENITIS WITHOUT BLEEDING 9 mrsa pneumonia plan mrsa pneumonia continue abx recheck vanco trough rest as per primary
[2017-03-29] MEDS ORDERED: VANCOMYCIN 1,250 MG in DEXTROSE 5%-WATER - 250 ML IVPB SCH (14:00)
--- NOTE | 2017-03-29 15:50 | PN ---
Progress Note (short form) - Note Progress Note: Short of breath but better than before. Denies chest pain, palpitation or dizziness. Afebrile. History Source: Patient, Medical Record Limitations to Obtaining History: Clinical Condition - Past Medical History [employer] WORK[employer]: Yes: CVA, Dementia, TIA Cardiovascular: Yes: CAD, HTN Pulmonary: Yes: COPD Gastrointestinal: Yes: Other (HX OF PROGRESSIVE REGURGITATION FOR YEARS, PLACED ON OMEPRAZOLE BY PMD NO WORK UP EVER DONE DESPITE SYMPTOMS) Renal/: Yes: Cancer (prostate) - Past Surgical History Past Surgical History: Yes: Carotid Endarterectomy (carotid "stent" about 2 years go), Stent (carotid; denies cardiac stent) - Advance Directives Advance Directives: Yes: Living Will, Health Care Proxy, DNR - Smoking History Smoking history: Former smoker Have you smoked in the past 12 months: No Aproximately how many cigarettes per day: 0 If you are a former smoker, when did you quit?: over 20 years go - Alcohol/Substance Use Hx Alcohol Use: No - Social History ADL: Family Assistance History of Recent Travel: No Home Medications - Allergies Allergies/Adverse Reactions: Allergies Allergy/AdvReac Type Severity Reaction Status Date / Time Anesthetics - Angle Type- Allergy Unknown Verified 03/20/17 17:27 Parabens [Anesthetics - Angle Type] latex Allergy Verified 03/20/17 17:27 - Home Medications Home Medications: Ambulatory Orders Albuterol 0.083% Nebulizer Lela [Ventolin 0.083% Nebulizer Soln -] 1 neb NEB BID 09/30/14 Aspirin/Dipyridamole [Aggrenox -] 1 combo PO BID 09/30/14 Cholecalciferol (Vitamin D3) [Vitamin D3] 1,000 unit PO DAILY 09/30/14 Cholestyramine/Sucrose [Cholestyramine Packet] 4 gm PO BID PRN 09/30/14 Fluticasone Propionate [Flovent Hfa] 110 mg IH BID 09/30/14 Levetiracetam [Keppra -] 750 mg PO BID 09/30/14 Lipase/Protease/Amylase [Pancrease EC Capsule] 4 each PO DAILY 09/30/14 Loratadine 10 mg PO DAILY 09/30/14 Montelukast Na [Singulair -] 10 mg PO HS 09/30/14 Simvastatin [Zocor] 20 mg PO HS 09/30/14 Solifenacin Succinate [Vesicare] 10 mg PO DAILY 09/30/14 Tamsulosin HCl [Flomax -] 0.4 mg PO DAILY 09/30/14 Tiotropium [place] [Spiriva] 1 inh PO DAILY 09/30/14 Lipase/Protease/Amylase [Pancrelipase 5,000 Dr Capsule -] 2 each PO BIDWM #60 cap 10/06/14 Oxymetazoline 0.05% Nasal Soln [Afrin -] 2 spray NS BID PRN #7 spraybtl Ranitidine [Zantac -] 150 mg PO BID #30 tablet 10/06/14 Tramadol HCl 50 mg PO Q6H #20 tablet MDD 200mg 01/08/17 Amlodipine Besylate [Norvasc -] 10 mg PO DAILY #30 tablet 03/19/17 Azithromycin 500 mg PO DAILY #5 tablet 03/19/17 Cefuroxime Axetil [Ceftin -] 500 mg PO BID #14 tablet 03/19/17 Hydralazine HCl 10 mg PO BID #60 tablet 03/19/17 Prednisone [Deltasone -] See Taper PO DAILY #30 tablet 03/19/17 Menthol/Zinc Oxide [Calmoseptine Ointment] 71 gm TP QID 03/20/17 Nystatin Powder [Nystop Topical Powder -] 15 gm TP BID 03/20/17 Review of Systems - Review of Systems Constitutional: reports: Lethargy, Weakness Eyes: reports: No Symptoms HENT: reports: No Symptoms Neck: reports: Stiffness Cardiovascular: reports: Shortness of Breath Respiratory: reports: Cough, SOB, Wheezing Gastrointestinal: reports: Nausea Genitourinary: reports: No Symptoms Musculoskeletal: reports: Back Pain Neurological: reports: No Symptoms Physical Examination Vital Signs: Vital Signs Period Temp Pulse Resp BP Sys/Bush Pulse Ox Last 24 Hr 97.9 F-99.2 F 77-98 20-24 129-190/58-85 93-100 Constitutional: Yes: Moderate Distress, Obese Eyes: Yes: Conjunctiva Clear, EOM Intact HENT: Yes: Atraumatic, Normocephalic Neck: Yes: Supple, Trachea Midline Cardiovascular: Yes: Regular Rate and Rhythm Respiratory: Yes: Diminished (air entry decreased b/l lung base) Gastrointestinal: Yes: Normal Bowel Sounds, Soft ...Rectal Exam: Yes: Deferred Musculoskeletal: Yes: Back Pain Neurological: Yes: Alert, Oriented ...Motor Strength: WNL Psychiatric: Yes: Alert Imaging - Results Chest X-ray: Report Reviewed Cat Scan: Report Reviewed Current Medications Acetaminophen (Tylenol -) 650 mg PO Q4H PRN PRN Reason: FEVER OR PAIN Last Admin: 03/25/17 07:30 Dose: 650 mg Al Hydroxide/Mg Hydroxide (Mylanta Oral Suspension -) 30 ml PO Q6HPO [facility] Last Admin: 03/27/17 07:39 Dose: Not Given Albuterol Sulfate (Ventolin 0.083% Nebulizer Soln -) 1 amp NEB Q4H PRN PRN Reason: SHORT OF BREATH/WHEEZING Albuterol/Ipratropium (Duoneb -) 1 amp NEB QIDR [facility] Last Admin: 03/27/17 06:18 Dose: 1 amp Amlodipine Besylate (Norvasc -) 10 mg PO DAILY [facility] Last Admin: 03/27/17 10:31 Dose: 10 mg Atorvastatin Calcium (Lipitor -) 10 mg PO HS [facility] Last Admin: 03/27/17 00:10 Dose: 10 mg Chlorhexidine Gluconate (Hibiclens For Decolonization -) 1 applic TP [facility] Last Admin: 03/27/17 00:11 Dose: Not Given Cholecalciferol (Vitamin D3 -) 1,000 unit PO DAILY [facility] Last Admin: 03/27/17 10:30 Dose: 1,000 unit Cholestyramine Resin (Questran Light Packet -) 4 gm PO BID [facility] Last Admin: 03/27/17 10:32 Dose: 4 gm Guaifenesin (Mucinex -) 600 mg PO BID [facility] Last Admin: 03/27/17 10:31 Dose: 600 mg Hydralazine HCl (Apresoline -) 10 mg PO BID [facility] Last Admin: 03/27/17 10:31 Dose: 10 mg Pantoprazole Sodium (Protonix 40mg Ivpb (Pre-Docked)) 100 mls @ 200 mls/hr IVPB BID [facility] Last Admin: 03/27/17 10:32 Dose: 200 mls/hr Vancomycin HCl 1,250 mg/ (Dextrose) 250 mls @ 166.667 mls/hr IVPB DAILY@1400 [facility] PRN Reason: Protocol Last Admin: 03/26/17 15:00 Dose: 166.667 mls/hr Levetiracetam 250 mg/ (Levetiracetam 500 mg) 750 mg PO BID [facility] Last Admin: 03/27/17 10:30 Dose: 750 mg Loratadine (Claritin -) 10 mg PO DAILY [facility] Last Admin: 03/27/17 10:31 Dose: 10 mg Methylprednisolone Sodium Succinate (Solu-Medrol -) 40 mg IVPB BID [facility] Last Admin: 03/27/17 10:32 Dose: 40 mg Mometasone Furoate (Asmanex 220mcg -) 1 puff IH [facility] Last Admin: 03/27/17 00:11 Dose: 1 puff Montelukast Sodium (Singulair -) 10 mg PO [facility] Last Admin: 03/27/17 00:10 Dose: 10 mg Multi-Ingredient Ointment (Zinc Oxide) 1 applic TP TID [facility] Last Admin: 03/27/17 00:11 Dose: 1 applic Nitroglycerin (Nitrostat -) 0.4 mg SL [id number] PRN PRN Reason: CHEST PAIN Non-Formulary Medication (Lipase/Protease/Amylase [Pancrease Ec Capsule]) 4 each PO DAILY [facility] Nystatin (Nystop Powder -) 1 applic TP BID [facility] Last Admin: 03/27/17 10:33 Dose: 1 applic Oxymetazoline HCl (Afrin -) 2 spray NS BID PRN PRN Reason: NASAL CONGESTION Last Admin: 03/21/17 11:28 Dose: 2 spray Solifenacin (Vesicare -) 10 mg PO DAILY [facility] Last Admin: 03/27/17 10:31 Dose: 10 mg Tamsulosin HCl (Flomax -) 0.4 mg PO DAILY [facility] Last Admin: 03/27/17 10:31 Dose: 0.4 mg Problem List - Problems (1) Pneumonia Assessment/Plan: Imroving. MSSA Pneumonia Continue IV abx. Pulmonary and ID follow up appreciated. Code(s): J18.9 - PNEUMONIA, UNSPECIFIED ORGANISM Qualifiers: Pneumonia type: due to unspecified organism Laterality: bilateral Lung location: lower lobe of lung Qualified Code(s): J18.9 - Pneumonia, unspecified organism (2) COPD exacerbation Assessment/Plan: Improving. Continue O2 NC/Inhaled bronchodilators/Solumedrol. Management per pulmonary. Code(s): J44.1 - CHRONIC OBSTRUCTIVE PULMONARY DISEASE W (ACUTE) EXACERBATION (3) YEISON (acute kidney injury) Assessment/Plan: Improving. Renal follow up appreciated. Code(s): N17.9 - ACUTE KIDNEY FAILURE, UNSPECIFIED (4) Acute respiratory failure Code(s): J96.00 - ACUTE RESPIRATORY FAILURE, UNSP W HYPOXIA OR HYPERCAPNIA Improving. Continue current management. BiPaP as needed. (5) CHF (congestive heart failure) Assessment/Plan: Stable. Chest x ray improved. Cardiology follow up appreciated. Will continue current management. Code(s): I50.9 - HEART FAILURE, UNSPECIFIED Qualifiers: Congestive heart failure type: unspecified congestive heart failure type Congestive heart failure chronicity: unspecified congestive heart failure chronicity Qualified Code(s): I50.9 - Heart failure, unspecified (6) CVA (cerebral vascular accident) Assessment/Plan: stable. Aggrenox on hold because of GI bleed Code(s): I63.9 - CEREBRAL INFARCTION, UNSPECIFIED Qualifiers: CVA mechanism: unspecified Qualified Code(s): I63.9 - Cerebral infarction, unspecified (7) HTN (hypertension) Code(s): I10 - ESSENTIAL (PRIMARY) HYPERTENSION Qualifiers: Hypertension type: essential hypertension Qualified Code(s): I10 - Essential (primary) hypertension Reasonable control. Continue current meds. (8) Duodenitis Assessment/Plan: CT Scan shows duodenitis. Patient with nausea, abdominal discomfort. GI follow up appreciated. Code(s): K29.80 - DUODENITIS WITHOUT BLEEDING 9) GI Bleed: S/P Transfusion. H/H improving. GI follow up appreciated. Problem List - Problems (1) Pneumonia Code(s): J18.9 - PNEUMONIA, UNSPECIFIED ORGANISM Qualifiers: Pneumonia type: due to unspecified organism Laterality: bilateral Lung location: lower lobe of lung Qualified Code(s): J18.9 - Pneumonia, unspecified organism (2) COPD exacerbation Code(s): J44.1 - CHRONIC OBSTRUCTIVE PULMONARY DISEASE W (ACUTE) EXACERBATION (3) YEISON (acute kidney injury) Code(s): N17.9 - ACUTE KIDNEY FAILURE, UNSPECIFIED (4) Acute respiratory failure Code(s): J96.00 - ACUTE RESPIRATORY FAILURE, UNSP W HYPOXIA OR HYPERCAPNIA Qualifiers: Respiratory failure complication: hypoxia Qualified Code(s): J96.01 - Acute respiratory failure with hypoxia (5) CHF (congestive heart failure) Code(s): I50.9 - HEART FAILURE, UNSPECIFIED Qualifiers: Congestive heart failure type: unspecified congestive heart failure type Congestive heart failure chronicity: unspecified congestive heart failure chronicity Qualified Code(s): I50.9 - Heart failure, unspecified (6) CVA (cerebral vascular accident) Code(s): I63.9 - CEREBRAL INFARCTION, UNSPECIFIED Qualifiers: CVA mechanism: unspecified Qualified Code(s): I63.9 - Cerebral infarction, unspecified (7) HTN (hypertension) Code(s): I10 - ESSENTIAL (PRIMARY) HYPERTENSION Qualifiers: Hypertension type: essential hypertension Qualified Code(s): I10 - Essential (primary) hypertension (8) Duodenitis Code(s): K29.80 - DUODENITIS WITHOUT BLEEDING
[2017-03-29] MEDS: VANCOMYCIN 1,500 MG in DEXTROSE 5%-WATER - 500 ML IVPB SCH (16:51)
[2017-03-29] MEDS: MOMETASONE FUROATE 220 MCG/IH INHALER IH SCH (21:46)
[2017-03-29] MEDS: MONTELUKAST NA 10 MG TABLET PO SCH (21:46)
[2017-03-29] MEDS: ATORVASTATIN CA 10 MG TABLET (FP) PO SCH (21:47)
[2017-03-30] MEDS: ALBUTEROL SO4 2.5/IPRATROPIUM 0.5 INH SOL 3 ML VIAL.NEB. NEB SCH ×5 (00:05→22:59)
[2017-03-30] MEDS: MAG HYDROX/AL HYDROX/SIMETH 30 ML UNIT-DOSE CUP PO SCH ×6 (01:55→17:28)
[2017-03-30] MEDS ORDERED: PT OWN MED DRAWER 7, Y5N ONE ×3 (03:50→21:04)
[2017-03-30] MEDS: ZINC OXIDE 20% TOPICAL OINTMENT 30 GM TUBE TP SCH ×3 (05:45→21:11)
[2017-03-30] MEDS: LEVETIRACETAM 250 MG, LEVETIRACETAM 500 MG PO SCH ×2 (09:15→21:10)
[2017-03-30] MEDS: amLODIPine BESYLATE 10 MG TABLET (FP) PO SCH (09:15)
[2017-03-30] MEDS: TAMSULOSIN HCL 0.4 MG CAP.ER.24H (FP) PO SCH (09:15)
[2017-03-30] MEDS: guaiFENesin 600 MG TABLET.ER (FP) PO SCH ×2 (09:15→21:11)
[2017-03-30] MEDS: CHOLECALCIFEROL (VITAMIN D3) 1,000 UNIT TABLET (FP) PO SCH (09:15)
[2017-03-30] MEDS: hydrALAZINE HCL 25 MG TABLET (FP) PO SCH ×2 (09:15→21:11)
[2017-03-30] MEDS: methylPREDNISolone NA SUCC 40 MG/1 ML VIAL IVPB SCH ×2 (09:16→21:11)
[2017-03-30] MEDS: LORATADINE 10 MG TABLET PO SCH (09:16)
[2017-03-30] MEDS: CHOLESTYRAMINE/ASPARTAME 4 GM PACKET PO SCH ×2 (09:16→21:11)
[2017-03-30] MEDS: NYSTATIN POWDER 100,000 UNITS/GM - 15 GM TOPICAL POWDER TP SCH ×2 (09:16→21:12)
[2017-03-30] MEDS: LIPASE PO SCH (09:55)
[2017-03-30] MEDS: PROTEASE PO SCH (09:55)
[2017-03-30] MEDS: [UNRECOGNIZED DRUG - OTHER] PO SCH (09:55)
[2017-03-30] MEDS: AMYLASE PO SCH (09:55)
--- NOTE | 2017-03-30 11:37 | PN ---
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 Pt is consuming meals with assistance. intern brandMALLIKA Fung reports good acceptance with occasional s/s of aspiration-like behaviors (coughing) at times possibly related to PNA. Recommendations: Continue dysphagia pureed with honey thicken liquids via spoon. Crush medications in purees. Observe standard aspiration precautions. Consider nutritional supplements magic cup ensure pudding. Results given verbally to dry pan chargerMALLIKA Fung and to pcp via chart.
--- NOTE | 2017-03-30 11:40 | PN ---
Progress Note, Physician History of Present Illness: PULMONARY DROWSY,LESS CONGESTED,COMFORTABLE - Current Medication List Current Medications: Active Medications Acetaminophen (Tylenol -) 650 mg PO Q4H PRN PRN Reason: FEVER OR PAIN Last Admin: 03/28/17 23:11 Dose: 650 mg Al Hydroxide/Mg Hydroxide (Mylanta Oral Suspension -) 30 ml PO Q6HPO [facility] Last Admin: 03/30/17 05:45 Dose: 30 ml Albuterol Sulfate (Ventolin 0.083% Nebulizer Soln -) 1 amp NEB Q4H PRN PRN Reason: SHORT OF BREATH/WHEEZING Last Admin: 03/28/17 21:00 Dose: 1 amp Albuterol/Ipratropium (Duoneb -) 1 amp NEB QIDR [facility] Last Admin: 03/30/17 11:02 Dose: 1 amp Amlodipine Besylate (Norvasc -) 10 mg PO DAILY [facility] Last Admin: 03/30/17 09:15 Dose: 10 mg Atorvastatin Calcium (Lipitor -) 10 mg PO HS [facility] Last Admin: 03/29/17 21:47 Dose: 10 mg Cholecalciferol (Vitamin D3 -) 1,000 unit PO DAILY [facility] Last Admin: 03/30/17 09:15 Dose: 1,000 unit Cholestyramine Resin (Questran Light Packet -) 4 gm PO BID [facility] Last Admin: 03/30/17 09:16 Dose: 4 gm Guaifenesin (Mucinex -) 600 mg PO BID [facility] Last Admin: 03/30/17 09:15 Dose: 600 mg Hydralazine HCl (Apresoline -) 25 mg PO BID [facility] Last Admin: 03/30/17 09:15 Dose: 25 mg Vancomycin HCl 1,500 mg/ (Dextrose) 500 mls @ 166.667 mls/hr IVPB DAILY@1400 [facility] PRN Reason: Protocol Last Admin: 03/29/17 16:51 Dose: 166.667 mls/hr Levetiracetam 250 mg/ (Levetiracetam 500 mg) 750 mg PO BID [facility] Last Admin: 03/30/17 09:15 Dose: 750 mg Loratadine (Claritin -) 10 mg PO DAILY [facility] Last Admin: 03/30/17 09:16 Dose: 10 mg Methylprednisolone Sodium Succinate (Solu-Medrol -) 40 mg IVPB BID [facility] Last Admin: 03/30/17 09:16 Dose: 40 mg Mometasone Furoate (Asmanex 220mcg -) 1 puff IH [facility] Last Admin: 03/29/17 21:46 Dose: 1 puff Montelukast Sodium (Singulair -) 10 mg PO HS [facility] Last Admin: 03/29/17 21:46 Dose: 10 mg Multi-Ingredient Ointment (Zinc Oxide) 1 applic TP TID [facility] Last Admin: 03/30/17 05:45 Dose: 1 applic Nitroglycerin (Nitrostat -) 0.4 mg SL Q5M PRN PRN Reason: CHEST PAIN Nystatin (Nystop Powder -) 1 applic TP BID [facility] Last Admin: 03/30/17 09:16 Dose: 1 applic Oxymetazoline HCl (Afrin -) 2 spray NS BID PRN PRN Reason: NASAL CONGESTION Tamsulosin HCl (Flomax -) 0.4 mg PO DAILY@0830 [facility] Last Admin: 03/30/17 09:15 Dose: 0.4 mg - Objective Vital Signs: Vital Signs Temperature 98.4 F 03/30/17 09:10 Pulse Rate 69 03/30/17 10:47 Respiratory Rate 21 03/30/17 09:10 Blood Pressure 154/62 03/30/17 09:10 O2 Sat by Pulse Oximetry (%) 95 03/30/17 10:47 Constitutional: Yes: Well Nourished, Other (DROWSY) Eyes: Yes: WNL HENT: Yes: WNL Neck: Yes: WNL Cardiovascular: Yes: Regular Rate and Rhythm, S1, S2 Respiratory: Yes: Rhonchi (SCATTERED JUDITH RHONCHI,BIBASILAR RALES) Gastrointestinal: Yes: Normal Bowel Sounds, Soft Extremities: Yes: WNL Edema: Yes Labs: CBC, BMP Problem List - Problems (1) COPD exacerbation Code(s): J44.1 - CHRONIC OBSTRUCTIVE PULMONARY DISEASE W (ACUTE) EXACERBATION (2) Duodenitis Code(s): K29.80 - DUODENITIS WITHOUT BLEEDING (3) GI bleed Code(s): K92.2 - GASTROINTESTINAL HEMORRHAGE, UNSPECIFIED (4) Peripheral arterial disease Code(s): I73.9 - PERIPHERAL VASCULAR DISEASE, UNSPECIFIED (5) Pneumonia Code(s): J18.9 - PNEUMONIA, UNSPECIFIED ORGANISM Qualifiers: Pneumonia type: due to unspecified organism Laterality: bilateral Lung location: lower lobe of lung Qualified Code(s): J18.9 - Pneumonia, unspecified organism (6) Respiratory distress Code(s): R06.00 - DYSPNEA, UNSPECIFIED (7) YEISON (acute kidney injury) Code(s): N17.9 - ACUTE KIDNEY FAILURE, UNSPECIFIED (8) CAD (coronary artery disease) Code(s): I25.10 - ATHSCL HEART DISEASE OF [place] CORONARY ARTERY W/O ANG PCTRS Qualifiers: Coronary Disease-Associated Artery/Lesion type: [place] artery [place] vs. transplanted heart: [place] heart Associated angina: angina presence unspecified Qualified Code(s): I25.10 - Atherosclerotic heart disease of [place] coronary artery without angina pectoris (9) CHF (congestive heart failure) Code(s): I50.9 - HEART FAILURE, UNSPECIFIED Qualifiers: Congestive heart failure type: unspecified congestive heart failure type Congestive heart failure chronicity: unspecified congestive heart failure chronicity Qualified Code(s): I50.9 - Heart failure, unspecified (10) CVA (cerebral vascular accident) Code(s): I63.9 - CEREBRAL INFARCTION, UNSPECIFIED Qualifiers: CVA mechanism: unspecified Qualified Code(s): I63.9 - Cerebral infarction, unspecified (11) Acute and chronic respiratory failure with hypoxia Code(s): J96.21 - ACUTE AND CHRONIC RESPIRATORY FAILURE WITH HYPOXIA (12) Thoracic aneurysm without mention of rupture Code(s): I71.2 - THORACIC AORTIC ANEURYSM, WITHOUT RUPTURE Qualifiers: Presence of rupture: without rupture Qualified Code(s): I71.2 - Thoracic aortic aneurysm, without rupture (13) Acute respiratory failure Code(s): J96.00 - ACUTE RESPIRATORY FAILURE, UNSP W HYPOXIA OR HYPERCAPNIA Qualifiers: Respiratory failure complication: hypoxia Qualified Code(s): J96.01 - Acute respiratory failure with hypoxia Assessment/Plan ASSESSMENT AND PLAN: Acute on Chronic Hypoxic Respiratory Failure Pneumonia COPD Exacerbation CAD LV Diastolic Dysfunction GI Bleed Anemia Lymphoma - antibiotics per ID - medrol taper - inhaled bronchodilators - O2 to keep SpO2 >90% - aspiration precautions - BiPAP PRN - DVT prophylaxis DR CHILD
--- NOTE | 2017-03-30 12:18 | PN ---
Progress Note, Physician - Current Medication List Current Medications: Active Medications Acetaminophen (Tylenol -) 650 mg PO Q4H PRN PRN Reason: FEVER OR PAIN Last Admin: 03/28/17 23:11 Dose: 650 mg Al Hydroxide/Mg Hydroxide (Mylanta Oral Suspension -) 30 ml PO Q6HPO [facility] Last Admin: 03/30/17 11:54 Dose: 30 ml Albuterol Sulfate (Ventolin 0.083% Nebulizer Soln -) 1 amp NEB Q4H PRN PRN Reason: SHORT OF BREATH/WHEEZING Last Admin: 03/28/17 21:00 Dose: 1 amp Albuterol/Ipratropium (Duoneb -) 1 amp NEB QIDR [facility] Last Admin: 03/30/17 11:02 Dose: 1 amp Amlodipine Besylate (Norvasc -) 10 mg PO DAILY [facility] Last Admin: 03/30/17 09:15 Dose: 10 mg Atorvastatin Calcium (Lipitor -) 10 mg PO HS [facility] Last Admin: 03/29/17 21:47 Dose: 10 mg Cholecalciferol (Vitamin D3 -) 1,000 unit PO DAILY [facility] Last Admin: 03/30/17 09:15 Dose: 1,000 unit Cholestyramine Resin (Questran Light Packet -) 4 gm PO BID [facility] Last Admin: 03/30/17 09:16 Dose: 4 gm Guaifenesin (Mucinex -) 600 mg PO BID [facility] Last Admin: 03/30/17 09:15 Dose: 600 mg Hydralazine HCl (Apresoline -) 25 mg PO BID [facility] Last Admin: 03/30/17 09:15 Dose: 25 mg Vancomycin HCl 1,500 mg/ (Dextrose) 500 mls @ 166.667 mls/hr IVPB DAILY@1400 CAREY PRN Reason: Protocol Last Admin: 03/29/17 16:51 Dose: 166.667 mls/hr Levetiracetam 250 mg/ (Levetiracetam 500 mg) 750 mg PO BID [facility] Last Admin: 03/30/17 09:15 Dose: 750 mg Loratadine (Claritin -) 10 mg PO DAILY [facility] Last Admin: 03/30/17 09:16 Dose: 10 mg Methylprednisolone Sodium Succinate (Solu-Medrol -) 40 mg IVPB BID [facility] Last Admin: 03/30/17 09:16 Dose: 40 mg Mometasone Furoate (Asmanex 220mcg -) 1 puff IH [facility] Last Admin: 03/29/17 21:46 Dose: 1 puff Montelukast Sodium (Singulair -) 10 mg PO [facility] Last Admin: 03/29/17 21:46 Dose: 10 mg Multi-Ingredient Ointment (Zinc Oxide) 1 applic TP TID [facility] Last Admin: 03/30/17 05:45 Dose: 1 applic Nitroglycerin (Nitrostat -) 0.4 mg SL Q5M PRN PRN Reason: CHEST PAIN Nystatin (Nystop Powder -) 1 applic TP BID [facility] Last Admin: 03/30/17 09:16 Dose: 1 applic Oxymetazoline HCl (Afrin -) 2 spray NS BID PRN PRN Reason: NASAL CONGESTION Tamsulosin HCl (Flomax -) 0.4 mg PO DAILY@0830 [facility] Last Admin: 03/30/17 09:15 Dose: 0.4 mg - Objective Vital Signs: Vital Signs Temperature 98.4 F 03/30/17 09:10 Pulse Rate 69 03/30/17 10:47 Respiratory Rate 21 03/30/17 09:10 Blood Pressure 154/62 03/30/17 09:10 O2 Sat by Pulse Oximetry (%) 95 03/30/17 10:47 Eyes: Yes: WNL, Conjunctiva Clear, EOM Intact HENT: Yes: WNL, Atraumatic, Normocephalic Neck: Yes: WNL, Supple, Trachea Midline Cardiovascular: Yes: WNL, Regular Rate and Rhythm Respiratory: Yes: WNL, Regular, CTA Bilaterally Gastrointestinal: Yes: WNL, Normal Bowel Sounds Genitourinary: Yes: WNL Musculoskeletal: Yes: WNL Extremities: Yes: WNL Edema: No Integumentary: Yes: WNL Neurological: Yes: WNL, Alert, Oriented ...Motor Strength: WNL Psychiatric: Yes: WNL Labs: CBC, BMP 03/29/17 06:00 03/29/17 06:00 INR, PTT INR 1.03 (0.82-1.09) 03/22/17 05:15 Assessment/Plan Problems (1) Pneumonia Code(s): J18.9 - PNEUMONIA, UNSPECIFIED ORGANISM Qualifiers: Pneumonia type: due to unspecified organism Laterality: bilateral Lung location: lower lobe of lung Qualified Code(s): J18.9 - Pneumonia, unspecified organism (2) COPD exacerbation Code(s): J44.1 - CHRONIC OBSTRUCTIVE PULMONARY DISEASE W (ACUTE) EXACERBATION (3) Respiratory distress Code(s): R06.00 - DYSPNEA, UNSPECIFIED (4) CVA (cerebral vascular accident) Code(s): I63.9 - CEREBRAL INFARCTION, UNSPECIFIED Qualifiers: CVA mechanism: unspecified Qualified Code(s): I63.9 - Cerebral infarction, unspecified (5) HTN (hypertension) Code(s): I10 - ESSENTIAL (PRIMARY) HYPERTENSION Qualifiers: Hypertension type: essential hypertension Qualified Code(s): I10 - Essential (primary) hypertension (6) Thoracic aneurysm without mention of rupture Code(s): I71.2 - THORACIC AORTIC ANEURYSM, WITHOUT RUPTURE Qualifiers: Presence of rupture: without rupture Qualified Code(s): I71.2 - Thoracic aortic aneurysm, without rupture (7) Peripheral arterial disease Code(s): I73.9 - PERIPHERAL VASCULAR DISEASE, UNSPECIFIED Assessment/Plan Assessment/Plan 89 year old man with a history of HTN, HLD, CAD, Chronic diastolic CHF, past CVA /TIA, COPD, Prostate Ca, PAD with recent admission for PNA/sepsis, COPD exacerbation now readmitted with respiratory distress, leukocytosis and CT showing bilateral MRSA PNA. SOB-AE COPD and bilateral MRSA PNA: -receiving supp O2 and Abx Chest/Epigastric pain- -pt reports chronic daily episodes of chest pain 4-5x per day attributed to a hiatal hernia and upon further detailed questioning occur consistently after eating meals. CT scan shows duodenitits. -Normal LV function -cardiac enzymes wnl, ekg not significantly changed from prior ekgs, no arrhythmias on tele -ASA held due to duodenitis/GI bleed. -no bblocker given h/o sig conduction disease and COPD HTN-currently adequately controlled -Continue current meds Carotid stenosis-with reported stents and CEA -ASA 81mg daily if/when tolerated (see above)
--- NOTE | 2017-03-30 12:33 | PN ---
Progress Note, Physician History of Present Illness: feels very weak no specific complaints - Current Medication List Current Medications: Active Medications Acetaminophen (Tylenol -) 650 mg PO Q4H PRN PRN Reason: FEVER OR PAIN Last Admin: 03/28/17 23:11 Dose: 650 mg Al Hydroxide/Mg Hydroxide (Mylanta Oral Suspension -) 30 ml PO Q6HPO [facility] Last Admin: 03/30/17 11:54 Dose: 30 ml Albuterol Sulfate (Ventolin 0.083% Nebulizer Soln -) 1 amp NEB Q4H PRN PRN Reason: SHORT OF BREATH/WHEEZING Last Admin: 03/28/17 21:00 Dose: 1 amp Albuterol/Ipratropium (Duoneb -) 1 amp NEB QIDR [facility] Last Admin: 03/30/17 11:02 Dose: 1 amp Amlodipine Besylate (Norvasc -) 10 mg PO DAILY [facility] Last Admin: 03/30/17 09:15 Dose: 10 mg Atorvastatin Calcium (Lipitor -) 10 mg PO HS [facility] Last Admin: 03/29/17 21:47 Dose: 10 mg Cholecalciferol (Vitamin D3 -) 1,000 unit PO DAILY [facility] Last Admin: 03/30/17 09:15 Dose: 1,000 unit Cholestyramine Resin (Questran Light Packet -) 4 gm PO BID [facility] Last Admin: 03/30/17 09:16 Dose: 4 gm Guaifenesin (Mucinex -) 600 mg PO BID [facility] Last Admin: 03/30/17 09:15 Dose: 600 mg Hydralazine HCl (Apresoline -) 25 mg PO BID [facility] Last Admin: 03/30/17 09:15 Dose: 25 mg Vancomycin HCl 1,500 mg/ (Dextrose) 500 mls @ 166.667 mls/hr IVPB DAILY@1400 [facility]ARE[facility] PRN Reason: Protocol Last Admin: 03/29/17 16:51 Dose: 166.667 mls/hr Levetiracetam 250 mg/ (Levetiracetam 500 mg) 750 mg PO BID [facility] Last Admin: 03/30/17 09:15 Dose: 750 mg Loratadine (Claritin -) 10 mg PO DAILY [facility] Last Admin: 03/30/17 09:16 Dose: 10 mg Methylprednisolone Sodium Succinate (Solu-Medrol -) 40 mg IVPB BID [facility] Last Admin: 03/30/17 09:16 Dose: 40 mg Mometasone Furoate (Asmanex 220mcg -) 1 puff IH HS [facility] Last Admin: 03/29/17 21:46 Dose: 1 puff Montelukast Sodium (Singulair -) 10 mg PO HS [facility] Last Admin: 03/29/17 21:46 Dose: 10 mg Multi-Ingredient Ointment (Zinc Oxide) 1 applic TP TID [facility] Last Admin: 03/30/17 05:45 Dose: 1 applic Nitroglycerin (Nitrostat -) 0.4 mg SL Q5M PRN PRN Reason: CHEST PAIN Nystatin (Nystop Powder -) 1 applic TP BID [facility] Last Admin: 03/30/17 09:16 Dose: 1 applic Oxymetazoline HCl (Afrin -) 2 spray NS BID PRN PRN Reason: NASAL CONGESTION Tamsulosin HCl (Flomax -) 0.4 mg PO DAILY@0830 [facility] Last Admin: 03/30/17 09:15 Dose: 0.4 mg - Objective Vital Signs: Vital Signs Temperature 98.4 F 03/30/17 09:10 Pulse Rate 69 03/30/17 10:47 Respiratory Rate 21 03/30/17 09:10 Blood Pressure 154/62 03/30/17 09:10 O2 Sat by Pulse Oximetry (%) 95 03/30/17 10:47 Constitutional: Yes: No Distress, Calm Cardiovascular: Yes: S1, S2 Respiratory: Yes: On Nasal O2, Poor Air Entry, Rhonchi Gastrointestinal: Yes: Normal Bowel Sounds, Soft Musculoskeletal: Yes: Other Extremities: Yes: Other Edema: LLE: Trace, RLE: Trace Neurological: Yes: Alert, Oriented Psychiatric: Yes: Alert, Oriented Labs: CBC, BMP 03/29/17 06:00 03/29/17 06:00 INR, PTT INR 1.03 (0.82-1.09) 03/22/17 05:15 Assessment/Plan Problem List - Problems (1) Pneumonia Code(s): J18.9 - PNEUMONIA, UNSPECIFIED ORGANISM Qualifiers: Pneumonia type: due to unspecified organism Laterality: bilateral Lung location: lower lobe of lung Qualified Code(s): J18.9 - Pneumonia, unspecified organism (2) COPD exacerbation Code(s): J44.1 - CHRONIC OBSTRUCTIVE PULMONARY DISEASE W (ACUTE) EXACERBATION (3) YEISON (acute kidney injury) Code(s): N17.9 - ACUTE KIDNEY FAILURE, UNSPECIFIED (4) Acute respiratory failure Code(s): J96.00 - ACUTE RESPIRATORY FAILURE, UNSP W HYPOXIA OR HYPERCAPNIA (5) CHF (congestive heart failure) Code(s): I50.9 - HEART FAILURE, UNSPECIFIED Qualifiers: Congestive heart failure type: unspecified congestive heart failure type Congestive heart failure chronicity: unspecified congestive heart failure chronicity Qualified Code(s): I50.9 - Heart failure, unspecified (6) CVA (cerebral vascular accident) Code(s): I63.9 - CEREBRAL INFARCTION, UNSPECIFIED Qualifiers: CVA mechanism: unspecified Qualified Code(s): I63.9 - Cerebral infarction, unspecified (7) HTN (hypertension) Code(s): I10 - ESSENTIAL (PRIMARY) HYPERTENSION Qualifiers: Hypertension type: essential hypertension Qualified Code(s): I10 - Essential (primary) hypertension (8) Duodenitis Code(s): K29.80 - DUODENITIS WITHOUT BLEEDING 9 mrsa pneumonia plan mrsa pneumonia continue abx vanco trough noted adjusted the dose
--- NOTE | 2017-03-30 15:18 | PN ---
Progress Note (short form) - Note Progress Note: Patient seen and examined. Breathing a little better as compared to yesterday. Afebrile. History Source: Patient, Medical Record Limitations to Obtaining History: Clinical Condition - Past Medical History GAM[employer] WORKER: Yes: CVA, Dementia, TIA Cardiovascular: Yes: CAD, HTN Pulmonary: Yes: COPD Gastrointestinal: Yes: Other (HX OF PROGRESSIVE REGURGITATION FOR YEARS, PLACED ON OMEPRAZOLE BY PMD NO WORK UP EVER DONE DESPITE SYMPTOMS) Renal/: Yes: Cancer (prostate) - Past Surgical History Past Surgical History: Yes: Carotid Endarterectomy (carotid "stent" about 2 years go), Stent (carotid; denies cardiac stent) - Advance Directives Advance Directives: Yes: Living Will, Health Care Proxy, DNR - Smoking History Smoking history: Former smoker Have you smoked in the past 12 months: No Aproximately how many cigarettes per day: 0 If you are a former smoker, when did you quit?: over 20 years go - Alcohol/Substance Use Hx Alcohol Use: No - Social History ADL: Family Assistance History of Recent Travel: No Home Medications - Allergies Allergies/Adverse Reactions: Allergies Allergy/AdvReac Type Severity Reaction Status Date / Time Anesthetics - Angle Type- Allergy Unknown Verified 03/20/17 17:27 Parabens [Anesthetics - Angle Type] latex Allergy Verified 03/20/17 17:27 - Home Medications Home Medications: Ambulatory Orders Albuterol 0.083% Nebulizer Lela [Ventolin 0.083% Nebulizer Soln -] 1 neb NEB BID 09/30/14 Aspirin/Dipyridamole [Aggrenox -] 1 combo PO BID 09/30/14 Cholecalciferol (Vitamin D3) [Vitamin D3] 1,000 unit PO DAILY 09/30/14 Cholestyramine/Sucrose [Cholestyramine Packet] 4 gm PO BID PRN 09/30/14 Fluticasone Propionate [Flovent Hfa] 110 mg IH BID 09/30/14 Levetiracetam [Keppra -] 750 mg PO BID 09/30/14 Lipase/Protease/Amylase [Pancrease EC Capsule] 4 each PO DAILY 09/30/14 Loratadine 10 mg PO DAILY 09/30/14 Montelukast Na [Singulair -] 10 mg PO HS 09/30/14 Simvastatin [Zocor] 20 mg PO HS 09/30/14 Solifenacin Succinate [Vesicare] 10 mg PO DAILY 09/30/14 Tamsulosin HCl [Flomax -] 0.4 mg PO DAILY 09/30/14 Tiotropium [place] [Spiriva] 1 inh PO DAILY 09/30/14 Lipase/Protease/Amylase [Pancrelipase 5,000 Dr Capsule -] 2 each PO BIDWM #60 cap 10/06/14 Oxymetazoline 0.05% Nasal Soln [Afrin -] 2 spray NS BID PRN #7 spraybtl Ranitidine [Zantac -] 150 mg PO BID #30 tablet 10/06/14 Tramadol HCl 50 mg PO Q6H #20 tablet MDD 200mg 01/08/17 Amlodipine Besylate [Norvasc -] 10 mg PO DAILY #30 tablet 03/19/17 Azithromycin 500 mg PO DAILY #5 tablet 03/19/17 Cefuroxime Axetil [Ceftin -] 500 mg PO BID #14 tablet 03/19/17 Hydralazine HCl 10 mg PO BID #60 tablet 03/19/17 Prednisone [Deltasone -] See Taper PO DAILY #30 tablet 03/19/17 Menthol/Zinc Oxide [Calmoseptine Ointment] 71 gm TP QID 03/20/17 Nystatin Powder [Nystop Topical Powder -] 15 gm TP BID 03/20/17 Review of Systems - Review of Systems Constitutional: reports: Lethargy, Weakness Eyes: reports: No Symptoms HENT: reports: No Symptoms Neck: reports: Stiffness Cardiovascular: reports: Shortness of Breath Respiratory: reports: Cough, SOB, Wheezing Gastrointestinal: reports: Nausea Genitourinary: reports: No Symptoms Musculoskeletal: reports: Back Pain Neurological: reports: No Symptoms Physical Examination Vital Signs: Vital Signs Period Temp Pulse Resp BP Sys/Bush Pulse Ox Last 24 Hr 97.6 F-98.6 F 69-75 20-22 130-154/56-62 95-95 Constitutional: Yes: Moderate Distress, Obese Eyes: Yes: Conjunctiva Clear, EOM Intact HENT: Yes: Atraumatic, Normocephalic Neck: Yes: Supple, Trachea Midline Cardiovascular: Yes: Regular Rate and Rhythm Respiratory: Yes: Diminished (air entry decreased b/l lung base) Gastrointestinal: Yes: Normal Bowel Sounds, Soft ...Rectal Exam: Yes: Deferred Musculoskeletal: Yes: Back Pain Neurological: Yes: Alert, Oriented ...Motor Strength: WNL Psychiatric: Yes: Alert Imaging - Results Chest X-ray: Report Reviewed Cat Scan: Report Reviewed Current Medications Acetaminophen (Tylenol -) 650 mg PO Q4H PRN PRN Reason: FEVER OR PAIN Last Admin: 03/25/17 07:30 Dose: 650 mg Al Hydroxide/Mg Hydroxide (Mylanta Oral Suspension -) 30 ml PO Q6HPO [facility] Last Admin: 03/27/17 07:39 Dose: Not Given Albuterol Sulfate (Ventolin 0.083% Nebulizer Soln -) 1 amp NEB Q4H PRN PRN Reason: SHORT OF BREATH/WHEEZING Albuterol/Ipratropium (Duoneb -) 1 amp NEB QIDR [facility] Last Admin: 03/27/17 06:18 Dose: 1 amp Amlodipine Besylate (Norvasc -) 10 mg PO DAILY [facility] Last Admin: 03/27/17 10:31 Dose: 10 mg Atorvastatin Calcium (Lipitor -) 10 mg PO HS [facility] Last Admin: 03/27/17 00:10 Dose: 10 mg Chlorhexidine Gluconate (Hibiclens For Decolonization -) 1 applic TP [facility] Last Admin: 03/27/17 00:11 Dose: Not Given Cholecalciferol (Vitamin D3 -) 1,000 unit PO DAILY [facility] Last Admin: 03/27/17 10:30 Dose: 1,000 unit Cholestyramine Resin (Questran Light Packet -) 4 gm PO BID [facility] Last Admin: 03/27/17 10:32 Dose: 4 gm Guaifenesin (Mucinex -) 600 mg PO BID [facility] Last Admin: 03/27/17 10:31 Dose: 600 mg Hydralazine HCl (Apresoline -) 10 mg PO BID [facility] Last Admin: 03/27/17 10:31 Dose: 10 mg Pantoprazole Sodium (Protonix 40mg Ivpb (Pre-Docked)) 100 mls @ 200 mls/hr IVPB BID [facility] Last Admin: 03/27/17 10:32 Dose: 200 mls/hr Vancomycin HCl 1,250 mg/ (Dextrose) 250 mls @ 166.667 mls/hr IVPB DAILY@1400 CAREY PRN Reason: Protocol Last Admin: 03/26/17 15:00 Dose: 166.667 mls/hr Levetiracetam 250 mg/ (Levetiracetam 500 mg) 750 mg PO BID [facility] Last Admin: 03/27/17 10:30 Dose: 750 mg Loratadine (Claritin -) 10 mg PO DAILY [facility] Last Admin: 03/27/17 10:31 Dose: 10 mg Methylprednisolone Sodium Succinate (Solu-Medrol -) 40 mg IVPB BID [facility] Last Admin: 03/27/17 10:32 Dose: 40 mg Mometasone Furoate (Asmanex 220mcg -) 1 puff IH [facility] Last Admin: 03/27/17 00:11 Dose: 1 puff Montelukast Sodium (Singulair -) 10 mg PO [facility] Last Admin: 03/27/17 00:10 Dose: 10 mg Multi-Ingredient Ointment (Zinc Oxide) 1 applic TP TID [facility] Last Admin: 03/27/17 00:11 Dose: 1 applic Nitroglycerin (Nitrostat -) 0.4 mg SL [id number] PRN PRN Reason: CHEST PAIN Non-Formulary Medication (Lipase/Protease/Amylase [Pancrease Ec Capsule]) 4 each PO DAILY [facility] Nystatin (Nystop Powder -) 1 applic TP BID [facility] Last Admin: 03/27/17 10:33 Dose: 1 applic Oxymetazoline HCl (Afrin -) 2 spray NS BID PRN PRN Reason: NASAL CONGESTION Last Admin: 03/21/17 11:28 Dose: 2 spray Solifenacin (Vesicare -) 10 mg PO DAILY [facility] Last Admin: 03/27/17 10:31 Dose: 10 mg Tamsulosin HCl (Flomax -) 0.4 mg PO DAILY [facility] Last Admin: 03/27/17 10:31 Dose: 0.4 mg Problem List - Problems (1) Pneumonia Assessment/Plan: Improving. MSSA Pneumonia Continue IV abx. Pulmonary and ID follow up appreciated. Code(s): J18.9 - PNEUMONIA, UNSPECIFIED ORGANISM Qualifiers: Pneumonia type: due to unspecified organism Laterality: bilateral Lung location: lower lobe of lung Qualified Code(s): J18.9 - Pneumonia, unspecified organism (2) COPD exacerbation Assessment/Plan: Improving. Continue O2 NC/Inhaled bronchodilators/Solumedrol. Management per pulmonary. Code(s): J44.1 - CHRONIC OBSTRUCTIVE PULMONARY DISEASE W (ACUTE) EXACERBATION (3) YEISON (acute kidney injury) Assessment/Plan: Improving. Renal follow up appreciated. Code(s): N17.9 - ACUTE KIDNEY FAILURE, UNSPECIFIED (4) Acute respiratory failure Code(s): J96.00 - ACUTE RESPIRATORY FAILURE, UNSP W HYPOXIA OR HYPERCAPNIA Improving. Continue current management. BiPaP as needed. (5) CHF (congestive heart failure) Assessment/Plan: Stable. Chest x ray improved. Cardiology follow up appreciated. Will continue current management. Code(s): I50.9 - HEART FAILURE, UNSPECIFIED Qualifiers: Congestive heart failure type: unspecified congestive heart failure type Congestive heart failure chronicity: unspecified congestive heart failure chronicity Qualified Code(s): I50.9 - Heart failure, unspecified (6) CVA (cerebral vascular accident) Assessment/Plan: stable. Aggrenox on hold because of GI bleed Code(s): I63.9 - CEREBRAL INFARCTION, UNSPECIFIED Qualifiers: CVA mechanism: unspecified Qualified Code(s): I63.9 - Cerebral infarction, unspecified (7) HTN (hypertension) Code(s): I10 - ESSENTIAL (PRIMARY) HYPERTENSION Qualifiers: Hypertension type: essential hypertension Qualified Code(s): I10 - Essential (primary) hypertension Reasonable control. Continue current meds. (8) Duodenitis Assessment/Plan: CT Scan shows duodenitis. Patient with nausea, abdominal discomfort. GI follow up appreciated. Code(s): K29.80 - DUODENITIS WITHOUT BLEEDING 9) GI Bleed: S/P Transfusion. H/H improving. GI follow up appreciated. Problem List - Problems (1) Pneumonia Code(s): J18.9 - PNEUMONIA, UNSPECIFIED ORGANISM Qualifiers: Pneumonia type: due to unspecified organism Laterality: bilateral Lung location: lower lobe of lung Qualified Code(s): J18.9 - Pneumonia, unspecified organism (2) COPD exacerbation Code(s): J44.1 - CHRONIC OBSTRUCTIVE PULMONARY DISEASE W (ACUTE) EXACERBATION (3) YEISON (acute kidney injury) Code(s): N17.9 - ACUTE KIDNEY FAILURE, UNSPECIFIED (4) Acute respiratory failure Code(s): J96.00 - ACUTE RESPIRATORY FAILURE, UNSP W HYPOXIA OR HYPERCAPNIA Qualifiers: Respiratory failure complication: hypoxia Qualified Code(s): J96.01 - Acute respiratory failure with hypoxia (5) CHF (congestive heart failure) Code(s): I50.9 - HEART FAILURE, UNSPECIFIED Qualifiers: Congestive heart failure type: unspecified congestive heart failure type Congestive heart failure chronicity: unspecified congestive heart failure chronicity Qualified Code(s): I50.9 - Heart failure, unspecified (6) CVA (cerebral vascular accident) Code(s): I63.9 - CEREBRAL INFARCTION, UNSPECIFIED Qualifiers: CVA mechanism: unspecified Qualified Code(s): I63.9 - Cerebral infarction, unspecified (7) HTN (hypertension) Code(s): I10 - ESSENTIAL (PRIMARY) HYPERTENSION Qualifiers: Hypertension type: essential hypertension Qualified Code(s): I10 - Essential (primary) hypertension (8) Duodenitis Code(s): K29.80 - DUODENITIS WITHOUT BLEEDING
[2017-03-30] MEDS: VANCOMYCIN 1,500 MG in DEXTROSE 5%-WATER - 500 ML IVPB SCH (15:25)
[2017-03-30] MEDS: ATORVASTATIN CA 10 MG TABLET (FP) PO SCH (21:10)
[2017-03-30] MEDS: MOMETASONE FUROATE 220 MCG/IH INHALER IH SCH (21:10)
[2017-03-30] MEDS: MONTELUKAST NA 10 MG TABLET PO SCH (21:11)
[2017-03-31] MEDS: MAG HYDROX/AL HYDROX/SIMETH 30 ML UNIT-DOSE CUP PO SCH ×4 (00:27→19:14)
[2017-03-31] MEDS: ZINC OXIDE 20% TOPICAL OINTMENT 30 GM TUBE TP SCH ×3 (05:18→22:34)
[2017-03-31] MEDS: ALBUTEROL SO4 2.5/IPRATROPIUM 0.5 INH SOL 3 ML VIAL.NEB. NEB SCH ×3 (06:05→17:15)
[2017-03-31 08:08] LABS: MCH 30.5 pg (25.7-33.7); MCHC 33.3 g/dl (32.0-35.9); MEAN CELL VOLUME 91.6 fl (80-96); MEAN PLT VOLUME 7.8 fl (7.5-11.1); PLATELET COUNT 129 K/MM3 (134-434); RDW 17.1 % (11.9-15.9); WHITE BLOOD COUNT 8.4 K/mm3 (4.0-10.0)
[2017-03-31 08:28] LABS: ALBUMIN 2.4 g/dl (3.4-5.0); ANION GAP 6 (8-16); BILIRUBIN,TOTAL 0.7 mg/dL (0.2-1.0); CALCIUM 7.9 mg/dL (8.5-10.1); CO2 30 mmol/L (21-32); CREATININE 0.8 mg/dL (0.7-1.3); GLUCOSE,RANDOM 128 mg/dL (74-106); SGOT/AST 14 U/L (15-37); SGPT/ALT 26 U/L (12-78)
[2017-03-31 08:29] LABS: ALK PHOS 54 U/L (45-117)
[2017-03-31] MEDS: TAMSULOSIN HCL 0.4 MG CAP.ER.24H (FP) PO SCH (09:56)
[2017-03-31] MEDS: amLODIPine BESYLATE 10 MG TABLET (FP) PO SCH (09:56)
[2017-03-31] MEDS: hydrALAZINE HCL 25 MG TABLET (FP) PO SCH ×2 (09:56→22:28)
[2017-03-31] MEDS: methylPREDNISolone NA SUCC 40 MG/1 ML VIAL IVPB SCH ×2 (09:56→22:24)
[2017-03-31] MEDS: guaiFENesin 600 MG TABLET.ER (FP) PO SCH ×2 (09:56→22:24)
[2017-03-31] MEDS: LORATADINE 10 MG TABLET PO SCH (09:56)
[2017-03-31] MEDS: CHOLECALCIFEROL (VITAMIN D3) 1,000 UNIT TABLET (FP) PO SCH (09:56)
[2017-03-31] MEDS: NYSTATIN POWDER 100,000 UNITS/GM - 15 GM TOPICAL POWDER TP SCH ×2 (09:57→22:29)
[2017-03-31] MEDS ORDERED: PT OWN MED DRAWER 7, Y5N ONE (09:59)
[2017-03-31] MEDS: LEVETIRACETAM 250 MG, LEVETIRACETAM 500 MG PO SCH ×2 (10:00→22:25)
[2017-03-31] MEDS: CHOLESTYRAMINE/ASPARTAME 4 GM PACKET PO SCH ×2 (10:01→22:25)
--- NOTE | 2017-03-31 10:36 | PN ---
Progress Note (short form) - Note Progress Note: Patient seen and examined. Slightly more awake as compared to yesterday. Breathing looks better as compared to yesterday. Denies chest pain, shortness of breath Afebrile. 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 Cardiovascular: Yes: CAD, HTN Pulmonary: Yes: COPD Gastrointestinal: Yes: Other (HX OF PROGRESSIVE REGURGITATION FOR YEARS, PLACED ON OMEPRAZOLE BY PMD NO WORK UP EVER DONE DESPITE SYMPTOMS) Renal/: Yes: Cancer (prostate) - Past Surgical History Past Surgical History: Yes: Carotid Endarterectomy (carotid "stent" about 2 years go), Stent (carotid; denies cardiac stent) - Advance Directives Advance Directives: Yes: Living Will, Health Care Proxy, DNR - Smoking History Smoking history: Former smoker Have you smoked in the past 12 months: No Aproximately how many cigarettes per day: 0 If you are a former smoker, when did you quit?: over 20 years go - Alcohol/Substance Use Hx Alcohol Use: No - Social History ADL: Family Assistance History of Recent Travel: No Home Medications - Allergies Allergies/Adverse Reactions: Allergies Allergy/AdvReac Type Severity Reaction Status Date / Time Anesthetics - Angle Type- Allergy Unknown Verified 03/20/17 17:27 Parabens [Anesthetics - Angle Type] latex Allergy Verified 03/20/17 17:27 - Home Medications Home Medications: Ambulatory Orders Albuterol 0.083% Nebulizer Lela [Ventolin 0.083% Nebulizer Soln -] 1 neb NEB BID 09/30/14 Aspirin/Dipyridamole [Aggrenox -] 1 combo PO BID 09/30/14 Cholecalciferol (Vitamin D3) [Vitamin D3] 1,000 unit PO DAILY 09/30/14 Cholestyramine/Sucrose [Cholestyramine Packet] 4 gm PO BID PRN 09/30/14 Fluticasone Propionate [Flovent Hfa] 110 mg IH BID 09/30/14 Levetiracetam [Keppra -] 750 mg PO BID 09/30/14 Lipase/Protease/Amylase [Pancrease EC Capsule] 4 each PO DAILY 09/30/14 Loratadine 10 mg PO DAILY 09/30/14 Montelukast Na [Singulair -] 10 mg PO HS 09/30/14 Simvastatin [Zocor] 20 mg PO HS 09/30/14 Solifenacin Succinate [Vesicare] 10 mg PO DAILY 09/30/14 Tamsulosin HCl [Flomax -] 0.4 mg PO DAILY 09/30/14 Tiotropium Murdock [Spiriva] 1 inh PO DAILY 09/30/14 Lipase/Protease/Amylase [Pancrelipase 5,000 Dr Capsule -] 2 each PO BIDWM #60 cap 10/06/14 Oxymetazoline 0.05% Nasal Soln [Afrin -] 2 spray NS BID PRN #7 spraybtl Ranitidine [Zantac -] 150 mg PO BID #30 tablet 10/06/14 Tramadol HCl 50 mg PO Q6H #20 tablet MDD 200mg 01/08/17 Amlodipine Besylate [Norvasc -] 10 mg PO DAILY #30 tablet 03/19/17 Azithromycin 500 mg PO DAILY #5 tablet 03/19/17 Cefuroxime Axetil [Ceftin -] 500 mg PO BID #14 tablet 03/19/17 Hydralazine HCl 10 mg PO BID #60 tablet 03/19/17 Prednisone [Deltasone -] See Taper PO DAILY #30 tablet 03/19/17 Menthol/Zinc Oxide [Calmoseptine Ointment] 71 gm TP QID 03/20/17 Nystatin Powder [Nystop Topical Powder -] 15 gm TP BID 03/20/17 Review of Systems - Review of Systems Constitutional: reports: Lethargy, Weakness Eyes: reports: No Symptoms HENT: reports: No Symptoms Neck: reports: Stiffness Cardiovascular: reports: Shortness of Breath Respiratory: reports: Cough, SOB, Wheezing Gastrointestinal: reports: Nausea Genitourinary: reports: No Symptoms Musculoskeletal: reports: Back Pain Neurological: reports: No Symptoms Physical Examination Vital Signs: Vital Signs Period Temp Pulse Resp BP Sys/Bush Pulse Ox Last 24 Hr 97.5 F-98.9 F 64-75 20-20 131-148/52-62 95-96 Constitutional: Yes: Moderate Distress, Obese Eyes: Yes: Conjunctiva Clear, EOM Intact HENT: Yes: Atraumatic, Normocephalic Neck: Yes: Supple, Trachea Midline Cardiovascular: Yes: Regular Rate and Rhythm Respiratory: Yes: Diminished (air entry decreased b/l lung base) Gastrointestinal: Yes: Normal Bowel Sounds, Soft ...Rectal Exam: Yes: Deferred Musculoskeletal: Yes: Back Pain Neurological: Yes: Alert, Oriented ...Motor Strength: WNL Psychiatric: Yes: Alert Imaging - Results Chest X-ray: Report Reviewed Cat Scan: Report Reviewed Current Medications Acetaminophen (Tylenol -) 650 mg PO Q4H PRN PRN Reason: FEVER OR PAIN Last Admin: 03/25/17 07:30 Dose: 650 mg Al Hydroxide/Mg Hydroxide (Mylanta Oral Suspension -) 30 ml PO Q6HPO [facility] Last Admin: 03/27/17 07:39 Dose: Not Given Albuterol Sulfate (Ventolin 0.083% Nebulizer Soln -) 1 amp NEB Q4H PRN PRN Reason: SHORT OF BREATH/WHEEZING Albuterol/Ipratropium (Duoneb -) 1 amp NEB QIDR [facility] Last Admin: 03/27/17 06:18 Dose: 1 amp Amlodipine Besylate (Norvasc -) 10 mg PO DAILY [facility] Last Admin: 03/27/17 10:31 Dose: 10 mg Atorvastatin Calcium (Lipitor -) 10 mg PO HS [facility] Last Admin: 03/27/17 00:10 Dose: 10 mg Chlorhexidine Gluconate (Hibiclens For Decolonization -) 1 applic TP [facility] Last Admin: 03/27/17 00:11 Dose: Not Given Cholecalciferol (Vitamin D3 -) 1,000 unit PO DAILY [facility] Last Admin: 03/27/17 10:30 Dose: 1,000 unit Cholestyramine Resin (Questran Light Packet -) 4 gm PO BID [facility] Last Admin: 03/27/17 10:32 Dose: 4 gm Guaifenesin (Mucinex -) 600 mg PO BID [facility] Last Admin: 03/27/17 10:31 Dose: 600 mg Hydralazine HCl (Apresoline -) 10 mg PO BID [facility] Last Admin: 03/27/17 10:31 Dose: 10 mg Pantoprazole Sodium (Protonix 40mg Ivpb (Pre-Docked)) 100 mls @ 200 mls/hr IVPB BID [facility] Last Admin: 03/27/17 10:32 Dose: 200 mls/hr Vancomycin HCl 1,250 mg/ (Dextrose) 250 mls @ 166.667 mls/hr IVPB DAILY@1400 [facility] PRN Reason: Protocol Last Admin: 03/26/17 15:00 Dose: 166.667 mls/hr Levetiracetam 250 mg/ (Levetiracetam 500 mg) 750 mg PO BID [facility] Last Admin: 03/27/17 10:30 Dose: 750 mg Loratadine (Claritin -) 10 mg PO DAILY [facility] Last Admin: 03/27/17 10:31 Dose: 10 mg Methylprednisolone Sodium Succinate (Solu-Medrol -) 40 mg IVPB BID [facility] Last Admin: 03/27/17 10:32 Dose: 40 mg Mometasone Furoate (Asmanex 220mcg -) 1 puff IH [facility] Last Admin: 03/27/17 00:11 Dose: 1 puff Montelukast Sodium (Singulair -) 10 mg PO [facility] Last Admin: 03/27/17 00:10 Dose: 10 mg Multi-Ingredient Ointment (Zinc Oxide) 1 applic TP TID [facility] Last Admin: 03/27/17 00:11 Dose: 1 applic Nitroglycerin (Nitrostat -) 0.4 mg SL [id number] PRN PRN Reason: CHEST PAIN Non-Formulary Medication (Lipase/Protease/Amylase [Pancrease Ec Capsule]) 4 each PO DAILY [facility] Nystatin (Nystop Powder -) 1 applic TP BID [facility] Last Admin: 03/27/17 10:33 Dose: 1 applic Oxymetazoline HCl (Afrin -) 2 spray NS BID PRN PRN Reason: NASAL CONGESTION Last Admin: 03/21/17 11:28 Dose: 2 spray Solifenacin (Vesicare -) 10 mg PO DAILY [facility] Last Admin: 03/27/17 10:31 Dose: 10 mg Tamsulosin HCl (Flomax -) 0.4 mg PO DAILY [facility] Last Admin: 03/27/17 10:31 Dose: 0.4 mg Problem List - Problems (1) Pneumonia Assessment/Plan: Improving. MSSA Pneumonia Continue IV abx. Pulmonary and ID follow up appreciated. Code(s): J18.9 - PNEUMONIA, UNSPECIFIED ORGANISM Qualifiers: Pneumonia type: due to unspecified organism Laterality: bilateral Lung location: lower lobe of lung Qualified Code(s): J18.9 - Pneumonia, unspecified organism (2) COPD exacerbation Assessment/Plan: Improving. Continue O2 NC/Inhaled bronchodilators/Solumedrol. Management per pulmonary. Code(s): J44.1 - CHRONIC OBSTRUCTIVE PULMONARY DISEASE W (ACUTE) EXACERBATION (3) YEISON (acute kidney injury) Assessment/Plan: Improving. Renal follow up appreciated. Code(s): N17.9 - ACUTE KIDNEY FAILURE, UNSPECIFIED (4) Acute respiratory failure Code(s): J96.00 - ACUTE RESPIRATORY FAILURE, UNSP W HYPOXIA OR HYPERCAPNIA Improving. Continue current management. BiPaP as needed. (5) CHF (congestive heart failure) Assessment/Plan: Stable. Chest x ray improved. Cardiology follow up appreciated. Will continue current management. Code(s): I50.9 - HEART FAILURE, UNSPECIFIED Qualifiers: Congestive heart failure type: unspecified congestive heart failure type Congestive heart failure chronicity: unspecified congestive heart failure chronicity Qualified Code(s): I50.9 - Heart failure, unspecified (6) CVA (cerebral vascular accident) Assessment/Plan: stable. Aggrenox on hold because of GI bleed Code(s): I63.9 - CEREBRAL INFARCTION, UNSPECIFIED Qualifiers: CVA mechanism: unspecified Qualified Code(s): I63.9 - Cerebral infarction, unspecified (7) HTN (hypertension) Code(s): I10 - ESSENTIAL (PRIMARY) HYPERTENSION Qualifiers: Hypertension type: essential hypertension Qualified Code(s): I10 - Essential (primary) hypertension Reasonable control. Continue current meds. (8) Duodenitis Assessment/Plan: CT Scan shows duodenitis. Patient with nausea, abdominal discomfort. GI follow up appreciated. Code(s): K29.80 - DUODENITIS WITHOUT BLEEDING 9) GI Bleed: S/P Transfusion. H/H improving. GI follow up appreciated. Problem List - Problems (1) Pneumonia Code(s): J18.9 - PNEUMONIA, UNSPECIFIED ORGANISM Qualifiers: Pneumonia type: due to unspecified organism Laterality: bilateral Lung location: lower lobe of lung Qualified Code(s): J18.9 - Pneumonia, unspecified organism (2) COPD exacerbation Code(s): J44.1 - CHRONIC OBSTRUCTIVE PULMONARY DISEASE W (ACUTE) EXACERBATION (3) YEISON (acute kidney injury) Code(s): N17.9 - ACUTE KIDNEY FAILURE, UNSPECIFIED (4) Acute respiratory failure Code(s): J96.00 - ACUTE RESPIRATORY FAILURE, UNSP W HYPOXIA OR HYPERCAPNIA Qualifiers: Respiratory failure complication: hypoxia Qualified Code(s): J96.01 - Acute respiratory failure with hypoxia (5) CHF (congestive heart failure) Code(s): I50.9 - HEART FAILURE, UNSPECIFIED Qualifiers: Congestive heart failure type: unspecified congestive heart failure type Congestive heart failure chronicity: unspecified congestive heart failure chronicity Qualified Code(s): I50.9 - Heart failure, unspecified (6) CVA (cerebral vascular accident) Code(s): I63.9 - CEREBRAL INFARCTION, UNSPECIFIED Qualifiers: CVA mechanism: unspecified Qualified Code(s): I63.9 - Cerebral infarction, unspecified (7) HTN (hypertension) Code(s): I10 - ESSENTIAL (PRIMARY) HYPERTENSION Qualifiers: Hypertension type: essential hypertension Qualified Code(s): I10 - Essential (primary) hypertension (8) Duodenitis Code(s): K29.80 - DUODENITIS WITHOUT BLEEDING
[2017-03-31 11:03] LABS: PLATELET ESTIMATE SLT DECREASED (NORMAL)
--- NOTE | 2017-03-31 11:06 | PN ---
Progress Note, Physician History of Present Illness: seen and examined today in nad. states he is feeling about the same today. no overnight events. no new complaints. - Current Medication List Current Medications: Active Medications Acetaminophen (Tylenol -) 650 mg PO Q4H PRN PRN Reason: FEVER OR PAIN Last Admin: 03/28/17 23:11 Dose: 650 mg Al Hydroxide/Mg Hydroxide (Mylanta Oral Suspension -) 30 ml PO Q6HPO [facility] Last Admin: 03/31/17 05:18 Dose: 30 ml Albuterol Sulfate (Ventolin 0.083% Nebulizer Soln -) 1 amp NEB Q4H PRN PRN Reason: SHORT OF BREATH/WHEEZING Last Admin: 03/28/17 21:00 Dose: 1 amp Albuterol/Ipratropium (Duoneb -) 1 amp NEB QIDR [facility] Last Admin: 03/31/17 06:05 Dose: 1 amp Amlodipine Besylate (Norvasc -) 10 mg PO DAILY [facility] Last Admin: 03/31/17 09:56 Dose: 10 mg Atorvastatin Calcium (Lipitor -) 10 mg PO HS [facility] Last Admin: 03/30/17 21:10 Dose: 10 mg Cholecalciferol (Vitamin D3 -) 1,000 unit PO DAILY [facility] Last Admin: 03/31/17 09:56 Dose: 1,000 unit Cholestyramine Resin (Questran Light Packet -) 4 gm PO BID [facility] Last Admin: 03/31/17 10:01 Dose: 4 gm Guaifenesin (Mucinex -) 600 mg PO BID [facility] Last Admin: 03/31/17 09:56 Dose: 600 mg Hydralazine HCl (Apresoline -) 25 mg PO BID [facility] Last Admin: 03/31/17 09:56 Dose: 25 mg Vancomycin HCl 1,500 mg/ (Dextrose) 500 mls @ 166.667 mls/hr IVPB DAILY@1400 [facility] PRN Reason: Protocol Last Admin: 03/30/17 15:25 Dose: 166.667 mls/hr Levetiracetam 250 mg/ (Levetiracetam 500 mg) 750 mg PO BID [facility] Last Admin: 03/31/17 10:00 Dose: 750 mg Loratadine (Claritin -) 10 mg PO DAILY [facility] Last Admin: 03/31/17 09:56 Dose: 10 mg Methylprednisolone Sodium Succinate (Solu-Medrol -) 40 mg IVPB BID [facility] Last Admin: 03/31/17 09:56 Dose: 40 mg Mometasone Furoate (Asmanex 220mcg -) 1 puff IH [facility] Last Admin: 03/30/17 21:10 Dose: 1 puff Montelukast Sodium (Singulair -) 10 mg PO [facility] Last Admin: 03/30/17 21:11 Dose: 10 mg Multi-Ingredient Ointment (Zinc Oxide) 1 applic TP TID [facility] Last Admin: 03/31/17 05:18 Dose: 1 applic Nitroglycerin (Nitrostat -) 0.4 mg SL Q5M PRN PRN Reason: CHEST PAIN Nystatin (Nystop Powder -) 1 applic TP BID [facility] Last Admin: 03/31/17 09:57 Dose: 1 applic Oxymetazoline HCl (Afrin -) 2 spray NS BID PRN PRN Reason: NASAL CONGESTION Tamsulosin HCl (Flomax -) 0.4 mg PO DAILY@0830 [facility] Last Admin: 03/31/17 09:56 Dose: 0.4 mg - Objective Vital Signs: Vital Signs Temperature 98.3 F 03/31/17 09:52 Pulse Rate 64 03/31/17 09:52 Respiratory Rate 20 03/31/17 09:52 Blood Pressure 148/55 03/31/17 09:52 O2 Sat by Pulse Oximetry (%) 96 03/30/17 20:46 Constitutional: Yes: No Distress, Calm Eyes: Yes: Conjunctiva Clear, EOM Intact, PERRL HENT: Yes: Atraumatic, Normocephalic Neck: Yes: Supple, Trachea Midline Cardiovascular: Yes: Regular Rate and Rhythm, S1, S2. No: Bradycardia, Tachycardia, Pulse Irregular, Bruit, JVD, Gallop, Murmur, Rub, S3, S4, Varicosities Respiratory: Yes: Regular, Diminished, On Nasal O2, Rhonchi. No: Rales, SOB, Wheezes Gastrointestinal: Yes: Normal Bowel Sounds, Soft. No: Distention, Tenderness Edema: No Peripheral Pulses WNL: Yes Peripheral Pulses: Left Doralis Pedis: 2+, Right Dorsalis Pedis: 2+ Neurological: Yes: Alert, Oriented Psychiatric: Yes: Alert, Oriented Labs: CBC, BMP 03/31/17 06:40 03/31/17 06:40 INR, PTT INR 1.03 (0.82-1.09) 03/22/17 05:15 - ....Imaging Chest X-ray: Report Reviewed, Image Reviewed EKG: Report Reviewed, Image Reviewed Other: Report Reviewed, Image Reviewed Assessment/Plan 89 year old man with a history of HTN, HLD, CAD, Chronic diastolic CHF, past CVA /TIA, COPD, Prostate Ca, PAD with recent admission for PNA/sepsis, COPD exacerbation now readmitted with respiratory distress, leukocytosis and CT showing bilateral MRSA PNA. SOB-AE COPD and bilateral MRSA PNA -receiving supp O2 and Abx -does not require diuresis at this point Chest/Epigastric pain-chronic atypical chest pain -Normal LV function on echo -cardiac enzymes were wnl, ekg not significantly changed from prior ekgs, no arrhythmias when pt was on tele -ASA held due to duodenitis/GI bleed. -no bblocker given h/o sig conduction disease and COPD HTN-adequately controlled -Cont current meds with amlodipine and hydralazine Carotid stenosis-with reported stents and CEA in the past -resume ASA 81mg daily if/when tolerated
[2017-03-31] MEDS: VANCOMYCIN 1,500 MG in DEXTROSE 5%-WATER - 500 ML IVPB SCH (13:17)
--- NOTE | 2017-03-31 15:36 | PN ---
Progress Note, Physician History of Present Illness: feels very weak no specific complaints eating still not able to come out of bed - Current Medication List Current Medications: Active Medications Acetaminophen (Tylenol -) 650 mg PO Q4H PRN PRN Reason: FEVER OR PAIN Last Admin: 03/28/17 23:11 Dose: 650 mg Al Hydroxide/Mg Hydroxide (Mylanta Oral Suspension -) 30 ml PO Q6HPO [facility] Last Admin: 03/31/17 13:18 Dose: 30 ml Albuterol Sulfate (Ventolin 0.083% Nebulizer Soln -) 1 amp NEB Q4H PRN PRN Reason: SHORT OF BREATH/WHEEZING Last Admin: 03/28/17 21:00 Dose: 1 amp Albuterol/Ipratropium (Duoneb -) 1 amp NEB QIDR [facility] Last Admin: 03/31/17 10:45 Dose: 1 amp Amlodipine Besylate (Norvasc -) 10 mg PO DAILY [facility] Last Admin: 03/31/17 09:56 Dose: 10 mg Atorvastatin Calcium (Lipitor -) 10 mg PO HS [facility] Last Admin: 03/30/17 21:10 Dose: 10 mg Cholecalciferol (Vitamin D3 -) 1,000 unit PO DAILY [facility] Last Admin: 03/31/17 09:56 Dose: 1,000 unit Cholestyramine Resin (Questran Light Packet -) 4 gm PO BID [facility] Last Admin: 03/31/17 10:01 Dose: 4 gm Guaifenesin (Mucinex -) 600 mg PO BID [facility] Last Admin: 03/31/17 09:56 Dose: 600 mg Hydralazine HCl (Apresoline -) 25 mg PO BID [facility] Last Admin: 03/31/17 09:56 Dose: 25 mg Vancomycin HCl 1,500 mg/ (Dextrose) 500 mls @ 166.667 mls/hr IVPB DAILY@1400 [facility] PRN Reason: Protocol Last Admin: 03/31/17 13:17 Dose: 166.667 mls/hr Levetiracetam 250 mg/ (Levetiracetam 500 mg) 750 mg PO BID [facility] Last Admin: 03/31/17 10:00 Dose: 750 mg Loratadine (Claritin -) 10 mg PO DAILY [facility] Last Admin: 03/31/17 09:56 Dose: 10 mg Methylprednisolone Sodium Succinate (Solu-Medrol -) 40 mg IVPB BID [facility] Last Admin: 03/31/17 09:56 Dose: 40 mg Mometasone Furoate (Asmanex 220mcg -) 1 puff IH [facility] Last Admin: 03/30/17 21:10 Dose: 1 puff Montelukast Sodium (Singulair -) 10 mg PO [facility] Last Admin: 03/30/17 21:11 Dose: 10 mg Multi-Ingredient Ointment (Zinc Oxide) 1 applic TP TID [facility] Last Admin: 03/31/17 13:18 Dose: 1 applic Nitroglycerin (Nitrostat -) 0.4 mg SL Q5M PRN PRN Reason: CHEST PAIN Nystatin (Nystop Powder -) 1 applic TP BID [facility] Last Admin: 03/31/17 09:57 Dose: 1 applic Oxymetazoline HCl (Afrin -) 2 spray NS BID PRN PRN Reason: NASAL CONGESTION Tamsulosin HCl (Flomax -) 0.4 mg PO DAILY@0830 [facility] Last Admin: 03/31/17 09:56 Dose: 0.4 mg - Objective Vital Signs: Vital Signs Temperature 98.5 F 03/31/17 15:24 Pulse Rate 68 03/31/17 15:24 Respiratory Rate 20 03/31/17 15:24 Blood Pressure 138/50 03/31/17 15:24 O2 Sat by Pulse Oximetry (%) 93 L 03/31/17 10:45 Constitutional: Yes: Calm, Mild Distress Cardiovascular: Yes: Regular Rate and Rhythm Respiratory: Yes: Regular, Poor Air Entry, Rhonchi Gastrointestinal: Yes: Normal Bowel Sounds, Soft Musculoskeletal: Yes: Other Extremities: Yes: Other (edema of upper ext) Edema: LUE: 1+, RUE: 1+ Neurological: Yes: Alert, Oriented Psychiatric: Yes: Alert, Oriented Labs: CBC, BMP 03/31/17 06:40 03/31/17 06:40 INR, PTT INR 1.03 (0.82-1.09) 03/22/17 05:15 Assessment/Plan Problem List - Problems (1) Pneumonia Code(s): J18.9 - PNEUMONIA, UNSPECIFIED ORGANISM Qualifiers: Pneumonia type: due to unspecified organism Laterality: bilateral Lung location: lower lobe of lung Qualified Code(s): J18.9 - Pneumonia, unspecified organism (2) COPD exacerbation Code(s): J44.1 - CHRONIC OBSTRUCTIVE PULMONARY DISEASE W (ACUTE) EXACERBATION (3) YEISON (acute kidney injury) Code(s): N17.9 - ACUTE KIDNEY FAILURE, UNSPECIFIED (4) Acute respiratory failure Code(s): J96.00 - ACUTE RESPIRATORY FAILURE, UNSP W HYPOXIA OR HYPERCAPNIA (5) CHF (congestive heart failure) Code(s): I50.9 - HEART FAILURE, UNSPECIFIED Qualifiers: Congestive heart failure type: unspecified congestive heart failure type Congestive heart failure chronicity: unspecified congestive heart failure chronicity Qualified Code(s): I50.9 - Heart failure, unspecified (6) CVA (cerebral vascular accident) Code(s): I63.9 - CEREBRAL INFARCTION, UNSPECIFIED Qualifiers: CVA mechanism: unspecified Qualified Code(s): I63.9 - Cerebral infarction, unspecified (7) HTN (hypertension) Code(s): I10 - ESSENTIAL (PRIMARY) HYPERTENSION Qualifiers: Hypertension type: essential hypertension Qualified Code(s): I10 - Essential (primary) hypertension (8) Duodenitis Code(s): K29.80 - DUODENITIS WITHOUT BLEEDING 9 mrsa pneumonia plan mrsa pneumonia continue abx continue current mgmt physio
--- NOTE | 2017-03-31 16:14 | PN ---
Progress Note, Physician History of Present Illness: pulmonary awake,less congested - Current Medication List Current Medications: Active Medications Acetaminophen (Tylenol -) 650 mg PO Q4H PRN PRN Reason: FEVER OR PAIN Last Admin: 03/28/17 23:11 Dose: 650 mg Al Hydroxide/Mg Hydroxide (Mylanta Oral Suspension -) 30 ml PO Q6HPO [facility] Last Admin: 03/31/17 13:18 Dose: 30 ml Albuterol Sulfate (Ventolin 0.083% Nebulizer Soln -) 1 amp NEB Q4H PRN PRN Reason: SHORT OF BREATH/WHEEZING Last Admin: 03/28/17 21:00 Dose: 1 amp Albuterol/Ipratropium (Duoneb -) 1 amp NEB QIDR [facility] Last Admin: 03/31/17 10:45 Dose: 1 amp Amlodipine Besylate (Norvasc -) 10 mg PO DAILY [facility] Last Admin: 03/31/17 09:56 Dose: 10 mg Atorvastatin Calcium (Lipitor -) 10 mg PO HS [facility] Last Admin: 03/30/17 21:10 Dose: 10 mg Cholecalciferol (Vitamin D3 -) 1,000 unit PO DAILY [facility] Last Admin: 03/31/17 09:56 Dose: 1,000 unit Cholestyramine Resin (Questran Light Packet -) 4 gm PO BID [facility] Last Admin: 03/31/17 10:01 Dose: 4 gm Guaifenesin (Mucinex -) 600 mg PO BID [facility] Last Admin: 03/31/17 09:56 Dose: 600 mg Hydralazine HCl (Apresoline -) 25 mg PO BID [facility] Last Admin: 03/31/17 09:56 Dose: 25 mg Vancomycin HCl 1,500 mg/ (Dextrose) 500 mls @ 166.667 mls/hr IVPB DAILY@1400 [facility] PRN Reason: Protocol Last Admin: 03/31/17 13:17 Dose: 166.667 mls/hr Levetiracetam 250 mg/ (Levetiracetam 500 mg) 750 mg PO BID [facility] Last Admin: 03/31/17 10:00 Dose: 750 mg Loratadine (Claritin -) 10 mg PO DAILY [facility] Last Admin: 03/31/17 09:56 Dose: 10 mg Methylprednisolone Sodium Succinate (Solu-Medrol -) 40 mg IVPB BID [facility] Last Admin: 03/31/17 09:56 Dose: 40 mg Mometasone Furoate (Asmanex 220mcg -) 1 puff [facility] Last Admin: 03/30/17 21:10 Dose: 1 puff Montelukast Sodium (Singulair -) 10 mg PO HS [facility] Last Admin: 03/30/17 21:11 Dose: 10 mg Multi-Ingredient Ointment (Zinc Oxide) 1 applic TP TID [facility] Last Admin: 03/31/17 13:18 Dose: 1 applic Nitroglycerin (Nitrostat -) 0.4 mg SL Q5M PRN PRN Reason: CHEST PAIN Nystatin (Nystop Powder -) 1 applic TP BID [facility] Last Admin: 03/31/17 09:57 Dose: 1 applic Oxymetazoline HCl (Afrin -) 2 spray NS BID PRN PRN Reason: NASAL CONGESTION Tamsulosin HCl (Flomax -) 0.4 mg PO DAILY@0830 [facility] Last Admin: 03/31/17 09:56 Dose: 0.4 mg - Objective Vital Signs: Vital Signs Temperature 98.5 F 03/31/17 15:24 Pulse Rate 68 03/31/17 15:24 Respiratory Rate 20 03/31/17 15:24 Blood Pressure 138/50 03/31/17 15:24 O2 Sat by Pulse Oximetry (%) 93 L 03/31/17 10:45 Constitutional: Yes: Well Nourished, Calm Eyes: Yes: WNL HENT: Yes: WNL Neck: Yes: WNL Cardiovascular: Yes: Regular Rate and Rhythm, S1, S2 Respiratory: Yes: Rhonchi (scattered rhonchi). No: Wheezes Gastrointestinal: Yes: Normal Bowel Sounds, Soft Extremities: Yes: WNL Edema: Yes Labs: CBC, BMP 03/31/17 06:40 03/31/17 06:40 INR, PTT INR 1.03 (0.82-1.09) 03/22/17 05:15 Problem List - Problems (1) COPD exacerbation Code(s): J44.1 - CHRONIC OBSTRUCTIVE PULMONARY DISEASE W (ACUTE) EXACERBATION (2) Duodenitis Code(s): K29.80 - DUODENITIS WITHOUT BLEEDING (3) GI bleed Code(s): K92.2 - GASTROINTESTINAL HEMORRHAGE, UNSPECIFIED (4) Peripheral arterial disease Code(s): I73.9 - PERIPHERAL VASCULAR DISEASE, UNSPECIFIED (5) Pneumonia Code(s): J18.9 - PNEUMONIA, UNSPECIFIED ORGANISM Qualifiers: Pneumonia type: due to unspecified organism Laterality: bilateral Lung location: lower lobe of lung Qualified Code(s): J18.9 - Pneumonia, unspecified organism (6) Respiratory distress Code(s): R06.00 - DYSPNEA, UNSPECIFIED (7) YEISON (acute kidney injury) Code(s): N17.9 - ACUTE KIDNEY FAILURE, UNSPECIFIED (8) CAD (coronary artery disease) Code(s): I25.10 - ATHSCL HEART DISEASE OF [place] CORONARY ARTERY W/O ANG PCTRS Qualifiers: Coronary Disease-Associated Artery/Lesion type: [place] artery [place] vs. transplanted heart: [place] heart Associated angina: angina presence unspecified Qualified Code(s): I25.10 - Atherosclerotic heart disease of [place] coronary artery without angina pectoris (9) CHF (congestive heart failure) Code(s): I50.9 - HEART FAILURE, UNSPECIFIED Qualifiers: Congestive heart failure type: unspecified congestive heart failure type Congestive heart failure chronicity: unspecified congestive heart failure chronicity Qualified Code(s): I50.9 - Heart failure, unspecified (10) CVA (cerebral vascular accident) Code(s): I63.9 - CEREBRAL INFARCTION, UNSPECIFIED Qualifiers: CVA mechanism: unspecified Qualified Code(s): I63.9 - Cerebral infarction, unspecified (11) Acute and chronic respiratory failure with hypoxia Code(s): J96.21 - ACUTE AND CHRONIC RESPIRATORY FAILURE WITH HYPOXIA (12) Thoracic aneurysm without mention of rupture Code(s): I71.2 - THORACIC AORTIC ANEURYSM, WITHOUT RUPTURE Qualifiers: Presence of rupture: without rupture Qualified Code(s): I71.2 - Thoracic aortic aneurysm, without rupture (13) Acute respiratory failure Code(s): J96.00 - ACUTE RESPIRATORY FAILURE, UNSP W HYPOXIA OR HYPERCAPNIA Qualifiers: Respiratory failure complication: hypoxia Qualified Code(s): J96.01 - Acute respiratory failure with hypoxia Assessment/Plan ASSESSMENT AND PLAN: Acute on Chronic Hypoxic Respiratory Failure improving Pneumonia COPD Exacerbation CAD LV Diastolic Dysfunction GI Bleed Anemia Lymphoma - antibiotics per ID - medrol taper - inhaled bronchodilators - O2 to keep SpO2 >90% - aspiration precautions - BiPAP PRN - DVT prophylaxis DR CHILD
[2017-03-31] MEDS: MONTELUKAST NA 10 MG TABLET PO SCH (22:24)
[2017-03-31] MEDS: ATORVASTATIN CA 10 MG TABLET (FP) PO SCH (22:25)
[2017-03-31] MEDS: MOMETASONE FUROATE 220 MCG/IH INHALER IH SCH (22:25)
[2017-04-01] MEDS: MAG HYDROX/AL HYDROX/SIMETH 30 ML UNIT-DOSE CUP PO SCH ×4 (00:08→18:29)
[2017-04-01] MEDS: ALBUTEROL SO4 2.5/IPRATROPIUM 0.5 INH SOL 3 ML VIAL.NEB. NEB SCH ×4 (00:09→18:29)
[2017-04-01] MEDS: ZINC OXIDE 20% TOPICAL OINTMENT 30 GM TUBE TP SCH ×3 (05:52→21:26)
[2017-04-01 07:58] LABS: MCH 30.3 pg (25.7-33.7); MCHC 32.8 g/dl (32.0-35.9); MEAN CELL VOLUME 92.7 fl (80-96); MEAN PLT VOLUME 7.7 fl (7.5-11.1); PLATELET COUNT 114 K/MM3 (134-434); RDW 17.5 % (11.9-15.9); WHITE BLOOD COUNT 7.8 K/mm3 (4.0-10.0)
[2017-04-01 08:39] LABS: ALBUMIN 2.3 g/dl (3.4-5.0); ANION GAP 8 (8-16); CALCIUM 7.9 mg/dL (8.5-10.1); CO2 29 mmol/L (21-32); CREATININE 0.8 mg/dL (0.7-1.3); GLUCOSE,RANDOM 164 mg/dL (74-106); SGOT/AST 15 U/L (15-37); SGPT/ALT 26 U/L (12-78)
[2017-04-01 08:41] LABS: ALK PHOS 56 U/L (45-117); BILIRUBIN,TOTAL 0.4 mg/dL (0.2-1.0); TOT PROT 4.8 g/dl (6.4-8.2)
--- NOTE | 2017-04-01 10:02 | PN ---
Progress Note, Physician Chief Complaint: appears more alert still coughing - Current Medication List Current Medications: Active Medications Acetaminophen (Tylenol -) 650 mg PO Q4H PRN PRN Reason: FEVER OR PAIN Last Admin: 03/28/17 23:11 Dose: 650 mg Al Hydroxide/Mg Hydroxide (Mylanta Oral Suspension -) 30 ml PO Q6HPO [facility] Last Admin: 04/01/17 05:52 Dose: 30 ml Albuterol Sulfate (Ventolin 0.083% Nebulizer Soln -) 1 amp NEB Q4H PRN PRN Reason: SHORT OF BREATH/WHEEZING Last Admin: 03/28/17 21:00 Dose: 1 amp Albuterol/Ipratropium (Duoneb -) 1 amp NEB QIDR [facility] Last Admin: 04/01/17 06:20 Dose: 1 amp Amlodipine Besylate (Norvasc -) 10 mg PO DAILY [facility] Last Admin: 03/31/17 09:56 Dose: 10 mg Atorvastatin Calcium (Lipitor -) 10 mg PO HS [facility] Last Admin: 03/31/17 22:25 Dose: 10 mg Cholecalciferol (Vitamin D3 -) 1,000 unit PO DAILY [facility] Last Admin: 03/31/17 09:56 Dose: 1,000 unit Cholestyramine Resin (Questran Light Packet -) 4 gm PO BID [facility] Last Admin: 03/31/17 22:25 Dose: 4 gm Guaifenesin (Mucinex -) 600 mg PO BID [facility] Last Admin: 03/31/17 22:24 Dose: 600 mg Hydralazine HCl (Apresoline -) 25 mg PO BID [facility] Last Admin: 03/31/17 22:28 Dose: 25 mg Vancomycin HCl 1,500 mg/ (Dextrose) 500 mls @ 166.667 mls/hr IVPB DAILY@1400 [facility] PRN Reason: Protocol Last Admin: 03/31/17 13:17 Dose: 166.667 mls/hr Levetiracetam 250 mg/ (Levetiracetam 500 mg) 750 mg PO BID [facility] Last Admin: 03/31/17 22:25 Dose: 750 mg Loratadine (Claritin -) 10 mg PO DAILY [facility] Last Admin: 03/31/17 09:56 Dose: 10 mg Methylprednisolone Sodium Succinate (Solu-Medrol -) 40 mg IVPB BID [facility] Last Admin: 03/31/17 22:24 Dose: 40 mg Mometasone Furoate (Asmanex 220mcg -) 1 puff [facility] Last Admin: 03/31/17 22:25 Dose: 1 puff Montelukast Sodium (Singulair -) 10 mg PO HS [facility] Last Admin: 03/31/17 22:24 Dose: 10 mg Multi-Ingredient Ointment (Zinc Oxide) 1 applic TP TID [facility] Last Admin: 04/01/17 05:52 Dose: 1 applic Nitroglycerin (Nitrostat -) 0.4 mg SL Q5M PRN PRN Reason: CHEST PAIN Nystatin (Nystop Powder -) 1 applic TP BID [facility] Last Admin: 03/31/17 22:29 Dose: 1 applic Oxymetazoline HCl (Afrin -) 2 spray NS BID PRN PRN Reason: NASAL CONGESTION Tamsulosin HCl (Flomax -) 0.4 mg PO DAILY@0830 [facility] Last Admin: 03/31/17 09:56 Dose: 0.4 mg - Objective Vital Signs: Vital Signs Temperature 98 F 04/01/17 06:00 Pulse Rate 73 04/01/17 06:00 Respiratory Rate 20 04/01/17 06:00 Blood Pressure 142/56 04/01/17 06:00 O2 Sat by Pulse Oximetry (%) 94 L 03/31/17 21:00 Constitutional: Yes: No Distress Eyes: Yes: Conjunctiva Clear Cardiovascular: Yes: Regular Rate and Rhythm Respiratory: Yes: Other (scattered rhonchi) Gastrointestinal: Yes: Soft, Abdomen, Obese Edema: No (venodynes) Neurological: Yes: Alert Labs: CBC, BMP 04/01/17 06:00 04/01/17 06:00 INR, PTT INR 1.03 (0.82-1.09) 03/22/17 05:15 Laboratory Tests 04/01/17 04/01/17 06:00 06:00 WBC 7.8 Hgb 8.9 L Hct 27.2 L Plt Count 114 L Sodium 140 Potassium 4.8 Creatinine 0.8 Random Glucose 164 H D AST 15 ALT 26 Alkaline Phosphatase 56 Problem List - Problems (1) Pneumonia Code(s): J18.9 - PNEUMONIA, UNSPECIFIED ORGANISM Qualifiers: Pneumonia type: due to unspecified organism Laterality: bilateral Lung location: lower lobe of lung Qualified Code(s): J18.9 - Pneumonia, unspecified organism (2) COPD exacerbation Code(s): J44.1 - CHRONIC OBSTRUCTIVE PULMONARY DISEASE W (ACUTE) EXACERBATION (3) Respiratory distress Code(s): R06.00 - DYSPNEA, UNSPECIFIED (4) CVA (cerebral vascular accident) Code(s): I63.9 - CEREBRAL INFARCTION, UNSPECIFIED Qualifiers: CVA mechanism: unspecified Qualified Code(s): I63.9 - Cerebral infarction, unspecified (5) HTN (hypertension) Code(s): I10 - ESSENTIAL (PRIMARY) HYPERTENSION Qualifiers: Hypertension type: essential hypertension Qualified Code(s): I10 - Essential (primary) hypertension (6) Thoracic aneurysm without mention of rupture Code(s): I71.2 - THORACIC AORTIC ANEURYSM, WITHOUT RUPTURE Qualifiers: Presence of rupture: without rupture Qualified Code(s): I71.2 - Thoracic aortic aneurysm, without rupture (7) Peripheral arterial disease Code(s): I73.9 - PERIPHERAL VASCULAR DISEASE, UNSPECIFIED Assessment/Plan Assessment/Plan 89 year old man with a history of HTN, HLD, CAD, Chronic diastolic CHF, past CVA /TIA, COPD, Prostate Ca, PAD with recent admission for PNA/sepsis, COPD exacerbation now readmitted with respiratory distress, leukocytosis and CT showing bilateral MRSA PNA. SOB-AE COPD and bilateral MRSA PNA -receiving supp O2 and Abx -does not require diuresis Chest/Epigastric pain-chronic atypical chest pain -Normal LV function on echo -cardiac enzymes were wnl, ekg not significantly changed from prior ekgs, no arrhythmias when pt was on tele -ASA held due to duodenitis/GI bleed. -no bblocker given h/o sig conduction disease and COPD Carotid stenosis-with reported stents and CEA in the past -resume ASA 81mg daily if/when tolerated
--- NOTE | 2017-04-01 10:14 | PN ---
Progress Note (short form) - Note Progress Note: PULMONARY Breathing slowly improving. +mostly nonproductive cough. No fevers or chills. Last Vital Signs Temp Pulse Resp BP Pulse Ox 98 F 73 20 142/56 94 L 04/01/17 06:00 04/01/17 06:00 04/01/17 06:00 04/01/17 06:00 03/31/17 21:00 Gen: mildly tachypneic at rest Heart: RRR Lung: bilateral rhonchi Abd: soft, nontender Ext: no edema CBC, BMP 04/01/17 06:00 04/01/17 06:00 Active Medications Acetaminophen (Tylenol -) 650 mg PO Q4H PRN PRN Reason: FEVER OR PAIN Last Admin: 03/28/17 23:11 Dose: 650 mg Al Hydroxide/Mg Hydroxide (Mylanta Oral Suspension -) 30 ml PO Q6HPO [facility] Last Admin: 04/01/17 05:52 Dose: 30 ml Albuterol Sulfate (Ventolin 0.083% Nebulizer Soln -) 1 amp NEB Q4H PRN PRN Reason: SHORT OF BREATH/WHEEZING Last Admin: 03/28/17 21:00 Dose: 1 amp Albuterol/Ipratropium (Duoneb -) 1 amp NEB QIDR [facility] Last Admin: 04/01/17 06:20 Dose: 1 amp Amlodipine Besylate (Norvasc -) 10 mg PO DAILY [facility] Last Admin: 03/31/17 09:56 Dose: 10 mg Atorvastatin Calcium (Lipitor -) 10 mg PO HS [facility] Last Admin: 03/31/17 22:25 Dose: 10 mg Cholecalciferol (Vitamin D3 -) 1,000 unit PO DAILY [facility] Last Admin: 03/31/17 09:56 Dose: 1,000 unit Cholestyramine Resin (Questran Light Packet -) 4 gm PO BID [facility] Last Admin: 03/31/17 22:25 Dose: 4 gm Guaifenesin (Mucinex -) 600 mg PO BID [facility] Last Admin: 03/31/17 22:24 Dose: 600 mg Hydralazine HCl (Apresoline -) 25 mg PO BID [facility] Last Admin: 03/31/17 22:28 Dose: 25 mg Vancomycin HCl 1,500 mg/ (Dextrose) 500 mls @ 166.667 mls/hr IVPB DAILY@1400 [facility] PRN Reason: Protocol Last Admin: 03/31/17 13:17 Dose: 166.667 mls/hr Levetiracetam 250 mg/ (Levetiracetam 500 mg) 750 mg PO BID [facility] Last Admin: 03/31/17 22:25 Dose: 750 mg Loratadine (Claritin -) 10 mg PO DAILY [facility] Last Admin: 03/31/17 09:56 Dose: 10 mg Methylprednisolone Sodium Succinate (Solu-Medrol -) 40 mg IVPB BID [facility] Last Admin: 03/31/17 22:24 Dose: 40 mg Mometasone Furoate (Asmanex 220mcg -) 1 puff [facility] Last Admin: 03/31/17 22:25 Dose: 1 puff Montelukast Sodium (Singulair -) 10 mg PO [facility] Last Admin: 03/31/17 22:24 Dose: 10 mg Multi-Ingredient Ointment (Zinc Oxide) 1 applic TP TID [facility] Last Admin: 04/01/17 05:52 Dose: 1 applic Nitroglycerin (Nitrostat -) 0.4 mg SL Q5M PRN PRN Reason: CHEST PAIN Nystatin (Nystop Powder -) 1 applic TP BID [facility] Last Admin: 03/31/17 22:29 Dose: 1 applic Oxymetazoline HCl (Afrin -) 2 spray NS BID PRN PRN Reason: NASAL CONGESTION Tamsulosin HCl (Flomax -) 0.4 mg PO DAILY@0830 [facility] Last Admin: 03/31/17 09:56 Dose: 0.4 mg A/P Acute on Chronic Hypoxic Respiratory Failure improving Pneumonia COPD CAD LV Diastolic Dysfunction GI Bleed Anemia Lymphoma - antibiotics per ID - medrol taper - inhaled bronchodilators - O2 to keep SpO2 >90% - aspiration precautions - continue protonix - monitor H/H - BiPAP as needed to assist in work of breathing - DVT prophylaxis - would defer elective procedures until respiratory status improved
[2017-04-01] MEDS ORDERED: PT OWN MED DRAWER 7, Y5N ONE (10:30)
[2017-04-01] MEDS: methylPREDNISolone NA SUCC 40 MG/1 ML VIAL IVPB SCH ×2 (10:42→21:26)
[2017-04-01] MEDS: LORATADINE 10 MG TABLET PO SCH (10:43)
[2017-04-01] MEDS: TAMSULOSIN HCL 0.4 MG CAP.ER.24H (FP) PO SCH (10:43)
[2017-04-01] MEDS: CHOLECALCIFEROL (VITAMIN D3) 1,000 UNIT TABLET (FP) PO SCH (10:43)
[2017-04-01] MEDS: amLODIPine BESYLATE 10 MG TABLET (FP) PO SCH (10:43)
[2017-04-01] MEDS: guaiFENesin 600 MG TABLET.ER (FP) PO SCH ×2 (10:43→21:25)
[2017-04-01] MEDS: LEVETIRACETAM 250 MG, LEVETIRACETAM 500 MG PO SCH ×2 (10:44→21:25)
[2017-04-01] MEDS: CHOLESTYRAMINE/ASPARTAME 4 GM PACKET PO SCH ×2 (10:45→21:26)
[2017-04-01] MEDS: NYSTATIN POWDER 100,000 UNITS/GM - 15 GM TOPICAL POWDER TP SCH ×2 (10:45→21:26)
--- NOTE | 2017-04-01 10:47 | PN ---
Progress Note (short form) - Note Progress Note: No acute event overnight. Denies chest pain, palpitation. Breathing better. Afebrile. 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: CVA, Dementia, TIA Cardiovascular: Yes: CAD, HTN Pulmonary: Yes: COPD Gastrointestinal: Yes: Other (HX OF PROGRESSIVE REGURGITATION FOR YEARS, PLACED ON OMEPRAZOLE BY PMD NO WORK UP EVER DONE DESPITE SYMPTOMS) Renal/: Yes: Cancer (prostate) - Past Surgical History Past Surgical History: Yes: Carotid Endarterectomy (carotid "stent" about 2 years go), Stent (carotid; denies cardiac stent) - Advance Directives Advance Directives: Yes: Living Will, Health Care Proxy, DNR - Smoking History Smoking history: Former smoker Have you smoked in the past 12 months: No Aproximately how many cigarettes per day: 0 If you are a former smoker, when did you quit?: over 20 years go - Alcohol/Substance Use Hx Alcohol Use: No - Social History ADL: Family Assistance History of Recent Travel: No Home Medications - Allergies Allergies/Adverse Reactions: Allergies Allergy/AdvReac Type Severity Reaction Status Date / Time Anesthetics - Angle Type- Allergy Unknown Verified 03/20/17 17:27 Parabens [Anesthetics - Angle Type] latex Allergy Verified 03/20/17 17:27 - Home Medications Home Medications: Ambulatory Orders Albuterol 0.083% Nebulizer Lela [Ventolin 0.083% Nebulizer Soln -] 1 neb NEB BID 09/30/14 Aspirin/Dipyridamole [Aggrenox -] 1 combo PO BID 09/30/14 Cholecalciferol (Vitamin D3) [Vitamin D3] 1,000 unit PO DAILY 09/30/14 Cholestyramine/Sucrose [Cholestyramine Packet] 4 gm PO BID PRN 09/30/14 Fluticasone Propionate [Flovent Hfa] 110 mg IH BID 09/30/14 Levetiracetam [Keppra -] 750 mg PO BID 09/30/14 Lipase/Protease/Amylase [Pancrease EC Capsule] 4 each PO DAILY 09/30/14 Loratadine 10 mg PO DAILY 09/30/14 Montelukast Na [Singulair -] 10 mg PO HS 09/30/14 Simvastatin [Zocor] 20 mg PO HS 09/30/14 Solifenacin Succinate [Vesicare] 10 mg PO DAILY 09/30/14 Tamsulosin HCl [Flomax -] 0.4 mg PO DAILY 09/30/14 Tiotropium [place] [Spiriva] 1 inh PO DAILY 09/30/14 Lipase/Protease/Amylase [Pancrelipase 5,000 Dr Capsule -] 2 each PO BIDWM #60 cap 10/06/14 Oxymetazoline 0.05% Nasal Soln [Afrin -] 2 spray NS BID PRN #7 spraybtl Ranitidine [Zantac -] 150 mg PO BID #30 tablet 10/06/14 Tramadol HCl 50 mg PO Q6H #20 tablet MDD 200mg 01/08/17 Amlodipine Besylate [Norvasc -] 10 mg PO DAILY #30 tablet 03/19/17 Azithromycin 500 mg PO DAILY #5 tablet 03/19/17 Cefuroxime Axetil [Ceftin -] 500 mg PO BID #14 tablet 03/19/17 Hydralazine HCl 10 mg PO BID #60 tablet 03/19/17 Prednisone [Deltasone -] See Taper PO DAILY #30 tablet 03/19/17 Menthol/Zinc Oxide [Calmoseptine Ointment] 71 gm TP QID 03/20/17 Nystatin Powder [Nystop Topical Powder -] 15 gm TP BID 03/20/17 Review of Systems - Review of Systems Constitutional: reports: Lethargy, Weakness Eyes: reports: No Symptoms HENT: reports: No Symptoms Neck: reports: Stiffness Cardiovascular: reports: Shortness of Breath Respiratory: reports: Cough, SOB, Wheezing Gastrointestinal: reports: Nausea Genitourinary: reports: No Symptoms Musculoskeletal: reports: Back Pain Neurological: reports: No Symptoms Physical Examination Vital Signs: Vital Signs Period Temp Pulse Resp BP Sys/Bush Pulse Ox Last 24 Hr 97.9 F-98.9 F 68-80 20-24 127-151/47-60 94 Constitutional: Yes: Moderate Distress, Obese Eyes: Yes: Conjunctiva Clear, EOM Intact HENT: Yes: Atraumatic, Normocephalic Neck: Yes: Supple, Trachea Midline Cardiovascular: Yes: Regular Rate and Rhythm Respiratory: Yes: Diminished (air entry decreased b/l lung base) Gastrointestinal: Yes: Normal Bowel Sounds, Soft ...Rectal Exam: Yes: Deferred Musculoskeletal: Yes: Back Pain Neurological: Yes: Alert, Oriented ...Motor Strength: WNL Psychiatric: Yes: Alert Imaging - Results Chest X-ray: Report Reviewed Cat Scan: Report Reviewed Current Medications Acetaminophen (Tylenol -) 650 mg PO Q4H PRN PRN Reason: FEVER OR PAIN Last Admin: 03/25/17 07:30 Dose: 650 mg Al Hydroxide/Mg Hydroxide (Mylanta Oral Suspension -) 30 ml PO Q6HPO [facility] Last Admin: 03/27/17 07:39 Dose: Not Given Albuterol Sulfate (Ventolin 0.083% Nebulizer Soln -) 1 amp NEB Q4H PRN PRN Reason: SHORT OF BREATH/WHEEZING Albuterol/Ipratropium (Duoneb -) 1 amp NEB QIDR [facility] Last Admin: 03/27/17 06:18 Dose: 1 amp Amlodipine Besylate (Norvasc -) 10 mg PO DAILY [facility] Last Admin: 03/27/17 10:31 Dose: 10 mg Atorvastatin Calcium (Lipitor -) 10 mg PO HS [facility] Last Admin: 03/27/17 00:10 Dose: 10 mg Chlorhexidine Gluconate (Hibiclens For Decolonization -) 1 applic TP [facility] Last Admin: 03/27/17 00:11 Dose: Not Given Cholecalciferol (Vitamin D3 -) 1,000 unit PO DAILY [facility] Last Admin: 03/27/17 10:30 Dose: 1,000 unit Cholestyramine Resin (Questran Light Packet -) 4 gm PO BID [facility] Last Admin: 03/27/17 10:32 Dose: 4 gm Guaifenesin (Mucinex -) 600 mg PO BID [facility] Last Admin: 03/27/17 10:31 Dose: 600 mg Hydralazine HCl (Apresoline -) 10 mg PO BID [facility] Last Admin: 03/27/17 10:31 Dose: 10 mg Pantoprazole Sodium (Protonix 40mg Ivpb (Pre-Docked)) 100 mls @ 200 mls/hr IVPB BID [facility] Last Admin: 03/27/17 10:32 Dose: 200 mls/hr Vancomycin HCl 1,250 mg/ (Dextrose) 250 mls @ 166.667 mls/hr IVPB DAILY@1400 CAREY PRN Reason: Protocol Last Admin: 03/26/17 15:00 Dose: 166.667 mls/hr Levetiracetam 250 mg/ (Levetiracetam 500 mg) 750 mg PO BID [facility] Last Admin: 03/27/17 10:30 Dose: 750 mg Loratadine (Claritin -) 10 mg PO DAILY [facility] Last Admin: 03/27/17 10:31 Dose: 10 mg Methylprednisolone Sodium Succinate (Solu-Medrol -) 40 mg IVPB BID [facility] Last Admin: 03/27/17 10:32 Dose: 40 mg Mometasone Furoate (Asmanex 220mcg -) 1 puff IH [facility] Last Admin: 03/27/17 00:11 Dose: 1 puff Montelukast Sodium (Singulair -) 10 mg PO HS [facility] Last Admin: 03/27/17 00:10 Dose: 10 mg Multi-Ingredient Ointment (Zinc Oxide) 1 applic TP TID [facility] Last Admin: 03/27/17 00:11 Dose: 1 applic Nitroglycerin (Nitrostat -) 0.4 mg SL [id number] PRN PRN Reason: CHEST PAIN Non-Formulary Medication (Lipase/Protease/Amylase [Pancrease Ec Capsule]) 4 each PO DAILY [facility] Nystatin (Nystop Powder -) 1 applic TP BID [facility] Last Admin: 03/27/17 10:33 Dose: 1 applic Oxymetazoline HCl (Afrin -) 2 spray NS BID PRN PRN Reason: NASAL CONGESTION Last Admin: 03/21/17 11:28 Dose: 2 spray Solifenacin (Vesicare -) 10 mg PO DAILY [facility] Last Admin: 03/27/17 10:31 Dose: 10 mg Tamsulosin HCl (Flomax -) 0.4 mg PO DAILY [facility] Last Admin: 03/27/17 10:31 Dose: 0.4 mg Problem List - Problems (1) Pneumonia Assessment/Plan: Improving. MSSA Pneumonia Continue IV abx. Pulmonary and ID follow up appreciated. Code(s): J18.9 - PNEUMONIA, UNSPECIFIED ORGANISM Qualifiers: Pneumonia type: due to unspecified organism Laterality: bilateral Lung location: lower lobe of lung Qualified Code(s): J18.9 - Pneumonia, unspecified organism (2) COPD exacerbation Assessment/Plan: Improving. Continue O2 NC/Inhaled bronchodilators/Solumedrol. Management per pulmonary. Code(s): J44.1 - CHRONIC OBSTRUCTIVE PULMONARY DISEASE W (ACUTE) EXACERBATION (3) YEISON (acute kidney injury) Assessment/Plan: Improving. Renal follow up appreciated. Code(s): N17.9 - ACUTE KIDNEY FAILURE, UNSPECIFIED (4) Acute respiratory failure Code(s): J96.00 - ACUTE RESPIRATORY FAILURE, UNSP W HYPOXIA OR HYPERCAPNIA Improving. Continue current management. BiPaP as needed. (5) CHF (congestive heart failure) Assessment/Plan: Stable. Chest x ray improved. Cardiology follow up appreciated. Will continue current management. Code(s): I50.9 - HEART FAILURE, UNSPECIFIED Qualifiers: Congestive heart failure type: unspecified congestive heart failure type Congestive heart failure chronicity: unspecified congestive heart failure chronicity Qualified Code(s): I50.9 - Heart failure, unspecified (6) CVA (cerebral vascular accident) Assessment/Plan: stable. Aggrenox on hold because of GI bleed Code(s): I63.9 - CEREBRAL INFARCTION, UNSPECIFIED Qualifiers: CVA mechanism: unspecified Qualified Code(s): I63.9 - Cerebral infarction, unspecified (7) HTN (hypertension) Code(s): I10 - ESSENTIAL (PRIMARY) HYPERTENSION Qualifiers: Hypertension type: essential hypertension Qualified Code(s): I10 - Essential (primary) hypertension Reasonable control. Continue current meds. (8) Duodenitis Assessment/Plan: CT Scan shows duodenitis. Patient with nausea, abdominal discomfort. GI follow up appreciated. Code(s): K29.80 - DUODENITIS WITHOUT BLEEDING 9) GI Bleed: S/P Transfusion. H/H improving. GI follow up appreciated. Problem List - Problems (1) Pneumonia Code(s): J18.9 - PNEUMONIA, UNSPECIFIED ORGANISM Qualifiers: Pneumonia type: due to unspecified organism Laterality: bilateral Lung location: lower lobe of lung Qualified Code(s): J18.9 - Pneumonia, unspecified organism (2) COPD exacerbation Code(s): J44.1 - CHRONIC OBSTRUCTIVE PULMONARY DISEASE W (ACUTE) EXACERBATION (3) YEISON (acute kidney injury) Code(s): N17.9 - ACUTE KIDNEY FAILURE, UNSPECIFIED (4) Acute respiratory failure Code(s): J96.00 - ACUTE RESPIRATORY FAILURE, UNSP W HYPOXIA OR HYPERCAPNIA Qualifiers: Respiratory failure complication: hypoxia Qualified Code(s): J96.01 - Acute respiratory failure with hypoxia (5) CHF (congestive heart failure) Code(s): I50.9 - HEART FAILURE, UNSPECIFIED Qualifiers: Congestive heart failure type: unspecified congestive heart failure type Congestive heart failure chronicity: unspecified congestive heart failure chronicity Qualified Code(s): I50.9 - Heart failure, unspecified (6) CVA (cerebral vascular accident) Code(s): I63.9 - CEREBRAL INFARCTION, UNSPECIFIED Qualifiers: CVA mechanism: unspecified Qualified Code(s): I63.9 - Cerebral infarction, unspecified (7) HTN (hypertension) Code(s): I10 - ESSENTIAL (PRIMARY) HYPERTENSION Qualifiers: Hypertension type: essential hypertension Qualified Code(s): I10 - Essential (primary) hypertension (8) Duodenitis Code(s): K29.80 - DUODENITIS WITHOUT BLEEDING
[2017-04-01] MEDS: hydrALAZINE HCL 25 MG TABLET (FP) PO SCH ×2 (11:16→21:25)
[2017-04-01] MEDS: PANTOPRAZOLE 40 MG TABLET (FP) PO SCH (11:16)
[2017-04-01 12:11] LABS: ANISOCYTOSIS 1+; PLATELET ESTIMATE ADEQUATE (NORMAL); POLYCHROMASIA 2+; TEAR DROP CELLS 2+
--- NOTE | 2017-04-01 13:52 | PN ---
Progress Note, Physician History of Present Illness: looks better than yesterday says she feels very weak - Current Medication List Current Medications: Active Medications Acetaminophen (Tylenol -) 650 mg PO Q4H PRN PRN Reason: FEVER OR PAIN Last Admin: 03/28/17 23:11 Dose: 650 mg Al Hydroxide/Mg Hydroxide (Mylanta Oral Suspension -) 30 ml PO Q6HPO [facility] Last Admin: 04/01/17 12:25 Dose: 30 ml Albuterol Sulfate (Ventolin 0.083% Nebulizer Soln -) 1 amp NEB Q4H PRN PRN Reason: SHORT OF BREATH/WHEEZING Last Admin: 03/28/17 21:00 Dose: 1 amp Albuterol/Ipratropium (Duoneb -) 1 amp NEB QIDR [facility] Last Admin: 04/01/17 12:36 Dose: 1 amp Amlodipine Besylate (Norvasc -) 10 mg PO DAILY [facility] Last Admin: 04/01/17 10:43 Dose: 10 mg Atorvastatin Calcium (Lipitor -) 10 mg PO HS [facility] Last Admin: 03/31/17 22:25 Dose: 10 mg Cholecalciferol (Vitamin D3 -) 1,000 unit PO DAILY [facility] Last Admin: 04/01/17 10:43 Dose: 1,000 unit Cholestyramine Resin (Questran Light Packet -) 4 gm PO BID [facility] Last Admin: 04/01/17 10:45 Dose: 4 gm Guaifenesin (Mucinex -) 600 mg PO BID [facility] Last Admin: 04/01/17 10:43 Dose: 600 mg Hydralazine HCl (Apresoline -) 25 mg PO BID [facility] Last Admin: 04/01/17 11:16 Dose: 25 mg Vancomycin HCl 1,500 mg/ (Dextrose) 500 mls @ 166.667 mls/hr IVPB DAILY@1400 CAREY PRN Reason: Protocol Last Admin: 03/31/17 13:17 Dose: 166.667 mls/hr Levetiracetam 250 mg/ (Levetiracetam 500 mg) 750 mg PO BID [facility] Last Admin: 04/01/17 10:44 Dose: 750 mg Loratadine (Claritin -) 10 mg PO DAILY [facility] Last Admin: 04/01/17 10:43 Dose: 10 mg Methylprednisolone Sodium Succinate (Solu-Medrol -) 40 mg IVPB BID [facility] Last Admin: 04/01/17 10:42 Dose: 40 mg Mometasone Furoate (Asmanex 220mcg -) 1 puff IH [facility] Last Admin: 03/31/17 22:25 Dose: 1 puff Montelukast Sodium (Singulair -) 10 mg PO HS [facility] Last Admin: 03/31/17 22:24 Dose: 10 mg Multi-Ingredient Ointment (Zinc Oxide) 1 applic TP TID [facility] Last Admin: 04/01/17 05:52 Dose: 1 applic Nitroglycerin (Nitrostat -) 0.4 mg SL Q5M PRN PRN Reason: CHEST PAIN Nystatin (Nystop Powder -) 1 applic TP BID [facility] Last Admin: 04/01/17 10:45 Dose: 1 applic Oxymetazoline HCl (Afrin -) 2 spray NS BID PRN PRN Reason: NASAL CONGESTION Pantoprazole Sodium (Protonix -) 40 mg PO DAILY [facility] Last Admin: 04/01/17 11:16 Dose: 40 mg Tamsulosin HCl (Flomax -) 0.4 mg PO DAILY@0830 [facility] Last Admin: 04/01/17 10:43 Dose: 0.4 mg - Objective Vital Signs: Vital Signs Temperature 98 F 04/01/17 06:00 Pulse Rate 73 04/01/17 06:00 Respiratory Rate 20 04/01/17 06:00 Blood Pressure 142/56 04/01/17 06:00 O2 Sat by Pulse Oximetry (%) 94 L 03/31/17 21:00 Constitutional: Yes: Calm, Mild Distress Cardiovascular: Yes: Regular Rate and Rhythm Respiratory: Yes: On Nasal O2, Poor Air Entry, Rhonchi Gastrointestinal: Yes: Normal Bowel Sounds, Soft Musculoskeletal: Yes: Other Edema: LUE: 1+, RUE: 1+ Neurological: Yes: Alert, Oriented Psychiatric: Yes: Alert, Oriented Labs: CBC, BMP 04/01/17 06:00 04/01/17 06:00 INR, PTT INR 1.03 (0.82-1.09) 03/22/17 05:15 Assessment/Plan Problem List - Problems (1) Pneumonia Code(s): J18.9 - PNEUMONIA, UNSPECIFIED ORGANISM Qualifiers: Pneumonia type: due to unspecified organism Laterality: bilateral Lung location: lower lobe of lung Qualified Code(s): J18.9 - Pneumonia, unspecified organism (2) COPD exacerbation Code(s): J44.1 - CHRONIC OBSTRUCTIVE PULMONARY DISEASE W (ACUTE) EXACERBATION (3) YEISON (acute kidney injury) Code(s): N17.9 - ACUTE KIDNEY FAILURE, UNSPECIFIED (4) Acute respiratory failure Code(s): J96.00 - ACUTE RESPIRATORY FAILURE, UNSP W HYPOXIA OR HYPERCAPNIA (5) CHF (congestive heart failure) Code(s): I50.9 - HEART FAILURE, UNSPECIFIED Qualifiers: Congestive heart failure type: unspecified congestive heart failure type Congestive heart failure chronicity: unspecified congestive heart failure chronicity Qualified Code(s): I50.9 - Heart failure, unspecified (6) CVA (cerebral vascular accident) Code(s): I63.9 - CEREBRAL INFARCTION, UNSPECIFIED Qualifiers: CVA mechanism: unspecified Qualified Code(s): I63.9 - Cerebral infarction, unspecified (7) HTN (hypertension) Code(s): I10 - ESSENTIAL (PRIMARY) HYPERTENSION Qualifiers: Hypertension type: essential hypertension Qualified Code(s): I10 - Essential (primary) hypertension (8) Duodenitis Code(s): K29.80 - DUODENITIS WITHOUT BLEEDING 9 mrsa pneumonia plan mrsa pneumonia continue abx continue current mgmt physio will check vanco trough on
[2017-04-01] MEDS: VANCOMYCIN 1,500 MG in DEXTROSE 5%-WATER - 500 ML IVPB SCH (14:45)
[2017-04-01] MEDS: ACETAMINOPHEN 325 MG TABLET (FP) PO PRN (18:14)
[2017-04-01] MEDS: ATORVASTATIN CA 10 MG TABLET (FP) PO SCH (21:24)
[2017-04-01] MEDS: MOMETASONE FUROATE 220 MCG/IH INHALER IH SCH (21:24)
[2017-04-01] MEDS: MONTELUKAST NA 10 MG TABLET PO SCH (21:25)
[2017-04-02] MEDS: ALBUTEROL SO4 2.5/IPRATROPIUM 0.5 INH SOL 3 ML VIAL.NEB. NEB SCH ×4 (00:13→18:30)
[2017-04-02] MEDS: MAG HYDROX/AL HYDROX/SIMETH 30 ML UNIT-DOSE CUP PO SCH ×4 (02:25→18:10)
[2017-04-02] MEDS: ZINC OXIDE 20% TOPICAL OINTMENT 30 GM TUBE TP SCH ×3 (05:49→22:29)
[2017-04-02 08:20] LABS: MCH 30.2 pg (25.7-33.7); MCHC 32.4 g/dl (32.0-35.9); MEAN CELL VOLUME 93.1 fl (80-96); MEAN PLT VOLUME 7.8 fl (7.5-11.1); PLATELET COUNT 122 K/MM3 (134-434); RDW 17.3 % (11.9-15.9)
[2017-04-02 08:27] LABS: ALBUMIN 2.4 g/dl (3.4-5.0); ANION GAP 8 (8-16); CO2 29 mmol/L (21-32); GLUCOSE,RANDOM 143 mg/dL (74-106); SGOT/AST 17 U/L (15-37); SGPT/ALT 30 U/L (12-78)
[2017-04-02 08:30] LABS: ALK PHOS 59 U/L (45-117); BILIRUBIN,TOTAL 0.4 mg/dL (0.2-1.0); CALCIUM 8.2 mg/dL (8.5-10.1); CREATININE 0.8 mg/dL (0.7-1.3); TOT PROT 4.9 g/dl (6.4-8.2)
--- NOTE | 2017-04-02 09:02 | PN ---
Progress Note (short form) - Note Progress Note: Patient seen and examined. Much more awake, alert as compared to yesterday. Interactive in communication. C/O Generalized weakness. Afebrile. Denies chest pain, shortness of breath, palpitation or dizziness. History Source: Patient, Medical Record Limitations to Obtaining History: Clinical Condition - Past Medical History CRANE LADLE PERSON: Yes: CVA, Dementia, TIA Cardiovascular: Yes: CAD, HTN Pulmonary: Yes: COPD Gastrointestinal: Yes: Other (HX OF PROGRESSIVE REGURGITATION FOR YEARS, PLACED ON OMEPRAZOLE BY PMD NO WORK UP EVER DONE DESPITE SYMPTOMS) Renal/: Yes: Cancer (prostate) - Past Surgical History Past Surgical History: Yes: Carotid Endarterectomy (carotid "stent" about 2 years go), Stent (carotid; denies cardiac stent) - Advance Directives Advance Directives: Yes: Living Will, Health Care Proxy, DNR - Smoking History Smoking history: Former smoker Have you smoked in the past 12 months: No Aproximately how many cigarettes per day: 0 If you are a former smoker, when did you quit?: over 20 years go - Alcohol/Substance Use Hx Alcohol Use: No - Social History ADL: Family Assistance History of Recent Travel: No Home Medications - Allergies Allergies/Adverse Reactions: Allergies Allergy/AdvReac Type Severity Reaction Status Date / Time Anesthetics - Angle Type- Allergy Unknown Verified 03/20/17 17:27 Parabens [Anesthetics - Angle Type] latex Allergy Verified 03/20/17 17:27 - Home Medications Home Medications: Ambulatory Orders Albuterol 0.083% Nebulizer Lela [Ventolin 0.083% Nebulizer Soln -] 1 neb NEB BID 09/30/14 Aspirin/Dipyridamole [Aggrenox -] 1 combo PO BID 09/30/14 Cholecalciferol (Vitamin D3) [Vitamin D3] 1,000 unit PO DAILY 09/30/14 Cholestyramine/Sucrose [Cholestyramine Packet] 4 gm PO BID PRN 09/30/14 Fluticasone Propionate [Flovent Hfa] 110 mg IH BID 09/30/14 Levetiracetam [Keppra -] 750 mg PO BID 09/30/14 Lipase/Protease/Amylase [Pancrease EC Capsule] 4 each PO DAILY 09/30/14 Loratadine 10 mg PO DAILY 09/30/14 Montelukast Na [Singulair -] 10 mg PO HS 09/30/14 Simvastatin [Zocor] 20 mg PO HS 09/30/14 Solifenacin Succinate [Vesicare] 10 mg PO DAILY 09/30/14 Tamsulosin HCl [Flomax -] 0.4 mg PO DAILY 09/30/14 Tiotropium [place] [Spiriva] 1 inh PO DAILY 09/30/14 Lipase/Protease/Amylase [Pancrelipase 5,000 Dr Capsule -] 2 each PO BIDWM #60 cap 10/06/14 Oxymetazoline 0.05% Nasal Soln [Afrin -] 2 spray NS BID PRN #7 spraybtl Ranitidine [Zantac -] 150 mg PO BID #30 tablet 10/06/14 Tramadol HCl 50 mg PO Q6H #20 tablet MDD 200mg 01/08/17 Amlodipine Besylate [Norvasc -] 10 mg PO DAILY #30 tablet 03/19/17 Azithromycin 500 mg PO DAILY #5 tablet 03/19/17 Cefuroxime Axetil [Ceftin -] 500 mg PO BID #14 tablet 03/19/17 Hydralazine HCl 10 mg PO BID #60 tablet 03/19/17 Prednisone [Deltasone -] See Taper PO DAILY #30 tablet 03/19/17 Menthol/Zinc Oxide [Calmoseptine Ointment] 71 gm TP QID 03/20/17 Nystatin Powder [Nystop Topical Powder -] 15 gm TP BID 03/20/17 Review of Systems - Review of Systems Constitutional: reports: Lethargy, Weakness Eyes: reports: No Symptoms HENT: reports: No Symptoms Neck: reports: Stiffness Cardiovascular: reports: Shortness of Breath Respiratory: reports: Cough, SOB, Wheezing Gastrointestinal: reports: Nausea Genitourinary: reports: No Symptoms Musculoskeletal: reports: Back Pain Neurological: reports: No Symptoms Physical Examination Vital Signs: Vital Signs Period Temp Pulse Resp BP Sys/Bush Pulse Ox Last 24 Hr 98 F-98.5 F 66-74 16-20 123-149/45-73 94-94 Constitutional: Yes: Moderate Distress, Obese Eyes: Yes: Conjunctiva Clear, EOM Intact HENT: Yes: Atraumatic, Normocephalic Neck: Yes: Supple, Trachea Midline Cardiovascular: Yes: Regular Rate and Rhythm Respiratory: Yes: Diminished (air entry decreased b/l lung base) Gastrointestinal: Yes: Normal Bowel Sounds, Soft ...Rectal Exam: Yes: Deferred Musculoskeletal: Yes: Back Pain Neurological: Yes: Alert, Oriented ...Motor Strength: WNL Psychiatric: Yes: Alert Imaging - Results Chest X-ray: Report Reviewed Cat Scan: Report Reviewed Current Medications Acetaminophen (Tylenol -) 650 mg PO Q4H PRN PRN Reason: FEVER OR PAIN Last Admin: 04/01/17 18:14 Dose: 650 mg Al Hydroxide/Mg Hydroxide (Mylanta Oral Suspension -) 30 ml PO Q6HPO [facility] Last Admin: 04/02/17 05:47 Dose: 30 ml Albuterol Sulfate (Ventolin 0.083% Nebulizer Soln -) 1 amp NEB Q4H PRN PRN Reason: SHORT OF BREATH/WHEEZING Last Admin: 03/28/17 21:00 Dose: 1 amp Albuterol/Ipratropium (Duoneb -) 1 amp NEB QIDR [facility] Last Admin: 04/02/17 07:25 Dose: 1 amp Amlodipine Besylate (Norvasc -) 10 mg PO DAILY [facility] Last Admin: 04/01/17 10:43 Dose: 10 mg Atorvastatin Calcium (Lipitor -) 10 mg PO HS [facility] Last Admin: 04/01/17 21:24 Dose: 10 mg Cholecalciferol (Vitamin D3 -) 1,000 unit PO DAILY [facility] Last Admin: 04/01/17 10:43 Dose: 1,000 unit Cholestyramine Resin (Questran Light Packet -) 4 gm PO BID [facility] Last Admin: 04/01/17 21:26 Dose: 4 gm Guaifenesin (Mucinex -) 600 mg PO BID [facility] Last Admin: 04/01/17 21:25 Dose: 600 mg Hydralazine HCl (Apresoline -) 25 mg PO BID [facility] Last Admin: 04/01/17 21:25 Dose: 25 mg Vancomycin HCl 1,500 mg/ (Dextrose) 500 mls @ 166.667 mls/hr IVPB DAILY@1400 CAREY PRN Reason: Protocol Last Admin: 04/01/17 14:45 Dose: 166.667 mls/hr Levetiracetam 250 mg/ (Levetiracetam 500 mg) 750 mg PO BID [facility] Last Admin: 04/01/17 21:25 Dose: 750 mg Loratadine (Claritin -) 10 mg PO DAILY [facility] Last Admin: 04/01/17 10:43 Dose: 10 mg Methylprednisolone Sodium Succinate (Solu-Medrol -) 40 mg IVPB BID [facility] Last Admin: 04/01/17 21:26 Dose: 40 mg Mometasone Furoate (Asmanex 220mcg -) 1 puff IH [facility] Last Admin: 04/01/17 21:24 Dose: 1 puff Montelukast Sodium (Singulair -) 10 mg PO HS [facility] Last Admin: 04/01/17 21:25 Dose: 10 mg Multi-Ingredient Ointment (Zinc Oxide) 1 applic TP TID [facility] Last Admin: 04/02/17 05:49 Dose: 1 applic Nitroglycerin (Nitrostat -) 0.4 mg SL Q5M PRN PRN Reason: CHEST PAIN Nystatin (Nystop Powder -) 1 applic TP BID [facility] Last Admin: 04/01/17 21:26 Dose: 1 applic Oxymetazoline HCl (Afrin -) 2 spray NS BID PRN PRN Reason: NASAL CONGESTION Pantoprazole Sodium (Protonix -) 40 mg PO DAILY [facility] Last Admin: 04/01/17 11:16 Dose: 40 mg Tamsulosin HCl (Flomax -) 0.4 mg PO DAILY@0830 [facility] Last Admin: 04/01/17 10:43 Dose: 0.4 mg CBC, BMP 04/02/17 06:10 04/02/17 06:10 Problem List - Problems (1) Pneumonia Assessment/Plan: Improving. MSSA Pneumonia IV abx as per ID Pulmonary and ID follow up appreciated. Code(s): J18.9 - PNEUMONIA, UNSPECIFIED ORGANISM Qualifiers: Pneumonia type: due to unspecified organism Laterality: bilateral Lung location: lower lobe of lung Qualified Code(s): J18.9 - Pneumonia, unspecified organism (2) COPD exacerbation Assessment/Plan: Improving. Continue O2 NC/Inhaled bronchodilators/Solumedrol. Management per pulmonary. Code(s): J44.1 - CHRONIC OBSTRUCTIVE PULMONARY DISEASE W (ACUTE) EXACERBATION (3) YEISON (acute kidney injury) Assessment/Plan: Improving. Renal follow up appreciated. Code(s): N17.9 - ACUTE KIDNEY FAILURE, UNSPECIFIED (4) Acute respiratory failure Code(s): J96.00 - ACUTE RESPIRATORY FAILURE, UNSP W HYPOXIA OR HYPERCAPNIA Improving. Continue current management. BiPaP as needed. (5) CHF (congestive heart failure) Assessment/Plan: Stable. Chest x ray improved. Cardiology follow up appreciated. Will continue current management. Code(s): I50.9 - HEART FAILURE, UNSPECIFIED Qualifiers: Congestive heart failure type: unspecified congestive heart failure type Congestive heart failure chronicity: unspecified congestive heart failure chronicity Qualified Code(s): I50.9 - Heart failure, unspecified (6) CVA (cerebral vascular accident) Assessment/Plan: stable. Aggrenox on hold because of GI bleed Code(s): I63.9 - CEREBRAL INFARCTION, UNSPECIFIED Qualifiers: CVA mechanism: unspecified Qualified Code(s): I63.9 - Cerebral infarction, unspecified (7) HTN (hypertension) Code(s): I10 - ESSENTIAL (PRIMARY) HYPERTENSION Qualifiers: Hypertension type: essential hypertension Qualified Code(s): I10 - Essential (primary) hypertension Reasonable control. Continue current meds. (8) Duodenitis Assessment/Plan: CT Scan shows duodenitis. Patient with nausea, abdominal discomfort. GI follow up appreciated. Code(s): K29.80 - DUODENITIS WITHOUT BLEEDING 9) GI Bleed: S/P Transfusion. H/H improving. GI follow up appreciated. Patient continues to improve. Anticipate discharge in next 24-48 hrs once cleared by pulmonary and ID. Problem List - Problems (1) Pneumonia Code(s): J18.9 - PNEUMONIA, UNSPECIFIED ORGANISM Qualifiers: Pneumonia type: due to unspecified organism Laterality: bilateral Lung location: lower lobe of lung Qualified Code(s): J18.9 - Pneumonia, unspecified organism (2) COPD exacerbation Code(s): J44.1 - CHRONIC OBSTRUCTIVE PULMONARY DISEASE W (ACUTE) EXACERBATION (3) YEISON (acute kidney injury) Code(s): N17.9 - ACUTE KIDNEY FAILURE, UNSPECIFIED (4) Acute respiratory failure Code(s): J96.00 - ACUTE RESPIRATORY FAILURE, UNSP W HYPOXIA OR HYPERCAPNIA Qualifiers: Respiratory failure complication: hypoxia Qualified Code(s): J96.01 - Acute respiratory failure with hypoxia (5) CHF (congestive heart failure) Code(s): I50.9 - HEART FAILURE, UNSPECIFIED Qualifiers: Congestive heart failure type: unspecified congestive heart failure type Congestive heart failure chronicity: unspecified congestive heart failure chronicity Qualified Code(s): I50.9 - Heart failure, unspecified (6) CVA (cerebral vascular accident) Code(s): I63.9 - CEREBRAL INFARCTION, UNSPECIFIED Qualifiers: CVA mechanism: unspecified Qualified Code(s): I63.9 - Cerebral infarction, unspecified (7) HTN (hypertension) Code(s): I10 - ESSENTIAL (PRIMARY) HYPERTENSION Qualifiers: Hypertension type: essential hypertension Qualified Code(s): I10 - Essential (primary) hypertension (8) Duodenitis Code(s): K29.80 - DUODENITIS WITHOUT BLEEDING
[2017-04-02] MEDS: LORATADINE 10 MG TABLET PO SCH (09:20)
[2017-04-02] MEDS: TAMSULOSIN HCL 0.4 MG CAP.ER.24H (FP) PO SCH (09:20)
[2017-04-02] MEDS: methylPREDNISolone NA SUCC 40 MG/1 ML VIAL IVPB SCH ×2 (09:20→22:27)
[2017-04-02] MEDS: hydrALAZINE HCL 25 MG TABLET (FP) PO SCH ×2 (09:20→22:28)
[2017-04-02] MEDS: PANTOPRAZOLE 40 MG TABLET (FP) PO SCH (09:20)
[2017-04-02] MEDS: guaiFENesin 600 MG TABLET.ER (FP) PO SCH ×2 (09:20→22:28)
[2017-04-02] MEDS: ACETAMINOPHEN 325 MG TABLET (FP) PO PRN (09:21)
[2017-04-02] MEDS: CHOLECALCIFEROL (VITAMIN D3) 1,000 UNIT TABLET (FP) PO SCH (09:22)
[2017-04-02] MEDS: amLODIPine BESYLATE 10 MG TABLET (FP) PO SCH (09:22)
[2017-04-02] MEDS ORDERED: PT OWN MED DRAWER 7, Y5N ONE ×2 (09:25→22:39)
[2017-04-02] MEDS: CHOLESTYRAMINE/ASPARTAME 4 GM PACKET PO SCH ×2 (09:26→22:56)
[2017-04-02] MEDS: LEVETIRACETAM 250 MG, LEVETIRACETAM 500 MG PO SCH ×2 (09:26→22:56)
--- NOTE | 2017-04-02 09:31 | PN ---
Progress Note, Physician Chief Complaint: appears comfortable Still having occasional epigastric and substernal CP, primarily after eating. No SOB. Denies nausea or diaphoresis. - Current Medication List Current Medications: Active Medications Acetaminophen (Tylenol -) 650 mg PO Q4H PRN PRN Reason: FEVER OR PAIN Last Admin: 04/02/17 09:21 Dose: 650 mg Al Hydroxide/Mg Hydroxide (Mylanta Oral Suspension -) 30 ml PO Q6HPO [facility] Last Admin: 04/02/17 05:47 Dose: 30 ml Albuterol Sulfate (Ventolin 0.083% Nebulizer Soln -) 1 amp NEB Q4H PRN PRN Reason: SHORT OF BREATH/WHEEZING Last Admin: 03/28/17 21:00 Dose: 1 amp Albuterol/Ipratropium (Duoneb -) 1 amp NEB QIDR [facility] Last Admin: 04/02/17 07:25 Dose: 1 amp Amlodipine Besylate (Norvasc -) 10 mg PO DAILY [facility] Last Admin: 04/02/17 09:22 Dose: 10 mg Atorvastatin Calcium (Lipitor -) 10 mg PO HS [facility] Last Admin: 04/01/17 21:24 Dose: 10 mg Cholecalciferol (Vitamin D3 -) 1,000 unit PO DAILY [facility] Last Admin: 04/02/17 09:22 Dose: 1,000 unit Cholestyramine Resin (Questran Light Packet -) 4 gm PO BID [facility] Last Admin: 04/02/17 09:26 Dose: 4 gm Guaifenesin (Mucinex -) 600 mg PO BID [facility] Last Admin: 04/02/17 09:20 Dose: 600 mg Hydralazine HCl (Apresoline -) 25 mg PO BID [facility] Last Admin: 04/02/17 09:20 Dose: 25 mg Vancomycin HCl 1,500 mg/ (Dextrose) 500 mls @ 166.667 mls/hr IVPB DAILY@1400 CAREY PRN Reason: Protocol Last Admin: 04/01/17 14:45 Dose: 166.667 mls/hr Levetiracetam 250 mg/ (Levetiracetam 500 mg) 750 mg PO BID [facility] Last Admin: 04/02/17 09:26 Dose: 750 mg Loratadine (Claritin -) 10 mg PO DAILY [facility] Last Admin: 04/02/17 09:20 Dose: 10 mg Methylprednisolone Sodium Succinate (Solu-Medrol -) 40 mg IVPB BID [facility] Last Admin: 04/02/17 09:20 Dose: 40 mg Mometasone Furoate (Asmanex 220mcg -) 1 puff IH [facility] Last Admin: 04/01/17 21:24 Dose: 1 puff Montelukast Sodium (Singulair -) 10 mg PO HS [facility] Last Admin: 04/01/17 21:25 Dose: 10 mg Multi-Ingredient Ointment (Zinc Oxide) 1 applic TP TID [facility] Last Admin: 04/02/17 05:49 Dose: 1 applic Nitroglycerin (Nitrostat -) 0.4 mg SL Q5M PRN PRN Reason: CHEST PAIN Nystatin (Nystop Powder -) 1 applic TP BID [facility] Last Admin: 04/01/17 21:26 Dose: 1 applic Oxymetazoline HCl (Afrin -) 2 spray NS BID PRN PRN Reason: NASAL CONGESTION Pantoprazole Sodium (Protonix -) 40 mg PO DAILY [facility] Last Admin: 04/02/17 09:20 Dose: 40 mg Tamsulosin HCl (Flomax -) 0.4 mg PO DAILY@0830 [facility] Last Admin: 04/02/17 09:20 Dose: 0.4 mg - Objective Vital Signs: Vital Signs Temperature 98.5 F 04/02/17 06:00 Pulse Rate 71 04/02/17 06:00 Respiratory Rate 20 04/02/17 06:00 Blood Pressure 149/73 04/02/17 06:00 O2 Sat by Pulse Oximetry (%) 94 L 04/01/17 21:00 Constitutional: Yes: No Distress Eyes: Yes: Conjunctiva Clear Cardiovascular: Yes: Regular Rate and Rhythm Respiratory: Yes: Other (scattered rhonchi) Gastrointestinal: Yes: Soft (non-tender) Neurological: Yes: Alert Labs: CBC, BMP 04/02/17 06:10 04/02/17 06:10 INR, PTT INR 1.03 (0.82-1.09) 03/22/17 05:15 Laboratory Tests 04/02/17 04/02/17 06:10 06:10 WBC 11.0 H D Hgb 9.1 L Plt Count 122 L Sodium 137 Potassium 4.6 Creatinine 0.8 Problem List - Problems (1) Pneumonia Code(s): J18.9 - PNEUMONIA, UNSPECIFIED ORGANISM Qualifiers: Pneumonia type: due to unspecified organism Laterality: bilateral Lung location: lower lobe of lung Qualified Code(s): J18.9 - Pneumonia, unspecified organism (2) COPD exacerbation Code(s): J44.1 - CHRONIC OBSTRUCTIVE PULMONARY DISEASE W (ACUTE) EXACERBATION (3) Respiratory distress Code(s): R06.00 - DYSPNEA, UNSPECIFIED (4) CVA (cerebral vascular accident) Code(s): I63.9 - CEREBRAL INFARCTION, UNSPECIFIED Qualifiers: CVA mechanism: unspecified Qualified Code(s): I63.9 - Cerebral infarction, unspecified (5) HTN (hypertension) Code(s): I10 - ESSENTIAL (PRIMARY) HYPERTENSION Qualifiers: Hypertension type: essential hypertension Qualified Code(s): I10 - Essential (primary) hypertension (6) Thoracic aneurysm without mention of rupture Code(s): I71.2 - THORACIC AORTIC ANEURYSM, WITHOUT RUPTURE Qualifiers: Presence of rupture: without rupture Qualified Code(s): I71.2 - Thoracic aortic aneurysm, without rupture (7) Peripheral arterial disease Code(s): I73.9 - PERIPHERAL VASCULAR DISEASE, UNSPECIFIED Assessment/Plan Assessment/Plan 89 year old man with a history of HTN, HLD, CAD, Chronic diastolic CHF, past CVA /TIA, COPD, Prostate Ca, PAD with recent admission for PNA/sepsis, COPD exacerbation now readmitted with respiratory distress, leukocytosis and CT showing bilateral MRSA PNA. SOB-AE COPD and bilateral MRSA PNA -receiving supp O2 and Abx Chest/Epigastric pain-chronic atypical chest pain -Normal LV function on echo -cardiac enzymes were wnl, ekg not significantly changed from prior ekgs, no arrhythmias when pt was on tele -ASA held due to duodenitis/GI bleed. -no bblocker given h/o sig conduction disease and COPD -Will give trial of Imdur for several days, and assess symptom response
[2017-04-02 10:50] LABS: ANISOCYTOSIS 2+; HYPOCHROMIA 1+; POLYCHROMASIA OCC
--- NOTE | 2017-04-02 11:46 | PN ---
Progress Note (short form) - Note Progress Note: PULMONARY VSS/AWAKE/ALERT ANICTERIC/PALE DIMINISHED BREATH SOUNDS B/L ANTERIOR S1S2 OBESE SOFT NONTENDER SCD'S B/L LABS/MEDS/NOTES/IMAGING REVIEWED Acute on Chronic Hypoxic Respiratory Failure improving Pneumonia COPD CAD LV Diastolic Dysfunction GI Bleed Anemia Lymphoma - antibiotics per ID - medrol taper - inhaled bronchodilators - O2 to keep SpO2 >90% - aspiration precautions - continue protonix - monitor H/H - BiPAP as needed to assist in work of breathing - DVT prophylaxis - would defer elective procedures until respiratory status improved Elizabeth PELLETIER MD
[2017-04-02] MEDS: ISOSORBIDE MONONITRATE 30 MG TAB.SR.24H (FP) PO SCH (13:03)
--- NOTE | 2017-04-02 15:57 | PN ---
Progress Note, Physician History of Present Illness: patient improving no new issues - Current Medication List Current Medications: Active Medications Acetaminophen (Tylenol -) 650 mg PO Q4H PRN PRN Reason: FEVER OR PAIN Last Admin: 04/02/17 09:21 Dose: 650 mg Al Hydroxide/Mg Hydroxide (Mylanta Oral Suspension -) 30 ml PO Q6HPO [facility] Last Admin: 04/02/17 05:47 Dose: 30 ml Albuterol Sulfate (Ventolin 0.083% Nebulizer Soln -) 1 amp NEB Q4H PRN PRN Reason: SHORT OF BREATH/WHEEZING Last Admin: 03/28/17 21:00 Dose: 1 amp Albuterol/Ipratropium (Duoneb -) 1 amp NEB QIDR [facility] Last Admin: 04/02/17 11:27 Dose: 1 amp Amlodipine Besylate (Norvasc -) 10 mg PO DAILY [facility] Last Admin: 04/02/17 09:22 Dose: 10 mg Atorvastatin Calcium (Lipitor -) 10 mg PO HS [facility] Last Admin: 04/01/17 21:24 Dose: 10 mg Cholecalciferol (Vitamin D3 -) 1,000 unit PO DAILY [facility] Last Admin: 04/02/17 09:22 Dose: 1,000 unit Cholestyramine Resin (Questran Light Packet -) 4 gm PO BID [facility] Last Admin: 04/02/17 09:26 Dose: 4 gm Guaifenesin (Mucinex -) 600 mg PO BID [facility] Last Admin: 04/02/17 09:20 Dose: 600 mg Hydralazine HCl (Apresoline -) 25 mg PO BID [facility] Last Admin: 04/02/17 09:20 Dose: 25 mg Vancomycin HCl 1,500 mg/ (Dextrose) 500 mls @ 166.667 mls/hr IVPB DAILY@1400 [facility]ARYE PRN Reason: Protocol Last Admin: 04/01/17 14:45 Dose: 166.667 mls/hr Isosorbide Mononitrate (Imdur -) 30 mg PO DAILY [facility] Levetiracetam 250 mg/ (Levetiracetam 500 mg) 750 mg PO BID [facility] Last Admin: 04/02/17 09:26 Dose: 750 mg Loratadine (Claritin -) 10 mg PO DAILY [facility] Last Admin: 04/02/17 09:20 Dose: 10 mg Methylprednisolone Sodium Succinate (Solu-Medrol -) 40 mg IVPB BID [facility] Last Admin: 04/02/17 09:20 Dose: 40 mg Mometasone Furoate (Asmanex 220mcg -) [address] puff [address] [facility] Last Admin: 04/01/17 21:24 Dose: 1 puff Montelukast Sodium (Singulair -) 10 mg PO HS [facility] Last Admin: 04/01/17 21:25 Dose: 10 mg Multi-Ingredient Ointment (Zinc Oxide) 1 applic TP TID [facility] Last Admin: 04/02/17 05:49 Dose: 1 applic Nitroglycerin (Nitrostat -) 0.4 mg SL Q5M PRN PRN Reason: CHEST PAIN Nystatin (Nystop Powder -) 1 applic TP BID [facility] Last Admin: 04/01/17 21:26 Dose: 1 applic Oxymetazoline HCl (Afrin -) 2 spray NS BID PRN PRN Reason: NASAL CONGESTION Pantoprazole Sodium (Protonix -) 40 mg PO DAILY [facility] Last Admin: 04/02/17 09:20 Dose: 40 mg Tamsulosin HCl (Flomax -) 0.4 mg PO DAILY@0830 [facility] Last Admin: 04/02/17 09:20 Dose: 0.4 mg - Objective Vital Signs: Vital Signs Temperature 98.6 F 04/02/17 14:54 Pulse Rate 72 04/02/17 14:54 Respiratory Rate 18 04/02/17 14:54 Blood Pressure 144/55 04/02/17 14:54 O2 Sat by Pulse Oximetry (%) 97 04/02/17 11:26 Constitutional: Yes: No Distress, Calm Cardiovascular: Yes: S1, S2 Respiratory: Yes: Regular, Poor Air Entry, Rhonchi Gastrointestinal: Yes: Normal Bowel Sounds, Soft Musculoskeletal: Yes: Other Extremities: Yes: Other Edema: LLE: Trace, RLE: Trace Neurological: Yes: Alert, Oriented Psychiatric: Yes: Alert, Oriented Labs: CBC, BMP 04/02/17 06:10 04/02/17 06:10 INR, PTT INR 1.03 (0.82-1.09) 03/22/17 05:15 Assessment/Plan Problem List - Problems (1) Pneumonia Code(s): J18.9 - PNEUMONIA, UNSPECIFIED ORGANISM Qualifiers: Pneumonia type: due to unspecified organism Laterality: bilateral Lung location: lower lobe of lung Qualified Code(s): J18.9 - Pneumonia, unspecified organism (2) COPD exacerbation Code(s): J44.1 - CHRONIC OBSTRUCTIVE PULMONARY DISEASE W (ACUTE) EXACERBATION (3) YEISON (acute kidney injury) Code(s): N17.9 - ACUTE KIDNEY FAILURE, UNSPECIFIED (4) Acute respiratory failure Code(s): J96.00 - ACUTE RESPIRATORY FAILURE, UNSP W HYPOXIA OR HYPERCAPNIA (5) CHF (congestive heart failure) Code(s): I50.9 - HEART FAILURE, UNSPECIFIED Qualifiers: Congestive heart failure type: unspecified congestive heart failure type Congestive heart failure chronicity: unspecified congestive heart failure chronicity Qualified Code(s): I50.9 - Heart failure, unspecified (6) CVA (cerebral vascular accident) Code(s): I63.9 - CEREBRAL INFARCTION, UNSPECIFIED Qualifiers: CVA mechanism: unspecified Qualified Code(s): I63.9 - Cerebral infarction, unspecified (7) HTN (hypertension) Code(s): I10 - ESSENTIAL (PRIMARY) HYPERTENSION Qualifiers: Hypertension type: essential hypertension Qualified Code(s): I10 - Essential (primary) hypertension (8) Duodenitis Code(s): K29.80 - DUODENITIS WITHOUT BLEEDING 9 mrsa pneumonia plan mrsa pneumonia continue abx patient to continue abx for a total of 14 days rest as per primary will check vanco trough tomorrow
[2017-04-02] MEDS: VANCOMYCIN 1,500 MG in DEXTROSE 5%-WATER - 500 ML IVPB SCH (16:00)
[2017-04-02] MEDS: NYSTATIN POWDER 100,000 UNITS/GM - 15 GM TOPICAL POWDER TP SCH ×2 (16:01→22:29)
[2017-04-02] MEDS: MONTELUKAST NA 10 MG TABLET PO SCH (22:28)
[2017-04-02] MEDS: ATORVASTATIN CA 10 MG TABLET (FP) PO SCH (22:28)
[2017-04-02] MEDS: MOMETASONE FUROATE 220 MCG/IH INHALER IH SCH (22:29)
[2017-04-03] MEDS: ALBUTEROL SO4 2.5/IPRATROPIUM 0.5 INH SOL 3 ML VIAL.NEB. NEB SCH (00:14)
[2017-04-03] MEDS: MAG HYDROX/AL HYDROX/SIMETH 30 ML UNIT-DOSE CUP PO SCH ×5 (03:54→23:43)
[2017-04-03] MEDS: ZINC OXIDE 20% TOPICAL OINTMENT 30 GM TUBE TP SCH ×3 (05:51→21:41)
[2017-04-03 07:50] LABS: ALBUMIN 2.3 g/dl (3.4-5.0); ANION GAP 9 (8-16); CO2 30 mmol/L (21-32); GLUCOSE,RANDOM 141 mg/dL (74-106)
[2017-04-03 07:53] LABS: ALK PHOS 58 U/L (45-117); BILIRUBIN,TOTAL 0.7 mg/dL (0.2-1.0); CREATININE 0.8 mg/dL (0.7-1.3); SGOT/AST 17 U/L (15-37); SGPT/ALT 30 U/L (12-78); TOT PROT 4.7 g/dl (6.4-8.2)
[2017-04-03 08:39] LABS: MCH 29.8 pg (25.7-33.7); MCHC 32.1 g/dl (32.0-35.9); MEAN CELL VOLUME 92.9 fl (80-96); MEAN PLT VOLUME 7.8 fl (7.5-11.1); PLATELET COUNT 121 K/MM3 (134-434); RDW 17.6 % (11.9-15.9); WHITE BLOOD COUNT 12.4 K/mm3 (4.0-10.0)
[2017-04-03] MEDS: CHOLESTYRAMINE/ASPARTAME 4 GM PACKET PO SCH ×2 (09:35→21:40)
[2017-04-03] MEDS: amLODIPine BESYLATE 10 MG TABLET (FP) PO SCH (09:36)
[2017-04-03] MEDS: hydrALAZINE HCL 25 MG TABLET (FP) PO SCH ×2 (09:36→21:41)
[2017-04-03] MEDS: guaiFENesin 600 MG TABLET.ER (FP) PO SCH ×2 (09:36→21:41)
[2017-04-03] MEDS: ISOSORBIDE MONONITRATE 30 MG TAB.SR.24H (FP) PO SCH (09:36)
[2017-04-03] MEDS: PANTOPRAZOLE 40 MG TABLET (FP) PO SCH (09:36)
[2017-04-03] MEDS: LEVETIRACETAM 250 MG, LEVETIRACETAM 500 MG PO SCH ×2 (09:36→21:40)
[2017-04-03] MEDS: CHOLECALCIFEROL (VITAMIN D3) 1,000 UNIT TABLET (FP) PO SCH (09:36)
[2017-04-03] MEDS: LORATADINE 10 MG TABLET PO SCH (09:36)
[2017-04-03] MEDS: methylPREDNISolone NA SUCC 40 MG/1 ML VIAL IVPB SCH (09:37)
[2017-04-03] MEDS: TAMSULOSIN HCL 0.4 MG CAP.ER.24H (FP) PO SCH (09:37)
--- NOTE | 2017-04-03 10:05 | PN ---
Progress Note (short form) - Note Progress Note: PULMONARY Breathing continues to slowly improve. +mostly nonproductive cough. No fevers or chills. Last Vital Signs Temp Pulse Resp BP Pulse Ox 97.5 F L 73 20 147/62 93 L 04/03/17 05:00 04/03/17 05:00 04/03/17 05:00 04/03/17 05:00 04/02/17 21:00 Gen: mildly tachypneic at rest Heart: RRR Lung: less scattered rhonchi Abd: soft, nontender Ext: + UE edema CBC, BMP 04/03/17 06:00 04/03/17 06:00 Active Medications Acetaminophen (Tylenol -) 650 mg PO Q4H PRN PRN Reason: FEVER OR PAIN Last Admin: 04/02/17 09:21 Dose: 650 mg Al Hydroxide/Mg Hydroxide (Mylanta Oral Suspension -) 30 ml PO Q6HPO [facility] Last Admin: 04/03/17 05:51 Dose: 30 ml Albuterol Sulfate (Ventolin 0.083% Nebulizer Soln -) 1 amp NEB Q4H PRN PRN Reason: SHORT OF BREATH/WHEEZING Last Admin: 03/28/17 21:00 Dose: 1 amp Amlodipine Besylate (Norvasc -) 10 mg PO DAILY [facility] Last Admin: 04/03/17 09:36 Dose: 10 mg Atorvastatin Calcium (Lipitor -) 10 mg PO HS [facility] Last Admin: 04/02/17 22:28 Dose: 10 mg Cholecalciferol (Vitamin D3 -) 1,000 unit PO DAILY [facility] Last Admin: 04/03/17 09:36 Dose: 1,000 unit Cholestyramine Resin (Questran Light Packet -) 4 gm PO BID [facility] Last Admin: 04/03/17 09:35 Dose: 4 gm Guaifenesin (Mucinex -) 600 mg PO BID [facility] Last Admin: 04/03/17 09:36 Dose: 600 mg Hydralazine HCl (Apresoline -) 25 mg PO BID [facility] Last Admin: 04/03/17 09:36 Dose: 25 mg Vancomycin HCl 1,500 mg/ (Dextrose) 500 mls @ 166.667 mls/hr IVPB DAILY@1400 [facility] PRN Reason: Protocol Last Admin: 04/02/17 16:00 Dose: 166.667 mls/hr Isosorbide Mononitrate (Imdur -) 30 mg PO DAILY [facility] Last Admin: 04/03/17 09:36 Dose: 30 mg Levetiracetam 250 mg/ (Levetiracetam 500 mg) 750 mg PO BID [facility] Last Admin: 04/03/17 09:36 Dose: 750 mg Loratadine (Claritin -) 10 mg PO DAILY [facility] Last Admin: 04/03/17 09:36 Dose: 10 mg Methylprednisolone Sodium Succinate (Solu-Medrol -) 40 mg IVPB BID [facility] Last Admin: 04/03/17 09:37 Dose: 40 mg Mometasone Furoate (Asmanex 220mcg -) 1 puff IH [facility] Last Admin: 04/02/17 22:29 Dose: 1 puff Montelukast Sodium (Singulair -) 10 mg PO HS [facility] Last Admin: 04/02/17 22:28 Dose: 10 mg Multi-Ingredient Ointment (Zinc Oxide) 1 applic TP TID [facility] Last Admin: 04/03/17 05:51 Dose: 1 applic Nitroglycerin (Nitrostat -) 0.4 mg SL Q5M PRN PRN Reason: CHEST PAIN Nystatin (Nystop Powder -) 1 applic TP BID [facility] Last Admin: 04/02/17 22:29 Dose: 1 applic Oxymetazoline HCl (Afrin -) 2 spray NS BID PRN PRN Reason: NASAL CONGESTION Pantoprazole Sodium (Protonix -) 40 mg PO DAILY [facility] Last Admin: 04/03/17 09:36 Dose: 40 mg Tamsulosin HCl (Flomax -) 0.4 mg PO DAILY@0830 [facility] Last Admin: 04/03/17 09:37 Dose: 0.4 mg A/P Acute on Chronic Hypoxic Respiratory Failure improving Pneumonia COPD CAD LV Diastolic Dysfunction GI Bleed Anemia Lymphoma - antibiotics per ID - will change steroids to PO - inhaled bronchodilators - O2 to keep SpO2 >90% - aspiration precautions - continue protonix - monitor H/H - DVT prophylaxis - would defer elective procedures until respiratory status improved - can discharge to [facility] from pulmonary standpoint, needs rehab/PT
[2017-04-03 10:37] LABS: PLATELET ESTIMATE SLT DECREASED (NORMAL)
[2017-04-03] MEDS: ALBUTEROL SO4 0.083% IH SOL 2.5 MG/3 ML VIAL.NEB. NEB PRN (10:55)
--- NOTE | 2017-04-03 12:12 | PN ---
Progress Note, PERSONNEL INTERVIEWER - Note Progress Note: Pt continuesw on puree/honey thick liquid. Selected Entries 04/01/17 04/01/17 04/01/17 09:22 15:03 18:00 Breakfast 100% Lunch 75% Supper 100% Temperature 04/02/17 04/02/17 04/02/17 06:00 08:00 09:41 Breakfast 100% Lunch Supper Temperature 98.5 F 97.5 F L 04/02/17 04/02/17 04/02/17 09:50 14:54 17:15 Breakfast 100% Lunch 100% Supper Temperature 98.6 F 97.8 F 04/02/17 04/03/17 04/03/17 21:00 01:00 05:00 Breakfast Lunch Supper Temperature 98.4 F 98.9 F 97.5 F L 04/03/17 10:03 Breakfast Lunch Supper Temperature 98.5 F Laboratory Tests 04/01/17 04/02/17 04/03/17 06:00 06:10 06:00 WBC 7.8 11.0 H D 12.4 H Last CXR 03/29. Last MBS,03/10/17 was (-) for aspiration with mildly delayed esophageal emptying.
[2017-04-03] MEDS: NYSTATIN POWDER 100,000 UNITS/GM - 15 GM TOPICAL POWDER TP SCH ×2 (13:24→21:41)
[2017-04-03] MEDS: VANCOMYCIN 1,500 MG in DEXTROSE 5%-WATER - 500 ML IVPB SCH (13:25)
--- NOTE | 2017-04-03 13:52 | PN ---
Progress Note, Physician History of Present Illness: stable weak continues to improve - Current Medication List Current Medications: Active Medications Acetaminophen (Tylenol -) 650 mg PO Q4H PRN PRN Reason: FEVER OR PAIN Last Admin: 04/02/17 09:21 Dose: 650 mg Al Hydroxide/Mg Hydroxide (Mylanta Oral Suspension -) 30 ml PO Q6HPO [facility] Last Admin: 04/03/17 05:51 Dose: 30 ml Albuterol Sulfate (Ventolin 0.083% Nebulizer Soln -) 1 amp NEB Q4H PRN PRN Reason: SHORT OF BREATH/WHEEZING Last Admin: 04/03/17 10:55 Dose: 1 amp Amlodipine Besylate (Norvasc -) 10 mg PO DAILY [facility] Last Admin: 04/03/17 09:36 Dose: 10 mg Atorvastatin Calcium (Lipitor -) 10 mg PO HS [facility] Last Admin: 04/02/17 22:28 Dose: 10 mg Cholecalciferol (Vitamin D3 -) 1,000 unit PO DAILY [facility] Last Admin: 04/03/17 09:36 Dose: 1,000 unit Cholestyramine Resin (Questran Light Packet -) 4 gm PO BID [facility] Last Admin: 04/03/17 09:35 Dose: 4 gm Guaifenesin (Mucinex -) 600 mg PO BID [facility] Last Admin: 04/03/17 09:36 Dose: 600 mg Hydralazine HCl (Apresoline -) 25 mg PO BID [facility] Last Admin: 04/03/17 09:36 Dose: 25 mg Vancomycin HCl 1,500 mg/ (Dextrose) 500 mls @ 166.667 mls/hr IVPB DAILY@1400 [facility] PRN Reason: Protocol Last Admin: 04/03/17 13:25 Dose: 166.667 mls/hr Isosorbide Mononitrate (Imdur -) 30 mg PO DAILY [facility] Last Admin: 04/03/17 09:36 Dose: 30 mg Levetiracetam 250 mg/ (Levetiracetam 500 mg) 750 mg PO BID [facility] Last Admin: 04/03/17 09:36 Dose: 750 mg Loratadine (Claritin -) 10 mg PO DAILY [facility] Last Admin: 04/03/17 09:36 Dose: 10 mg Mometasone Furoate (Asmanex 220mcg -) 1 puff IH HS [facility] Last Admin: 04/02/17 22:29 Dose: 1 puff Montelukast Sodium (Singulair -) 10 mg PO HS [facility] Last Admin: 04/02/17 22:28 Dose: 10 mg Multi-Ingredient Ointment (Zinc Oxide) 1 applic TP TID [facility] Last Admin: 04/03/17 12:00 Dose: 1 applic Nitroglycerin (Nitrostat -) 0.4 mg SL Q5M PRN PRN Reason: CHEST PAIN Nystatin (Nystop Powder -) 1 applic TP BID [facility] Last Admin: 04/03/17 13:24 Dose: 1 applic Oxymetazoline HCl (Afrin -) 2 spray NS BID PRN PRN Reason: NASAL CONGESTION Pantoprazole Sodium (Protonix -) 40 mg PO DAILY [facility] Last Admin: 04/03/17 09:36 Dose: 40 mg Prednisone (Deltasone -) 40 mg PO DAILY [facility] Tamsulosin HCl (Flomax -) 0.4 mg PO DAILY@0830 [facility] Last Admin: 04/03/17 09:37 Dose: 0.4 mg - Objective Vital Signs: Vital Signs Temperature 98.5 F 04/03/17 10:03 Pulse Rate 76 04/03/17 10:37 Respiratory Rate 20 04/03/17 10:03 Blood Pressure 132/56 04/03/17 10:03 O2 Sat by Pulse Oximetry (%) 95 04/03/17 10:37 Constitutional: Yes: No Distress, Calm Cardiovascular: Yes: S1, S2 Respiratory: Yes: Regular, CTA Bilaterally Gastrointestinal: Yes: Normal Bowel Sounds, Soft Musculoskeletal: Yes: WNL Extremities: Yes: WNL Neurological: Yes: Alert, Oriented Psychiatric: Yes: Alert, Oriented Labs: CBC, BMP 04/03/17 06:00 04/03/17 06:00 INR, PTT INR 1.03 (0.82-1.09) 03/22/17 05:15 Assessment/Plan Problem List - Problems (1) Pneumonia Code(s): J18.9 - PNEUMONIA, UNSPECIFIED ORGANISM Qualifiers: Pneumonia type: due to unspecified organism Laterality: bilateral Lung location: lower lobe of lung Qualified Code(s): J18.9 - Pneumonia, unspecified organism (2) COPD exacerbation Code(s): J44.1 - CHRONIC OBSTRUCTIVE PULMONARY DISEASE W (ACUTE) EXACERBATION (3) YEISON (acute kidney injury) Code(s): N17.9 - ACUTE KIDNEY FAILURE, UNSPECIFIED (4) Acute respiratory failure Code(s): J96.00 - ACUTE RESPIRATORY FAILURE, UNSP W HYPOXIA OR HYPERCAPNIA (5) CHF (congestive heart failure) Code(s): I50.9 - HEART FAILURE, UNSPECIFIED Qualifiers: Congestive heart failure type: unspecified congestive heart failure type Congestive heart failure chronicity: unspecified congestive heart failure chronicity Qualified Code(s): I50.9 - Heart failure, unspecified (6) CVA (cerebral vascular accident) Code(s): I63.9 - CEREBRAL INFARCTION, UNSPECIFIED Qualifiers: CVA mechanism: unspecified Qualified Code(s): I63.9 - Cerebral infarction, unspecified (7) HTN (hypertension) Code(s): I10 - ESSENTIAL (PRIMARY) HYPERTENSION Qualifiers: Hypertension type: essential hypertension Qualified Code(s): I10 - Essential (primary) hypertension (8) Duodenitis Code(s): K29.80 - DUODENITIS WITHOUT BLEEDING 9 mrsa pneumonia plan mrsa pneumonia continue abx patient to continue abx for a total of 14 days continue physio await for trough
--- NOTE | 2017-04-03 18:57 | PN ---
Progress Note (short form) - Note Progress Note: Doing well. Afebrile. Denies chest pain, shortness of breath, palpitation or dizziness. 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: Yes: CVA, Dementia, TIA Cardiovascular: Yes: CAD, HTN Pulmonary: Yes: COPD Gastrointestinal: Yes: Other (HX OF PROGRESSIVE REGURGITATION FOR YEARS, PLACED ON OMEPRAZOLE BY PMD NO WORK UP EVER DONE DESPITE SYMPTOMS) Renal/: Yes: Cancer (prostate) - Past Surgical History Past Surgical History: Yes: Carotid Endarterectomy (carotid "stent" about 2 years go), Stent (carotid; denies cardiac stent) - Advance Directives Advance Directives: Yes: Living Will, Health Care Proxy, DNR - Smoking History Smoking history: Former smoker Have you smoked in the past 12 months: No Aproximately how many cigarettes per day: 0 If you are a former smoker, when did you quit?: over 20 years go - Alcohol/Substance Use Hx Alcohol Use: No - Social History ADL: Family Assistance History of Recent Travel: No Home Medications - Allergies Allergies/Adverse Reactions: Allergies Allergy/AdvReac Type Severity Reaction Status Date / Time Anesthetics - Angle Type- Allergy Unknown Verified 03/20/17 17:27 Parabens [Anesthetics - Angle Type] latex Allergy Verified 03/20/17 17:27 - Home Medications Home Medications: Ambulatory Orders Albuterol 0.083% Nebulizer Lela [Ventolin 0.083% Nebulizer Soln -] 1 neb NEB BID 09/30/14 Aspirin/Dipyridamole [Aggrenox -] 1 combo PO BID 09/30/14 Cholecalciferol (Vitamin D3) [Vitamin D3] 1,000 unit PO DAILY 09/30/14 Cholestyramine/Sucrose [Cholestyramine Packet] 4 gm PO BID PRN 09/30/14 Fluticasone Propionate [Flovent Hfa] 110 mg IH BID 09/30/14 Levetiracetam [Keppra -] 750 mg PO BID 09/30/14 Lipase/Protease/Amylase [Pancrease EC Capsule] 4 each PO DAILY 09/30/14 Loratadine 10 mg PO DAILY 09/30/14 Montelukast Na [Singulair -] 10 mg PO HS 09/30/14 Simvastatin [Zocor] 20 mg PO HS 09/30/14 Solifenacin Succinate [Vesicare] 10 mg PO DAILY 09/30/14 Tamsulosin HCl [Flomax -] 0.4 mg PO DAILY 09/30/14 Tiotropium [place] [Spiriva] 1 inh PO DAILY 09/30/14 Lipase/Protease/Amylase [Pancrelipase 5,000 Dr Capsule -] 2 each PO BIDWM #60 cap 10/06/14 Oxymetazoline 0.05% Nasal Soln [Afrin -] 2 spray NS BID PRN #7 spraybtl Ranitidine [Zantac -] 150 mg PO BID #30 tablet 10/06/14 Tramadol HCl 50 mg PO Q6H #20 tablet MDD 200mg 01/08/17 Amlodipine Besylate [Norvasc -] 10 mg PO DAILY #30 tablet 03/19/17 Azithromycin 500 mg PO DAILY #5 tablet 03/19/17 Cefuroxime Axetil [Ceftin -] 500 mg PO BID #14 tablet 03/19/17 Hydralazine HCl 10 mg PO BID #60 tablet 03/19/17 Prednisone [Deltasone -] See Taper PO DAILY #30 tablet 03/19/17 Menthol/Zinc Oxide [Calmoseptine Ointment] 71 gm TP QID 03/20/17 Nystatin Powder [Nystop Topical Powder -] 15 gm TP BID 03/20/17 Review of Systems - Review of Systems Constitutional: reports: Lethargy, Weakness Eyes: reports: No Symptoms HENT: reports: No Symptoms Neck: reports: Stiffness Cardiovascular: reports: Shortness of Breath Respiratory: reports: Cough, SOB, Wheezing Gastrointestinal: reports: Nausea Genitourinary: reports: No Symptoms Musculoskeletal: reports: Back Pain Neurological: reports: No Symptoms Physical Examination Vital Signs: Vital Signs Period Temp Pulse Resp BP Sys/Bush Pulse Ox Last 24 Hr 97.5 F-98.9 F 66-78 20-20 123-147/48-62 93-95 Constitutional: Yes: Moderate Distress, Obese Eyes: Yes: Conjunctiva Clear, EOM Intact HENT: Yes: Atraumatic, Normocephalic Neck: Yes: Supple, Trachea Midline Cardiovascular: Yes: Regular Rate and Rhythm Respiratory: Yes: Diminished (air entry decreased b/l lung base) Gastrointestinal: Yes: Normal Bowel Sounds, Soft ...Rectal Exam: Yes: Deferred Musculoskeletal: Yes: Back Pain Neurological: Yes: Alert, Oriented ...Motor Strength: WNL Psychiatric: Yes: Alert Imaging - Results Chest X-ray: Report Reviewed Cat Scan: Report Reviewed Current Medications Acetaminophen (Tylenol -) 650 mg PO Q4H PRN PRN Reason: FEVER OR PAIN Last Admin: 04/01/17 18:14 Dose: 650 mg Al Hydroxide/Mg Hydroxide (Mylanta Oral Suspension -) 30 ml PO Q6HPO [facility] Last Admin: 04/02/17 05:47 Dose: 30 ml Albuterol Sulfate (Ventolin 0.083% Nebulizer Soln -) 1 amp NEB Q4H PRN PRN Reason: SHORT OF BREATH/WHEEZING Last Admin: 03/28/17 21:00 Dose: 1 amp Albuterol/Ipratropium (Duoneb -) 1 amp NEB QIDR [facility] Last Admin: 04/02/17 07:25 Dose: 1 amp Amlodipine Besylate (Norvasc -) 10 mg PO DAILY [facility] Last Admin: 04/01/17 10:43 Dose: 10 mg Atorvastatin Calcium (Lipitor -) 10 mg PO HS [facility] Last Admin: 04/01/17 21:24 Dose: 10 mg Cholecalciferol (Vitamin D3 -) 1,000 unit PO DAILY [facility] Last Admin: 04/01/17 10:43 Dose: 1,000 unit Cholestyramine Resin (Questran Light Packet -) 4 gm PO BID [facility] Last Admin: 04/01/17 21:26 Dose: 4 gm Guaifenesin (Mucinex -) 600 mg PO BID [facility] Last Admin: 04/01/17 21:25 Dose: 600 mg Hydralazine HCl (Apresoline -) 25 mg PO BID [facility] Last Admin: 04/01/17 21:25 Dose: 25 mg Vancomycin HCl 1,500 mg/ (Dextrose) 500 mls @ 166.667 mls/hr IVPB DAILY@1400 [facility] PRN Reason: Protocol Last Admin: 04/01/17 14:45 Dose: 166.667 mls/hr Levetiracetam 250 mg/ (Levetiracetam 500 mg) 750 mg PO BID [facility] Last Admin: 04/01/17 21:25 Dose: 750 mg Loratadine (Claritin -) 10 mg PO DAILY [facility] Last Admin: 04/01/17 10:43 Dose: 10 mg Methylprednisolone Sodium Succinate (Solu-Medrol -) 40 mg IVPB BID [facility] Last Admin: 04/01/17 21:26 Dose: 40 mg Mometasone Furoate (Asmanex 220mcg -) 1 puff IH [facility] Last Admin: 04/01/17 21:24 Dose: 1 puff Montelukast Sodium (Singulair -) 10 mg PO HS [facility] Last Admin: 04/01/17 21:25 Dose: 10 mg Multi-Ingredient Ointment (Zinc Oxide) 1 applic TP TID [facility] Last Admin: 04/02/17 05:49 Dose: 1 applic Nitroglycerin (Nitrostat -) 0.4 mg SL Q5M PRN PRN Reason: CHEST PAIN Nystatin (Nystop Powder -) 1 applic TP BID [facility] Last Admin: 04/01/17 21:26 Dose: 1 applic Oxymetazoline HCl (Afrin -) 2 spray NS BID PRN PRN Reason: NASAL CONGESTION Pantoprazole Sodium (Protonix -) 40 mg PO DAILY [facility] Last Admin: 04/01/17 11:16 Dose: 40 mg Tamsulosin HCl (Flomax -) 0.4 mg PO DAILY@0830 [facility] Last Admin: 04/01/17 10:43 Dose: 0.4 mg CBC, BMP 04/03/17 06:00 04/03/17 06:00 Problem List - Problems (1) Pneumonia Assessment/Plan: Improving. MSSA Pneumonia IV abx as per ID Pulmonary and ID follow up appreciated. Code(s): J18.9 - PNEUMONIA, UNSPECIFIED ORGANISM Qualifiers: Pneumonia type: due to unspecified organism Laterality: bilateral Lung location: lower lobe of lung Qualified Code(s): J18.9 - Pneumonia, unspecified organism (2) COPD exacerbation Assessment/Plan: Improving. Continue O2 NC/Inhaled bronchodilators/Solumedrol. Management per pulmonary. Code(s): J44.1 - CHRONIC OBSTRUCTIVE PULMONARY DISEASE W (ACUTE) EXACERBATION (3) YEISON (acute kidney injury) Assessment/Plan: Improving. Renal follow up appreciated. Code(s): N17.9 - ACUTE KIDNEY FAILURE, UNSPECIFIED (4) Acute respiratory failure Code(s): J96.00 - ACUTE RESPIRATORY FAILURE, UNSP W HYPOXIA OR HYPERCAPNIA Improving. Continue current management. BiPaP as needed. (5) CHF (congestive heart failure) Assessment/Plan: Stable. Chest x ray improved. Cardiology follow up appreciated. Will continue current management. Code(s): I50.9 - HEART FAILURE, UNSPECIFIED Qualifiers: Congestive heart failure type: unspecified congestive heart failure type Congestive heart failure chronicity: unspecified congestive heart failure chronicity Qualified Code(s): I50.9 - Heart failure, unspecified (6) CVA (cerebral vascular accident) Assessment/Plan: stable. Aggrenox on hold because of GI bleed Code(s): I63.9 - CEREBRAL INFARCTION, UNSPECIFIED Qualifiers: CVA mechanism: unspecified Qualified Code(s): I63.9 - Cerebral infarction, unspecified (7) HTN (hypertension) Code(s): I10 - ESSENTIAL (PRIMARY) HYPERTENSION Qualifiers: Hypertension type: essential hypertension Qualified Code(s): I10 - Essential (primary) hypertension Reasonable control. Continue current meds. (8) Duodenitis Assessment/Plan: CT Scan shows duodenitis. Patient with nausea, abdominal discomfort. GI follow up appreciated. Code(s): K29.80 - DUODENITIS WITHOUT BLEEDING 9) GI Bleed: S/P Transfusion. H/H improving. GI follow up appreciated. Patient continues to improve. Anticipate discharge in next 24hrs. Problem List - Problems (1) Pneumonia Code(s): J18.9 - PNEUMONIA, UNSPECIFIED ORGANISM Qualifiers: Pneumonia type: due to unspecified organism Laterality: bilateral Lung location: lower lobe of lung Qualified Code(s): J18.9 - Pneumonia, unspecified organism (2) COPD exacerbation Code(s): J44.1 - CHRONIC OBSTRUCTIVE PULMONARY DISEASE W (ACUTE) EXACERBATION (3) YEISON (acute kidney injury) Code(s): N17.9 - ACUTE KIDNEY FAILURE, UNSPECIFIED (4) Acute respiratory failure Code(s): J96.00 - ACUTE RESPIRATORY FAILURE, UNSP W HYPOXIA OR HYPERCAPNIA Qualifiers: Respiratory failure complication: hypoxia Qualified Code(s): J96.01 - Acute respiratory failure with hypoxia (5) CHF (congestive heart failure) Code(s): I50.9 - HEART FAILURE, UNSPECIFIED Qualifiers: Congestive heart failure type: unspecified congestive heart failure type Congestive heart failure chronicity: unspecified congestive heart failure chronicity Qualified Code(s): I50.9 - Heart failure, unspecified (6) CVA (cerebral vascular accident) Code(s): I63.9 - CEREBRAL INFARCTION, UNSPECIFIED Qualifiers: CVA mechanism: unspecified Qualified Code(s): I63.9 - Cerebral infarction, unspecified (7) HTN (hypertension) Code(s): I10 - ESSENTIAL (PRIMARY) HYPERTENSION Qualifiers: Hypertension type: essential hypertension Qualified Code(s): I10 - Essential (primary) hypertension (8) Duodenitis Code(s): K29.80 - DUODENITIS WITHOUT BLEEDING
[2017-04-03] MEDS: ATORVASTATIN CA 10 MG TABLET (FP) PO SCH (21:41)
[2017-04-03] MEDS: MOMETASONE FUROATE 220 MCG/IH INHALER IH SCH (21:41)
[2017-04-03] MEDS: MONTELUKAST NA 10 MG TABLET PO SCH (21:41)
[2017-04-04] MEDS: ZINC OXIDE 20% TOPICAL OINTMENT 30 GM TUBE TP SCH ×2 (06:34→15:45)
[2017-04-04] MEDS: MAG HYDROX/AL HYDROX/SIMETH 30 ML UNIT-DOSE CUP PO SCH ×2 (06:34→12:13)
[2017-04-04 07:42] LABS: BASOPHIL 0.1 % (0-2.0); EOSINOPHIL 0.2 % (0-4.5); MCH 30.2 pg (25.7-33.7); MCHC 32.5 g/dl (32.0-35.9); MEAN PLT VOLUME 7.8 fl (7.5-11.1); NEUTROPHILS 89.4 % (42.8-82.8); PLATELET COUNT 114 K/MM3 (134-434); RDW 17.8 % (11.9-15.9); WHITE BLOOD COUNT 8.7 K/mm3 (4.0-10.0)
[2017-04-04 08:17] LABS: ALBUMIN 2.3 g/dl (3.4-5.0); ALK PHOS 53 U/L (45-117); ANION GAP 7 (8-16); CALCIUM 7.9 mg/dL (8.5-10.1); CO2 32 mmol/L (21-32); CREATININE 0.7 mg/dL (0.7-1.3); GLUCOSE,RANDOM 87 mg/dL (74-106); SGOT/AST 16 U/L (15-37); SGPT/ALT 26 U/L (12-78); TOT PROT 4.6 g/dl (6.4-8.2)
[2017-04-04] MEDS: ACETAMINOPHEN 325 MG TABLET (FP) PO PRN (08:43)
[2017-04-04] MEDS: TAMSULOSIN HCL 0.4 MG CAP.ER.24H (FP) PO SCH (08:50)
[2017-04-04] MEDS ORDERED: traMADol HCL 50 MG TABLET PO PRN (08:56)
[2017-04-04] MEDS: ISOSORBIDE MONONITRATE 30 MG TAB.SR.24H (FP) PO SCH (09:59)
[2017-04-04] MEDS: CHOLECALCIFEROL (VITAMIN D3) 1,000 UNIT TABLET (FP) PO SCH (09:59)
[2017-04-04] MEDS: LORATADINE 10 MG TABLET PO SCH (09:59)
[2017-04-04] MEDS: PANTOPRAZOLE 40 MG TABLET (FP) PO SCH (09:59)
[2017-04-04] MEDS: amLODIPine BESYLATE 10 MG TABLET (FP) PO SCH (09:59)
[2017-04-04] MEDS: guaiFENesin 600 MG TABLET.ER (FP) PO SCH (09:59)
[2017-04-04] MEDS: ALBUTEROL SO4 0.083% IH SOL 2.5 MG/3 ML VIAL.NEB. NEB PRN (10:00)
[2017-04-04] MEDS ORDERED: predniSONE 20 MG TABLET (UD) PO SCH (10:00)
[2017-04-04] MEDS: CHOLESTYRAMINE/ASPARTAME 4 GM PACKET PO SCH (10:06)
[2017-04-04] MEDS: hydrALAZINE HCL 25 MG TABLET (FP) PO SCH (10:06)
[2017-04-04] MEDS: NYSTATIN POWDER 100,000 UNITS/GM - 15 GM TOPICAL POWDER TP SCH (10:06)
[2017-04-04] MEDS: LEVETIRACETAM 250 MG, LEVETIRACETAM 500 MG PO SCH (10:06)
--- NOTE | 2017-04-04 13:36 | PN ---
Progress Note (short form) - Note Progress Note: Coughing on & off. Needs frequent suctioning. Afebrile. Denies chest pain, shortness of breath, palpitation or dizziness. 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: Yes: CVA, Dementia, TIA Cardiovascular: Yes: CAD, HTN Pulmonary: Yes: COPD Gastrointestinal: Yes: Other (HX OF PROGRESSIVE REGURGITATION FOR YEARS, PLACED ON OMEPRAZOLE BY PMD NO WORK UP EVER DONE DESPITE SYMPTOMS) Renal/: Yes: Cancer (prostate) - Past Surgical History Past Surgical History: Yes: Carotid Endarterectomy (carotid "stent" about 2 years go), Stent (carotid; denies cardiac stent) - Advance Directives Advance Directives: Yes: Living Will, Health Care Proxy, DNR - Smoking History Smoking history: Former smoker Have you smoked in the past 12 months: No Aproximately how many cigarettes per day: 0 If you are a former smoker, when did you quit?: over 20 years go - Alcohol/Substance Use Hx Alcohol Use: No - Social History ADL: Family Assistance History of Recent Travel: No Home Medications - Allergies Allergies/Adverse Reactions: Allergies Allergy/AdvReac Type Severity Reaction Status Date / Time Anesthetics - Angle Type- Allergy Unknown Verified 03/20/17 17:27 Parabens [Anesthetics - Angle Type] latex Allergy Verified 03/20/17 17:27 - Home Medications Home Medications: Ambulatory Orders Albuterol 0.083% Nebulizer Lela [Ventolin 0.083% Nebulizer Soln -] 1 neb NEB BID 09/30/14 Aspirin/Dipyridamole [Aggrenox -] 1 combo PO BID 09/30/14 Cholecalciferol (Vitamin D3) [Vitamin D3] 1,000 unit PO DAILY 09/30/14 Cholestyramine/Sucrose [Cholestyramine Packet] 4 gm PO BID PRN 09/30/14 Fluticasone Propionate [Flovent Hfa] 110 mg IH BID 09/30/14 Levetiracetam [Keppra -] 750 mg PO BID 09/30/14 Lipase/Protease/Amylase [Pancrease EC Capsule] 4 each PO DAILY 09/30/14 Loratadine 10 mg PO DAILY 09/30/14 Montelukast Na [Singulair -] 10 mg PO HS 01/16/15 Simvastatin [Zocor] 20 mg PO HS 09/30/14 Solifenacin Succinate [Vesicare] 10 mg PO DAILY 09/30/14 Tamsulosin HCl [Flomax -] 0.4 mg PO DAILY 09/30/14 Tiotropium Wann [Spiriva] 1 inh PO DAILY 09/30/14 Lipase/Protease/Amylase [Pancrelipase 5,000 Dr Capsule -] 2 each PO BIDWM #60 cap 10/06/14 Oxymetazoline 0.05% Nasal Soln [Afrin -] 2 spray NS BID PRN #7 spraybtl Ranitidine [Zantac -] 150 mg PO BID #30 tablet 10/06/14 Tramadol HCl 50 mg PO Q6H #20 tablet MDD 200mg 01/08/17 Amlodipine Besylate [Norvasc -] 10 mg PO DAILY #30 tablet 03/19/17 Azithromycin 500 mg PO DAILY #5 tablet 03/19/17 Cefuroxime Axetil [Ceftin -] 500 mg PO BID #14 tablet 03/19/17 Hydralazine HCl 10 mg PO BID #60 tablet 03/19/17 Prednisone [Deltasone -] See Taper PO DAILY #30 tablet 03/19/17 Menthol/Zinc Oxide [Calmoseptine Ointment] 71 gm TP QID 03/20/17 Nystatin Powder [Nystop Topical Powder -] 15 gm TP BID 03/20/17 Review of Systems - Review of Systems Constitutional: reports: Lethargy, Weakness Eyes: reports: No Symptoms HENT: reports: No Symptoms Neck: reports: Stiffness Cardiovascular: reports: Shortness of Breath Respiratory: reports: Cough, SOB, Wheezing Gastrointestinal: reports: Nausea Genitourinary: reports: No Symptoms Musculoskeletal: reports: Back Pain Neurological: reports: No Symptoms Physical Examination Vital Signs: Vital Signs Period Temp Pulse Resp BP Sys/Bush Pulse Ox Last 24 Hr 97.5 F-98.6 F 66-82 18-20 123-142/45-69 94 Constitutional: Yes: Moderate Distress, Obese Eyes: Yes: Conjunctiva Clear, EOM Intact HENT: Yes: Atraumatic, Normocephalic Neck: Yes: Supple, Trachea Midline Cardiovascular: Yes: Regular Rate and Rhythm Respiratory: Yes: Diminished (air entry decreased b/l lung base) Gastrointestinal: Yes: Normal Bowel Sounds, Soft ...Rectal Exam: Yes: Deferred Musculoskeletal: Yes: Back Pain Neurological: Yes: Alert, Oriented ...Motor Strength: WNL Psychiatric: Yes: Alert Imaging - Results Chest X-ray: Report Reviewed Cat Scan: Report Reviewed Current Medications Acetaminophen (Tylenol -) 650 mg PO Q4H PRN PRN Reason: FEVER OR PAIN Last Admin: 04/01/17 18:14 Dose: 650 mg Al Hydroxide/Mg Hydroxide (Mylanta Oral Suspension -) 30 ml PO Q6HPO [facility] Last Admin: 04/02/17 05:47 Dose: 30 ml Albuterol Sulfate (Ventolin 0.083% Nebulizer Soln -) 1 amp NEB Q4H PRN PRN Reason: SHORT OF BREATH/WHEEZING Last Admin: 03/28/17 21:00 Dose: 1 amp Albuterol/Ipratropium (Duoneb -) 1 amp NEB QIDR [facility] Last Admin: 04/02/17 07:25 Dose: 1 amp Amlodipine Besylate (Norvasc -) 10 mg PO DAILY [facility] Last Admin: 04/01/17 10:43 Dose: 10 mg Atorvastatin Calcium (Lipitor -) 10 mg PO HS [facility] Last Admin: 04/01/17 21:24 Dose: 10 mg Cholecalciferol (Vitamin D3 -) 1,000 unit PO DAILY [facility] Last Admin: 04/01/17 10:43 Dose: 1,000 unit Cholestyramine Resin (Questran Light Packet -) 4 gm PO BID [facility] Last Admin: 04/01/17 21:26 Dose: 4 gm Guaifenesin (Mucinex -) 600 mg PO BID [facility] Last Admin: 04/01/17 21:25 Dose: 600 mg Hydralazine HCl (Apresoline -) 25 mg PO BID [facility] Last Admin: 04/01/17 21:25 Dose: 25 mg Vancomycin HCl 1,500 mg/ (Dextrose) 500 mls @ 166.667 mls/hr IVPB DAILY@1400 [facility] PRN Reason: Protocol Last Admin: 04/01/17 14:45 Dose: 166.667 mls/hr Levetiracetam 250 mg/ (Levetiracetam 500 mg) 750 mg PO BID [facility] Last Admin: 04/01/17 21:25 Dose: 750 mg Loratadine (Claritin -) 10 mg PO DAILY [facility] Last Admin: 04/01/17 10:43 Dose: 10 mg Methylprednisolone Sodium Succinate (Solu-Medrol -) 40 mg IVPB BID [facility] Last Admin: 04/01/17 21:26 Dose: 40 mg Mometasone Furoate (Asmanex 220mcg -) 1 puff IH [facility] Last Admin: 04/01/17 21:24 Dose: 1 puff Montelukast Sodium (Singulair -) 10 mg PO HS [facility] Last Admin: 04/01/17 21:25 Dose: 10 mg Multi-Ingredient Ointment (Zinc Oxide) 1 applic TP TID [facility] Last Admin: 04/02/17 05:49 Dose: 1 applic Nitroglycerin (Nitrostat -) 0.4 mg SL Q5M PRN PRN Reason: CHEST PAIN Nystatin (Nystop Powder -) 1 applic TP BID [facility] Last Admin: 04/01/17 21:26 Dose: 1 applic Oxymetazoline HCl (Afrin -) 2 spray NS BID PRN PRN Reason: NASAL CONGESTION Pantoprazole Sodium (Protonix -) 40 mg PO DAILY [facility] Last Admin: 04/01/17 11:16 Dose: 40 mg Tamsulosin HCl (Flomax -) 0.4 mg PO DAILY@0830 [facility] Last Admin: 04/01/17 10:43 Dose: 0.4 mg CBC, BMP 04/04/17 06:00 04/04/17 06:00 Problem List - Problems (1) Pneumonia Assessment/Plan: Improving. MSSA Pneumonia IV abx as per ID To finish 14 days of vancomycin. Pulmonary and ID follow up appreciated. Code(s): J18.9 - PNEUMONIA, UNSPECIFIED ORGANISM Qualifiers: Pneumonia type: due to unspecified organism Laterality: bilateral Lung location: lower lobe of lung Qualified Code(s): J18.9 - Pneumonia, unspecified organism (2) COPD exacerbation Assessment/Plan: Improving. Continue O2 NC/Inhaled bronchodilators. On Prednisone 40 mg PO daily. With slow taper. Stable to be discharged from pulmonary point of view. Code(s): J44.1 - CHRONIC OBSTRUCTIVE PULMONARY DISEASE W (ACUTE) EXACERBATION (3) YEISON (acute kidney injury) Assessment/Plan: Improving. Renal follow up appreciated. Code(s): N17.9 - ACUTE KIDNEY FAILURE, UNSPECIFIED (4) Acute respiratory failure Code(s): J96.00 - ACUTE RESPIRATORY FAILURE, UNSP W HYPOXIA OR HYPERCAPNIA Improving. Continue current management. BiPaP as needed. (5) CHF (congestive heart failure) Assessment/Plan: Stable. Chest x ray improved. Cardiology follow up appreciated. Will continue current management. Code(s): I50.9 - HEART FAILURE, UNSPECIFIED Qualifiers: Congestive heart failure type: unspecified congestive heart failure type Congestive heart failure chronicity: unspecified congestive heart failure chronicity Qualified Code(s): I50.9 - Heart failure, unspecified (6) CVA (cerebral vascular accident) Assessment/Plan: stable. Aggrenox on hold because of GI bleed Code(s): I63.9 - CEREBRAL INFARCTION, UNSPECIFIED Qualifiers: CVA mechanism: unspecified Qualified Code(s): I63.9 - Cerebral infarction, unspecified (7) HTN (hypertension) Code(s): I10 - ESSENTIAL (PRIMARY) HYPERTENSION Qualifiers: Hypertension type: essential hypertension Qualified Code(s): I10 - Essential (primary) hypertension Reasonable control. Continue current meds. (8) Duodenitis Assessment/Plan: CT Scan shows duodenitis. Patient with nausea, abdominal discomfort. GI follow up appreciated. Continue protonix 40 mg daily. Code(s): K29.80 - DUODENITIS WITHOUT BLEEDING 9) GI Bleed: S/P Transfusion. H/H improving. GI follow up appreciated. Given his respiratory status he will benefit from STR with pulmonary support. Discussed with . Agreed for [facility]. Will follow him there. Problem List - Problems (1) Pneumonia Code(s): J18.9 - PNEUMONIA, UNSPECIFIED ORGANISM Qualifiers: Pneumonia type: due to unspecified organism Laterality: bilateral Lung location: lower lobe of lung Qualified Code(s): J18.9 - Pneumonia, unspecified organism (2) COPD exacerbation Code(s): J44.1 - CHRONIC OBSTRUCTIVE PULMONARY DISEASE W (ACUTE) EXACERBATION (3) YEISON (acute kidney injury) Code(s): N17.9 - ACUTE KIDNEY FAILURE, UNSPECIFIED (4) Acute respiratory failure Code(s): J96.00 - ACUTE RESPIRATORY FAILURE, UNSP W HYPOXIA OR HYPERCAPNIA Qualifiers: Respiratory failure complication: hypoxia Qualified Code(s): J96.01 - Acute respiratory failure with hypoxia (5) CHF (congestive heart failure) Code(s): I50.9 - HEART FAILURE, UNSPECIFIED Qualifiers: Congestive heart failure type: unspecified congestive heart failure type Congestive heart failure chronicity: unspecified congestive heart failure chronicity Qualified Code(s): I50.9 - Heart failure, unspecified (6) CVA (cerebral vascular accident) Code(s): I63.9 - CEREBRAL INFARCTION, UNSPECIFIED Qualifiers: CVA mechanism: unspecified Qualified Code(s): I63.9 - Cerebral infarction, unspecified (7) HTN (hypertension) Code(s): I10 - ESSENTIAL (PRIMARY) HYPERTENSION Qualifiers: Hypertension type: essential hypertension Qualified Code(s): I10 - Essential (primary) hypertension (8) Duodenitis Code(s): K29.80 - DUODENITIS WITHOUT BLEEDING
--- NOTE | 2017-04-04 13:37 | DS ---
Physical Examination Vital Signs: Vital Signs Temperature 98.2 F 04/04/17 13:22 Pulse Rate 82 04/04/17 13:22 Respiratory Rate 18 04/04/17 13:22 Blood Pressure 131/69 04/04/17 13:22 O2 Sat by Pulse Oximetry (%) 94 L 04/03/17 20:38 Labs: CBC, BMP 04/04/17 06:00 04/04/17 06:00 Discharge Summary Reason For Visit: RESPIRATORY DISTRESS Current Active Problems Acute and chronic respiratory failure with hypoxia (Acute) COPD exacerbation (Acute) Duodenitis (Acute) GI bleed (Acute) Peripheral arterial disease (Acute) Pneumonia (Acute) Respiratory distress (Acute) Thoracic aneurysm without mention of rupture (Acute) Hospital Course: (1) Pneumonia Assessment/Plan: Improving. MSSA Pneumonia IV abx as per ID To finish 14 days of vancomycin. Pulmonary and ID follow up appreciated. Code(s): J18.9 - PNEUMONIA, UNSPECIFIED ORGANISM Qualifiers: Pneumonia type: due to unspecified organism Laterality: bilateral Lung location: lower lobe of lung Qualified Code(s): J18.9 - Pneumonia, unspecified organism (2) COPD exacerbation Assessment/Plan: Improving. Continue O2 NC/Inhaled bronchodilators. On Prednisone 40 mg PO daily. With slow taper. Stable to be discharged from pulmonary point of view. Code(s): J44.1 - CHRONIC OBSTRUCTIVE PULMONARY DISEASE W (ACUTE) EXACERBATION (3) YEISON (acute kidney injury) Assessment/Plan: Improving. Renal follow up appreciated. Code(s): N17.9 - ACUTE KIDNEY FAILURE, UNSPECIFIED (4) Acute respiratory failure Code(s): J96.00 - ACUTE RESPIRATORY FAILURE, UNSP W HYPOXIA OR HYPERCAPNIA Improving. Continue current management. BiPaP as needed. (5) CHF (congestive heart failure) Assessment/Plan: Stable. Chest x ray improved. Cardiology follow up appreciated. Will continue current management. Code(s): I50.9 - HEART FAILURE, UNSPECIFIED Qualifiers: Congestive heart failure type: unspecified congestive heart failure type Congestive heart failure chronicity: unspecified congestive heart failure chronicity Qualified Code(s): I50.9 - Heart failure, unspecified (6) CVA (cerebral vascular accident) Assessment/Plan: stable. Aggrenox on hold because of GI bleed Code(s): I63.9 - CEREBRAL INFARCTION, UNSPECIFIED Qualifiers: CVA mechanism: unspecified Qualified Code(s): I63.9 - Cerebral infarction, unspecified (7) HTN (hypertension) Code(s): I10 - ESSENTIAL (PRIMARY) HYPERTENSION Qualifiers: Hypertension type: essential hypertension Qualified Code(s): I10 - Essential (primary) hypertension Reasonable control. Continue current meds. (8) Duodenitis Assessment/Plan: CT Scan shows duodenitis. Patient with nausea, abdominal discomfort. GI follow up appreciated. Continue protonix 40 mg daily. Code(s): K29.80 - DUODENITIS WITHOUT BLEEDING 9) GI Bleed: S/P Transfusion. H/H improving. GI follow up appreciated. Given his respiratory status he will benefit from STR with pulmonary support. Discussed with . Agreed for [facility]. Will follow him there. Condition: Guarded - Instructions Referrals: Manpreet Acevedo MD [Primary Care Provider] - Disposition: [facility] - Home Medications Comprehensive Discharge Medication List: Ambulatory Orders Cholecalciferol (Vitamin D3) [Vitamin D3] 1,000 unit PO DAILY 09/30/14 Cholestyramine/Sucrose [Cholestyramine Packet] 4 gm PO BID PRN 09/30/14 Solifenacin Succinate [Vesicare] 10 mg PO DAILY 09/30/14 Oxymetazoline 0.05% Nasal Soln [Afrin -] 2 spray NS BID PRN #7 spraybtl Amlodipine Besylate [Norvasc -] 10 mg PO DAILY #30 tablet 03/19/17 Acetaminophen [Tylenol .Regular Strength -] 650 mg PO Q6H PRN #30 tablet Albuterol 2.5/Ipratropium 0.5 [Duoneb -] 1 amp NEB QIDR #30 amp 04/04/17 Atorvastatin Ca [Lipitor] 10 mg PO HS #30 tablet 04/04/17 Guaifenesin [Mucinex -] 600 mg PO BID #60 tab 04/04/17 Hydralazine HCl [Apresoline -] 25 mg PO BID #60 tablet 04/04/17 Isosorbide Mononitrate [Imdur -] 30 mg PO DAILY #30 tab.sr MDD 1 04/04/17 Levetiracetam [Keppra -] 750 mg PO BID #60 tablet 04/04/17 Loratadine 10 mg PO DAILY #30 tab 04/04/17 Mag Hydrox/Al Hydrox/Simeth [Mylanta Oral Suspension -] 30 ml PO Q6HPO #30 tab 04/04/17 Mometasone Furoate [Asmanex 220Mcg -] 1 puff IH HS #1 inhaler 04/04/17 Montelukast Na [Singulair -] 10 mg PO HS #30 tab 04/04/17 Nitroglycerin Sublingual [Nitrostat -] 0.4 mg SL Q5M PRN #60 tab 04/04/17 Nystatin Powder [Nystop Powder -] 15 gm TP BID #1 unit 04/04/17 Pantoprazole Sodium [Protonix -] 40 mg PO DAILY #30 tab 04/04/17 Prednisone [Deltasone -] 40 mg PO DAILY #3 tablet 04/04/17 Tamsulosin HCl [Flomax -] 0.4 mg PO DAILY #30 tab 04/04/17 Tramadol HCl [Ultram -] 50 mg PO Q8H PRN #60 tablet MDD 3 04/04/17 Vancomycin 1,500 mg IVPB DAILY@1400 #7 vial 04/04/17 Zinc Oxide 1 applic TP TID #30 tube 04/04/17
--- NOTE | 2017-04-04 14:05 | PN ---
Progress Note (short form) - Note Progress Note: PULMONARY RESTING COMFORTABLY VSS/AFEBRILE ANICTERIC/PALE DIMINISHED BREATH SOUNDS B/L ANTERIOR S1S2 OBESE SOFT NONTENDER SCD'S B/L LABS/MEDS/NOTES/IMAGING REVIEWED Acute on Chronic Hypoxic Respiratory Failure improving Pneumonia COPD CAD LV Diastolic Dysfunction GI Bleed Anemia Lymphoma - antibiotics per ID - prednisone taper - inhaled bronchodilators - O2 to keep SpO2 >90% - aspiration precautions - continue protonix - monitor H/H - BiPAP as needed to assist in work of breathing - DVT prophylaxis - discharge planning Elizabeth PELLETIER MD
--- NOTE | 2017-04-04 14:07 | PN ---
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 Due to overall medical condition, cont puree and honey tl and pudding supplements.] Pending d/c. Reviewed rec with pt. Suggest MBS before diet upgrade in the future to r/o silent aspiration.
--- NOTE | 2017-04-04 14:32 | PN ---
Progress Note, Physician History of Present Illness: patient sabverena no new issues - Current Medication List Current Medications: Active Medications Acetaminophen (Tylenol -) 650 mg PO Q4H PRN PRN Reason: FEVER OR PAIN Last Admin: 04/04/17 08:43 Dose: 650 mg Al Hydroxide/Mg Hydroxide (Mylanta Oral Suspension -) 30 ml PO Q6HPO [facility] Last Admin: 04/04/17 12:13 Dose: 30 ml Albuterol Sulfate (Ventolin 0.083% Nebulizer Soln -) 1 amp NEB Q4H PRN PRN Reason: SHORT OF BREATH/WHEEZING Last Admin: 04/04/17 10:00 Dose: 1 amp Amlodipine Besylate (Norvasc -) 10 mg PO DAILY [facility] Last Admin: 04/04/17 09:59 Dose: 10 mg Atorvastatin Calcium (Lipitor -) 10 mg PO HS [facility] Last Admin: 04/03/17 21:41 Dose: 10 mg Cholecalciferol (Vitamin D3 -) 1,000 unit PO DAILY [facility] Last Admin: 04/04/17 09:59 Dose: 1,000 unit Cholestyramine Resin (Questran Light Packet -) 4 gm PO BID [facility] Last Admin: 04/04/17 10:06 Dose: 4 gm Guaifenesin (Mucinex -) 600 mg PO BID [facility] Last Admin: 04/04/17 09:59 Dose: 600 mg Hydralazine HCl (Apresoline -) 25 mg PO BID [facility] Last Admin: 04/04/17 10:06 Dose: 25 mg Vancomycin HCl 1,500 mg/ (Dextrose) 500 mls @ 166.667 mls/hr IVPB DAILY@1400 [facility] PRN Reason: Protocol Last Admin: 04/03/17 13:25 Dose: 166.667 mls/hr Isosorbide Mononitrate (Imdur -) 30 mg PO DAILY [facility] Last Admin: 04/04/17 09:59 Dose: 30 mg Levetiracetam 250 mg/ (Levetiracetam 500 mg) 750 mg PO BID [facility] Last Admin: 04/04/17 10:06 Dose: 750 mg Loratadine (Claritin -) 10 mg PO DAILY [facility] Last Admin: 04/04/17 09:59 Dose: 10 mg Mometasone Furoate (Asmanex 220mcg -) 1 puff IH HS [facility] Last Admin: 04/03/17 21:41 Dose: 1 puff Montelukast Sodium (Singulair -) 10 mg PO HS [facility] Last Admin: 04/03/17 21:41 Dose: 10 mg Multi-Ingredient Ointment (Zinc Oxide) 1 applic TP TID [facility] Last Admin: 04/04/17 06:34 Dose: 1 applic Nitroglycerin (Nitrostat -) 0.4 mg SL Q5M PRN PRN Reason: CHEST PAIN Nystatin (Nystop Powder -) 1 applic TP BID [facility] Last Admin: 04/04/17 10:06 Dose: 1 applic Oxymetazoline HCl (Afrin -) 2 spray NS BID PRN PRN Reason: NASAL CONGESTION Pantoprazole Sodium (Protonix -) 40 mg PO DAILY [facility] Last Admin: 04/04/17 09:59 Dose: 40 mg Prednisone (Deltasone -) 40 mg PO DAILY [facility] Last Admin: 04/04/17 10:06 Dose: 40 mg Tamsulosin HCl (Flomax -) 0.4 mg PO DAILY@0830 [facility] Last Admin: 04/04/17 08:50 Dose: 0.4 mg Tramadol HCl (Ultram -) 50 mg PO Q8H PRN PRN Reason: PAIN Last Admin: 04/04/17 09:59 Dose: 50 mg - Objective Vital Signs: Vital Signs Temperature 98.2 F 04/04/17 13:22 Pulse Rate 82 04/04/17 13:22 Respiratory Rate 18 04/04/17 13:22 Blood Pressure 131/69 04/04/17 13:22 O2 Sat by Pulse Oximetry (%) 94 L 04/03/17 20:38 Constitutional: Yes: No Distress, Calm Neck: Yes: Supple Cardiovascular: Yes: S1, S2 Respiratory: Yes: Poor Air Entry, Rhonchi Gastrointestinal: Yes: Normal Bowel Sounds, Soft Musculoskeletal: Yes: Other Extremities: Yes: Other Neurological: Yes: Alert, Oriented Psychiatric: Yes: Alert, Oriented Labs: CBC, BMP 04/04/17 06:00 04/04/17 06:00 INR, PTT INR 1.03 (0.82-1.09) 03/22/17 05:15 Assessment/Plan Problem List - Problems (1) Pneumonia Code(s): J18.9 - PNEUMONIA, UNSPECIFIED ORGANISM Qualifiers: Pneumonia type: due to unspecified organism Laterality: bilateral Lung location: lower lobe of lung Qualified Code(s): J18.9 - Pneumonia, unspecified organism (2) COPD exacerbation Code(s): J44.1 - CHRONIC OBSTRUCTIVE PULMONARY DISEASE W (ACUTE) EXACERBATION (3) YEISON (acute kidney injury) Code(s): N17.9 - ACUTE KIDNEY FAILURE, UNSPECIFIED (4) Acute respiratory failure Code(s): J96.00 - ACUTE RESPIRATORY FAILURE, UNSP W HYPOXIA OR HYPERCAPNIA (5) CHF (congestive heart failure) Code(s): I50.9 - HEART FAILURE, UNSPECIFIED Qualifiers: Congestive heart failure type: unspecified congestive heart failure type Congestive heart failure chronicity: unspecified congestive heart failure chronicity Qualified Code(s): I50.9 - Heart failure, unspecified (6) CVA (cerebral vascular accident) Code(s): I63.9 - CEREBRAL INFARCTION, UNSPECIFIED Qualifiers: CVA mechanism: unspecified Qualified Code(s): I63.9 - Cerebral infarction, unspecified (7) HTN (hypertension) Code(s): I10 - ESSENTIAL (PRIMARY) HYPERTENSION Qualifiers: Hypertension type: essential hypertension Qualified Code(s): I10 - Essential (primary) hypertension (8) Duodenitis Code(s): K29.80 - DUODENITIS WITHOUT BLEEDING 9 mrsa pneumonia plan mrsa pneumonia patient has completed 10 days of vanco needs another 5 days of vanco rest as per the primary team
[2017-04-04] MEDS: VANCOMYCIN 1,500 MG in DEXTROSE 5%-WATER - 500 ML IVPB SCH (15:43)
[2017-04-04 17:32] VITALS: BP 108/60; PULSE 77; TEMP 97.7
== END 2017-04-04 18:58 | DRG 190 ==
LOC: JER 16:58 → UNDOADMOB 20:35 → J5S 20:35 → INTOOBSV 20:35 → J5S 22:58 → OBSVTOIN 03-21 11:15 → JICU 03-21 15:33 → J4S 03-26 19:49 → J4W 03-26 20:06 → J7W 03-28 18:06
PROVIDERS: ADMIT Internal Medicine Geriatric Medicine; ATTEND Internal Medicine Geriatric Medicine
PROC: 30233N1 Transfusion of Nonautologous Red Blood Cells into Peripheral Vein, Percutaneous Approach (ICD-10-PCS; principal; 2017-03-21)
DX: J44.0 Chronic obstructive pulmonary disease with (acute) lower respiratory infection (principal); J96.21 Acute and chronic respiratory failure with hypoxia; J15.212 Pneumonia due to Methicillin resistant Staphylococcus aureus; I31.3 Pericardial effusion (noninflammatory); I50.32 Chronic diastolic (congestive) heart failure; N17.9 Acute kidney failure, unspecified; K92.2 Gastrointestinal hemorrhage, unspecified; C85.90 Non-Hodgkin lymphoma, unspecified, unspecified site; I25.10 Atherosclerotic heart disease of native coronary artery without angina pectoris; Z86.73 Personal history of transient ischemic attack (TIA), and cerebral infarction without residual deficits; Z87.891 Personal history of nicotine dependence; I71.2 Thoracic aortic aneurysm, without rupture; N40.0 Benign prostatic hyperplasia without lower urinary tract symptoms; Z66 Do not resuscitate; I73.9 Peripheral vascular disease, unspecified; I11.0 Hypertensive heart disease with heart failure; E78.5 Hyperlipidemia, unspecified; Z85.46 Personal history of malignant neoplasm of prostate; E66.9 Obesity, unspecified; K29.80 Duodenitis without bleeding; K21.9 Gastro-esophageal reflux disease without esophagitis; D64.9 Anemia, unspecified; Z99.81 Dependence on supplemental oxygen; E87.5 Hyperkalemia; K22.4 Dyskinesia of esophagus; R13.10 Dysphagia, unspecified
CPT/HCPCS: 36415; 36430; 36600; 71010-TC; 71250-TC; 80048; 80053; 81003; 81015; 82550; 82705; 82728; 82803; 83540; 83550; 83605; 83735; 84100; 84484; 85025; 85027; 85044; 85610; 85730; 86850; 86900; 86901; 86922; 87040; 87070; 87086; 87186; 87205; 87324; 87449; 93005; 93010; 93306-TC; 94640; 97161-GP; 99285-25; G0378; G0480; P9038; P9058

== ENCOUNTER 2017-04-28 13:30 | Inpatient (IN) | payer OTHER, BC ==
--- NOTE | 2017-04-28 14:05 | PDOC ---
History of Present Illness - General History Source: Patient Exam Limitations: No Limitations - History of Present Illness Initial Comments: 04/28/17 18:33 The patient is a 89 year old male, BIBA from [facility] with a significant past medical history of CHF, CAD, CVA, Prostate CA, HTN and COPD, who presents to the emergency department with SOB and productive cough. The patient reports having a productive cough, bringing up red and clear colored sputum. Pt states he has been feeling ok the past few days, but was noted to have increased sob today so was brought ot the ED. The patient was here in March 2017 with pneumonia for about 2 weeks. The patient reports feeling his normal baseline yesterday. He denies any recent fevers, chills, headache or dizziness. He denies any recent nausea, vomit, diarrhea or constipation. He denies any recent chest pain. He denies any recent dysuria, frequency, urgency or hematuria. Allergies: NKA Past surgical history: CAD s/p stents Social History: Nonsmoker. Denies EtOH use and recreational drug use. Primary Care Physician: <Jin Matute - Last Filed: 04/28/17 18:33> <Marco Clifford - Last Filed: 04/29/17 12:22> - General Chief Complaint: Shortness of Breath Stated Complaint: RESPIRATORY Time Seen by Provider: 04/28/17 13:45 Past History <Jin Matute - Last Filed: 04/28/17 18:33> - Past Medical History Anemia: No Cancer: Yes (PROSTATE) CVA: Yes (TIA) COPD: Yes (on 3l nc at home) GI Disorders: Yes (gerd) Disorders: Yes HTN: Yes Suicide Attempt (Hx): No - Surgical History Cardiac Surgery: Yes (Stents) - Immunization History Immunization Up to Date: Yes - Psycho/Social/Smoking Cessation Hx Anxiety: No Suicidal Ideation: No Smoking Status: No Smoking History: Unknown if ever smoked Have you smoked in the past 12 months: No Number of Cigarettes Smoked Daily: 0 If you are a former smoker, when did you quit?: over 20 years go Information on smoking cessation initiated: No Hx Alcohol Use: No Drug/Substance Use Hx: No Substance Use Type: None Hx Substance Use Treatment: No <Marco Clifford - Last Filed: 04/29/17 12:22> - Past Medical History Allergies/Adverse Reactions: Allergies Allergy/AdvReac Type Severity Reaction Status Date / Time Anesthetics - Angle Type- Allergy Unknown Verified 03/20/17 17:27 Parabens [Anesthetics - Angle Type] latex Allergy Verified 03/20/17 17:27 Home Medications: Ambulatory Orders Aa/Hydrolyzed Collagen, Whey [Lps 15-30 Liquid] 960 ml PO DAILY 04/28/17 Acetaminophen [Tylenol] 650 mg PO QID 04/28/17 Amlodipine Besylate [Norvasc -] 5 mg PO DAILY 04/28/17 Ascorbate Calcium [Vitamin C] 500 mg PO BID 04/28/17 Atorvastatin Ca [Lipitor] 10 mg PO HS 04/28/17 Cholecalciferol (Vitamin D3) [Vitamin D3 -] 1,000 unit PO DAILY 04/28/17 Cholestyramine (with Sugar) [Cholestyramine Packet] 4 gm PO BID 04/28/17 Docusate Sodium [Colace -] 100 mg PO DAILY 04/28/17 Ferrous Sulfate [Feosol] 325 mg PO BID 04/28/17 Guaifenesin [Mucinex] 600 mg PO DAILY 04/28/17 Hydralazine HCl [Apresoline -] 25 mg PO BID 04/28/17 Isosorbide Mononitrate [Imdur -] 30 mg PO DAILY 04/28/17 Levetiracetam [Keppra -] 750 mg PO BID 04/28/17 Loratadine 10 mg PO DAILY 04/28/17 Mag Hydrox/Al Hydrox/Simeth [Mylanta *Suspension*] 30 ml PO ONCE 04/28/17 Mometasone Furoate [Asmanex] 0.24 gm IH HS 04/28/17 Montelukast Na [Singulair -] 10 mg PO HS 04/28/17 Nitroglycerin [Nitrostat] 0.4 mg SL ASDIR 04/28/17 Nystatin Powder [Nystop Topical Powder -] 15 gm TP BID 04/28/17 Oxymetazoline HCl [Afrin] 15 ml NS DAILY 04/28/17 Pantoprazole Sodium [Protonix] 40 mg PO DAILY 04/28/17 Prednisone 10 mg PO DAILY 04/28/17 Solifenacin Succinate [Vesicare -] 10 mg PO DAILY 08/14/17 Tamsulosin HCl [Flomax] 0.4 mg PO DAILY 04/28/17 Tramadol HCl [Ultram] 50 mg PO Q4H 04/28/17 Zinc Oxide 20% Topical Oint 454 gm NR TID 04/28/17 Review of Systems - Review of Systems Able to Perform ROS?: Yes Comments:: 04/28/17 18:33 CONSTITUTIONAL: No reported: Fever, Chills, Diaphoresis, Generalized Weakness, Malaise, Loss of Appetite HEENT: No reported: Rhinorrhea, Nasal Congestion, Throat Pain, Throat Swelling, Difficulty Swallowing, Mouth Swelling, Ear Pain, Eye Pain, Visual Changes CARDIOVASCULAR: No reported: Chest Pain, Syncope, Palpitations, Irregular Heart Rate, Lightheadedness, Peripheral Edema RESPIRATORY: +SOB and productive cough. No reported: Wheezing, Stridor, Hemoptysis GASTROINTESTINAL: No reported: Abdominal pain, Abdominal Distension, Nausea, Vomiting, Diarrhea, Constipation, Melena, Hematochezia GENITOURINARY: No reported: Dysuria, Frequency, Urgency, Hesitancy, Flank Pain, Genital Pain MUSCULOSKELETAL: No reported: Myalgia, Arthralgia, Joint Swelling, Back pain, Neck Pain SKIN: No reported: Rash, Itching, Pallor HEMATOLOGIC/IMMUNOLOGIC: No reported: Easy Bleeding, Easy Bruising, Lymphadenopathy, Frequent infections ENDOCRINE: No reported: Unexplained Weight Gain, Unexplained Weight Loss, Heat Intolerance , Cold Intolerance NEUROLOGIC: No reported: Headache, Focal Weakness, Paresthesias, Vertigo, Lightheadedness, Unsteady Gait, Seizure, Mental Status Changes, Incontinence PSYCHIATRIC: No reported: Anxiety, Depression <Jin Matute - Last Filed: 04/28/17 18:33> *Physical Exam - Vital Signs Last Vital Signs Temp Pulse Resp BP Pulse Ox 101.0 F H 102 H 30 H 100/48 91 L 04/28/17 13:31 04/28/17 17:16 04/28/17 17:16 04/28/17 17:16 04/28/17 17:16 - Physical Exam Comments: 04/28/17 18:33 GENERAL: The patient is awake, alert, and oriented x 2 +moderate respiratory distress HEAD: Normocephalic, atraumatic. EYES: extraocular movements intact, sclera anicteric, conjunctiva clear. ENT: Normal voice, dry mucous membranes. NECK: Normal range of motion, supple LUNGS: bibasilar rales bilaterally (worse on the left). HEART: Regular rate and rhythm, without murmur, rub or gallop. ABDOMEN: Soft, nontender, normoactive bowel sounds. No guarding, no rebound.No CVA tenderness EXTREMITIES: Normal range of motion, no edema. NEUROLOGICAL: No facial asymmetry, Normal speech. PSYCH: Normal mood, normal affect. SKIN: Warm, Dry, normal turgor. <Jin Matute - Last Filed: 04/28/17 18:33> - Vital Signs Last Vital Signs Temp Pulse Resp BP Pulse Ox 101.0 F H 98 H 18 107/61 82 L 04/28/17 13:31 04/28/17 13:31 04/28/17 13:31 04/28/17 13:31 04/28/17 13:31 <Marco Clifford - Last Filed: 04/29/17 12:22> Heart Score/ECG Review - ECG Impressions Comment:: 04/28/17 18:52 Twelve-lead EKG was performed and reviewed by me. There is normal sinus rhythm with a reate of 106 Q wave in lead 3 T wave inversion in V2/V3 <Marco Clifford - Last Filed: 04/29/17 12:22> ED Treatment Course - LABORATORY CBC & Chemistry Diagram: 04/28/17 14:23 04/28/17 14:23 - ADDITIONAL ORDERS Additional order review: Laboratory Results 04/28/17 04/28/17 04/28/17 14:55 14:23 14:23 INR PTT (Actin FS) VBG pH 7.32 POC VBG pCO2 55.4 H POC VBG pO2 26.0 L Mixed VBG HCO3 27.9 H Sodium Potassium Chloride Carbon Dioxide Anion Gap BUN Creatinine Creat Clearance w eGFR Random Glucose Lactic Acid 4.2 H* Calcium Total Bilirubin AST ALT Alkaline Phosphatase Creatine Kinase Troponin I Total Protein Albumin Urine Color Urine Appearance Urine pH Urine Protein Urine Glucose (UA) Urine Ketones Urine Blood Urine Nitrite Urine Bilirubin Urine Urobilinogen Ur Leukocyte Esterase Urine RBC Urine WBC Ur Epithelial Cells Urine Mucus Urine Yeast Blood Type O POSITIVE Antibody Screen Negative 04/28/17 04/28/17 04/28/17 14:23 14:23 14:23 INR 1.11 PTT (Actin FS) 30.7 VBG pH POC VBG pCO2 POC VBG pO2 Mixed VBG HCO3 Sodium 144 Potassium 5.1 D Chloride 106 Carbon Dioxide 28 Anion Gap 10 BUN 20 H Creatinine 0.8 Creat Clearance w eGFR > 60 Random Glucose 127 H D Lactic Acid Calcium 8.1 L Total Bilirubin 0.7 D AST 63 H D ALT 21 Alkaline Phosphatase 68 D Creatine Kinase 449 H Troponin I 8.73 H* D Total Protein 5.9 L D Albumin 2.7 L Urine Color Yellow Urine Appearance Cloudy Urine pH 5.0 D Urine Protein 1+ H Urine Glucose (UA) Negative Urine Ketones Negative Urine Blood 2+ H Urine Nitrite Negative Urine Bilirubin Negative Urine Urobilinogen Normal Ur Leukocyte Esterase 3+ H D Urine RBC 51 Urine WBC 465 Ur Epithelial Cells Rare Urine Mucus Rare Urine Yeast Many Blood Type Antibody Screen 04/28/17 14:23 RBC 3.31 L MCV 93.4 MCHC 30.6 L RDW 19.8 H D MPV 6.7 L D Neutrophils % 92.6 H Lymphocytes % 3.3 L D Monocytes % 3.7 L Eosinophils % 0.1 Basophils % 0.3 - Medications Given in the ED: ED Medications Discontinued Medications Generic Name Dose Route Start Last Admin Trade Name Freq PRN Reason Stop Dose Admin Acetaminophen 1,000 mg 04/28/17 14:17 04/28/17 15:35 Ofirmev Injection - IVPB 04/28/17 14:18 1,000 mg ONCE ONE Administration Albuterol/Ipratropium 1 amp 04/28/17 14:30 04/28/17 15:35 Duoneb - NEB 04/28/17 14:31 1 amp ONCE ONE Administration Aspirin 324 mg 04/28/17 15:41 04/28/17 16:00 Asa - PO 04/28/17 15:42 324 mg ONCE ONE Administration Cefepime HCl 2 gm 04/28/17 15:52 04/28/17 16:18 Maxipime (Restricted To Id) - IVPB 04/28/17 15:53 2 gm ONCE ONE Administration Protocol Azithromycin 500 mg/ Dextrose 250 mls @ 250 mls/hr 04/28/17 15:52 04/28/17 16: 00 IVPB 04/28/17 16:51 250 mls/hr ONCE ONE Administration Vancomycin HCl 1,250 mg/ 250 mls @ 250 mls/hr 04/28/17 15:52 04/28/17 17:15 Dextrose IVPB 04/28/17 16:51 250 mls/hr ONCE ONE Administration Protocol <Jin Matute - Last Filed: 04/28/17 18:33> - LABORATORY CBC & Chemistry Diagram: 04/29/17 05:35 04/29/17 05:35 - RADIOLOGY Radiology Studies Ordered: Category Date Time Status CHEST X-RAY PORTABLE* [RAD] Stat Radiology 04/28/17 14:04 Ordered <Marco Clifford - Last Filed: 04/29/17 12:22> Medical Decision Making - Medical Decision Making 04/28/17 14:17 89y M hx of chf, cad, copd, cva, recent pna, represents from NH for worsening cough, noted to be hypoxic to 80s on 3L of NC, is tachyneic anc coughing up dark red sputum, pt alos noted febrile suspect pna sepsis orderset obtained will give pt duoneb pt is DNR/DNI PMD Kristina A portion of this note was documented by scribe services under my direction. I have reviewed the details of the note, within reason, and agree with the documentation with the following case summary and management plan written by me 04/28/17 15:32 trop noted to be to be elvated to 8 pt denies any cp pts ekg noted for TWI in anterior leads with change in morphology of 04/28/17 15:[address] Duenas and dr. pardo will admit for further management will obtain CTA to r/o PE pt wriitten for broad spectum abx pt will be started on heparin gtt will admit to telemetry Case discussed in detail with admitting physician including history, physical exam and ancillary studies. Admitting physician has assumed care for the patient, will follow all pending diagnostics and will complete the evaluation and treatment. CRITICAL CARE DOCUMENTATION: I spent~35 minutes of Critical Care time, excluding separately billable procedures, involving high complexity decision making to assess, manipulate and support vital system function(s) to treat single or multiple vital organ system failure and/or to prevent further life threatening deterioration of the patient' s condition. 04/28/17 18:13 No PE on CTA.+bl pna <Marco Clifford - Last Filed: 04/29/17 12:22> *DC/Admit/Observation/Transfer - Attestations Scribe Attestion: 04/28/17 18:34 Documentation prepared by Jin Matute, acting as clinical laboratory medical director for Marco Clifford MD. <Jin Matute - Last Filed: 04/28/17 18:33> - Discharge Dispostion Admit: Yes <Marco Clifford - Last Filed: 04/29/17 12:22> Diagnosis at time of Disposition: NSTEMI (non-ST elevated myocardial infarction) Sepsis Qualifiers: Sepsis type: sepsis due to unspecified organism Qualified Code(s): A41.9 - Sepsis, unspecified organism
[2017-04-28] MEDS ORDERED: ACETAMINOPHEN 1000 MG/100 ML VIAL (NON FORMULARY) IVPB ONE (14:17)
[2017-04-28] MEDS ORDERED: ALBUTEROL SO4 2.5/IPRATROPIUM 0.5 INH SOL 3 ML VIAL.NEB. NEB ONE ×2 (14:30→18:54)
[2017-04-28 14:43] LABS: BASOPHIL 0.3 % (0-2.0); EOSINOPHIL 0.1 % (0-4.5); MCH 28.6 pg (25.7-33.7); MCHC 30.6 g/dl (32.0-35.9); MEAN CELL VOLUME 93.4 fl (80-96); MEAN PLT VOLUME 6.7 fl (7.5-11.1); NEUTROPHILS 92.6 % (42.8-82.8); PLATELET COUNT 235 K/MM3 (134-434); RDW 19.8 % (11.9-15.9); WHITE BLOOD COUNT 12.4 K/mm3 (4.0-10.0)
[2017-04-28 14:58] VITALS: BMI 32.4
[2017-04-28 15:06] LABS: INR 1.11 (0.82-1.09); PROTHROMBIN TIME (PATIENT) 12.2 SEC (9.98-11.88)
[2017-04-28 15:07] LABS: ALBUMIN 2.7 g/dl (3.4-5.0); ANION GAP 10 (8-16); BILIRUBIN,TOTAL 0.7 mg/dL (0.2-1.0); CALCIUM 8.1 mg/dL (8.5-10.1); CO2 28 mmol/L (21-32); CREATININE 0.8 mg/dL (0.7-1.3); GLUCOSE,RANDOM 127 mg/dL (74-106); SGOT/AST 63 U/L (15-37); SGPT/ALT 21 U/L (12-78); TOT PROT 5.9 g/dl (6.4-8.2)
[2017-04-28 15:07] LABS: VENOUS PH 7.32 (7.32-7.42)
[2017-04-28 15:09] LABS: VENOUS BLOOD GAS HCO3 27.9 meq/L (19-25)
[2017-04-28 15:09] LABS: ACTIVATED PTT 30.7 SECONDS (26.9-34.4)
[2017-04-28 15:21] LABS: ALK PHOS 68 U/L (45-117); CPK 449 IU/L (39-308)
[2017-04-28] MEDS ORDERED: ACETAMINOPHEN INJECTION 100 ML IVPB ONE (15:21)
[2017-04-28 15:26] LABS: TROPONIN I 8.73 ng/ml (0.00-0.05)
[2017-04-28] MEDS ORDERED: ASPIRIN 81 MG CHEWABLE TABLETS PO ONE (15:41)
[2017-04-28] MEDS ORDERED: CEFEPIME HCL 2 GM VIAL (RESTRICTED TO ID) IVPB ONE (15:52)
[2017-04-28] MEDS ORDERED: VANCOMYCIN 1,250 MG in DEXTROSE 5%-WATER - 250 ML IVPB ONE (15:52)
[2017-04-28] MEDS ORDERED: AZITHROMYCIN IVPB 500 MG in DEXTROSE 5%-WATER - 250 ML IVPB ONE (15:52)
[2017-04-28] MEDS ORDERED: ASPIRIN 81 MG CHEWABLE TABLETS ONE (15:57)
[2017-04-28] MEDS ORDERED: AZITHROMYCIN IVPB 250 ML IVPB ONE (15:57)
[2017-04-28] MEDS ORDERED: VANCOMYCIN 1 GRAM (PRE-DOCKED) 250 ML IVPB ONE (15:57)
[2017-04-28] MEDS ORDERED: CEFEPIME 100 ML IVPB ONE (15:58)
[2017-04-28 16:25] LABS: URINE APPEARANCE CLOUDY; URINE BILIRUBIN NEGATIVE (NEGATIVE); URINE BLOOD 2+ (NEGATIVE); URINE COLOR YELLOW; URINE GLUCOSE (UA) NEGATIVE (NEGATIVE); URINE KETONE NEGATIVE (NEGATIVE); URINE NITRITE NEGATIVE (NEGATIVE); URINE PROTEIN 1+ (NEGATIVE); URINE UROBILINOGEN NORMAL mg/dL (0.2-1.0)
[2017-04-28 16:26] LABS: URINE LEUK ESTERASE 3+ (NEGATIVE); URINE MUCUS RARE; URINE RBC 51 /hpf (0-3); URINE WBC 465 /hpf (3-5); YEAST MANY
[2017-04-28] MEDS ORDERED: ACETAMINOPHEN 325 MG TABLET (FP) PO PRN (16:39)
[2017-04-28] MEDS ORDERED: NITROGLYCERIN SUBLINGUAL 1/150 0.4 MG TAB SL PRN (16:39)
[2017-04-28] MEDS ORDERED: CHOLESTYRAMINE/SUCROSE 4 GM PACKET PO PRN (16:41)
[2017-04-28] MEDS ORDERED: HEPARIN NA (PORCINE) 5,000 UNITS/ML 1ML VIAL IVPUSH PRN ×2 (16:50)
--- NOTE | 2017-04-28 16:52 | HP ---
Admitting History and Physical - Primary Care Physician PCP: Manpreet Acevedo - Admission Chief Complaint: I don't know why I am here. History of Present Illness: Mr Oropeza is a pleasant 89 year old male who was sent from [facility] for shortness of breath with hypoxia. Mr Oropeza says that he did not want to come here because he is feeling normal. He says that he is tired but that has been present since he was discharged from the hospital. He says he has not been active at [facility] and mainly stays in bed. He denies fevers, chills, lightheadedness, passing out, abdominal pain, nausea, vomiting, diarrhea, constipation, difficulty or pain on urination, or swelling. He says he has chest pain but that it is chronic and unchanged. He says the pain has been present for years. He says he is short of breath and that it started today and he has a non-productive cough. History Source: Patient Limitations to Obtaining History: Clinical Condition - Past Medical History [employer]: Yes: CVA, TIA Cardiovascular: Yes: CAD, HTN Pulmonary: Yes: COPD Gastrointestinal: Yes: Other (HX OF PROGRESSIVE REGURGITATION FOR YEARS, PLACED ON OMEPRAZOLE BY PMD NO WORK UP EVER DONE DESPITE SYMPTOMS) Renal/: Yes: Cancer (prostate) - Past Surgical History Past Surgical History: Yes: Carotid Endarterectomy (carotid "stent" about 2 years go), Stent (carotid; denies cardiac stent) - Smoking History Smoking history: Unknown if ever smoked Have you smoked in the past 12 months: No Aproximately how many cigarettes per day: 0 If you are a former smoker, when did you quit?: over 20 years go - Alcohol/Substance Use Hx Alcohol Use: No History of Substance Use: reports: None - Social History Usual Living Arrangement: Yes: Care Home ADL: Support Services History of Recent Travel: No Home Medications - Allergies Allergies/Adverse Reactions: Allergies Allergy/AdvReac Type Severity Reaction Status Date / Time Anesthetics - Angle Type- Allergy Unknown Verified 03/20/17 17:27 Parabens [Anesthetics - Angle Type] latex Allergy Verified 03/20/17 17:27 - Home Medications Home Medications: Ambulatory Orders Aa/Hydrolyzed Collagen, Whey [Lps 15-30 Liquid] 960 ml PO DAILY 04/28/17 Acetaminophen [Tylenol] 650 mg PO QID 04/28/17 Amlodipine Besylate [Norvasc -] 5 mg PO DAILY 04/28/17 Ascorbate Calcium [Vitamin C] 500 mg PO BID 04/28/17 Atorvastatin Ca [Lipitor] 10 mg PO HS 04/28/17 Cholecalciferol (Vitamin D3) [Vitamin D3 -] 1,000 unit PO DAILY 04/28/17 Cholestyramine (with Sugar) [Cholestyramine Packet] 4 gm PO BID 04/28/17 Docusate Sodium [Colace -] 100 mg PO DAILY 04/28/17 Ferrous Sulfate [Feosol] 325 mg PO BID 04/28/17 Guaifenesin [Mucinex] 600 mg PO DAILY 04/28/17 Hydralazine HCl [Apresoline -] 25 mg PO BID 04/28/17 Isosorbide Mononitrate [Imdur -] 30 mg PO DAILY 04/28/17 Levetiracetam [Keppra -] 750 mg PO BID 04/28/17 Loratadine 10 mg PO DAILY 04/28/17 Mag Hydrox/Al Hydrox/Simeth [Mylanta *Suspension*] 30 ml PO ONCE 04/28/17 Mometasone Furoate [Asmanex] 0.24 gm IH HS 04/28/17 Montelukast Na [Singulair -] 10 mg PO HS 04/28/17 Nitroglycerin [Nitrostat] 0.4 mg SL ASDIR 04/28/17 Nystatin Powder [Nystop Topical Powder -] 15 gm TP BID 04/28/17 Oxymetazoline HCl [Afrin] 15 ml NS DAILY 04/28/17 Pantoprazole Sodium [Protonix] 40 mg PO DAILY 04/28/17 Prednisone 10 mg PO DAILY 04/28/17 Solifenacin Succinate [Vesicare -] 10 mg PO DAILY 04/28/17 Tamsulosin HCl [Flomax] 0.4 mg PO DAILY 04/28/17 Tramadol HCl [Ultram] 50 mg PO Q4H 04/28/17 Zinc Oxide 20% Topical Oint 454 gm NR TID 04/28/17 Family Disease History - Family Disease History Family History: Unremarkable (says family is known for longevity) Family Disease History: Other: Father ( in his 90s), Mother ( in her 90s ) Review of Systems Findings/Remarks: Full review of systems obtained, as per HPI and otherwise negative Physical Examination Vital Signs: Vital Signs Temperature 38.3 C H 04/28/17 13:31 Pulse Rate 104 H 04/28/17 16:20 Respiratory Rate 30 H 04/28/17 16:20 Blood Pressure 100/43 04/28/17 16:20 O2 Sat by Pulse Oximetry (%) 92 L 04/28/17 16:20 Constitutional: Yes: Well Nourished, Other (lethargic) Eyes: Yes: Conjunctiva Clear, EOM Intact, PERRL HENT: Yes: Atraumatic, Normocephalic Cardiovascular: Yes: Regular Rate and Rhythm. No: Gallop, Murmur, Rub Respiratory: Yes: Regular, Cough, On Nasal O2, Rhonchi (severe), Wheezes. No: CTA Bilaterally, Rales Gastrointestinal: Yes: Normal Bowel Sounds, Soft. No: Distention, Tenderness Extremities: Yes: WNL Edema: No Labs: CBC, BMP 04/28/17 14:23 04/28/17 14:23 Imaging - Results Chest X-ray: Report Reviewed, Image Reviewed EKG: Image Reviewed Problem List - Problems (1) NSTEMI (non-ST elevated myocardial infarction) Assessment/Plan: -patient presents with NSTEMI -cardiology aware -heparin gtt -trend troponins Code(s): I21.4 - NON-ST ELEVATION (NSTEMI) MYOCARDIAL INFARCTION (2) Acute and chronic respiratory failure with hypoxia Assessment/Plan: -? pneumonia, but not seen on chest x-ray -patient with significant breath sounds on exam -pulmonary consult -continue bronchodilators -? if could use steroids Code(s): J96.21 - ACUTE AND CHRONIC RESPIRATORY FAILURE WITH HYPOXIA (3) COPD exacerbation Assessment/Plan: -as above Code(s): J44.1 - CHRONIC OBSTRUCTIVE PULMONARY DISEASE W (ACUTE) EXACERBATION (4) Sepsis Assessment/Plan: -UA positive -also considering pneumonia with lung exam -received vancomycin and cefepime in the ED -case d/w ID who will see and asses for proper antibiotic regimen Code(s): A41.9 - SEPSIS, UNSPECIFIED ORGANISM Qualifiers: Sepsis type: sepsis due to unspecified organism Qualified Code(s): A41.9 - Sepsis, unspecified organism (5) CAD (coronary artery disease) Assessment/Plan: -now with NSTEMI -cardiology managing Code(s): I25.10 - ATHSCL HEART DISEASE OF [place] CORONARY ARTERY W/O ANG PCTRS Qualifiers: Coronary Disease-Associated Artery/Lesion type: [place] artery [place] vs. transplanted heart: [place] heart Associated angina: angina presence unspecified Qualified Code(s): I25.10 - Atherosclerotic heart disease of [place] coronary artery without angina pectoris (6) CHF (congestive heart failure) Assessment/Plan: -fluid overload not seen on chest x-ray -also with lactic acidosis -will gently hydrate, but if gets fluid overloaded will need diuresis Code(s): I50.9 - HEART FAILURE, UNSPECIFIED Qualifiers: Congestive heart failure type: unspecified congestive heart failure type Congestive heart failure chronicity: unspecified congestive heart failure chronicity Qualified Code(s): I50.9 - Heart failure, unspecified (7) CVA (cerebral vascular accident) Assessment/Plan: -continue plavix Code(s): I63.9 - CEREBRAL INFARCTION, UNSPECIFIED Qualifiers: CVA mechanism: unspecified Qualified Code(s): I63.9 - Cerebral infarction, unspecified (8) UTI (urinary tract infection) Assessment/Plan: -send urine culture -ID to see and start broad spectrum antibiotics Code(s): N39.0 - URINARY TRACT INFECTION, SITE NOT SPECIFIED Assessment/Plan 40 minutes spent in critical care time
[2017-04-28] MEDS: SODIUM CHLORIDE 1,000 ML IV SCH (17:27)
[2017-04-28] MEDS ORDERED: HEPARIN INFUSION - 500 ML IVPB ONE (17:28)
[2017-04-28] MEDS: HEPARIN - 25,000 UNIT in SODIUM CHLORIDE 495 ML IV SCH (17:32)
--- NOTE | 2017-04-28 17:43 | CONSULT ---
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 Cardio/Vascular: Yes: CAD, HTN Pulmonary: Yes: COPD Gastrointestinal: Yes: Other (HX OF PROGRESSIVE REGURGITATION FOR YEARS, PLACED ON OMEPRAZOLE BY PMD NO WORK UP EVER DONE DESPITE SYMPTOMS) Renal/: Yes: Cancer (prostate) - Past Surgical History Past Surgical History: Yes: Carotid Endarterectomy (carotid "stent" about 2 years go), Stent (carotid; denies cardiac stent) - Alcohol/Substance Use Hx Alcohol Use: No - Smoking History Smoking history: Unknown if ever smoked Have you smoked in the past 12 months: No Aproximately how many cigarettes per day: 0 If you are a former smoker, when did you quit?: over 20 years go - Social History Usual Living Arrangement: With Spouse ADL: Family Assistance History of Recent Travel: No Home Medications - Allergies Allergies/Adverse Reactions: Allergies Allergy/AdvReac Type Severity Reaction Status Date / Time Anesthetics - Angle Type- Allergy Unknown Verified 03/20/17 17:27 Parabens [Anesthetics - Angle Type] latex Allergy Verified 03/20/17 17:27 - Home Medications Home Medications: Ambulatory Orders Cholecalciferol (Vitamin D3) [Vitamin D3] 1,000 unit PO DAILY 09/30/14 Cholestyramine/Sucrose [Cholestyramine Packet] 4 gm PO BID PRN 09/30/14 Solifenacin Succinate [Vesicare] 10 mg PO DAILY 09/30/14 Oxymetazoline 0.05% Nasal Soln [Afrin -] 2 spray NS BID PRN #7 spraybtl Amlodipine Besylate [Norvasc -] 10 mg PO DAILY #30 tablet 03/19/17 Acetaminophen [Tylenol .Regular Strength -] 650 mg PO Q6H PRN #30 tablet Albuterol 2.5/Ipratropium 0.5 [Duoneb -] 1 amp NEB QIDR #30 amp 04/04/17 Atorvastatin Ca [Lipitor] 10 mg PO HS #30 tablet 04/04/17 Guaifenesin [Mucinex -] 600 mg PO BID #60 tab 04/04/17 Hydralazine HCl [Apresoline -] 25 mg PO BID #60 tablet 04/04/17 Isosorbide Mononitrate [Imdur -] 30 mg PO DAILY #30 tab.sr MDD 1 04/04/17 Levetiracetam [Keppra -] 750 mg PO BID #60 tablet 04/04/17 Loratadine 10 mg PO DAILY #30 tab 04/04/17 Mag Hydrox/Al Hydrox/Simeth [Mylanta Oral Suspension -] 30 ml PO Q6HPO #30 tab 04/04/17 Mometasone Furoate [Asmanex 220Mcg -] 1 puff IH HS #1 inhaler 04/04/17 Montelukast Na [Singulair -] 10 mg PO HS #30 tab 04/04/17 Nitroglycerin Sublingual [Nitrostat -] 0.4 mg SL Q5M PRN #60 tab 04/04/17 Nystatin Powder [Nystop Powder -] 15 gm TP BID #1 unit 04/04/17 Pantoprazole Sodium [Protonix -] 40 mg PO DAILY #30 tab 04/04/17 Prednisone [Deltasone -] 40 mg PO DAILY #3 tablet 04/04/17 Tamsulosin HCl [Flomax -] 0.4 mg PO DAILY #30 tab 04/04/17 Tramadol HCl [Ultram -] 50 mg PO Q8H PRN #60 tablet MDD 3 04/04/17 Vancomycin 1,500 mg IVPB DAILY@1400 #7 vial 04/04/17 Zinc Oxide 1 applic TP TID #30 tube 04/04/17 Physical Exam Vital Signs: Vital Signs Temperature 101.0 F H 04/28/17 13:31 Pulse Rate 102 H 04/28/17 17:16 Respiratory Rate 30 H 04/28/17 17:16 Blood Pressure 100/48 04/28/17 17:16 O2 Sat by Pulse Oximetry (%) 91 L 04/28/17 17:16
[2017-04-28] MEDS ORDERED: MAG HYDROX/AL HYDROX/SIMETH 30 ML UNIT-DOSE CUP ONE (18:55)
[2017-04-28] MEDS: MAG HYDROX/AL HYDROX/SIMETH 30 ML UNIT-DOSE CUP PO SCH (18:57)
[2017-04-28] MEDS: ALBUTEROL SO4 2.5/IPRATROPIUM 0.5 INH SOL 3 ML VIAL.NEB. NEB SCH (18:57)
[2017-04-28 20:50] LABS: ARTERIAL BLOOD GAS BASE EXCESS 0.6 meq/l (-2-2); ARTERIAL BLOOD GAS HCO3 23.7 meq/L (22-26); ARTERIAL BLOOD GAS pH 7.46 (7.35-7.45)
[2017-04-28 21:04] LABS: ALLENS TEST POSITIVE; ART PUNCT SITE RIGHT RADIAL; LPM/O2% 4LPM; PT. ON O2? YES; TYPE OF O2 NASAL O2
[2017-04-28 21:05] LABS: ARTERIAL BLOOD GAS PO2 54.1 mmHg (68-100)
[2017-04-28] MEDS ORDERED: hydrALAZINE HCL 25 MG TABLET (FP) PO SCH (22:00)
[2017-04-28] MEDS ORDERED: levETIRAcetam 500 MG TABLET (FP) PO ONE (22:03)
[2017-04-28] MEDS ORDERED: hydrALAZINE HCL 25 MG TABLET (FP) ONE (22:03)
[2017-04-28] MEDS ORDERED: MONTELUKAST NA 10 MG TABLET ONE (22:05)
[2017-04-28] MEDS ORDERED: ATORVASTATIN CA 40 MG TABLET (FP) ONE (22:05)
[2017-04-28] MEDS: levETIRAcetam 250 MG TABLET (FP) PO SCH (22:10)
[2017-04-28] MEDS: ATORVASTATIN CA 10 MG TABLET (FP) PO SCH (22:10)
[2017-04-28] MEDS: MONTELUKAST NA 10 MG TABLET PO SCH (22:10)
[2017-04-29] MEDS: ALBUTEROL SO4 2.5/IPRATROPIUM 0.5 INH SOL 3 ML VIAL.NEB. NEB SCH ×4 (00:15→17:16)
[2017-04-29 00:44] LABS: TROPONIN I 15.24 ng/ml (0.00-0.05)
[2017-04-29] MEDS: guaiFENesin 600 MG TABLET.ER (FP) PO SCH ×3 (01:22→21:50)
[2017-04-29] MEDS: ZINC OXIDE 20% TOPICAL OINTMENT 30 GM TUBE TP SCH ×4 (01:22→21:51)
[2017-04-29] MEDS: MAG HYDROX/AL HYDROX/SIMETH 30 ML UNIT-DOSE CUP PO SCH ×4 (01:22→17:16)
[2017-04-29] MEDS: MOMETASONE FUROATE 220 MCG/IH INHALER IH SCH ×2 (01:23→21:49)
[2017-04-29] MEDS: CEFEPIME 1 GM/100 ML BAG PRE-DOCKED IVPB SCH ×3 (01:25→17:16)
[2017-04-29] MEDS: SODIUM CHLORIDE 1,000 ML IV SCH ×2 (01:34→16:55)
[2017-04-29] MEDS ORDERED: CEFEPIME HCL 1 GM VIAL (RESTRICTED TO ID) IVPB SCH (02:00)
[2017-04-29] MEDS ORDERED: CHOLESTYRAMINE/ASPARTAME 4 GM PACKET PO PRN (04:37)
[2017-04-29 08:13] LABS: MCH 29.1 pg (25.7-33.7); MCHC 31.4 g/dl (32.0-35.9); MEAN CELL VOLUME 92.7 fl (80-96); MEAN PLT VOLUME 7.3 fl (7.5-11.1); PLATELET COUNT 194 K/MM3 (134-434); RDW 19.4 % (11.9-15.9)
[2017-04-29 08:24] LABS: ANION GAP 11 (8-16); CALCIUM 8.1 mg/dL (8.5-10.1); CO2 24 mmol/L (21-32); GLUCOSE,RANDOM 98 mg/dL (74-106)
[2017-04-29 08:25] LABS: CREATININE 0.7 mg/dL (0.7-1.3); PHOSPHOROUS 3.8 mg/dL (2.5-4.9)
[2017-04-29 08:39] LABS: MAGNESIUM 2.5 mg/dL (1.8-2.4)
--- NOTE | 2017-04-29 08:57 | PN ---
Progress Note, Physician Chief Complaint: Shortness of breath, respiratory distress History of Present Illness: 89M known from recent previous admission with Pneumonia. PMH: Suspected underlying CAD, S/p Carotid endarterectomy, CVA, GERD, COPD, Prostate CA, recent PNA requiring hospitalization. Now returns to ER with SOB, hypoxia. CTA negative for PE, + b/l PNA. Elevated lactic acid, fever s/w sepsis. +NSTEMI in this setting. He is SOB with cough and has also been having epigastric pain/pressure intermittently. Epigastric discomfort is chronic and usually occurs after eating, but now he has been having it more often and not related to food intake. He was started on heparin gtts initially for suspected PE, it was then continued for NSTEMI. - Current Medication List Current Medications: Active Medications Acetaminophen (Tylenol -) 650 mg PO Q6H PRN PRN Reason: FEVER OR PAIN Al Hydroxide/Mg Hydroxide (Mylanta Oral Suspension -) 30 ml PO Q6HPO [facility] Last Admin: 04/29/17 06:06 Dose: 30 ml Albuterol/Ipratropium (Duoneb -) 1 amp NEB QIDR [facility] Last Admin: 04/29/17 06:40 Dose: 1 amp Amlodipine Besylate (Norvasc -) 10 mg PO DAILY [facility] Aspirin (Asa -) 81 mg PO DAILY [facility] Atorvastatin Calcium (Lipitor -) 10 mg PO HS [facility] Last Admin: 04/28/17 22:10 Dose: 10 mg Cefepime HCl (Maxipime 1gm Ivpb Pre-Docked) 1 gm IVPB Q8H-IV [facility] Last Admin: 04/29/17 01:25 Dose: 1 gm Cholecalciferol (Vitamin D3 -) 1,000 unit PO DAILY [facility] Cholestyramine Resin (Questran Light Packet -) 4 gm PO BID PRN PRN Reason: cholestrol Guaifenesin (Mucinex -) 600 mg PO BID [facility] Last Admin: 04/29/17 01:22 Dose: 600 mg Heparin Sodium (Porcine) (Heparin -) 1,000 unit IVPUSH PRN PRN PRN Reason: Heparin Heparin Sodium (Porcine) (Heparin -) 5,000 unit IVPUSH PRN PRN PRN Reason: Heparin Hydralazine HCl (Apresoline -) 25 mg PO BID [facility] Last Admin: 04/28/17 22:10 Dose: 25 mg Sodium Chloride (Normal Saline -) 1,000 mls @ 42 mls/hr IV ASDIR [facility] Last Admin: 04/29/17 01:34 Dose: 42 mls/hr Heparin Sodium (Porcine) 25, (000 unit/ Sodium Chloride) 500 mls @ 16 mls/hr IV TITR [facility]; 800 UNIT/HR PRN Reason: Protocol Last Titration: 04/28/17 23:45 Dose: 800 unit/hr Isosorbide Mononitrate (Imdur -) 30 mg PO DAILY [facility] Levetiracetam (Keppra -) 750 mg PO BID [facility] Last Admin: 04/28/17 22:10 Dose: 750 mg Loratadine (Claritin -) 10 mg PO DAILY [facility] Mometasone Furoate (Asmanex 220mcg -) 1 puff IH HS [facility] Last Admin: 04/29/17 01:23 Dose: 1 puff Montelukast Sodium (Singulair -) 10 mg PO HS [facility] Last Admin: 04/28/17 22:10 Dose: 10 mg Multi-Ingredient Ointment (Zinc Oxide) 1 applic TP TID [facility] Last Admin: 04/29/17 06:06 Dose: 1 applic Nitroglycerin (Nitrostat -) 0.4 mg SL Q5M PRN PRN Reason: CHEST PAIN Pantoprazole Sodium (Protonix -) 40 mg PO DAILY [facility] Tamsulosin HCl (Flomax -) 0.4 mg PO DAILY [facility] - Objective Vital Signs: Vital Signs Temperature 98.0 F 04/29/17 06:00 Pulse Rate 87 04/29/17 06:00 Respiratory Rate 20 04/29/17 06:00 Blood Pressure 124/46 04/29/17 06:00 O2 Sat by Pulse Oximetry (%) 92 L 04/29/17 00:17 Constitutional: Yes: Anxious Eyes: Yes: Conjunctiva Clear Cardiovascular: Yes: Regular Rate and Rhythm Respiratory: Yes: Other (bibasilar rales and scattered rhonchi. No wheezing.) Gastrointestinal: Yes: Soft (no rebound or guarding.), Abdomen, Obese Edema: No Neurological: Yes: Alert, Oriented Labs: CBC, BMP 04/29/17 05:35 04/29/17 05:35 INR, PTT INR 1.11 (0.82-1.09) 04/28/17 14:23 Microbiology Laboratory Tests 04/28/17 04/28/17 04/28/17 14:23 14:23 17:16 WBC Hgb Hct Plt Count ABG pH ABG pCO2 at Pt Temp ABG pO2 at Pt Temp O2 Delivery Device Oxygen Flow Rate PEEP Sodium Potassium BUN Creatinine Lactic Acid 4.2 H* 3.5 H* Calcium Phosphorus Magnesium Creatine Kinase 449 H Creatine Kinase Index 11.4 H* CK-MB (CK-2) 51.334 H Troponin I 8.73 H* D 04/28/17 04/28/17 04/29/17 21:00 23:30 05:35 WBC 11.0 H Hgb 9.1 L Hct 29.0 L Plt Count 194 ABG pH 7.46 H ABG pCO2 at Pt Temp 33.6 L ABG pO2 at Pt Temp 54.1 L D O2 Delivery Device Nasal o2 Oxygen Flow Rate 4lpm PEEP 0.0 Sodium Potassium BUN Creatinine Lactic Acid Calcium Phosphorus Magnesium Creatine Kinase 439 H Creatine Kinase Index 10.3 H* CK-MB (CK-2) 45.332 H Troponin I 15.24 H* D 04/29/17 05:35 WBC Hgb Hct Plt Count ABG pH ABG pCO2 at Pt Temp ABG pO2 at Pt Temp O2 Delivery Device Oxygen Flow Rate PEEP Sodium 141 Potassium 4.6 BUN 23 H Creatinine 0.7 Lactic Acid Calcium 8.1 L Phosphorus 3.8 D Magnesium 2.5 H Creatine Kinase Creatine Kinase Index CK-MB (CK-2) Troponin I - ....Imaging EKG: Other (ST 106bpm, RBBB; when compared to ECG 03/22/17 no sig changes.) Other: Other (Echo last admission: Technically difficult study, grossly normal LV fxn TELE: reviewed, NSR. RBBB) Problem List - Problems (1) Acute and chronic respiratory failure with hypoxia Code(s): J96.21 - ACUTE AND CHRONIC RESPIRATORY FAILURE WITH HYPOXIA (2) Pneumonia Code(s): J18.9 - PNEUMONIA, UNSPECIFIED ORGANISM Qualifiers: Pneumonia type: due to unspecified organism Laterality: bilateral Lung location: lower lobe of lung Qualified Code(s): J18.9 - Pneumonia, unspecified organism (3) NSTEMI (non-ST elevated myocardial infarction) Code(s): I21.4 - NON-ST ELEVATION (NSTEMI) MYOCARDIAL INFARCTION (4) SIRS (systemic inflammatory response syndrome) Code(s): R65.10 - SIRS OF NON-INFECTIOUS ORIGIN W/O ACUTE ORGAN DYSFUNCTION (5) COPD exacerbation Code(s): J44.1 - CHRONIC OBSTRUCTIVE PULMONARY DISEASE W (ACUTE) EXACERBATION Assessment/Plan IMP: Sepsis secondary to bilateral PNA NSTEMI REC: 1. PNA/Sepsis: -seen by ID -pancultured -On IV abx -Supplimental O2 -Repeat CXR, concern for development of volume overload. May need dose of Lasix. 2. NSTEMI -Continue heparin -ASA + Plavix. Can increase Lipitor to 80mg daily. -Hold B-Kings (COPD). Agree w/ Imdur. -Repeat echo -Plan is for conservative/medical management -cont. Telemetry.
[2017-04-29] MEDS: ASPIRIN 81 MG CHEWABLE TABLETS PO SCH (09:37)
[2017-04-29] MEDS: LORATADINE 10 MG TABLET PO SCH (09:38)
[2017-04-29] MEDS: levETIRAcetam 250 MG TABLET (FP) PO SCH ×2 (09:38→21:50)
[2017-04-29] MEDS: TAMSULOSIN HCL 0.4 MG CAP.ER.24H (FP) PO SCH (09:38)
[2017-04-29] MEDS: PANTOPRAZOLE 40 MG TABLET (FP) PO SCH (09:39)
[2017-04-29] MEDS: amLODIPine BESYLATE 10 MG TABLET (FP) PO SCH (09:39)
[2017-04-29] MEDS: CHOLECALCIFEROL (VITAMIN D3) 1,000 UNIT TABLET (FP) PO SCH (09:40)
[2017-04-29] MEDS: CLOPIDOGREL BISULFATE 75 MG TABLET (FP) PO SCH (09:41)
[2017-04-29 09:48] LABS: BASOPHIL (MANUAL) 1 % (0-2.0); METAMYELOCYTE 1 % (0-2)
[2017-04-29] MEDS ORDERED: ISOSORBIDE DINITRATE 10 MG TABLET (FP) PO SCH (10:00)
[2017-04-29] MEDS ORDERED: ISOSORBIDE MONONITRATE 30 MG TAB.SR.24H (FP) PO SCH (10:00)
--- NOTE | 2017-04-29 11:10 | PN ---
Progress Note, Physician Chief Complaint: Mr Oropeza feels unchanged. He says he is still short of breath. He says his chest pain is currently resolved. No n/v. - Current Medication List Current Medications: Active Medications Acetaminophen (Tylenol -) 650 mg PO Q6H PRN PRN Reason: FEVER OR PAIN Al Hydroxide/Mg Hydroxide (Mylanta Oral Suspension -) 30 ml PO Q6HPO [facility] Last Admin: 04/29/17 06:06 Dose: 30 ml Albuterol/Ipratropium (Duoneb -) 1 amp NEB QIDR [facility] Last Admin: 04/29/17 06:40 Dose: 1 amp Amlodipine Besylate (Norvasc -) 10 mg PO DAILY [facility] Last Admin: 04/29/17 09:39 Dose: 10 mg Aspirin (Asa -) 81 mg PO DAILY [facility] Last Admin: 04/29/17 09:37 Dose: 81 mg Atorvastatin Calcium (Lipitor -) 10 mg PO HS [facility] Last Admin: 04/28/17 22:10 Dose: 10 mg Cefepime HCl (Maxipime 1gm Ivpb Pre-Docked) 1 gm IVPB Q8H-IV [facility] Last Admin: 04/29/17 09:38 Dose: 1 gm Cholecalciferol (Vitamin D3 -) 1,000 unit PO DAILY [facility] Last Admin: 04/29/17 09:40 Dose: 1,000 unit Cholestyramine Resin (Questran Light Packet -) 4 gm PO BID PRN PRN Reason: cholestrol Clopidogrel Bisulfate (Plavix -) 75 mg PO DAILY [facility] Last Admin: 04/29/17 09:41 Dose: 75 mg Guaifenesin (Mucinex -) 600 mg PO BID [facility] Last Admin: 04/29/17 09:39 Dose: 600 mg Heparin Sodium (Porcine) (Heparin -) 1,000 unit IVPUSH PRN PRN PRN Reason: Heparin Heparin Sodium (Porcine) (Heparin -) 5,000 unit IVPUSH PRN PRN PRN Reason: Heparin Sodium Chloride (Normal Saline -) 1,000 mls @ 42 mls/hr IV ASDIR [facility] Last Admin: 04/29/17 01:34 Dose: 42 mls/hr Heparin Sodium (Porcine) 25, (000 unit/ Sodium Chloride) 500 mls @ 16 mls/hr IV TITR [facility]; 800 UNIT/HR PRN Reason: Protocol Last Titration: 04/28/17 23:45 Dose: 800 unit/hr Isosorbide Mononitrate (Imdur -) 30 mg PO DAILY [facility] Last Admin: 04/29/17 09:38 Dose: 30 mg Levetiracetam (Keppra -) 750 mg PO BID [facility] Last Admin: 04/29/17 09:38 Dose: 750 mg Loratadine (Claritin -) 10 mg PO DAILY [facility] Last Admin: 04/29/17 09:38 Dose: 10 mg Methylprednisolone Sodium Succinate (Solu-Medrol -) 40 mg IVPB Q6H-IV [facility] Mometasone Furoate (Asmanex 220mcg -) 1 puff IH HS [facility] Last Admin: 04/29/17 01:23 Dose: 1 puff Montelukast Sodium (Singulair -) 10 mg PO HS [facility] Last Admin: 04/28/17 22:10 Dose: 10 mg Multi-Ingredient Ointment (Zinc Oxide) 1 applic TP TID [facility] Last Admin: 04/29/17 06:06 Dose: 1 applic Nitroglycerin (Nitrostat -) 0.4 mg SL Q5M PRN PRN Reason: CHEST PAIN Pantoprazole Sodium (Protonix -) 40 mg PO DAILY [facility] Last Admin: 04/29/17 09:39 Dose: 40 mg Tamsulosin HCl (Flomax -) 0.4 mg PO DAILY [facility] Last Admin: 04/29/17 09:38 Dose: 0.4 mg - Objective Vital Signs: Vital Signs Temperature 36.7 C 04/29/17 06:00 Pulse Rate 87 04/29/17 06:00 Respiratory Rate 20 04/29/17 06:00 Blood Pressure 124/46 04/29/17 06:00 O2 Sat by Pulse Oximetry (%) 92 L 04/29/17 00:17 Constitutional: Yes: Calm, Mild Distress Neck: Yes: Thyromegaly Cardiovascular: No: Gallop, Murmur, Rub Respiratory: Yes: Regular, On Venti-Mask, Rhonchi, Wheezes Gastrointestinal: Yes: Normal Bowel Sounds, Soft. No: Distention, Tenderness Extremities: Yes: WNL Edema: No Labs: CBC, BMP 04/29/17 05:35 04/29/17 05:35 INR, PTT INR 1.11 (0.82-1.09) 04/28/17 14:23 Problem List - Problems (1) NSTEMI (non-ST elevated myocardial infarction) Code(s): I21.4 - NON-ST ELEVATION (NSTEMI) MYOCARDIAL INFARCTION (2) Acute and chronic respiratory failure with hypoxia Code(s): J96.21 - ACUTE AND CHRONIC RESPIRATORY FAILURE WITH HYPOXIA (3) COPD exacerbation Code(s): J44.1 - CHRONIC OBSTRUCTIVE PULMONARY DISEASE W (ACUTE) EXACERBATION (4) Sepsis Code(s): A41.9 - SEPSIS, UNSPECIFIED ORGANISM Qualifiers: Sepsis type: sepsis due to unspecified organism Qualified Code(s): A41.9 - Sepsis, unspecified organism (5) CAD (coronary artery disease) Code(s): I25.10 - ATHSCL HEART DISEASE OF [place] CORONARY ARTERY W/O ANG PCTRS Qualifiers: Coronary Disease-Associated Artery/Lesion type: [place] artery [place] vs. transplanted heart: [place] heart Associated angina: angina presence unspecified Qualified Code(s): I25.10 - Atherosclerotic heart disease of [place] coronary artery without angina pectoris (6) CHF (congestive heart failure) Code(s): I50.9 - HEART FAILURE, UNSPECIFIED Qualifiers: Congestive heart failure type: unspecified congestive heart failure type Congestive heart failure chronicity: unspecified congestive heart failure chronicity Qualified Code(s): I50.9 - Heart failure, unspecified (7) CVA (cerebral vascular accident) Code(s): I63.9 - CEREBRAL INFARCTION, UNSPECIFIED Qualifiers: CVA mechanism: unspecified Qualified Code(s): I63.9 - Cerebral infarction, unspecified (8) UTI (urinary tract infection) Code(s): N39.0 - URINARY TRACT INFECTION, SITE NOT SPECIFIED Assessment/Plan (1) NSTEMI (non-ST elevated myocardial infarction) Assessment/Plan: -cardiology following -continue heparin gtt -medical management with aspirin, plavix, statin, imdur -troponin continues to increase Code(s): I21.4 - NON-ST ELEVATION (NSTEMI) MYOCARDIAL INFARCTION (2) Acute and chronic respiratory failure with hypoxia Assessment/Plan: -with worsening respiratory requirement -significant ronchi on exam -chest x-ray reviewed, not fluid overloaded -will start solumedrol for COPD exacerbation -pulmonary consulted Code(s): J96.21 - ACUTE AND CHRONIC RESPIRATORY FAILURE WITH HYPOXIA (3) COPD exacerbation Assessment/Plan: -as above Code(s): J44.1 - CHRONIC OBSTRUCTIVE PULMONARY DISEASE W (ACUTE) EXACERBATION (4) Sepsis Assessment/Plan: -suspect from UTI, do not see signs of pneumonia -however does not mean it is an atypical pneumonia considering lung exam -continue gentle hydration -continue broad spectrum antibiotics Code(s): A41.9 - SEPSIS, UNSPECIFIED ORGANISM Qualifiers: Sepsis type: sepsis due to unspecified organism Qualified Code(s): A41.9 - Sepsis, unspecified organism (5) CAD (coronary artery disease) Assessment/Plan: -now with NSTEMI -cardiology managing Code(s): I25.10 - ATHSCL HEART DISEASE OF [place] CORONARY ARTERY W/O ANG PCTRS Qualifiers: Coronary Disease-Associated Artery/Lesion type: [place] artery [place] vs. transplanted heart: [place] heart Associated angina: angina presence unspecified Qualified Code(s): I25.10 - Atherosclerotic heart disease of [place] coronary artery without angina pectoris (6) CHF (congestive heart failure) Assessment/Plan: -not in exacerbation but will need close monitoring considering he is on IVF Code(s): I50.9 - HEART FAILURE, UNSPECIFIED Qualifiers: Congestive heart failure type: unspecified congestive heart failure type Congestive heart failure chronicity: unspecified congestive heart failure chronicity Qualified Code(s): I50.9 - Heart failure, unspecified (7) CVA (cerebral vascular accident) Assessment/Plan: -continue plavix Code(s): I63.9 - CEREBRAL INFARCTION, UNSPECIFIED Qualifiers: CVA mechanism: unspecified Qualified Code(s): I63.9 - Cerebral infarction, unspecified (8) UTI (urinary tract infection) Assessment/Plan: -urine cultures sent, currently growing yeast -continue broad spectrum antibiotics and ID following Code(s): N39.0 - URINARY TRACT INFECTION, SITE NOT SPECIFIED 32 minutes spent in critical care time
[2017-04-29] MEDS: methylPREDNISolone NA SUCC 40 MG/1 ML VIAL IVPB SCH ×3 (11:40→21:24)
--- NOTE | 2017-04-29 14:20 | CON.PULM ---
Consult Consult Specialty:: PULMONARY Referred by:: Dr. Burgess Reason for Consultation:: shortness of breath - History of Present Illness Chief Complaint: shortness of breath History of Present Illness: 89yo male with h/o HTN, COPD, CAD, h/o CVA, prostate ca who was sent from the snf for worsening shortness of breath. He also reports intermittent anterior chest pain, no palpitations. No fevers, chills or sweats. +cough which is mostly nonproductive and has been wheezing. Noted to be hypoxic on nasal cannula, now on 50% ventimask. CTA chest was done in the ER to rule out PE which did not show evidence of pulmonary emboli but showing a RLL infiltrate and LLL atelectasis. Febrile in the ER to 101. - History Source History Provided By: Patient, Medical Record Limitations to Obtaining History: Clinical Condition - Past Medical History [employer]IST: Yes: CVA, TIA Cardio/Vascular: Yes: CAD, HTN Pulmonary: Yes: COPD Gastrointestinal: Yes: Other (HX OF PROGRESSIVE REGURGITATION FOR YEARS, PLACED ON OMEPRAZOLE BY PMD NO WORK UP EVER DONE DESPITE SYMPTOMS) Renal/: Yes: Cancer (prostate) - Past Surgical History Past Surgical History: Yes: Carotid Endarterectomy (carotid "stent" about 2 years go), Stent (carotid; denies cardiac stent) - Alcohol/Substance Use Hx Alcohol Use: No History of Substance Use: reports: None - Smoking History Smoking history: Unknown if ever smoked Have you smoked in the past 12 months: No Aproximately how many cigarettes per day: 0 If you are a former smoker, when did you quit?: over 20 years go - Social History Usual Living Arrangement: With Spouse ADL: Support Services History of Recent Travel: No Home Medications - Allergies Allergies/Adverse Reactions: Allergies Allergy/AdvReac Type Severity Reaction Status Date / Time Anesthetics - Angle Type- Allergy Unknown Verified 03/20/17 17:27 Parabens [Anesthetics - Angle Type] latex Allergy Verified 03/20/17 17:27 - Home Medications Home Medications: Ambulatory Orders Aa/Hydrolyzed Collagen, Whey [Lps 15-30 Liquid] 960 ml PO DAILY 04/28/17 Acetaminophen [Tylenol] 650 mg PO QID 04/28/17 Amlodipine Besylate [Norvasc -] 5 mg PO DAILY 04/28/17 Ascorbate Calcium [Vitamin C] 500 mg PO BID 04/28/17 Atorvastatin Ca [Lipitor] 10 mg PO HS 04/28/17 Cholecalciferol (Vitamin D3) [Vitamin D3 -] 1,000 unit PO DAILY 04/28/17 Cholestyramine (with Sugar) [Cholestyramine Packet] 4 gm PO BID 04/28/17 Docusate Sodium [Colace -] 100 mg PO DAILY 04/28/17 Ferrous Sulfate [Feosol] 325 mg PO BID 04/28/17 Guaifenesin [Mucinex] 600 mg PO DAILY 04/28/17 Hydralazine HCl [Apresoline -] 25 mg PO BID 04/28/17 Isosorbide Mononitrate [Imdur -] 30 mg PO DAILY 04/28/17 Levetiracetam [Keppra -] 750 mg PO BID 04/28/17 Loratadine 10 mg PO DAILY 04/28/17 Mag Hydrox/Al Hydrox/Simeth [Mylanta *Suspension*] 30 ml PO ONCE 04/28/17 Mometasone Furoate [Asmanex] 0.24 gm IH HS 04/28/17 Montelukast Na [Singulair -] 10 mg PO HS 04/28/17 Nitroglycerin [Nitrostat] 0.4 mg SL ASDIR 04/28/17 Nystatin Powder [Nystop Topical Powder -] 15 gm TP BID 04/28/17 Oxymetazoline HCl [Afrin] 15 ml NS DAILY 04/28/17 Pantoprazole Sodium [Protonix] 40 mg PO DAILY 04/28/17 Prednisone 10 mg PO DAILY 04/28/17 Solifenacin Succinate [Vesicare -] 10 mg PO DAILY 04/28/17 Tamsulosin HCl [Flomax] 0.4 mg PO DAILY 04/28/17 Tramadol HCl [Ultram] 50 mg PO Q4H 04/28/17 Zinc Oxide 20% Topical Oint 454 gm NR TID 04/28/17 Family Disease History - Family Disease History Family Disease History: Other: Father ( in his 90s), Mother ( in her 90s ) Review of Systems - Review of Systems Constitutional: denies: Chills, Fever Eyes: denies: Recent Change in Vision HENT: denies: Nasal Congestion, Throat Pain Neck: denies: Stiffness, Tenderness Cardiovascular: reports: Chest Pain, Shortness of Breath. denies: Edema, Palpitations Respiratory: reports: Cough, SOB, SOB on Exertion, Wheezing. denies: Hemoptysis Gastrointestinal: denies: Abdominal Pain, Nausea, Vomiting Genitourinary: denies: Dysuria, Hematuria Neurological: denies: Dizziness, Headache Endocrine: denies: Unexplained Weight Loss Physical Exam Vital Sings: Vital Signs Temperature 98 F 04/29/17 10:00 Pulse Rate 99 H 04/29/17 10:00 Respiratory Rate 24 04/29/17 10:00 Blood Pressure 128/73 04/29/17 10:00 O2 Sat by Pulse Oximetry (%) 90 L 04/29/17 09:00 Constitutional: Yes: Mild Distress (mildly tachypneic at rest on ventimask) Eyes: Yes: Conjunctiva Clear, EOM Intact HENT: Yes: Atraumatic, Normocephalic Neck: Yes: Supple, Trachea Midline Cardiovascular: Yes: Regular Rate and Rhythm Respiratory: Yes: Rhonchi (bilateral) ...Clubbing: No Gastrointestinal: Yes: Normal Bowel Sounds, Soft. No: Tenderness Edema: No Neurological: Yes: Alert, Oriented Labs: CBC, BMP 04/29/17 05:35 04/29/17 05:35 ABG Results ABG pH 7.46 (7.35-7.45) H 04/28/17 21:00 ABG pCO2 at Pt Temp 33.6 mmHg (35-45) L 04/28/17 21:00 ABG pO2 at Pt Temp 54.1 mmHg (68-100) L D 04/28/17 21:00 ABG HCO3 23.7 meq/L (22-26) 04/28/17 21:00 ABG O2 Sat (Measured) 87.0 % (90-98.9) L 04/28/17 21:00 ABG O2 Content 10.9 % vol (15-22) L 04/28/17 21:00 ABG Base Excess 0.6 meq/l (-2-2) 04/28/17 21:00 Imaging - Results Cat Scan: Report Reviewed, Image Reviewed (RLL infiltrate, LLL atelectasis) Problem List - Problems (1) Acute and chronic respiratory failure with hypoxia Code(s): J96.21 - ACUTE AND CHRONIC RESPIRATORY FAILURE WITH HYPOXIA (2) Pneumonia Code(s): J18.9 - PNEUMONIA, UNSPECIFIED ORGANISM Qualifiers: Pneumonia type: due to unspecified organism Laterality: bilateral Lung location: lower lobe of lung Qualified Code(s): J18.9 - Pneumonia, unspecified organism (3) COPD exacerbation Code(s): J44.1 - CHRONIC OBSTRUCTIVE PULMONARY DISEASE W (ACUTE) EXACERBATION (4) NSTEMI (non-ST elevated myocardial infarction) Code(s): I21.4 - NON-ST ELEVATION (NSTEMI) MYOCARDIAL INFARCTION (5) CAD (coronary artery disease) Code(s): I25.10 - ATHSCL HEART DISEASE OF [place] CORONARY ARTERY W/O ANG PCTRS Qualifiers: Coronary Disease-Associated Artery/Lesion type: [place] artery [place] vs. transplanted heart: [place] heart Associated angina: angina presence unspecified Qualified Code(s): I25.10 - Atherosclerotic heart disease of [place] coronary artery without angina pectoris (6) Sepsis Code(s): A41.9 - SEPSIS, UNSPECIFIED ORGANISM Qualifiers: Sepsis type: sepsis due to unspecified organism Qualified Code(s): A41.9 - Sepsis, unspecified organism (7) Lactic acidosis Code(s): E87.2 - ACIDOSIS Assessment/Plan Acute on Chronic Hypoxic Respiratory Failure Pneumonia Sepsis Lactic Acidosis Acute COPD Exacerbation CAD Acute NSTEMI - IV antibiotics - f/u cultures - agree with IV medrol - inhaled bronchodilators standing and PRN - IVF - trend lactate - trend cardiac enzymes to document peak - echocardiogram - O2 to keep SpO2 >90% - BiPAP on standby to assist in work of breathing - pt DNR/DNI - prognosis guarded Thank you for this consult Ayush Mishra MD
--- NOTE | 2017-04-29 15:10 | CONSULT ---
Consult Consult Specialty:: infectious diseases Referred by:: Reason for Consultation:: pneumonia - History of Present Illness Chief Complaint: sob History of Present Illness: 89yo male with h/o HTN, COPD, CAD, h/o CVA, prostate ca who is well known to me from previous admission was sent from the detention for worsening shortness of breath. patient has been getting the sob couple of times before. He also reports intermittent r chest pain, no palpitations. No fevers, chills or sweats. +cough which is mostly nonproductive and has been wheezing. patient is also confused though able to answer some questions Noted to be hypoxic on nasal cannula, now on 50% ventimask. CTA chest was done in the ER to rule out PE which did not show evidence of pulmonary emboli but showing a RLL infiltrate and LLL atelectasis. Febrile in the ER to 101. 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 Cardio/Vascular: Yes: CAD, HTN Pulmonary: Yes: COPD Gastrointestinal: Yes: Other (HX OF PROGRESSIVE REGURGITATION FOR YEARS, PLACED ON OMEPRAZOLE BY PMD NO WORK UP EVER DONE DESPITE SYMPTOMS) Renal/: Yes: Cancer (prostate) - Past Surgical History Past Surgical History: Yes: Carotid Endarterectomy (carotid "stent" about 2 years go), Stent (carotid; denies cardiac stent) - Alcohol/Substance Use Hx Alcohol Use: No History of Substance Use: reports: None - Smoking History Smoking history: Unknown if ever smoked Have you smoked in the past 12 months: No Aproximately how many cigarettes per day: 0 If you are a former smoker, when did you quit?: over 20 years go - Social History Usual Living Arrangement: With Spouse ADL: Support Services History of Recent Travel: No Home Medications - Allergies Allergies/Adverse Reactions: Allergies Allergy/AdvReac Type Severity Reaction Status Date / Time Anesthetics - Angle Type- Allergy Unknown Verified 03/20/17 17:27 Parabens [Anesthetics - Angle Type] latex Allergy Verified 03/20/17 17:27 - Home Medications Home Medications: Ambulatory Orders Aa/Hydrolyzed Collagen, Whey [Lps 15-30 Liquid] 960 ml PO DAILY 04/28/17 Acetaminophen [Tylenol] 650 mg PO QID 04/28/17 Amlodipine Besylate [Norvasc -] 5 mg PO DAILY 04/28/17 Ascorbate Calcium [Vitamin C] 500 mg PO BID 04/28/17 Atorvastatin Ca [Lipitor] 10 mg PO HS 04/28/17 Cholecalciferol (Vitamin D3) [Vitamin D3 -] 1,000 unit PO DAILY 04/28/17 Cholestyramine (with Sugar) [Cholestyramine Packet] 4 gm PO BID 04/28/17 Docusate Sodium [Colace -] 100 mg PO DAILY 04/28/17 Ferrous Sulfate [Feosol] 325 mg PO BID 04/28/17 Guaifenesin [Mucinex] 600 mg PO DAILY 04/28/17 Hydralazine HCl [Apresoline -] 25 mg PO BID 04/28/17 Isosorbide Mononitrate [Imdur -] 30 mg PO DAILY 04/28/17 Levetiracetam [Keppra -] 750 mg PO BID 04/28/17 Loratadine 10 mg PO DAILY 04/28/17 Mag Hydrox/Al Hydrox/Simeth [Mylanta *Suspension*] 30 ml PO ONCE 04/28/17 Mometasone Furoate [Asmanex] 0.24 gm IH HS 04/28/17 Montelukast Na [Singulair -] 10 mg PO HS 04/28/17 Nitroglycerin [Nitrostat] 0.4 mg SL ASDIR 04/28/17 Nystatin Powder [Nystop Topical Powder -] 15 gm TP BID 04/28/17 Oxymetazoline HCl [Afrin] 15 ml NS DAILY 04/28/17 Pantoprazole Sodium [Protonix] 40 mg PO DAILY 04/28/17 Prednisone 10 mg PO DAILY 04/28/17 Solifenacin Succinate [Vesicare -] 10 mg PO DAILY 04/28/17 Tamsulosin HCl [Flomax] 0.4 mg PO DAILY 04/28/17 Tramadol HCl [Ultram] 50 mg PO Q4H 04/28/17 Zinc Oxide 20% Topical Oint 454 gm NR TID 04/28/17 Family Disease History - Family Disease History Family Disease History: Other: Father ( in his 90s), Mother ( in her 90s ) Review of Systems - Review of Systems Constitutional: reports: Lethargy, Weakness Eyes: reports: No Symptoms HENT: reports: No Symptoms Neck: reports: No Symptoms Cardiovascular: reports: Chest Pain Respiratory: reports: Cough, SOB Gastrointestinal: reports: No Symptoms Genitourinary: reports: No Symptoms Musculoskeletal: reports: No Symptoms Integumentary: reports: No Symptoms Neurological: reports: Confusion Endocrine: reports: No Symptoms Hematology/Lymphatic: reports: No Symptoms Psychiatric: reports: No Symptoms Physical Exam Vital Signs: Vital Signs Temperature 98 F 04/29/17 10:00 Pulse Rate 99 H 04/29/17 10:00 Respiratory Rate 24 04/29/17 10:00 Blood Pressure 128/73 04/29/17 10:00 O2 Sat by Pulse Oximetry (%) 90 L 04/29/17 09:00 Constitutional: Yes: Calm, Mild Distress Eyes: Yes: Conjunctiva Clear HENT: Yes: Atraumatic Cardiovascular: Yes: Regular Rate and Rhythm Respiratory: Yes: On Nasal O2, Poor Air Entry, Rhonchi Gastrointestinal: Yes: Normal Bowel Sounds, Soft Musculoskeletal: Yes: Other Edema: LLE: 1+, RLE: 1+ Neurological: Yes: Alert, Confusion Psychiatric: Yes: Alert Labs: CBC, BMP 04/29/17 05:35 04/29/17 05:35 Imaging - Results Chest X-ray: Report Reviewed, Image Reviewed Cat Scan: Report Reviewed, Image Reviewed Assessment/Plan Problem List - Problems (1) Acute and chronic respiratory failure with hypoxia Code(s): J96.21 - ACUTE AND CHRONIC RESPIRATORY FAILURE WITH HYPOXIA (2) Pneumonia Code(s): J18.9 - PNEUMONIA, UNSPECIFIED ORGANISM Qualifiers: Pneumonia type: due to unspecified organism Laterality: bilateral Lung location: lower lobe of lung Qualified Code(s): J18.9 - Pneumonia, unspecified organism (3) COPD exacerbation Code(s): J44.1 - CHRONIC OBSTRUCTIVE PULMONARY DISEASE W (ACUTE) EXACERBATION (4) NSTEMI (non-ST elevated myocardial infarction) Code(s): I21.4 - NON-ST ELEVATION (NSTEMI) MYOCARDIAL INFARCTION (5) CAD (coronary artery disease) Code(s): I25.10 - ATHSCL HEART DISEASE OF [place] CORONARY ARTERY W/O ANG PCTRS Qualifiers: Coronary Disease-Associated Artery/Lesion type: [place] artery [place] vs. transplanted heart: [place] heart Associated angina: angina presence unspecified Qualified Code(s): I25.10 - Atherosclerotic heart disease of [place] coronary artery without angina pectoris (6) Sepsis Code(s): A41.9 - SEPSIS, UNSPECIFIED ORGANISM Qualifiers: Sepsis type: sepsis due to unspecified organism Qualified Code(s): A41.9 - Sepsis, unspecified organism (7) Lactic acidosis Code(s): E87.2 - ACIDOSIS patient s condition mainly due to pneumonia and resp failure and also nstemi patient also got abx vanco and cefipime plan hydration continue abx incentive shelby rest as per primary team
--- NOTE | 2017-04-29 15:18 | PN ---
Progress Note, Physician History of Present Illness: stable says he is feeling very weak on face mask still difficulty breathing - Current Medication List Current Medications: Active Medications Acetaminophen (Tylenol -) 650 mg PO Q6H PRN PRN Reason: FEVER OR PAIN Al Hydroxide/Mg Hydroxide (Mylanta Oral Suspension -) 30 ml PO Q6HPO [facility] Last Admin: 04/29/17 11:40 Dose: 30 ml Albuterol/Ipratropium (Duoneb -) 1 amp NEB QIDR [facility] Last Admin: 04/29/17 11:00 Dose: 1 amp Amlodipine Besylate (Norvasc -) 10 mg PO DAILY [facility] Last Admin: 04/29/17 09:39 Dose: 10 mg Aspirin (Asa -) 81 mg PO DAILY [facility] Last Admin: 04/29/17 09:37 Dose: 81 mg Atorvastatin Calcium (Lipitor -) 10 mg PO HS [facility] Last Admin: 04/28/17 22:10 Dose: 10 mg Cefepime HCl (Maxipime 1gm Ivpb Pre-Docked) 1 gm IVPB Q8H-IV [facility] Last Admin: 04/29/17 09:38 Dose: 1 gm Cholecalciferol (Vitamin D3 -) 1,000 unit PO DAILY [facility] Last Admin: 04/29/17 09:40 Dose: 1,000 unit Cholestyramine Resin (Questran Light Packet -) 4 gm PO BID PRN PRN Reason: cholestrol Clopidogrel Bisulfate (Plavix -) 75 mg PO DAILY [facility] Last Admin: 04/29/17 09:41 Dose: 75 mg Guaifenesin (Mucinex -) 600 mg PO BID [facility] Last Admin: 04/29/17 09:39 Dose: 600 mg Heparin Sodium (Porcine) (Heparin -) 1,000 unit IVPUSH PRN PRN PRN Reason: Heparin Heparin Sodium (Porcine) (Heparin -) 5,000 unit IVPUSH PRN PRN PRN Reason: Heparin Sodium Chloride (Normal Saline -) 1,000 mls @ 42 mls/hr IV ASDIR [facility] Last Admin: 04/29/17 01:34 Dose: 42 mls/hr Heparin Sodium (Porcine) 25, (000 unit/ Sodium Chloride) 500 mls @ 16 mls/hr IV TITR [facility]; 800 UNIT/HR PRN Reason: Protocol Last Titration: 04/28/17 23:45 Dose: 800 unit/hr Isosorbide Mononitrate (Imdur -) 30 mg PO DAILY [facility] Last Admin: 04/29/17 09:38 Dose: 30 mg Levetiracetam (Keppra -) 750 mg PO BID [facility] Last Admin: 04/29/17 09:38 Dose: 750 mg Loratadine (Claritin -) 10 mg PO DAILY [facility] Last Admin: 04/29/17 09:38 Dose: 10 mg Methylprednisolone Sodium Succinate (Solu-Medrol -) 40 mg IVPB Q6H-IV [facility] Last Admin: 04/29/17 14:03 Dose: 40 mg Mometasone Furoate (Asmanex 220mcg -) 1 puff IH [facility] Last Admin: 04/29/17 01:23 Dose: 1 puff Montelukast Sodium (Singulair -) 10 mg PO HS [facility] Last Admin: 04/28/17 22:10 Dose: 10 mg Multi-Ingredient Ointment (Zinc Oxide) 1 applic TP TID [facility] Last Admin: 04/29/17 14:04 Dose: 1 applic Nitroglycerin (Nitrostat -) 0.4 mg SL Q5M PRN PRN Reason: CHEST PAIN Pantoprazole Sodium (Protonix -) 40 mg PO DAILY [facility] Last Admin: 04/29/17 09:39 Dose: 40 mg Tamsulosin HCl (Flomax -) 0.4 mg PO DAILY [facility] Last Admin: 04/29/17 09:38 Dose: 0.4 mg - Objective Vital Signs: Vital Signs Temperature 98 F 04/29/17 10:00 Pulse Rate 99 H 04/29/17 10:00 Respiratory Rate 24 04/29/17 10:00 Blood Pressure 128/73 04/29/17 10:00 O2 Sat by Pulse Oximetry (%) 90 L 04/29/17 09:00 Constitutional: Yes: No Distress, Calm Cardiovascular: Yes: Regular Rate and Rhythm Respiratory: Yes: Regular, Rhonchi Gastrointestinal: Yes: Normal Bowel Sounds, Soft Extremities: Yes: WNL Edema: LLE: 1+, RLE: 1+ Neurological: Yes: Alert Psychiatric: Yes: Alert Labs: CBC, BMP 04/29/17 05:35 04/29/17 05:35 INR, PTT INR 1.11 (0.82-1.09) 04/28/17 14:23 Assessment/Plan Problem List - Problems (1) Acute and chronic respiratory failure with hypoxia Code(s): J96.21 - ACUTE AND CHRONIC RESPIRATORY FAILURE WITH HYPOXIA (2) Pneumonia Code(s): J18.9 - PNEUMONIA, UNSPECIFIED ORGANISM Qualifiers: Pneumonia type: due to unspecified organism Laterality: bilateral Lung location: lower lobe of lung Qualified Code(s): J18.9 - Pneumonia, unspecified organism (3) COPD exacerbation Code(s): J44.1 - CHRONIC OBSTRUCTIVE PULMONARY DISEASE W (ACUTE) EXACERBATION (4) NSTEMI (non-ST elevated myocardial infarction) Code(s): I21.4 - NON-ST ELEVATION (NSTEMI) MYOCARDIAL INFARCTION (5) CAD (coronary artery disease) Code(s): I25.10 - ATHSCL HEART DISEASE OF [place] CORONARY ARTERY W/O ANG PCTRS Qualifiers: Coronary Disease-Associated Artery/Lesion type: [place] artery [place] vs. transplanted heart: [place] heart Associated angina: angina presence unspecified Qualified Code(s): I25.10 - Atherosclerotic heart disease of [place] coronary artery without angina pectoris (6) Sepsis Code(s): A41.9 - SEPSIS, UNSPECIFIED ORGANISM Qualifiers: Sepsis type: sepsis due to unspecified organism Qualified Code(s): A41.9 - Sepsis, unspecified organism (7) Lactic acidosis Code(s): E87.2 - ACIDOSIS patient s condition mainly due to pneumonia and resp failure and also nstemi patient also got abx vanco and cefipime plan hydration continue abx incentive shelby rest as per primary team physio
[2017-04-29] MEDS: VANCOMYCIN 1,250 MG in DEXTROSE 5%-WATER - 250 ML IVPB SCH (16:39)
[2017-04-29] MEDS: HEPARIN - 25,000 UNIT in SODIUM CHLORIDE 495 ML IV SCH (16:40)
[2017-04-29] MEDS: ATORVASTATIN CA 10 MG TABLET (FP) PO SCH (21:50)
[2017-04-29] MEDS: MONTELUKAST NA 10 MG TABLET PO SCH (21:50)
[2017-04-30] MEDS: ALBUTEROL SO4 2.5/IPRATROPIUM 0.5 INH SOL 3 ML VIAL.NEB. NEB SCH ×5 (00:05→23:27)
[2017-04-30] MEDS: MAG HYDROX/AL HYDROX/SIMETH 30 ML UNIT-DOSE CUP PO SCH ×4 (00:10→17:54)
[2017-04-30] MEDS: CEFEPIME 1 GM/100 ML BAG PRE-DOCKED IVPB SCH ×3 (02:10→17:54)
[2017-04-30] MEDS: methylPREDNISolone NA SUCC 40 MG/1 ML VIAL IVPB SCH ×4 (03:32→20:56)
[2017-04-30] MEDS: ZINC OXIDE 20% TOPICAL OINTMENT 30 GM TUBE TP SCH ×3 (06:29→21:01)
[2017-04-30 07:59] LABS: MCH 29.7 pg (25.7-33.7); MCHC 32.5 g/dl (32.0-35.9); MEAN CELL VOLUME 91.5 fl (80-96); PLATELET COUNT 188 K/MM3 (134-434); RDW 19.3 % (11.9-15.9)
[2017-04-30 08:31] LABS: ANION GAP 8 (8-16); CALCIUM 7.7 mg/dL (8.5-10.1); CO2 26 mmol/L (21-32); CREATININE 0.7 mg/dL (0.7-1.3); GLUCOSE,RANDOM 153 mg/dL (74-106); MAGNESIUM 2.6 mg/dL (1.8-2.4); PHOSPHOROUS 4.6 mg/dL (2.5-4.9)
--- NOTE | 2017-04-30 09:15 | PN ---
Progress Note, Physician Chief Complaint: CXR yest no evidence of congestion TELE: NSR w/RBBB, no ventricular ectopy ECHO: grossly normal LV function, possible small pericardial effusion History of Present Illness: Slight drop in Hb Difficult to tell if he still has anginal pain: he describes epigastric pressure intermittently, lasting few seconds. Resolves spontaneously, but says it occurs mostly after coughing. - Current Medication List Current Medications: Active Medications Acetaminophen (Tylenol -) 650 mg PO Q6H PRN PRN Reason: FEVER OR PAIN Al Hydroxide/Mg Hydroxide (Mylanta Oral Suspension -) 30 ml PO Q6HPO [facility] Last Admin: 04/30/17 06:29 Dose: 30 ml Albuterol/Ipratropium (Duoneb -) 1 amp NEB QIDR [facility] Last Admin: 04/30/17 06:37 Dose: 1 amp Amlodipine Besylate (Norvasc -) 10 mg PO DAILY [facility] Last Admin: 04/29/17 09:39 Dose: 10 mg Aspirin (Asa -) 81 mg PO DAILY [facility] Last Admin: 04/29/17 09:37 Dose: 81 mg Atorvastatin Calcium (Lipitor -) 10 mg PO HS [facility] Last Admin: 04/29/17 21:50 Dose: 10 mg Cefepime HCl (Maxipime 1gm Ivpb Pre-Docked) 1 gm IVPB Q8H-IV [facility] Last Admin: 04/30/17 02:10 Dose: 1 gm Cholecalciferol (Vitamin D3 -) 1,000 unit PO DAILY [facility] Last Admin: 04/29/17 09:40 Dose: 1,000 unit Cholestyramine Resin (Questran Light Packet -) 4 gm PO BID PRN PRN Reason: cholestrol Clopidogrel Bisulfate (Plavix -) 75 mg PO DAILY [facility] Last Admin: 04/29/17 09:41 Dose: 75 mg Guaifenesin (Mucinex -) 600 mg PO BID [facility] Last Admin: 04/29/17 21:50 Dose: 600 mg Sodium Chloride (Normal Saline -) 1,000 mls @ 42 mls/hr IV ASDIR [facility] Last Admin: 04/29/17 16:55 Dose: Not Given Vancomycin HCl 1,250 mg/ (Dextrose) 250 mls @ 166.667 mls/hr IVPB DAILY@1600 [facility] PRN Reason: Protocol Last Admin: 04/29/17 16:39 Dose: 166.667 mls/hr Isosorbide Mononitrate (Imdur -) 30 mg PO DAILY [facility] Last Admin: 04/29/17 09:38 Dose: 30 mg Levetiracetam (Keppra -) 750 mg PO BID [facility] Last Admin: 04/29/17 21:50 Dose: 750 mg Loratadine (Claritin -) 10 mg PO DAILY [facility] Last Admin: 04/29/17 09:38 Dose: 10 mg Methylprednisolone Sodium Succinate (Solu-Medrol -) 40 mg IVPB Q6H-IV [facility] Last Admin: 04/30/17 03:32 Dose: 40 mg Mometasone Furoate (Asmanex 220mcg -) 1 puff IH HS [facility] Last Admin: 04/29/17 21:49 Dose: 1 puff Montelukast Sodium (Singulair -) 10 mg PO HS [facility] Last Admin: 04/29/17 21:50 Dose: 10 mg Multi-Ingredient Ointment (Zinc Oxide) 1 applic TP TID [facility] Last Admin: 04/30/17 06:29 Dose: 1 applic Nitroglycerin (Nitrostat -) 0.4 mg SL Q5M PRN PRN Reason: CHEST PAIN Pantoprazole Sodium (Protonix -) 40 mg PO DAILY [facility] Last Admin: 04/29/17 09:39 Dose: 40 mg Tamsulosin HCl (Flomax -) 0.4 mg PO DAILY [facility] Last Admin: 04/29/17 09:38 Dose: 0.4 mg - Objective Vital Signs: Vital Signs Temperature 97.9 F 04/30/17 06:00 Pulse Rate 76 04/30/17 06:00 Respiratory Rate 22 04/30/17 06:00 Blood Pressure 141/57 04/30/17 06:00 O2 Sat by Pulse Oximetry (%) 92 L 04/29/17 21:00 Constitutional: Yes: Calm Eyes: Yes: Conjunctiva Clear Cardiovascular: Yes: Regular Rate and Rhythm Respiratory: Yes: Other (scattered rhonchi) Gastrointestinal: Yes: Soft, Abdomen, Obese Edema: No Neurological: Yes: Alert Labs: CBC, BMP 04/30/17 06:00 04/30/17 06:00 INR, PTT INR 1.11 (0.82-1.09) 04/28/17 14:23 Microbiology 04/28/17 14:23 Urine - Urine Clean Catch Urine Culture - Final Yeast Like Organism 04/28/17 14:23 Blood - Peripheral Venous Blood Culture - Preliminary NO GROWTH OBTAINED AFTER 24 HOURS, INCUBATION TO CONTINUE FOR 4 DAYS. 04/28/17 14:23 Blood - Peripheral Venous Blood Culture - Preliminary NO GROWTH OBTAINED AFTER 24 HOURS, INCUBATION TO CONTINUE FOR 4 DAYS. Laboratory Tests 04/28/17 04/30/17 04/30/17 23:30 06:00 06:00 WBC 8.0 Hgb 7.7 L D Hct 23.7 L D Plt Count 188 Sodium 140 Potassium 4.5 BUN 21 H Creatinine 0.7 Magnesium 2.6 H Creatine Kinase 439 H Troponin I 15.24 H* D - ....Imaging X-ray: Image Reviewed EKG: Image Reviewed Problem List - Problems (1) Acute and chronic respiratory failure with hypoxia Code(s): J96.21 - ACUTE AND CHRONIC RESPIRATORY FAILURE WITH HYPOXIA (2) Pneumonia Code(s): J18.9 - PNEUMONIA, UNSPECIFIED ORGANISM Qualifiers: Pneumonia type: due to unspecified organism Laterality: bilateral Lung location: lower lobe of lung Qualified Code(s): J18.9 - Pneumonia, unspecified organism (3) NSTEMI (non-ST elevated myocardial infarction) Code(s): I21.4 - NON-ST ELEVATION (NSTEMI) MYOCARDIAL INFARCTION (4) SIRS (systemic inflammatory response syndrome) Code(s): R65.10 - SIRS OF NON-INFECTIOUS ORIGIN W/O ACUTE ORGAN DYSFUNCTION (5) COPD exacerbation Code(s): J44.1 - CHRONIC OBSTRUCTIVE PULMONARY DISEASE W (ACUTE) EXACERBATION Assessment/Plan IMP: Sepsis secondary to bilateral PNA NSTEMI Anemia REC: 1. PNA/Sepsis: -ID following -pancultured -On IV abx -Supplimental O2 2. NSTEMI -D/C heparin, follow H/H. -Repeat ECG -ASA + Plavix. Can increase Lipitor to 80mg daily. -Hold B-Kings (COPD). Agree w/ Imdur, to be titrated to 60mg -Repeat echo shows preserved LV funciton. -Plan is for conservative/medical management in light of advanced age, normal LV fx and no sig V-ectopy -cont. Telemetry.
[2017-04-30 09:36] LABS: ANISOCYTOSIS 1+; POLYCHROMASIA 1+
[2017-04-30] MEDS: LORATADINE 10 MG TABLET PO SCH (10:27)
[2017-04-30] MEDS: ASPIRIN 81 MG CHEWABLE TABLETS PO SCH (10:27)
[2017-04-30] MEDS: PANTOPRAZOLE 40 MG TABLET (FP) PO SCH (10:27)
[2017-04-30] MEDS: CLOPIDOGREL BISULFATE 75 MG TABLET (FP) PO SCH (10:27)
[2017-04-30] MEDS: TAMSULOSIN HCL 0.4 MG CAP.ER.24H (FP) PO SCH (10:27)
[2017-04-30] MEDS: ISOSORBIDE MONONITRATE 60 MG TAB.SR.24H (FP) PO SCH (10:27)
[2017-04-30] MEDS: amLODIPine BESYLATE 10 MG TABLET (FP) PO SCH (10:28)
[2017-04-30] MEDS: guaiFENesin 600 MG TABLET.ER (FP) PO SCH ×2 (10:28→21:00)
[2017-04-30] MEDS: CHOLECALCIFEROL (VITAMIN D3) 1,000 UNIT TABLET (FP) PO SCH (10:28)
[2017-04-30] MEDS: levETIRAcetam 250 MG TABLET (FP) PO SCH ×2 (10:28→21:00)
--- NOTE | 2017-04-30 12:44 | PN ---
Progress Note (short form) - Note Progress Note: PULMONARY Still short of breath. +nonproductive cough. No fevers. Saturating 91% on 5L nasal cannula. Last Vital Signs Temp Pulse Resp BP Pulse Ox 97.9 F 78 22 141/57 91 L 04/30/17 06:00 04/30/17 11:52 04/30/17 06:00 04/30/17 06:00 04/30/17 11:52 Gen: tachypneic with speaking Heart: RRR Lung: bilateral rhonchi Abd: soft, nontender Ext: no edema CBC, BMP 04/30/17 06:00 04/30/17 06:00 Active Medications Acetaminophen (Tylenol -) 650 mg PO Q6H PRN PRN Reason: FEVER OR PAIN Al Hydroxide/Mg Hydroxide (Mylanta Oral Suspension -) 30 ml PO Q6HPO [facility] Last Admin: 04/30/17 06:29 Dose: 30 ml Albuterol/Ipratropium (Duoneb -) 1 amp NEB QIDR [facility] Last Admin: 04/30/17 11:53 Dose: 1 amp Amlodipine Besylate (Norvasc -) 10 mg PO DAILY [facility] Last Admin: 04/30/17 10:28 Dose: 10 mg Aspirin (Asa -) 81 mg PO DAILY [facility] Last Admin: 04/30/17 10:27 Dose: 81 mg Atorvastatin Calcium (Lipitor -) 10 mg PO HS [facility] Last Admin: 04/29/17 21:50 Dose: 10 mg Cefepime HCl (Maxipime 1gm Ivpb Pre-Docked) 1 gm IVPB Q8H-IV [facility] Last Admin: 04/30/17 10:27 Dose: 1 gm Cholecalciferol (Vitamin D3 -) 1,000 unit PO DAILY [facility] Last Admin: 04/30/17 10:28 Dose: 1,000 unit Cholestyramine Resin (Questran Light Packet -) 4 gm PO BID PRN PRN Reason: cholestrol Clopidogrel Bisulfate (Plavix -) 75 mg PO DAILY [facility] Last Admin: 04/30/17 10:27 Dose: 75 mg Guaifenesin (Mucinex -) 600 mg PO BID [facility] Last Admin: 04/30/17 10:28 Dose: 600 mg Sodium Chloride (Normal Saline -) 1,000 mls @ 42 mls/hr IV ASDIR [facility] Last Admin: 04/29/17 16:55 Dose: Not Given Vancomycin HCl 1,250 mg/ (Dextrose) 250 mls @ 166.667 mls/hr IVPB DAILY@1600 [facility] PRN Reason: Protocol Last Admin: 04/29/17 16:39 Dose: 166.667 mls/hr Isosorbide Mononitrate (Imdur -) 60 mg PO DAILY [facility] Last Admin: 04/30/17 10:27 Dose: 60 mg Levetiracetam (Keppra -) 750 mg PO BID [facility] Last Admin: 04/30/17 10:28 Dose: 750 mg Loratadine (Claritin -) 10 mg PO DAILY [facility] Last Admin: 04/30/17 10:27 Dose: 10 mg Methylprednisolone Sodium Succinate (Solu-Medrol -) 40 mg IVPB Q6H-IV [facility] Last Admin: 04/30/17 10:27 Dose: 40 mg Mometasone Furoate (Asmanex 220mcg -) 1 puff IH [facility] Last Admin: 04/29/17 21:49 Dose: 1 puff Montelukast Sodium (Singulair -) 10 mg PO HS [facility] Last Admin: 04/29/17 21:50 Dose: 10 mg Multi-Ingredient Ointment (Zinc Oxide) 1 applic TP TID [facility] Last Admin: 04/30/17 06:29 Dose: 1 applic Nitroglycerin (Nitrostat -) 0.4 mg SL Q5M PRN PRN Reason: CHEST PAIN Pantoprazole Sodium (Protonix -) 40 mg PO DAILY [facility] Last Admin: 04/30/17 10:27 Dose: 40 mg Tamsulosin HCl (Flomax -) 0.4 mg PO DAILY [facility] Last Admin: 04/30/17 10:27 Dose: 0.4 mg A/P Acute on Chronic Hypoxic Respiratory Failure Pneumonia Sepsis Lactic Acidosis Acute COPD Exacerbation CAD Acute NSTEMI - continue antibiotics - f/u cultures - continue medrol at current dose - inhaled bronchodilators standing and PRN - IVF - trend cardiac enzymes to document peak - O2 to keep SpO2 >90% - BiPAP on standby to assist in work of breathing - pt DNR/DNI - prognosis guarded Problem List - Problems (1) Acute and chronic respiratory failure with hypoxia Code(s): J96.21 - ACUTE AND CHRONIC RESPIRATORY FAILURE WITH HYPOXIA (2) Pneumonia Code(s): J18.9 - PNEUMONIA, UNSPECIFIED ORGANISM Qualifiers: Pneumonia type: due to unspecified organism Laterality: bilateral Lung location: lower lobe of lung Qualified Code(s): J18.9 - Pneumonia, unspecified organism (3) COPD exacerbation Code(s): J44.1 - CHRONIC OBSTRUCTIVE PULMONARY DISEASE W (ACUTE) EXACERBATION (4) NSTEMI (non-ST elevated myocardial infarction) Code(s): I21.4 - NON-ST ELEVATION (NSTEMI) MYOCARDIAL INFARCTION (5) CAD (coronary artery disease) Code(s): I25.10 - ATHSCL HEART DISEASE OF [place] CORONARY ARTERY W/O ANG PCTRS Qualifiers: Coronary Disease-Associated Artery/Lesion type: [place] artery [place] vs. transplanted heart: [place] heart Associated angina: angina presence unspecified Qualified Code(s): I25.10 - Atherosclerotic heart disease of [place] coronary artery without angina pectoris (6) Sepsis Code(s): A41.9 - SEPSIS, UNSPECIFIED ORGANISM Qualifiers: Sepsis type: sepsis due to unspecified organism Qualified Code(s): A41.9 - Sepsis, unspecified organism (7) Lactic acidosis Code(s): E87.2 - ACIDOSIS
--- NOTE | 2017-04-30 13:57 | PN ---
Progress Note, Physician Chief Complaint: Mr Oropeza says he does not know how he feels. He is unsure if his breathing is better or worse. He says he has a slight amount of chest pain. no nausea or vomiting. - Current Medication List Current Medications: Active Medications Acetaminophen (Tylenol -) 650 mg PO Q6H PRN PRN Reason: FEVER OR PAIN Al Hydroxide/Mg Hydroxide (Mylanta Oral Suspension -) 30 ml PO Q6HPO [facility] Last Admin: 04/30/17 13:18 Dose: Not Given Albuterol/Ipratropium (Duoneb -) 1 amp NEB QIDR [facility] Last Admin: 04/30/17 11:53 Dose: 1 amp Amlodipine Besylate (Norvasc -) 10 mg PO DAILY [facility] Last Admin: 04/30/17 10:28 Dose: 10 mg Aspirin (Asa -) 81 mg PO DAILY [facility] Last Admin: 04/30/17 10:27 Dose: 81 mg Atorvastatin Calcium (Lipitor -) 10 mg PO HS [facility] Last Admin: 04/29/17 21:50 Dose: 10 mg Cefepime HCl (Maxipime 1gm Ivpb Pre-Docked) 1 gm IVPB Q8H-IV [facility] Last Admin: 04/30/17 10:27 Dose: 1 gm Cholecalciferol (Vitamin D3 -) 1,000 unit PO DAILY [facility] Last Admin: 04/30/17 10:28 Dose: 1,000 unit Cholestyramine Resin (Questran Light Packet -) 4 gm PO BID PRN PRN Reason: cholestrol Clopidogrel Bisulfate (Plavix -) 75 mg PO DAILY [facility] Last Admin: 04/30/17 10:27 Dose: 75 mg Guaifenesin (Mucinex -) 600 mg PO BID [facility] Last Admin: 04/30/17 10:28 Dose: 600 mg Sodium Chloride (Normal Saline -) 1,000 mls @ 42 mls/hr IV ASDIR [facility] Last Admin: 04/29/17 16:55 Dose: Not Given Vancomycin HCl 1,250 mg/ (Dextrose) 250 mls @ 166.667 mls/hr IVPB DAILY@1600 [facility] PRN Reason: Protocol Last Admin: 04/29/17 16:39 Dose: 166.667 mls/hr Isosorbide Mononitrate (Imdur -) 60 mg PO DAILY [facility] Last Admin: 04/30/17 10:27 Dose: 60 mg Levetiracetam (Keppra -) 750 mg PO BID [facility] Last Admin: 04/30/17 10:28 Dose: 750 mg Loratadine (Claritin -) 10 mg PO DAILY [facility] Last Admin: 04/30/17 10:27 Dose: 10 mg Methylprednisolone Sodium Succinate (Solu-Medrol -) 40 mg IVPB Q6H-IV [facility] Last Admin: 04/30/17 10:27 Dose: 40 mg Mometasone Furoate (Asmanex 220mcg -) 1 puff IH HS [facility] Last Admin: 04/29/17 21:49 Dose: 1 puff Montelukast Sodium (Singulair -) 10 mg PO HS [facility] Last Admin: 04/29/17 21:50 Dose: 10 mg Multi-Ingredient Ointment (Zinc Oxide) 1 applic TP TID [facility] Last Admin: 04/30/17 06:29 Dose: 1 applic Nitroglycerin (Nitrostat -) 0.4 mg SL Q5M PRN PRN Reason: CHEST PAIN Pantoprazole Sodium (Protonix -) 40 mg PO DAILY [facility] Last Admin: 04/30/17 10:27 Dose: 40 mg Tamsulosin HCl (Flomax -) 0.4 mg PO DAILY [facility] Last Admin: 04/30/17 10:27 Dose: 0.4 mg - Objective Vital Signs: Vital Signs Temperature 36.6 C 04/30/17 06:00 Pulse Rate 78 04/30/17 11:52 Respiratory Rate 22 04/30/17 06:00 Blood Pressure 141/57 04/30/17 06:00 O2 Sat by Pulse Oximetry (%) 91 L 04/30/17 11:52 Constitutional: Yes: Calm, Mild Distress Cardiovascular: Yes: Regular Rate and Rhythm. No: Gallop, Murmur, Rub Respiratory: Yes: Regular, On Venti-Mask, Rhonchi, Wheezes. No: CTA Bilaterally Gastrointestinal: Yes: Normal Bowel Sounds, Soft. No: Distention, Tenderness Extremities: Yes: WNL Edema: No Labs: CBC, BMP 04/30/17 06:00 04/30/17 06:00 INR, PTT INR 1.11 (0.82-1.09) 04/28/17 14:23 Problem List - Problems (1) NSTEMI (non-ST elevated myocardial infarction) Code(s): I21.4 - NON-ST ELEVATION (NSTEMI) MYOCARDIAL INFARCTION (2) Acute and chronic respiratory failure with hypoxia Code(s): J96.21 - ACUTE AND CHRONIC RESPIRATORY FAILURE WITH HYPOXIA (3) COPD exacerbation Code(s): J44.1 - CHRONIC OBSTRUCTIVE PULMONARY DISEASE W (ACUTE) EXACERBATION (4) Sepsis Code(s): A41.9 - SEPSIS, UNSPECIFIED ORGANISM Qualifiers: Sepsis type: sepsis due to unspecified organism Qualified Code(s): A41.9 - Sepsis, unspecified organism (5) CAD (coronary artery disease) Code(s): I25.10 - ATHSCL HEART DISEASE OF [place] CORONARY ARTERY W/O ANG PCTRS Qualifiers: Coronary Disease-Associated Artery/Lesion type: [place] artery [place] vs. transplanted heart: [place] heart Associated angina: angina presence unspecified Qualified Code(s): I25.10 - Atherosclerotic heart disease of [place] coronary artery without angina pectoris (6) CHF (congestive heart failure) Code(s): I50.9 - HEART FAILURE, UNSPECIFIED Qualifiers: Congestive heart failure type: unspecified congestive heart failure type Congestive heart failure chronicity: unspecified congestive heart failure chronicity Qualified Code(s): I50.9 - Heart failure, unspecified (7) CVA (cerebral vascular accident) Code(s): I63.9 - CEREBRAL INFARCTION, UNSPECIFIED Qualifiers: CVA mechanism: unspecified Qualified Code(s): I63.9 - Cerebral infarction, unspecified (8) UTI (urinary tract infection) Code(s): N39.0 - URINARY TRACT INFECTION, SITE NOT SPECIFIED Assessment/Plan (1) NSTEMI (non-ST elevated myocardial infarction) Assessment/Plan: -cardiology following -heparin gtt discontinued per cardiology -medical management with aspirin, plavix, statin, imdur -order troponins to trend Code(s): I21.4 - NON-ST ELEVATION (NSTEMI) MYOCARDIAL INFARCTION (2) Acute and chronic respiratory failure with hypoxia Assessment/Plan: -appears stable if slightly better today -but still with significant hypoxia and lung exam -possible increase in solumedrol -continue bronchodilators Code(s): J96.21 - ACUTE AND CHRONIC RESPIRATORY FAILURE WITH HYPOXIA (3) COPD exacerbation Assessment/Plan: -as above Code(s): J44.1 - CHRONIC OBSTRUCTIVE PULMONARY DISEASE W (ACUTE) EXACERBATION (4) Sepsis Assessment/Plan -continue cefepime and vancomycin -ID following Code(s): A41.9 - SEPSIS, UNSPECIFIED ORGANISM Qualifiers: Sepsis type: sepsis due to unspecified organism Qualified Code(s): A41.9 - Sepsis, unspecified organism (5) CAD (coronary artery disease) Assessment/Plan: -now with NSTEMI -cardiology managing Code(s): I25.10 - ATHSCL HEART DISEASE OF [place] CORONARY ARTERY W/O ANG PCTRS Qualifiers: Coronary Disease-Associated Artery/Lesion type: [place] artery [place] vs. transplanted heart: [place] heart Associated angina: angina presence unspecified Qualified Code(s): I25.10 - Atherosclerotic heart disease of [place] coronary artery without angina pectoris (6) CHF (congestive heart failure) Assessment/Plan: -not in exacerbation but will need close monitoring considering he is on IVF Code(s): I50.9 - HEART FAILURE, UNSPECIFIED Qualifiers: Congestive heart failure type: unspecified congestive heart failure type Congestive heart failure chronicity: unspecified congestive heart failure chronicity Qualified Code(s): I50.9 - Heart failure, unspecified (7) CVA (cerebral vascular accident) Assessment/Plan: -continue plavix Code(s): I63.9 - CEREBRAL INFARCTION, UNSPECIFIED Qualifiers: CVA mechanism: unspecified Qualified Code(s): I63.9 - Cerebral infarction, unspecified (8) UTI (urinary tract infection) Assessment/Plan: -urine cultures sent, currently growing yeast -continue broad spectrum antibiotics and ID following Code(s): N39.0 - URINARY TRACT INFECTION, SITE NOT SPECIFIED
--- NOTE | 2017-04-30 16:09 | PN ---
Progress Note, Physician History of Present Illness: much calmer breathing better though patient says he does not feel to well - Current Medication List Current Medications: Active Medications Acetaminophen (Tylenol -) 650 mg PO Q6H PRN PRN Reason: FEVER OR PAIN Al Hydroxide/Mg Hydroxide (Mylanta Oral Suspension -) 30 ml PO Q6HPO [facility] Last Admin: 04/30/17 13:18 Dose: Not Given Albuterol/Ipratropium (Duoneb -) 1 amp NEB QIDR [facility] Last Admin: 04/30/17 11:53 Dose: 1 amp Amlodipine Besylate (Norvasc -) 10 mg PO DAILY [facility] Last Admin: 04/30/17 10:28 Dose: 10 mg Aspirin (Asa -) 81 mg PO DAILY [facility] Last Admin: 04/30/17 10:27 Dose: 81 mg Atorvastatin Calcium (Lipitor -) 10 mg PO HS [facility] Last Admin: 04/29/17 21:50 Dose: 10 mg Cefepime HCl (Maxipime 1gm Ivpb Pre-Docked) 1 gm IVPB Q8H-IV [facility] Last Admin: 04/30/17 10:27 Dose: 1 gm Cholecalciferol (Vitamin D3 -) 1,000 unit PO DAILY [facility] Last Admin: 04/30/17 10:28 Dose: 1,000 unit Cholestyramine Resin (Questran Light Packet -) 4 gm PO BID PRN PRN Reason: cholestrol Clopidogrel Bisulfate (Plavix -) 75 mg PO DAILY [facility] Last Admin: 04/30/17 10:27 Dose: 75 mg Guaifenesin (Mucinex -) 600 mg PO BID [facility] Last Admin: 04/30/17 10:28 Dose: 600 mg Sodium Chloride (Normal Saline -) 1,000 mls @ 42 mls/hr IV ASDIR [facility] Last Admin: 04/29/17 16:55 Dose: Not Given Vancomycin HCl 1,250 mg/ (Dextrose) 250 mls @ 166.667 mls/hr IVPB DAILY@1600 [facility] PRN Reason: Protocol Last Admin: 04/29/17 16:39 Dose: 166.667 mls/hr Isosorbide Mononitrate (Imdur -) 60 mg PO DAILY [facility] Last Admin: 04/30/17 10:27 Dose: 60 mg Levetiracetam (Keppra -) 750 mg PO BID [facility] Last Admin: 04/30/17 10:28 Dose: 750 mg Loratadine (Claritin -) 10 mg PO DAILY [facility] Last Admin: 04/30/17 10:27 Dose: 10 mg Methylprednisolone Sodium Succinate (Solu-Medrol -) 40 mg IVPB Q6H-IV [facility] Last Admin: 04/30/17 15:04 Dose: 40 mg Mometasone Furoate (Asmanex 220mcg -) 1 puff IH HS [facility] Last Admin: 04/29/17 21:49 Dose: 1 puff Montelukast Sodium (Singulair -) 10 mg PO HS [facility] Last Admin: 04/29/17 21:50 Dose: 10 mg Multi-Ingredient Ointment (Zinc Oxide) 1 applic TP TID [facility] Last Admin: 04/30/17 15:04 Dose: 1 applic Nitroglycerin (Nitrostat -) 0.4 mg SL Q5M PRN PRN Reason: CHEST PAIN Pantoprazole Sodium (Protonix -) 40 mg PO DAILY [facility] Last Admin: 04/30/17 10:27 Dose: 40 mg Tamsulosin HCl (Flomax -) 0.4 mg PO DAILY [facility] Last Admin: 04/30/17 10:27 Dose: 0.4 mg - Objective Vital Signs: Vital Signs Temperature 98.0 F 04/30/17 15:40 Pulse Rate 80 04/30/17 15:40 Respiratory Rate 22 04/30/17 10:00 Blood Pressure 106/54 04/30/17 15:40 O2 Sat by Pulse Oximetry (%) 91 L 04/30/17 11:52 Constitutional: Yes: No Distress, Calm Cardiovascular: Yes: S1, S2 Respiratory: Yes: On Nasal O2, Poor Air Entry, Rhonchi Gastrointestinal: Yes: Normal Bowel Sounds, Soft Musculoskeletal: Yes: WNL Extremities: Yes: WNL Neurological: Yes: Alert, Other Psychiatric: Yes: Other Labs: CBC, BMP 04/30/17 06:00 04/30/17 06:00 INR, PTT INR 1.11 (0.82-1.09) 04/28/17 14:23 Assessment/Plan Problem List - Problems (1) Acute and chronic respiratory failure with hypoxia Code(s): J96.21 - ACUTE AND CHRONIC RESPIRATORY FAILURE WITH HYPOXIA (2) Pneumonia Code(s): J18.9 - PNEUMONIA, UNSPECIFIED ORGANISM Qualifiers: Pneumonia type: due to unspecified organism Laterality: bilateral Lung location: lower lobe of lung Qualified Code(s): J18.9 - Pneumonia, unspecified organism (3) COPD exacerbation Code(s): J44.1 - CHRONIC OBSTRUCTIVE PULMONARY DISEASE W (ACUTE) EXACERBATION (4) NSTEMI (non-ST elevated myocardial infarction) Code(s): I21.4 - NON-ST ELEVATION (NSTEMI) MYOCARDIAL INFARCTION (5) CAD (coronary artery disease) Code(s): I25.10 - ATHSCL HEART DISEASE OF [place] CORONARY ARTERY W/O ANG PCTRS Qualifiers: Coronary Disease-Associated Artery/Lesion type: [place] artery [place] vs. transplanted heart: [place] heart Associated angina: angina presence unspecified Qualified Code(s): I25.10 - Atherosclerotic heart disease of [place] coronary artery without angina pectoris (6) Sepsis Code(s): A41.9 - SEPSIS, UNSPECIFIED ORGANISM Qualifiers: Sepsis type: sepsis due to unspecified organism Qualified Code(s): A41.9 - Sepsis, unspecified organism (7) Lactic acidosis Code(s): E87.2 - ACIDOSIS patient s condition mainly due to pneumonia and resp failure and also nstemi patient also got abx vanco and cefipime plan hydration continue abx incentive [place] rest as per primary team physio
--- NOTE | 2017-04-30 16:47 | EKG ---
Test Reason : Blood Pressure : / mmHG Vent. Rate : 106 BPM Atrial Rate : 106 BPM P-R Int : 192 ms QRS Dur : 132 ms QT Int : 362 ms P-R-T Axes : 000 -11 014 degrees QTc Int : 480 ms SINUS TACHYCARDIA RIGHT BUNDLE BRANCH BLOCK ABNORMAL ECG WHEN COMPARED WITH ECG OF 22-MAR-2017 18:18, [place] INTERVAL HAS DECREASED QRS VOLTAGE HAS DECREASED Confirmed by RADHA SOTO MD ([id number]) on 04/30/2017 4:46:56 PM Referred By: Confirmed By:RADHA SOTO MD
[2017-04-30] MEDS: VANCOMYCIN 1,250 MG in DEXTROSE 5%-WATER - 250 ML IVPB SCH (17:00)
[2017-04-30] MEDS: SODIUM CHLORIDE 1,000 ML IV SCH (17:54)
[2017-04-30] MEDS: ATORVASTATIN CA 10 MG TABLET (FP) PO SCH (21:01)
[2017-04-30] MEDS: MOMETASONE FUROATE 220 MCG/IH INHALER IH SCH (21:01)
[2017-04-30] MEDS: MONTELUKAST NA 10 MG TABLET PO SCH (21:01)
[2017-05-01] MEDS: CEFEPIME 1 GM/100 ML BAG PRE-DOCKED IVPB SCH ×3 (01:31→18:32)
[2017-05-01] MEDS: MAG HYDROX/AL HYDROX/SIMETH 30 ML UNIT-DOSE CUP PO SCH ×5 (01:31→23:06)
[2017-05-01] MEDS: methylPREDNISolone NA SUCC 40 MG/1 ML VIAL IVPB SCH ×4 (03:39→21:59)
[2017-05-01] MEDS: ZINC OXIDE 20% TOPICAL OINTMENT 30 GM TUBE TP SCH ×3 (06:23→22:00)
[2017-05-01] MEDS: ALBUTEROL SO4 2.5/IPRATROPIUM 0.5 INH SOL 3 ML VIAL.NEB. NEB SCH ×4 (06:59→23:21)
[2017-05-01 07:44] LABS: ANION GAP 10 (8-16); CALCIUM 7.9 mg/dL (8.5-10.1); CO2 25 mmol/L (21-32); CREATININE 0.5 mg/dL (0.7-1.3); GLUCOSE,RANDOM 155 mg/dL (74-106); MAGNESIUM 2.6 mg/dL (1.8-2.4); PHOSPHOROUS 3.2 mg/dL (2.5-4.9)
[2017-05-01 08:04] LABS: BASOPHIL 0.1 % (0-2.0); MCH 30.2 pg (25.7-33.7); MCHC 32.9 g/dl (32.0-35.9); MEAN CELL VOLUME 91.6 fl (80-96); MEAN PLT VOLUME 7.2 fl (7.5-11.1); NEUTROPHILS 91.9 % (42.8-82.8); PLATELET COUNT 207 K/MM3 (134-434); RDW 19.2 % (11.9-15.9); WHITE BLOOD COUNT 8.5 K/mm3 (4.0-10.0)
--- NOTE | 2017-05-01 08:37 | PN ---
Progress Note, Physician Chief Complaint: comfortable No distress History of Present Illness: denies chest pain TELE: NSR, artifact. No V-ectopy - Current Medication List Current Medications: Active Medications Acetaminophen (Tylenol -) 650 mg PO Q6H PRN PRN Reason: FEVER OR PAIN Al Hydroxide/Mg Hydroxide (Mylanta Oral Suspension -) 30 ml PO Q6HPO [facility] Last Admin: 05/01/17 06:23 Dose: 30 ml Albuterol/Ipratropium (Duoneb -) 1 amp NEB QIDR [facility] Last Admin: 05/01/17 06:59 Dose: 1 amp Amlodipine Besylate (Norvasc -) 10 mg PO DAILY [facility] Last Admin: 04/30/17 10:28 Dose: 10 mg Aspirin (Asa -) 81 mg PO DAILY [facility] Last Admin: 04/30/17 10:27 Dose: 81 mg Atorvastatin Calcium (Lipitor -) 10 mg PO HS [facility] Last Admin: 04/30/17 21:01 Dose: 10 mg Cefepime HCl (Maxipime 1gm Ivpb Pre-Docked) 1 gm IVPB Q8H-IV [facility] Last Admin: 05/01/17 01:31 Dose: 1 gm Cholecalciferol (Vitamin D3 -) 1,000 unit PO DAILY [facility] Last Admin: 04/30/17 10:28 Dose: 1,000 unit Cholestyramine Resin (Questran Light Packet -) 4 gm PO BID PRN PRN Reason: cholestrol Clopidogrel Bisulfate (Plavix -) 75 mg PO DAILY [facility] Last Admin: 04/30/17 10:27 Dose: 75 mg Guaifenesin (Mucinex -) 600 mg PO BID [facility] Last Admin: 04/30/17 21:00 Dose: 600 mg Sodium Chloride (Normal Saline -) 1,000 mls @ 42 mls/hr IV ASDIR [facility] Last Admin: 04/30/17 17:54 Dose: 42 mls/hr Vancomycin HCl 1,250 mg/ (Dextrose) 250 mls @ 166.667 mls/hr IVPB DAILY@1600 [facility] PRN Reason: Protocol Last Admin: 04/30/17 17:00 Dose: 166.667 mls/hr Isosorbide Mononitrate (Imdur -) 60 mg PO DAILY [facility] Last Admin: 04/30/17 10:27 Dose: 60 mg Levetiracetam (Keppra -) 750 mg PO BID [facility] Last Admin: 04/30/17 21:00 Dose: 750 mg Loratadine (Claritin -) 10 mg PO DAILY [facility] Last Admin: 04/30/17 10:27 Dose: 10 mg Methylprednisolone Sodium Succinate (Solu-Medrol -) 40 mg IVPB Q6H-IV [facility] Last Admin: 05/01/17 03:39 Dose: 40 mg Mometasone Furoate (Asmanex 220mcg -) 1 puff IH HS [facility] Last Admin: 04/30/17 21:01 Dose: 1 puff Montelukast Sodium (Singulair -) 10 mg PO HS [facility] Last Admin: 04/30/17 21:01 Dose: 10 mg Multi-Ingredient Ointment (Zinc Oxide) 1 applic TP TID [facility] Last Admin: 05/01/17 06:23 Dose: 1 applic Nitroglycerin (Nitrostat -) 0.4 mg SL Q5M PRN PRN Reason: CHEST PAIN Pantoprazole Sodium (Protonix -) 40 mg PO DAILY [facility] Last Admin: 04/30/17 10:27 Dose: 40 mg Tamsulosin HCl (Flomax -) 0.4 mg PO DAILY [facility] Last Admin: 04/30/17 10:27 Dose: 0.4 mg - Objective Vital Signs: Vital Signs Temperature 98.3 F 05/01/17 05:48 Pulse Rate 72 05/01/17 05:48 Respiratory Rate 20 05/01/17 05:48 Blood Pressure 129/50 05/01/17 05:48 O2 Sat by Pulse Oximetry (%) 93 L 04/30/17 21:00 Constitutional: Yes: Calm Cardiovascular: Yes: Regular Rate and Rhythm Respiratory: Yes: CTA Bilaterally Gastrointestinal: Yes: Soft Edema: No Neurological: Yes: Alert Labs: CBC, BMP 05/01/17 05:35 05/01/17 05:35 INR, PTT INR 1.11 (0.82-1.09) 04/28/17 14:23 Laboratory Tests 04/28/17 04/30/17 05/01/17 23:30 16:00 05:35 WBC 8.5 Hgb 8.2 L Plt Count 207 Sodium Potassium Creatinine Troponin I 15.24 H* D 3.77 H* D 05/01/17 05:35 WBC Hgb Plt Count Sodium 141 Potassium 4.3 Creatinine 0.5 L D Troponin I - ....Imaging EKG: Image Reviewed Problem List - Problems (1) Acute and chronic respiratory failure with hypoxia Code(s): J96.21 - ACUTE AND CHRONIC RESPIRATORY FAILURE WITH HYPOXIA (2) Pneumonia Code(s): J18.9 - PNEUMONIA, UNSPECIFIED ORGANISM Qualifiers: Pneumonia type: due to unspecified organism Laterality: bilateral Lung location: lower lobe of lung Qualified Code(s): J18.9 - Pneumonia, unspecified organism (3) NSTEMI (non-ST elevated myocardial infarction) Code(s): I21.4 - NON-ST ELEVATION (NSTEMI) MYOCARDIAL INFARCTION (4) SIRS (systemic inflammatory response syndrome) Code(s): R65.10 - SIRS OF NON-INFECTIOUS ORIGIN W/O ACUTE ORGAN DYSFUNCTION (5) COPD exacerbation Code(s): J44.1 - CHRONIC OBSTRUCTIVE PULMONARY DISEASE W (ACUTE) EXACERBATION Assessment/Plan IMP: Sepsis secondary to bilateral PNA NSTEMI Anemia REC: 1. PNA/Sepsis: -ID following -pancultured -On IV abx -Supplimental O2 2. NSTEMI - heparin discontinued, follow H/H. Stable today -ASA + Plavix. Can increase Lipitor to 80mg daily. -Hold B-Kings (COPD). Agree w/ Imdur, to be titrated to 60mg -Repeat echo shows preserved LV funciton. -Plan is for conservative/medical management in light of advanced age, normal LV fx and no sig V-ectopy -cont. Telemetry.
[2017-05-01 08:58] LABS: TROPONIN I 3.22 ng/ml (0.00-0.05)
[2017-05-01] MEDS: PANTOPRAZOLE 40 MG TABLET (FP) PO SCH (10:51)
[2017-05-01] MEDS: amLODIPine BESYLATE 10 MG TABLET (FP) PO SCH (10:51)
[2017-05-01] MEDS: CLOPIDOGREL BISULFATE 75 MG TABLET (FP) PO SCH (10:51)
[2017-05-01] MEDS: LORATADINE 10 MG TABLET PO SCH (10:51)
[2017-05-01] MEDS: levETIRAcetam 250 MG TABLET (FP) PO SCH ×2 (10:51→21:59)
[2017-05-01] MEDS: guaiFENesin 600 MG TABLET.ER (FP) PO SCH ×2 (10:51→21:59)
[2017-05-01] MEDS: CHOLECALCIFEROL (VITAMIN D3) 1,000 UNIT TABLET (FP) PO SCH (10:51)
[2017-05-01] MEDS: ISOSORBIDE MONONITRATE 60 MG TAB.SR.24H (FP) PO SCH (10:51)
[2017-05-01] MEDS: ASPIRIN 81 MG CHEWABLE TABLETS PO SCH (10:51)
[2017-05-01] MEDS: TAMSULOSIN HCL 0.4 MG CAP.ER.24H (FP) PO SCH (10:51)
--- NOTE | 2017-05-01 12:56 | PN ---
Progress Note (short form) - Note Progress Note: PULMONARY Still short of breath but breathing slightly improved. +nonproductive cough but no wheezing. No fevers. Back on 50% ventimask. Last Vital Signs Temp Pulse Resp BP Pulse Ox 98.3 F 80 20 129/50 92 L 05/01/17 05:48 05/01/17 12:13 05/01/17 05:48 05/01/17 05:48 05/01/17 12:13 Gen: tachypneic with speaking Heart: RRR Lung: bilateral rhonchi Abd: soft, nontender Ext: no edema CBC, BMP 05/01/17 05:35 05/01/17 05:35 Active Medications Acetaminophen (Tylenol -) 650 mg PO Q6H PRN PRN Reason: FEVER OR PAIN Al Hydroxide/Mg Hydroxide (Mylanta Oral Suspension -) 30 ml PO Q6HPO [facility] Last Admin: 05/01/17 06:23 Dose: 30 ml Albuterol/Ipratropium (Duoneb -) 1 amp NEB QIDR [facility] Last Admin: 05/01/17 12:14 Dose: 1 amp Amlodipine Besylate (Norvasc -) 10 mg PO DAILY [facility] Last Admin: 05/01/17 10:51 Dose: 10 mg Aspirin (Asa -) 81 mg PO DAILY [facility] Last Admin: 05/01/17 10:51 Dose: 81 mg Atorvastatin Calcium (Lipitor -) 10 mg PO HS [facility] Last Admin: 04/30/17 21:01 Dose: 10 mg Cefepime HCl (Maxipime 1gm Ivpb Pre-Docked) 1 gm IVPB Q8H-IV [facility] Last Admin: 05/01/17 10:50 Dose: 1 gm Cholecalciferol (Vitamin D3 -) 1,000 unit PO DAILY [facility] Last Admin: 05/01/17 10:51 Dose: 1,000 unit Cholestyramine Resin (Questran Light Packet -) 4 gm PO BID PRN PRN Reason: cholestrol Clopidogrel Bisulfate (Plavix -) 75 mg PO DAILY [facility] Last Admin: 05/01/17 10:51 Dose: 75 mg Guaifenesin (Mucinex -) 600 mg PO BID [facility] Last Admin: 05/01/17 10:51 Dose: 600 mg Sodium Chloride (Normal Saline -) 1,000 mls @ 42 mls/hr IV ASDIR [facility] Last Admin: 04/30/17 17:54 Dose: 42 mls/hr Vancomycin HCl 1,250 mg/ (Dextrose) 250 mls @ 166.667 mls/hr IVPB DAILY@1600 [facility] PRN Reason: Protocol Last Admin: 04/30/17 17:00 Dose: 166.667 mls/hr Isosorbide Mononitrate (Imdur -) 60 mg PO DAILY [facility] Last Admin: 05/01/17 10:51 Dose: 60 mg Levetiracetam (Keppra -) 750 mg PO BID [facility] Last Admin: 05/01/17 10:51 Dose: 750 mg Loratadine (Claritin -) 10 mg PO DAILY [facility] Last Admin: 05/01/17 10:51 Dose: 10 mg Methylprednisolone Sodium Succinate (Solu-Medrol -) 40 mg IVPB Q6H-IV [facility] Last Admin: 05/01/17 10:51 Dose: 40 mg Mometasone Furoate (Asmanex 220mcg -) 1 puff IH [facility] Last Admin: 04/30/17 21:01 Dose: 1 puff Montelukast Sodium (Singulair -) 10 mg PO HS [facility] Last Admin: 04/30/17 21:01 Dose: 10 mg Multi-Ingredient Ointment (Zinc Oxide) 1 applic TP TID [facility] Last Admin: 05/01/17 06:23 Dose: 1 applic Nitroglycerin (Nitrostat -) 0.4 mg SL Q5M PRN PRN Reason: CHEST PAIN Pantoprazole Sodium (Protonix -) 40 mg PO DAILY [facility] Last Admin: 05/01/17 10:51 Dose: 40 mg Tamsulosin HCl (Flomax -) 0.4 mg PO DAILY [facility] Last Admin: 05/01/17 10:51 Dose: 0.4 mg A/P Acute on Chronic Hypoxic Respiratory Failure Pneumonia Sepsis Lactic Acidosis Acute COPD Exacerbation CAD Acute NSTEMI - continue antibiotics - continue medrol at current dose - inhaled bronchodilators standing and PRN - IVF - O2 to keep SpO2 >90% - BiPAP on standby to assist in work of breathing - pt DNR/DNI - prognosis guarded Problem List - Problems (1) Acute and chronic respiratory failure with hypoxia Code(s): J96.21 - ACUTE AND CHRONIC RESPIRATORY FAILURE WITH HYPOXIA (2) Pneumonia Code(s): J18.9 - PNEUMONIA, UNSPECIFIED ORGANISM Qualifiers: Pneumonia type: due to unspecified organism Laterality: bilateral Lung location: lower lobe of lung Qualified Code(s): J18.9 - Pneumonia, unspecified organism (3) COPD exacerbation Code(s): J44.1 - CHRONIC OBSTRUCTIVE PULMONARY DISEASE W (ACUTE) EXACERBATION (4) NSTEMI (non-ST elevated myocardial infarction) Code(s): I21.4 - NON-ST ELEVATION (NSTEMI) MYOCARDIAL INFARCTION (5) CAD (coronary artery disease) Code(s): I25.10 - ATHSCL HEART DISEASE OF [place] CORONARY ARTERY W/O ANG PCTRS Qualifiers: Coronary Disease-Associated Artery/Lesion type: [place] artery [place] vs. transplanted heart: [place] heart Associated angina: angina presence unspecified Qualified Code(s): I25.10 - Atherosclerotic heart disease of [place] coronary artery without angina pectoris (6) Sepsis Code(s): A41.9 - SEPSIS, UNSPECIFIED ORGANISM Qualifiers: Sepsis type: sepsis due to unspecified organism Qualified Code(s): A41.9 - Sepsis, unspecified organism (7) Lactic acidosis Code(s): E87.2 - ACIDOSIS
--- NOTE | 2017-05-01 14:02 | PN ---
Progress Note, Physician Chief Complaint: Mr Oropeza says he feels better today. Says his breathing is improving. No cp or n/v. - Current Medication List Current Medications: Active Medications Acetaminophen (Tylenol -) 650 mg PO Q6H PRN PRN Reason: FEVER OR PAIN Al Hydroxide/Mg Hydroxide (Mylanta Oral Suspension -) 30 ml PO Q6HPO [facility] Last Admin: 05/01/17 06:23 Dose: 30 ml Albuterol/Ipratropium (Duoneb -) 1 amp NEB QIDR [facility] Last Admin: 05/01/17 12:14 Dose: 1 amp Amlodipine Besylate (Norvasc -) 10 mg PO DAILY [facility] Last Admin: 05/01/17 10:51 Dose: 10 mg Aspirin (Asa -) 81 mg PO DAILY [facility] Last Admin: 05/01/17 10:51 Dose: 81 mg Atorvastatin Calcium (Lipitor -) 10 mg PO HS [facility] Last Admin: 04/30/17 21:01 Dose: 10 mg Cefepime HCl (Maxipime 1gm Ivpb Pre-Docked) 1 gm IVPB Q8H-IV [facility] Last Admin: 05/01/17 10:50 Dose: 1 gm Cholecalciferol (Vitamin D3 -) 1,000 unit PO DAILY [facility] Last Admin: 05/01/17 10:51 Dose: 1,000 unit Cholestyramine Resin (Questran Light Packet -) 4 gm PO BID PRN PRN Reason: cholestrol Clopidogrel Bisulfate (Plavix -) 75 mg PO DAILY [facility] Last Admin: 05/01/17 10:51 Dose: 75 mg Guaifenesin (Mucinex -) 600 mg PO BID [facility] Last Admin: 05/01/17 10:51 Dose: 600 mg Sodium Chloride (Normal Saline -) 1,000 mls @ 42 mls/hr IV ASDIR [facility] Last Admin: 04/30/17 17:54 Dose: 42 mls/hr Vancomycin HCl 1,250 mg/ (Dextrose) 250 mls @ 166.667 mls/hr IVPB DAILY@1600 [facility] PRN Reason: Protocol Last Admin: 04/30/17 17:00 Dose: 166.667 mls/hr Isosorbide Mononitrate (Imdur -) 60 mg PO DAILY [facility] Last Admin: 05/01/17 10:51 Dose: 60 mg Levetiracetam (Keppra -) 750 mg PO BID [facility] Last Admin: 05/01/17 10:51 Dose: 750 mg Loratadine (Claritin -) 10 mg PO DAILY [facility] Last Admin: 05/01/17 10:51 Dose: 10 mg Methylprednisolone Sodium Succinate (Solu-Medrol -) 40 mg IVPB Q6H-IV [facility] Last Admin: 05/01/17 10:51 Dose: 40 mg Mometasone Furoate (Asmanex 220mcg -) 1 puff IH HS [facility] Last Admin: 04/30/17 21:01 Dose: 1 puff Montelukast Sodium (Singulair -) 10 mg PO HS [facility] Last Admin: 04/30/17 21:01 Dose: 10 mg Multi-Ingredient Ointment (Zinc Oxide) 1 applic TP TID [facility] Last Admin: 05/01/17 06:23 Dose: 1 applic Nitroglycerin (Nitrostat -) 0.4 mg SL Q5M PRN PRN Reason: CHEST PAIN Pantoprazole Sodium (Protonix -) 40 mg PO DAILY [facility] Last Admin: 05/01/17 10:51 Dose: 40 mg Tamsulosin HCl (Flomax -) 0.4 mg PO DAILY [facility] Last Admin: 05/01/17 10:51 Dose: 0.4 mg - Objective Vital Signs: Vital Signs Temperature 36.8 C 05/01/17 05:48 Pulse Rate 80 05/01/17 12:13 Respiratory Rate 20 05/01/17 05:48 Blood Pressure 129/50 05/01/17 05:48 O2 Sat by Pulse Oximetry (%) 92 L 05/01/17 12:13 Constitutional: Yes: Well Nourished, No Distress, Calm Cardiovascular: Yes: Regular Rate and Rhythm. No: Gallop, Murmur, Rub Respiratory: Yes: Regular, On Venti-Mask, Rhonchi (much improved). No: Rales, Wheezes Gastrointestinal: Yes: Normal Bowel Sounds, Soft. No: Distention, Tenderness Extremities: Yes: WNL Edema: No Labs: CBC, BMP 05/01/17 05:35 05/01/17 05:35 INR, PTT INR 1.11 (0.82-1.09) 04/28/17 14:23 Problem List - Problems (1) NSTEMI (non-ST elevated myocardial infarction) Code(s): I21.4 - NON-ST ELEVATION (NSTEMI) MYOCARDIAL INFARCTION (2) Acute and chronic respiratory failure with hypoxia Code(s): J96.21 - ACUTE AND CHRONIC RESPIRATORY FAILURE WITH HYPOXIA (3) COPD exacerbation Code(s): J44.1 - CHRONIC OBSTRUCTIVE PULMONARY DISEASE W (ACUTE) EXACERBATION (4) Sepsis Code(s): A41.9 - SEPSIS, UNSPECIFIED ORGANISM Qualifiers: Sepsis type: sepsis due to unspecified organism Qualified Code(s): A41.9 - Sepsis, unspecified organism (5) CAD (coronary artery disease) Code(s): I25.10 - ATHSCL HEART DISEASE OF [place] CORONARY ARTERY W/O ANG PCTRS Qualifiers: Coronary Disease-Associated Artery/Lesion type: [place] artery [place] vs. transplanted heart: [place] heart Associated angina: angina presence unspecified Qualified Code(s): I25.10 - Atherosclerotic heart disease of [place] coronary artery without angina pectoris (6) CHF (congestive heart failure) Code(s): I50.9 - HEART FAILURE, UNSPECIFIED Qualifiers: Congestive heart failure type: unspecified congestive heart failure type Congestive heart failure chronicity: unspecified congestive heart failure chronicity Qualified Code(s): I50.9 - Heart failure, unspecified (7) CVA (cerebral vascular accident) Code(s): I63.9 - CEREBRAL INFARCTION, UNSPECIFIED Qualifiers: CVA mechanism: unspecified Qualified Code(s): I63.9 - Cerebral infarction, unspecified (8) UTI (urinary tract infection) Code(s): N39.0 - URINARY TRACT INFECTION, SITE NOT SPECIFIED Assessment/Plan (1) NSTEMI (non-ST elevated myocardial infarction) Assessment/Plan: -cardiology following -heparin gtt discontinued per cardiology -medical management with aspirin, plavix, statin, imdur -troponins decreasing Code(s): I21.4 - NON-ST ELEVATION (NSTEMI) MYOCARDIAL INFARCTION (2) Acute and chronic respiratory failure with hypoxia Assessment/Plan: -patient improving -continue solumedrol per pulmonary -continue bronchodilators Code(s): J96.21 - ACUTE AND CHRONIC RESPIRATORY FAILURE WITH HYPOXIA (3) COPD exacerbation Assessment/Plan: -as above Code(s): J44.1 - CHRONIC OBSTRUCTIVE PULMONARY DISEASE W (ACUTE) EXACERBATION (4) Sepsis Assessment/Plan -continue cefepime and vancomycin -ID following Code(s): A41.9 - SEPSIS, UNSPECIFIED ORGANISM Qualifiers: Sepsis type: sepsis due to unspecified organism Qualified Code(s): A41.9 - Sepsis, unspecified organism (5) CAD (coronary artery disease) Assessment/Plan: -now with NSTEMI -cardiology managing Code(s): I25.10 - ATHSCL HEART DISEASE OF [place] CORONARY ARTERY W/O ANG PCTRS Qualifiers: Coronary Disease-Associated Artery/Lesion type: [place] artery [place] vs. transplanted heart: [place] heart Associated angina: angina presence unspecified Qualified Code(s): I25.10 - Atherosclerotic heart disease of [place] coronary artery without angina pectoris (6) CHF (congestive heart failure) Assessment/Plan: -not in exacerbation but will need close monitoring considering he is on IVF -when starts to have improved intake, will stop IVF Code(s): I50.9 - HEART FAILURE, UNSPECIFIED Qualifiers: Congestive heart failure type: unspecified congestive heart failure type Congestive heart failure chronicity: unspecified congestive heart failure chronicity Qualified Code(s): I50.9 - Heart failure, unspecified (7) CVA (cerebral vascular accident) Assessment/Plan: -continue plavix Code(s): I63.9 - CEREBRAL INFARCTION, UNSPECIFIED Qualifiers: CVA mechanism: unspecified Qualified Code(s): I63.9 - Cerebral infarction, unspecified (8) UTI (urinary tract infection) Assessment/Plan: -urine cultures sent, currently growing yeast -continue broad spectrum antibiotics and ID following Code(s): N39.0 - URINARY TRACT INFECTION, SITE NOT SPECIFIED
--- NOTE | 2017-05-01 14:35 | CONSULT ---
Admitting History and Physical - Primary Care Physician PCP: Frank Burgess - Admission History of Present Illness: Pt known to me from recent admission in March,, at which time pt presented with signs of aspiration. He was downgraded to Puree and honey thick liquid. Per Upon discharge, it was rec that diet be maintained until MBS could be done due to overall medical condition. 89 y/o M pt admitted from SNF with SOB, hypoxia. Dx: PNA, NSTEMI Per transfer summary -Diet orders in SNF: Low na, Puree or Ground diet, soft sandwiches, [place] thick liquids Pt admitted with reg diet, thin liquids, difficulty with mastication RD rec downgrade diet to Dysphagia Ground, [place] liquids and swallowing evaluation placed. Selected Entries 04/29/17 04/29/17 04/29/17 11:51 15:26 21:23 Breakfast 50% Diet Tolerated Lunch 50% Supper 50% Temperature 04/30/17 04/30/17 04/30/17 02:00 06:00 10:00 Breakfast Diet Tolerated Lunch Supper Temperature 97.5 F L 97.9 F 98.4 F 04/30/17 04/30/17 04/30/17 10:29 15:40 17:00 Breakfast 75% Diet Tolerated Well Well Lunch 75% Supper Temperature 98.0 F 98.0 F 04/30/17 04/30/17 05/01/17 19:27 20:29 02:08 Breakfast Diet Tolerated Poor Lunch Supper 25% Temperature 98.8 F 98.3 F 05/01/17 05/01/17 05:48 14:00 Breakfast 0 Diet Tolerated Poor Lunch 50% Supper Temperature 98.3 F 97.8 F Laboratory Tests 04/28/17 04/29/17 04/30/17 14:23 05:35 06:00 WBC 12.4 H D 11.0 H 8.0 05/01/17 05:35 WBC 8.5 Pt had DYS ground and nectar for lunch today, and reportedly did well. However, he vomited at the end of his meal. 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 Cardiovascular: Yes: CAD, HTN Pulmonary: Yes: COPD Gastrointestinal: Yes: Other (HX OF PROGRESSIVE REGURGITATION FOR YEARS, PLACED ON OMEPRAZOLE BY PMD NO WORK UP EVER DONE DESPITE SYMPTOMS) Renal/: Yes: Cancer (prostate) - Past Surgical History Past Surgical History: Yes: Carotid Endarterectomy (carotid "stent" about 2 years go), Stent (carotid; denies cardiac stent) - Smoking History Smoking history: Unknown if ever smoked Have you smoked in the past 12 months: No Aproximately how many cigarettes per day: 0 If you are a former smoker, when did you quit?: over 20 years go - Alcohol/Substance Use Hx Alcohol Use: No History of Substance Use: reports: None - Social History ADL: Support Services History of Recent Travel: No History - Admission Reason For Visit: NON-ST ELEVATION (NSTEMI), MYOCARDIAL INFARCTION - General Mental Status: Awake and Alert, Able to Follow Commands (weak. tired) Attention: Intact Ability to Follow Directions: Fair Head/Neck Control: Fair - Hearing Hearing: Normal Hearing Aide: No With Patient: No Speech Evaluation - Communication Primary Language: ICEL[place] Communication: Yes: Simple Responses - Speech Production Intelligibility: Yes: WNL - Speech Characteristics Voice Loudness: Normal Voice Pitch: Yes: Normal Voice Phonatory-based Quality: Yes: Weak, Dysphonia, Vocal Wetness ( intermittent.) Nasal Resonance: Normal Articulation: Yes: Precise - Language/Auditory Comprehension Follows: Yes: 1 Stage Simple Commands - Swallow Evaluation/Bedside Assessment Current Nutritional Intake: Regular, Thin Liquids, Other ( Per [employer] pt had difficulty tolerating regular diet- could not tolerate pancakes with syrup, hamburger, fries. Foods had to be mashed up and this was pt could take > 50 % meals Downgraded to Dys ground/nectar by RD, based on previous diet.) Facial Symmetry at Rest: Symmetrical Facial Symmetry on Retraction: Symmetrical Pucker Lips: Normal Smile: Normal Lingual Movement: Normal, Symmetric Lingual Speed of Movement: Normal Lingual Movement Strgth Against Opposition: Normal Lingual Movement Characteristics: Normal Laryngeal Movement: Able to Palpate, Labored,delay initiation (fairly strong once triggered) Labial Seal: WFL Oral Prep Time: WFL A-P Transit: WFL Coughing/Throat Clear: Yes Change in Voice: Yes Recommendations - Speech Evaluation, Impression/Plan Impression: Swallow reflex is delayed but fairly strong once triggered. Intermittent cough and vocal wetness. - Dysphagia Impressions/Plan Dysphagia Impressions: Ongoing Evaluation *Silent aspiration: cannot be R/O at bedside Dysphagia Treatment Plan: Small Bites, Chin Tuck/Down, Trial Feedings, 1/2 tsp. at a time, Elevate HOB during feed Recommendations: Modified Barium Swallow - Recommendations Diet Consistency: Dysphagia Minced Medication Administration: Crushed with applesauce Liquids: [place] Thick Supplement: Magic Cup, Ensure Pudding
[2017-05-01] MEDS: VANCOMYCIN 1,250 MG in DEXTROSE 5%-WATER - 250 ML IVPB SCH (16:35)
[2017-05-01] MEDS: SODIUM CHLORIDE 1,000 ML IV SCH (16:36)
--- NOTE | 2017-05-01 16:40 | PN ---
Progress Note, Physician History of Present Illness: much calmer breathing better in the room patient much more awake and alert - Current Medication List Current Medications: Active Medications Acetaminophen (Tylenol -) 650 mg PO Q6H PRN PRN Reason: FEVER OR PAIN Al Hydroxide/Mg Hydroxide (Mylanta Oral Suspension -) 30 ml PO Q6HPO [facility] Last Admin: 05/01/17 12:00 Dose: Not Given Albuterol/Ipratropium (Duoneb -) 1 amp NEB QIDR [facility] Last Admin: 05/01/17 12:14 Dose: 1 amp Amlodipine Besylate (Norvasc -) 10 mg PO DAILY [facility] Last Admin: 05/01/17 10:51 Dose: 10 mg Aspirin (Asa -) 81 mg PO DAILY [facility] Last Admin: 05/01/17 10:51 Dose: 81 mg Atorvastatin Calcium (Lipitor -) 10 mg PO HS [facility] Last Admin: 04/30/17 21:01 Dose: 10 mg Cefepime HCl (Maxipime 1gm Ivpb Pre-Docked) 1 gm IVPB Q8H-IV [facility] Last Admin: 05/01/17 10:50 Dose: 1 gm Cholecalciferol (Vitamin D3 -) 1,000 unit PO DAILY [facility] Last Admin: 05/01/17 10:51 Dose: 1,000 unit Cholestyramine Resin (Questran Light Packet -) 4 gm PO BID PRN PRN Reason: cholestrol Clopidogrel Bisulfate (Plavix -) 75 mg PO DAILY [facility] Last Admin: 05/01/17 10:51 Dose: 75 mg Guaifenesin (Mucinex -) 600 mg PO BID [facility] Last Admin: 05/01/17 10:51 Dose: 600 mg Sodium Chloride (Normal Saline -) 1,000 mls @ 42 mls/hr IV ASDIR [facility] Last Admin: 05/01/17 16:36 Dose: 42 mls/hr Vancomycin HCl 1,250 mg/ (Dextrose) 250 mls @ 166.667 mls/hr IVPB DAILY@1600 [facility] PRN Reason: Protocol Last Admin: 05/01/17 16:35 Dose: 166.667 mls/hr Isosorbide Mononitrate (Imdur -) 60 mg PO DAILY [facility] Last Admin: 05/01/17 10:51 Dose: 60 mg Levetiracetam (Keppra -) 750 mg PO BID [facility] Last Admin: 05/01/17 10:51 Dose: 750 mg Loratadine (Claritin -) 10 mg PO DAILY [facility] Last Admin: 05/01/17 10:51 Dose: 10 mg Methylprednisolone Sodium Succinate (Solu-Medrol -) 40 mg IVPB Q6H-IV [facility] Last Admin: 05/01/17 16:35 Dose: 40 mg Mometasone Furoate (Asmanex 220mcg -) 1 puff IH [facility] Last Admin: 04/30/17 21:01 Dose: 1 puff Montelukast Sodium (Singulair -) 10 mg PO HS [facility] Last Admin: 04/30/17 21:01 Dose: 10 mg Multi-Ingredient Ointment (Zinc Oxide) 1 applic TP TID [facility] Last Admin: 05/01/17 15:00 Dose: 1 applic Nitroglycerin (Nitrostat -) 0.4 mg SL Q5M PRN PRN Reason: CHEST PAIN Pantoprazole Sodium (Protonix -) 40 mg PO DAILY [facility] Last Admin: 05/01/17 10:51 Dose: 40 mg Tamsulosin HCl (Flomax -) 0.4 mg PO DAILY [facility] Last Admin: 05/01/17 10:51 Dose: 0.4 mg - Objective Vital Signs: Vital Signs Temperature 97.8 F 05/01/17 14:00 Pulse Rate 74 05/01/17 14:00 Respiratory Rate 20 05/01/17 14:00 Blood Pressure 108/44 05/01/17 14:00 O2 Sat by Pulse Oximetry (%) 92 L 05/01/17 12:13 Constitutional: Yes: No Distress, Calm, Obese Cardiovascular: Yes: Regular Rate and Rhythm Respiratory: Yes: On Nasal O2, Poor Air Entry, Rhonchi Gastrointestinal: Yes: Normal Bowel Sounds, Soft Musculoskeletal: Yes: WNL Extremities: Yes: WNL Neurological: Yes: Alert Psychiatric: Yes: Alert Labs: CBC, BMP 05/01/17 05:35 05/01/17 05:35 INR, PTT INR 1.11 (0.82-1.09) 04/28/17 14:23 Assessment/Plan Problem List - Problems (1) Acute and chronic respiratory failure with hypoxia Code(s): J96.21 - ACUTE AND CHRONIC RESPIRATORY FAILURE WITH HYPOXIA (2) Pneumonia Code(s): J18.9 - PNEUMONIA, UNSPECIFIED ORGANISM Qualifiers: Pneumonia type: due to unspecified organism Laterality: bilateral Lung location: lower lobe of lung Qualified Code(s): J18.9 - Pneumonia, unspecified organism (3) COPD exacerbation Code(s): J44.1 - CHRONIC OBSTRUCTIVE PULMONARY DISEASE W (ACUTE) EXACERBATION (4) NSTEMI (non-ST elevated myocardial infarction) Code(s): I21.4 - NON-ST ELEVATION (NSTEMI) MYOCARDIAL INFARCTION (5) CAD (coronary artery disease) Code(s): I25.10 - ATHSCL HEART DISEASE OF [place] CORONARY ARTERY W/O ANG PCTRS Qualifiers: Coronary Disease-Associated Artery/Lesion type: [place] artery [place] vs. transplanted heart: [place] heart Associated angina: angina presence unspecified Qualified Code(s): I25.10 - Atherosclerotic heart disease of [place] coronary artery without angina pectoris (6) Sepsis Code(s): A41.9 - SEPSIS, UNSPECIFIED ORGANISM Qualifiers: Sepsis type: sepsis due to unspecified organism Qualified Code(s): A41.9 - Sepsis, unspecified organism (7) Lactic acidosis Code(s): E87.2 - ACIDOSIS patient s condition mainly due to pneumonia and resp failure and also nstemi patient also got abx vanco and cefipime plan hydration continue abx incentive [place] rest as per primary team physio will check vanco level tomorrow
[2017-05-01] MEDS: ATORVASTATIN CA 10 MG TABLET (FP) PO SCH (21:59)
[2017-05-01] MEDS: MONTELUKAST NA 10 MG TABLET PO SCH (21:59)
[2017-05-01] MEDS: MOMETASONE FUROATE 220 MCG/IH INHALER IH SCH (21:59)
[2017-05-02] MEDS: CEFEPIME 1 GM/100 ML BAG PRE-DOCKED IVPB SCH ×2 (03:14→10:03)
[2017-05-02] MEDS: methylPREDNISolone NA SUCC 40 MG/1 ML VIAL IVPB SCH ×4 (03:14→20:41)
[2017-05-02] MEDS: MAG HYDROX/AL HYDROX/SIMETH 30 ML UNIT-DOSE CUP PO SCH ×3 (05:20→18:43)
[2017-05-02] MEDS: ZINC OXIDE 20% TOPICAL OINTMENT 30 GM TUBE TP SCH ×3 (05:20→22:32)
[2017-05-02] MEDS: ALBUTEROL SO4 2.5/IPRATROPIUM 0.5 INH SOL 3 ML VIAL.NEB. NEB SCH ×5 (05:45→23:50)
--- NOTE | 2017-05-02 08:37 | PN ---
Progress Note, Physician Chief Complaint: no chest pain History of Present Illness: TELE: NSR - Current Medication List Current Medications: Active Medications Acetaminophen (Tylenol -) 650 mg PO Q6H PRN PRN Reason: FEVER OR PAIN Al Hydroxide/Mg Hydroxide (Mylanta Oral Suspension -) 30 ml PO Q6HPO [facility] Last Admin: 05/02/17 05:20 Dose: Not Given Albuterol/Ipratropium (Duoneb -) 1 amp NEB QIDR [facility] Last Admin: 05/02/17 05:45 Dose: 1 amp Amlodipine Besylate (Norvasc -) 10 mg PO DAILY [facility] Last Admin: 05/01/17 10:51 Dose: 10 mg Aspirin (Asa -) 81 mg PO DAILY [facility] Last Admin: 05/01/17 10:51 Dose: 81 mg Atorvastatin Calcium (Lipitor -) 10 mg PO HS [facility] Last Admin: 05/01/17 21:59 Dose: 10 mg Cefepime HCl (Maxipime 1gm Ivpb Pre-Docked) 1 gm IVPB Q8H-IV [facility] Last Admin: 05/02/17 03:14 Dose: 1 gm Cholecalciferol (Vitamin D3 -) 1,000 unit PO DAILY [facility] Last Admin: 05/01/17 10:51 Dose: 1,000 unit Cholestyramine Resin (Questran Light Packet -) 4 gm PO BID PRN PRN Reason: cholestrol Clopidogrel Bisulfate (Plavix -) 75 mg PO DAILY [facility] Last Admin: 05/01/17 10:51 Dose: 75 mg Guaifenesin (Mucinex -) 600 mg PO BID [facility] Last Admin: 05/01/17 21:59 Dose: 600 mg Sodium Chloride (Normal Saline -) 1,000 mls @ 42 mls/hr IV ASDIR [facility] Last Admin: 05/01/17 16:36 Dose: 42 mls/hr Vancomycin HCl 1,250 mg/ (Dextrose) 250 mls @ 166.667 mls/hr IVPB DAILY@1600 [facility] PRN Reason: Protocol Last Admin: 05/01/17 16:35 Dose: 166.667 mls/hr Isosorbide Mononitrate (Imdur -) 60 mg PO DAILY [facility] Last Admin: 05/01/17 10:51 Dose: 60 mg Levetiracetam (Keppra -) 750 mg PO BID [facility] Last Admin: 05/01/17 21:59 Dose: 750 mg Loratadine (Claritin -) 10 mg PO DAILY [facility] Last Admin: 05/01/17 10:51 Dose: 10 mg Methylprednisolone Sodium Succinate (Solu-Medrol -) 40 mg IVPB Q6H-IV [facility] Last Admin: 05/02/17 03:14 Dose: 40 mg Mometasone Furoate (Asmanex 220mcg -) 1 puff IH HS [facility] Last Admin: 05/01/17 21:59 Dose: 1 puff Montelukast Sodium (Singulair -) 10 mg PO HS [facility] Last Admin: 05/01/17 21:59 Dose: 10 mg Multi-Ingredient Ointment (Zinc Oxide) 1 applic TP TID [facility] Last Admin: 05/02/17 05:20 Dose: 1 applic Nitroglycerin (Nitrostat -) 0.4 mg SL Q5M PRN PRN Reason: CHEST PAIN Pantoprazole Sodium (Protonix -) 40 mg PO DAILY [facility] Last Admin: 05/01/17 10:51 Dose: 40 mg Tamsulosin HCl (Flomax -) 0.4 mg PO DAILY [facility] Last Admin: 05/01/17 10:51 Dose: 0.4 mg - Objective Vital Signs: Vital Signs Temperature 98.1 F 05/02/17 08:01 Pulse Rate 69 05/02/17 08:01 Respiratory Rate 20 05/02/17 08:01 Blood Pressure 147/69 05/02/17 08:01 O2 Sat by Pulse Oximetry (%) 94 L 05/01/17 21:00 Constitutional: Yes: Calm Cardiovascular: Yes: Regular Rate and Rhythm Respiratory: Yes: Rhonchi Gastrointestinal: Yes: Soft Edema: No Neurological: Yes: Alert Labs: INR, PTT INR 1.11 (0.82-1.09) 04/28/17 14:23 - ....Imaging EKG: Image Reviewed Problem List - Problems (1) Acute and chronic respiratory failure with hypoxia Code(s): J96.21 - ACUTE AND CHRONIC RESPIRATORY FAILURE WITH HYPOXIA (2) Pneumonia Code(s): J18.9 - PNEUMONIA, UNSPECIFIED ORGANISM Qualifiers: Pneumonia type: due to unspecified organism Laterality: bilateral Lung location: lower lobe of lung Qualified Code(s): J18.9 - Pneumonia, unspecified organism (3) NSTEMI (non-ST elevated myocardial infarction) Code(s): I21.4 - NON-ST ELEVATION (NSTEMI) MYOCARDIAL INFARCTION (4) SIRS (systemic inflammatory response syndrome) Code(s): R65.10 - SIRS OF NON-INFECTIOUS ORIGIN W/O ACUTE ORGAN DYSFUNCTION (5) COPD exacerbation Code(s): J44.1 - CHRONIC OBSTRUCTIVE PULMONARY DISEASE W (ACUTE) EXACERBATION Assessment/Plan IMP: Sepsis secondary to bilateral PNA NSTEMI Anemia REC: 1. PNA/Sepsis: -ID following -pancultured -On IV abx -Supplimental O2 2. NSTEMI: enzymes trending down -ASA + Plavix. Can increase Lipitor to 80mg daily. -Hold B-K[place] (COPD). Agree w/ Imdur, to be titrated to 60mg -Repeat echo shows preserved LV funciton. -Plan is for conservative/medical management in light of advanced age, normal LV fx and no sig V-ectopy -cont. -D/C TELE
[2017-05-02 08:42] LABS: ANION GAP 7 (8-16); CALCIUM 7.8 mg/dL (8.5-10.1); CO2 26 mmol/L (21-32); GLUCOSE,RANDOM 156 mg/dL (74-106); MAGNESIUM 2.6 mg/dL (1.8-2.4)
[2017-05-02 08:44] LABS: CREATININE 0.6 mg/dL (0.7-1.3); PHOSPHOROUS 2.3 mg/dL (2.5-4.9)
[2017-05-02 09:42] LABS: MCH 29.5 pg (25.7-33.7); MCHC 32.2 g/dl (32.0-35.9); MEAN CELL VOLUME 91.6 fl (80-96); MEAN PLT VOLUME 7.4 fl (7.5-11.1); PLATELET COUNT 201 K/MM3 (134-434); RDW 19.2 % (11.9-15.9); WHITE BLOOD COUNT 8.2 K/mm3 (4.0-10.0)
[2017-05-02] MEDS: TAMSULOSIN HCL 0.4 MG CAP.ER.24H (FP) PO SCH (10:02)
[2017-05-02] MEDS: ASPIRIN 81 MG CHEWABLE TABLETS PO SCH (10:02)
[2017-05-02] MEDS: LORATADINE 10 MG TABLET PO SCH (10:02)
[2017-05-02] MEDS: CLOPIDOGREL BISULFATE 75 MG TABLET (FP) PO SCH (10:02)
[2017-05-02] MEDS: PANTOPRAZOLE 40 MG TABLET (FP) PO SCH (10:02)
[2017-05-02] MEDS: amLODIPine BESYLATE 10 MG TABLET (FP) PO SCH (10:02)
[2017-05-02] MEDS: guaiFENesin 600 MG TABLET.ER (FP) PO SCH ×2 (10:02→21:11)
[2017-05-02] MEDS: levETIRAcetam 250 MG TABLET (FP) PO SCH ×2 (10:02→21:11)
[2017-05-02] MEDS: ISOSORBIDE MONONITRATE 60 MG TAB.SR.24H (FP) PO SCH (10:02)
[2017-05-02] MEDS: CHOLECALCIFEROL (VITAMIN D3) 1,000 UNIT TABLET (FP) PO SCH (10:02)
--- NOTE | 2017-05-02 11:56 | PN ---
Progress Note, Physician Chief Complaint: Mr Oropeza says he feels better today. Says he is not short of breath today. No cp or n/v. - Current Medication List Current Medications: Active Medications Acetaminophen (Tylenol -) 650 mg PO Q6H PRN PRN Reason: FEVER OR PAIN Al Hydroxide/Mg Hydroxide (Mylanta Oral Suspension -) 30 ml PO Q6HPO [facility] Last Admin: 05/02/17 11:50 Dose: 30 ml Albuterol/Ipratropium (Duoneb -) 1 amp NEB QIDR [facility] Last Admin: 05/02/17 11:49 Dose: 1 amp Amlodipine Besylate (Norvasc -) 10 mg PO DAILY [facility] Last Admin: 05/02/17 10:02 Dose: 10 mg Aspirin (Asa -) 81 mg PO DAILY [facility] Last Admin: 05/02/17 10:02 Dose: 81 mg Atorvastatin Calcium (Lipitor -) 10 mg PO HS [facility] Last Admin: 05/01/17 21:59 Dose: 10 mg Cefepime HCl (Maxipime 1gm Ivpb Pre-Docked) 1 gm IVPB Q8H-IV [facility] Last Admin: 05/02/17 10:03 Dose: 1 gm Cholecalciferol (Vitamin D3 -) 1,000 unit PO DAILY [facility] Last Admin: 05/02/17 10:02 Dose: 1,000 unit Cholestyramine Resin (Questran Light Packet -) 4 gm PO BID PRN PRN Reason: cholestrol Clopidogrel Bisulfate (Plavix -) 75 mg PO DAILY [facility] Last Admin: 05/02/17 10:02 Dose: 75 mg Guaifenesin (Mucinex -) 600 mg PO BID [facility] Last Admin: 05/02/17 10:02 Dose: 600 mg Vancomycin HCl 1,250 mg/ (Dextrose) 250 mls @ 166.667 mls/hr IVPB DAILY@1600 [facility] PRN Reason: Protocol Last Admin: 05/01/17 16:35 Dose: 166.667 mls/hr Isosorbide Mononitrate (Imdur -) 60 mg PO DAILY [facility] Last Admin: 05/02/17 10:02 Dose: 60 mg Levetiracetam (Keppra -) 750 mg PO BID [facility] Last Admin: 05/02/17 10:02 Dose: 750 mg Loratadine (Claritin -) 10 mg PO DAILY [facility] Last Admin: 05/02/17 10:02 Dose: 10 mg Methylprednisolone Sodium Succinate (Solu-Medrol -) 40 mg IVPB Q6H-IV [facility] Last Admin: 05/02/17 10:01 Dose: 40 mg Mometasone Furoate (Asmanex 220mcg -) 1 puff IH HS [facility] Last Admin: 05/01/17 21:59 Dose: 1 puff Montelukast Sodium (Singulair -) 10 mg PO HS [facility] Last Admin: 05/01/17 21:59 Dose: 10 mg Multi-Ingredient Ointment (Zinc Oxide) 1 applic TP TID [facility] Last Admin: 05/02/17 05:20 Dose: 1 applic Nitroglycerin (Nitrostat -) 0.4 mg SL Q5M PRN PRN Reason: CHEST PAIN Pantoprazole Sodium (Protonix -) 40 mg PO DAILY [facility] Last Admin: 05/02/17 10:02 Dose: 40 mg Tamsulosin HCl (Flomax -) 0.4 mg PO DAILY [facility] Last Admin: 05/02/17 10:02 Dose: 0.4 mg - Objective Vital Signs: Vital Signs Temperature 36.7 C 05/02/17 08:01 Pulse Rate 71 05/02/17 10:16 Respiratory Rate 20 05/02/17 08:01 Blood Pressure 147/69 05/02/17 08:01 O2 Sat by Pulse Oximetry (%) 94 L 05/02/17 10:16 Constitutional: Yes: Well Nourished, No Distress, Calm Cardiovascular: Yes: Regular Rate and Rhythm. No: Gallop, Murmur, Rub Respiratory: Yes: Regular, On Nasal O2, Rhonchi. No: CTA Bilaterally, Rales, Wheezes Gastrointestinal: Yes: Normal Bowel Sounds, Soft. No: Distention, Tenderness Extremities: Yes: WNL Edema: Yes Edema: LLE: 1+, RLE: 1+ Labs: CBC, BMP 05/02/17 05:35 05/02/17 05:35 INR, PTT INR 1.11 (0.82-1.09) 04/28/17 14:23 Problem List - Problems (1) NSTEMI (non-ST elevated myocardial infarction) Code(s): I21.4 - NON-ST ELEVATION (NSTEMI) MYOCARDIAL INFARCTION (2) Acute and chronic respiratory failure with hypoxia Code(s): J96.21 - ACUTE AND CHRONIC RESPIRATORY FAILURE WITH HYPOXIA (3) COPD exacerbation Code(s): J44.1 - CHRONIC OBSTRUCTIVE PULMONARY DISEASE W (ACUTE) EXACERBATION (4) Sepsis Code(s): A41.9 - SEPSIS, UNSPECIFIED ORGANISM Qualifiers: Sepsis type: sepsis due to unspecified organism Qualified Code(s): A41.9 - Sepsis, unspecified organism (5) CAD (coronary artery disease) Code(s): I25.10 - ATHSCL HEART DISEASE OF [place] CORONARY ARTERY W/O ANG PCTRS Qualifiers: Coronary Disease-Associated Artery/Lesion type: [place] artery [place] vs. transplanted heart: tribe heart Associated angina: angina presence unspecified Qualified Code(s): I25.10 - Atherosclerotic heart disease of [place] coronary artery without angina pectoris (6) CHF (congestive heart failure) Code(s): I50.9 - HEART FAILURE, UNSPECIFIED Qualifiers: Congestive heart failure type: unspecified congestive heart failure type Congestive heart failure chronicity: unspecified congestive heart failure chronicity Qualified Code(s): I50.9 - Heart failure, unspecified (7) CVA (cerebral vascular accident) Code(s): I63.9 - CEREBRAL INFARCTION, UNSPECIFIED Qualifiers: CVA mechanism: unspecified Qualified Code(s): I63.9 - Cerebral infarction, unspecified (8) UTI (urinary tract infection) Code(s): N39.0 - URINARY TRACT INFECTION, SITE NOT SPECIFIED Assessment/Plan (1) NSTEMI (non-ST elevated myocardial infarction) Assessment/Plan: -cardiology following -heparin gtt discontinued per cardiology -medical management with aspirin, plavix, statin, imdur -d/c tele today Code(s): I21.4 - NON-ST ELEVATION (NSTEMI) MYOCARDIAL INFARCTION (2) Acute and chronic respiratory failure with hypoxia Assessment/Plan: -patient improving -continue solumedrol per pulmonary -continue bronchodilators Code(s): J96.21 - ACUTE AND CHRONIC RESPIRATORY FAILURE WITH HYPOXIA (3) COPD exacerbation Assessment/Plan: -as above Code(s): J44.1 - CHRONIC OBSTRUCTIVE PULMONARY DISEASE W (ACUTE) EXACERBATION (4) Sepsis Assessment/Plan -continue cefepime and vancomycin -ID following Code(s): A41.9 - SEPSIS, UNSPECIFIED ORGANISM Qualifiers: Sepsis type: sepsis due to unspecified organism Qualified Code(s): A41.9 - Sepsis, unspecified organism (5) CAD (coronary artery disease) Assessment/Plan: -now with NSTEMI -medical management as above Code(s): I25.10 - ATHSCL HEART DISEASE OF [place] CORONARY ARTERY W/O ANG PCTRS Qualifiers: Coronary Disease-Associated Artery/Lesion type: [place] artery [place] vs. transplanted heart: [place] heart Associated angina: angina presence unspecified Qualified Code(s): I25.10 - Atherosclerotic heart disease of [place] coronary artery without angina pectoris (6) CHF (congestive heart failure) Assessment/Plan: -stop IVF, patient with some edema today -monitor Code(s): I50.9 - HEART FAILURE, UNSPECIFIED Qualifiers: Congestive heart failure type: unspecified congestive heart failure type Congestive heart failure chronicity: unspecified congestive heart failure chronicity Qualified Code(s): I50.9 - Heart failure, unspecified (7) CVA (cerebral vascular accident) Assessment/Plan: -continue plavix Code(s): I63.9 - CEREBRAL INFARCTION, UNSPECIFIED Qualifiers: CVA mechanism: unspecified Qualified Code(s): I63.9 - Cerebral infarction, unspecified (8) UTI (urinary tract infection) Assessment/Plan: -urine cultures sent, currently growing yeast -continue broad spectrum antibiotics and ID following Code(s): N39.0 - URINARY TRACT INFECTION, SITE NOT SPECIFIED
[2017-05-02 12:22] LABS: MYELOCYTE 2 % (0-2); PLATELET ESTIMATE ADEQUATE
[2017-05-02] MEDS ORDERED: NITROGLYCERIN SUBLINGUAL 1/150 0.4 MG TAB SL PRN (12:41)
[2017-05-02] MEDS ORDERED: CHOLESTYRAMINE/ASPARTAME 4 GM PACKET PO PRN (12:41)
[2017-05-02] MEDS ORDERED: ACETAMINOPHEN 325 MG TABLET (FP) PO PRN (12:41)
[2017-05-02] MEDS: ENOXAPARIN NA (PORCINE) 40 MG/0.4 ML DISP.SYRIN SQ SCH ×2 (13:08→16:13)
--- NOTE | 2017-05-02 13:48 | PN ---
Progress Note, Physician History of Present Illness: does not know how he feels still confused - Current Medication List Current Medications: Active Medications Acetaminophen (Tylenol -) 650 mg PO Q6H PRN PRN Reason: FEVER OR PAIN Al Hydroxide/Mg Hydroxide (Mylanta Oral Suspension -) 30 ml PO Q6HPO [facility] Albuterol/Ipratropium (Duoneb -) 1 amp NEB QIDR [facility] Amlodipine Besylate (Norvasc -) 10 mg PO DAILY [facility] Aspirin (Asa -) 81 mg PO DAILY [facility] Atorvastatin Calcium (Lipitor -) 10 mg PO HS [facility] Cefepime HCl (Maxipime 1gm Ivpb Pre-Docked) 1 gm IVPB Q8H-IV [facility] Cholecalciferol (Vitamin D3 -) 1,000 unit PO DAILY [facility] Cholestyramine Resin (Questran Light Packet -) 4 gm PO BID PRN PRN Reason: cholestrol Clopidogrel Bisulfate (Plavix -) 75 mg PO DAILY [facility] Enoxaparin Sodium (Lovenox -) 40 mg SQ DAILY [facility] Last Admin: 05/02/17 13:08 Dose: Not Given Guaifenesin (Mucinex -) 600 mg PO BID [facility] Vancomycin HCl 1,000 mg/ (Dextrose) 250 mls @ 250 mls/hr IVPB DAILY [facility] PRN Reason: Protocol Stop: 05/02/17 14:42 Isosorbide Mononitrate (Imdur -) 60 mg PO DAILY [facility] Levetiracetam (Keppra -) 750 mg PO BID [facility] Loratadine (Claritin -) 10 mg PO DAILY [facility] Methylprednisolone Sodium Succinate (Solu-Medrol -) 40 mg IVPB Q6H-IV [facility] Mometasone Furoate (Asmanex 220mcg -) 1 puff IH HS [facility] Montelukast Sodium (Singulair -) 10 mg PO HS [facility] Multi-Ingredient Ointment (Zinc Oxide) 1 applic TP TID [facility] Nitroglycerin (Nitrostat -) 0.4 mg SL Q5M PRN PRN Reason: CHEST PAIN Pantoprazole Sodium (Protonix -) 40 mg PO DAILY [facility] Tamsulosin HCl (Flomax -) 0.4 mg PO DAILY [facility] - Objective Vital Signs: Vital Signs Temperature 98.1 F 05/02/17 08:01 Pulse Rate 71 05/02/17 10:16 Respiratory Rate 20 05/02/17 08:01 Blood Pressure 147/69 05/02/17 08:01 O2 Sat by Pulse Oximetry (%) 94 L 05/02/17 10:16 Constitutional: Yes: No Distress, Calm Cardiovascular: Yes: Regular Rate and Rhythm Respiratory: Yes: On Nasal O2, Poor Air Entry, Rhonchi Gastrointestinal: Yes: Normal Bowel Sounds, Soft Musculoskeletal: Yes: Other Edema: LLE: 1+, RLE: 1+ Neurological: Yes: Alert, Confusion Psychiatric: Yes: Alert Labs: CBC, BMP 05/02/17 05:35 05/02/17 05:35 INR, PTT INR 1.11 (0.82-1.09) 04/28/17 14:23 Assessment/Plan Problem List - Problems (1) Acute and chronic respiratory failure with hypoxia Code(s): J96.21 - ACUTE AND CHRONIC RESPIRATORY FAILURE WITH HYPOXIA (2) Pneumonia Code(s): J18.9 - PNEUMONIA, UNSPECIFIED ORGANISM Qualifiers: Pneumonia type: due to unspecified organism Laterality: bilateral Lung location: lower lobe of lung Qualified Code(s): J18.9 - Pneumonia, unspecified organism (3) COPD exacerbation Code(s): J44.1 - CHRONIC OBSTRUCTIVE PULMONARY DISEASE W (ACUTE) EXACERBATION (4) NSTEMI (non-ST elevated myocardial infarction) Code(s): I21.4 - NON-ST ELEVATION (NSTEMI) MYOCARDIAL INFARCTION (5) CAD (coronary artery disease) Code(s): I25.10 - ATHSCL HEART DISEASE OF [place] CORONARY ARTERY W/O ANG PCTRS Qualifiers: Coronary Disease-Associated Artery/Lesion type: [place] artery [place] vs. transplanted heart: [place] heart Associated angina: angina presence unspecified Qualified Code(s): I25.10 - Atherosclerotic heart disease of [place] coronary artery without angina pectoris (6) Sepsis Code(s): A41.9 - SEPSIS, UNSPECIFIED ORGANISM Qualifiers: Sepsis type: sepsis due to unspecified organism Qualified Code(s): A41.9 - Sepsis, unspecified organism (7) Lactic acidosis Code(s): E87.2 - ACIDOSIS patient s condition mainly due to pneumonia and resp failure and also nstemi patient also got abx vanco and cefipime plan hydration continue abx incentive [place] rest as per primary team physio vanco level noted vanco level adjusted
[2017-05-02] MEDS ORDERED: VANCOMYCIN 1,250 MG in DEXTROSE 5%-WATER - 250 ML IVPB SCH (16:00)
[2017-05-02] MEDS: VANCOMYCIN 1 GRAM (PRE-DOCKED) 250 ML IVPB SCH (16:13)
[2017-05-02] MEDS ORDERED: CEFEPIME HCL 1 GM VIAL (RESTRICTED TO ID) ONE (16:32)
[2017-05-02] MEDS ORDERED: DEXTROSE 5%-WATER 100 ML IVPB ONE (16:32)
[2017-05-02] MEDS ORDERED: CEFEPIME 1 GM/100 ML BAG PRE-DOCKED IVPB SCH (18:00)
[2017-05-02] MEDS: CEFEPIME 1 GM in DEXTROSE 5%-WATER 100 ML IVPB SCH (18:43)
[2017-05-02] MEDS: MONTELUKAST NA 10 MG TABLET PO SCH (21:11)
[2017-05-02] MEDS ORDERED: ATORVASTATIN CA 10 MG TABLET (FP) PO SCH (22:00)
[2017-05-02] MEDS: MOMETASONE FUROATE 220 MCG/IH INHALER IH SCH (22:32)
[2017-05-03] MEDS: MAG HYDROX/AL HYDROX/SIMETH 30 ML UNIT-DOSE CUP PO SCH ×4 (01:00→17:40)
[2017-05-03] MEDS ORDERED: CEFEPIME HCL 1 GM VIAL (RESTRICTED TO ID) ONE ×4 (01:02→21:02)
[2017-05-03] MEDS ORDERED: DEXTROSE 5%-WATER 100 ML IVPB ONE ×4 (01:03→21:03)
[2017-05-03] MEDS: CEFEPIME 1 GM in DEXTROSE 5%-WATER 100 ML IVPB SCH ×3 (01:40→17:40)
[2017-05-03] MEDS: methylPREDNISolone NA SUCC 40 MG/1 ML VIAL IVPB SCH ×4 (02:19→21:53)
[2017-05-03] MEDS: ALBUTEROL SO4 2.5/IPRATROPIUM 0.5 INH SOL 3 ML VIAL.NEB. NEB SCH ×4 (06:00→23:10)
[2017-05-03] MEDS: ZINC OXIDE 20% TOPICAL OINTMENT 30 GM TUBE TP SCH ×3 (06:05→22:00)
[2017-05-03] MEDS: TAMSULOSIN HCL 0.4 MG CAP.ER.24H (FP) PO SCH (08:43)
[2017-05-03] MEDS ORDERED: PT OWN MED DRAWER 7, Y5N ONE (09:45)
[2017-05-03] MEDS: guaiFENesin 600 MG TABLET.ER (FP) PO SCH ×2 (09:55→21:55)
[2017-05-03] MEDS: CLOPIDOGREL BISULFATE 75 MG TABLET (FP) PO SCH (09:56)
[2017-05-03] MEDS: levETIRAcetam 250 MG TABLET (FP) PO SCH ×2 (09:56→21:54)
[2017-05-03] MEDS: ENOXAPARIN NA (PORCINE) 40 MG/0.4 ML DISP.SYRIN SQ SCH (09:56)
[2017-05-03] MEDS: amLODIPine BESYLATE 10 MG TABLET (FP) PO SCH (09:56)
[2017-05-03] MEDS: CHOLECALCIFEROL (VITAMIN D3) 1,000 UNIT TABLET (FP) PO SCH (09:56)
[2017-05-03] MEDS: PANTOPRAZOLE 40 MG TABLET (FP) PO SCH (09:56)
[2017-05-03] MEDS: ISOSORBIDE MONONITRATE 60 MG TAB.SR.24H (FP) PO SCH (09:56)
[2017-05-03] MEDS: ASPIRIN 81 MG CHEWABLE TABLETS PO SCH (09:56)
[2017-05-03] MEDS: LORATADINE 10 MG TABLET PO SCH (09:56)
--- NOTE | 2017-05-03 12:09 | PN ---
Progress Note (short form) - Note Progress Note: PULMONARY States breathing is more short today. Still with nonproductive cough and wheezing. No fevers. Last Vital Signs Temp Pulse Resp BP Pulse Ox 97.8 F 72 20 178/69 91 L 05/03/17 10:00 05/03/17 10:26 05/03/17 10:00 05/03/17 10:00 05/03/17 10:26 Gen: tachypneic with speaking Heart: RRR Lung: bilateral rhonchi Abd: soft, nontender Ext: no edema CBC, BMP 05/02/17 05:35 05/02/17 05:35 Active Medications Acetaminophen (Tylenol -) 650 mg PO Q6H PRN PRN Reason: FEVER OR PAIN Al Hydroxide/Mg Hydroxide (Mylanta Oral Suspension -) 30 ml PO Q6HPO [facility] Last Admin: 05/03/17 11:16 Dose: 30 ml Albuterol/Ipratropium (Duoneb -) 1 amp NEB QIDR [facility] Last Admin: 05/03/17 11:45 Dose: 1 amp Amlodipine Besylate (Norvasc -) 10 mg PO DAILY [facility] Last Admin: 05/03/17 09:56 Dose: 10 mg Aspirin (Asa -) 81 mg PO DAILY [facility] Last Admin: 05/03/17 09:56 Dose: 81 mg Atorvastatin Calcium (Lipitor -) 80 mg PO [facility] Cholecalciferol (Vitamin D3 -) 1,000 unit PO DAILY [facility] Last Admin: 05/03/17 09:56 Dose: 1,000 unit Cholestyramine Resin (Questran Light Packet -) 4 gm PO BID PRN PRN Reason: cholestrol Clopidogrel Bisulfate (Plavix -) 75 mg PO DAILY [facility] Last Admin: 05/03/17 09:56 Dose: 75 mg Enoxaparin Sodium (Lovenox -) 40 mg SQ DAILY [facility] Last Admin: 05/03/17 09:56 Dose: 40 mg Guaifenesin (Mucinex -) 600 mg PO BID [facility] Last Admin: 05/03/17 09:55 Dose: 600 mg Vancomycin HCl (Vancomycin (Pre-Docked)) 250 mls @ 250 mls/hr IVPB DAILY@1500 [facility] PRN Reason: Protocol Last Admin: 05/02/17 16:13 Dose: 250 mls/hr Cefepime HCl 1 gm/ Dextrose 100 mls @ 200 mls/hr IVPB Q8H-IV [facility] Last Admin: 05/03/17 09:55 Dose: 200 mls/hr Isosorbide Mononitrate (Imdur -) 60 mg PO DAILY [facility] Last Admin: 05/03/17 09:56 Dose: 60 mg Levetiracetam (Keppra -) 750 mg PO BID [facility] Last Admin: 05/03/17 09:56 Dose: 750 mg Loratadine (Claritin -) 10 mg PO DAILY [facility] Last Admin: 05/03/17 09:56 Dose: 10 mg Methylprednisolone Sodium Succinate (Solu-Medrol -) 40 mg IVPB Q6H-IV [facility] Last Admin: 05/03/17 08:43 Dose: 40 mg Mometasone Furoate (Asmanex 220mcg -) 1 puff IH [facility] Last Admin: 05/02/17 22:32 Dose: 1 unit Montelukast Sodium (Singulair -) 10 mg PO [facility] Last Admin: 05/02/17 21:11 Dose: 10 mg Multi-Ingredient Ointment (Zinc Oxide) 1 applic TP TID [facility] Last Admin: 05/03/17 06:05 Dose: 1 applic Nitroglycerin (Nitrostat -) 0.4 mg SL Q5M PRN PRN Reason: CHEST PAIN Pantoprazole Sodium (Protonix -) 40 mg PO DAILY [facility] Last Admin: 05/03/17 09:56 Dose: 40 mg Tamsulosin HCl (Flomax -) 0.4 mg PO DAILY@0830 [facility] Last Admin: 05/03/17 08:43 Dose: 0.4 mg A/P Acute on Chronic Hypoxic Respiratory Failure Pneumonia Sepsis Lactic Acidosis Acute COPD Exacerbation CAD Acute NSTEMI - continue antibiotics - would continue medrol at current dose - inhaled bronchodilators standing and PRN - O2 to keep SpO2 >90% - BiPAP on standby to assist in work of breathing - pt DNR/DNI Problem List - Problems (1) Acute and chronic respiratory failure with hypoxia Code(s): J96.21 - ACUTE AND CHRONIC RESPIRATORY FAILURE WITH HYPOXIA (2) Pneumonia Code(s): J18.9 - PNEUMONIA, UNSPECIFIED ORGANISM Qualifiers: Pneumonia type: due to unspecified organism Laterality: bilateral Lung location: lower lobe of lung Qualified Code(s): J18.9 - Pneumonia, unspecified organism (3) COPD exacerbation Code(s): J44.1 - CHRONIC OBSTRUCTIVE PULMONARY DISEASE W (ACUTE) EXACERBATION (4) NSTEMI (non-ST elevated myocardial infarction) Code(s): I21.4 - NON-ST ELEVATION (NSTEMI) MYOCARDIAL INFARCTION (5) CAD (coronary artery disease) Code(s): I25.10 - ATHSCL HEART DISEASE OF [place] CORONARY ARTERY W/O ANG PCTRS Qualifiers: Coronary Disease-Associated Artery/Lesion type: [place] artery [place] vs. transplanted heart: [place] heart Associated angina: angina presence unspecified Qualified Code(s): I25.10 - Atherosclerotic heart disease of [place] coronary artery without angina pectoris (6) Sepsis Code(s): A41.9 - SEPSIS, UNSPECIFIED ORGANISM Qualifiers: Sepsis type: sepsis due to unspecified organism Qualified Code(s): A41.9 - Sepsis, unspecified organism (7) Lactic acidosis Code(s): E87.2 - ACIDOSIS
--- NOTE | 2017-05-03 13:06 | PN ---
Physical Exam: SUBJECTIVE: Patient seen and examined with no new events over night OBJECTIVE: Vital Signs Period Temp Pulse Resp BP Sys/Bush Pulse Ox Last 24 Hr 97.5 F-98.5 F 66-77 20-20 116-178/46-75 91-96 GENERAL: The patient is awake, alert, HEAD: Normal with no signs of trauma. LUNGS: Breath sounds equal,diminished at bases without wheezing, but shallow breaths HEART: Regular rate and rhythm, ABDOMEN: Soft, nontender, nondistended, normoactive bowel sounds, EXTREMITIES: 2+ pulses, warm, well-perfused, no edema. NEUROLOGICAL: Cranial nerves II through XII grossly intact. SKIN: Warm, dry, normal turgor, no rashes or lesions noted Active Medications Generic Name Dose Route Start Last Admin Trade Name Freq PRN Reason Stop Dose Admin Acetaminophen 650 mg 05/02/17 12:41 Tylenol - PO Q6H PRN FEVER OR PAIN Al Hydroxide/Mg Hydroxide 30 ml 05/02/17 18:00 05/03/17 11:16 Mylanta Oral Suspension - PO 30 ml Q6HPO [facility] Administration Albuterol/Ipratropium 1 amp 05/02/17 18:00 05/03/17 11:45 Duoneb - NEB 1 amp QIDR [facility] Administration Amlodipine Besylate 10 mg 05/03/17 10:00 05/03/17 09:56 Norvasc - PO 10 mg DAILY [facility] Administration Aspirin 81 mg 05/03/17 10:00 05/03/17 09:56 Asa - PO 81 mg DAILY [facility] Administration Atorvastatin Calcium 80 mg 05/03/17 08:53 Lipitor - PO HS [facility] Cholecalciferol 1,000 unit 05/03/17 10:00 05/03/17 09:56 Vitamin D3 - PO 1,000 unit DAILY [facility] Administration Cholestyramine Resin 4 gm 05/02/17 12:41 Questran Light Packet - PO BID PRN cholestrol Clopidogrel Bisulfate 75 mg 05/03/17 10:00 05/03/17 09:56 Plavix - PO 75 mg DAILY [facility] Administration Enoxaparin Sodium 40 mg 05/02/17 12:00 05/03/17 09:56 Lovenox - SQ 40 mg DAILY [facility] Administration Guaifenesin 600 mg 05/02/17 22:00 05/03/17 09:55 Mucinex - PO 600 mg BID [facility] Administration Vancomycin HCl 250 mls @ 250 mls/hr 05/02/17 15:00 05/02/17 16:13 Vancomycin (Pre-Docked) IVPB 250 mls/hr DAILY@1500 [facility] Administration Protocol Cefepime HCl 1 gm/ Dextrose 100 mls @ 200 mls/hr 05/02/17 18:00 05/03/17 09:55 IVPB 200 mls/hr Q8H-IV [facility] Administration Isosorbide Mononitrate 60 mg 05/03/17 10:00 05/03/17 09:56 Imdur - PO 60 mg DAILY [facility] Administration Levetiracetam 750 mg 05/02/17 22:00 05/03/17 09:56 Keppra - PO 750 mg BID [facility] Administration Loratadine 10 mg 05/03/17 10:00 05/03/17 09:56 Claritin - PO 10 mg DAILY [facility] Administration Methylprednisolone Sodium Succinate 40 mg 05/02/17 15:00 05/03/17 08:43 Solu-Medrol - IVPB 40 mg Q6H-IV [facility] Administration Mometasone Furoate 1 puff 05/02/17 22:00 05/02/17 22:32 Asmanex 220mcg - IH 1 unit HS [facility] Administration Montelukast Sodium 10 mg 05/02/17 22:00 05/02/17 21:11 Singulair - PO 10 mg HS [facility] Administration Multi-Ingredient Ointment 1 applic 05/02/17 14:00 05/03/17 06:05 Zinc Oxide TP 1 applic TID [facility] Administration Nitroglycerin 0.4 mg 05/02/17 12:41 Nitrostat - SL Q5M PRN CHEST PAIN Pantoprazole Sodium 40 mg 05/03/17 10:00 05/03/17 09:56 Protonix - PO 40 mg DAILY [facility] Administration Tamsulosin HCl 0.4 mg 05/03/17 08:30 05/03/17 08:43 Flomax - PO 0.4 mg DAILY@0830 [facility] Administration ASSESSMENT/PLAN: This 89 year old male with presentation of +SC, COPD, hypoxia and sepsis which is showing improvement now stable in M/S bed. Assessment/Plan (1) NSTEMI (non-ST elevated myocardial infarction) Assessment/Plan: -cardiology following -medical management with aspirin, plavix, statin, imdur Code(s): I21.4 - NON-ST ELEVATION (NSTEMI) MYOCARDIAL INFARCTION (2) Acute and chronic respiratory failure with hypoxia Assessment/Plan: -patient improving -continue solumedrol per pulmonary at same dosage -continue bronchodilators Code(s): J96.21 - ACUTE AND CHRONIC RESPIRATORY FAILURE WITH HYPOXIA (3) COPD exacerbation Assessment/Plan: -as above Code(s): J44.1 - CHRONIC OBSTRUCTIVE PULMONARY DISEASE W (ACUTE) EXACERBATION (4) Sepsis Assessment/Plan -continue cefepime and vancomycin -ID following Code(s): A41.9 - SEPSIS, UNSPECIFIED ORGANISM Qualifiers: Sepsis type: sepsis due to unspecified organism Qualified Code(s): A41.9 - Sepsis, unspecified organism (5) CAD (coronary artery disease) Assessment/Plan: -now with NSTEMI -medical management as above Code(s): I25.10 - ATHSCL HEART DISEASE OF [place] CORONARY ARTERY W/O ANG PCTRS Qualifiers: Coronary Disease-Associated Artery/Lesion type: [place] artery [place] vs. transplanted heart: [place] heart Associated angina: angina presence unspecified Qualified Code(s): I25.10 - Atherosclerotic heart disease of [place] coronary artery without angina pectoris (6) CHF (congestive heart failure) Assessment/Plan: -monitor Code(s): I50.9 - HEART FAILURE, UNSPECIFIED Qualifiers: Congestive heart failure type: unspecified congestive heart failure type Congestive heart failure chronicity: unspecified congestive heart failure chronicity Qualified Code(s): I50.9 - Heart failure, unspecified (7) CVA (cerebral vascular accident) Assessment/Plan: -continue plavix Code(s): I63.9 - CEREBRAL INFARCTION, UNSPECIFIED Qualifiers: CVA mechanism: unspecified Qualified Code(s): I63.9 - Cerebral infarction, unspecified (8) UTI (urinary tract infection) Assessment/Plan: -continue broad spectrum antibiotics and ID following - called to speak with me regarding pt ?bladder CA and if a work up can be done during this hospitalization. I explained he has a UTI which he is being treated for. Noted on prior consults pt has a few polyps removed in his bladder but on recent scans and us no findings of mass. Will have primary team follow up on Friday. Code(s): N39.0 - URINARY TRACT INFECTION, SITE NOT SPECIFIED Problem List - Problems (1) Acute and chronic respiratory failure with hypoxia Code(s): J96.21 - ACUTE AND CHRONIC RESPIRATORY FAILURE WITH HYPOXIA (2) COPD exacerbation Code(s): J44.1 - CHRONIC OBSTRUCTIVE PULMONARY DISEASE W (ACUTE) EXACERBATION (3) NSTEMI (non-ST elevated myocardial infarction) Code(s): I21.4 - NON-ST ELEVATION (NSTEMI) MYOCARDIAL INFARCTION (4) Sepsis Code(s): A41.9 - SEPSIS, UNSPECIFIED ORGANISM Qualifiers: Sepsis type: sepsis due to unspecified organism Qualified Code(s): A41.9 - Sepsis, unspecified organism (5) UTI (urinary tract infection) Code(s): N39.0 - URINARY TRACT INFECTION, SITE NOT SPECIFIED Visit type - Emergency Visit Emergency Visit: No - New Patient This patient is new to me today: Yes Date on this admission: 05/03/17 - Critical Care Critical Care patient: No - Discharge Referral Referred to [facility] Med P.C.: No
[2017-05-03] MEDS ORDERED: BACITRACIN 15 GM TUBE TOPICAL OINTMENT TP ONE (13:30)
[2017-05-03] MEDS: VANCOMYCIN 1 GRAM (PRE-DOCKED) 250 ML IVPB SCH (14:58)
--- NOTE | 2017-05-03 17:04 | PN ---
Progress Note, Physician History of Present Illness: Pt states he is feeling better this afternoon but still coughing. on O2 nasal cannula. - Current Medication List Current Medications: Active Medications Acetaminophen (Tylenol -) 650 mg PO Q6H PRN PRN Reason: FEVER OR PAIN Al Hydroxide/Mg Hydroxide (Mylanta Oral Suspension -) 30 ml PO Q6HPO [facility] Last Admin: 05/03/17 11:16 Dose: 30 ml Albuterol/Ipratropium (Duoneb -) 1 amp NEB QIDR [facility] Last Admin: 05/03/17 11:45 Dose: 1 amp Amlodipine Besylate (Norvasc -) 10 mg PO DAILY [facility] Last Admin: 05/03/17 09:56 Dose: 10 mg Aspirin (Asa -) 81 mg PO DAILY [facility] Last Admin: 05/03/17 09:56 Dose: 81 mg Atorvastatin Calcium (Lipitor -) 80 mg PO HS [facility] Cholecalciferol (Vitamin D3 -) 1,000 unit PO DAILY [facility] Last Admin: 05/03/17 09:56 Dose: 1,000 unit Cholestyramine Resin (Questran Light Packet -) 4 gm PO BID PRN PRN Reason: cholestrol Clopidogrel Bisulfate (Plavix -) 75 mg PO DAILY [facility] Last Admin: 05/03/17 09:56 Dose: 75 mg Enoxaparin Sodium (Lovenox -) 40 mg SQ DAILY [facility] Last Admin: 05/03/17 09:56 Dose: 40 mg Guaifenesin (Mucinex -) 600 mg PO BID [facility] Last Admin: 05/03/17 09:55 Dose: 600 mg Vancomycin HCl (Vancomycin (Pre-Docked)) 250 mls @ 250 mls/hr IVPB DAILY@1500 [facility] PRN Reason: Protocol Last Admin: 05/03/17 14:58 Dose: 250 mls/hr Cefepime HCl 1 gm/ Dextrose 100 mls @ 200 mls/hr IVPB Q8H-IV [facility] Last Admin: 05/03/17 09:55 Dose: 200 mls/hr Isosorbide Mononitrate (Imdur -) 60 mg PO DAILY [facility] Last Admin: 05/03/17 09:56 Dose: 60 mg Levetiracetam (Keppra -) 750 mg PO BID [facility] Last Admin: 05/03/17 09:56 Dose: 750 mg Loratadine (Claritin -) 10 mg PO DAILY [facility] Last Admin: 05/03/17 09:56 Dose: 10 mg Methylprednisolone Sodium Succinate (Solu-Medrol -) 40 mg IVPB Q6H-IV [facility] Last Admin: 05/03/17 14:58 Dose: 40 mg Mometasone Furoate (Asmanex 220mcg -) 1 puff IH HS [facility] Last Admin: 05/02/17 22:32 Dose: 1 unit Montelukast Sodium (Singulair -) 10 mg PO HS [facility] Last Admin: 05/02/17 21:11 Dose: 10 mg Multi-Ingredient Ointment (Zinc Oxide) 1 applic TP TID [facility] Last Admin: 05/03/17 14:59 Dose: 1 applic Nitroglycerin (Nitrostat -) 0.4 mg SL Q5M PRN PRN Reason: CHEST PAIN Pantoprazole Sodium (Protonix -) 40 mg PO DAILY [facility] Last Admin: 05/03/17 09:56 Dose: 40 mg Tamsulosin HCl (Flomax -) 0.4 mg PO DAILY@0830 [facility] Last Admin: 05/03/17 08:43 Dose: 0.4 mg - Objective Vital Signs: Vital Signs Temperature 98.4 F 05/03/17 15:42 Pulse Rate 69 05/03/17 15:42 Respiratory Rate 18 05/03/17 15:42 Blood Pressure 114/54 05/03/17 15:42 O2 Sat by Pulse Oximetry (%) 91 L 05/03/17 10:26 Constitutional: Yes: No Distress HENT: Yes: WNL Neck: Yes: Supple Cardiovascular: Yes: Regular Rate and Rhythm Respiratory: Yes: Rhonchi Gastrointestinal: Yes: Normal Bowel Sounds, Soft Genitourinary: Yes: WNL Musculoskeletal: Yes: WNL Integumentary: Yes: WNL Neurological: Yes: Alert Labs: CBC, BMP 05/02/17 05:35 05/02/17 05:35 INR, PTT INR 1.11 (0.82-1.09) 04/28/17 14:23 - ....Imaging Chest X-ray: Report Reviewed Problem List - Problems (1) Acute and chronic respiratory failure with hypoxia Code(s): J96.21 - ACUTE AND CHRONIC RESPIRATORY FAILURE WITH HYPOXIA (2) COPD exacerbation Code(s): J44.1 - CHRONIC OBSTRUCTIVE PULMONARY DISEASE W (ACUTE) EXACERBATION (3) Lactic acidosis Code(s): E87.2 - ACIDOSIS (4) NSTEMI (non-ST elevated myocardial infarction) Code(s): I21.4 - NON-ST ELEVATION (NSTEMI) MYOCARDIAL INFARCTION (5) Pneumonia Code(s): J18.9 - PNEUMONIA, UNSPECIFIED ORGANISM Qualifiers: Pneumonia type: due to unspecified organism Laterality: bilateral Lung location: lower lobe of lung Qualified Code(s): J18.9 - Pneumonia, unspecified organism Assessment/Plan Pt afebrile, without acute distress continue antibiotics cont monitor vitals
[2017-05-03] MEDS: ATORVASTATIN CA 10 MG TABLET (FP) PO SCH (21:54)
[2017-05-03] MEDS: MONTELUKAST NA 10 MG TABLET PO SCH (21:55)
[2017-05-03] MEDS: MOMETASONE FUROATE 220 MCG/IH INHALER IH SCH (21:55)
[2017-05-04] MEDS: MAG HYDROX/AL HYDROX/SIMETH 30 ML UNIT-DOSE CUP PO SCH ×4 (01:18→17:15)
[2017-05-04] MEDS: CEFEPIME 1 GM in DEXTROSE 5%-WATER 100 ML IVPB SCH ×3 (02:04→17:14)
[2017-05-04] MEDS: ALBUTEROL SO4 2.5/IPRATROPIUM 0.5 INH SOL 3 ML VIAL.NEB. NEB SCH ×3 (06:00→17:06)
[2017-05-04] MEDS: methylPREDNISolone NA SUCC 40 MG/1 ML VIAL IVPB SCH ×3 (06:51→15:18)
[2017-05-04] MEDS: ZINC OXIDE 20% TOPICAL OINTMENT 30 GM TUBE TP SCH ×3 (06:51→22:42)
[2017-05-04] MEDS ORDERED: PT OWN MED DRAWER 7, Y5N ONE ×3 (07:03→18:27)
[2017-05-04 07:45] LABS: MCH 29.3 pg (25.7-33.7); MEAN CELL VOLUME 91.3 fl (80-96); MEAN PLT VOLUME 7.2 fl (7.5-11.1); PLATELET COUNT 192 K/MM3 (134-434); RDW 18.6 % (11.9-15.9); WHITE BLOOD COUNT 7.6 K/mm3 (4.0-10.0)
[2017-05-04 08:07] LABS: ALBUMIN 2.2 g/dl (3.4-5.0); ANION GAP 6 (8-16); CALCIUM 7.6 mg/dL (8.5-10.1); CO2 28 mmol/L (21-32); CREATININE 0.7 mg/dL (0.7-1.3); GLUCOSE,RANDOM 159 mg/dL (74-106); SGOT/AST 15 U/L (15-37); SGPT/ALT 20 U/L (12-78)
[2017-05-04 08:09] LABS: ALK PHOS 93 U/L (45-117); BILIRUBIN,TOTAL 0.5 mg/dL (0.2-1.0); TOT PROT 4.9 g/dl (6.4-8.2)
[2017-05-04] MEDS: TAMSULOSIN HCL 0.4 MG CAP.ER.24H (FP) PO SCH (08:18)
[2017-05-04 09:15] LABS: TOTAL CELLS COUNTED 100
[2017-05-04 09:16] LABS: PLATELET ESTIMATE ADEQUATE
[2017-05-04] MEDS ORDERED: CEFEPIME HCL 1 GM VIAL (RESTRICTED TO ID) ONE ×3 (10:08→20:25)
[2017-05-04] MEDS ORDERED: DEXTROSE 5%-WATER 100 ML IVPB ONE ×3 (10:08→20:25)
[2017-05-04] MEDS: levETIRAcetam 250 MG TABLET (FP) PO SCH ×2 (10:12→22:16)
[2017-05-04] MEDS: ENOXAPARIN NA (PORCINE) 40 MG/0.4 ML DISP.SYRIN SQ SCH (10:12)
[2017-05-04] MEDS: LORATADINE 10 MG TABLET PO SCH (10:13)
[2017-05-04] MEDS: ISOSORBIDE MONONITRATE 60 MG TAB.SR.24H (FP) PO SCH (10:13)
[2017-05-04] MEDS: amLODIPine BESYLATE 10 MG TABLET (FP) PO SCH (10:13)
[2017-05-04] MEDS: CHOLECALCIFEROL (VITAMIN D3) 1,000 UNIT TABLET (FP) PO SCH (10:13)
[2017-05-04] MEDS: ASPIRIN 81 MG CHEWABLE TABLETS PO SCH (10:13)
[2017-05-04] MEDS: PANTOPRAZOLE 40 MG TABLET (FP) PO SCH (10:13)
[2017-05-04] MEDS: CLOPIDOGREL BISULFATE 75 MG TABLET (FP) PO SCH (10:14)
[2017-05-04] MEDS: guaiFENesin 600 MG TABLET.ER (FP) PO SCH ×2 (10:14→22:18)
--- NOTE | 2017-05-04 10:41 | PN ---
Progress Note (short form) - Note Progress Note: PULMONARY Feels better today, less short of breath. Still with nonproductive cough and wheezing. No fevers. Last Vital Signs Temp Pulse Resp BP Pulse Ox 97.6 F 76 20 140/52 91 L 05/04/17 06:58 05/04/17 06:58 05/04/17 06:58 05/04/17 06:58 05/03/17 21:00 Gen: tachypneic with speaking Heart: RRR Lung: bilateral rhonchi Abd: soft, nontender Ext: no edema CBC, BMP 05/04/17 06:20 05/04/17 06:20 Active Medications Acetaminophen (Tylenol -) 650 mg PO Q6H PRN PRN Reason: FEVER OR PAIN Al Hydroxide/Mg Hydroxide (Mylanta Oral Suspension -) 30 ml PO Q6HPO [facility] Last Admin: 05/04/17 06:52 Dose: Not Given Albuterol/Ipratropium (Duoneb -) 1 amp NEB QIDR [facility] Last Admin: 05/04/17 06:00 Dose: 1 amp Amlodipine Besylate (Norvasc -) 10 mg PO DAILY [facility] Last Admin: 05/04/17 10:13 Dose: 10 mg Aspirin (Asa -) 81 mg PO DAILY [facility] Last Admin: 05/04/17 10:13 Dose: 81 mg Atorvastatin Calcium (Lipitor -) 80 mg PO HS [facility] Last Admin: 05/03/17 21:54 Dose: 80 mg Cholecalciferol (Vitamin D3 -) 1,000 unit PO DAILY [facility] Last Admin: 05/04/17 10:13 Dose: 1,000 unit Cholestyramine Resin (Questran Light Packet -) 4 gm PO BID PRN PRN Reason: cholestrol Clopidogrel Bisulfate (Plavix -) 75 mg PO DAILY [facility] Last Admin: 05/04/17 10:14 Dose: 75 mg Enoxaparin Sodium (Lovenox -) 40 mg SQ DAILY [facility] Last Admin: 05/04/17 10:12 Dose: 40 mg Guaifenesin (Mucinex -) 600 mg PO BID [facility] Last Admin: 05/04/17 10:14 Dose: 600 mg Vancomycin HCl (Vancomycin (Pre-Docked)) 250 mls @ 250 mls/hr IVPB DAILY@1500 [facility] PRN Reason: Protocol Last Admin: 08/19/17 14:58 Dose: 250 mls/hr Cefepime HCl 1 gm/ Dextrose 100 mls @ 200 mls/hr IVPB Q8H-IV [facility] Last Admin: 05/04/17 10:13 Dose: 200 mls/hr Isosorbide Mononitrate (Imdur -) 60 mg PO DAILY [facility] Last Admin: 05/04/17 10:13 Dose: 60 mg Levetiracetam (Keppra -) 750 mg PO BID [facility] Last Admin: 05/04/17 10:12 Dose: 750 mg Loratadine (Claritin -) 10 mg PO DAILY [facility] Last Admin: 05/04/17 10:13 Dose: 10 mg Methylprednisolone Sodium Succinate (Solu-Medrol -) 40 mg IVPB Q6H-IV [facility] Last Admin: 05/04/17 08:18 Dose: 40 mg Mometasone Furoate (Asmanex 220mcg -) 1 puff IH [facility] Last Admin: 05/03/17 21:55 Dose: 1 unit Montelukast Sodium (Singulair -) 10 mg PO [facility] Last Admin: 05/03/17 21:55 Dose: 10 mg Multi-Ingredient Ointment (Zinc Oxide) 1 applic TP TID [facility] Last Admin: 05/04/17 06:51 Dose: 1 applic Nitroglycerin (Nitrostat -) 0.4 mg SL Q5M PRN PRN Reason: CHEST PAIN Pantoprazole Sodium (Protonix -) 40 mg PO DAILY [facility] Last Admin: 05/04/17 10:13 Dose: 40 mg Tamsulosin HCl (Flomax -) 0.4 mg PO DAILY@0830 [facility] Last Admin: 05/04/17 08:18 Dose: 0.4 mg A/P Acute on Chronic Hypoxic Respiratory Failure Pneumonia Sepsis Lactic Acidosis Acute COPD Exacerbation CAD Acute NSTEMI - continue antibiotics - will decrease medrol to 40mg q8h - inhaled bronchodilators standing and PRN - O2 to keep SpO2 >90% - BiPAP on standby to assist in work of breathing - pt DNR/DNI Problem List - Problems (1) Acute and chronic respiratory failure with hypoxia Code(s): J96.21 - ACUTE AND CHRONIC RESPIRATORY FAILURE WITH HYPOXIA (2) Pneumonia Code(s): J18.9 - PNEUMONIA, UNSPECIFIED ORGANISM Qualifiers: Pneumonia type: due to unspecified organism Laterality: bilateral Lung location: lower lobe of lung Qualified Code(s): J18.9 - Pneumonia, unspecified organism (3) COPD exacerbation Code(s): J44.1 - CHRONIC OBSTRUCTIVE PULMONARY DISEASE W (ACUTE) EXACERBATION (4) NSTEMI (non-ST elevated myocardial infarction) Code(s): I21.4 - NON-ST ELEVATION (NSTEMI) MYOCARDIAL INFARCTION (5) CAD (coronary artery disease) Code(s): I25.10 - ATHSCL HEART DISEASE OF [place] CORONARY ARTERY W/O ANG PCTRS Qualifiers: Coronary Disease-Associated Artery/Lesion type: [place] artery [place] vs. transplanted heart: [place] heart Associated angina: angina presence unspecified Qualified Code(s): I25.10 - Atherosclerotic heart disease of [place] coronary artery without angina pectoris (6) Sepsis Code(s): A41.9 - SEPSIS, UNSPECIFIED ORGANISM Qualifiers: Sepsis type: sepsis due to unspecified organism Qualified Code(s): A41.9 - Sepsis, unspecified organism (7) Lactic acidosis Code(s): E87.2 - ACIDOSIS
--- NOTE | 2017-05-04 13:08 | PN ---
Progress Note, Physician History of Present Illness: Pt is alert, eating. Still has somewhat productive cough gracia. with deep inspiration. Otherwise no specific complaints. - Current Medication List Current Medications: Active Medications Acetaminophen (Tylenol -) 650 mg PO Q6H PRN PRN Reason: FEVER OR PAIN Al Hydroxide/Mg Hydroxide (Mylanta Oral Suspension -) 30 ml PO Q6HPO [facility] Last Admin: 05/04/17 11:55 Dose: 30 ml Albuterol/Ipratropium (Duoneb -) 1 amp NEB QIDR [facility] Last Admin: 05/04/17 11:53 Dose: 1 amp Amlodipine Besylate (Norvasc -) 10 mg PO DAILY [facility] Last Admin: 05/04/17 10:13 Dose: 10 mg Aspirin (Asa -) 81 mg PO DAILY [facility] Last Admin: 05/04/17 10:13 Dose: 81 mg Atorvastatin Calcium (Lipitor -) 80 mg PO HS [facility] Last Admin: 05/03/17 21:54 Dose: 80 mg Cholecalciferol (Vitamin D3 -) 1,000 unit PO DAILY [facility] Last Admin: 05/04/17 10:13 Dose: 1,000 unit Cholestyramine Resin (Questran Light Packet -) 4 gm PO BID PRN PRN Reason: cholestrol Clopidogrel Bisulfate (Plavix -) 75 mg PO DAILY [facility] Last Admin: 05/04/17 10:14 Dose: 75 mg Enoxaparin Sodium (Lovenox -) 40 mg SQ DAILY [facility] Last Admin: 05/04/17 10:12 Dose: 40 mg Guaifenesin (Mucinex -) 600 mg PO BID [facility] Last Admin: 05/04/17 10:14 Dose: 600 mg Vancomycin HCl (Vancomycin (Pre-Docked)) 250 mls @ 250 mls/hr IVPB DAILY@1500 [facility] PRN Reason: Protocol Last Admin: 05/03/17 14:58 Dose: 250 mls/hr Cefepime HCl 1 gm/ Dextrose 100 mls @ 200 mls/hr IVPB Q8H-IV [facility] Last Admin: 05/04/17 10:13 Dose: 200 mls/hr Isosorbide Mononitrate (Imdur -) 60 mg PO DAILY [facility] Last Admin: 05/04/17 10:13 Dose: 60 mg Levetiracetam (Keppra -) 750 mg PO BID [facility] Last Admin: 05/04/17 10:12 Dose: 750 mg Loratadine (Claritin -) 10 mg PO DAILY [facility] Last Admin: 05/04/17 10:13 Dose: 10 mg Methylprednisolone Sodium Succinate (Solu-Medrol -) 40 mg IVPB Q8H [facility] Mometasone Furoate (Asmanex 220mcg -) 1 puff IH [facility] Last Admin: 05/03/17 21:55 Dose: 1 unit Montelukast Sodium (Singulair -) 10 mg PO [facility] Last Admin: 05/03/17 21:55 Dose: 10 mg Multi-Ingredient Ointment (Zinc Oxide) 1 applic TP TID [facility] Last Admin: 05/04/17 06:51 Dose: 1 applic Nitroglycerin (Nitrostat -) 0.4 mg SL Q5M PRN PRN Reason: CHEST PAIN Pantoprazole Sodium (Protonix -) 40 mg PO DAILY [facility] Last Admin: 05/04/17 10:13 Dose: 40 mg Tamsulosin HCl (Flomax -) 0.4 mg PO DAILY@0830 [facility] Last Admin: 05/04/17 08:18 Dose: 0.4 mg - Objective Vital Signs: Vital Signs Temperature 97.8 F 05/04/17 10:00 Pulse Rate 72 05/04/17 10:00 Respiratory Rate 20 05/04/17 10:00 Blood Pressure 138/53 05/04/17 10:00 O2 Sat by Pulse Oximetry (%) 93 L 05/04/17 09:00 Constitutional: Yes: No Distress, Calm Eyes: Yes: WNL HENT: Yes: WNL Neck: Yes: Supple Cardiovascular: Yes: Regular Rate and Rhythm Respiratory: Yes: Cough, On Nasal O2, Other (b/l coarse breath sounds) Gastrointestinal: Yes: Normal Bowel Sounds, Soft Genitourinary: Yes: WNL Musculoskeletal: Yes: WNL Extremities: Yes: WNL Integumentary: Yes: WNL Wound/Incision: Yes: Clean/Dry Neurological: Yes: Alert, Oriented Psychiatric: Yes: Alert Labs: CBC, BMP 05/04/17 06:20 05/04/17 06:20 INR, PTT INR 1.11 (0.82-1.09) 04/28/17 14:23 Problem List - Problems (1) Acute and chronic respiratory failure with hypoxia Code(s): J96.21 - ACUTE AND CHRONIC RESPIRATORY FAILURE WITH HYPOXIA (2) COPD exacerbation Code(s): J44.1 - CHRONIC OBSTRUCTIVE PULMONARY DISEASE W (ACUTE) EXACERBATION (3) Lactic acidosis Code(s): E87.2 - ACIDOSIS (4) NSTEMI (non-ST elevated myocardial infarction) Code(s): I21.4 - NON-ST ELEVATION (NSTEMI) MYOCARDIAL INFARCTION (5) Pneumonia Code(s): J18.9 - PNEUMONIA, UNSPECIFIED ORGANISM Qualifiers: Pneumonia type: due to unspecified organism Laterality: bilateral Lung location: lower lobe of lung Qualified Code(s): J18.9 - Pneumonia, unspecified organism Assessment/Plan Pt afebrile / currently stable - continue current antibiotics - on steroids - monitor vitals O2 sats
[2017-05-04] MEDS: VANCOMYCIN 1 GRAM (PRE-DOCKED) 250 ML IVPB SCH (15:18)
--- NOTE | 2017-05-04 15:50 | PN ---
Physical Exam: SUBJECTIVE: Patient seen and examined at bedside. Audible gurgling sounds. OBJECTIVE: Vital Signs Period Temp Pulse Resp BP Sys/Bush Pulse Ox Last 24 Hr 97.6 F-97.9 F 72-98 16-20 116-140/52-84 91-93 GENERAL: The patient is awake, alert, and fully oriented, in no acute distress. HEAD: Normal with no signs of trauma. EYES: PERRL, extraocular movements intact, sclera anicteric, conjunctiva clear. No ptosis. LUNGS: Coarse rhales and rhonchi throughout; audible gurgling sounds; accessory muscle use HEART: Regular rate and rhythm, S1, S2 without murmur, rub or gallop. ABDOMEN: Soft, firm, distended, hypoactive bowel sounds, no guarding, no rebound RIGHT UPPER EXTREMITY: 4+ edema LEFT LOWER EXTREMITY: 1+ left pedal edema NEUROLOGICAL: Cranial nerves II through XII grossly intact. Normal speech, gait not observed. Laboratory Results - last 24 hr 05/04/17 05/04/17 06:20 06:20 WBC 7.6 RBC 2.80 L Hgb 8.2 L Hct 25.6 L MCV 91.3 MCH 29.3 MCHC 32.0 RDW 18.6 H Plt Count 192 MPV 7.2 L Neutrophils % Y Neutrophils % (Manual) 86 H Band Neuts % (Manual) 2 Lymphocytes % Y Lymphocytes % (Manual) 10 D Monocytes % (Manual) 2 L Platelet Estimate Adequate Sodium 139 Potassium 4.6 Chloride 105 Carbon Dioxide 28 Anion Gap 6 L BUN 18 Creatinine 0.7 Creat Clearance w eGFR > 60 Random Glucose 159 H Calcium 7.6 L Total Bilirubin 0.5 D AST 15 D ALT 20 Alkaline Phosphatase 93 D Total Protein 4.9 L Albumin 2.2 L Active Medications Generic Name Dose Route Start Last Admin Trade Name Freq PRN Reason Stop Dose Admin Acetaminophen 650 mg 05/02/17 12:41 Tylenol - PO Q6H PRN FEVER OR PAIN Al Hydroxide/Mg Hydroxide 30 ml 05/02/17 18:00 05/04/17 11:55 Mylanta Oral Suspension - PO 30 ml Q6HPO [facility] Administration Albuterol/Ipratropium 1 amp 05/02/17 18:00 05/04/17 11:53 Duoneb - NEB 1 amp QIDR [facility] Administration Amlodipine Besylate 10 mg 05/03/17 10:00 05/04/17 10:13 Norvasc - PO 10 mg DAILY [facility] Administration Aspirin 81 mg 05/03/17 10:00 05/04/17 10:13 Asa - PO 81 mg DAILY [facility] Administration Atorvastatin Calcium 80 mg 05/03/17 08:53 05/03/17 21:54 Lipitor - PO 80 mg HS [facility] Administration Cholecalciferol 1,000 unit 05/03/17 10:00 05/04/17 10:13 Vitamin D3 - PO 1,000 unit DAILY [facility] Administration Cholestyramine Resin 4 gm 05/02/17 12:41 Questran Light Packet - PO BID PRN cholestrol Clopidogrel Bisulfate 75 mg 05/03/17 10:00 05/04/17 10:14 Plavix - PO 75 mg DAILY [facility] Administration Enoxaparin Sodium 40 mg 05/02/17 12:00 05/04/17 10:12 Lovenox - SQ 40 mg DAILY [facility] Administration Guaifenesin 600 mg 05/02/17 22:00 05/04/17 10:14 Mucinex - PO 600 mg BID [facility] Administration Vancomycin HCl 250 mls @ 250 mls/hr 05/02/17 15:00 05/04/17 15:18 Vancomycin (Pre-Docked) IVPB 250 mls/hr DAILY@1500 [facility] Administration Protocol Cefepime HCl 1 gm/ Dextrose 100 mls @ 200 mls/hr 05/02/17 18:00 05/04/17 10:13 IVPB 200 mls/hr Q8H-IV [facility] Administration Isosorbide Mononitrate 60 mg 05/03/17 10:00 05/04/17 10:13 Imdur - PO 60 mg DAILY [facility] Administration Levetiracetam 750 mg 05/02/17 22:00 05/04/17 10:12 Keppra - PO 750 mg BID [facility] Administration Loratadine 10 mg 05/03/17 10:00 05/04/17 10:13 Claritin - PO 10 mg DAILY [facility] Administration Methylprednisolone Sodium Succinate 40 mg 05/04/17 16:00 05/04/17 15:18 Solu-Medrol - IVPB 40 mg Q8H [facility] Administration Mometasone Furoate 1 puff 05/02/17 22:00 05/03/17 21:55 Asmanex 220mcg - IH 1 unit HS [facility] Administration Montelukast Sodium 10 mg 05/02/17 22:00 05/03/17 21:55 Singulair - PO 10 mg HS [facility] Administration Multi-Ingredient Ointment 1 applic 05/02/17 14:00 05/04/17 15:19 Zinc Oxide TP 1 applic TID [facility] Administration Nitroglycerin 0.4 mg 05/02/17 12:41 Nitrostat - SL Q5M PRN CHEST PAIN Pantoprazole Sodium 40 mg 05/03/17 10:00 05/04/17 10:13 Protonix - PO 40 mg DAILY [facility] Administration Tamsulosin HCl 0.4 mg 05/03/17 08:30 05/04/17 08:18 Flomax - PO 0.4 mg DAILY@0830 [facility] Administration ASSESSMENT/PLAN 89 year-old male with a PMH of HTN, CAD, carotid artery disease s/p endarterectromy x 2 years, CVA/TIA, COPD, GERD, and prostate cancer. Admitted for NSTEMI. NSTEMI CAD --continue ASA, Plavix, Lipitor --continue Imdur, nitroglycerin --hold beta genna secondary to COPD --plan is for conservative/medical management Diastolic dysfunction --Echo: LV Grade I diastolic dysfunction; RV fxn grossly normal, wall motion hyperdynamic; LAE; mild to moderate AI; possible small loculated pericardial effusion --pleural effusion on CTA --mild pedal edema --significant rhonchi and rales on clinical exam --start Lasix IV 40mg daily --daily weights --insert batista; strict I&Os Acute and chronic respiratory failure with hypoxia Sepsis secondary to bilateral pneumonia COPD exacerbation --04/28 CTA showed bilateral lower lobe airspace disease/pneumonia --afebrile, no leukocytosis --continue cefepime (day #7), vanc (day #7) --continue Solumedrol --continue duonebs --BIPAP PRN Carotid artery disease --continue ASA, Plavix, Lipitor h/o CVA/TIA --continue ASA, Plavix, Lipitor GERD --continue protonix Right upper extremity edema --likely dependent edema in large measure --elevate limb DVT prophylaxis: lovenox, oob, ambulation, PT Visit type - Emergency Visit Emergency Visit: Yes ED Registration Date: 04/28/17 Care time: The patient presented to the Emergency Department on the above date and was hospitalized for further evaluation of their emergent condition. - New Patient This patient is new to me today: Yes Date on this admission: 05/04/17 - Critical Care Critical Care patient: No
[2017-05-04] MEDS: FUROSEMIDE 40 MG/4 ML INJECTABLE VIAL IVPUSH SCH (18:28)
[2017-05-04] MEDS: ATORVASTATIN CA 10 MG TABLET (FP) PO SCH (22:17)
[2017-05-04] MEDS: MONTELUKAST NA 10 MG TABLET PO SCH (22:18)
[2017-05-04] MEDS: MOMETASONE FUROATE 220 MCG/IH INHALER IH SCH (22:18)
[2017-05-05] MEDS: ALBUTEROL SO4 2.5/IPRATROPIUM 0.5 INH SOL 3 ML VIAL.NEB. NEB SCH ×4 (00:05→17:10)
[2017-05-05] MEDS: CEFEPIME 1 GM in DEXTROSE 5%-WATER 100 ML IVPB SCH ×3 (01:27→18:03)
[2017-05-05] MEDS: ZINC OXIDE 20% TOPICAL OINTMENT 30 GM TUBE TP SCH ×3 (06:42→22:33)
[2017-05-05] MEDS: MAG HYDROX/AL HYDROX/SIMETH 30 ML UNIT-DOSE CUP PO SCH ×4 (08:14→18:04)
[2017-05-05 08:38] LABS: MCH 29.2 pg (25.7-33.7); MCHC 31.6 g/dl (32.0-35.9); MEAN CELL VOLUME 92.4 fl (80-96); MEAN PLT VOLUME 8.1 fl (7.5-11.1); PLATELET COUNT 183 K/MM3 (134-434); WHITE BLOOD COUNT 15.5 K/mm3 (4.0-10.0)
[2017-05-05 09:13] LABS: ALBUMIN 2.4 g/dl (3.4-5.0); ALK PHOS 127 U/L (45-117); ANION GAP 10 (8-16); BILIRUBIN,TOTAL 0.5 mg/dL (0.2-1.0); CALCIUM 7.8 mg/dL (8.5-10.1); CO2 28 mmol/L (21-32); CREATININE 0.7 mg/dL (0.7-1.3); GLUCOSE,RANDOM 146 mg/dL (74-106); MAGNESIUM 2.7 mg/dL (1.8-2.4); PHOSPHOROUS 2.4 mg/dL (2.5-4.9); SGOT/AST 24 U/L (15-37); SGPT/ALT 29 U/L (12-78); TOT PROT 5.2 g/dl (6.4-8.2)
[2017-05-05] MEDS: methylPREDNISolone NA SUCC 40 MG/1 ML VIAL IVPB SCH ×3 (09:17→17:22)
[2017-05-05] MEDS: TAMSULOSIN HCL 0.4 MG CAP.ER.24H (FP) PO SCH (09:17)
[2017-05-05 09:33] LABS: METAMYELOCYTE 1 % (0-2); MYELOCYTE 1 % (0-2); NUCLEATED RED BLOOD CELL 3 % (0-0); PLATELET ESTIMATE ADEQUATE; TOTAL CELLS COUNTED 100
--- NOTE | 2017-05-05 10:51 | PN ---
Progress Note, [facility] - Note Progress Note: Selected Entries 05/04/17 05/04/17 05/04/17 06:58 09:54 10:00 Breakfast 100% Diet Tolerated Well Lunch Supper Temperature 97.6 F 97.8 F 05/04/17 05/04/17 05/04/17 14:34 17:32 20:29 Breakfast Diet Tolerated Well Well Lunch 100% Supper 100% Temperature 97.9 F 97.7 F 05/05/17 05/05/17 07:25 09:51 Breakfast Diet Tolerated Lunch Supper Temperature 97.7 F 97.7 F Laboratory Tests 05/05/17 06:00 WBC 15.5 H D CXR-RLL infiltrate. Diet order- Dys puree and thin liquid. Pt downgraded per MBS to Dys Puree diet and honey thick liquid. Paden thick liquid at bedside. MBS -SILENT aspiration on nectar thick liquid from a cup and honey thick liquid from a straw. REC- MD Diet order Dys Puree diet and honey thick liquid on tsp only Pt is dysphonic, with impaired airway protection and impaired laryngeal sensation resulting in silent aspiration. Monitor pulmonary status. ENT consult suggested. Visualize larynx, airway protection,sensation. h/o smoking Reviewed with nursing.
[2017-05-05] MEDS: CHOLECALCIFEROL (VITAMIN D3) 1,000 UNIT TABLET (FP) PO SCH (11:20)
[2017-05-05] MEDS: amLODIPine BESYLATE 10 MG TABLET (FP) PO SCH (11:20)
[2017-05-05] MEDS: ASPIRIN 81 MG CHEWABLE TABLETS PO SCH (11:20)
[2017-05-05] MEDS: CLOPIDOGREL BISULFATE 75 MG TABLET (FP) PO SCH (11:20)
[2017-05-05] MEDS: PANTOPRAZOLE 40 MG TABLET (FP) PO SCH (11:20)
[2017-05-05] MEDS: guaiFENesin 600 MG TABLET.ER (FP) PO SCH ×2 (11:20→22:33)
[2017-05-05] MEDS: LORATADINE 10 MG TABLET PO SCH (11:20)
[2017-05-05] MEDS: FUROSEMIDE 40 MG/4 ML INJECTABLE VIAL IVPUSH SCH (11:21)
[2017-05-05] MEDS: ENOXAPARIN NA (PORCINE) 40 MG/0.4 ML DISP.SYRIN SQ SCH (11:21)
[2017-05-05] MEDS: ISOSORBIDE MONONITRATE 60 MG TAB.SR.24H (FP) PO SCH (11:21)
[2017-05-05] MEDS: levETIRAcetam 250 MG TABLET (FP) PO SCH ×2 (12:39→22:32)
--- NOTE | 2017-05-05 12:57 | PN ---
Progress Note (short form) - Note Progress Note: PULMONARY Steroids decreased yesterday, feels slightly worse today. Still with nonproductive cough and wheezing. No fevers. Last Vital Signs Temp Pulse Resp BP Pulse Ox 97.7 F 86 20 151/63 92 L 05/05/17 09:51 05/05/17 11:26 05/05/17 09:51 05/05/17 09:51 05/05/17 11:26 Gen: tachypneic with speaking Heart: RRR Lung: bilateral rhonchi Abd: soft, nontender Ext: no edema CBC, BMP 05/05/17 06:00 05/05/17 06:00 Active Medications Acetaminophen (Tylenol -) 650 mg PO Q6H PRN PRN Reason: FEVER OR PAIN Al Hydroxide/Mg Hydroxide (Mylanta Oral Suspension -) 30 ml PO Q6HPO [facility] Last Admin: 05/05/17 11:20 Dose: 30 ml Albuterol/Ipratropium (Duoneb -) 1 amp NEB QIDR [facility] Last Admin: 05/05/17 11:20 Dose: 1 amp Amlodipine Besylate (Norvasc -) 10 mg PO DAILY [facility] Last Admin: 05/05/17 11:20 Dose: 10 mg Aspirin (Asa -) 81 mg PO DAILY [facility] Last Admin: 05/05/17 11:20 Dose: 81 mg Atorvastatin Calcium (Lipitor -) 80 mg PO HS [facility] Last Admin: 05/04/17 22:17 Dose: 80 mg Cholecalciferol (Vitamin D3 -) 1,000 unit PO DAILY [facility] Last Admin: 05/05/17 11:20 Dose: 1,000 unit Cholestyramine Resin (Questran Light Packet -) 4 gm PO BID PRN PRN Reason: cholestrol Clopidogrel Bisulfate (Plavix -) 75 mg PO DAILY [facility] Last Admin: 05/05/17 11:20 Dose: 75 mg Enoxaparin Sodium (Lovenox -) 40 mg SQ DAILY [facility] Last Admin: 05/05/17 11:21 Dose: 40 mg Furosemide (Lasix Injection -) 40 mg IVPUSH DAILY [facility] Last Admin: 05/05/17 11:21 Dose: 40 mg Guaifenesin (Mucinex -) 600 mg PO BID [facility] Last Admin: 05/05/17 11:20 Dose: 600 mg Vancomycin HCl (Vancomycin (Pre-Docked)) 250 mls @ 250 mls/hr IVPB DAILY@1500 [facility] PRN Reason: Protocol Last Admin: 05/04/17 15:18 Dose: 250 mls/hr Cefepime HCl 1 gm/ Dextrose 100 mls @ 200 mls/hr IVPB Q8H-IV [facility] Last Admin: 05/05/17 12:39 Dose: 200 mls/hr Isosorbide Mononitrate (Imdur -) 60 mg PO DAILY [facility] Last Admin: 05/05/17 11:21 Dose: 60 mg Levetiracetam (Keppra -) 750 mg PO BID [facility] Last Admin: 05/05/17 12:39 Dose: 750 mg Loratadine (Claritin -) 10 mg PO DAILY [facility] Last Admin: 05/05/17 11:20 Dose: 10 mg Methylprednisolone Sodium Succinate (Solu-Medrol -) 40 mg IVPB Q8H [facility] Last Admin: 05/05/17 09:17 Dose: 40 mg Mometasone Furoate (Asmanex 220mcg -) 1 puff IH [facility] Last Admin: 05/04/17 22:18 Dose: 1 unit Montelukast Sodium (Singulair -) 10 mg PO HS [facility] Last Admin: 05/04/17 22:18 Dose: 10 mg Multi-Ingredient Ointment (Zinc Oxide) 1 applic TP TID [facility] Last Admin: 05/05/17 06:42 Dose: 1 applic Nitroglycerin (Nitrostat -) 0.4 mg SL Q5M PRN PRN Reason: CHEST PAIN Pantoprazole Sodium (Protonix -) 40 mg PO DAILY [facility] Last Admin: 05/05/17 11:20 Dose: 40 mg Tamsulosin HCl (Flomax -) 0.4 mg PO DAILY@0830 [facility] Last Admin: 05/05/17 09:17 Dose: 0.4 mg A/P Acute on Chronic Hypoxic Respiratory Failure Pneumonia Sepsis Lactic Acidosis Acute COPD Exacerbation CAD Acute NSTEMI - continue antibiotics - will keep medrol at 40mg q8h - inhaled bronchodilators standing and PRN - O2 to keep SpO2 >90% - BiPAP on standby to assist in work of breathing - pt DNR/DNI Problem List - Problems (1) Acute and chronic respiratory failure with hypoxia Code(s): J96.21 - ACUTE AND CHRONIC RESPIRATORY FAILURE WITH HYPOXIA (2) Pneumonia Code(s): J18.9 - PNEUMONIA, UNSPECIFIED ORGANISM Qualifiers: Pneumonia type: due to unspecified organism Laterality: bilateral Lung location: lower lobe of lung Qualified Code(s): J18.9 - Pneumonia, unspecified organism (3) COPD exacerbation Code(s): J44.1 - CHRONIC OBSTRUCTIVE PULMONARY DISEASE W (ACUTE) EXACERBATION (4) NSTEMI (non-ST elevated myocardial infarction) Code(s): I21.4 - NON-ST ELEVATION (NSTEMI) MYOCARDIAL INFARCTION (5) CAD (coronary artery disease) Code(s): I25.10 - ATHSCL HEART DISEASE OF [place] CORONARY ARTERY W/O ANG PCTRS Qualifiers: Coronary Disease-Associated Artery/Lesion type: [place] artery [place] vs. transplanted heart: [place] heart Associated angina: angina presence unspecified Qualified Code(s): I25.10 - Atherosclerotic heart disease of [place] coronary artery without angina pectoris (6) Sepsis Code(s): A41.9 - SEPSIS, UNSPECIFIED ORGANISM Qualifiers: Sepsis type: sepsis due to unspecified organism Qualified Code(s): A41.9 - Sepsis, unspecified organism (7) Lactic acidosis Code(s): E87.2 - ACIDOSIS
--- NOTE | 2017-05-05 13:02 | PN ---
Progress Note, Physician Chief Complaint: Mr Oropeza says he has stomach upset. Cannot tell me if his breathing is improved or worsened, says "I don't know". No chest pain. - Current Medication List Current Medications: Active Medications Acetaminophen (Tylenol -) 650 mg PO Q6H PRN PRN Reason: FEVER OR PAIN Al Hydroxide/Mg Hydroxide (Mylanta Oral Suspension -) 30 ml PO Q6HPO [facility] Last Admin: 05/05/17 11:20 Dose: 30 ml Albuterol/Ipratropium (Duoneb -) 1 amp NEB QIDR [facility] Last Admin: 05/05/17 11:20 Dose: 1 amp Amlodipine Besylate (Norvasc -) 10 mg PO DAILY [facility] Last Admin: 05/05/17 11:20 Dose: 10 mg Aspirin (Asa -) 81 mg PO DAILY [facility] Last Admin: 05/05/17 11:20 Dose: 81 mg Atorvastatin Calcium (Lipitor -) 80 mg PO HS [facility] Last Admin: 05/04/17 22:17 Dose: 80 mg Cholecalciferol (Vitamin D3 -) 1,000 unit PO DAILY [facility] Last Admin: 05/05/17 11:20 Dose: 1,000 unit Cholestyramine Resin (Questran Light Packet -) 4 gm PO BID PRN PRN Reason: cholestrol Clopidogrel Bisulfate (Plavix -) 75 mg PO DAILY [facility] Last Admin: 05/05/17 11:20 Dose: 75 mg Enoxaparin Sodium (Lovenox -) 40 mg SQ DAILY [facility] Last Admin: 05/05/17 11:21 Dose: 40 mg Furosemide (Lasix Injection -) 40 mg IVPUSH DAILY [facility] Last Admin: 05/05/17 11:21 Dose: 40 mg Guaifenesin (Mucinex -) 600 mg PO BID [facility] Last Admin: 05/05/17 11:20 Dose: 600 mg Vancomycin HCl (Vancomycin (Pre-Docked)) 250 mls @ 250 mls/hr IVPB DAILY@1500 [facility] PRN Reason: Protocol Last Admin: 05/04/17 15:18 Dose: 250 mls/hr Cefepime HCl 1 gm/ Dextrose 100 mls @ 200 mls/hr IVPB Q8H-IV [facility] Last Admin: 05/05/17 12:39 Dose: 200 mls/hr Isosorbide Mononitrate (Imdur -) 60 mg PO DAILY [facility] Last Admin: 05/05/17 11:21 Dose: 60 mg Levetiracetam (Keppra -) 750 mg PO BID [facility] Last Admin: 05/05/17 12:39 Dose: 750 mg Loratadine (Claritin -) 10 mg PO DAILY [facility] Last Admin: 05/05/17 11:20 Dose: 10 mg Methylprednisolone Sodium Succinate (Solu-Medrol -) 40 mg IVPB Q8H [facility] Last Admin: 05/05/17 09:17 Dose: 40 mg Mometasone Furoate (Asmanex 220mcg -) 1 puff IH [facility] Last Admin: 05/04/17 22:18 Dose: 1 unit Montelukast Sodium (Singulair -) 10 mg PO [facility] Last Admin: 05/04/17 22:18 Dose: 10 mg Multi-Ingredient Ointment (Zinc Oxide) 1 applic TP TID [facility] Last Admin: 05/05/17 06:42 Dose: 1 applic Nitroglycerin (Nitrostat -) 0.4 mg SL Q5M PRN PRN Reason: CHEST PAIN Pantoprazole Sodium (Protonix -) 40 mg PO DAILY [facility] Last Admin: 05/05/17 11:20 Dose: 40 mg Tamsulosin HCl (Flomax -) 0.4 mg PO DAILY@0830 [facility] Last Admin: 05/05/17 09:17 Dose: 0.4 mg - Objective Vital Signs: Vital Signs Temperature 36.5 C 05/05/17 09:51 Pulse Rate 86 05/05/17 11:26 Respiratory Rate 20 05/05/17 09:51 Blood Pressure 151/63 05/05/17 09:51 O2 Sat by Pulse Oximetry (%) 92 L 05/05/17 11:26 Constitutional: Yes: Well Nourished, No Distress, Calm Cardiovascular: Yes: Regular Rate and Rhythm. No: Gallop, Murmur, Rub Respiratory: Yes: Regular, On Venti-Mask, Rhonchi, Wheezes. No: Rales Gastrointestinal: Yes: Normal Bowel Sounds, Soft. No: Distention, Tenderness Extremities: Yes: WNL Edema: Yes Edema: LLE: 1+, RLE: 1+ Labs: CBC, BMP 05/05/17 06:00 05/05/17 06:00 INR, PTT INR 1.11 (0.82-1.09) 04/28/17 14:23 Problem List - Problems (1) NSTEMI (non-ST elevated myocardial infarction) Code(s): I21.4 - NON-ST ELEVATION (NSTEMI) MYOCARDIAL INFARCTION (2) Acute and chronic respiratory failure with hypoxia Code(s): J96.21 - ACUTE AND CHRONIC RESPIRATORY FAILURE WITH HYPOXIA (3) COPD exacerbation Code(s): J44.1 - CHRONIC OBSTRUCTIVE PULMONARY DISEASE W (ACUTE) EXACERBATION (4) Sepsis Code(s): A41.9 - SEPSIS, UNSPECIFIED ORGANISM Qualifiers: Sepsis type: sepsis due to unspecified organism Qualified Code(s): A41.9 - Sepsis, unspecified organism (5) CAD (coronary artery disease) Code(s): I25.10 - ATHSCL HEART DISEASE OF [place] CORONARY ARTERY W/O ANG PCTRS Qualifiers: Coronary Disease-Associated Artery/Lesion type: [place] artery [place] vs. transplanted heart: [place] heart Associated angina: angina presence unspecified Qualified Code(s): I25.10 - Atherosclerotic heart disease of [place] coronary artery without angina pectoris (6) CHF (congestive heart failure) Code(s): I50.9 - HEART FAILURE, UNSPECIFIED Qualifiers: Congestive heart failure type: unspecified congestive heart failure type Congestive heart failure chronicity: unspecified congestive heart failure chronicity Qualified Code(s): I50.9 - Heart failure, unspecified (7) CVA (cerebral vascular accident) Code(s): I63.9 - CEREBRAL INFARCTION, UNSPECIFIED Qualifiers: CVA mechanism: unspecified Qualified Code(s): I63.9 - Cerebral infarction, unspecified (8) UTI (urinary tract infection) Code(s): N39.0 - URINARY TRACT INFECTION, SITE NOT SPECIFIED Assessment/Plan (1) NSTEMI (non-ST elevated myocardial infarction) Assessment/Plan: -appreciate cardiology assistance -medical management Code(s): I21.4 - NON-ST ELEVATION (NSTEMI) MYOCARDIAL INFARCTION (2) Acute and chronic respiratory failure with hypoxia Assessment/Plan: -appears worsened today -concern for aspiration -pulmonary following, on solumedrol -place on dysphagia 1 honey thick liquid -bronchodilators -monitor for improvement Code(s): J96.21 - ACUTE AND CHRONIC RESPIRATORY FAILURE WITH HYPOXIA (3) COPD exacerbation Assessment/Plan: -as above Code(s): J44.1 - CHRONIC OBSTRUCTIVE PULMONARY DISEASE W (ACUTE) EXACERBATION (4) Sepsis Assessment/Plan -continue cefepime and vancomycin -ID following Code(s): A41.9 - SEPSIS, UNSPECIFIED ORGANISM Qualifiers: Sepsis type: sepsis due to unspecified organism Qualified Code(s): A41.9 - Sepsis, unspecified organism (5) CAD (coronary artery disease) Assessment/Plan: -continue medical management Code(s): I25.10 - ATHSCL HEART DISEASE OF [place] CORONARY ARTERY W/O ANG PCTRS Qualifiers: Coronary Disease-Associated Artery/Lesion type: [place] artery [place] vs. transplanted heart: [place] heart Associated angina: angina presence unspecified Qualified Code(s): I25.10 - Atherosclerotic heart disease of [place] coronary artery without angina pectoris (6) CHF (congestive heart failure) Assessment/Plan: -continue lasix Code(s): I50.9 - HEART FAILURE, UNSPECIFIED Qualifiers: Congestive heart failure type: unspecified congestive heart failure type Congestive heart failure chronicity: unspecified congestive heart failure chronicity Qualified Code(s): I50.9 - Heart failure, unspecified (7) CVA (cerebral vascular accident) Assessment/Plan: -continue plavix Code(s): I63.9 - CEREBRAL INFARCTION, UNSPECIFIED Qualifiers: CVA mechanism: unspecified Qualified Code(s): I63.9 - Cerebral infarction, unspecified (8) UTI (urinary tract infection) Assessment/Plan: -urine cultures negative Code(s): N39.0 - URINARY TRACT INFECTION, SITE NOT SPECIFIED
--- NOTE | 2017-05-05 13:16 | PN ---
Progress Note, Physician History of Present Illness: weakness continues eating lunch still with cough - Current Medication List Current Medications: Active Medications Acetaminophen (Tylenol -) 650 mg PO Q6H PRN PRN Reason: FEVER OR PAIN Al Hydroxide/Mg Hydroxide (Mylanta Oral Suspension -) 30 ml PO Q6HPO [facility] Last Admin: 05/05/17 11:20 Dose: 30 ml Albuterol/Ipratropium (Duoneb -) 1 amp NEB QIDR [facility] Last Admin: 05/05/17 11:20 Dose: 1 amp Amlodipine Besylate (Norvasc -) 10 mg PO DAILY [facility] Last Admin: 05/05/17 11:20 Dose: 10 mg Aspirin (Asa -) 81 mg PO DAILY [facility] Last Admin: 05/05/17 11:20 Dose: 81 mg Atorvastatin Calcium (Lipitor -) 80 mg PO HS [facility] Last Admin: 05/04/17 22:17 Dose: 80 mg Cholecalciferol (Vitamin D3 -) 1,000 unit PO DAILY [facility] Last Admin: 05/05/17 11:20 Dose: 1,000 unit Cholestyramine Resin (Questran Light Packet -) 4 gm PO BID PRN PRN Reason: cholestrol Clopidogrel Bisulfate (Plavix -) 75 mg PO DAILY [facility] Last Admin: 05/05/17 11:20 Dose: 75 mg Enoxaparin Sodium (Lovenox -) 40 mg SQ DAILY [facility] Last Admin: 05/05/17 11:21 Dose: 40 mg Furosemide (Lasix Injection -) 40 mg IVPUSH DAILY [facility] Last Admin: 05/05/17 11:21 Dose: 40 mg Guaifenesin (Mucinex -) 600 mg PO BID [facility] Last Admin: 05/05/17 11:20 Dose: 600 mg Vancomycin HCl (Vancomycin (Pre-Docked)) 250 mls @ 250 mls/hr IVPB DAILY@1500 [facility] PRN Reason: Protocol Last Admin: 05/04/17 15:18 Dose: 250 mls/hr Cefepime HCl 1 gm/ Dextrose 100 mls @ 200 mls/hr IVPB Q8H-IV [facility] Last Admin: 05/05/17 12:39 Dose: 200 mls/hr Isosorbide Mononitrate (Imdur -) 60 mg PO DAILY [facility] Last Admin: 05/05/17 11:21 Dose: 60 mg Levetiracetam (Keppra -) 750 mg PO BID [facility] Last Admin: 05/05/17 12:39 Dose: 750 mg Loratadine (Claritin -) 10 mg PO DAILY [facility] Last Admin: 05/05/17 11:20 Dose: 10 mg Methylprednisolone Sodium Succinate (Solu-Medrol -) 40 mg IVPB Q8H [facility] Last Admin: 05/05/17 09:17 Dose: 40 mg Mometasone Furoate (Asmanex 220mcg -) [address] [facility] Last Admin: 05/04/17 22:18 Dose: 1 unit Montelukast Sodium (Singulair -) 10 mg PO HS [facility] Last Admin: 05/04/17 22:18 Dose: 10 mg Multi-Ingredient Ointment (Zinc Oxide) 1 applic TP TID [facility] Last Admin: 05/05/17 06:42 Dose: 1 applic Nitroglycerin (Nitrostat -) 0.4 mg SL Q5M PRN PRN Reason: CHEST PAIN Pantoprazole Sodium (Protonix -) 40 mg PO DAILY [facility] Last Admin: 05/05/17 11:20 Dose: 40 mg Tamsulosin HCl (Flomax -) 0.4 mg PO DAILY@0830 [facility] Last Admin: 05/05/17 09:17 Dose: 0.4 mg - Objective Vital Signs: Vital Signs Temperature 97.7 F 05/05/17 09:51 Pulse Rate 86 05/05/17 11:26 Respiratory Rate 20 05/05/17 09:51 Blood Pressure 151/63 05/05/17 09:51 O2 Sat by Pulse Oximetry (%) 92 L 05/05/17 11:26 Constitutional: Yes: No Distress, Calm Cardiovascular: Yes: S1, S2 Respiratory: Yes: Poor Air Entry, Rhonchi Gastrointestinal: Yes: Normal Bowel Sounds, Soft Extremities: Yes: Other Edema: LLE: Trace, RLE: Trace Neurological: Yes: Alert, Other Psychiatric: Yes: Alert Labs: CBC, BMP 05/05/17 06:00 05/05/17 06:00 INR, PTT INR 1.11 (0.82-1.09) 04/28/17 14:23 Assessment/Plan Problem List - Problems (1) Acute and chronic respiratory failure with hypoxia Code(s): J96.21 - ACUTE AND CHRONIC RESPIRATORY FAILURE WITH HYPOXIA (2) Pneumonia Code(s): J18.9 - PNEUMONIA, UNSPECIFIED ORGANISM Qualifiers: Pneumonia type: due to unspecified organism Laterality: bilateral Lung location: lower lobe of lung Qualified Code(s): J18.9 - Pneumonia, unspecified organism (3) COPD exacerbation Code(s): J44.1 - CHRONIC OBSTRUCTIVE PULMONARY DISEASE W (ACUTE) EXACERBATION (4) NSTEMI (non-ST elevated myocardial infarction) Code(s): I21.4 - NON-ST ELEVATION (NSTEMI) MYOCARDIAL INFARCTION (5) CAD (coronary artery disease) Code(s): I25.10 - ATHSCL HEART DISEASE OF [place] CORONARY ARTERY W/O ANG PCTRS Qualifiers: Coronary Disease-Associated Artery/Lesion type: [place] artery [place] vs. transplanted heart: [place] heart Associated angina: angina presence unspecified Qualified Code(s): I25.10 - Atherosclerotic heart disease of [place] coronary artery without angina pectoris (6) Sepsis Code(s): A41.9 - SEPSIS, UNSPECIFIED ORGANISM Qualifiers: Sepsis type: sepsis due to unspecified organism Qualified Code(s): A41.9 - Sepsis, unspecified organism (7) Lactic acidosis Code(s): E87.2 - ACIDOSIS patient s condition mainly due to pneumonia and resp failure and also nstemi patient also got abx vanco and cefipime plan continue abx monitor breathing pul on case rest as per primary team
[2017-05-05] MEDS: VANCOMYCIN 1 GRAM (PRE-DOCKED) 250 ML IVPB SCH (16:04)
[2017-05-05] MEDS ORDERED: CEFEPIME HCL 1 GM VIAL (RESTRICTED TO ID) ONE ×2 (17:59→21:25)
[2017-05-05] MEDS ORDERED: DEXTROSE 5%-WATER 100 ML IVPB ONE ×2 (17:59→21:26)
[2017-05-05] MEDS: MOMETASONE FUROATE 220 MCG/IH INHALER IH SCH (22:31)
[2017-05-05] MEDS: ATORVASTATIN CA 10 MG TABLET (FP) PO SCH (22:32)
[2017-05-05] MEDS: MONTELUKAST NA 10 MG TABLET PO SCH (22:33)
[2017-05-05] MEDS ORDERED: PT OWN MED DRAWER 7, Y5N ONE (23:41)
[2017-05-06] MEDS: CEFEPIME 1 GM in DEXTROSE 5%-WATER 100 ML IVPB SCH ×3 (02:00→18:24)
[2017-05-06] MEDS: ALBUTEROL SO4 2.5/IPRATROPIUM 0.5 INH SOL 3 ML VIAL.NEB. NEB SCH ×5 (06:20→23:48)
[2017-05-06] MEDS: ZINC OXIDE 20% TOPICAL OINTMENT 30 GM TUBE TP SCH ×3 (06:41→21:31)
[2017-05-06] MEDS: MAG HYDROX/AL HYDROX/SIMETH 30 ML UNIT-DOSE CUP PO SCH ×4 (06:41→18:23)
[2017-05-06 07:55] LABS: MCH 29.1 pg (25.7-33.7); MCHC 31.7 g/dl (32.0-35.9); MEAN CELL VOLUME 91.7 fl (80-96); MEAN PLT VOLUME 7.7 fl (7.5-11.1); PLATELET COUNT 146 K/MM3 (134-434); RDW 18.7 % (11.9-15.9); WHITE BLOOD COUNT 15.6 K/mm3 (4.0-10.0)
[2017-05-06 08:31] LABS: ANION GAP 9 (8-16); CALCIUM 7.9 mg/dL (8.5-10.1); CO2 26 mmol/L (21-32); CREATININE 0.8 mg/dL (0.7-1.3); GLUCOSE,RANDOM 177 mg/dL (74-106); MAGNESIUM 2.7 mg/dL (1.8-2.4)
[2017-05-06] MEDS ORDERED: CEFEPIME HCL 1 GM VIAL (RESTRICTED TO ID) ONE ×3 (09:32→20:10)
[2017-05-06] MEDS ORDERED: DEXTROSE 5%-WATER 100 ML IVPB ONE ×3 (09:33→20:10)
[2017-05-06] MEDS: methylPREDNISolone NA SUCC 40 MG/1 ML VIAL IVPB SCH ×3 (09:50→15:48)
[2017-05-06] MEDS: ISOSORBIDE MONONITRATE 60 MG TAB.SR.24H (FP) PO SCH (09:51)
[2017-05-06] MEDS: FUROSEMIDE 40 MG/4 ML INJECTABLE VIAL IVPUSH SCH (09:51)
[2017-05-06] MEDS: CLOPIDOGREL BISULFATE 75 MG TABLET (FP) PO SCH (09:51)
[2017-05-06] MEDS: ENOXAPARIN NA (PORCINE) 40 MG/0.4 ML DISP.SYRIN SQ SCH (09:51)
[2017-05-06] MEDS: guaiFENesin 600 MG TABLET.ER (FP) PO SCH ×2 (09:51→21:31)
[2017-05-06] MEDS: levETIRAcetam 250 MG TABLET (FP) PO SCH ×2 (09:51→21:30)
[2017-05-06] MEDS: LORATADINE 10 MG TABLET PO SCH (09:52)
[2017-05-06] MEDS: TAMSULOSIN HCL 0.4 MG CAP.ER.24H (FP) PO SCH (09:52)
[2017-05-06] MEDS: CHOLECALCIFEROL (VITAMIN D3) 1,000 UNIT TABLET (FP) PO SCH (09:52)
[2017-05-06] MEDS: amLODIPine BESYLATE 10 MG TABLET (FP) PO SCH (09:52)
[2017-05-06] MEDS: PANTOPRAZOLE 40 MG TABLET (FP) PO SCH (09:52)
[2017-05-06] MEDS: ASPIRIN 81 MG CHEWABLE TABLETS PO SCH (09:52)
[2017-05-06 10:47] LABS: TOTAL CELLS COUNTED 100
[2017-05-06 10:48] LABS: METAMYELOCYTE 1 % (0-2); PLATELET ESTIMATE ADEQUATE (NORMAL)
--- NOTE | 2017-05-06 11:28 | PN ---
Progress Note, Physician Chief Complaint: Mr Oropeza says does not know how he feels, only that he has a pneumonia. - Current Medication List Current Medications: Active Medications Acetaminophen (Tylenol -) 650 mg PO Q6H PRN PRN Reason: FEVER OR PAIN Al Hydroxide/Mg Hydroxide (Mylanta Oral Suspension -) 30 ml PO Q6HPO [facility] Last Admin: 05/06/17 06:41 Dose: 30 ml Albuterol/Ipratropium (Duoneb -) 1 amp NEB QIDR [facility] Last Admin: 05/06/17 06:20 Dose: 1 amp Amlodipine Besylate (Norvasc -) 10 mg PO DAILY [facility] Last Admin: 05/06/17 09:52 Dose: 10 mg Aspirin (Asa -) 81 mg PO DAILY [facility] Last Admin: 05/06/17 09:52 Dose: 81 mg Atorvastatin Calcium (Lipitor -) 80 mg PO HS [facility] Last Admin: 05/05/17 22:32 Dose: 80 mg Cholecalciferol (Vitamin D3 -) 1,000 unit PO DAILY [facility] Last Admin: 05/06/17 09:52 Dose: 1,000 unit Cholestyramine Resin (Questran Light Packet -) 4 gm PO BID PRN PRN Reason: cholestrol Clopidogrel Bisulfate (Plavix -) 75 mg PO DAILY [facility] Last Admin: 05/06/17 09:51 Dose: 75 mg Enoxaparin Sodium (Lovenox -) 40 mg SQ DAILY [facility] Last Admin: 05/06/17 09:51 Dose: 40 mg Furosemide (Lasix Injection -) 40 mg IVPUSH DAILY [facility] Last Admin: 05/06/17 09:51 Dose: 40 mg Guaifenesin (Mucinex -) 600 mg PO BID [facility] Last Admin: 05/06/17 09:51 Dose: 600 mg Vancomycin HCl (Vancomycin (Pre-Docked)) 250 mls @ 250 mls/hr IVPB DAILY@1500 [facility] PRN Reason: Protocol Last Admin: 05/05/17 16:04 Dose: 250 mls/hr Cefepime HCl 1 gm/ Dextrose 100 mls @ 200 mls/hr IVPB Q8H-IV [facility] Last Admin: 05/06/17 09:52 Dose: 200 mls/hr Isosorbide Mononitrate (Imdur -) 60 mg PO DAILY [facility] Last Admin: 08/22/17 09:51 Dose: 60 mg Levetiracetam (Keppra -) 750 mg PO BID [facility] Last Admin: 05/06/17 09:51 Dose: 750 mg Loratadine (Claritin -) 10 mg PO DAILY [facility] Last Admin: 05/06/17 09:52 Dose: 10 mg Methylprednisolone Sodium Succinate (Solu-Medrol -) 40 mg IVPB Q8H [facility] Last Admin: 05/06/17 09:50 Dose: 40 mg Mometasone Furoate (Asmanex 220mcg -) 1 puff IH [facility] Last Admin: 05/05/17 22:31 Dose: 1 puff Montelukast Sodium (Singulair -) 10 mg PO [facility] Last Admin: 05/05/17 22:33 Dose: 10 mg Multi-Ingredient Ointment (Zinc Oxide) 1 applic TP TID [facility] Last Admin: 05/06/17 06:41 Dose: 1 applic Nitroglycerin (Nitrostat -) 0.4 mg SL Q5M PRN PRN Reason: CHEST PAIN Pantoprazole Sodium (Protonix -) 40 mg PO DAILY [facility] Last Admin: 05/06/17 09:52 Dose: 40 mg Tamsulosin HCl (Flomax -) 0.4 mg PO DAILY@0830 [facility] Last Admin: 05/06/17 09:52 Dose: 0.4 mg - Objective Vital Signs: Vital Signs Temperature 37.1 C 05/06/17 08:36 Pulse Rate 82 05/06/17 08:36 Respiratory Rate 20 05/06/17 08:36 Blood Pressure 149/58 05/06/17 08:36 O2 Sat by Pulse Oximetry (%) 94 L 05/05/17 21:00 Constitutional: Yes: Well Nourished, No Distress, Calm Cardiovascular: Yes: Regular Rate and Rhythm. No: Gallop, Murmur, Rub Respiratory: Yes: Regular, Cough, On Nasal O2, Rhonchi. No: CTA Bilaterally, Rales, Wheezes Gastrointestinal: Yes: Normal Bowel Sounds, Soft. No: Distention, Tenderness Extremities: Yes: WNL Edema: No Labs: CBC, BMP 05/06/17 06:00 05/06/17 06:00 INR, PTT INR 1.11 (0.82-1.09) 04/28/17 14:23 Problem List - Problems (1) NSTEMI (non-ST elevated myocardial infarction) Code(s): I21.4 - NON-ST ELEVATION (NSTEMI) MYOCARDIAL INFARCTION (2) Acute and chronic respiratory failure with hypoxia Code(s): J96.21 - ACUTE AND CHRONIC RESPIRATORY FAILURE WITH HYPOXIA (3) COPD exacerbation Code(s): J44.1 - CHRONIC OBSTRUCTIVE PULMONARY DISEASE W (ACUTE) EXACERBATION (4) Sepsis Code(s): A41.9 - SEPSIS, UNSPECIFIED ORGANISM Qualifiers: Sepsis type: sepsis due to unspecified organism Qualified Code(s): A41.9 - Sepsis, unspecified organism (5) CAD (coronary artery disease) Code(s): I25.10 - ATHSCL HEART DISEASE OF [place] CORONARY ARTERY W/O ANG PCTRS Qualifiers: Coronary Disease-Associated Artery/Lesion type: [place] artery [place] vs. transplanted heart: [place] heart Associated angina: angina presence unspecified Qualified Code(s): I25.10 - Atherosclerotic heart disease of [place] coronary artery without angina pectoris (6) CHF (congestive heart failure) Code(s): I50.9 - HEART FAILURE, UNSPECIFIED Qualifiers: Congestive heart failure type: diastolic Congestive heart failure chronicity: acute on chronic Qualified Code(s): I50.33 - Acute on chronic diastolic (congestive) heart failure (7) CVA (cerebral vascular accident) Code(s): I63.9 - CEREBRAL INFARCTION, UNSPECIFIED Qualifiers: CVA mechanism: unspecified Qualified Code(s): I63.9 - Cerebral infarction, unspecified (8) UTI (urinary tract infection) Code(s): N39.0 - URINARY TRACT INFECTION, SITE NOT SPECIFIED Assessment/Plan (1) NSTEMI (non-ST elevated myocardial infarction) Assessment/Plan: -appreciate cardiology assistance -medical management Code(s): I21.4 - NON-ST ELEVATION (NSTEMI) MYOCARDIAL INFARCTION (2) Acute and chronic respiratory failure with hypoxia Assessment/Plan: -stable to slightly improved today -continue oxygen support -continue antibiotics -continue bronchodilators and solumedol Code(s): J96.21 - ACUTE AND CHRONIC RESPIRATORY FAILURE WITH HYPOXIA (3) COPD exacerbation Assessment/Plan: -as above Code(s): J44.1 - CHRONIC OBSTRUCTIVE PULMONARY DISEASE W (ACUTE) EXACERBATION (4) Sepsis Assessment/Plan -continue cefepime and vancomycin -ID following Code(s): A41.9 - SEPSIS, UNSPECIFIED ORGANISM Qualifiers: Sepsis type: sepsis due to unspecified organism Qualified Code(s): A41.9 - Sepsis, unspecified organism (5) CAD (coronary artery disease) Assessment/Plan: -continue medical management Code(s): I25.10 - ATHSCL HEART DISEASE OF [place] CORONARY ARTERY W/O ANG PCTRS Qualifiers: Coronary Disease-Associated Artery/Lesion type: [place] artery [place] vs. transplanted heart: [place] heart Associated angina: angina presence unspecified Qualified Code(s): I25.10 - Atherosclerotic heart disease of [place] coronary artery without angina pectoris (6) CHF (congestive heart failure) Assessment/Plan: -continue lasix Code(s): I50.9 - HEART FAILURE, UNSPECIFIED Qualifiers: Congestive heart failure type: diastolic Congestive heart failure chronicity: acute on chronic Qualified Code(s): (7) CVA (cerebral vascular accident) Assessment/Plan: -continue plavix Code(s): I63.9 - CEREBRAL INFARCTION, UNSPECIFIED Qualifiers: CVA mechanism: unspecified Qualified Code(s): I63.9 - Cerebral infarction, unspecified (8) UTI (urinary tract infection) Assessment/Plan: -urine cultures negative Code(s): N39.0 - URINARY TRACT INFECTION, SITE NOT SPECIFIED
--- NOTE | 2017-05-06 12:57 | PN ---
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 Sounds congested with increased coughing with patient care, while turned. Consider chest PT. Continue swallowing compensatory strategies. Monitor pulmonary status.Staff educated on silent aspiration on mbs. White patches noted on lateral edges and inferior area of tongue. Reviewed with nursing-r/o octavio. Pending ent consult to visualize larynx. Mild dysphonia.
--- NOTE | 2017-05-06 13:43 | PN ---
Progress Note, Physician History of Present Illness: patient clinically stable still with cough congestive type of picture tolerating modified diet - Current Medication List Current Medications: Active Medications Acetaminophen (Tylenol -) 650 mg PO Q6H PRN PRN Reason: FEVER OR PAIN Al Hydroxide/Mg Hydroxide (Mylanta Oral Suspension -) 30 ml PO Q6HPO [facility] Last Admin: 05/06/17 12:40 Dose: 30 ml Albuterol/Ipratropium (Duoneb -) 1 amp NEB QIDR [facility] Last Admin: 05/06/17 11:25 Dose: 1 amp Amlodipine Besylate (Norvasc -) 10 mg PO DAILY [facility] Last Admin: 05/06/17 09:52 Dose: 10 mg Aspirin (Asa -) 81 mg PO DAILY [facility] Last Admin: 05/06/17 09:52 Dose: 81 mg Atorvastatin Calcium (Lipitor -) 80 mg PO HS [facility] Last Admin: 05/05/17 22:32 Dose: 80 mg Cholecalciferol (Vitamin D3 -) 1,000 unit PO DAILY [facility] Last Admin: 05/06/17 09:52 Dose: 1,000 unit Cholestyramine Resin (Questran Light Packet -) 4 gm PO BID PRN PRN Reason: cholestrol Clopidogrel Bisulfate (Plavix -) 75 mg PO DAILY [facility] Last Admin: 05/06/17 09:51 Dose: 75 mg Enoxaparin Sodium (Lovenox -) 40 mg SQ DAILY [facility] Last Admin: 05/06/17 09:51 Dose: 40 mg Furosemide (Lasix Injection -) 40 mg IVPUSH DAILY [facility] Last Admin: 05/06/17 09:51 Dose: 40 mg Guaifenesin (Mucinex -) 600 mg PO BID [facility] Last Admin: 05/06/17 09:51 Dose: 600 mg Vancomycin HCl (Vancomycin (Pre-Docked)) 250 mls @ 250 mls/hr IVPB DAILY@1500 [facility] PRN Reason: Protocol Last Admin: 05/05/17 16:04 Dose: 250 mls/hr Cefepime HCl 1 gm/ Dextrose 100 mls @ 200 mls/hr IVPB Q8H-IV [facility] Last Admin: 05/06/17 09:52 Dose: 200 mls/hr Isosorbide Mononitrate (Imdur -) 60 mg PO DAILY [facility] Last Admin: 05/06/17 09:51 Dose: 60 mg Levetiracetam (Keppra -) 750 mg PO BID [facility] Last Admin: 05/06/17 09:51 Dose: 750 mg Loratadine (Claritin -) 10 mg PO DAILY [facility] Last Admin: 05/06/17 09:52 Dose: 10 mg Methylprednisolone Sodium Succinate (Solu-Medrol -) 40 mg IVPB Q8H [facility] Last Admin: 05/06/17 09:50 Dose: 40 mg Mometasone Furoate (Asmanex 220mcg -) 1 puff IH [facility] Last Admin: 05/05/17 22:31 Dose: 1 puff Montelukast Sodium (Singulair -) 10 mg PO [facility] Last Admin: 05/05/17 22:33 Dose: 10 mg Multi-Ingredient Ointment (Zinc Oxide) 1 applic TP TID [facility] Last Admin: 05/06/17 06:41 Dose: 1 applic Nitroglycerin (Nitrostat -) 0.4 mg SL Q5M PRN PRN Reason: CHEST PAIN Pantoprazole Sodium (Protonix -) 40 mg PO DAILY [facility] Last Admin: 05/06/17 09:52 Dose: 40 mg Tamsulosin HCl (Flomax -) 0.4 mg PO DAILY@0830 [facility] Last Admin: 05/06/17 09:52 Dose: 0.4 mg - Objective Vital Signs: Vital Signs Temperature 98.7 F 05/06/17 08:36 Pulse Rate 73 05/06/17 12:56 Respiratory Rate 20 05/06/17 08:36 Blood Pressure 149/58 05/06/17 08:36 O2 Sat by Pulse Oximetry (%) 91 L 05/06/17 12:56 Constitutional: Yes: Mild Distress, Moderate Distress Cardiovascular: Yes: Regular Rate and Rhythm Respiratory: Yes: Poor Air Entry, Rhonchi Gastrointestinal: Yes: Normal Bowel Sounds, Soft Musculoskeletal: Yes: WNL Edema: LLE: Trace, RLE: Trace Integumentary: Yes: WNL Neurological: Yes: Alert, Other Psychiatric: Yes: Alert Labs: CBC, BMP 05/06/17 06:00 05/06/17 06:00 INR, PTT INR 1.11 (0.82-1.09) 04/28/17 14:23 Assessment/Plan Problem List - Problems (1) Acute and chronic respiratory failure with hypoxia Code(s): J96.21 - ACUTE AND CHRONIC RESPIRATORY FAILURE WITH HYPOXIA (2) Pneumonia Code(s): J18.9 - PNEUMONIA, UNSPECIFIED ORGANISM Qualifiers: Pneumonia type: due to unspecified organism Laterality: bilateral Lung location: lower lobe of lung Qualified Code(s): J18.9 - Pneumonia, unspecified organism (3) COPD exacerbation Code(s): J44.1 - CHRONIC OBSTRUCTIVE PULMONARY DISEASE W (ACUTE) EXACERBATION (4) NSTEMI (non-ST elevated myocardial infarction) Code(s): I21.4 - NON-ST ELEVATION (NSTEMI) MYOCARDIAL INFARCTION (5) CAD (coronary artery disease) Code(s): I25.10 - ATHSCL HEART DISEASE OF [place] CORONARY ARTERY W/O ANG PCTRS Qualifiers: Coronary Disease-Associated Artery/Lesion type: [place] artery [place] vs. transplanted heart: [place] heart Associated angina: angina presence unspecified Qualified Code(s): I25.10 - Atherosclerotic heart disease of [place] coronary artery without angina pectoris (6) Sepsis Code(s): A41.9 - SEPSIS, UNSPECIFIED ORGANISM Qualifiers: Sepsis type: sepsis due to unspecified organism Qualified Code(s): A41.9 - Sepsis, unspecified organism (7) Lactic acidosis Code(s): E87.2 - ACIDOSIS plan continue abx monitor breathing pul on case need chest pt also i think patient should start sitting in chair incentive shelby rest as per primary team
--- NOTE | 2017-05-06 14:32 | PN ---
Progress Note (short form) - Note Progress Note: PULMONARY Breathing slightly improved from yesterday. Used BiPAP overnight. Still with nonproductive cough and wheezing. No fevers. Last Vital Signs Temp Pulse Resp BP Pulse Ox 98.7 F 73 20 149/58 91 L 05/06/17 08:36 05/06/17 12:56 05/06/17 08:36 05/06/17 08:36 05/06/17 12:56 Gen: tachypneic with speaking Heart: RRR Lung: bilateral rhonchi, wheezes Abd: soft, nontender Ext: no edema CBC, BMP 05/06/17 06:00 05/06/17 06:00 Active Medications Acetaminophen (Tylenol -) 650 mg PO Q6H PRN PRN Reason: FEVER OR PAIN Al Hydroxide/Mg Hydroxide (Mylanta Oral Suspension -) 30 ml PO Q6HPO [facility] Last Admin: 05/06/17 12:40 Dose: 30 ml Albuterol/Ipratropium (Duoneb -) 1 amp NEB QIDR [facility] Last Admin: 05/06/17 11:25 Dose: 1 amp Amlodipine Besylate (Norvasc -) 10 mg PO DAILY [facility] Last Admin: 05/06/17 09:52 Dose: 10 mg Aspirin (Asa -) 81 mg PO DAILY [facility] Last Admin: 05/06/17 09:52 Dose: 81 mg Atorvastatin Calcium (Lipitor -) 80 mg PO HS [facility] Last Admin: 05/05/17 22:32 Dose: 80 mg Cholecalciferol (Vitamin D3 -) 1,000 unit PO DAILY [facility] Last Admin: 05/06/17 09:52 Dose: 1,000 unit Cholestyramine Resin (Questran Light Packet -) 4 gm PO BID PRN PRN Reason: cholestrol Clopidogrel Bisulfate (Plavix -) 75 mg PO DAILY [facility] Last Admin: 05/06/17 09:51 Dose: 75 mg Enoxaparin Sodium (Lovenox -) 40 mg SQ DAILY [facility] Last Admin: 05/06/17 09:51 Dose: 40 mg Furosemide (Lasix Injection -) 40 mg IVPUSH DAILY [facility] Last Admin: 05/06/17 09:51 Dose: 40 mg Guaifenesin (Mucinex -) 600 mg PO BID [facility] Last Admin: 05/06/17 09:51 Dose: 600 mg Vancomycin HCl (Vancomycin (Pre-Docked)) 250 mls @ 250 mls/hr IVPB DAILY@1500 [facility] PRN Reason: Protocol Last Admin: 05/05/17 16:04 Dose: 250 mls/hr Cefepime HCl 1 gm/ Dextrose 100 mls @ 200 mls/hr IVPB Q8H-IV [facility] Last Admin: 05/06/17 09:52 Dose: 200 mls/hr Isosorbide Mononitrate (Imdur -) 60 mg PO DAILY [facility] Last Admin: 05/06/17 09:51 Dose: 60 mg Levetiracetam (Keppra -) 750 mg PO BID [facility] Last Admin: 05/06/17 09:51 Dose: 750 mg Loratadine (Claritin -) 10 mg PO DAILY [facility] Last Admin: 05/06/17 09:52 Dose: 10 mg Methylprednisolone Sodium Succinate (Solu-Medrol -) 40 mg IVPB Q8H [facility] Last Admin: 05/06/17 09:50 Dose: 40 mg Mometasone Furoate (Asmanex 220mcg -) 1 puff IH [facility] Last Admin: 05/05/17 22:31 Dose: 1 puff Montelukast Sodium (Singulair -) 10 mg PO HS [facility] Last Admin: 05/05/17 22:33 Dose: 10 mg Multi-Ingredient Ointment (Zinc Oxide) 1 applic TP TID [facility] Last Admin: 05/06/17 13:55 Dose: 1 applic Nitroglycerin (Nitrostat -) 0.4 mg SL Q5M PRN PRN Reason: CHEST PAIN Pantoprazole Sodium (Protonix -) 40 mg PO DAILY [facility] Last Admin: 05/06/17 09:52 Dose: 40 mg Tamsulosin HCl (Flomax -) 0.4 mg PO DAILY@0830 [facility] Last Admin: 05/06/17 09:52 Dose: 0.4 mg A/P Acute on Chronic Hypoxic Respiratory Failure Pneumonia Sepsis Lactic Acidosis Acute COPD Exacerbation CAD Acute NSTEMI - continue antibiotics - continue medrol at 40mg q8h, will decrease in AM if continues to improve - inhaled bronchodilators standing and PRN - O2 to keep SpO2 >90% - BiPAP at night and PRN to assist in work of breathing - pt DNR/DNI Problem List - Problems (1) Acute and chronic respiratory failure with hypoxia Code(s): J96.21 - ACUTE AND CHRONIC RESPIRATORY FAILURE WITH HYPOXIA (2) Pneumonia Code(s): J18.9 - PNEUMONIA, UNSPECIFIED ORGANISM Qualifiers: Pneumonia type: due to unspecified organism Laterality: bilateral Lung location: lower lobe of lung Qualified Code(s): J18.9 - Pneumonia, unspecified organism (3) COPD exacerbation Code(s): J44.1 - CHRONIC OBSTRUCTIVE PULMONARY DISEASE W (ACUTE) EXACERBATION (4) NSTEMI (non-ST elevated myocardial infarction) Code(s): I21.4 - NON-ST ELEVATION (NSTEMI) MYOCARDIAL INFARCTION (5) CAD (coronary artery disease) Code(s): I25.10 - ATHSCL HEART DISEASE OF [place] CORONARY ARTERY W/O ANG PCTRS Qualifiers: Coronary Disease-Associated Artery/Lesion type: [place] artery [place] vs. transplanted heart: [place] heart Associated angina: angina presence unspecified Qualified Code(s): I25.10 - Atherosclerotic heart disease of [place] coronary artery without angina pectoris (6) Sepsis Code(s): A41.9 - SEPSIS, UNSPECIFIED ORGANISM Qualifiers: Sepsis type: sepsis due to unspecified organism Qualified Code(s): A41.9 - Sepsis, unspecified organism (7) Lactic acidosis Code(s): E87.2 - ACIDOSIS
[2017-05-06] MEDS: VANCOMYCIN 1 GRAM (PRE-DOCKED) 250 ML IVPB SCH (16:09)
--- NOTE | 2017-05-06 16:54 | PN ---
Progress Note, Physician History of Present Illness: seen and examined today in nad. no overnight events. no new complaints. - Current Medication List Current Medications: Active Medications Acetaminophen (Tylenol -) 650 mg PO Q6H PRN PRN Reason: FEVER OR PAIN Al Hydroxide/Mg Hydroxide (Mylanta Oral Suspension -) 30 ml PO Q6HPO [facility] Last Admin: 05/06/17 12:40 Dose: 30 ml Albuterol/Ipratropium (Duoneb -) 1 amp NEB QIDR [facility] Last Admin: 05/06/17 11:25 Dose: 1 amp Amlodipine Besylate (Norvasc -) 10 mg PO DAILY [facility] Last Admin: 05/06/17 09:52 Dose: 10 mg Aspirin (Asa -) 81 mg PO DAILY [facility] Last Admin: 05/06/17 09:52 Dose: 81 mg Atorvastatin Calcium (Lipitor -) 80 mg PO HS [facility] Last Admin: 05/05/17 22:32 Dose: 80 mg Cholecalciferol (Vitamin D3 -) 1,000 unit PO DAILY [facility] Last Admin: 05/06/17 09:52 Dose: 1,000 unit Cholestyramine Resin (Questran Light Packet -) 4 gm PO BID PRN PRN Reason: cholestrol Clopidogrel Bisulfate (Plavix -) 75 mg PO DAILY [facility] Last Admin: 05/06/17 09:51 Dose: 75 mg Enoxaparin Sodium (Lovenox -) 40 mg SQ DAILY [facility] Last Admin: 05/06/17 09:51 Dose: 40 mg Furosemide (Lasix Injection -) 40 mg IVPUSH DAILY [facility] Last Admin: 05/06/17 09:51 Dose: 40 mg Guaifenesin (Mucinex -) 600 mg PO BID [facility] Last Admin: 05/06/17 09:51 Dose: 600 mg Vancomycin HCl (Vancomycin (Pre-Docked)) 250 mls @ 250 mls/hr IVPB DAILY@1500 [facility] PRN Reason: Protocol Last Admin: 05/06/17 16:09 Dose: 250 mls/hr Cefepime HCl 1 gm/ Dextrose 100 mls @ 200 mls/hr IVPB Q8H-IV [facility] Last Admin: 05/06/17 09:52 Dose: 200 mls/hr Isosorbide Mononitrate (Imdur -) 60 mg PO DAILY [facility] Last Admin: 05/06/17 09:51 Dose: 60 mg Levetiracetam (Keppra -) 750 mg PO BID [facility] Last Admin: 05/06/17 09:51 Dose: 750 mg Loratadine (Claritin -) 10 mg PO DAILY [facility] Last Admin: 05/06/17 09:52 Dose: 10 mg Methylprednisolone Sodium Succinate (Solu-Medrol -) 40 mg IVPB Q8H [facility] Last Admin: 05/06/17 15:48 Dose: 40 mg Mometasone Furoate (Asmanex 220mcg -) 1 puff IH [facility] Last Admin: 05/05/17 22:31 Dose: 1 puff Montelukast Sodium (Singulair -) 10 mg PO [facility] Last Admin: 05/05/17 22:33 Dose: 10 mg Multi-Ingredient Ointment (Zinc Oxide) 1 applic TP TID [facility] Last Admin: 05/06/17 13:55 Dose: 1 applic Nitroglycerin (Nitrostat -) 0.4 mg SL Q5M PRN PRN Reason: CHEST PAIN Pantoprazole Sodium (Protonix -) 40 mg PO DAILY [facility] Last Admin: 05/06/17 09:52 Dose: 40 mg Tamsulosin HCl (Flomax -) 0.4 mg PO DAILY@0830 [facility] Last Admin: 05/06/17 09:52 Dose: 0.4 mg - Objective Vital Signs: Vital Signs Temperature 97.8 F 05/06/17 15:03 Pulse Rate 84 05/06/17 15:03 Respiratory Rate 21 05/06/17 15:03 Blood Pressure 118/53 05/06/17 15:03 O2 Sat by Pulse Oximetry (%) 91 L 05/06/17 12:56 Constitutional: Yes: No Distress, Calm Eyes: Yes: Conjunctiva Clear, EOM Intact HENT: Yes: Atraumatic, Normocephalic Cardiovascular: Yes: Regular Rate and Rhythm, S1, S2. No: Bradycardia, Tachycardia, Pulse Irregular, Bruit, JVD, Gallop, Murmur, Rub, S3, S4, Varicosities Respiratory: Yes: Regular, Diminished, Rhonchi. No: Rales, Wheezes Gastrointestinal: Yes: Normal Bowel Sounds, Soft Edema: LUE: 1+, LLE: Trace, RLE: Trace Peripheral Pulses WNL: Yes Peripheral Pulses: Left Doralis Pedis: 2+, Right Dorsalis Pedis: 2+ Neurological: Yes: Alert, Oriented Psychiatric: Yes: Alert, Oriented Labs: CBC, BMP 05/06/17 06:00 05/06/17 06:00 INR, PTT INR 1.11 (0.82-1.09) 04/28/17 14:23 - ....Imaging Chest X-ray: Report Reviewed, Image Reviewed EKG: Report Reviewed, Image Reviewed Other: Report Reviewed, Image Reviewed Assessment/Plan IMP: Sepsis secondary to bilateral PNA NSTEMI Anemia REC: SOB-primarily PNA/Sepsis, possible superimposed acute diastolic CHF -receiving ABx -currently receiving IV Lasix, suspect component of edema due to 3rd spacing from hypoalbuminemia, does not appear significantly volume overloaded or with sig pulm vasc congestion on exam or Cxr -bun/creat trending up today suggesting possible developing intravascular depletion -re-evaluate bun/creat tomorrow and if cont to trend up would stop IV Lasix with plan to resume po Lasix once bun/creat stabilizes NSTEMI: enzymes trended down -plan for medical management given advanced age and multiple co-morbidities -cont asa, plavix, lipitor, imdur -bblocker was held due to copd -Repeat echo showed overall preserved LV funciton. -no additional planned inpatient cardiac work up at this time.
--- NOTE | 2017-05-06 18:31 | CON.ENT ---
Consult Consult Specialty:: ent Reason for Consultation:: eval throat - History of Present Illness Chief Complaint: eval throat History of Present Illness: 89M with multiple medical comorbidites admitted with NSTEMI. He's had cough and shortness of breath, for which Pulmonology is following him. Modified barium swallow was done showing silent aspiration. Otolaryngology consult was advised. He denies any H&N surgery and while he used to smoke, it has been many decades since he has done so. He denies sore throat. His voice sounds slightly raspy but generally stable. At rest he denies shortness of breath. He's had pneumonias in the past. No hemoptysis. Denies difficulty swallowing. 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 Cardio/Vascular: Yes: CAD, HTN Pulmonary: Yes: COPD Gastrointestinal: Yes: Other (HX OF PROGRESSIVE REGURGITATION FOR YEARS, PLACED ON OMEPRAZOLE BY PMD NO WORK UP EVER DONE DESPITE SYMPTOMS) Renal/: Yes: Cancer (prostate) - Past Surgical History Past Surgical History: Yes: Carotid Endarterectomy (carotid "stent" about 2 years go), Stent (carotid; denies cardiac stent) - Alcohol/Substance Use Hx Alcohol Use: No History of Substance Use: reports: None - Smoking History Smoking history: Unknown if ever smoked Have you smoked in the past 12 months: No Aproximately how many cigarettes per day: 0 If you are a former smoker, when did you quit?: over 20 years go - Social History Usual Living Arrangement: With Spouse ADL: Support Services History of Recent Travel: No Home Medications - Allergies Allergies/Adverse Reactions: Allergies Allergy/AdvReac Type Severity Reaction Status Date / Time Anesthetics - Angle Type- Allergy Unknown Verified 03/20/17 17:27 Parabens [Anesthetics - Angle Type] latex Allergy Verified 03/20/17 17:27 - Home Medications Home Medications: Ambulatory Orders Aa/Hydrolyzed Collagen, Whey [Lps 15-30 Liquid] 960 ml PO DAILY 04/28/17 Acetaminophen [Tylenol] 650 mg PO QID 04/28/17 Amlodipine Besylate [Norvasc -] 5 mg PO DAILY 04/28/17 Ascorbate Calcium [Vitamin C] 500 mg PO BID 04/28/17 Atorvastatin Ca [Lipitor] 10 mg PO HS 04/28/17 Cholecalciferol (Vitamin D3) [Vitamin D3 -] 1,000 unit PO DAILY 04/28/17 Cholestyramine (with Sugar) [Cholestyramine Packet] 4 gm PO BID 04/28/17 Docusate Sodium [Colace -] 100 mg PO DAILY 04/28/17 Ferrous Sulfate [Feosol] 325 mg PO BID 04/28/17 Guaifenesin [Mucinex] 600 mg PO DAILY 04/28/17 Hydralazine HCl [Apresoline -] 25 mg PO BID 04/28/17 Isosorbide Mononitrate [Imdur -] 30 mg PO DAILY 04/28/17 Levetiracetam [Keppra -] 750 mg PO BID 04/28/17 Loratadine 10 mg PO DAILY 04/28/17 Mag Hydrox/Al Hydrox/Simeth [Mylanta *Suspension*] 30 ml PO ONCE 04/28/17 Mometasone Furoate [Asmanex] 0.24 gm IH HS 04/28/17 Montelukast Na [Singulair -] 10 mg PO HS 04/28/17 Nitroglycerin [Nitrostat] 0.4 mg SL ASDIR 04/28/17 Nystatin Powder [Nystop Topical Powder -] 15 gm TP BID 04/28/17 Oxymetazoline HCl [Afrin] 15 ml NS DAILY 04/28/17 Pantoprazole Sodium [Protonix] 40 mg PO DAILY 04/28/17 Prednisone 10 mg PO DAILY 04/28/17 Solifenacin Succinate [Vesicare -] 10 mg PO DAILY 04/28/17 Tamsulosin HCl [Flomax] 0.4 mg PO DAILY 04/28/17 Tramadol HCl [Ultram] 50 mg PO Q4H 04/28/17 Zinc Oxide 20% Topical Oint 454 gm NR TID 04/28/17 Family Disease History - Family Disease History Family Disease History: Other: Father ( in his 90s), Mother ( in her 90s ) Review of Systems - Review of Systems HENT: denies: Difficult Swallowing Physical Exam-ENT Vital Signs: Vital Signs Temperature 97.7 F 05/06/17 17:12 Pulse Rate 74 05/06/17 17:12 Respiratory Rate 20 05/06/17 17:12 Blood Pressure 122/44 05/06/17 17:12 O2 Sat by Pulse Oximetry (%) 91 L 05/06/17 12:56 Constitutional: Yes: Well Nourished, No Distress, Other (periodic throat clearing. husky voice though strong. no stridor/stertor.) Head: Yes: WNL Face: Yes: WNL Eyes: Yes: WNL Nose: Yes: Other (nasal canula. clear to ant rhinoscopy) Oral/Pharynx: Yes: Other (dry mucosal membranes with diffuse candidal patches on palate, bilateral cheeks, tongue, with erythematous base.) Outer Ear: Yes: WNL Ear Canal: Yes: Cerumen Neck: Yes: Supple Respiratory: Yes: WNL Neurological: Yes: Other (CN3-7,11,12 intact & symmetrical) Imaging - Results X-ray: Report Reviewed (CXR 05/05 - RLL infiltrate) Other: Other (Flexible Fiberoptic Laryngoscopy: Explained r/b/l/a, pt consents. Passed endoscope through nose to supraglottis, withdrew. Findings: 1. Dry mucosal membranes 2. No cinda/lesions 3. Normal vocal cord mobility. 4. Absent cough reflex with stimulation of bilateral arytenoids. 5. No hypopharyngeal candidiasis 6. Dry, inspisated stranding secretions across hypopharynx. 7. Otherwise unremarkable endoscopy) Problem List - Problems (1) Pneumonia Assessment/Plan: Patient had silent aspiration and absent cough reflux with stimulation of arytenoids on endoscopy today. Etiology unclear, though no mass, and has history of CVA. He is high aspiration risk and aspiration precautions should be taken. Defer to Destinee Ha re: dietary recommendations based on his MBS Steam humidification to improve hydration of pharynx Advise nystatin for oral candidiasis DNR/DNI Thank you for this consultation. Please call with questions Code(s): J18.9 - PNEUMONIA, UNSPECIFIED ORGANISM Qualifiers: Pneumonia type: due to unspecified organism Laterality: bilateral Lung location: lower lobe of lung Qualified Code(s): J18.9 - Pneumonia, unspecified organism (2) Oral candidiasis Code(s): B37.0 - CANDIDAL STOMATITIS
[2017-05-06] MEDS: MOMETASONE FUROATE 220 MCG/IH INHALER IH SCH (21:30)
[2017-05-06] MEDS: ATORVASTATIN CA 10 MG TABLET (FP) PO SCH (21:31)
[2017-05-06] MEDS: MONTELUKAST NA 10 MG TABLET PO SCH (21:31)
[2017-05-07] MEDS ORDERED: CEFEPIME HCL 1 GM VIAL (RESTRICTED TO ID) ONE ×3 (00:23→17:44)
[2017-05-07] MEDS ORDERED: DEXTROSE 5%-WATER 100 ML IVPB ONE ×3 (00:24→17:44)
[2017-05-07] MEDS: methylPREDNISolone NA SUCC 40 MG/1 ML VIAL IVPB SCH ×3 (00:31→21:49)
[2017-05-07] MEDS: MAG HYDROX/AL HYDROX/SIMETH 30 ML UNIT-DOSE CUP PO SCH ×3 (00:32→17:49)
[2017-05-07 08:07] LABS: BASOPHIL 0.1 % (0-2.0); MCH 28.5 pg (25.7-33.7); MCHC 31.6 g/dl (32.0-35.9); MEAN CELL VOLUME 90.2 fl (80-96); MEAN PLT VOLUME 7.9 fl (7.5-11.1); NEUTROPHILS 94.7 % (42.8-82.8); PLATELET COUNT 132 K/MM3 (134-434); RDW 18.4 % (11.9-15.9); WHITE BLOOD COUNT 11.2 K/mm3 (4.0-10.0)
[2017-05-07] MEDS: TAMSULOSIN HCL 0.4 MG CAP.ER.24H (FP) PO SCH (08:39)
[2017-05-07 09:15] LABS: ANION GAP 9 (8-16); CALCIUM 7.4 mg/dL (8.5-10.1); CO2 30 mmol/L (21-32); CREATININE 0.6 mg/dL (0.7-1.3); GLUCOSE,RANDOM 174 mg/dL (74-106); PHOSPHOROUS 2.4 mg/dL (2.5-4.9)
[2017-05-07] MEDS ORDERED: PT OWN MED DRAWER 7, Y5N ONE ×3 (10:26→21:45)
[2017-05-07] MEDS: ASPIRIN 81 MG CHEWABLE TABLETS PO SCH (10:40)
[2017-05-07] MEDS: ISOSORBIDE MONONITRATE 60 MG TAB.SR.24H (FP) PO SCH (10:40)
[2017-05-07] MEDS: LORATADINE 10 MG TABLET PO SCH (10:40)
[2017-05-07] MEDS: levETIRAcetam 250 MG TABLET (FP) PO SCH ×2 (10:41→21:48)
[2017-05-07] MEDS: amLODIPine BESYLATE 10 MG TABLET (FP) PO SCH (10:41)
[2017-05-07] MEDS: guaiFENesin 600 MG TABLET.ER (FP) PO SCH ×2 (10:41→21:48)
[2017-05-07] MEDS: CLOPIDOGREL BISULFATE 75 MG TABLET (FP) PO SCH (10:42)
[2017-05-07] MEDS: CHOLECALCIFEROL (VITAMIN D3) 1,000 UNIT TABLET (FP) PO SCH (10:42)
[2017-05-07] MEDS: PANTOPRAZOLE 40 MG TABLET (FP) PO SCH (10:42)
[2017-05-07] MEDS: CEFEPIME 1 GM in DEXTROSE 5%-WATER 100 ML IVPB SCH ×2 (10:42→17:50)
[2017-05-07] MEDS: ENOXAPARIN NA (PORCINE) 40 MG/0.4 ML DISP.SYRIN SQ SCH (10:44)
[2017-05-07] MEDS: ALBUTEROL SO4 2.5/IPRATROPIUM 0.5 INH SOL 3 ML VIAL.NEB. NEB SCH ×2 (11:25→17:33)
--- NOTE | 2017-05-07 12:03 | PN ---
Progress Note (short form) - Note Progress Note: PULMONARY Breathing much improved from yesterday. Used BiPAP overnight. Coughing and wheezing less. Last Vital Signs Temp Pulse Resp BP Pulse Ox 97.6 F 74 20 120/51 91 L 05/06/17 22:00 05/06/17 22:00 05/06/17 22:00 05/06/17 22:00 05/06/17 21:00 Gen: less tachypneic Heart: RRR Lung: less rhonchi, wheezes Abd: soft, nontender Ext: no edema CBC, BMP 05/07/17 06:00 05/07/17 06:00 Active Medications Acetaminophen (Tylenol -) 650 mg PO Q6H PRN PRN Reason: FEVER OR PAIN Al Hydroxide/Mg Hydroxide (Mylanta Oral Suspension -) 30 ml PO Q6HPO [facility] Last Admin: 05/07/17 00:32 Dose: Not Given Albuterol/Ipratropium (Duoneb -) 1 amp NEB QIDR [facility] Last Admin: 05/06/17 23:48 Dose: 1 amp Amlodipine Besylate (Norvasc -) 10 mg PO DAILY [facility] Last Admin: 05/07/17 10:41 Dose: 10 mg Aspirin (Asa -) 81 mg PO DAILY [facility] Last Admin: 05/07/17 10:40 Dose: 81 mg Atorvastatin Calcium (Lipitor -) 80 mg PO HS [facility] Last Admin: 05/06/17 21:31 Dose: 80 mg Cholecalciferol (Vitamin D3 -) 1,000 unit PO DAILY [facility] Last Admin: 05/07/17 10:42 Dose: 1,000 unit Cholestyramine Resin (Questran Light Packet -) 4 gm PO BID PRN PRN Reason: cholestrol Clopidogrel Bisulfate (Plavix -) 75 mg PO DAILY [facility] Last Admin: 05/07/17 10:42 Dose: 75 mg Enoxaparin Sodium (Lovenox -) 40 mg SQ DAILY [facility] Last Admin: 05/07/17 10:44 Dose: 40 mg Guaifenesin (Mucinex -) 600 mg PO BID [facility] Last Admin: 05/07/17 10:41 Dose: 600 mg Vancomycin HCl (Vancomycin (Pre-Docked)) 250 mls @ 250 mls/hr IVPB DAILY@1500 [facility] PRN Reason: Protocol Last Admin: 05/06/17 16:09 Dose: 250 mls/hr Cefepime HCl 1 gm/ Dextrose 100 mls @ 200 mls/hr IVPB Q8H-IV [facility] Last Admin: 05/07/17 10:42 Dose: 200 mls/hr Isosorbide Mononitrate (Imdur -) 60 mg PO DAILY [facility] Last Admin: 05/07/17 10:40 Dose: 60 mg Levetiracetam (Keppra -) 750 mg PO BID [facility] Last Admin: 05/07/17 10:41 Dose: 750 mg Loratadine (Claritin -) 10 mg PO DAILY [facility] Last Admin: 05/07/17 10:40 Dose: 10 mg Methylprednisolone Sodium Succinate (Solu-Medrol -) 40 mg IVPB Q8H [facility] Last Admin: 05/07/17 08:39 Dose: 40 mg Mometasone Furoate (Asmanex 220mcg -) 1 puff IH [facility] Last Admin: 05/06/17 21:30 Dose: 1 puff Montelukast Sodium (Singulair -) 10 mg PO [facility] Last Admin: 05/06/17 21:31 Dose: 10 mg Multi-Ingredient Ointment (Zinc Oxide) 1 applic TP TID [facility] Last Admin: 05/06/17 21:31 Dose: 1 applic Nitroglycerin (Nitrostat -) 0.4 mg SL Q5M PRN PRN Reason: CHEST PAIN Pantoprazole Sodium (Protonix -) 40 mg PO DAILY [facility] Last Admin: 05/07/17 10:42 Dose: 40 mg Tamsulosin HCl (Flomax -) 0.4 mg PO DAILY@0830 [facility] Last Admin: 05/07/17 08:39 Dose: 0.4 mg A/P Acute on Chronic Hypoxic Respiratory Failure Pneumonia Sepsis Lactic Acidosis Acute COPD Exacerbation CAD Acute NSTEMI - continue antibiotics - will decrease medrol to q12h - inhaled bronchodilators standing and PRN - O2 to keep SpO2 >90% - BiPAP at night and PRN to assist in work of breathing - pt DNR/DNI Problem List - Problems (1) Acute and chronic respiratory failure with hypoxia Code(s): J96.21 - ACUTE AND CHRONIC RESPIRATORY FAILURE WITH HYPOXIA (2) Pneumonia Code(s): J18.9 - PNEUMONIA, UNSPECIFIED ORGANISM Qualifiers: Pneumonia type: due to unspecified organism Laterality: bilateral Lung location: lower lobe of lung Qualified Code(s): J18.9 - Pneumonia, unspecified organism (3) COPD exacerbation Code(s): J44.1 - CHRONIC OBSTRUCTIVE PULMONARY DISEASE W (ACUTE) EXACERBATION (4) NSTEMI (non-ST elevated myocardial infarction) Code(s): I21.4 - NON-ST ELEVATION (NSTEMI) MYOCARDIAL INFARCTION (5) CAD (coronary artery disease) Code(s): I25.10 - ATHSCL HEART DISEASE OF [place] CORONARY ARTERY W/O ANG PCTRS Qualifiers: Coronary Disease-Associated Artery/Lesion type: [place] artery [place] vs. transplanted heart: [place] heart Associated angina: angina presence unspecified Qualified Code(s): I25.10 - Atherosclerotic heart disease of [place] coronary artery without angina pectoris (6) Sepsis Code(s): A41.9 - SEPSIS, UNSPECIFIED ORGANISM Qualifiers: Sepsis type: sepsis due to unspecified organism Qualified Code(s): A41.9 - Sepsis, unspecified organism (7) Lactic acidosis Code(s): E87.2 - ACIDOSIS
--- NOTE | 2017-05-07 12:25 | PN ---
Progress Note, [employer]ERSON - Note Progress Note: Selected Entries 05/06/17 05/06/17 05/06/17 08:36 10:00 15:03 Breakfast 75% Lunch 100% Supper Temperature 98.7 F 97.8 F 05/06/17 05/06/17 05/06/17 17:12 19:26 22:00 Breakfast Lunch Supper 50% Temperature 97.7 F 97.6 F 05/07/17 09:32 Breakfast 100% Lunch Supper Temperature Laboratory Tests 05/04/17 05/05/17 05/06/17 06:20 06:00 06:00 WBC 7.6 15.5 H D 15.6 H 05/07/17 06:00 WBC 11.2 H Good appetite. High risk of aspiration with silent aspiration noted on thick liquid during mbs. 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 Decubiti. Continue dys puree, honey thick liquid on tsp only, Ensure pudding and magic cup. Educated staff on mouth care before meals, to reduce adverse affect of aspiration.
--- NOTE | 2017-05-07 14:51 | PN ---
Progress Note, Physician History of Present Illness: seen and examined today in nad. no overnight events. no new complaints. - Current Medication List Current Medications: Active Medications Acetaminophen (Tylenol -) 650 mg PO Q6H PRN PRN Reason: FEVER OR PAIN Al Hydroxide/Mg Hydroxide (Mylanta Oral Suspension -) 30 ml PO Q6HPO [facility] Last Admin: 05/07/17 12:21 Dose: 30 ml Albuterol/Ipratropium (Duoneb -) 1 amp NEB QIDR [facility] Last Admin: 05/07/17 11:25 Dose: 1 amp Amlodipine Besylate (Norvasc -) 10 mg PO DAILY [facility] Last Admin: 05/07/17 10:41 Dose: 10 mg Aspirin (Asa -) 81 mg PO DAILY [facility] Last Admin: 05/07/17 10:40 Dose: 81 mg Atorvastatin Calcium (Lipitor -) 80 mg PO HS [facility] Last Admin: 05/06/17 21:31 Dose: 80 mg Cholecalciferol (Vitamin D3 -) 1,000 unit PO DAILY [facility] Last Admin: 05/07/17 10:42 Dose: 1,000 unit Cholestyramine Resin (Questran Light Packet -) 4 gm PO BID PRN PRN Reason: cholestrol Clopidogrel Bisulfate (Plavix -) 75 mg PO DAILY [facility] Last Admin: 05/07/17 10:42 Dose: 75 mg Enoxaparin Sodium (Lovenox -) 40 mg SQ DAILY [facility] Last Admin: 05/07/17 10:44 Dose: 40 mg Guaifenesin (Mucinex -) 600 mg PO BID [facility] Last Admin: 05/07/17 10:41 Dose: 600 mg Vancomycin HCl (Vancomycin (Pre-Docked)) 250 mls @ 250 mls/hr IVPB DAILY@1500 [facility] PRN Reason: Protocol Last Admin: 05/06/17 16:09 Dose: 250 mls/hr Cefepime HCl 1 gm/ Dextrose 100 mls @ 200 mls/hr IVPB Q8H-IV [facility] Last Admin: 05/07/17 10:42 Dose: 200 mls/hr Isosorbide Mononitrate (Imdur -) 60 mg PO DAILY [facility] Last Admin: 05/07/17 10:40 Dose: 60 mg Levetiracetam (Keppra -) 750 mg PO BID [facility] Last Admin: 05/07/17 10:41 Dose: 750 mg Loratadine (Claritin -) 10 mg PO DAILY [facility] Last Admin: 05/07/17 10:40 Dose: 10 mg Methylprednisolone Sodium Succinate (Solu-Medrol -) 40 mg IVPB BID [facility] Mometasone Furoate (Asmanex 220mcg -) 1 puff IH HS [facility] Last Admin: 05/06/17 21:30 Dose: 1 puff Montelukast Sodium (Singulair -) 10 mg PO HS [facility] Last Admin: 05/06/17 21:31 Dose: 10 mg Multi-Ingredient Ointment (Zinc Oxide) 1 applic TP TID [facility] Last Admin: 05/06/17 21:31 Dose: 1 applic Nitroglycerin (Nitrostat -) 0.4 mg SL Q5M PRN PRN Reason: CHEST PAIN Nystatin (Nystatin Oral Suspension -) 500,000 units PO Q6HPO [facility] Pantoprazole Sodium (Protonix -) 40 mg PO DAILY [facility] Last Admin: 05/07/17 10:42 Dose: 40 mg Tamsulosin HCl (Flomax -) 0.4 mg PO DAILY@0830 [facility] Last Admin: 05/07/17 08:39 Dose: 0.4 mg - Objective Vital Signs: Vital Signs Temperature 97 F L 05/07/17 09:15 Pulse Rate 75 05/07/17 11:25 Respiratory Rate 20 05/07/17 09:15 Blood Pressure 141/55 05/07/17 09:15 O2 Sat by Pulse Oximetry (%) 95 05/07/17 11:25 Constitutional: Yes: No Distress, Calm Eyes: Yes: Conjunctiva Clear, EOM Intact HENT: Yes: Atraumatic, Normocephalic Neck: Yes: Supple, Trachea Midline Cardiovascular: Yes: Regular Rate and Rhythm, S1, S2. No: Bradycardia, Tachycardia, Pulse Irregular, Bruit, JVD, Gallop, Murmur, Rub, S3, S4, Varicosities Respiratory: Yes: Regular, Diminished, Rhonchi. No: Rales, Wheezes Gastrointestinal: Yes: Normal Bowel Sounds, Soft. No: Distention, Tenderness Musculoskeletal: Yes: Muscle Weakness Edema: LUE: Trace Peripheral Pulses WNL: Yes Peripheral Pulses: Left Doralis Pedis: 2+, Right Dorsalis Pedis: 2+ Neurological: Yes: Alert Psychiatric: Yes: Alert Labs: CBC, BMP 05/07/17 06:00 05/07/17 06:00 INR, PTT INR 1.11 (0.82-1.09) 04/28/17 14:23 - ....Imaging Chest X-ray: Report Reviewed, Image Reviewed EKG: Report Reviewed, Image Reviewed Other: Report Reviewed, Image Reviewed Assessment/Plan IMP: Sepsis secondary to bilateral PNA NSTEMI Anemia SOB REC: SOB-primarily PNA/Sepsis, possible superimposed acute diastolic CHF -receiving ABx -stopped IV Lasix due to suspected developing intravascular depletion, can dose Lasix prn at this point with plan to reconsider po Lasix tomorrow if bun/creat stable -suspect component of edema due to 3rd spacing from hypoalbuminemia, does not appear significantly volume overloaded or with sig pulm vasc congestion on exam or Cxr NSTEMI: enzymes trended down -plan for medical management given advanced age and multiple co-morbidities -cont asa, plavix, lipitor, imdur -bblocker was held due to copd -Repeat echo showed overall preserved LV funciton. -no additional planned inpatient cardiac work up at this time.
--- NOTE | 2017-05-07 15:03 | PN ---
Progress Note, Physician - Current Medication List Current Medications: Active Medications Acetaminophen (Tylenol -) 650 mg PO Q6H PRN PRN Reason: FEVER OR PAIN Al Hydroxide/Mg Hydroxide (Mylanta Oral Suspension -) 30 ml PO Q6HPO [facility] Last Admin: 05/07/17 12:21 Dose: 30 ml Albuterol/Ipratropium (Duoneb -) 1 amp NEB QIDR [facility] Last Admin: 05/07/17 11:25 Dose: 1 amp Amlodipine Besylate (Norvasc -) 10 mg PO DAILY [facility] Last Admin: 05/07/17 10:41 Dose: 10 mg Aspirin (Asa -) 81 mg PO DAILY [facility] Last Admin: 05/07/17 10:40 Dose: 81 mg Atorvastatin Calcium (Lipitor -) 80 mg PO HS [facility] Last Admin: 05/06/17 21:31 Dose: 80 mg Cholecalciferol (Vitamin D3 -) 1,000 unit PO DAILY [facility] Last Admin: 05/07/17 10:42 Dose: 1,000 unit Cholestyramine Resin (Questran Light Packet -) 4 gm PO BID PRN PRN Reason: cholestrol Clopidogrel Bisulfate (Plavix -) 75 mg PO DAILY [facility] Last Admin: 05/07/17 10:42 Dose: 75 mg Enoxaparin Sodium (Lovenox -) 40 mg SQ DAILY [facility] Last Admin: 05/07/17 10:44 Dose: 40 mg Guaifenesin (Mucinex -) 600 mg PO BID [facility] Last Admin: 05/07/17 10:41 Dose: 600 mg Vancomycin HCl (Vancomycin (Pre-Docked)) 250 mls @ 250 mls/hr IVPB DAILY@1500 [facility] PRN Reason: Protocol Last Admin: 05/06/17 16:09 Dose: 250 mls/hr Cefepime HCl 1 gm/ Dextrose 100 mls @ 200 mls/hr IVPB Q8H-IV [facility] Last Admin: 05/07/17 10:42 Dose: 200 mls/hr Isosorbide Mononitrate (Imdur -) 60 mg PO DAILY [facility] Last Admin: 05/07/17 10:40 Dose: 60 mg Levetiracetam (Keppra -) 750 mg PO BID [facility] Last Admin: 05/07/17 10:41 Dose: 750 mg Loratadine (Claritin -) 10 mg PO DAILY [facility] Last Admin: 05/07/17 10:40 Dose: 10 mg Methylprednisolone Sodium Succinate (Solu-Medrol -) 40 mg IVPB BID [facility] Mometasone Furoate (Asmanex 220mcg -) 1 puff IH [facility] Last Admin: 05/06/17 21:30 Dose: 1 puff Montelukast Sodium (Singulair -) 10 mg PO HS [facility] Last Admin: 05/06/17 21:31 Dose: 10 mg Multi-Ingredient Ointment (Zinc Oxide) 1 applic TP TID [facility] Last Admin: 05/06/17 21:31 Dose: 1 applic Nitroglycerin (Nitrostat -) 0.4 mg SL Q5M PRN PRN Reason: CHEST PAIN Nystatin (Nystatin Oral Suspension -) 500,000 units PO Q6HPO [facility] Pantoprazole Sodium (Protonix -) 40 mg PO DAILY [facility] Last Admin: 05/07/17 10:42 Dose: 40 mg Tamsulosin HCl (Flomax -) 0.4 mg PO DAILY@0830 [facility] Last Admin: 05/07/17 08:39 Dose: 0.4 mg - Objective Vital Signs: Vital Signs Temperature 36.1 C L 05/07/17 09:15 Pulse Rate 75 05/07/17 11:25 Respiratory Rate 20 05/07/17 09:15 Blood Pressure 141/55 05/07/17 09:15 O2 Sat by Pulse Oximetry (%) 95 05/07/17 11:25 Constitutional: Yes: Well Nourished, No Distress, Calm Cardiovascular: Yes: Regular Rate and Rhythm. No: Gallop, Murmur, Rub Respiratory: Yes: Regular, On Nasal O2, Rhonchi. No: CTA Bilaterally, Rales, Wheezes Gastrointestinal: Yes: Normal Bowel Sounds, Soft. No: Distention, Tenderness Extremities: Yes: WNL Edema: No Labs: CBC, BMP 05/07/17 06:00 05/07/17 06:00 INR, PTT INR 1.11 (0.82-1.09) 04/28/17 14:23 Problem List - Problems (1) NSTEMI (non-ST elevated myocardial infarction) Code(s): I21.4 - NON-ST ELEVATION (NSTEMI) MYOCARDIAL INFARCTION (2) Acute and chronic respiratory failure with hypoxia Code(s): J96.21 - ACUTE AND CHRONIC RESPIRATORY FAILURE WITH HYPOXIA (3) COPD exacerbation Code(s): J44.1 - CHRONIC OBSTRUCTIVE PULMONARY DISEASE W (ACUTE) EXACERBATION (4) Sepsis Code(s): A41.9 - SEPSIS, UNSPECIFIED ORGANISM Qualifiers: Sepsis type: sepsis due to unspecified organism Qualified Code(s): A41.9 - Sepsis, unspecified organism (5) CAD (coronary artery disease) Code(s): I25.10 - ATHSCL HEART DISEASE OF [place] CORONARY ARTERY W/O ANG PCTRS Qualifiers: Coronary Disease-Associated Artery/Lesion type: [place] artery [place] vs. transplanted heart: [place] heart Associated angina: angina presence unspecified Qualified Code(s): I25.10 - Atherosclerotic heart disease of [place] coronary artery without angina pectoris (6) CHF (congestive heart failure) Code(s): I50.9 - HEART FAILURE, UNSPECIFIED Qualifiers: Congestive heart failure type: diastolic Congestive heart failure chronicity: acute on chronic Qualified Code(s): I50.33 - Acute on chronic diastolic (congestive) heart failure (7) CVA (cerebral vascular accident) Code(s): I63.9 - CEREBRAL INFARCTION, UNSPECIFIED Qualifiers: CVA mechanism: unspecified Qualified Code(s): I63.9 - Cerebral infarction, unspecified (8) UTI (urinary tract infection) Code(s): N39.0 - URINARY TRACT INFECTION, SITE NOT SPECIFIED Assessment/Plan (1) NSTEMI (non-ST elevated myocardial infarction) Assessment/Plan: -appreciate cardiology assistance -medical management Code(s): I21.4 - NON-ST ELEVATION (NSTEMI) MYOCARDIAL INFARCTION (2) Acute and chronic respiratory failure with hypoxia Assessment/Plan: -improved today -pulmonary following and note reviewed -continue antibiotics and bronchodilators -taper medrol Code(s): J96.21 - ACUTE AND CHRONIC RESPIRATORY FAILURE WITH HYPOXIA (3) COPD exacerbation Assessment/Plan: -as above Code(s): J44.1 - CHRONIC OBSTRUCTIVE PULMONARY DISEASE W (ACUTE) EXACERBATION (4) Sepsis Assessment/Plan -continue cefepime and vancomycin -ID following Code(s): A41.9 - SEPSIS, UNSPECIFIED ORGANISM Qualifiers: Sepsis type: sepsis due to unspecified organism Qualified Code(s): A41.9 - Sepsis, unspecified organism (5) CAD (coronary artery disease) Assessment/Plan: -continue medical management Code(s): I25.10 - ATHSCL HEART DISEASE OF [place] CORONARY ARTERY W/O ANG PCTRS Qualifiers: Coronary Disease-Associated Artery/Lesion type: [place] artery [place] vs. transplanted heart: [place] heart Associated angina: angina presence unspecified Qualified Code(s): I25.10 - Atherosclerotic heart disease of [place] coronary artery without angina pectoris (6) CHF (congestive heart failure) Assessment/Plan: -hold lasix today -case d/w cardiology Code(s): I50.9 - HEART FAILURE, UNSPECIFIED Qualifiers: Congestive heart failure type: diastolic Congestive heart failure chronicity: acute on chronic Qualified Code(s): (7) CVA (cerebral vascular accident) Assessment/Plan: -continue plavix Code(s): I63.9 - CEREBRAL INFARCTION, UNSPECIFIED Qualifiers: CVA mechanism: unspecified Qualified Code(s): I63.9 - Cerebral infarction, unspecified (8) UTI (urinary tract infection) Assessment/Plan: -urine cultures negative Code(s): N39.0 - URINARY TRACT INFECTION, SITE NOT SPECIFIED
[2017-05-07] MEDS: ZINC OXIDE 20% TOPICAL OINTMENT 30 GM TUBE TP SCH ×2 (15:13→21:52)
[2017-05-07] MEDS: VANCOMYCIN 1 GRAM (PRE-DOCKED) 250 ML IVPB SCH (15:13)
--- NOTE | 2017-05-07 15:33 | PN ---
Progress Note, Physician History of Present Illness: very congested still bringing out lot of mucus weak - Current Medication List Current Medications: Active Medications Acetaminophen (Tylenol -) 650 mg PO Q6H PRN PRN Reason: FEVER OR PAIN Al Hydroxide/Mg Hydroxide (Mylanta Oral Suspension -) 30 ml PO Q6HPO [facility] Last Admin: 05/07/17 12:21 Dose: 30 ml Albuterol/Ipratropium (Duoneb -) 1 amp NEB QIDR [facility] Last Admin: 05/07/17 11:25 Dose: 1 amp Amlodipine Besylate (Norvasc -) 10 mg PO DAILY [facility] Last Admin: 05/07/17 10:41 Dose: 10 mg Aspirin (Asa -) 81 mg PO DAILY [facility] Last Admin: 05/07/17 10:40 Dose: 81 mg Atorvastatin Calcium (Lipitor -) 80 mg PO HS [facility] Last Admin: 05/06/17 21:31 Dose: 80 mg Cholecalciferol (Vitamin D3 -) 1,000 unit PO DAILY [facility] Last Admin: 05/07/17 10:42 Dose: 1,000 unit Cholestyramine Resin (Questran Light Packet -) 4 gm PO BID PRN PRN Reason: cholestrol Clopidogrel Bisulfate (Plavix -) 75 mg PO DAILY [facility] Last Admin: 05/07/17 10:42 Dose: 75 mg Enoxaparin Sodium (Lovenox -) 40 mg SQ DAILY [facility] Last Admin: 05/07/17 10:44 Dose: 40 mg Guaifenesin (Mucinex -) 600 mg PO BID [facility] Last Admin: 05/07/17 10:41 Dose: 600 mg Vancomycin HCl (Vancomycin (Pre-Docked)) 250 mls @ 250 mls/hr IVPB DAILY@1500 [facility] PRN Reason: Protocol Last Admin: 05/07/17 15:13 Dose: 250 mls/hr Cefepime HCl 1 gm/ Dextrose 100 mls @ 200 mls/hr IVPB Q8H-IV [facility] Last Admin: 05/07/17 10:42 Dose: 200 mls/hr Isosorbide Mononitrate (Imdur -) 60 mg PO DAILY [facility] Last Admin: 05/07/17 10:40 Dose: 60 mg Levetiracetam (Keppra -) 750 mg PO BID [facility] Last Admin: 05/07/17 10:41 Dose: 750 mg Loratadine (Claritin -) 10 mg PO DAILY [facility] Last Admin: 05/07/17 10:40 Dose: 10 mg Methylprednisolone Sodium Succinate (Solu-Medrol -) 40 mg IVPB BID [facility] Mometasone Furoate (Asmanex 220mcg -) 1 puff IH [facility] Last Admin: 05/06/17 21:30 Dose: 1 puff Montelukast Sodium (Singulair -) 10 mg PO HS [facility] Last Admin: 05/06/17 21:31 Dose: 10 mg Multi-Ingredient Ointment (Zinc Oxide) 1 applic TP TID [facility] Last Admin: 05/07/17 15:13 Dose: 1 applic Nitroglycerin (Nitrostat -) 0.4 mg SL Q5M PRN PRN Reason: CHEST PAIN Nystatin (Nystatin Oral Suspension -) 500,000 units PO Q6HPO [facility] Pantoprazole Sodium (Protonix -) 40 mg PO DAILY [facility] Last Admin: 05/07/17 10:42 Dose: 40 mg Tamsulosin HCl (Flomax -) 0.4 mg PO DAILY@0830 [facility] Last Admin: 05/07/17 08:39 Dose: 0.4 mg - Objective Vital Signs: Vital Signs Temperature 97 F L 05/07/17 09:15 Pulse Rate 75 05/07/17 11:25 Respiratory Rate 20 05/07/17 09:15 Blood Pressure 141/55 05/07/17 09:15 O2 Sat by Pulse Oximetry (%) 95 05/07/17 11:25 Constitutional: Yes: No Distress, Calm HENT: Yes: Atraumatic Cardiovascular: Yes: Regular Rate and Rhythm Respiratory: Yes: On BiPap, On Nasal O2, Poor Air Entry Gastrointestinal: Yes: Normal Bowel Sounds, Soft Musculoskeletal: Yes: WNL Extremities: Yes: WNL Neurological: Yes: Alert Psychiatric: Yes: Alert Labs: CBC, BMP 05/07/17 06:00 05/07/17 06:00 INR, PTT INR 1.11 (0.82-1.09) 04/28/17 14:23 Assessment/Plan Problem List - Problems (1) Acute and chronic respiratory failure with hypoxia Code(s): J96.21 - ACUTE AND CHRONIC RESPIRATORY FAILURE WITH HYPOXIA (2) Pneumonia Code(s): J18.9 - PNEUMONIA, UNSPECIFIED ORGANISM Qualifiers: Pneumonia type: due to unspecified organism Laterality: bilateral Lung location: lower lobe of lung Qualified Code(s): J18.9 - Pneumonia, unspecified organism (3) COPD exacerbation Code(s): J44.1 - CHRONIC OBSTRUCTIVE PULMONARY DISEASE W (ACUTE) EXACERBATION (4) NSTEMI (non-ST elevated myocardial infarction) Code(s): I21.4 - NON-ST ELEVATION (NSTEMI) MYOCARDIAL INFARCTION (5) CAD (coronary artery disease) Code(s): I25.10 - ATHSCL HEART DISEASE OF [place] CORONARY ARTERY W/O ANG PCTRS Qualifiers: Coronary Disease-Associated Artery/Lesion type: [place] artery [place] vs. transplanted heart: [place] heart Associated angina: angina presence unspecified Qualified Code(s): I25.10 - Atherosclerotic heart disease of [place] coronary artery without angina pectoris (6) Sepsis Code(s): A41.9 - SEPSIS, UNSPECIFIED ORGANISM Qualifiers: Sepsis type: sepsis due to unspecified organism Qualified Code(s): A41.9 - Sepsis, unspecified organism (7) Lactic acidosis Code(s): E87.2 - ACIDOSIS plan continue abx monitor breathing pul on case physio
[2017-05-07] MEDS: NYSTATIN 500,000 UNITS/5 ML SUSPENSION PO SCH (17:49)
[2017-05-07] MEDS: ATORVASTATIN CA 10 MG TABLET (FP) PO SCH (21:47)
[2017-05-07] MEDS: MONTELUKAST NA 10 MG TABLET PO SCH (21:49)
[2017-05-07] MEDS: MOMETASONE FUROATE 220 MCG/IH INHALER IH SCH (21:50)
[2017-05-08] MEDS: NYSTATIN 500,000 UNITS/5 ML SUSPENSION PO SCH ×4 (01:10→17:40)
[2017-05-08] MEDS: MAG HYDROX/AL HYDROX/SIMETH 30 ML UNIT-DOSE CUP PO SCH ×3 (01:10→20:48)
[2017-05-08] MEDS ORDERED: DEXTROSE 5%-WATER 100 ML IVPB ONE ×3 (01:13→17:28)
[2017-05-08] MEDS ORDERED: CEFEPIME HCL 1 GM VIAL (RESTRICTED TO ID) ONE ×3 (01:13→17:28)
[2017-05-08] MEDS: CEFEPIME 1 GM in DEXTROSE 5%-WATER 100 ML IVPB SCH ×4 (01:19→20:46)
[2017-05-08] MEDS: ALBUTEROL SO4 2.5/IPRATROPIUM 0.5 INH SOL 3 ML VIAL.NEB. NEB SCH ×4 (06:03→23:16)
[2017-05-08] MEDS: ZINC OXIDE 20% TOPICAL OINTMENT 30 GM TUBE TP SCH ×4 (06:22→21:35)
[2017-05-08] MEDS: TAMSULOSIN HCL 0.4 MG CAP.ER.24H (FP) PO SCH (08:32)
[2017-05-08 09:07] LABS: MCH 28.8 pg (25.7-33.7); MCHC 31.7 g/dl (32.0-35.9); MEAN CELL VOLUME 90.7 fl (80-96); MEAN PLT VOLUME 8.2 fl (7.5-11.1); PLATELET COUNT 140 K/MM3 (134-434); RDW 18.7 % (11.9-15.9); WHITE BLOOD COUNT 15.2 K/mm3 (4.0-10.0)
[2017-05-08 09:24] LABS: ANION GAP 8 (8-16); CALCIUM 7.8 mg/dL (8.5-10.1); CO2 31 mmol/L (21-32); CREATININE 0.6 mg/dL (0.7-1.3); GLUCOSE,RANDOM 173 mg/dL (74-106)
[2017-05-08] MEDS ORDERED: PT OWN MED DRAWER 7, Y5N ONE (09:49)
[2017-05-08] MEDS: ASPIRIN 81 MG CHEWABLE TABLETS PO SCH (10:01)
[2017-05-08 10:02] LABS: PLATELET ESTIMATE DECREASED (NORMAL); TOTAL CELLS COUNTED 100
[2017-05-08] MEDS: ISOSORBIDE MONONITRATE 60 MG TAB.SR.24H (FP) PO SCH (10:02)
[2017-05-08] MEDS: LORATADINE 10 MG TABLET PO SCH (10:02)
[2017-05-08] MEDS: levETIRAcetam 250 MG TABLET (FP) PO SCH ×2 (10:02→21:33)
[2017-05-08] MEDS: amLODIPine BESYLATE 10 MG TABLET (FP) PO SCH (10:03)
[2017-05-08] MEDS: CLOPIDOGREL BISULFATE 75 MG TABLET (FP) PO SCH (10:03)
[2017-05-08] MEDS: guaiFENesin 600 MG TABLET.ER (FP) PO SCH ×2 (10:03→21:32)
[2017-05-08] MEDS: PANTOPRAZOLE 40 MG TABLET (FP) PO SCH (10:04)
[2017-05-08] MEDS: CHOLECALCIFEROL (VITAMIN D3) 1,000 UNIT TABLET (FP) PO SCH (10:04)
[2017-05-08] MEDS: methylPREDNISolone NA SUCC 40 MG/1 ML VIAL IVPB SCH ×2 (10:05→21:34)
[2017-05-08] MEDS: ENOXAPARIN NA (PORCINE) 40 MG/0.4 ML DISP.SYRIN SQ SCH (10:06)
--- NOTE | 2017-05-08 11:23 | PN ---
Progress Note, Physician Chief Complaint: Mr Oropeza says he is feeling better today, still with coughing. Denies cp or n /v. Cannot tell me how his breathing is. - Current Medication List Current Medications: Active Medications Acetaminophen (Tylenol -) 650 mg PO Q6H PRN PRN Reason: FEVER OR PAIN Albuterol/Ipratropium (Duoneb -) 1 amp NEB QIDR [facility] Last Admin: 05/08/17 06:03 Dose: 1 amp Amlodipine Besylate (Norvasc -) 10 mg PO DAILY [facility] Last Admin: 05/08/17 10:03 Dose: 10 mg Aspirin (Asa -) 81 mg PO DAILY [facility] Last Admin: 05/08/17 10:01 Dose: 81 mg Atorvastatin Calcium (Lipitor -) 80 mg PO HS [facility] Last Admin: 05/07/17 21:47 Dose: 80 mg Cholecalciferol (Vitamin D3 -) 1,000 unit PO DAILY [facility] Last Admin: 05/08/17 10:04 Dose: 1,000 unit Cholestyramine Resin (Questran Light Packet -) 4 gm PO BID PRN PRN Reason: cholestrol Clopidogrel Bisulfate (Plavix -) 75 mg PO DAILY [facility] Last Admin: 05/08/17 10:03 Dose: 75 mg Enoxaparin Sodium (Lovenox -) 40 mg SQ DAILY [facility] Last Admin: 05/08/17 10:06 Dose: 40 mg Guaifenesin (Mucinex -) 600 mg PO BID [facility] Last Admin: 05/08/17 10:03 Dose: 600 mg Vancomycin HCl (Vancomycin (Pre-Docked)) 250 mls @ 250 mls/hr IVPB DAILY@1500 [facility] PRN Reason: Protocol Last Admin: 05/07/17 15:13 Dose: 250 mls/hr Cefepime HCl 1 gm/ Dextrose 100 mls @ 200 mls/hr IVPB Q8H-IV [facility] Last Admin: 05/08/17 10:04 Dose: 200 mls/hr Isosorbide Mononitrate (Imdur -) 60 mg PO DAILY [facility] Last Admin: 05/08/17 10:02 Dose: 60 mg Levetiracetam (Keppra -) 750 mg PO BID [facility] Last Admin: 05/08/17 10:02 Dose: 750 mg Loratadine (Claritin -) 10 mg PO DAILY [facility] Last Admin: 05/08/17 10:02 Dose: 10 mg Methylprednisolone Sodium Succinate (Solu-Medrol -) 40 mg IVPB BID [facility] Last Admin: 05/08/17 10:05 Dose: 40 mg Mometasone Furoate (Asmanex 220mcg -) 1 puff IH [facility] Last Admin: 05/07/17 21:50 Dose: 1 puff Montelukast Sodium (Singulair -) 10 mg PO HS [facility] Last Admin: 05/07/17 21:49 Dose: 10 mg Multi-Ingredient Ointment (Zinc Oxide) 1 applic TP TID [facility] Last Admin: 05/08/17 06:22 Dose: 1 applic Nitroglycerin (Nitrostat -) 0.4 mg SL Q5M PRN PRN Reason: CHEST PAIN Nystatin (Nystatin Oral Suspension -) 500,000 units PO Q6HPO [facility] Last Admin: 05/08/17 06:21 Dose: 500,000 units Pantoprazole Sodium (Protonix -) 40 mg PO DAILY [facility] Last Admin: 05/08/17 10:04 Dose: 40 mg Potassium Phos/Sodium Phos (Phos-Nak Packet -) 1 packet PO TID [facility] Tamsulosin HCl (Flomax -) 0.4 mg PO DAILY@0830 [facility] Last Admin: 05/08/17 08:32 Dose: 0.4 mg - Objective Vital Signs: Vital Signs Temperature 36.5 C 05/08/17 08:00 Pulse Rate 74 05/08/17 08:00 Respiratory Rate 18 05/08/17 08:00 Blood Pressure 124/43 05/08/17 08:00 O2 Sat by Pulse Oximetry (%) 95 05/07/17 21:00 Constitutional: Yes: Well Nourished, No Distress, Calm Cardiovascular: Yes: Regular Rate and Rhythm. No: Gallop, Murmur, Rub Respiratory: Yes: Regular, Cough, On Nasal O2, Rhonchi (improving). No: Rales, Wheezes Gastrointestinal: Yes: Normal Bowel Sounds, Soft. No: Distention, Tenderness Extremities: Yes: WNL Edema: Yes Edema: LUE: 1+, RUE: 1+ Labs: CBC, BMP 05/08/17 08:15 05/08/17 08:15 INR, PTT INR 1.11 (0.82-1.09) 04/28/17 14:23 Problem List - Problems (1) NSTEMI (non-ST elevated myocardial infarction) Code(s): I21.4 - NON-ST ELEVATION (NSTEMI) MYOCARDIAL INFARCTION (2) Acute and chronic respiratory failure with hypoxia Code(s): J96.21 - ACUTE AND CHRONIC RESPIRATORY FAILURE WITH HYPOXIA (3) COPD exacerbation Code(s): J44.1 - CHRONIC OBSTRUCTIVE PULMONARY DISEASE W (ACUTE) EXACERBATION (4) Sepsis Code(s): A41.9 - SEPSIS, UNSPECIFIED ORGANISM Qualifiers: Sepsis type: sepsis due to unspecified organism Qualified Code(s): A41.9 - Sepsis, unspecified organism (5) CAD (coronary artery disease) Code(s): I25.10 - ATHSCL HEART DISEASE OF [place] CORONARY ARTERY W/O ANG PCTRS Qualifiers: Coronary Disease-Associated Artery/Lesion type: [place] artery [place] vs. transplanted heart: [place] heart Associated angina: angina presence unspecified Qualified Code(s): I25.10 - Atherosclerotic heart disease of [place] coronary artery without angina pectoris (6) CHF (congestive heart failure) Code(s): I50.9 - HEART FAILURE, UNSPECIFIED Qualifiers: Congestive heart failure type: diastolic Congestive heart failure chronicity: acute on chronic Qualified Code(s): I50.33 - Acute on chronic diastolic (congestive) heart failure (7) CVA (cerebral vascular accident) Code(s): I63.9 - CEREBRAL INFARCTION, UNSPECIFIED Qualifiers: CVA mechanism: unspecified Qualified Code(s): I63.9 - Cerebral infarction, unspecified (8) UTI (urinary tract infection) Code(s): N39.0 - URINARY TRACT INFECTION, SITE NOT SPECIFIED Assessment/Plan (1) NSTEMI (non-ST elevated myocardial infarction) Assessment/Plan: -appreciate cardiology assistance -medical management Code(s): I21.4 - NON-ST ELEVATION (NSTEMI) MYOCARDIAL INFARCTION (2) Acute and chronic respiratory failure with hypoxia Assessment/Plan: -continues to improve -pulmonary following -continue solumedrol, taper per pulmonary -continue bronchodilators Code(s): J96.21 - ACUTE AND CHRONIC RESPIRATORY FAILURE WITH HYPOXIA (3) COPD exacerbation Assessment/Plan: -as above Code(s): J44.1 - CHRONIC OBSTRUCTIVE PULMONARY DISEASE W (ACUTE) EXACERBATION (4) Sepsis Assessment/Plan -continue cefepime and vancomycin -ID following -duration per Dr Farley Code(s): A41.9 - SEPSIS, UNSPECIFIED ORGANISM Qualifiers: Sepsis type: sepsis due to unspecified organism Qualified Code(s): A41.9 - Sepsis, unspecified organism (5) CAD (coronary artery disease) Assessment/Plan: -continue medical management Code(s): I25.10 - ATHSCL HEART DISEASE OF [place] CORONARY ARTERY W/O ANG PCTRS Qualifiers: Coronary Disease-Associated Artery/Lesion type: [place] artery [place] vs. transplanted heart: [place] heart Associated angina: angina presence unspecified Qualified Code(s): I25.10 - Atherosclerotic heart disease of [place] coronary artery without angina pectoris (6) CHF (congestive heart failure) Assessment/Plan: -patient with edema -cardiology to see -may need low dose lasix Code(s): I50.9 - HEART FAILURE, UNSPECIFIED Qualifiers: Congestive heart failure type: diastolic Congestive heart failure chronicity: acute on chronic Qualified Code(s): (7) CVA (cerebral vascular accident) Assessment/Plan: -continue plavix Code(s): I63.9 - CEREBRAL INFARCTION, UNSPECIFIED Qualifiers: CVA mechanism: unspecified Qualified Code(s): I63.9 - Cerebral infarction, unspecified (8) UTI (urinary tract infection) Assessment/Plan: -urine cultures negative Code(s): N39.0 - URINARY TRACT INFECTION, SITE NOT SPECIFIED (9) Hypermagnesemia -stop maalox
--- NOTE | 2017-05-08 12:58 | PN ---
Progress Note, [facility] - Note Progress Note: Selected Entries 05/06/17 05/06/17 05/06/17 08:36 10:00 15:03 Breakfast 75% Lunch 100% Supper Temperature 98.7 F 97.8 F 05/06/17 05/06/17 05/06/17 17:12 19:26 22:00 Breakfast Lunch Supper 50% Temperature 97.7 F 97.6 F 05/07/17 09:32 Breakfast 100% Lunch Supper Temperature Laboratory Tests 05/04/17 05/05/17 05/06/17 06:20 06:00 06:00 WBC 7.6 15.5 H D 15.6 H 05/07/17 06:00 WBC 11.2 H Selected Entries 05/07/17 05/07/17 05/07/17 09:15 09:32 15:24 Breakfast 100% Lunch 75% Temperature 97 F L 96.3 F L 05/07/17 05/07/17 05/08/17 18:28 22:00 06:00 Breakfast Lunch Temperature 98.2 F 98.1 F 97.8 F 05/08/17 05/08/17 08:00 09:49 Breakfast 75% Lunch Temperature 97.7 F Laboratory Tests 05/07/17 05/08/17 06:00 08:15 WBC 11.2 H 15.2 H D Being treated for thrush. Tongue still with coated on superior and inferior surfaces. Suggest PMD reassess re medical mgmt. Pt with a lot of secretions, requiring suctioning.Wheezing yesterday,coughing today. Last cxr 05/05. Persistent Aspiration? Continue dys puree, Ensure pudding and magic cup. Educated staff on mouth care before meals, to reduce adverse affect of aspiration. Consider holding PO fluids? until pulmonary status improves? Reviewed with staff.
[2017-05-08] MEDS: NAPH,MB-DB/K PH,MBDB POWDER PACKET PO SCH ×2 (13:52→21:34)
--- NOTE | 2017-05-08 13:54 | PN ---
Progress Note, Physician History of Present Illness: patient stable doing well feels much better congestion and cough less breathing better - Current Medication List Current Medications: Active Medications Acetaminophen (Tylenol -) 650 mg PO Q6H PRN PRN Reason: FEVER OR PAIN Albuterol/Ipratropium (Duoneb -) 1 amp NEB QIDR [facility] Last Admin: 05/08/17 11:00 Dose: 1 amp Amlodipine Besylate (Norvasc -) 10 mg PO DAILY [facility] Last Admin: 05/08/17 10:03 Dose: 10 mg Aspirin (Asa -) 81 mg PO DAILY [facility] Last Admin: 05/08/17 10:01 Dose: 81 mg Atorvastatin Calcium (Lipitor -) 80 mg PO HS [facility] Last Admin: 05/07/17 21:47 Dose: 80 mg Cholecalciferol (Vitamin D3 -) 1,000 unit PO DAILY [facility] Last Admin: 05/08/17 10:04 Dose: 1,000 unit Cholestyramine Resin (Questran Light Packet -) 4 gm PO BID PRN PRN Reason: cholestrol Clopidogrel Bisulfate (Plavix -) 75 mg PO DAILY [facility] Last Admin: 05/08/17 10:03 Dose: 75 mg Enoxaparin Sodium (Lovenox -) 40 mg SQ DAILY [facility] Last Admin: 05/08/17 10:06 Dose: 40 mg Guaifenesin (Mucinex -) 600 mg PO BID [facility] Last Admin: 05/08/17 10:03 Dose: 600 mg Cefepime HCl 1 gm/ Dextrose 100 mls @ 200 mls/hr IVPB Q8H-IV [facility] Last Admin: 05/08/17 10:04 Dose: 200 mls/hr Isosorbide Mononitrate (Imdur -) 60 mg PO DAILY [facility] Last Admin: 05/08/17 10:02 Dose: 60 mg Levetiracetam (Keppra -) 750 mg PO BID [facility] Last Admin: 05/08/17 10:02 Dose: 750 mg Loratadine (Claritin -) 10 mg PO DAILY [facility] Last Admin: 05/08/17 10:02 Dose: 10 mg Methylprednisolone Sodium Succinate (Solu-Medrol -) 40 mg IVPB BID [facility] Last Admin: 05/08/17 10:05 Dose: 40 mg Mometasone Furoate (Asmanex 220mcg -) 1 puff IH HS [facility] Last Admin: 05/07/17 21:50 Dose: 1 puff Montelukast Sodium (Singulair -) 10 mg PO HS [facility] Last Admin: 05/07/17 21:49 Dose: 10 mg Multi-Ingredient Ointment (Zinc Oxide) 1 applic TP TID [facility] Last Admin: 05/08/17 13:51 Dose: 1 applic Nitroglycerin (Nitrostat -) 0.4 mg SL Q5M PRN PRN Reason: CHEST PAIN Nystatin (Nystatin Oral Suspension -) 500,000 units PO Q6HPO [facility] Last Admin: 05/08/17 12:36 Dose: 500,000 units Pantoprazole Sodium (Protonix -) 40 mg PO DAILY [facility] Last Admin: 05/08/17 10:04 Dose: 40 mg Potassium Phos/Sodium Phos (Phos-Nak Packet -) 1 packet PO TID [facility] Last Admin: 05/08/17 13:52 Dose: 1 packet Tamsulosin HCl (Flomax -) 0.4 mg PO DAILY@0830 [facility] Last Admin: 05/08/17 08:32 Dose: 0.4 mg - Objective Vital Signs: Vital Signs Temperature 97.7 F 05/08/17 08:00 Pulse Rate 79 05/08/17 12:14 Respiratory Rate 18 05/08/17 08:00 Blood Pressure 124/43 05/08/17 08:00 O2 Sat by Pulse Oximetry (%) 90 L 05/08/17 12:14 Constitutional: Yes: No Distress, Calm Cardiovascular: Yes: Regular Rate and Rhythm Respiratory: Yes: Poor Air Entry, Rhonchi Gastrointestinal: Yes: Normal Bowel Sounds, Soft Musculoskeletal: Yes: Other Edema: LLE: Trace, RLE: Trace Neurological: Yes: Alert, Oriented Psychiatric: Yes: Alert Labs: CBC, BMP 05/08/17 08:15 05/08/17 08:15 INR, PTT INR 1.11 (0.82-1.09) 04/28/17 14:23 Assessment/Plan Problem List - Problems (1) Acute and chronic respiratory failure with hypoxia Code(s): J96.21 - ACUTE AND CHRONIC RESPIRATORY FAILURE WITH HYPOXIA (2) Pneumonia Code(s): J18.9 - PNEUMONIA, UNSPECIFIED ORGANISM Qualifiers: Pneumonia type: due to unspecified organism Laterality: bilateral Lung location: lower lobe of lung Qualified Code(s): J18.9 - Pneumonia, unspecified organism (3) COPD exacerbation Code(s): J44.1 - CHRONIC OBSTRUCTIVE PULMONARY DISEASE W (ACUTE) EXACERBATION (4) NSTEMI (non-ST elevated myocardial infarction) Code(s): I21.4 - NON-ST ELEVATION (NSTEMI) MYOCARDIAL INFARCTION (5) CAD (coronary artery disease) Code(s): I25.10 - ATHSCL HEART DISEASE OF [place] CORONARY ARTERY W/O ANG PCTRS Qualifiers: Coronary Disease-Associated Artery/Lesion type: [place] artery [place] vs. transplanted heart: [place] heart Associated angina: angina presence unspecified Qualified Code(s): I25.10 - Atherosclerotic heart disease of [place] coronary artery without angina pectoris (6) Sepsis Code(s): A41.9 - SEPSIS, UNSPECIFIED ORGANISM Qualifiers: Sepsis type: sepsis due to unspecified organism Qualified Code(s): A41.9 - Sepsis, unspecified organism (7) Lactic acidosis Code(s): E87.2 - ACIDOSIS plan continue abx will stop vanco by sat will deescalte quang rest as per primary
--- NOTE | 2017-05-08 14:43 | PN ---
Progress Note, Physician History of Present Illness: pulmonary alert,feeling better,less dyspneic,still congested - Current Medication List Current Medications: Active Medications Acetaminophen (Tylenol -) 650 mg PO Q6H PRN PRN Reason: FEVER OR PAIN Albuterol/Ipratropium (Duoneb -) 1 amp NEB QIDR [facility] Last Admin: 05/08/17 11:00 Dose: 1 amp Amlodipine Besylate (Norvasc -) 10 mg PO DAILY [facility] Last Admin: 05/08/17 10:03 Dose: 10 mg Aspirin (Asa -) 81 mg PO DAILY [facility] Last Admin: 05/08/17 10:01 Dose: 81 mg Atorvastatin Calcium (Lipitor -) 80 mg PO HS [facility] Last Admin: 05/07/17 21:47 Dose: 80 mg Cholecalciferol (Vitamin D3 -) 1,000 unit PO DAILY [facility] Last Admin: 05/08/17 10:04 Dose: 1,000 unit Cholestyramine Resin (Questran Light Packet -) 4 gm PO BID PRN PRN Reason: cholestrol Clopidogrel Bisulfate (Plavix -) 75 mg PO DAILY [facility] Last Admin: 05/08/17 10:03 Dose: 75 mg Enoxaparin Sodium (Lovenox -) 40 mg SQ DAILY [facility] Last Admin: 05/08/17 10:06 Dose: 40 mg Guaifenesin (Mucinex -) 600 mg PO BID [facility] Last Admin: 05/08/17 10:03 Dose: 600 mg Cefepime HCl 1 gm/ Dextrose 100 mls @ 200 mls/hr IVPB Q8H-IV [facility] Last Admin: 05/08/17 10:04 Dose: 200 mls/hr Isosorbide Mononitrate (Imdur -) 60 mg PO DAILY [facility] Last Admin: 05/08/17 10:02 Dose: 60 mg Levetiracetam (Keppra -) 750 mg PO BID [facility] Last Admin: 05/08/17 10:02 Dose: 750 mg Loratadine (Claritin -) 10 mg PO DAILY [facility] Last Admin: 05/08/17 10:02 Dose: 10 mg Methylprednisolone Sodium Succinate (Solu-Medrol -) 40 mg IVPB BID [facility] Last Admin: 05/08/17 10:05 Dose: 40 mg Mometasone Furoate (Asmanex 220mcg -) 1 puff IH HS [facility] Last Admin: 05/07/17 21:50 Dose: 1 puff Montelukast Sodium (Singulair -) 10 mg PO HS [facility] Last Admin: 05/07/17 21:49 Dose: 10 mg Multi-Ingredient Ointment (Zinc Oxide) 1 applic TP TID [facility] Last Admin: 05/08/17 13:51 Dose: 1 applic Nitroglycerin (Nitrostat -) 0.4 mg SL Q5M PRN PRN Reason: CHEST PAIN Nystatin (Nystatin Oral Suspension -) 500,000 units PO Q6HPO [facility] Last Admin: 05/08/17 12:36 Dose: 500,000 units Pantoprazole Sodium (Protonix -) 40 mg PO DAILY [facility] Last Admin: 05/08/17 10:04 Dose: 40 mg Potassium Phos/Sodium Phos (Phos-Nak Packet -) 1 packet PO TID [facility] Last Admin: 05/08/17 13:52 Dose: 1 packet Tamsulosin HCl (Flomax -) 0.4 mg PO DAILY@0830 [facility] Last Admin: 05/08/17 08:32 Dose: 0.4 mg - Objective Vital Signs: Vital Signs Temperature 98.1 F 05/08/17 14:17 Pulse Rate 89 05/08/17 14:17 Respiratory Rate 18 05/08/17 14:17 Blood Pressure 120/43 05/08/17 14:17 O2 Sat by Pulse Oximetry (%) 90 L 05/08/17 12:14 Constitutional: Yes: Well Nourished, Calm Eyes: Yes: WNL HENT: Yes: WNL Neck: Yes: WNL Cardiovascular: Yes: Regular Rate and Rhythm, S1, S2 Respiratory: Yes: Rhonchi (brenna rhonchi) Gastrointestinal: Yes: Normal Bowel Sounds, Soft Extremities: Yes: WNL Edema: No Labs: CBC, BMP 05/08/17 08:15 05/08/17 08:15 INR, PTT INR 1.11 (0.82-1.09) 04/28/17 14:23 Assessment/Plan A/P Acute on Chronic Hypoxic Respiratory Failure Pneumonia Sepsis Lactic Acidosis Acute COPD Exacerbation CAD Acute NSTEMI - antibiotics - medrol - inhaled bronchodilators standing and PRN - O2 to keep SpO2 >90% - BiPAP at night and PRN to assist in work of breathing - pt DNR/DNI - chest x-ray Problem List - Problems (1) Acute and chronic respiratory failure with hypoxia Code(s): J96.21 - ACUTE AND CHRONIC RESPIRATORY FAILURE WITH HYPOXIA (2) Pneumonia Code(s): J18.9 - PNEUMONIA, UNSPECIFIED ORGANISM Qualifiers: Pneumonia type: due to unspecified organism Laterality: bilateral Lung location: lower lobe of lung Qualified Code(s): J18.9 - Pneumonia, unspecified organism (3) COPD exacerbation Code(s): J44.1 - CHRONIC OBSTRUCTIVE PULMONARY DISEASE W (ACUTE) EXACERBATION (4) NSTEMI (non-ST elevated myocardial infarction) Code(s): I21.4 - NON-ST ELEVATION (NSTEMI) MYOCARDIAL INFARCTION (5) CAD (coronary artery disease) Code(s): I25.10 - ATHSCL HEART DISEASE OF [place] CORONARY ARTERY W/O ANG PCTRS Qualifiers: Coronary Disease-Associated Artery/Lesion type: [place] artery [place] vs. transplanted heart: [place] heart Associated angina: angina presence unspecified Qualified Code(s): I25.10 - Atherosclerotic heart disease of [place] coronary artery without angina pectoris (6) Sepsis Code(s): A41.9 - SEPSIS, UNSPECIFIED ORGANISM Qualifiers: Sepsis type: sepsis due to unspecified organism Qualified Code(s): A41.9 - Sepsis, unspecified organism (7) Lactic acidosis Code(s): E87.2 - ACIDOSIS
[2017-05-08] MEDS ORDERED: FLUCONAZOLE 100 MG/D5W 50 ML IVPB ONE (14:44)
[2017-05-08] MEDS: ATORVASTATIN CA 10 MG TABLET (FP) PO SCH (21:32)
[2017-05-08] MEDS: MONTELUKAST NA 10 MG TABLET PO SCH (21:32)
[2017-05-08] MEDS: MOMETASONE FUROATE 220 MCG/IH INHALER IH SCH (21:47)
[2017-05-09] MEDS: NYSTATIN 500,000 UNITS/5 ML SUSPENSION PO SCH ×4 (00:24→18:39)
[2017-05-09] MEDS ORDERED: CEFEPIME HCL 1 GM VIAL (RESTRICTED TO ID) ONE ×4 (01:18→21:49)
[2017-05-09] MEDS ORDERED: DEXTROSE 5%-WATER 100 ML IVPB ONE ×4 (01:20→21:49)
[2017-05-09] MEDS: CEFEPIME 1 GM in DEXTROSE 5%-WATER 100 ML IVPB SCH ×3 (01:28→18:39)
[2017-05-09] MEDS: NAPH,MB-DB/K PH,MBDB POWDER PACKET PO SCH ×3 (05:31→22:18)
[2017-05-09] MEDS: ZINC OXIDE 20% TOPICAL OINTMENT 30 GM TUBE TP SCH ×3 (05:31→22:19)
[2017-05-09] MEDS: ALBUTEROL SO4 2.5/IPRATROPIUM 0.5 INH SOL 3 ML VIAL.NEB. NEB SCH ×3 (05:39→18:04)
[2017-05-09 10:50] LABS: BASOPHIL 0.3 % (0-2.0); MCH 28.6 pg (25.7-33.7); MCHC 31.5 g/dl (32.0-35.9); MEAN CELL VOLUME 90.8 fl (80-96); MEAN PLT VOLUME 7.7 fl (7.5-11.1); NEUTROPHILS 95.5 % (42.8-82.8); PLATELET COUNT 140 K/MM3 (134-434); RDW 18.3 % (11.9-15.9); WHITE BLOOD COUNT 13.9 K/mm3 (4.0-10.0)
--- NOTE | 2017-05-09 10:59 | PN ---
Progress Note, Physician History of Present Illness: seen and examined today in nad. on bipap. opens eyes but does not answer questions clearly. - Current Medication List Current Medications: Active Medications Acetaminophen (Tylenol -) 650 mg PO Q6H PRN PRN Reason: FEVER OR PAIN Albuterol/Ipratropium (Duoneb -) 1 amp NEB QIDR [facility] Last Admin: 05/09/17 05:39 Dose: 1 amp Amlodipine Besylate (Norvasc -) 10 mg PO DAILY [facility] Last Admin: 05/08/17 10:03 Dose: 10 mg Aspirin (Asa -) 81 mg PO DAILY [facility] Last Admin: 05/08/17 10:01 Dose: 81 mg Atorvastatin Calcium (Lipitor -) 80 mg PO HS [facility] Last Admin: 05/08/17 21:32 Dose: 80 mg Cholecalciferol (Vitamin D3 -) 1,000 unit PO DAILY [facility] Last Admin: 05/08/17 10:04 Dose: 1,000 unit Cholestyramine Resin (Questran Light Packet -) 4 gm PO BID PRN PRN Reason: cholestrol Clopidogrel Bisulfate (Plavix -) 75 mg PO DAILY [facility] Last Admin: 05/08/17 10:03 Dose: 75 mg Enoxaparin Sodium (Lovenox -) 40 mg SQ DAILY [facility] Last Admin: 05/08/17 10:06 Dose: 40 mg Guaifenesin (Mucinex -) 600 mg PO BID [facility] Last Admin: 05/08/17 21:32 Dose: 600 mg Cefepime HCl 1 gm/ Dextrose 100 mls @ 200 mls/hr IVPB Q8H-IV [facility] Last Admin: 05/09/17 01:28 Dose: 200 mls/hr Isosorbide Mononitrate (Imdur -) 60 mg PO DAILY [facility] Last Admin: 05/08/17 10:02 Dose: 60 mg Levetiracetam (Keppra -) 750 mg PO BID [facility] Last Admin: 05/08/17 21:33 Dose: 750 mg Loratadine (Claritin -) 10 mg PO DAILY [facility] Last Admin: 05/08/17 10:02 Dose: 10 mg Methylprednisolone Sodium Succinate (Solu-Medrol -) 40 mg IVPB BID [facility] Last Admin: 05/08/17 21:34 Dose: 40 mg Mometasone Furoate (Asmanex 220mcg -) 1 puff IH HS [facility] Last Admin: 05/08/17 21:47 Dose: 1 puff Montelukast Sodium (Singulair -) 10 mg PO HS [facility] Last Admin: 05/08/17 21:32 Dose: 10 mg Multi-Ingredient Ointment (Zinc Oxide) 1 applic TP TID [facility] Last Admin: 05/09/17 05:31 Dose: 1 applic Nitroglycerin (Nitrostat -) 0.4 mg SL Q5M PRN PRN Reason: CHEST PAIN Nystatin (Nystatin Oral Suspension -) 500,000 units PO Q6HPO [facility] Last Admin: 05/09/17 05:31 Dose: 500,000 units Pantoprazole Sodium (Protonix -) 40 mg PO DAILY [facility] Last Admin: 05/08/17 10:04 Dose: 40 mg Potassium Phos/Sodium Phos (Phos-Nak Packet -) 1 packet PO TID [facility] Last Admin: 05/09/17 05:31 Dose: 1 packet Tamsulosin HCl (Flomax -) 0.4 mg PO DAILY@0830 [facility] Last Admin: 05/08/17 08:32 Dose: 0.4 mg - Objective Vital Signs: Vital Signs Temperature 97.9 F 05/09/17 06:57 Pulse Rate 72 05/09/17 06:57 Respiratory Rate 24 05/09/17 06:57 Blood Pressure 134/48 05/09/17 06:57 O2 Sat by Pulse Oximetry (%) 95 05/09/17 06:51 Constitutional: Yes: No Distress, Calm Eyes: Yes: Conjunctiva Clear HENT: Yes: Atraumatic, Normocephalic Neck: Yes: Supple Cardiovascular: Yes: Regular Rate and Rhythm, S1, S2. No: Bradycardia, Tachycardia, Pulse Irregular, Bruit, JVD, Gallop, Murmur, Rub, S3, S4, Varicosities Respiratory: Yes: Regular, Diminished, Rhonchi. No: Rales, Wheezes Gastrointestinal: Yes: Normal Bowel Sounds, Soft. No: Distention, Tenderness Edema: LLE: Trace, RLE: Trace Peripheral Pulses: Left Doralis Pedis: 2+, Right Dorsalis Pedis: 2+ Neurological: No: Alert, Oriented Psychiatric: No: Alert, Oriented Labs: CBC, BMP 05/09/17 10:30 INR, PTT INR 1.11 (0.82-1.09) 04/28/17 14:23 - ....Imaging Chest X-ray: Report Reviewed, Image Reviewed EKG: Report Reviewed, Image Reviewed Other: Report Reviewed, Image Reviewed Assessment/Plan IMP: Sepsis secondary to bilateral PNA NSTEMI Anemia SOB REC: SOB-primarily PNA/Sepsis, possible superimposed acute diastolic CHF -receiving ABx -stopped IV Lasix due to suspected developing intravascular depletion -bun/creat stable -will start Lasix 40mg po daily -suspect component of edema due to 3rd spacing from hypoalbuminemia, does not appear significantly volume overloaded or with sig pulm vasc congestion on exam or Cxr NSTEMI: enzymes trended down -plan for medical management given advanced age and multiple co-morbidities -cont asa, plavix, lipitor, imdur -bblocker was held due to copd -Repeat echo showed overall preserved LV funciton. -no additional planned inpatient cardiac work up at this time.
[2017-05-09] MEDS ORDERED: PT OWN MED DRAWER 7, Y5N ONE (11:01)
[2017-05-09] MEDS: ENOXAPARIN NA (PORCINE) 40 MG/0.4 ML DISP.SYRIN SQ SCH (11:05)
[2017-05-09] MEDS: ASPIRIN 81 MG CHEWABLE TABLETS PO SCH (11:05)
[2017-05-09] MEDS: CHOLECALCIFEROL (VITAMIN D3) 1,000 UNIT TABLET (FP) PO SCH (11:05)
[2017-05-09] MEDS: ISOSORBIDE MONONITRATE 60 MG TAB.SR.24H (FP) PO SCH (11:05)
[2017-05-09 11:06] LABS: ANION GAP 8 (8-16); CALCIUM 7.5 mg/dL (8.5-10.1); CO2 31 mmol/L (21-32); CREATININE 0.5 mg/dL (0.7-1.3); GLUCOSE,RANDOM 159 mg/dL (74-106); MAGNESIUM 2.9 mg/dL (1.8-2.4); PHOSPHOROUS 2.9 mg/dL (2.5-4.9)
[2017-05-09] MEDS: amLODIPine BESYLATE 10 MG TABLET (FP) PO SCH (11:06)
[2017-05-09] MEDS: guaiFENesin 600 MG TABLET.ER (FP) PO SCH ×2 (11:06→22:18)
[2017-05-09] MEDS: levETIRAcetam 250 MG TABLET (FP) PO SCH ×2 (11:06→22:17)
[2017-05-09] MEDS: CLOPIDOGREL BISULFATE 75 MG TABLET (FP) PO SCH (11:06)
[2017-05-09] MEDS: TAMSULOSIN HCL 0.4 MG CAP.ER.24H (FP) PO SCH (11:06)
[2017-05-09] MEDS: LORATADINE 10 MG TABLET PO SCH (11:06)
[2017-05-09] MEDS: PANTOPRAZOLE 40 MG TABLET (FP) PO SCH (11:06)
[2017-05-09] MEDS: methylPREDNISolone NA SUCC 40 MG/1 ML VIAL IVPB SCH ×2 (11:07→22:19)
[2017-05-09] MEDS: FUROSEMIDE 40 MG TABLET (FP) PO SCH (11:26)
--- NOTE | 2017-05-09 12:27 | PN ---
Progress Note (short form) - Note Progress Note: PULMONARY AWAKE/ VSS/AFEBRILE Constitutional: Yes: Well Nourished, Calm Eyes: Yes: WNL HENT: Yes: WNL Neck: Yes: WNL Cardiovascular: Yes: Regular Rate and Rhythm, S1, S2 Respiratory: Yes: Rhonchi (brenna rhonchi) Gastrointestinal: Yes: Normal Bowel Sounds, Soft Extremities: Yes: WNL Edema: No LABS/MEDS/NOTES/IMAGING REVIEWED A/P Acute on Chronic Hypoxic Respiratory Failure Pneumonia Sepsis Lactic Acidosis Acute COPD Exacerbation CAD Acute NSTEMI - antibiotics - medrol - inhaled bronchodilators standing and PRN - O2 to keep SpO2 >90% - BiPAP at night and PRN to assist in work of breathing - pt DNR/DNI Elizabeth PELLETIER MD
--- NOTE | 2017-05-09 12:43 | PN ---
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 Reviewed with staff need to thicken swish and swallow to honey thick. Arms edematous but improving. Sounds less congested. Selected Entries 05/08/17 05/08/17 05/08/17 06:00 08:00 09:49 Breakfast 75% Lunch Temperature 97.8 F 97.7 F 05/08/17 05/08/17 05/08/17 14:17 17:05 22:00 Breakfast Lunch 75% Temperature 98.1 F 98.2 F 98.5 F 05/09/17 06:57 Breakfast Lunch Temperature 97.9 F Laboratory Tests 05/07/17 05/08/17 05/09/17 06:00 08:15 10:30 WBC 11.2 H 15.2 H D 13.9 H Continue to hold PO liquids for now, with careful monitoring for dehydration. If pulmonary improvement continues, trial of honey thick liquid ON TSP only, starting tomorrow. If congestion returns, temporary PEG for hydration may need to be considered.
--- NOTE | 2017-05-09 12:53 | PN ---
Progress Note, Physician History of Present Illness: patient says he is more tired today still congested - Current Medication List Current Medications: Active Medications Acetaminophen (Tylenol -) 650 mg PO Q6H PRN PRN Reason: FEVER OR PAIN Albuterol/Ipratropium (Duoneb -) 1 amp NEB QIDR [facility] Last Admin: 05/09/17 11:22 Dose: 1 amp Amlodipine Besylate (Norvasc -) 10 mg PO DAILY [facility] Last Admin: 05/09/17 11:06 Dose: 10 mg Aspirin (Asa -) 81 mg PO DAILY [facility] Last Admin: 05/09/17 11:05 Dose: 81 mg Atorvastatin Calcium (Lipitor -) 80 mg PO HS [facility] Last Admin: 05/08/17 21:32 Dose: 80 mg Cholecalciferol (Vitamin D3 -) 1,000 unit PO DAILY [facility] Last Admin: 05/09/17 11:05 Dose: 1,000 unit Cholestyramine Resin (Questran Light Packet -) 4 gm PO BID PRN PRN Reason: cholestrol Clopidogrel Bisulfate (Plavix -) 75 mg PO DAILY [facility] Last Admin: 05/09/17 11:06 Dose: 75 mg Enoxaparin Sodium (Lovenox -) 40 mg SQ DAILY [facility] Last Admin: 05/09/17 11:05 Dose: 40 mg Furosemide (Lasix -) 40 mg PO DAILY [facility] Last Admin: 05/09/17 11:26 Dose: 40 mg Guaifenesin (Mucinex -) 600 mg PO BID [facility] Last Admin: 05/09/17 11:06 Dose: 600 mg Cefepime HCl 1 gm/ Dextrose 100 mls @ 200 mls/hr IVPB Q8H-IV [facility] Last Admin: 05/09/17 11:05 Dose: 200 mls/hr Isosorbide Mononitrate (Imdur -) 60 mg PO DAILY [facility] Last Admin: 05/09/17 11:05 Dose: 60 mg Levetiracetam (Keppra -) 750 mg PO BID [facility] Last Admin: 05/09/17 11:06 Dose: 750 mg Loratadine (Claritin -) 10 mg PO DAILY [facility] Last Admin: 05/09/17 11:06 Dose: 10 mg Methylprednisolone Sodium Succinate (Solu-Medrol -) 40 mg IVPB BID [facility] Last Admin: 05/09/17 11:07 Dose: 40 mg Mometasone Furoate (Asmanex 220mcg -) 1 puff IH HS [facility] Last Admin: 05/08/17 21:47 Dose: 1 puff Montelukast Sodium (Singulair -) 10 mg PO HS [facility] Last Admin: 05/08/17 21:32 Dose: 10 mg Multi-Ingredient Ointment (Zinc Oxide) 1 applic TP TID [facility] Last Admin: 05/09/17 05:31 Dose: 1 applic Nitroglycerin (Nitrostat -) 0.4 mg SL Q5M PRN PRN Reason: CHEST PAIN Nystatin (Nystatin Oral Suspension -) 500,000 units PO Q6HPO [facility] Last Admin: 05/09/17 11:26 Dose: 500,000 units Pantoprazole Sodium (Protonix -) 40 mg PO DAILY [facility] Last Admin: 05/09/17 11:06 Dose: 40 mg Potassium Phos/Sodium Phos (Phos-Nak Packet -) 1 packet PO TID [facility] Last Admin: 05/09/17 05:31 Dose: 1 packet Tamsulosin HCl (Flomax -) 0.4 mg PO DAILY@0830 [facility] Last Admin: 05/09/17 11:06 Dose: 0.4 mg - Objective Vital Signs: Vital Signs Temperature 97.9 F 05/09/17 06:57 Pulse Rate 69 05/09/17 11:21 Respiratory Rate 24 05/09/17 06:57 Blood Pressure 134/48 05/09/17 06:57 O2 Sat by Pulse Oximetry (%) 99 05/09/17 11:21 Constitutional: Yes: Calm, Other Neck: Yes: Supple Cardiovascular: Yes: Regular Rate and Rhythm Respiratory: Yes: On BiPap, On Nasal O2, Poor Air Entry, Rales Gastrointestinal: Yes: Normal Bowel Sounds, Soft Musculoskeletal: Yes: Other Edema: LLE: Trace, RLE: Trace Neurological: Yes: Alert Psychiatric: Yes: Alert Labs: CBC, BMP 05/09/17 10:30 05/09/17 10:30 INR, PTT INR 1.11 (0.82-1.09) 04/28/17 14:23 Assessment/Plan Problem List - Problems (1) Acute and chronic respiratory failure with hypoxia Code(s): J96.21 - ACUTE AND CHRONIC RESPIRATORY FAILURE WITH HYPOXIA (2) Pneumonia Code(s): J18.9 - PNEUMONIA, UNSPECIFIED ORGANISM Qualifiers: Pneumonia type: due to unspecified organism Laterality: bilateral Lung location: lower lobe of lung Qualified Code(s): J18.9 - Pneumonia, unspecified organism (3) COPD exacerbation Code(s): J44.1 - CHRONIC OBSTRUCTIVE PULMONARY DISEASE W (ACUTE) EXACERBATION (4) NSTEMI (non-ST elevated myocardial infarction) Code(s): I21.4 - NON-ST ELEVATION (NSTEMI) MYOCARDIAL INFARCTION (5) CAD (coronary artery disease) Code(s): I25.10 - ATHSCL HEART DISEASE OF [place] CORONARY ARTERY W/O ANG PCTRS Qualifiers: Coronary Disease-Associated Artery/Lesion type: [place] artery [place] vs. transplanted heart: [place] heart Associated angina: angina presence unspecified Qualified Code(s): I25.10 - Atherosclerotic heart disease of [place] coronary artery without angina pectoris (6) Sepsis Code(s): A41.9 - SEPSIS, UNSPECIFIED ORGANISM Qualifiers: Sepsis type: sepsis due to unspecified organism Qualified Code(s): A41.9 - Sepsis, unspecified organism (7) Lactic acidosis Code(s): E87.2 - ACIDOSIS plan continue abx i think we should try some diuretic on him if feasible continue resp support rest as per primary team
--- NOTE | 2017-05-09 15:12 | PN ---
Progress Note, Physician Chief Complaint: Mr Oropeza says he doesnt know how he feels today. When asked if short of breath, hurting, or having nausea he says "I don't know" - Current Medication List Current Medications: Active Medications Acetaminophen (Tylenol -) 650 mg PO Q6H PRN PRN Reason: FEVER OR PAIN Albuterol/Ipratropium (Duoneb -) [address] [facility] Last Admin: 05/09/17 11:22 Dose: 1 amp Amlodipine Besylate (Norvasc -) [address] [facility] Last Admin: 05/09/17 11:06 Dose: 10 mg Aspirin (Asa -) [address] [facility] Last Admin: 05/09/17 11:05 Dose: 81 mg Atorvastatin Calcium (Lipitor -) [address] [facility] Last Admin: 05/08/17 21:32 Dose: 80 mg Cholecalciferol (Vitamin D3 -) 1,[address] [facility] Last Admin: 05/09/17 11:05 Dose: 1,000 unit Cholestyramine Resin (Questran Light Packet -) 4 gm PO BID PRN PRN Reason: cholestrol Clopidogrel Bisulfate (Plavix -) [address] [facility] Last Admin: 05/09/17 11:06 Dose: 75 mg Enoxaparin Sodium (Lovenox -) [address] [facility] Last Admin: 05/09/17 11:05 Dose: 40 mg Furosemide (Lasix -) [address] [facility] Last Admin: 05/09/17 11:26 Dose: 40 mg Guaifenesin (Mucinex -) [address] [facility] Last Admin: 05/09/17 11:06 Dose: 600 mg Cefepime HCl 1 gm/ Dextrose 100 mls @ 200 mls/hr IVPB Q8H-IV [facility] Last Admin: 05/09/17 11:05 Dose: 200 mls/hr Isosorbide Mononitrate (Imdur -) [address] [facility] Last Admin: 05/09/17 11:05 Dose: 60 mg Levetiracetam (Keppra -) [address] [facility] Last Admin: 05/09/17 11:06 Dose: 750 mg Loratadine (Claritin -) [address] [facility] Last Admin: 05/09/17 11:06 Dose: 10 mg Methylprednisolone Sodium Succinate (Solu-Medrol -) [address] [facility] Last Admin: 05/09/17 11:07 Dose: 40 mg Mometasone Furoate (Asmanex 220mcg -) 1 puff [facility] Last Admin: 05/08/17 21:47 Dose: 1 puff Montelukast Sodium (Singulair -) [address] [facility] Last Admin: 05/08/17 21:32 Dose: 10 mg Multi-Ingredient Ointment (Zinc Oxide) [address] [facility] Last Admin: 05/09/17 05:31 Dose: 1 applic Nitroglycerin (Nitrostat -) 0.4 mg SL Q5M PRN PRN Reason: CHEST PAIN Nystatin (Nystatin Oral Suspension -) 500,[address] [facility] Last Admin: 05/09/17 11:26 Dose: 500,000 units Pantoprazole Sodium (Protonix -) [address] [facility] Last Admin: 05/09/17 11:06 Dose: 40 mg Potassium Phos/Sodium Phos (Phos-Nak Packet -) [address] [facility] Last Admin: 05/09/17 05:31 Dose: 1 packet Tamsulosin HCl (Flomax -) 0.4 mg PO DAILY@0830 [facility] Last Admin: 05/09/17 11:06 Dose: 0.4 mg - Objective Vital Signs: Vital Signs Temperature 36.6 C 05/09/17 06:57 Pulse Rate 69 05/09/17 11:21 Respiratory Rate 24 05/09/17 06:57 Blood Pressure 134/48 05/09/17 06:57 O2 Sat by Pulse Oximetry (%) 99 05/09/17 11:21 Constitutional: Yes: Well Nourished, No Distress, Calm Cardiovascular: Yes: Regular Rate and Rhythm. No: Gallop, Murmur, Rub Respiratory: Yes: Regular, On Nasal O2, Rhonchi. No: CTA Bilaterally, Rales, Wheezes Gastrointestinal: Yes: Normal Bowel Sounds, Soft. No: Distention, Tenderness Extremities: Yes: WNL Edema: Yes Edema: LUE: 1+, RUE: 1+, LLE: 1+, RLE: 1+ Labs: CBC, BMP 05/09/17 10:30 05/09/17 10:30 INR, PTT INR 1.11 (0.82-1.09) 04/28/17 14:23 Problem List - Problems (1) NSTEMI (non-ST elevated myocardial infarction) Code(s): I21.4 - NON-ST ELEVATION (NSTEMI) MYOCARDIAL INFARCTION (2) Acute and chronic respiratory failure with hypoxia Code(s): J96.21 - ACUTE AND CHRONIC RESPIRATORY FAILURE WITH HYPOXIA (3) COPD exacerbation Code(s): J44.1 - CHRONIC OBSTRUCTIVE PULMONARY DISEASE W (ACUTE) EXACERBATION (4) Sepsis Code(s): A41.9 - SEPSIS, UNSPECIFIED ORGANISM Qualifiers: Sepsis type: sepsis due to unspecified organism Qualified Code(s): A41.9 - Sepsis, unspecified organism (5) CAD (coronary artery disease) Code(s): I25.10 - ATHSCL HEART DISEASE OF [place] CORONARY ARTERY W/O ANG PCTRS Qualifiers: Coronary Disease-Associated Artery/Lesion type: [place] artery [place] vs. transplanted heart: [place] heart Associated angina: angina presence unspecified Qualified Code(s): I25.10 - Atherosclerotic heart disease of [place] coronary artery without angina pectoris (6) CHF (congestive heart failure) Code(s): I50.9 - HEART FAILURE, UNSPECIFIED Qualifiers: Congestive heart failure type: diastolic Congestive heart failure chronicity: acute on chronic Qualified Code(s): I50.33 - Acute on chronic diastolic (congestive) heart failure (7) CVA (cerebral vascular accident) Code(s): I63.9 - CEREBRAL INFARCTION, UNSPECIFIED Qualifiers: CVA mechanism: unspecified Qualified Code(s): I63.9 - Cerebral infarction, unspecified (8) UTI (urinary tract infection) Code(s): N39.0 - URINARY TRACT INFECTION, SITE NOT SPECIFIED Assessment/Plan (1) NSTEMI (non-ST elevated myocardial infarction) Assessment/Plan: -appreciate cardiology assistance -medical management Code(s): I21.4 - NON-ST ELEVATION (NSTEMI) MYOCARDIAL INFARCTION (2) Acute and chronic respiratory failure with hypoxia Assessment/Plan: -continues to improve -pulmonary following -continue solumedrol, taper per pulmonary -continue bronchodilators Code(s): J96.21 - ACUTE AND CHRONIC RESPIRATORY FAILURE WITH HYPOXIA (3) COPD exacerbation Assessment/Plan: -as above Code(s): J44.1 - CHRONIC OBSTRUCTIVE PULMONARY DISEASE W (ACUTE) EXACERBATION (4) Sepsis Assessment/Plan -continue cefepime and vancomycin -ID following -duration per Dr Farley Code(s): A41.9 - SEPSIS, UNSPECIFIED ORGANISM Qualifiers: Sepsis type: sepsis due to unspecified organism Qualified Code(s): A41.9 - Sepsis, unspecified organism (5) CAD (coronary artery disease) Assessment/Plan: -continue medical management Code(s): I25.10 - ATHSCL HEART DISEASE OF [place] CORONARY ARTERY W/O ANG PCTRS Qualifiers: Coronary Disease-Associated Artery/Lesion type: [place] artery [place] vs. transplanted heart: [place] heart Associated angina: angina presence unspecified Qualified Code(s): I25.10 - Atherosclerotic heart disease of [place] coronary artery without angina pectoris (6) CHF (congestive heart failure) Assessment/Plan: -case d/w cardiology -started oral lasix Code(s): I50.9 - HEART FAILURE, UNSPECIFIED Qualifiers: Congestive heart failure type: diastolic Congestive heart failure chronicity: acute on chronic Qualified Code(s): (7) CVA (cerebral vascular accident) Assessment/Plan: -continue plavix Code(s): I63.9 - CEREBRAL INFARCTION, UNSPECIFIED Qualifiers: CVA mechanism: unspecified Qualified Code(s): I63.9 - Cerebral infarction, unspecified (8) UTI (urinary tract infection) Assessment/Plan: -urine cultures negative Code(s): N39.0 - URINARY TRACT INFECTION, SITE NOT SPECIFIED (9) Hypermagnesemia -stopped maalox (10) Thrush -s/p diflucan -resolved
[2017-05-09] MEDS: ATORVASTATIN CA 10 MG TABLET (FP) PO SCH (22:18)
[2017-05-09] MEDS: MOMETASONE FUROATE 220 MCG/IH INHALER IH SCH (22:19)
[2017-05-09] MEDS: MONTELUKAST NA 10 MG TABLET PO SCH (22:19)
[2017-05-10] MEDS: ALBUTEROL SO4 2.5/IPRATROPIUM 0.5 INH SOL 3 ML VIAL.NEB. NEB SCH ×4 (00:12→17:18)
[2017-05-10] MEDS: CEFEPIME 1 GM in DEXTROSE 5%-WATER 100 ML IVPB SCH ×3 (02:00→17:14)
[2017-05-10] MEDS: ZINC OXIDE 20% TOPICAL OINTMENT 30 GM TUBE TP SCH ×3 (06:47→23:19)
[2017-05-10] MEDS: NYSTATIN 500,000 UNITS/5 ML SUSPENSION PO SCH ×4 (07:44→17:14)
[2017-05-10] MEDS: NAPH,MB-DB/K PH,MBDB POWDER PACKET PO SCH ×3 (07:44→23:20)
[2017-05-10 07:58] LABS: MCH 28.7 pg (25.7-33.7); MCHC 31.9 g/dl (32.0-35.9); MEAN CELL VOLUME 90.2 fl (80-96); MEAN PLT VOLUME 7.9 fl (7.5-11.1); PLATELET COUNT 169 K/MM3 (134-434); RDW 18.2 % (11.9-15.9); WHITE BLOOD COUNT 12.8 K/mm3 (4.0-10.0)
--- NOTE | 2017-05-10 08:28 | PN ---
Progress Note (short form) - Note Progress Note: Patient seen and examined. Chart reviewed. Currently supine in bed, lethargic but responsive. No apparent distress Bi-PAP in place. Labs radiologic studies teamcenter consultant and daily progress notes reviewed. Selected Entries 05/10/17 06:00 Temperature 97.9 F Pulse Rate 67 Respiratory 20 Rate Blood Pressure 146/63 Weight 189 lb 3 oz Laboratory Tests 05/09/17 05/09/17 10:30 10:30 WBC 13.9 H Hgb 8.5 L Hct 27.1 L Plt Count 140 Sodium 139 Potassium 3.9 Chloride 100 Carbon Dioxide 31 BUN 17 Creatinine 0.5 L Random Glucose 159 H Calcium 7.5 L Phosphorus 2.9 D Magnesium 2.9 H Today's CBC and CMP pending Chest Bi-PAP in place Scattered rhonchi noted No wheeze Cor RRR No new murmur Abd Soft No mass or tenderness Ext Edema of upper extremities and mild pedal edema Sal catheter in place with hematuria Neuro No new focal deficit noted Assessment and Plan NSTEMI Continue current Rx ASHD with reported CHF as per previous notes. Edema may be related in part to hypoalbuminemia Respiratory insufficiency Hypoxemia with need for Bi-PAP Acute exacerbation of COPD H/O CVA UTI F/C with hematuria Hypomagnesemia Recheck Pneumonitis Recent CXR noted Possibly related to aspiration/dysphagia Jaymie Ha note appreciated Dysphagia/aspiration As above DNR/DNI status "Sepsis" syndrome with elevated lactic acid level by history Hypoalbuminemia As noted above Corrected calcium within normal limits IGT On steroids Monitor glucose Anemia 8.5/27.1 Elevated total bilirubin Recheck and fractionate ?Gilbert's ?hemolysis Thrush Monitor Continue current Rx as outlined
[2017-05-10 08:38] LABS: ANION GAP 7 (8-16); CALCIUM 7.4 mg/dL (8.5-10.1); CO2 33 mmol/L (21-32); CREATININE 0.5 mg/dL (0.7-1.3); GLUCOSE,RANDOM 189 mg/dL (74-106); MAGNESIUM 2.7 mg/dL (1.8-2.4); PHOSPHOROUS 2.8 mg/dL (2.5-4.9)
[2017-05-10] MEDS: TAMSULOSIN HCL 0.4 MG CAP.ER.24H (FP) PO SCH (08:50)
--- NOTE | 2017-05-10 09:02 | PN ---
Progress Note, Physician - Current Medication List Current Medications: Active Medications Acetaminophen (Tylenol -) 650 mg PO Q6H PRN PRN Reason: FEVER OR PAIN Albuterol/Ipratropium (Duoneb -) 1 amp NEB QIDR [facility] Last Admin: 05/10/17 06:30 Dose: 1 amp Amlodipine Besylate (Norvasc -) 10 mg PO DAILY [facility] Last Admin: 05/09/17 11:06 Dose: 10 mg Aspirin (Asa -) 81 mg PO DAILY [facility] Last Admin: 05/09/17 11:05 Dose: 81 mg Atorvastatin Calcium (Lipitor -) 80 mg PO HS [facility] Last Admin: 05/09/17 22:18 Dose: 80 mg Cholecalciferol (Vitamin D3 -) 1,000 unit PO DAILY [facility] Last Admin: 05/09/17 11:05 Dose: 1,000 unit Cholestyramine Resin (Questran Light Packet -) 4 gm PO BID PRN PRN Reason: cholestrol Clopidogrel Bisulfate (Plavix -) 75 mg PO DAILY [facility] Last Admin: 05/09/17 11:06 Dose: 75 mg Enoxaparin Sodium (Lovenox -) 40 mg SQ DAILY [facility] Last Admin: 05/09/17 11:05 Dose: 40 mg Furosemide (Lasix -) 40 mg PO DAILY [facility] Last Admin: 05/09/17 11:26 Dose: 40 mg Guaifenesin (Mucinex -) 600 mg PO BID [facility] Last Admin: 05/09/17 22:18 Dose: 600 mg Cefepime HCl 1 gm/ Dextrose 100 mls @ 200 mls/hr IVPB Q8H-IV [facility] Last Admin: 05/10/17 02:00 Dose: 200 mls/hr Isosorbide Mononitrate (Imdur -) 60 mg PO DAILY [facility] Last Admin: 05/09/17 11:05 Dose: 60 mg Levetiracetam (Keppra -) 750 mg PO BID [facility] Last Admin: 05/09/17 22:17 Dose: 750 mg Loratadine (Claritin -) 10 mg PO DAILY [facility] Last Admin: 05/09/17 11:06 Dose: 10 mg Methylprednisolone Sodium Succinate (Solu-Medrol -) 40 mg IVPB BID [facility] Last Admin: 05/09/17 22:19 Dose: 40 mg Mometasone Furoate (Asmanex 220mcg -) 1 puff IH HS [facility] Last Admin: 05/09/17 22:19 Dose: 1 puff Montelukast Sodium (Singulair -) 10 mg PO HS [facility] Last Admin: 05/09/17 22:19 Dose: 10 mg Multi-Ingredient Ointment (Zinc Oxide) 1 applic TP TID [facility] Last Admin: 05/10/17 06:47 Dose: 1 applic Nitroglycerin (Nitrostat -) 0.4 mg SL Q5M PRN PRN Reason: CHEST PAIN Nystatin (Nystatin Oral Suspension -) 500,000 units PO Q6HPO [facility] Last Admin: 05/10/17 07:44 Dose: Not Given Pantoprazole Sodium (Protonix -) 40 mg PO DAILY [facility] Last Admin: 05/09/17 11:06 Dose: 40 mg Potassium Phos/Sodium Phos (Phos-Nak Packet -) 1 packet PO TID [facility] Last Admin: 05/10/17 07:44 Dose: Not Given Tamsulosin HCl (Flomax -) 0.4 mg PO DAILY@0830 [facility] Last Admin: 05/10/17 08:50 Dose: 0.4 mg - Objective Vital Signs: Vital Signs Temperature 97.9 F 05/10/17 06:00 Pulse Rate 67 05/10/17 06:00 Respiratory Rate 20 05/10/17 06:00 Blood Pressure 146/63 05/10/17 06:00 O2 Sat by Pulse Oximetry (%) 98 05/09/17 22:48 Eyes: Yes: WNL, Conjunctiva Clear, EOM Intact HENT: Yes: WNL, Atraumatic, Normocephalic Neck: Yes: WNL, Supple, Trachea Midline Cardiovascular: Yes: WNL, Regular Rate and Rhythm Respiratory: Yes: WNL, Regular, CTA Bilaterally Gastrointestinal: Yes: WNL, Normal Bowel Sounds Genitourinary: Yes: WNL Musculoskeletal: Yes: WNL Extremities: Yes: WNL Edema: Yes Integumentary: Yes: WNL Neurological: Yes: WNL, Alert, Oriented ...Motor Strength: WNL Psychiatric: Yes: WNL Labs: CBC, BMP 05/10/17 06:30 05/10/17 06:30 INR, PTT INR 1.11 (0.82-1.09) 04/28/17 14:23 Assessment/Plan IMP: Sepsis secondary to bilateral PNA NSTEMI Anemia SOB REC: SOB-primarily PNA/Sepsis, possible superimposed acute diastolic CHF -receiving ABx -stopped IV Lasix due to suspected developing intravascular depletion -bun/creat stable -will start Lasix 40mg po daily -suspect component of edema due to 3rd spacing from hypoalbuminemia, does not appear significantly volume overloaded or with sig pulm vasc congestion on exam or Cxr NSTEMI: enzymes trended down -plan for medical management given advanced age and multiple co-morbidities -cont asa, plavix, lipitor, imdur -bblocker was held due to copd -Repeat echo showed overall preserved LV funciton. -no additional planned inpatient cardiac work up at this time.
[2017-05-10] MEDS ORDERED: DEXTROSE 5%-WATER 100 ML IVPB ONE ×3 (10:03→21:23)
[2017-05-10] MEDS ORDERED: CEFEPIME HCL 1 GM VIAL (RESTRICTED TO ID) ONE ×3 (10:03→21:23)
[2017-05-10] MEDS: ISOSORBIDE MONONITRATE 60 MG TAB.SR.24H (FP) PO SCH (10:11)
[2017-05-10] MEDS: levETIRAcetam 250 MG TABLET (FP) PO SCH ×2 (10:11→23:21)
[2017-05-10] MEDS: guaiFENesin 600 MG TABLET.ER (FP) PO SCH ×2 (10:11→23:20)
[2017-05-10] MEDS: CHOLECALCIFEROL (VITAMIN D3) 1,000 UNIT TABLET (FP) PO SCH (10:11)
[2017-05-10] MEDS: LORATADINE 10 MG TABLET PO SCH (10:11)
[2017-05-10] MEDS: ENOXAPARIN NA (PORCINE) 40 MG/0.4 ML DISP.SYRIN SQ SCH (10:11)
[2017-05-10] MEDS: amLODIPine BESYLATE 10 MG TABLET (FP) PO SCH (10:11)
[2017-05-10] MEDS: methylPREDNISolone NA SUCC 40 MG/1 ML VIAL IVPB SCH ×2 (10:11→23:19)
[2017-05-10] MEDS: FUROSEMIDE 40 MG TABLET (FP) PO SCH (10:12)
[2017-05-10] MEDS: PANTOPRAZOLE 40 MG TABLET (FP) PO SCH (10:12)
[2017-05-10] MEDS: CLOPIDOGREL BISULFATE 75 MG TABLET (FP) PO SCH (10:12)
[2017-05-10] MEDS: ASPIRIN 81 MG CHEWABLE TABLETS PO SCH (10:12)
[2017-05-10 11:26] LABS: PLATELET COMMENT2 NO CLOTTING DETECTED; PLATELET ESTIMATE ADEQUATE (NORMAL); TOTAL CELLS COUNTED 100
[2017-05-10 11:27] LABS: METAMYELOCYTE 1 % (0-2)
--- NOTE | 2017-05-10 12:28 | PN ---
Progress Note, Physician History of Present Illness: patient stable on bipap - Current Medication List Current Medications: Active Medications Acetaminophen (Tylenol -) 650 mg PO Q6H PRN PRN Reason: FEVER OR PAIN Albuterol/Ipratropium (Duoneb -) 1 amp NEB QIDR [facility] Last Admin: 05/10/17 11:47 Dose: 1 amp Amlodipine Besylate (Norvasc -) 10 mg PO DAILY [facility] Last Admin: 05/10/17 10:11 Dose: 10 mg Aspirin (Asa -) 81 mg PO DAILY [facility] Last Admin: 05/10/17 10:12 Dose: 81 mg Atorvastatin Calcium (Lipitor -) 80 mg PO HS [facility] Last Admin: 05/09/17 22:18 Dose: 80 mg Cholecalciferol (Vitamin D3 -) 1,000 unit PO DAILY [facility] Last Admin: 05/10/17 10:11 Dose: 1,000 unit Cholestyramine Resin (Questran Light Packet -) 4 gm PO BID PRN PRN Reason: cholestrol Clopidogrel Bisulfate (Plavix -) 75 mg PO DAILY [facility] Last Admin: 05/10/17 10:12 Dose: 75 mg Enoxaparin Sodium (Lovenox -) 40 mg SQ DAILY [facility] Last Admin: 05/10/17 10:11 Dose: 40 mg Furosemide (Lasix -) 40 mg PO DAILY [facility] Last Admin: 05/10/17 10:12 Dose: 40 mg Guaifenesin (Mucinex -) 600 mg PO BID [facility] Last Admin: 05/10/17 10:11 Dose: 600 mg Cefepime HCl 1 gm/ Dextrose 100 mls @ 200 mls/hr IVPB Q8H-IV [facility] Last Admin: 05/10/17 10:12 Dose: 200 mls/hr Isosorbide Mononitrate (Imdur -) 60 mg PO DAILY [facility] Last Admin: 05/10/17 10:11 Dose: 60 mg Levetiracetam (Keppra -) 750 mg PO BID [facility] Last Admin: 05/10/17 10:11 Dose: 750 mg Loratadine (Claritin -) 10 mg PO DAILY [facility] Last Admin: 05/10/17 10:11 Dose: 10 mg Methylprednisolone Sodium Succinate (Solu-Medrol -) 40 mg IVPB BID [facility] Last Admin: 05/10/17 10:11 Dose: 40 mg Mometasone Furoate (Asmanex 220mcg -) 1 puff IH [facility] Last Admin: 05/09/17 22:19 Dose: 1 puff Montelukast Sodium (Singulair -) 10 mg PO HS [facility] Last Admin: 05/09/17 22:19 Dose: 10 mg Multi-Ingredient Ointment (Zinc Oxide) 1 applic TP TID [facility] Last Admin: 05/10/17 06:47 Dose: 1 applic Nitroglycerin (Nitrostat -) 0.4 mg SL Q5M PRN PRN Reason: CHEST PAIN Nystatin (Nystatin Oral Suspension -) 500,000 units PO Q6HPO [facility] Last Admin: 05/10/17 07:44 Dose: Not Given Pantoprazole Sodium (Protonix -) 40 mg PO DAILY [facility] Last Admin: 05/10/17 10:12 Dose: 40 mg Potassium Phos/Sodium Phos (Phos-Nak Packet -) 1 packet PO TID [facility] Last Admin: 05/10/17 07:44 Dose: Not Given Tamsulosin HCl (Flomax -) 0.4 mg PO DAILY@0830 [facility] Last Admin: 05/10/17 08:50 Dose: 0.4 mg - Objective Vital Signs: Vital Signs Temperature 97.8 F 05/10/17 10:00 Pulse Rate 70 05/10/17 11:45 Respiratory Rate 20 05/10/17 10:00 Blood Pressure 131/88 05/10/17 10:00 O2 Sat by Pulse Oximetry (%) 91 L 05/10/17 11:45 Constitutional: Yes: No Distress, Calm Cardiovascular: Yes: Regular Rate and Rhythm Respiratory: Yes: On BiPap, Rhonchi Gastrointestinal: Yes: Normal Bowel Sounds, Soft Musculoskeletal: Yes: Other Extremities: Yes: Other Neurological: Yes: Alert, Other Psychiatric: Yes: Alert Labs: CBC, BMP 05/10/17 06:30 05/10/17 06:30 INR, PTT INR 1.11 (0.82-1.09) 04/28/17 14:23 Assessment/Plan Problem List - Problems (1) Acute and chronic respiratory failure with hypoxia Code(s): J96.21 - ACUTE AND CHRONIC RESPIRATORY FAILURE WITH HYPOXIA (2) Pneumonia Code(s): J18.9 - PNEUMONIA, UNSPECIFIED ORGANISM Qualifiers: Pneumonia type: due to unspecified organism Laterality: bilateral Lung location: lower lobe of lung Qualified Code(s): J18.9 - Pneumonia, unspecified organism (3) COPD exacerbation Code(s): J44.1 - CHRONIC OBSTRUCTIVE PULMONARY DISEASE W (ACUTE) EXACERBATION (4) NSTEMI (non-ST elevated myocardial infarction) Code(s): I21.4 - NON-ST ELEVATION (NSTEMI) MYOCARDIAL INFARCTION (5) CAD (coronary artery disease) Code(s): I25.10 - ATHSCL HEART DISEASE OF [place] CORONARY ARTERY W/O ANG PCTRS Qualifiers: Coronary Disease-Associated Artery/Lesion type: [place] artery [place] vs. transplanted heart: [place] heart Associated angina: angina presence unspecified Qualified Code(s): I25.10 - Atherosclerotic heart disease of [place] coronary artery without angina pectoris (6) Sepsis Code(s): A41.9 - SEPSIS, UNSPECIFIED ORGANISM Qualifiers: Sepsis type: sepsis due to unspecified organism Qualified Code(s): A41.9 - Sepsis, unspecified organism (7) Lactic acidosis Code(s): E87.2 - ACIDOSIS plan continue abx continue bipap rest as per primary
[2017-05-10] MEDS: MOMETASONE FUROATE 220 MCG/IH INHALER IH SCH (23:19)
[2017-05-10] MEDS: MONTELUKAST NA 10 MG TABLET PO SCH (23:20)
[2017-05-10] MEDS: ATORVASTATIN CA 10 MG TABLET (FP) PO SCH (23:21)
[2017-05-11] MEDS: NYSTATIN 500,000 UNITS/5 ML SUSPENSION PO SCH ×4 (00:04→18:02)
[2017-05-11] MEDS: ALBUTEROL SO4 2.5/IPRATROPIUM 0.5 INH SOL 3 ML VIAL.NEB. NEB SCH ×4 (00:07→18:21)
[2017-05-11] MEDS ORDERED: CEFEPIME HCL 1 GM VIAL (RESTRICTED TO ID) ONE ×4 (01:30→22:04)
[2017-05-11] MEDS ORDERED: DEXTROSE 5%-WATER 100 ML IVPB ONE ×4 (01:31→22:04)
[2017-05-11] MEDS: CEFEPIME 1 GM in DEXTROSE 5%-WATER 100 ML IVPB SCH ×3 (01:38→18:01)
[2017-05-11] MEDS: NAPH,MB-DB/K PH,MBDB POWDER PACKET PO SCH ×3 (07:08→22:37)
[2017-05-11 07:40] LABS: BASOPHIL 0.2 % (0-2.0); MCH 28.7 pg (25.7-33.7); MEAN CELL VOLUME 89.8 fl (80-96); MEAN PLT VOLUME 8.3 fl (7.5-11.1); NEUTROPHILS 98.8 % (42.8-82.8); PLATELET COUNT 194 K/MM3 (134-434); RDW 18.4 % (11.9-15.9)
[2017-05-11 08:06] LABS: ANION GAP 10 (8-16); CALCIUM 7.8 mg/dL (8.5-10.1); CO2 28 mmol/L (21-32); CREATININE 0.5 mg/dL (0.7-1.3); GLUCOSE,RANDOM 166 mg/dL (74-106); MAGNESIUM 2.3 mg/dL (1.8-2.4)
[2017-05-11 08:17] LABS: ALBUMIN 1.9 g/dl (3.4-5.0); BILIRUBIN,DIRECT 0.3 mg/dL (0.0-0.2); BILIRUBIN,TOTAL 0.9 mg/dL (0.2-1.0); TOT PROT 5.1 g/dl (6.4-8.2)
--- NOTE | 2017-05-11 08:39 | PN ---
Progress Note (short form) - Note Progress Note: Patient seen and examined. Chart reviewed. Currently supine in bed, lethargic and less responsive. No apparent distress Bi-PAP in place. Labs radiologic studies, research consultant and daily progress notes reviewed. Selected Entries 05/10/17 05/11/17 22:30 06:00 Temperature 99.5 F Pulse Rate 80 Blood Pressure 139/52 Blood Pressure Supine Position O2 Sat by Pulse 94 L Oximetry (%) Fraction of 70 Inspired Oxygen (FIO2) Weight 184 lb 14.4 oz Laboratory Tests 05/11/17 05/11/17 05/11/17 06:30 06:30 06:30 WBC 12.0 H Hgb 8.9 L Hct 27.9 L Plt Count 194 Sodium 140 Potassium 3.3 L Chloride 102 Carbon Dioxide 28 BUN 22 H Creatinine 0.5 L Random Glucose 166 H Calcium 7.8 L Magnesium 2.3 Total Bilirubin 0.9 D Direct Bilirubin 0.3 H AST 17 D ALT 36 D Alkaline Phosphatase 114 Total Protein 5.1 L Albumin 1.9 L D Chest Bi-PAP in place Scattered rhonchi noted No wheeze Cor RRR No new murmur Abd Soft No mass or tenderness Ext Edema of upper extremities and minimal pedal edema Sal catheter in place with hematuria Neuro No new focal deficit noted Assessment and Plan NSTEMI Continue current Rx ASHD with reported CHF as per previous notes. Edema may be related in part to hypoalbuminemia Respiratory insufficiency Hypoxemia with need for Bi-PAP Acute exacerbation of COPD H/O CVA UTI F/C with hematuria Hypomagnesemia Recheck Hypokalemia 3.3 Replete Pneumonitis Recent CXR noted Possibly related to aspiration/dysphagia Jaymie Ha note appreciated Dysphagia/aspiration As above DNR/DNI status "Sepsis" syndrome with elevated lactic acid level by history Hypoalbuminemia Severe 1.9 Corrected calcium within normal limits IGT On steroids Monitor glucose Anemia 8.5/27.1>>8.9/27.9 Thrush Monitor Continue current Rx as outlined
[2017-05-11] MEDS: ZINC OXIDE 20% TOPICAL OINTMENT 30 GM TUBE TP SCH ×3 (09:06→22:31)
--- NOTE | 2017-05-11 10:24 | PN ---
Progress Note (short form) - Note Progress Note: PULMONARY LESS RESPONSIVE/ON BIPAP VSS/AFEBRILE Anicteric Cardiovascular: Yes: Regular Rate and Rhythm, S1, S2 Respiratory: Yes: Rhonchi (brenna rhonchi) Gastrointestinal: Yes: Normal Bowel Sounds, Soft Extremities: Yes: WNL Edema: No LABS/MEDS/NOTES/IMAGING REVIEWED A/P Acute on Chronic Hypoxic Respiratory Failure Pneumonia Sepsis Lactic Acidosis Acute COPD Exacerbation CAD Acute NSTEMI - antibiotics - medrol - inhaled bronchodilators standing and PRN - O2 to keep SpO2 >90% - BiPAP at night and PRN to assist in work of breathing - pt DNR/DNI - suggest palliative care Elizabeth PELLETIER MD
[2017-05-11] MEDS ORDERED: PT OWN MED DRAWER 7, Y5N ONE (11:16)
[2017-05-11] MEDS: guaiFENesin 600 MG TABLET.ER (FP) PO SCH ×2 (11:30→22:36)
[2017-05-11] MEDS: TAMSULOSIN HCL 0.4 MG CAP.ER.24H (FP) PO SCH (11:30)
[2017-05-11] MEDS: ISOSORBIDE MONONITRATE 60 MG TAB.SR.24H (FP) PO SCH (11:30)
[2017-05-11] MEDS: amLODIPine BESYLATE 10 MG TABLET (FP) PO SCH (11:30)
[2017-05-11] MEDS: POTASSIUM CHLORIDE TABS 20 MEQ TABLET.ER (FP) PO SCH ×2 (11:30→22:35)
[2017-05-11] MEDS: FUROSEMIDE 40 MG TABLET (FP) PO SCH (11:30)
[2017-05-11] MEDS: PANTOPRAZOLE 40 MG TABLET (FP) PO SCH (11:30)
[2017-05-11] MEDS: LORATADINE 10 MG TABLET PO SCH (11:30)
[2017-05-11] MEDS: CLOPIDOGREL BISULFATE 75 MG TABLET (FP) PO SCH (11:30)
[2017-05-11] MEDS: ASPIRIN 81 MG CHEWABLE TABLETS PO SCH (11:31)
[2017-05-11] MEDS: CHOLECALCIFEROL (VITAMIN D3) 1,000 UNIT TABLET (FP) PO SCH (11:31)
[2017-05-11] MEDS: levETIRAcetam 250 MG TABLET (FP) PO SCH ×2 (11:31→22:35)
[2017-05-11] MEDS: ENOXAPARIN NA (PORCINE) 40 MG/0.4 ML DISP.SYRIN SQ SCH (11:31)
[2017-05-11] MEDS: methylPREDNISolone NA SUCC 40 MG/1 ML VIAL IVPB SCH ×2 (11:32→22:38)
--- NOTE | 2017-05-11 12:28 | PN ---
Progress Note, Physician History of Present Illness: patient stable on bipap patients condition detoriating has become bipap dependant - Current Medication List Current Medications: Active Medications Acetaminophen (Tylenol -) 650 mg PO Q6H PRN PRN Reason: FEVER OR PAIN Albuterol/Ipratropium (Duoneb -) 1 amp NEB QIDR [facility] Last Admin: 05/11/17 11:01 Dose: 1 amp Amlodipine Besylate (Norvasc -) 10 mg PO DAILY [facility] Last Admin: 05/11/17 11:30 Dose: 10 mg Aspirin (Asa -) 81 mg PO DAILY [facility] Last Admin: 05/11/17 11:31 Dose: 81 mg Atorvastatin Calcium (Lipitor -) 80 mg PO HS [facility] Last Admin: 05/10/17 23:21 Dose: 80 mg Cholecalciferol (Vitamin D3 -) 1,000 unit PO DAILY [facility] Last Admin: 05/11/17 11:31 Dose: 1,000 unit Cholestyramine Resin (Questran Light Packet -) 4 gm PO BID PRN PRN Reason: cholestrol Clopidogrel Bisulfate (Plavix -) 75 mg PO DAILY [facility] Last Admin: 05/11/17 11:30 Dose: 75 mg Enoxaparin Sodium (Lovenox -) 40 mg SQ DAILY [facility] Last Admin: 05/11/17 11:31 Dose: 40 mg Furosemide (Lasix -) 40 mg PO DAILY [facility] Last Admin: 05/11/17 11:30 Dose: 40 mg Guaifenesin (Mucinex -) 600 mg PO BID [facility] Last Admin: 05/11/17 11:30 Dose: 600 mg Cefepime HCl 1 gm/ Dextrose 100 mls @ 200 mls/hr IVPB Q8H-IV [facility] Last Admin: 05/11/17 11:29 Dose: 200 mls/hr Isosorbide Mononitrate (Imdur -) 60 mg PO DAILY [facility] Last Admin: 05/11/17 11:30 Dose: 60 mg Levetiracetam (Keppra -) 750 mg PO BID [facility] Last Admin: 05/11/17 11:31 Dose: 750 mg Loratadine (Claritin -) 10 mg PO DAILY [facility] Last Admin: 05/11/17 11:30 Dose: 10 mg Methylprednisolone Sodium Succinate (Solu-Medrol -) 40 mg IVPB BID [facility] Last Admin: 05/11/17 11:32 Dose: 40 mg Mometasone Furoate (Asmanex 220mcg -) 1 puff IH [facility] Last Admin: 05/10/17 23:19 Dose: 1 puff Montelukast Sodium (Singulair -) 10 mg PO HS [facility] Last Admin: 05/10/17 23:20 Dose: 10 mg Multi-Ingredient Ointment (Zinc Oxide) 1 applic TP TID [facility] Last Admin: 05/11/17 09:06 Dose: Not Given Nitroglycerin (Nitrostat -) 0.4 mg SL Q5M PRN PRN Reason: CHEST PAIN Nystatin (Nystatin Oral Suspension -) 500,000 units PO Q6HPO [facility] Last Admin: 05/11/17 11:50 Dose: 500,000 units Pantoprazole Sodium (Protonix -) 40 mg PO DAILY [facility] Last Admin: 05/11/17 11:30 Dose: 40 mg Potassium Chloride (K-Dur -) 20 meq PO BID [facility] Last Admin: 05/11/17 11:30 Dose: 20 meq Potassium Phos/Sodium Phos (Phos-Nak Packet -) 1 packet PO TID [facility] Last Admin: 05/11/17 07:08 Dose: Not Given Tamsulosin HCl (Flomax -) 0.4 mg PO DAILY@0830 [facility] Last Admin: 05/11/17 11:30 Dose: 0.4 mg - Objective Vital Signs: Vital Signs Temperature 99.5 F 05/11/17 06:00 Pulse Rate 67 05/11/17 11:00 Respiratory Rate 20 05/11/17 06:00 Blood Pressure 139/52 05/11/17 06:00 O2 Sat by Pulse Oximetry (%) 92 L 05/11/17 11:00 Constitutional: Yes: Calm, Other Cardiovascular: Yes: Regular Rate and Rhythm Respiratory: Yes: On BiPap Gastrointestinal: Yes: Normal Bowel Sounds, Soft Musculoskeletal: Yes: Other Extremities: Yes: Other Neurological: Yes: Other Labs: CBC, BMP 05/11/17 06:30 05/11/17 06:30 INR, PTT INR 1.11 (0.82-1.09) 04/28/17 14:23 Assessment/Plan Problem List - Problems (1) Acute and chronic respiratory failure with hypoxia Code(s): J96.21 - ACUTE AND CHRONIC RESPIRATORY FAILURE WITH HYPOXIA (2) Pneumonia Code(s): J18.9 - PNEUMONIA, UNSPECIFIED ORGANISM Qualifiers: Pneumonia type: due to unspecified organism Laterality: bilateral Lung location: lower lobe of lung Qualified Code(s): J18.9 - Pneumonia, unspecified organism (3) COPD exacerbation Code(s): J44.1 - CHRONIC OBSTRUCTIVE PULMONARY DISEASE W (ACUTE) EXACERBATION (4) NSTEMI (non-ST elevated myocardial infarction) Code(s): I21.4 - NON-ST ELEVATION (NSTEMI) MYOCARDIAL INFARCTION (5) CAD (coronary artery disease) Code(s): I25.10 - ATHSCL HEART DISEASE OF [place] CORONARY ARTERY W/O ANG PCTRS Qualifiers: Coronary Disease-Associated Artery/Lesion type: [place] artery [place] vs. transplanted heart: [place] heart Associated angina: angina presence unspecified Qualified Code(s): I25.10 - Atherosclerotic heart disease of [place] coronary artery without angina pectoris (6) Sepsis Code(s): A41.9 - SEPSIS, UNSPECIFIED ORGANISM Qualifiers: Sepsis type: sepsis due to unspecified organism Qualified Code(s): A41.9 - Sepsis, unspecified organism (7) Lactic acidosis Code(s): E87.2 - ACIDOSIS plan continue abx continue bipap rest as per primary will stop abx tomorrow
--- NOTE | 2017-05-11 14:53 | PN ---
Progress Note, Physician - Current Medication List Current Medications: Active Medications Acetaminophen (Tylenol -) 650 mg PO Q6H PRN PRN Reason: FEVER OR PAIN Albuterol/Ipratropium (Duoneb -) 1 amp NEB QIDR [facility] Last Admin: 05/11/17 11:01 Dose: 1 amp Amlodipine Besylate (Norvasc -) 10 mg PO DAILY [facility] Last Admin: 05/11/17 11:30 Dose: 10 mg Aspirin (Asa -) 81 mg PO DAILY [facility] Last Admin: 05/11/17 11:31 Dose: 81 mg Atorvastatin Calcium (Lipitor -) 80 mg PO HS [facility] Last Admin: 05/10/17 23:21 Dose: 80 mg Cholecalciferol (Vitamin D3 -) 1,000 unit PO DAILY [facility] Last Admin: 05/11/17 11:31 Dose: 1,000 unit Cholestyramine Resin (Questran Light Packet -) 4 gm PO BID PRN PRN Reason: cholestrol Clopidogrel Bisulfate (Plavix -) 75 mg PO DAILY [facility] Last Admin: 05/11/17 11:30 Dose: 75 mg Enoxaparin Sodium (Lovenox -) 40 mg SQ DAILY [facility] Last Admin: 05/11/17 11:31 Dose: 40 mg Furosemide (Lasix -) 40 mg PO DAILY [facility] Last Admin: 05/11/17 11:30 Dose: 40 mg Guaifenesin (Mucinex -) 600 mg PO BID [facility] Last Admin: 05/11/17 11:30 Dose: 600 mg Cefepime HCl 1 gm/ Dextrose 100 mls @ 200 mls/hr IVPB Q8H-IV [facility] Last Admin: 05/11/17 11:29 Dose: 200 mls/hr Isosorbide Mononitrate (Imdur -) 60 mg PO DAILY [facility] Last Admin: 05/11/17 11:30 Dose: 60 mg Levetiracetam (Keppra -) 750 mg PO BID [facility] Last Admin: 05/11/17 11:31 Dose: 750 mg Loratadine (Claritin -) 10 mg PO DAILY [facility] Last Admin: 05/11/17 11:30 Dose: 10 mg Methylprednisolone Sodium Succinate (Solu-Medrol -) 40 mg IVPB BID [facility] Last Admin: 05/11/17 11:32 Dose: 40 mg Mometasone Furoate (Asmanex 220mcg -) 1 puff IH HS [facility] Last Admin: 05/10/17 23:19 Dose: 1 puff Montelukast Sodium (Singulair -) 10 mg PO HS [facility] Last Admin: 05/10/17 23:20 Dose: 10 mg Multi-Ingredient Ointment (Zinc Oxide) 1 applic TP TID [facility] Last Admin: 05/11/17 13:20 Dose: 1 applic Nitroglycerin (Nitrostat -) 0.4 mg SL Q5M PRN PRN Reason: CHEST PAIN Nystatin (Nystatin Oral Suspension -) 500,000 units PO Q6HPO [facility] Last Admin: 05/11/17 11:50 Dose: 500,000 units Pantoprazole Sodium (Protonix -) 40 mg PO DAILY [facility] Last Admin: 05/11/17 11:30 Dose: 40 mg Potassium Chloride (K-Dur -) 20 meq PO BID [facility] Last Admin: 05/11/17 11:30 Dose: 20 meq Potassium Phos/Sodium Phos (Phos-Nak Packet -) 1 packet PO TID [facility] Last Admin: 05/11/17 13:20 Dose: Not Given Tamsulosin HCl (Flomax -) 0.4 mg PO DAILY@0830 [facility] Last Admin: 05/11/17 11:30 Dose: 0.4 mg - Objective Vital Signs: Vital Signs Temperature 99.5 F 05/11/17 06:00 Pulse Rate 67 05/11/17 11:00 Respiratory Rate 20 05/11/17 06:00 Blood Pressure 139/52 05/11/17 06:00 O2 Sat by Pulse Oximetry (%) 92 L 05/11/17 11:00 Eyes: Yes: WNL, Conjunctiva Clear, EOM Intact HENT: Yes: WNL, Atraumatic, Normocephalic Neck: Yes: WNL, Supple, Trachea Midline Cardiovascular: Yes: WNL, Regular Rate and Rhythm Respiratory: Yes: WNL, Regular, CTA Bilaterally Gastrointestinal: Yes: WNL, Normal Bowel Sounds Genitourinary: Yes: WNL Musculoskeletal: Yes: WNL Extremities: Yes: WNL Edema: No Integumentary: Yes: WNL Neurological: Yes: WNL, Alert, Oriented ...Motor Strength: WNL Psychiatric: Yes: WNL Labs: CBC, BMP 05/11/17 06:30 05/11/17 06:30 INR, PTT INR 1.11 (0.82-1.09) 04/28/17 14:23 Assessment/Plan IMP: Sepsis secondary to bilateral PNA NSTEMI Anemia SOB REC: SOB-primarily PNA/Sepsis, possible superimposed acute diastolic CHF -receiving ABx -stopped IV Lasix due to suspected developing intravascular depletion -bun/creat stable -will start Lasix 40mg po daily -suspect component of edema due to 3rd spacing from hypoalbuminemia, does not appear significantly volume overloaded or with sig pulm vasc congestion on exam or Cxr NSTEMI: enzymes trended down -plan for medical management given advanced age and multiple co-morbidities -cont asa, plavix, lipitor, imdur -bblocker was held due to copd -Repeat echo showed overall preserved LV funciton. -no additional planned inpatient cardiac work up at this time.
[2017-05-11] MEDS ORDERED: ATORVASTATIN CA 80 MG TABLET (FP) PO SCH (22:00)
[2017-05-11] MEDS: MONTELUKAST NA 10 MG TABLET PO SCH (22:38)
[2017-05-11] MEDS: MOMETASONE FUROATE 220 MCG/IH INHALER IH SCH (22:38)
[2017-05-12] MEDS: NYSTATIN 500,000 UNITS/5 ML SUSPENSION PO SCH ×3 (00:59→11:32)
[2017-05-12] MEDS: CEFEPIME 1 GM in DEXTROSE 5%-WATER 100 ML IVPB SCH ×2 (02:01→11:35)
[2017-05-12] MEDS: ALBUTEROL SO4 2.5/IPRATROPIUM 0.5 INH SOL 3 ML VIAL.NEB. NEB SCH ×5 (06:30→23:23)
[2017-05-12] MEDS: NAPH,MB-DB/K PH,MBDB POWDER PACKET PO SCH ×2 (06:31→14:25)
[2017-05-12 08:22] LABS: MCH 28.6 pg (25.7-33.7); MCHC 31.5 g/dl (32.0-35.9); MEAN CELL VOLUME 90.8 fl (80-96); MEAN PLT VOLUME 7.7 fl (7.5-11.1); PLATELET COUNT 143 K/MM3 (134-434); RDW 18.4 % (11.9-15.9); WHITE BLOOD COUNT 12.7 K/mm3 (4.0-10.0)
[2017-05-12 08:36] LABS: ALBUMIN 1.7 g/dl (3.4-5.0); ANION GAP 6 (8-16); CALCIUM 7.9 mg/dL (8.5-10.1); CO2 33 mmol/L (21-32); CREATININE 0.5 mg/dL (0.7-1.3); GLUCOSE,RANDOM 171 mg/dL (74-106); MAGNESIUM 2.4 mg/dL (1.8-2.4); PHOSPHOROUS 2.7 mg/dL (2.5-4.9); SGOT/AST 15 U/L (15-37); SGPT/ALT 30 U/L (12-78)
[2017-05-12 08:38] LABS: ALK PHOS 105 U/L (45-117); BILIRUBIN,TOTAL 0.7 mg/dL (0.2-1.0); TOT PROT 4.9 g/dl (6.4-8.2)
--- NOTE | 2017-05-12 08:52 | PN ---
Progress Note, Physician Chief Complaint: on BiPAP at bedside no distress - Current Medication List Current Medications: Active Medications Acetaminophen (Tylenol -) 650 mg PO Q6H PRN PRN Reason: FEVER OR PAIN Albuterol/Ipratropium (Duoneb -) 1 amp NEB QIDR [facility] Last Admin: 05/12/17 06:30 Dose: 1 amp Amlodipine Besylate (Norvasc -) 10 mg PO DAILY [facility] Last Admin: 05/11/17 11:30 Dose: 10 mg Aspirin (Asa -) 81 mg PO DAILY [facility] Last Admin: 05/11/17 11:31 Dose: 81 mg Atorvastatin Calcium (Lipitor -) 80 mg PO HS [facility] Last Admin: 05/11/17 22:36 Dose: 80 mg Cholecalciferol (Vitamin D3 -) 1,000 unit PO DAILY [facility] Last Admin: 05/11/17 11:31 Dose: 1,000 unit Cholestyramine Resin (Questran Light Packet -) 4 gm PO BID PRN PRN Reason: cholestrol Clopidogrel Bisulfate (Plavix -) 75 mg PO DAILY [facility] Last Admin: 05/11/17 11:30 Dose: 75 mg Enoxaparin Sodium (Lovenox -) 40 mg SQ DAILY [facility] Last Admin: 05/11/17 11:31 Dose: 40 mg Furosemide (Lasix -) 40 mg PO DAILY [facility] Last Admin: 05/11/17 11:30 Dose: 40 mg Guaifenesin (Mucinex -) 600 mg PO BID [facility] Last Admin: 05/11/17 22:36 Dose: 600 mg Cefepime HCl 1 gm/ Dextrose 100 mls @ 200 mls/hr IVPB Q8H-IV [facility] Last Admin: 05/12/17 02:01 Dose: 200 mls/hr Isosorbide Mononitrate (Imdur -) 60 mg PO DAILY [facility] Last Admin: 05/11/17 11:30 Dose: 60 mg Levetiracetam (Keppra -) 750 mg PO BID [facility] Last Admin: 05/11/17 22:35 Dose: 750 mg Loratadine (Claritin -) 10 mg PO DAILY [facility] Last Admin: 05/11/17 11:30 Dose: 10 mg Methylprednisolone Sodium Succinate (Solu-Medrol -) 40 mg IVPB BID [facility] Last Admin: 05/11/17 22:38 Dose: 40 mg Mometasone Furoate (Asmanex 220mcg -) 1 puff IH HS [facility] Last Admin: 05/11/17 22:38 Dose: 1 puff Montelukast Sodium (Singulair -) 10 mg PO HS [facility] Last Admin: 05/11/17 22:38 Dose: 10 mg Multi-Ingredient Ointment (Zinc Oxide) 1 applic TP TID [facility] Last Admin: 05/11/17 22:31 Dose: 1 applic Nitroglycerin (Nitrostat -) 0.4 mg SL Q5M PRN PRN Reason: CHEST PAIN Nystatin (Nystatin Oral Suspension -) 500,000 units PO Q6HPO [facility] Last Admin: 05/12/17 06:31 Dose: Not Given Pantoprazole Sodium (Protonix -) 40 mg PO DAILY [facility] Last Admin: 05/11/17 11:30 Dose: 40 mg Potassium Chloride (K-Dur -) 20 meq PO BID [facility] Last Admin: 05/11/17 22:35 Dose: 20 meq Potassium Phos/Sodium Phos (Phos-Nak Packet -) 1 packet PO TID [facility] Last Admin: 05/12/17 06:31 Dose: Not Given Tamsulosin HCl (Flomax -) 0.4 mg PO DAILY@0830 [facility] Last Admin: 05/11/17 11:30 Dose: 0.4 mg - Objective Vital Signs: Vital Signs Temperature 98.2 F 05/11/17 18:00 Pulse Rate 80 05/11/17 18:00 Respiratory Rate 22 05/11/17 21:00 Blood Pressure 145/56 05/11/17 18:00 O2 Sat by Pulse Oximetry (%) 92 L 05/11/17 11:00 Constitutional: Yes: No Distress Eyes: Yes: Conjunctiva Clear Cardiovascular: Yes: Regular Rate and Rhythm Respiratory: Yes: CTA Bilaterally Gastrointestinal: Yes: Soft Edema: No Labs: CBC, BMP 05/12/17 07:30 05/12/17 07:30 INR, PTT INR 1.11 (0.82-1.09) 04/28/17 14:23 Laboratory Tests 05/12/17 05/12/17 07:30 07:30 WBC 12.7 H Hgb 7.9 L D Hct 25.2 L Plt Count 143 D Sodium 144 Potassium 3.4 L Creatinine 0.5 L AST 15 ALT 30 Alkaline Phosphatase 105 Problem List - Problems (1) Acute and chronic respiratory failure with hypoxia Code(s): J96.21 - ACUTE AND CHRONIC RESPIRATORY FAILURE WITH HYPOXIA (2) Pneumonia Code(s): J18.9 - PNEUMONIA, UNSPECIFIED ORGANISM Qualifiers: Pneumonia type: due to unspecified organism Laterality: bilateral Lung location: lower lobe of lung Qualified Code(s): J18.9 - Pneumonia, unspecified organism (3) NSTEMI (non-ST elevated myocardial infarction) Code(s): I21.4 - NON-ST ELEVATION (NSTEMI) MYOCARDIAL INFARCTION (4) SIRS (systemic inflammatory response syndrome) Code(s): R65.10 - SIRS OF NON-INFECTIOUS ORIGIN W/O ACUTE ORGAN DYSFUNCTION (5) COPD exacerbation Code(s): J44.1 - CHRONIC OBSTRUCTIVE PULMONARY DISEASE W (ACUTE) EXACERBATION Assessment/Plan Sepsis secondary to bilateral PNA NSTEMI Anemia SOB REC: SOB-primarily PNA/Sepsis, possible superimposed acute diastolic CHF -stopped IV Lasix due to suspected developing intravascular depletion, now on PO -suspect component of edema due to 3rd spacing from hypoalbuminemia, does not appear significantly volume overloaded or with sig pulm vasc congestion on exam or Cxr NSTEMI: enzymes trended down -plan for medical management given advanced age and multiple co-morbidities -cont asa, plavix, lipitor, imdur -bblocker was held due to copd -Repeat echo showed overall preserved LV funciton. -no additional planned inpatient cardiac work up at this time.
[2017-05-12 10:25] LABS: PLATELET ESTIMATE ADEQUATE (NORMAL); TOTAL CELLS COUNTED 100
--- NOTE | 2017-05-12 10:44 | PN ---
Progress Note, Physician Chief Complaint: Mr Oropeza says he feels fine. Denies cp, sob, n/v. - Current Medication List Current Medications: Active Medications Acetaminophen (Tylenol -) 650 mg PO Q6H PRN PRN Reason: FEVER OR PAIN Albuterol/Ipratropium (Duoneb -) 1 amp NEB QIDR [facility] Last Admin: 05/12/17 06:30 Dose: 1 amp Amlodipine Besylate (Norvasc -) 10 mg PO DAILY [facility] Last Admin: 05/11/17 11:30 Dose: 10 mg Aspirin (Asa -) 81 mg PO DAILY [facility] Last Admin: 05/11/17 11:31 Dose: 81 mg Atorvastatin Calcium (Lipitor -) 80 mg PO HS [facility] Last Admin: 05/11/17 22:36 Dose: 80 mg Cholecalciferol (Vitamin D3 -) 1,000 unit PO DAILY [facility] Last Admin: 05/11/17 11:31 Dose: 1,000 unit Cholestyramine Resin (Questran Light Packet -) 4 gm PO BID PRN PRN Reason: cholestrol Clopidogrel Bisulfate (Plavix -) 75 mg PO DAILY [facility] Last Admin: 05/11/17 11:30 Dose: 75 mg Enoxaparin Sodium (Lovenox -) 40 mg SQ DAILY [facility] Last Admin: 05/11/17 11:31 Dose: 40 mg Furosemide (Lasix -) 40 mg PO DAILY [facility] Last Admin: 05/11/17 11:30 Dose: 40 mg Guaifenesin (Mucinex -) 600 mg PO BID [facility] Last Admin: 05/11/17 22:36 Dose: 600 mg Cefepime HCl 1 gm/ Dextrose 100 mls @ 200 mls/hr IVPB Q8H-IV [facility] Last Admin: 05/12/17 02:01 Dose: 200 mls/hr Isosorbide Mononitrate (Imdur -) 60 mg PO DAILY [facility] Last Admin: 05/11/17 11:30 Dose: 60 mg Levetiracetam (Keppra -) 750 mg PO BID [facility] Last Admin: 05/11/17 22:35 Dose: 750 mg Loratadine (Claritin -) 10 mg PO DAILY [facility] Last Admin: 05/11/17 11:30 Dose: 10 mg Methylprednisolone Sodium Succinate (Solu-Medrol -) 40 mg IVPB BID [facility] Last Admin: 05/11/17 22:38 Dose: 40 mg Mometasone Furoate (Asmanex 220mcg -) 1 puff IH [facility] Last Admin: 05/11/17 22:38 Dose: 1 puff Montelukast Sodium (Singulair -) 10 mg PO HS [facility] Last Admin: 05/11/17 22:38 Dose: 10 mg Multi-Ingredient Ointment (Zinc Oxide) 1 applic TP TID [facility] Last Admin: 05/11/17 22:31 Dose: 1 applic Nitroglycerin (Nitrostat -) 0.4 mg SL Q5M PRN PRN Reason: CHEST PAIN Nystatin (Nystatin Oral Suspension -) 500,000 units PO Q6HPO [facility] Last Admin: 05/12/17 06:31 Dose: Not Given Pantoprazole Sodium (Protonix -) 40 mg PO DAILY [facility] Last Admin: 05/11/17 11:30 Dose: 40 mg Potassium Chloride (K-Dur -) 20 meq PO BID [facility] Last Admin: 05/11/17 22:35 Dose: 20 meq Potassium Phos/Sodium Phos (Phos-Nak Packet -) 1 packet PO TID [facility] Last Admin: 05/12/17 06:31 Dose: Not Given Tamsulosin HCl (Flomax -) 0.4 mg PO DAILY@0830 [facility] Last Admin: 05/11/17 11:30 Dose: 0.4 mg - Objective Vital Signs: Vital Signs Temperature 36.8 C 05/11/17 18:00 Pulse Rate 73 05/12/17 10:16 Respiratory Rate 22 05/11/17 21:00 Blood Pressure 145/56 05/11/17 18:00 O2 Sat by Pulse Oximetry (%) 97 05/12/17 10:16 Constitutional: Yes: No Distress, Calm, Other (lethargic but arousable to voice) Cardiovascular: Yes: Regular Rate and Rhythm. No: Gallop, Murmur, Rub Respiratory: Yes: Regular, On BiPap, Rhonchi. No: CTA Bilaterally, Rales, Wheezes Gastrointestinal: Yes: Normal Bowel Sounds, Soft. No: Distention, Tenderness Extremities: Yes: WNL Edema: No Labs: CBC, BMP 05/12/17 07:30 05/12/17 07:30 INR, PTT INR 1.11 (0.82-1.09) 04/28/17 14:23 Problem List - Problems (1) NSTEMI (non-ST elevated myocardial infarction) Code(s): I21.4 - NON-ST ELEVATION (NSTEMI) MYOCARDIAL INFARCTION (2) Acute and chronic respiratory failure with hypoxia Code(s): J96.21 - ACUTE AND CHRONIC RESPIRATORY FAILURE WITH HYPOXIA (3) COPD exacerbation Code(s): J44.1 - CHRONIC OBSTRUCTIVE PULMONARY DISEASE W (ACUTE) EXACERBATION (4) Sepsis Code(s): A41.9 - SEPSIS, UNSPECIFIED ORGANISM Qualifiers: Sepsis type: sepsis due to unspecified organism Qualified Code(s): A41.9 - Sepsis, unspecified organism (5) CAD (coronary artery disease) Code(s): I25.10 - ATHSCL HEART DISEASE OF [place] CORONARY ARTERY W/O ANG PCTRS Qualifiers: Coronary Disease-Associated Artery/Lesion type: [place] artery [place] vs. transplanted heart: [place] heart Associated angina: angina presence unspecified Qualified Code(s): I25.10 - Atherosclerotic heart disease of [place] coronary artery without angina pectoris (6) CHF (congestive heart failure) Code(s): I50.9 - HEART FAILURE, UNSPECIFIED Qualifiers: Congestive heart failure type: diastolic Congestive heart failure chronicity: acute on chronic Qualified Code(s): I50.33 - Acute on chronic diastolic (congestive) heart failure (7) CVA (cerebral vascular accident) Code(s): I63.9 - CEREBRAL INFARCTION, UNSPECIFIED Qualifiers: CVA mechanism: unspecified Qualified Code(s): I63.9 - Cerebral infarction, unspecified (8) UTI (urinary tract infection) Code(s): N39.0 - URINARY TRACT INFECTION, SITE NOT SPECIFIED Assessment/Plan (1) NSTEMI (non-ST elevated myocardial infarction) Assessment/Plan: -appreciate cardiology assistance -medical management Code(s): I21.4 - NON-ST ELEVATION (NSTEMI) MYOCARDIAL INFARCTION (2) Acute and chronic respiratory failure with hypoxia Assessment/Plan: -worsened today -now bipap dependent -continue solumedrol and bronchodilators -poor prognosis Code(s): J96.21 - ACUTE AND CHRONIC RESPIRATORY FAILURE WITH HYPOXIA (3) COPD exacerbation Assessment/Plan: -as above Code(s): J44.1 - CHRONIC OBSTRUCTIVE PULMONARY DISEASE W (ACUTE) EXACERBATION (4) Sepsis Assessment/Plan -continue cefepime and vancomycin -ID following -duration per Dr Farley, possible cessation today Code(s): A41.9 - SEPSIS, UNSPECIFIED ORGANISM Qualifiers: Sepsis type: sepsis due to unspecified organism Qualified Code(s): A41.9 - Sepsis, unspecified organism (5) CAD (coronary artery disease) Assessment/Plan: -continue medical management Code(s): I25.10 - ATHSCL HEART DISEASE OF [place] CORONARY ARTERY W/O ANG PCTRS Qualifiers: Coronary Disease-Associated Artery/Lesion type: [place] artery [place] vs. transplanted heart: [place] heart Associated angina: angina presence unspecified Qualified Code(s): I25.10 - Atherosclerotic heart disease of [place] coronary artery without angina pectoris (6) CHF (congestive heart failure) Assessment/Plan: -continue lasix Code(s): I50.9 - HEART FAILURE, UNSPECIFIED Qualifiers: Congestive heart failure type: diastolic Congestive heart failure chronicity: acute on chronic Qualified Code(s): (7) CVA (cerebral vascular accident) Assessment/Plan: -continue plavix Code(s): I63.9 - CEREBRAL INFARCTION, UNSPECIFIED Qualifiers: CVA mechanism: unspecified Qualified Code(s): I63.9 - Cerebral infarction, unspecified (8) UTI (urinary tract infection) Assessment/Plan: -urine cultures negative Code(s): N39.0 - URINARY TRACT INFECTION, SITE NOT SPECIFIED (9) Hypermagnesemia -stopped maalox (10) Thrush -s/p diflucan -resolved Dispo -patient now bipap dependent -appropriate for palliative care: [facility] vs inpatient hospice
[2017-05-12] MEDS ORDERED: CEFEPIME HCL 1 GM VIAL (RESTRICTED TO ID) ONE (11:23)
[2017-05-12] MEDS ORDERED: DEXTROSE 5%-WATER 100 ML IVPB ONE (11:23)
[2017-05-12] MEDS: amLODIPine BESYLATE 10 MG TABLET (FP) PO SCH (11:32)
[2017-05-12] MEDS: POTASSIUM CHLORIDE TABS 20 MEQ TABLET.ER (FP) PO SCH (11:32)
[2017-05-12] MEDS: ENOXAPARIN NA (PORCINE) 40 MG/0.4 ML DISP.SYRIN SQ SCH (11:32)
[2017-05-12] MEDS: guaiFENesin 600 MG TABLET.ER (FP) PO SCH (11:32)
[2017-05-12] MEDS: LORATADINE 10 MG TABLET PO SCH (11:33)
[2017-05-12] MEDS: ISOSORBIDE MONONITRATE 60 MG TAB.SR.24H (FP) PO SCH (11:33)
[2017-05-12] MEDS: PANTOPRAZOLE 40 MG TABLET (FP) PO SCH (11:33)
[2017-05-12] MEDS: ASPIRIN 81 MG CHEWABLE TABLETS PO SCH (11:33)
[2017-05-12] MEDS: TAMSULOSIN HCL 0.4 MG CAP.ER.24H (FP) PO SCH (11:33)
[2017-05-12] MEDS: CHOLECALCIFEROL (VITAMIN D3) 1,000 UNIT TABLET (FP) PO SCH (11:33)
[2017-05-12] MEDS: CLOPIDOGREL BISULFATE 75 MG TABLET (FP) PO SCH (11:33)
[2017-05-12] MEDS: levETIRAcetam 250 MG TABLET (FP) PO SCH ×2 (11:34→22:31)
[2017-05-12] MEDS: FUROSEMIDE 40 MG TABLET (FP) PO SCH (11:34)
[2017-05-12] MEDS: methylPREDNISolone NA SUCC 40 MG/1 ML VIAL IVPB SCH ×2 (11:35→22:31)
--- NOTE | 2017-05-12 11:42 | PN ---
Progress Note, Physician History of Present Illness: patient awake bipap dependant not eating says he is not hungry - Current Medication List Current Medications: Active Medications Acetaminophen (Tylenol -) 650 mg PO Q6H PRN PRN Reason: FEVER OR PAIN Albuterol/Ipratropium (Duoneb -) 1 amp NEB QIDR [facility] Last Admin: 05/12/17 10:40 Dose: 1 amp Amlodipine Besylate (Norvasc -) 10 mg PO DAILY [facility] Last Admin: 05/12/17 11:32 Dose: 10 mg Aspirin (Asa -) 81 mg PO DAILY [facility] Last Admin: 05/12/17 11:33 Dose: 81 mg Atorvastatin Calcium (Lipitor -) 80 mg PO HS [facility] Last Admin: 05/11/17 22:36 Dose: 80 mg Cholecalciferol (Vitamin D3 -) 1,000 unit PO DAILY [facility] Last Admin: 05/12/17 11:33 Dose: 1,000 unit Cholestyramine Resin (Questran Light Packet -) 4 gm PO BID PRN PRN Reason: cholestrol Clopidogrel Bisulfate (Plavix -) 75 mg PO DAILY [facility] Last Admin: 05/12/17 11:33 Dose: 75 mg Enoxaparin Sodium (Lovenox -) 40 mg SQ DAILY [facility] Last Admin: 05/12/17 11:32 Dose: 40 mg Furosemide (Lasix -) 40 mg PO DAILY [facility] Last Admin: 05/12/17 11:34 Dose: 40 mg Guaifenesin (Mucinex -) 600 mg PO BID [facility] Last Admin: 05/12/17 11:32 Dose: 600 mg Isosorbide Mononitrate (Imdur -) 60 mg PO DAILY [facility] Last Admin: 05/12/17 11:33 Dose: 60 mg Levetiracetam (Keppra -) 750 mg PO BID [facility] Last Admin: 05/12/17 11:34 Dose: 750 mg Loratadine (Claritin -) 10 mg PO DAILY [facility] Last Admin: 05/12/17 11:33 Dose: 10 mg Methylprednisolone Sodium Succinate (Solu-Medrol -) 40 mg IVPB BID [facility] Last Admin: 05/12/17 11:35 Dose: 40 mg Mometasone Furoate (Asmanex 220mcg -) 1 puff IH HS [facility] Last Admin: 05/11/17 22:38 Dose: 1 puff Montelukast Sodium (Singulair -) 10 mg PO HS [facility] Last Admin: 05/11/17 22:38 Dose: 10 mg Multi-Ingredient Ointment (Zinc Oxide) 1 applic TP TID [facility] Last Admin: 05/11/17 22:31 Dose: 1 applic Nitroglycerin (Nitrostat -) 0.4 mg SL Q5M PRN PRN Reason: CHEST PAIN Nystatin (Nystatin Oral Suspension -) 500,000 units PO Q6HPO [facility] Last Admin: 05/12/17 11:32 Dose: 500,000 units Pantoprazole Sodium (Protonix -) 40 mg PO DAILY [facility] Last Admin: 05/12/17 11:33 Dose: 40 mg Potassium Chloride (K-Dur -) 20 meq PO BID [facility] Last Admin: 05/12/17 11:32 Dose: 20 meq Potassium Phos/Sodium Phos (Phos-Nak Packet -) 1 packet PO TID [facility] Last Admin: 05/12/17 06:31 Dose: Not Given Tamsulosin HCl (Flomax -) 0.4 mg PO DAILY@0830 [facility] Last Admin: 05/12/17 11:33 Dose: 0.4 mg - Objective Vital Signs: Vital Signs Temperature 98.2 F 05/11/17 18:00 Pulse Rate 73 05/12/17 10:16 Respiratory Rate 22 05/11/17 21:00 Blood Pressure 145/56 05/11/17 18:00 O2 Sat by Pulse Oximetry (%) 97 05/12/17 10:16 Constitutional: Yes: No Distress, Calm Cardiovascular: Yes: Regular Rate and Rhythm Respiratory: Yes: On BiPap, Poor Air Entry Musculoskeletal: Yes: Other Edema: LLE: Trace, RLE: Trace Neurological: Yes: Alert Psychiatric: Yes: Alert Labs: CBC, BMP 05/12/17 07:30 05/12/17 07:30 INR, PTT INR 1.11 (0.82-1.09) 04/28/17 14:23 Assessment/Plan Problem List - Problems (1) Acute and chronic respiratory failure with hypoxia Code(s): J96.21 - ACUTE AND CHRONIC RESPIRATORY FAILURE WITH HYPOXIA (2) Pneumonia Code(s): J18.9 - PNEUMONIA, UNSPECIFIED ORGANISM Qualifiers: Pneumonia type: due to unspecified organism Laterality: bilateral Lung location: lower lobe of lung Qualified Code(s): J18.9 - Pneumonia, unspecified organism (3) COPD exacerbation Code(s): J44.1 - CHRONIC OBSTRUCTIVE PULMONARY DISEASE W (ACUTE) EXACERBATION (4) NSTEMI (non-ST elevated myocardial infarction) Code(s): I21.4 - NON-ST ELEVATION (NSTEMI) MYOCARDIAL INFARCTION (5) CAD (coronary artery disease) Code(s): I25.10 - ATHSCL HEART DISEASE OF [place] CORONARY ARTERY W/O ANG PCTRS Qualifiers: Coronary Disease-Associated Artery/Lesion type: [place] artery [place] vs. transplanted heart: [place] heart Associated angina: angina presence unspecified Qualified Code(s): I25.10 - Atherosclerotic heart disease of [place] coronary artery without angina pectoris (6) Sepsis Code(s): A41.9 - SEPSIS, UNSPECIFIED ORGANISM Qualifiers: Sepsis type: sepsis due to unspecified organism Qualified Code(s): A41.9 - Sepsis, unspecified organism (7) Lactic acidosis Code(s): E87.2 - ACIDOSIS plan stop abx after the morning dose continue bipap support
[2017-05-12] MEDS: ZINC OXIDE 20% TOPICAL OINTMENT 30 GM TUBE TP SCH ×3 (12:04→22:32)
--- NOTE | 2017-05-12 14:01 | PN ---
Progress Note, Physician History of Present Illness: PULMONARY AWAKE ON BIPAP ,-RESP DISTRESS - Current Medication List Current Medications: Active Medications Acetaminophen (Tylenol -) 650 mg PO Q6H PRN PRN Reason: FEVER OR PAIN Albuterol/Ipratropium (Duoneb -) 1 amp NEB QIDR [facility] Last Admin: 05/12/17 10:40 Dose: 1 amp Amlodipine Besylate (Norvasc -) 10 mg PO DAILY [facility] Last Admin: 05/12/17 11:32 Dose: 10 mg Aspirin (Asa -) 81 mg PO DAILY [facility] Last Admin: 05/12/17 11:33 Dose: 81 mg Atorvastatin Calcium (Lipitor -) 80 mg PO HS [facility] Last Admin: 05/11/17 22:36 Dose: 80 mg Cholecalciferol (Vitamin D3 -) 1,000 unit PO DAILY [facility] Last Admin: 05/12/17 11:33 Dose: 1,000 unit Cholestyramine Resin (Questran Light Packet -) 4 gm PO BID PRN PRN Reason: cholestrol Clopidogrel Bisulfate (Plavix -) 75 mg PO DAILY [facility] Last Admin: 05/12/17 11:33 Dose: 75 mg Enoxaparin Sodium (Lovenox -) 40 mg SQ DAILY [facility] Last Admin: 05/12/17 11:32 Dose: 40 mg Furosemide (Lasix -) 40 mg PO DAILY [facility] Last Admin: 05/12/17 11:34 Dose: 40 mg Guaifenesin (Mucinex -) 600 mg PO BID [facility] Last Admin: 05/12/17 11:32 Dose: 600 mg Isosorbide Mononitrate (Imdur -) 60 mg PO DAILY [facility] Last Admin: 05/12/17 11:33 Dose: 60 mg Levetiracetam (Keppra -) 750 mg PO BID [facility] Last Admin: 05/12/17 11:34 Dose: 750 mg Loratadine (Claritin -) 10 mg PO DAILY [facility] Last Admin: 05/12/17 11:33 Dose: 10 mg Methylprednisolone Sodium Succinate (Solu-Medrol -) 40 mg IVPB BID [facility] Last Admin: 05/12/17 11:35 Dose: 40 mg Mometasone Furoate (Asmanex 220mcg -) 1 puff IH HS [facility] Last Admin: 05/11/17 22:38 Dose: 1 puff Montelukast Sodium (Singulair -) 10 mg PO HS [facility] Last Admin: 05/11/17 22:38 Dose: 10 mg Multi-Ingredient Ointment (Zinc Oxide) 1 applic TP TID [facility] Last Admin: 05/12/17 12:04 Dose: Not Given Nitroglycerin (Nitrostat -) 0.4 mg SL Q5M PRN PRN Reason: CHEST PAIN Nystatin (Nystatin Oral Suspension -) 500,000 units PO Q6HPO [facility] Last Admin: 05/12/17 11:32 Dose: 500,000 units Pantoprazole Sodium (Protonix -) 40 mg PO DAILY [facility] Last Admin: 05/12/17 11:33 Dose: 40 mg Potassium Chloride (K-Dur -) 20 meq PO BID [facility] Last Admin: 05/12/17 11:32 Dose: 20 meq Potassium Phos/Sodium Phos (Phos-Nak Packet -) 1 packet PO TID [facility] Last Admin: 05/12/17 06:31 Dose: Not Given Tamsulosin HCl (Flomax -) 0.4 mg PO DAILY@0830 [facility] Last Admin: 05/12/17 11:33 Dose: 0.4 mg - Objective Vital Signs: Vital Signs Temperature 99.4 F 05/12/17 10:00 Pulse Rate 73 05/12/17 10:16 Respiratory Rate 16 05/12/17 10:00 Blood Pressure 140/65 05/12/17 10:00 O2 Sat by Pulse Oximetry (%) 97 05/12/17 10:16 Constitutional: Yes: Well Nourished, Calm Eyes: Yes: WNL HENT: Yes: WNL Neck: Yes: WNL Cardiovascular: Yes: Regular Rate and Rhythm, S1, S2 Respiratory: Yes: Rhonchi (FEW SCATTERED RHONCHI) Extremities: Yes: WNL Edema: No Labs: CBC, BMP 05/12/17 07:30 05/12/17 07:30 INR, PTT INR 1.11 (0.82-1.09) 04/28/17 14:23 Assessment/Plan A/P Acute on Chronic Hypoxic Respiratory Failure Pneumonia Sepsis Lactic Acidosis Acute COPD Exacerbation CAD Acute NSTEMI - medrol - inhaled bronchodilators standing and PRN - O2 to keep SpO2 >90% - BiPAP at night and PRN to assist in work of breathing - pt DNR/DNI Problem List - Problems (1) Acute and chronic respiratory failure with hypoxia Code(s): J96.21 - ACUTE AND CHRONIC RESPIRATORY FAILURE WITH HYPOXIA (2) Pneumonia Code(s): J18.9 - PNEUMONIA, UNSPECIFIED ORGANISM Qualifiers: Pneumonia type: due to unspecified organism Laterality: bilateral Lung location: lower lobe of lung Qualified Code(s): J18.9 - Pneumonia, unspecified organism (3) COPD exacerbation Code(s): J44.1 - CHRONIC OBSTRUCTIVE PULMONARY DISEASE W (ACUTE) EXACERBATION (4) NSTEMI (non-ST elevated myocardial infarction) Code(s): I21.4 - NON-ST ELEVATION (NSTEMI) MYOCARDIAL INFARCTION (5) CAD (coronary artery disease) Code(s): I25.10 - ATHSCL HEART DISEASE OF [place] CORONARY ARTERY W/O ANG PCTRS Qualifiers: Coronary Disease-Associated Artery/Lesion type: [place] artery [place] vs. transplanted heart: [place] heart Associated angina: angina presence unspecified Qualified Code(s): I25.10 - Atherosclerotic heart disease of [place] coronary artery without angina pectoris (6) Sepsis Code(s): A41.9 - SEPSIS, UNSPECIFIED ORGANISM Qualifiers: Sepsis type: sepsis due to unspecified organism Qualified Code(s): A41.9 - Sepsis, unspecified organism (7) Lactic acidosis Code(s): E87.2 - ACIDOSIS
[2017-05-12] MEDS ORDERED: PT OWN MED DRAWER 7, Y5N ONE (14:15)
[2017-05-12] MEDS ORDERED: morphine CARPU-JECT 2 MG/1 ML DISP.SYRIN IVPUSH ONE (15:56)
[2017-05-12] MEDS: MORPHINE 100 MG in SODIUM CHLORIDE 98 ML IVPB SCH (17:54)
[2017-05-12] MEDS: SCOPOLAMINE HYDROBROMIDE 1 PATCH PATCH.TD72 TD SCH (18:35)
[2017-05-12] MEDS: MOMETASONE FUROATE 220 MCG/IH INHALER IH SCH (22:31)
[2017-05-13] MEDS: ZINC OXIDE 20% TOPICAL OINTMENT 30 GM TUBE TP SCH ×3 (06:00→21:37)
[2017-05-13] MEDS: ALBUTEROL SO4 2.5/IPRATROPIUM 0.5 INH SOL 3 ML VIAL.NEB. NEB SCH (06:30)
--- NOTE | 2017-05-13 09:43 | PN ---
Progress Note, Physician History of Present Illness: patient on face mask family considering hospice very weak not taking anything by mouth - Current Medication List Current Medications: Active Medications Acetaminophen (Tylenol -) 650 mg PO Q6H PRN PRN Reason: FEVER OR PAIN Albuterol/Ipratropium (Duoneb -) 1 amp NEB QIDR [facility] Last Admin: 05/13/17 06:30 Dose: 1 amp Furosemide (Lasix -) 40 mg PO DAILY [facility] Last Admin: 05/12/17 11:34 Dose: 40 mg Morphine Sulfate 100 mg/ (Sodium Chloride) 100 mls @ 1 mls/hr IVPB TITR [facility]; 1 MG/HR PRN Reason: Protocol Last Titration: 05/13/17 08:37 Dose: 2 mg/hr Levetiracetam (Keppra -) 750 mg PO BID [facility] Last Admin: 05/12/17 22:31 Dose: 750 mg Loratadine (Claritin -) 10 mg PO DAILY [facility] Last Admin: 05/12/17 11:33 Dose: 10 mg Lorazepam (Ativan Injection -) 1 mg IVPUSH Q4H PRN PRN Reason: ANXIETY Methylprednisolone Sodium Succinate (Solu-Medrol -) 40 mg IVPB BID [facility] Last Admin: 05/12/17 22:31 Dose: 40 mg Mometasone Furoate (Asmanex 220mcg -) 1 puff IH HS [facility] Last Admin: 05/12/17 22:31 Dose: 1 puff Multi-Ingredient Ointment (Zinc Oxide) 1 applic TP TID [facility] Last Admin: 05/13/17 06:00 Dose: 1 applic Pantoprazole Sodium (Protonix -) 40 mg PO DAILY [facility] Last Admin: 05/12/17 11:33 Dose: 40 mg Scopolamine HBr (Transderm-Scop -) 1 patch TD Q72H [facility] Last Admin: 05/12/17 18:35 Dose: 1 patch - Objective Vital Signs: Vital Signs Temperature 98.3 F 05/13/17 06:00 Pulse Rate 80 05/13/17 06:00 Respiratory Rate 20 05/13/17 06:00 Blood Pressure 150/50 05/13/17 06:00 O2 Sat by Pulse Oximetry (%) 97 05/12/17 10:16 Constitutional: Yes: No Distress, Calm Cardiovascular: Yes: Regular Rate and Rhythm Respiratory: Yes: On Venti-Mask, Poor Air Entry, Other Gastrointestinal: Yes: Normal Bowel Sounds, Soft Musculoskeletal: Yes: Other Extremities: Yes: Other Neurological: Yes: Alert Psychiatric: Yes: Alert Labs: CBC, BMP 05/12/17 07:30 05/12/17 07:30 INR, PTT INR 1.11 (0.82-1.09) 04/28/17 14:23 Assessment/Plan Problem List - Problems (1) Acute and chronic respiratory failure with hypoxia Code(s): J96.21 - ACUTE AND CHRONIC RESPIRATORY FAILURE WITH HYPOXIA (2) Pneumonia Code(s): J18.9 - PNEUMONIA, UNSPECIFIED ORGANISM Qualifiers: Pneumonia type: due to unspecified organism Laterality: bilateral Lung location: lower lobe of lung Qualified Code(s): J18.9 - Pneumonia, unspecified organism (3) COPD exacerbation Code(s): J44.1 - CHRONIC OBSTRUCTIVE PULMONARY DISEASE W (ACUTE) EXACERBATION (4) NSTEMI (non-ST elevated myocardial infarction) Code(s): I21.4 - NON-ST ELEVATION (NSTEMI) MYOCARDIAL INFARCTION (5) CAD (coronary artery disease) Code(s): I25.10 - ATHSCL HEART DISEASE OF [place] CORONARY ARTERY W/O ANG PCTRS Qualifiers: Coronary Disease-Associated Artery/Lesion type: [place] artery [place] vs. transplanted heart: [place] heart Associated angina: angina presence unspecified Qualified Code(s): I25.10 - Atherosclerotic heart disease of [place] coronary artery without angina pectoris (6) Sepsis Code(s): A41.9 - SEPSIS, UNSPECIFIED ORGANISM Qualifiers: Sepsis type: sepsis due to unspecified organism Qualified Code(s): A41.9 - Sepsis, unspecified organism (7) Lactic acidosis Code(s): E87.2 - ACIDOSIS plan continue resp support no further abx rest as per primary team
[2017-05-13] MEDS: LORATADINE 10 MG TABLET PO SCH (10:38)
[2017-05-13] MEDS: FUROSEMIDE 40 MG TABLET (FP) PO SCH (10:39)
[2017-05-13] MEDS: PANTOPRAZOLE 40 MG TABLET (FP) PO SCH (10:39)
[2017-05-13] MEDS: levETIRAcetam 250 MG TABLET (FP) PO SCH ×2 (10:46→21:36)
--- NOTE | 2017-05-13 10:49 | PN ---
Progress Note, Physician Chief Complaint: Mr Oropeza says he feels fine. Denies cp, sob, n/v. - Current Medication List Current Medications: Active Medications Acetaminophen (Tylenol -) 650 mg PO Q6H PRN PRN Reason: FEVER OR PAIN Albuterol/Ipratropium (Duoneb -) 1 amp NEB QIDR PRN PRN Reason: SHORTNESS OF BREATH Furosemide (Lasix -) 40 mg PO DAILY [facility] Last Admin: 05/13/17 10:39 Dose: 40 mg Morphine Sulfate 100 mg/ (Sodium Chloride) 100 mls @ 1 mls/hr IVPB TITR [facility]; 1 MG/HR PRN Reason: Protocol Last Titration: 05/13/17 08:37 Dose: 2 mg/hr Levetiracetam (Keppra -) 750 mg PO BID [facility] Last Admin: 05/13/17 10:46 Dose: 750 mg Loratadine (Claritin -) 10 mg PO DAILY [facility] Last Admin: 05/13/17 10:38 Dose: 10 mg Lorazepam (Ativan Injection -) 1 mg IVPUSH Q4H PRN PRN Reason: ANXIETY Methylprednisolone Sodium Succinate (Solu-Medrol -) 40 mg IVPB DAILY [facility] 234 B[facility]S AT [facility] Mometasone Furoate (Asmanex 220mcg -) 1 puff IH HS [facility] Last Admin: 05/12/17 22:31 Dose: 1 puff Multi-Ingredient Ointment (Zinc Oxide) 1 applic TP TID [facility] Last Admin: 05/13/17 06:00 Dose: 1 applic Pantoprazole Sodium (Protonix -) 40 mg PO DAILY [facility] Last Admin: 05/13/17 10:39 Dose: 40 mg Scopolamine HBr (Transderm-Scop -) 1 patch TD Q72H [facility] 234 B[facility]S [facility] Last Admin: 05/12/17 18:35 Dose: 1 patch - Objective Vital Signs: Vital Signs Temperature 36.8 C 05/13/17 06:00 Pulse Rate 100 H 05/13/17 10:00 Respiratory Rate 24 05/13/17 10:00 Blood Pressure 142/52 05/13/17 10:00 O2 Sat by Pulse Oximetry (%) 97 05/12/17 10:16 Constitutional: Yes: Well Nourished, No Distress, Calm Respiratory: Yes: Regular, On Venti-Mask, Rhonchi. No: Rales, Wheezes Labs: CBC, BMP 08/28/17 07:30 05/12/17 07:30 INR, PTT INR 1.11 (0.82-1.09) 04/28/17 14:23 Problem List - Problems (1) NSTEMI (non-ST elevated myocardial infarction) Code(s): I21.4 - NON-ST ELEVATION (NSTEMI) MYOCARDIAL INFARCTION (2) Acute and chronic respiratory failure with hypoxia Code(s): J96.21 - ACUTE AND CHRONIC RESPIRATORY FAILURE WITH HYPOXIA (3) COPD exacerbation Code(s): J44.1 - CHRONIC OBSTRUCTIVE PULMONARY DISEASE W (ACUTE) EXACERBATION (4) Sepsis Code(s): A41.9 - SEPSIS, UNSPECIFIED ORGANISM Qualifiers: Sepsis type: sepsis due to unspecified organism Qualified Code(s): A41.9 - Sepsis, unspecified organism (5) CAD (coronary artery disease) Code(s): I25.10 - ATHSCL HEART DISEASE OF [place] CORONARY ARTERY W/O ANG PCTRS Qualifiers: Coronary Disease-Associated Artery/Lesion type: [place] artery [place] vs. transplanted heart: [place] heart Associated angina: angina presence unspecified Qualified Code(s): I25.10 - Atherosclerotic heart disease of [place] coronary artery without angina pectoris (6) CHF (congestive heart failure) Code(s): I50.9 - HEART FAILURE, UNSPECIFIED Qualifiers: Congestive heart failure type: diastolic Congestive heart failure chronicity: acute on chronic Qualified Code(s): I50.33 - Acute on chronic diastolic (congestive) heart failure (7) CVA (cerebral vascular accident) Code(s): I63.9 - CEREBRAL INFARCTION, UNSPECIFIED Qualifiers: CVA mechanism: unspecified Qualified Code(s): I63.9 - Cerebral infarction, unspecified (8) UTI (urinary tract infection) Code(s): N39.0 - URINARY TRACT INFECTION, SITE NOT SPECIFIED Assessment/Plan (1) NSTEMI (non-ST elevated myocardial infarction) Code(s): I21.4 - NON-ST ELEVATION (NSTEMI) MYOCARDIAL INFARCTION (2) Acute and chronic respiratory failure with hypoxia Code(s): J96.21 - ACUTE AND CHRONIC RESPIRATORY FAILURE WITH HYPOXIA (3) COPD exacerbation Code(s): J44.1 - CHRONIC OBSTRUCTIVE PULMONARY DISEASE W (ACUTE) EXACERBATION (4) Sepsis Code(s): A41.9 - SEPSIS, UNSPECIFIED ORGANISM Qualifiers: Sepsis type: sepsis due to unspecified organism Qualified Code(s): A41.9 - Sepsis, unspecified organism (5) CAD (coronary artery disease) Code(s): I25.10 - ATHSCL HEART DISEASE OF [place] CORONARY ARTERY W/O ANG PCTRS Qualifiers: Coronary Disease-Associated Artery/Lesion type: [place] artery [place] vs. transplanted heart: [place] heart Associated angina: angina presence unspecified Qualified Code(s): I25.10 - Atherosclerotic heart disease of [place] coronary artery without angina pectoris (6) CHF (congestive heart failure) Code(s): I50.9 - HEART FAILURE, UNSPECIFIED Qualifiers: Congestive heart failure type: diastolic Congestive heart failure chronicity: acute on chronic Qualified Code(s): (7) CVA (cerebral vascular accident) Code(s): I63.9 - CEREBRAL INFARCTION, UNSPECIFIED Qualifiers: CVA mechanism: unspecified Qualified Code(s): I63.9 - Cerebral infarction, unspecified (8) UTI (urinary tract infection) Code(s): N39.0 - URINARY TRACT INFECTION, SITE NOT SPECIFIED (9) Hypermagnesemia (10) Thrush Plan -on inpatient hospice -continue morphine gtt -decrease steroids today with intention to wean -continue comfort care
[2017-05-13] MEDS: ALBUTEROL SO4 2.5/IPRATROPIUM 0.5 INH SOL 3 ML VIAL.NEB. NEB PRN ×3 (11:12→22:36)
[2017-05-13] MEDS: methylPREDNISolone NA SUCC 40 MG/1 ML VIAL IVPB SCH (11:27)
[2017-05-13] MEDS: MORPHINE 100 MG in SODIUM CHLORIDE 98 ML IVPB SCH (17:26)
[2017-05-13] MEDS: MOMETASONE FUROATE 220 MCG/IH INHALER IH SCH (21:36)
[2017-05-14] MEDS: ZINC OXIDE 20% TOPICAL OINTMENT 30 GM TUBE TP SCH (06:26)
[2017-05-14] MEDS: ALBUTEROL SO4 2.5/IPRATROPIUM 0.5 INH SOL 3 ML VIAL.NEB. NEB PRN (07:29)
[2017-05-14] MEDS: LORATADINE 10 MG TABLET PO SCH (09:14)
[2017-05-14] MEDS: levETIRAcetam 250 MG TABLET (FP) PO SCH (09:14)
[2017-05-14] MEDS: FUROSEMIDE 40 MG TABLET (FP) PO SCH (09:15)
[2017-05-14] MEDS: PANTOPRAZOLE 40 MG TABLET (FP) PO SCH (09:15)
[2017-05-14] MEDS ORDERED: methylPREDNISolone NA SUCC 40 MG/1 ML VIAL IVPB SCH (10:00)
--- NOTE | 2017-05-14 13:38 | PN ---
Progress Note, Physician Chief Complaint: Unable to obtain - Current Medication List Current Medications: Active Medications Albuterol/Ipratropium (Duoneb -) 1 amp NEB QIDR PRN PRN Reason: SHORTNESS OF BREATH Last Admin: 05/14/17 07:29 Dose: 1 amp Morphine Sulfate 100 mg/ (Sodium Chloride) 100 mls @ 1 mls/hr IVPB TITR [facility]; 1 MG/HR PRN Reason: Protocol Last Admin: 05/13/17 17:26 Dose: Not Given Lorazepam (Ativan Injection -) 1 mg IVPUSH Q4H PRN PRN Reason: ANXIETY Scopolamine HBr (Transderm-Scop -) 1 patch TD Q72H [facility] Last Admin: 05/12/17 18:35 Dose: 1 patch - Objective Vital Signs: Vital Signs Temperature 37.7 C H 05/14/17 06:24 Pulse Rate 100 H 05/14/17 06:24 Respiratory Rate 20 05/14/17 06:24 Blood Pressure 144/48 05/14/17 06:24 O2 Sat by Pulse Oximetry (%) 97 05/13/17 11:15 Constitutional: Yes: No Distress Respiratory: Yes: Rhonchi Labs: CBC, BMP 05/12/17 07:30 05/12/17 07:30 INR, PTT INR 1.11 (0.82-1.09) 04/28/17 14:23 Problem List - Problems (1) NSTEMI (non-ST elevated myocardial infarction) Code(s): I21.4 - NON-ST ELEVATION (NSTEMI) MYOCARDIAL INFARCTION (2) Acute and chronic respiratory failure with hypoxia Code(s): J96.21 - ACUTE AND CHRONIC RESPIRATORY FAILURE WITH HYPOXIA (3) COPD exacerbation Code(s): J44.1 - CHRONIC OBSTRUCTIVE PULMONARY DISEASE W (ACUTE) EXACERBATION (4) Sepsis Code(s): A41.9 - SEPSIS, UNSPECIFIED ORGANISM Qualifiers: Sepsis type: sepsis due to unspecified organism Qualified Code(s): A41.9 - Sepsis, unspecified organism (5) CAD (coronary artery disease) Code(s): I25.10 - ATHSCL HEART DISEASE OF [place] CORONARY ARTERY W/O ANG PCTRS Qualifiers: Coronary Disease-Associated Artery/Lesion type: [place] artery [place] vs. transplanted heart: [place] heart Associated angina: angina presence unspecified Qualified Code(s): I25.10 - Atherosclerotic heart disease of [place] coronary artery without angina pectoris (6) CHF (congestive heart failure) Code(s): I50.9 - HEART FAILURE, UNSPECIFIED Qualifiers: Congestive heart failure type: diastolic Congestive heart failure chronicity: acute on chronic Qualified Code(s): I50.33 - Acute on chronic diastolic (congestive) heart failure (7) CVA (cerebral vascular accident) Code(s): I63.9 - CEREBRAL INFARCTION, UNSPECIFIED Qualifiers: CVA mechanism: unspecified Qualified Code(s): I63.9 - Cerebral infarction, unspecified (8) UTI (urinary tract infection) Code(s): N39.0 - URINARY TRACT INFECTION, SITE NOT SPECIFIED Assessment/Plan (1) NSTEMI (non-ST elevated myocardial infarction) Code(s): I21.4 - NON-ST ELEVATION (NSTEMI) MYOCARDIAL INFARCTION (2) Acute and chronic respiratory failure with hypoxia Code(s): J96.21 - ACUTE AND CHRONIC RESPIRATORY FAILURE WITH HYPOXIA (3) COPD exacerbation Code(s): J44.1 - CHRONIC OBSTRUCTIVE PULMONARY DISEASE W (ACUTE) EXACERBATION (4) Sepsis Code(s): A41.9 - SEPSIS, UNSPECIFIED ORGANISM Qualifiers: Sepsis type: sepsis due to unspecified organism Qualified Code(s): A41.9 - Sepsis, unspecified organism (5) CAD (coronary artery disease) Code(s): I25.10 - ATHSCL HEART DISEASE OF [place] CORONARY ARTERY W/O ANG PCTRS Qualifiers: Coronary Disease-Associated Artery/Lesion type: [place] artery [place] vs. transplanted heart: [place] heart Associated angina: angina presence unspecified Qualified Code(s): I25.10 - Atherosclerotic heart disease of [place] coronary artery without angina pectoris (6) CHF (congestive heart failure) Code(s): I50.9 - HEART FAILURE, UNSPECIFIED Qualifiers: Congestive heart failure type: diastolic Congestive heart failure chronicity: acute on chronic Qualified Code(s): (7) CVA (cerebral vascular accident) Code(s): I63.9 - CEREBRAL INFARCTION, UNSPECIFIED Qualifiers: CVA mechanism: unspecified Qualified Code(s): I63.9 - Cerebral infarction, unspecified (8) UTI (urinary tract infection) Code(s): N39.0 - URINARY TRACT INFECTION, SITE NOT SPECIFIED (9) Hypermagnesemia (10) Thrush Plan -on inpatient hospice -continue morphine gtt -stop steroids -pr tylenol for fevers
[2017-05-14] MEDS: MORPHINE 100 MG in SODIUM CHLORIDE 98 ML IVPB SCH (14:49)
[2017-05-14] MEDS ORDERED: ACETAMINOPHEN 650 MG SUPP.RECT PR PRN (15:19)
[2017-05-15 07:25] VITALS: PULSE 95; TEMP 99.8
[2017-05-15 09:27] VITALS: BP 120/38
--- NOTE | 2017-05-15 11:00 | PN ---
Progress Note, Physician Chief Complaint: Unable to obtain - Current Medication List Current Medications: Active Medications Acetaminophen (Tylenol Suppository -) 650 mg [place] Q4H PRN PRN Reason: FEVER OR PAIN Albuterol/Ipratropium (Duoneb -) 1 amp NEB QIDR PRN PRN Reason: SHORTNESS OF BREATH Last Admin: 05/14/17 07:29 Dose: 1 amp Morphine Sulfate 100 mg/ (Sodium Chloride) 100 mls @ 1 mls/hr IVPB TITR CAREY; 1 MG/HR PRN Reason: Protocol Last Admin: 05/14/17 14:49 Dose: 2 mls/hr Lorazepam (Ativan Injection -) 1 mg IVPUSH Q4H PRN PRN Reason: ANXIETY Scopolamine HBr (Transderm-Scop -) 1 patch TD Q72H CAREY Last Admin: 05/12/17 18:35 Dose: 1 patch - Objective Vital Signs: Vital Signs Temperature 37.7 C H 05/15/17 06:23 Pulse Rate 95 H 05/15/17 06:23 Respiratory Rate 18 05/15/17 06:23 Blood Pressure 120/38 05/15/17 09:26 O2 Sat by Pulse Oximetry (%) 44 L 05/14/17 09:00 Constitutional: Yes: Calm Respiratory: Yes: Rales, Rhonchi Labs: CBC, BMP 05/12/17 07:30 05/12/17 07:30 INR, PTT INR 1.11 (0.82-1.09) 04/28/17 14:23 Problem List - Problems (1) NSTEMI (non-ST elevated myocardial infarction) Code(s): I21.4 - NON-ST ELEVATION (NSTEMI) MYOCARDIAL INFARCTION (2) Acute and chronic respiratory failure with hypoxia Code(s): J96.21 - ACUTE AND CHRONIC RESPIRATORY FAILURE WITH HYPOXIA (3) COPD exacerbation Code(s): J44.1 - CHRONIC OBSTRUCTIVE PULMONARY DISEASE W (ACUTE) EXACERBATION (4) Sepsis Code(s): A41.9 - SEPSIS, UNSPECIFIED ORGANISM Qualifiers: Sepsis type: sepsis due to unspecified organism Qualified Code(s): A41.9 - Sepsis, unspecified organism (5) CAD (coronary artery disease) Code(s): I25.10 - ATHSCL HEART DISEASE OF [place] CORONARY ARTERY W/O ANG PCTRS Qualifiers: Coronary Disease-Associated Artery/Lesion type: [place] artery [place] vs. transplanted heart: [place] heart Associated angina: angina presence unspecified Qualified Code(s): I25.10 - Atherosclerotic heart disease of [place] coronary artery without angina pectoris (6) CHF (congestive heart failure) Code(s): I50.9 - HEART FAILURE, UNSPECIFIED Qualifiers: Congestive heart failure type: diastolic Congestive heart failure chronicity: acute on chronic Qualified Code(s): I50.33 - Acute on chronic diastolic (congestive) heart failure (7) CVA (cerebral vascular accident) Code(s): I63.9 - CEREBRAL INFARCTION, UNSPECIFIED Qualifiers: CVA mechanism: unspecified Qualified Code(s): I63.9 - Cerebral infarction, unspecified (8) UTI (urinary tract infection) Code(s): N39.0 - URINARY TRACT INFECTION, SITE NOT SPECIFIED Assessment/Plan (1) NSTEMI (non-ST elevated myocardial infarction) Code(s): I21.4 - NON-ST ELEVATION (NSTEMI) MYOCARDIAL INFARCTION (2) Acute and chronic respiratory failure with hypoxia Code(s): J96.21 - ACUTE AND CHRONIC RESPIRATORY FAILURE WITH HYPOXIA (3) COPD exacerbation Code(s): J44.1 - CHRONIC OBSTRUCTIVE PULMONARY DISEASE W (ACUTE) EXACERBATION (4) Sepsis Code(s): A41.9 - SEPSIS, UNSPECIFIED ORGANISM Qualifiers: Sepsis type: sepsis due to unspecified organism Qualified Code(s): A41.9 - Sepsis, unspecified organism (5) CAD (coronary artery disease) Code(s): I25.10 - ATHSCL HEART DISEASE OF [place] CORONARY ARTERY W/O ANG PCTRS Qualifiers: Coronary Disease-Associated Artery/Lesion type: [place] artery [place] vs. transplanted heart: [place] heart Associated angina: angina presence unspecified Qualified Code(s): I25.10 - Atherosclerotic heart disease of [place] coronary artery without angina pectoris (6) CHF (congestive heart failure) Code(s): I50.9 - HEART FAILURE, UNSPECIFIED Qualifiers: Congestive heart failure type: diastolic Congestive heart failure chronicity: acute on chronic Qualified Code(s): (7) CVA (cerebral vascular accident) Code(s): I63.9 - CEREBRAL INFARCTION, UNSPECIFIED Qualifiers: CVA mechanism: unspecified Qualified Code(s): I63.9 - Cerebral infarction, unspecified (8) UTI (urinary tract infection) Code(s): N39.0 - URINARY TRACT INFECTION, SITE NOT SPECIFIED (9) Hypermagnesemia (10) Thrush Plan -on inpatient hospice -continue morphine gtt -continue prn ativan for agitation -continue scopolamine patch -continue prn tylenol case d/w family at bedside
--- NOTE | 2017-05-15 13:21 | PN ---
Progress Note, Physician History of Present Illness: patient on face mask on hospice now patient essentially non responsive - Current Medication List Current Medications: Active Medications Acetaminophen (Tylenol Suppository -) 650 mg [place] Q4H PRN PRN Reason: FEVER OR PAIN Albuterol/Ipratropium (Duoneb -) 1 amp NEB QIDR PRN PRN Reason: SHORTNESS OF BREATH Last Admin: 05/14/17 07:29 Dose: 1 amp Morphine Sulfate 100 mg/ (Sodium Chloride) 100 mls @ 1 mls/hr IVPB TITR CAREY; 1 MG/HR PRN Reason: Protocol Last Admin: 05/14/17 14:49 Dose: 2 mls/hr Lorazepam (Ativan Injection -) 1 mg IVPUSH Q4H PRN PRN Reason: ANXIETY Scopolamine HBr (Transderm-Scop -) 1 patch TD Q72H CAREY Last Admin: 05/12/17 18:35 Dose: 1 patch - Objective Vital Signs: Vital Signs Temperature 99.8 F H 05/15/17 06:23 Pulse Rate 95 H 05/15/17 06:23 Respiratory Rate 18 05/15/17 06:23 Blood Pressure 120/38 05/15/17 09:26 O2 Sat by Pulse Oximetry (%) 44 L 05/14/17 09:00 Constitutional: Yes: No Distress Respiratory: Yes: Poor Air Entry, Rales Gastrointestinal: Yes: Normal Bowel Sounds, Soft Labs: CBC, BMP 05/12/17 07:30 05/12/17 07:30 INR, PTT INR 1.11 (0.82-1.09) 04/28/17 14:23 Assessment/Plan Problem List - Problems (1) Acute and chronic respiratory failure with hypoxia Code(s): J96.21 - ACUTE AND CHRONIC RESPIRATORY FAILURE WITH HYPOXIA (2) Pneumonia Code(s): J18.9 - PNEUMONIA, UNSPECIFIED ORGANISM Qualifiers: Pneumonia type: due to unspecified organism Laterality: bilateral Lung location: lower lobe of lung Qualified Code(s): J18.9 - Pneumonia, unspecified organism (3) COPD exacerbation Code(s): J44.1 - CHRONIC OBSTRUCTIVE PULMONARY DISEASE W (ACUTE) EXACERBATION (4) NSTEMI (non-ST elevated myocardial infarction) Code(s): I21.4 - NON-ST ELEVATION (NSTEMI) MYOCARDIAL INFARCTION (5) CAD (coronary artery disease) Code(s): I25.10 - ATHSCL HEART DISEASE OF [place] CORONARY ARTERY W/O ANG PCTRS Qualifiers: Coronary Disease-Associated Artery/Lesion type: [place] artery [place] vs. transplanted heart: [place] heart Associated angina: angina presence unspecified Qualified Code(s): I25.10 - Atherosclerotic heart disease of [place] coronary artery without angina pectoris (6) Sepsis Code(s): A41.9 - SEPSIS, UNSPECIFIED ORGANISM Qualifiers: Sepsis type: sepsis due to unspecified organism Qualified Code(s): A41.9 - Sepsis, unspecified organism (7) Lactic acidosis Code(s): E87.2 - ACIDOSIS plan continue resp support on hospice now
[2017-05-15] MEDS ORDERED: PT OWN MED DRAWER 7, Y5N ONE (17:46)
[2017-05-15] MEDS: SCOPOLAMINE HYDROBROMIDE 1 PATCH PATCH.TD72 TD SCH (17:48)
[2017-05-15] MEDS: MORPHINE 100 MG in SODIUM CHLORIDE 98 ML IVPB SCH ×2 (17:48→17:49)
--- NOTE | 2017-05-15 21:31 | HOSP ---
Subjective - Review of Symptoms Events since last encounter: Paged by RN. Patient was found to be pulseless and not breathing. Pt was examined at bedside. Pupils were fixed, dilated, and nonreactive to light. Corneal reflex was absent, pt was without pulse. There is no spontaneous breathing. Auscultation revealed absence of any heart or lung sounds. Pt was pronounced at 6:50 pm on 05/15/2017 Family at bedside. A call was placed to Dr. Burgess's group Physical Examination Vital Signs: Vital Signs Temperature 99.8 F H 05/15/17 06:23 Pulse Rate 95 H 05/15/17 06:23 Respiratory Rate 18 05/15/17 06:23 Blood Pressure 120/38 05/15/17 09:26 O2 Sat by Pulse Oximetry (%) 44 L 05/14/17 09:00 Labs: CBC, BMP 05/12/17 07:30 05/12/17 07:30 Visit type - Emergency Visit Emergency Visit: Yes ED Registration Date: 04/28/17 Care time: The patient presented to the Emergency Department on the above date and was hospitalized for further evaluation of their emergent condition. - New Patient This patient is new to me today: Yes Date on this admission: 05/18/17 - Critical Care Critical Care patient: No
== END 2017-05-15 21:30 | disposition expired | DRG 871 ==
LOC: JER 13:30 → JERBED 15:58 → J4W 04-29 00:07 → J8W 05-02 12:11
PROVIDERS: ADMIT Internal Medicine; ATTEND Internal Medicine
PROC: 5A09557 Assistance with Respiratory Ventilation, Greater than 96 Consecutive Hours, Continuous Positive Airway Pressure (ICD-10-PCS; principal; 2017-05-07)
DX: A41.9 Sepsis, unspecified organism (principal); I21.4 Non-ST elevation (NSTEMI) myocardial infarction; J96.21 Acute and chronic respiratory failure with hypoxia; J18.9 Pneumonia, unspecified organism; I50.31 Acute diastolic (congestive) heart failure; J44.1 Chronic obstructive pulmonary disease with (acute) exacerbation; E87.2 Acidosis; B37.0 Candidal stomatitis; Z66 Do not resuscitate; Z51.5 Encounter for palliative care; I25.10 Atherosclerotic heart disease of native coronary artery without angina pectoris; I11.0 Hypertensive heart disease with heart failure; Z86.73 Personal history of transient ischemic attack (TIA), and cerebral infarction without residual deficits; Z85.46 Personal history of malignant neoplasm of prostate; Z95.5 Presence of coronary angioplasty implant and graft; K21.9 Gastro-esophageal reflux disease without esophagitis; Z87.891 Personal history of nicotine dependence; R13.10 Dysphagia, unspecified; E66.9 Obesity, unspecified; Z68.29 Body mass index [BMI] 29.0-29.9, adult; E83.41 Hypermagnesemia; E88.09 Other disorders of plasma-protein metabolism, not elsewhere classified; E87.6 Hypokalemia
CPT/HCPCS: 36415; 36600; 71010-TC; 71275-TC; 74230-TC; 80048; 80053; 80076; 81003; 81015; 82553; 82803; 83605; 83735; 84100; 84484; 85025; 85610; 85730; 86850; 86900; 86901; 87040; 87077; 87086; 92611-GN; 93005; 93010; 93306-TC; 94150; 94640; 94660; 97162-GP; 99285-25; G0480; J1644